=== PATIENT | female | born 1930 | race Caucasian/White ===

== ENCOUNTER 2017-07-16 18:39 | Inpatient (IN) | payer MEDICARE, MEDICAID ==
[2017-07-16] VITALS (7 sets, daily range): BP systolic 104–140; BP diastolic 60–71
[~2017-07-16] VITALS: Ht 152.4 cm; Wt 77.1 kg
[~2017-07-16 18:39] MED LIST: ACETAMINOPHEN80 M2 PO; ARICEPT10 MG ORAL; BACTRIM-DS1 EA ORAL; BENAZEPRIL HCL20 MG ORAL; BENZONATATE100 MG ORAL; BETHANECHOL CHL10 MG ORAL; BISACODYL10 M1 RC; CALCITONIN-SAL3.7 ML NS; CALCIUM CARBON500 M1 PO; DOCUSATE SODIU100 M2 ORAL; GABAPENTIN100 MG ORAL; IRBESARTAN300 MG ORAL; LIDODERM700 M1 TOPIC; MIRALAX17 G2 ORAL; MIRTAZAPINE7.5 MG ORAL; MOM30 ML ORAL; OSTEO BI-FLEX1 EAC3 PO; REGLAN10 MG ORAL; UNOBMED; VITAMIN D1000 UNI1 ORAL; ZANTAC300 MG ORAL
[2017-07-16 19:22] LABS: BASOPHILS % (AUTO) 0.5 % (0.0-2.0); EOSINOPHILS % (AUTO) 0.1 % (0.0-3.0); HEMATOCRIT 31.2 % (37.0-47.0); HEMOGLOBIN 9.1 G/DL (12.0-16.0); LYMPHOCYTES % (AUTO) 25.2 % (20.0-45.0); MEAN CORPUSCULAR VOLUME 91 FL (80-99); MONOCYTES % (AUTO) 2.3 % (1.0-10.0); PLATELET COUNT 330 K/UL (150-450); RED BLOOD COUNT 3.44 M/UL (4.20-5.40); RED CELL DISTRIBUTION WIDTH 21.2 % (11.6-14.8); WHITE BLOOD COUNT 15.7 K/UL (4.8-10.8)
[2017-07-16 19:28] LABS: ANION GAP 13 mmol/L (5-15); BLOOD UREA NITROGEN 24 mg/dL (7-18); CALCIUM 8.2 MG/DL (8.5-10.1); CARBON DIOXIDE 22 MMOL/L (21-32); CHLORIDE 98 MMOL/L (98-107); CREATININE 0.9 MG/DL (0.55-1.30); POTASSIUM 5.3 MMOL/L (3.5-5.1); SODIUM 133 MMOL/L (136-145)
[2017-07-16 19:42] LABS: ALANINE AMINOTRANSFERASE 26 U/L (12-78); ALBUMIN/GLOBULIN RATIO 0.5 (1.0-2.7); ALKALINE PHOSPHATASE 69 U/L (46-116); ASPARTATE AMINO TRANSFERASE 138 U/L (15-37); BILIRUBIN,TOTAL 0.2 MG/DL (0.2-1.0); CKMB 14.9 NG/ML (0.0-3.6); CREATINE KINASE 267 U/L (26-308)
[2017-07-16] MEDS ORDERED: AMLODIPINE BESY10 MG GT (19:47)
[2017-07-16] MEDS ORDERED: METOPROLOL TART25 MG GT (19:47)
[2017-07-16] MEDS ORDERED: LISINOPRIL5 MG GT (19:47)
[2017-07-16] MEDS ORDERED: BETHANECHOL CHL10 MG GT (19:47)
[2017-07-16] MEDS ORDERED: CLOPIDOGREL75 MG GT (19:47)
[2017-07-16] MEDS ORDERED: PRAVASTATIN SOD80 M1 GT (19:50)
[2017-07-16] MEDS ORDERED: ZANTAC150 MG GT (19:52)
[2017-07-16] MEDS ORDERED: ELIQUIS2.5 MG GT (19:52)
[2017-07-16] MEDS ORDERED: ACIDOPHILUS1 EAC4 GT (19:54)
[2017-07-16] MEDS ORDERED: CALCIUM500 M2 GT (19:54)
[2017-07-16] MEDS ORDERED: MELATONIN 3 MG1 EAC1 GT (19:59)
[2017-07-16] MEDS ORDERED: DOCUSATE SODIU100 M2 GT (19:59)
[2017-07-16] MEDS ORDERED: FOLIC ACID1 MG GT (19:59)
[2017-07-16] MEDS ORDERED: REGLAN10 M1 GT (20:03)
[2017-07-16] MEDS ORDERED: FERROUS SU220 MG/53 GT (20:03)
[2017-07-16] MEDS ORDERED: MULTIVITAMINS1 EAC2 GT (20:03)
[2017-07-16] MEDS ORDERED: ACETAMINOPHEN325 M1 GT (20:04)
[2017-07-16] MEDS ORDERED: NORCO 5-325 TA1 EAC1 GT (20:05)
[2017-07-16] MEDS ORDERED: VITAMIN B COMP1 EAC5 GT (20:09)
[2017-07-16 20:10] LABS: BILIRUBIN, URINE NEGATIVE (NEGATIVE); GLUCOSE, URINE (UA) NEGATIVE (NEGATIVE); KETONES,URINE NEGATIVE (NEGATIVE); LEUKOCYTE ESTERASE ,URINE 3+ (NEGATIVE); NITRITE,URINE NEGATIVE (NEGATIVE); PH,URINE 7 (4.5-8.0); PROTEIN,URINE 2+ (NEGATIVE); UROBILINOGEN,URINE 1 MG/DL (0.0-1.0)
[2017-07-16] MEDS ORDERED: GABAPENTIN100 MG GT (20:11)
[2017-07-16] MEDS ORDERED: ARICEPT10 MG GT (20:11)
[2017-07-16] MEDS ORDERED: LORATADINE10 M2 GT (20:11)
[2017-07-16 20:14] LABS: APPEARANCE,URINE SLIGHTLY CLOUDY; COLOR,URINE YELLOW
[2017-07-16] MEDS ORDERED: MIRALAX17 G2 GT (20:23)
[2017-07-16] MEDS ORDERED: CALCITONIN-SAL3.7 ML NS (20:23)
[2017-07-16] MEDS ORDERED: IPRATROPIU0.2 MG/1 M HHN (20:23)
[2017-07-16] MEDS ORDERED: OMEPRAZOLE40 M1 GT (20:24)
[2017-07-16] MEDS ORDERED: CARAFATE1 GM/10 M1 GT (20:33)
[2017-07-16] MEDS ORDERED: MILK OF MA400 MG/51 GT (20:39)
[2017-07-16] MEDS ORDERED: Azithromycin 500 MG in NS 275 ML IV ONE (21:45)
[2017-07-16] MEDS ORDERED: Piperacillin/Tazobactam 3.375 GM in NS 55 ML IVPB ONE (21:45)
[2017-07-16] MEDS ORDERED: Zosyn 3.375gm inj ONE (22:05)
--- NOTE | 2017-07-16 22:09 | Pulmonolgy Critical Care Note ---
Critical Care - Asmt/Plan Assessment/Plan: Acute hypoxemic respiratory failure requiring intubation Sepsis with shock PNA UTI with Staph aureus NSTEMI LBBB Acute toxic metabolic encephalopathy on chronic dementia ( likely due to to sepsis, NSTEMI) Acute anemia requiring blood transfusion Lactic acidosis Transaminitis Severe protein calorie malnutrition Dehydration Plan Transfered to ICU Orally inubated on vent support Titrate FiO2 up maintain O2 saturation above 92% Pulmonary toilet today ABG stable, Fup with daily CXR and ABG Respiratory: adjust tidal volume, monitor respiratory rate, adjust FIO2, CXR, ABG Cardiac: continue to monitor HR/BP Renal: F/U I&O Infectious Disease: check cultures, continue antibiotics Gastrointestinal: hold feedings Endocrine: monitor blood sugar Hematologic: monitor H/H Neurologic: PRN Ativan, PRN Morphine Affect: PRN ativan Prophylaxis: Protonix, SCDs Disposition: keep in ICU Time Spent (Minutes): 40 Notes Reviewed: tv technician Discussed with: nurses, consultants, case packer and sealericu manager - Objective Last 24 Hour Vital Signs Date Time Temp Pulse Resp B/P (MAP) Pulse Ox O2 Delivery O2 Flow Rate FiO2 07/16/17 21:04 87 14 100 07/16/17 20:50 100 07/16/17 19:02 110 38 Bi-pap 100 07/16/17 19:00 100 07/16/17 18:59 110 38 97 Facial 100 07/16/17 18:41 108 28 Bi-pap 100 07/16/17 18:41 99.1 108 28 104/60 92 Mechanical Ventilator 07/16/17 18:31 98.2 109 26 146/63 81 Non-Rebreather Status: obtunded Condition: critical HEENT: atraumatic, normocephalic Neck: full ROM Lungs: rhonchi Heart: HR/BP stable, regular Abdomen: soft, non-tender, active bowel sounds Extremities: no C/C/E Critical Care - Subjective ROS Limited/Unobtainable: Yes Condition: critical EKG Rhythm: Sinus Rhythm FI02: 100 Vent Support Breath Rate: 14 Vent Support Mode: AC Vent Tidal Volume: 500 Sputum Amount: Small PEEP: 0 PIP: 18 I&O: Intake and Output 07/16/17 07/17/17 19:00 07:00 Output Total 150 ml Balance -150 ml Output Urine Total 150 ml # Voids 1 ET-Tube: 7.5 ET Position: 22 ANGELA BROWN Jul 16, 2017 22:08
[2017-07-16] MEDS ORDERED: Miralax 17gm pkt ORAL PRN (22:15)
[2017-07-16] MEDS ORDERED: Morphine Sulfate 4mg/ml Inj IVP PRN (22:15)
[2017-07-16] MEDS ORDERED: Albuterol/Ipratropium 3ml neb HHN PRN (22:15)
[2017-07-16 22:42] LABS: INR 1.1 (0.9-1.1)
[2017-07-16] MEDS ORDERED: Azithromycin 500mg Inj IV ONE (22:51)
--- NOTE | 2017-07-16 22:54 | Emergency Room Report ---
History of Present Illness General Chief Complaint: Dyspnea/Respdistress Source: Patient, Medical Record Present Illness HPI 87-year-old female presents to ED for respiratory distress. Per EMS patient developed shortness of breath at snf today. O2 sats were in the 80s. Placed on BiPAP. Patient has dementia and is at her baseline. States that her O2 saturations have improved. Patient is unable to provide any additional history at this time. No other aggravating or leading factors. No other associated symptoms Allergies: Coded Allergies: No Known Allergies (Unverified , 05/25/13) Patient History Past Medical History: HTN Past Surgical History: none Pertinent Family History: none Social History: Denies: smoking, alcohol use, drug use Now: No Immunizations: UTD Reviewed Nursing Documentation: PMH: Agreed, PSxH: Agreed Nursing Documentation-PMH Past Medical History: No History, Except For Hx Cardiac Problems: Yes Hx Hypertension: Yes Hx Cancer: No Hx Gastrointestinal Problems: Yes Hx Neurological Problems: No Review of Systems All Other Systems: limited Physical Exam Vital Signs Date Time Temp Pulse Resp B/P (MAP) Pulse Ox O2 Delivery O2 Flow Rate FiO2 07/16/17 18:31 98.2 109 26 146/63 81 Non-Rebreather 07/16/17 18:41 100 Sp02 EP Interpretation: reviewed, normal General Appearance: moderate distress Head: normocephalic Eyes: bilateral eye normal inspection, bilateral eye PERRL ENT: normal ENT inspection Neck: normal inspection Respiratory: accessory muscle use, crackles Cardiovascular #1: regular rate, rhythm, no edema Gastrointestinal: normal bowel sounds, non tender, soft, non-distended, no guarding, no rebound Rectal: deferred Genitourinary: no CVA tenderness Musculoskeletal: normal inspection Neurologic: other - dementia Psychiatric: other - dementia Skin: normal inspection Lymphatic: normal inspection Procedures Critical Care Time Critical Care Time i. I feel this is a highly complex case requiring extensive working including EKG/Rhythm strip, Xray/CT/US, Blood/urine lab work, repeat exams while in ED, and administration of strong opiates/narcotics for pain control, admission to hospital or close patient follow up. Total time: 30 min bedside evaluation and treatment excludes procedures (EKG). Reason for critical care: hypoxic, respiratory distress, severe sepsis Possible complications: hypotension, hypertension, NV, shock, arrhythmias, metabolic acidosis, end organ damage, respiratory failure. Interventions: BiPAP, labs, IV fluids, EKG, chest x-ray. ABG. Intubation. Central line. Antibiotics. Consultation with cardiology. Consultation with intensive care Course: Patient presenting with respiratory distress. Patient placed on BiPAP. Chest x-ray shows significant pneumonia in the right base. Lactic acid greater than 9. Troponin greater than 10. EKG shows left bundle branch block. Unclear whether acute or chronic. ABG shows hypoxia. Because of labored breathing decision-making intubate. Central line placed. Discussed with intensive care and cardiology Consultations: nursing staff, EMS, family Performed by: Dr Culp Tolerated well condition = critical j. because of unstable vital signs this patient had a condition that could potentially threaten life or limb. I feel this is a critical patient who required my full attention while patient was considered critical. Total Critical Care Time excluding procedures was greater than 35 minutes Central Line Central Line : Consent: Emergent Central Line Lumen: triple Maximal Sterile Barrier Tech: yes cap, yes mask, yes sterile gown, yes sterile gloves, yes large sterile sheet, yes hand hygiene, yes chlorhexidine prep Central Line Postion: femoral (R) Anesthesia: local Complications: none Central Line Post Position: sutured, good blood return Attempts: One Patient Tolerated: Well Complications: None Intubation Intubation : Consent: Emergent Intubation Method: orotracheal Tube Size (cm): 7.5 Medications: Etomidate, Rocuronium Breath Sounds after Intubation: equal Post Intubation Xray: Yes Attempts: One Patient Tolerated: Well Complications: None Medical Decision Making Diagnostic Impression: Primary Impression: Septic shock Additional Impressions: Demand ischemia of myocardium Elevated troponin Pneumonia Qualified Codes: J18.1 - Lobar pneumonia, unspecified organism ER Course Hospital Course 87-year-old F presenting to ED with respiratory distress, hypoxia Differential diagnoses include: Pneumonia, CHF exacerbation, pneumothorax, fluid overload Clinical course Patient placed on stretcher. On fiber machine tender. After initial history and physical, I ordered BIPAP. I ordered labs, IV fluids, EKG, chest x-ray, blood cultures, UA. Labs -leukocytosis noted, hemoglobin/hematocrit stable, Trop > 10, lactate > 9 CXR - R lower lobe infiltrate EKG - LBBB ABG shows significant hypoxia. Patient continues labored breathing. I made decision to intubate the patient Right central femoral line placed Case discussed with Dr. Lopez and he agreed to the patient to his service for further care and support Dr. Nobles contacted for critical care Dr. Gutierres contacted for cardiology - recommends ordering 2D ECHO Given IV fluids. Given antibiotics. Heparin drip ordered. Given aspirin I feel this is a highly complex case requiring extensive working including EKG/ Rhythm strip, Xray/CT/US, Blood/urine lab work, repeat exams while in ED, and administration of strong opiates/narcotics for pain control, admission to hospital or close patient follow up. Diagnosis - pneumonia, septic shock, demand ischemia of myocardium, elevated trponin Patient admitted to ICU in critical condition Labs Test 07/16/17 18:43 07/16/17 18:50 07/16/17 19:28 07/16/17 19:40 Arterial Blood pH 7.200 (7.350-7.450) 7.309 (7.350-7.450) Arterial Blood Partial Pressure CO2 59.0 mmHg (35.0-45.0) 51.3 mmHg (35.0-45.0) Arterial Blood Partial Pressure O2 56.4 mmHg (75.0-100.0) 116.1 mmHg (75.0-100.0) Arterial Blood HCO3 22.5 mmol/L (22.0-26.0) 25.2 mmol/L (22.0-26.0) Arterial Blood Oxygen Saturation 78.9 % (92.0-98.0) 97.3 % (92.0-98.0) Arterial Blood Base Excess -5.7 -1.2 Jamie Test Positive Positive White Blood Count 15.7 K/UL (4.8-10.8) Red Blood Count 3.44 M/UL (4.20-5.40) Hemoglobin 9.1 G/DL (12.0-16.0) Hematocrit 31.2 % (37.0-47.0) Mean Corpuscular Volume 91 FL (80-99) Mean Corpuscular Hemoglobin 26.6 PG (27.0-31.0) Mean Corpuscular Hemoglobin Concent 29.3 G/DL (32.0-36.0) Red Cell Distribution Width 21.2 % (11.6-14.8) Platelet Count 330 K/UL (150-450) Mean Platelet Volume 9.8 FL (6.5-10.1) Neutrophils (%) (Auto) 72.0 % (45.0-75.0) Lymphocytes (%) (Auto) 25.2 % (20.0-45.0) Monocytes (%) (Auto) 2.3 % (1.0-10.0) Eosinophils (%) (Auto) 0.1 % (0.0-3.0) Basophils (%) (Auto) 0.5 % (0.0-2.0) Sodium Level 133 MMOL/L (136-145) Potassium Level 5.3 MMOL/L (3.5-5.1) Chloride Level 98 MMOL/L (98-107) Carbon Dioxide Level 22 MMOL/L (21-32) Anion Gap 13 mmol/L (5-15) Blood Urea Nitrogen 24 mg/dL (7-18) Creatinine 0.9 MG/DL (0.55-1.30) Estimat Glomerular Filtration Rate mL/min (>60) Glucose Level 278 MG/DL (74-106) Lactic Acid Level 9.10 mmol/L (0.66-2.22) Calcium Level 8.2 MG/DL (8.5-10.1) Total Bilirubin 0.2 MG/DL (0.2-1.0) Aspartate Amino Transf (AST/SGOT) 138 U/L (15-37) Alanine Aminotransferase (ALT/SGPT) 26 U/L (12-78) Alkaline Phosphatase 69 U/L (46-116) Total Creatine Kinase 267 U/L (26-308) Creatine Kinase MB 14.9 NG/ML (0.0-3.6) Creatine Kinase MB Relative Index 5.5 Troponin I 10.296 ng/mL (0.000-0.056) Pro-B-Type Natriuretic Peptide > 92503 pg/mL (0-125) Total Protein 6.4 G/DL (6.4-8.2) Albumin 2.0 G/DL (3.4-5.0) Globulin 4.4 g/dL Albumin/Globulin Ratio 0.5 (1.0-2.7) Urine Color Yellow Urine Appearance Slightly cloudy Urine pH 7 (4.5-8.0) Urine Specific [place] 1.010 (1.005-1.035) Urine Protein 2+ (NEGATIVE) Urine Glucose (UA) Negative (NEGATIVE) Urine Ketones Negative (NEGATIVE) Urine Occult Blood 4+ (NEGATIVE) Urine Nitrite Negative (NEGATIVE) Urine Bilirubin Negative (NEGATIVE) Urine Urobilinogen 1 MG/DL (0.0-1.0) Urine Leukocyte Esterase 3+ (NEGATIVE) Urine RBC Tntc /HPF (0 - 2) Urine WBC Tntc /HPF (0 - 2) Urine Squamous Epithelial Cells Few /LPF (NONE/OCC) Urine Bacteria Many /HPF (NONE) Test 07/16/17 21:45 07/16/17 22:03 Prothrombin Time 11.8 SEC (9.30-11.50) Prothromb Time International Ratio 1.1 (0.9-1.1) Activated Partial Thromboplast Time 31 SEC (23-33) Lactic Acid Level 2.60 mmol/L (0.66-2.22) Triglycerides Level 43 MG/DL (30-150) Arterial Blood pH 7.323 (7.350-7.450) Arterial Blood Partial Pressure CO2 54.1 mmHg (35.0-45.0) Arterial Blood Partial Pressure O2 236.4 mmHg (75.0-100.0) Arterial Blood HCO3 27.4 mmol/L (22.0-26.0) Arterial Blood Oxygen Saturation 98.8 % (92.0-98.0) Arterial Blood Base Excess 1.0 Jamie Test Positive EKG Diagnostic Results Rate: normal Rhythm: NSR ST Segments: other - LBBB ASA given to the pt in ED: Yes Rhythm Strip Diag. Results EP Interpretation: yes Rhythm: NSR, no PVC's, no ectopy Chest X-Ray Diagnostic Results Chest X-Ray Diagnostic Results : Chest X-Ray Ordered: Yes # of Views/Limited/Complete: 1 View Indication: Shortness of Breath EP Interpretation: Yes Interpretation: no pneumothorax, no acute cardiopulmonary disease, other - large R pneumonia Impression: Other - pneumonia Last Vital Signs Date Time Temp Pulse Resp B/P (MAP) Pulse Ox O2 Delivery O2 Flow Rate FiO2 07/16/17 22:16 80 07/16/17 21:04 87 14 07/16/17 19:02 Bi-pap 07/16/17 18:59 97 07/16/17 18:41 99.1 104/60 Status: improved Disposition: ADMITTED INPATIENT Condition: Critical Referrals: JEAN-PIERRE DEUTSCH (PCP) TIMMY CULP M.D. Jul 16, 2017 22:54
[2017-07-16] MEDS ORDERED: Heparin 25,000u/D5W 500ml 500 ML IV SCH (23:00)
[2017-07-16] MEDS: Heparin 5000 units/ml inj IV ONE (23:00)
[2017-07-16] MEDS ORDERED: Levophed 4mg/4mL Inj IV ONE (23:24)
[2017-07-17] VITALS (26 sets, daily range): BP systolic 90–142; BP diastolic 41–76
[2017-07-17] MEDS ORDERED: Amikacin 750 MG in NS 110 ML IV SCH (01:00)
[2017-07-17] MEDS ORDERED: Vancomycin 1gm inj IVPB ONE (01:32)
[2017-07-17] MEDS ORDERED: Ertapenem (INVanz) 1gm Inj ONE (01:32)
[2017-07-17] MEDS ORDERED: Amikacin 500mg/2mL Inj ONE (01:33)
[2017-07-17] MEDS: LORazepam Inj 2mg/ml 1ml IV PRN ×2 (01:44→20:52)
[2017-07-17] MEDS ORDERED: Vancomycin 1 GM in D5W 275 ML IVPB ONE (02:00)
[2017-07-17] MEDS ORDERED: Ertapenem 1 GM in NS 55 ML IV SCH (04:00)
[2017-07-17 06:20] LABS: HEMATOCRIT 22.8 % (37.0-47.0); HEMOGLOBIN 7.3 G/DL (12.0-16.0); MEAN CORPUSCULAR VOLUME 87 FL (80-99); PLATELET COUNT 229 K/UL (150-450); RED BLOOD COUNT 2.63 M/UL (4.20-5.40); WHITE BLOOD COUNT 18.3 K/UL (4.8-10.8)
[2017-07-17 06:53] LABS: ALANINE AMINOTRANSFERASE 35 U/L (12-78); ALBUMIN 1.6 G/DL (3.4-5.0); ALBUMIN/GLOBULIN RATIO 0.5 (1.0-2.7); ALKALINE PHOSPHATASE 46 U/L (46-116); ANION GAP 6 mmol/L (5-15); ASPARTATE AMINO TRANSFERASE 111 U/L (15-37); BILIRUBIN,DIRECT < 0.1 MG/DL (0.0-0.3); BILIRUBIN,TOTAL 0.2 MG/DL (0.2-1.0); BLOOD UREA NITROGEN 25 mg/dL (7-18); CARBON DIOXIDE 24 MMOL/L (21-32); CHLORIDE 105 MMOL/L (98-107); CREATININE 0.7 MG/DL (0.55-1.30); POTASSIUM 4.5 MMOL/L (3.5-5.1); SODIUM 135 MMOL/L (136-145)
[2017-07-17] MEDS ORDERED: Heparin 5000 units/ml inj SUBQ SCH (09:00)
[2017-07-17] MEDS ORDERED: Pantoprazole Inj IV SCH (09:00)
--- NOTE | 2017-07-17 09:30 | Diagnostic Imaging Report ---
Indication: Reason For Exam: SOB Technique: One view of the chest Comparison: 10/08/2015 Findings: There are bilateral pleural effusions now present. There is mild interstitial congestion. The heart size is upper limits normal. Epigastric surgical clips and biapical pleural scarring are again evident. The aorta is calcified. Old healed left rib fracture deformities are again noted Impression: Evidence of congestive heart failure and bilateral pleural effusions
--- NOTE | 2017-07-17 10:09 | Diagnostic Imaging Report ---
Indication: Post intubation Technique: One view of the chest Comparison: 2 hours earlier Findings: Interim endotracheal intubation, endotracheal tube tip in good position approximately 5 cm above the dino. Bilateral pleural effusions appear unchanged. Interstitial and airspace edema appears increased. The heart size is normal. Epigastric surgical clips are noted. Impression: Satisfactory endotracheal intubation Worsening bilateral interstitial edema, over 2 hours. Stable bilateral pleural effusions
--- NOTE | 2017-07-17 11:22 | Pulmonolgy Critical Care Note ---
Critical Care - Asmt/Plan Assessment/Plan: ASSESSMENT acute hypoxemic respiratory failure requiring intubation sepsis with shock PNA UTI elevated troponin likely NSTEMI acute toxic metabolic encephalopathy on chronic dementia ( likely due to to sepsis, NSTEMI) acute anemia requiring blood transfusion lactic acidosis PLAN OF CARE ICU vent support pulmonary toilet fup with daily CXR and ABG this am ABG stable on current settings, keep as is abx, ID consult as per PMD, fup with cx started on heparin gtt for troponin over 10, likely NSTEMI anemia this am transfuse 1 u PRBC serial troponin x2 ECG this am ECHO cardio eval as per PMD consider change to Lovenox due to anemia- per cardio GI prophylaxis pain management bowel regimen venous Duplex BLE case discussed and evaluated by supervising physician Critical Care - Objective Last 24 Hour Vital Signs Date Time Temp Pulse Resp B/P (MAP) Pulse Ox O2 Delivery O2 Flow Rate FiO2 07/17/17 10:57 50 07/17/17 10:00 67 19 117/44 100 Mechanical Ventilator 70 07/17/17 09:39 65 16 50 07/17/17 09:11 101.1 07/17/17 09:00 67 18 110/46 100 Mechanical Ventilator 70 07/17/17 08:00 87 07/17/17 08:00 102.6 75 20 121/42 100 Mechanical Ventilator 70 07/17/17 08:00 70 07/17/17 07:49 81 18 65 07/17/17 07:00 81 22 111/50 100 Mechanical Ventilator 70 07/17/17 06:00 84 22 110/50 100 Mechanical Ventilator 70 07/17/17 05:16 89 21 70 07/17/17 05:00 85 22 109/44 100 Mechanical Ventilator 70 07/17/17 04:00 98.0 89 22 99/60 100 Mechanical Ventilator 70 07/17/17 03:00 74 20 92/76 100 Mechanical Ventilator 70 07/17/17 02:51 73 19 70 07/17/17 02:00 84 18 90/55 100 Mechanical Ventilator 70 07/17/17 01:00 88 25 129/75 100 Mechanical Ventilator 70 07/17/17 00:44 88 07/17/17 00:44 70 07/17/17 00:40 98.8 88 25 129/75 100 Mechanical Ventilator 70 07/17/17 00:40 100 07/17/17 00:32 113 26 70 07/17/17 00:20 99.0 94 26 142/68 100 Mechanical Ventilator 70 07/17/17 00:20 99.0 94 26 142/68 100 Mechanical Ventilator 70 07/17/17 00:20 26 07/17/17 00:20 26 07/17/17 00:20 26 07/17/17 00:10 89 24 125/69 100 Mechanical Ventilator 70 07/17/17 00:10 24 07/17/17 00:10 24 07/17/17 00:10 24 07/16/17 23:55 22 07/16/17 23:55 22 07/16/17 23:55 22 07/16/17 23:55 85 22 105/65 100 Mechanical Ventilator 70 07/16/17 23:40 90 20 109/66 100 Mechanical Ventilator 70 07/16/17 23:40 20 07/16/17 23:40 20 07/16/17 23:40 20 07/16/17 23:25 20 07/16/17 23:25 20 07/16/17 23:25 20 07/16/17 23:25 86 20 115/67 100 Mechanical Ventilator 70 07/16/17 23:10 22 07/16/17 23:10 94 22 125/64 97 Mechanical Ventilator 70 07/16/17 23:00 70 07/16/17 22:51 109 24 70 07/16/17 22:16 80 07/16/17 22:15 142/68 07/16/17 22:00 80 07/16/17 21:05 98.9 89 21 140/71 97 Mechanical Ventilator 100 07/16/17 21:04 87 14 100 07/16/17 20:50 100 07/16/17 19:20 98 35 110/65 96 Bi-pap 100 07/16/17 19:02 110 38 Bi-pap 100 07/16/17 19:00 100 07/16/17 18:59 110 38 97 Facial 100 07/16/17 18:41 108 28 Bi-pap 100 07/16/17 18:41 99.1 108 28 104/60 92 Mechanical Ventilator 07/16/17 18:31 98.2 109 26 146/63 81 Non-Rebreather Condition: critical HEENT: atraumatic, normocephalic, other - OP with ET in place Lungs: clear Heart: HR/BP stable Abdomen: soft, non-tender Extremities: no C/C/E Critical Care - Subjective ROS Limited/Unobtainable: Yes Interval Events: intubated with leucocytosis started on Heparin gtt due to elevated troponin this am with worsening anemia no signs of respiratory distress on current settings Condition: critical EKG Rhythm: Sinus Rhythm FI02: 50 Vent Support Breath Rate: 16 Vent Support Mode: AC Vent Tidal Volume: 500 Sputum Amount: Small PEEP: 5.0 PIP: 25 Fluids: NS at 100 Drips: heparin gtt at 12 ml/hr I&O: Intake and Output 07/17/17 07/18/17 19:00 07:00 Intake Total 236 ml Output Total 90 ml Balance 146 ml IV Total 236 ml Output Urine Total 90 ml CXR: Worsening bilateral interstitial edema, over 2 hours. Stable bilateral pleural effusions ET-Tube: 7.5 ET Position: 22 Sukumar ([facility]Fari[facility] Porter NP Jul 17, 2017 11:22
--- NOTE | 2017-07-17 11:24 | Infectious Diseases Prog Note ---
Assessment/Plan Assessment/Plan Full consult dictated: A) 1) sepsis, leukocytosis, fevers 2) uti, ? pna, ? c.diff. 3) pmh noted 4) allergies - negative P) 1) meropenem, vancomycin, azithromycin 2) check sc, labs, uc, c.diff., chest x-ray 3) icu, vent, supportive care 4) thank you Subjective Allergies: Coded Allergies: No Known Allergies (Unverified , 05/25/13) Objective Vital Signs Last 24 Hour Vital Signs Date Time Temp Pulse Resp B/P (MAP) Pulse Ox O2 Delivery O2 Flow Rate FiO2 07/17/17 10:57 50 07/17/17 10:42 66 17 50 07/17/17 10:00 67 19 117/44 100 Mechanical Ventilator 70 07/17/17 09:39 65 16 50 07/17/17 09:11 101.1 07/17/17 09:00 67 18 110/46 100 Mechanical Ventilator 70 07/17/17 08:00 87 07/17/17 08:00 102.6 75 20 121/42 100 Mechanical Ventilator 70 07/17/17 08:00 70 07/17/17 07:49 81 18 65 07/17/17 07:00 81 22 111/50 100 Mechanical Ventilator 70 07/17/17 06:00 84 22 110/50 100 Mechanical Ventilator 70 07/17/17 05:16 89 21 70 07/17/17 05:00 85 22 109/44 100 Mechanical Ventilator 70 07/17/17 04:00 98.0 89 22 99/60 100 Mechanical Ventilator 70 07/17/17 03:00 74 20 92/76 100 Mechanical Ventilator 70 07/17/17 02:51 73 19 70 07/17/17 02:00 84 18 90/55 100 Mechanical Ventilator 70 07/17/17 01:00 88 25 129/75 100 Mechanical Ventilator 70 07/17/17 00:44 88 07/17/17 00:44 70 07/17/17 00:40 98.8 88 25 129/75 100 Mechanical Ventilator 70 07/17/17 00:40 100 07/17/17 00:32 113 26 70 07/17/17 00:20 99.0 94 26 142/68 100 Mechanical Ventilator 70 07/17/17 00:20 99.0 94 26 142/68 100 Mechanical Ventilator 70 07/17/17 00:20 26 12/15/17 00:20 26 07/17/17 00:20 26 07/17/17 00:10 89 24 125/69 100 Mechanical Ventilator 70 07/17/17 00:10 24 07/17/17 00:10 24 07/17/17 00:10 24 07/16/17 23:55 22 07/16/17 23:55 22 07/16/17 23:55 22 07/16/17 23:55 85 22 105/65 100 Mechanical Ventilator 70 07/16/17 23:40 90 20 109/66 100 Mechanical Ventilator 70 07/16/17 23:40 20 07/16/17 23:40 20 07/16/17 23:40 20 07/16/17 23:25 20 07/16/17 23:25 20 07/16/17 23:25 20 07/16/17 23:25 86 20 115/67 100 Mechanical Ventilator 70 07/16/17 23:10 22 07/16/17 23:10 94 22 125/64 97 Mechanical Ventilator 70 07/16/17 23:00 70 07/16/17 22:51 109 24 70 07/16/17 22:16 80 07/16/17 22:15 142/68 07/16/17 22:00 80 07/16/17 21:05 98.9 89 21 140/71 97 Mechanical Ventilator 100 07/16/17 21:04 87 14 100 07/16/17 20:50 100 07/16/17 19:20 98 35 110/65 96 Bi-pap 100 07/16/17 19:02 110 38 Bi-pap 100 07/16/17 19:00 100 07/16/17 18:59 110 38 97 Facial 100 07/16/17 18:41 108 28 Bi-pap 100 07/16/17 18:41 99.1 108 28 104/60 92 Mechanical Ventilator 07/16/17 18:31 98.2 109 26 146/63 81 Non-Rebreather Height (Feet): 5 Height (Inches): 2.00 Weight (Pounds): 105 Laboratory Tests Test 07/16/17 18:43 07/16/17 18:50 07/16/17 19:28 07/16/17 19:40 Arterial Blood pH 7.200 (7.350-7.450) 7.309 (7.350-7.450) Arterial Blood Partial Pressure CO2 59.0 mmHg (35.0-45.0) *H 51.3 mmHg (35.0-45.0) H Arterial Blood Partial Pressure O2 56.4 mmHg (75.0-100.0) L 116.1 mmHg (75.0-100.0) H Arterial Blood HCO3 22.5 mmol/L (22.0-26.0) 25.2 mmol/L (22.0-26.0) Arterial Blood Oxygen Saturation 78.9 % (92.0-98.0) L 97.3 % (92.0-98.0) Arterial Blood Base Excess -5.7 -1.2 Jamie Test Positive Positive White Blood Count 15.7 K/UL (4.8-10.8) H Red Blood Count 3.44 M/UL (4.20-5.40) L Hemoglobin 9.1 G/DL (12.0-16.0) L Hematocrit 31.2 % (37.0-47.0) L Mean Corpuscular Volume 91 FL (80-99) Mean Corpuscular Hemoglobin 26.6 PG (27.0-31.0) L Mean Corpuscular Hemoglobin Concent 29.3 G/DL (32.0-36.0) L Red Cell Distribution Width 21.2 % (11.6-14.8) H Platelet Count 330 K/UL (150-450) Mean Platelet Volume 9.8 FL (6.5-10.1) Neutrophils (%) (Auto) 72.0 % (45.0-75.0) Lymphocytes (%) (Auto) 25.2 % (20.0-45.0) Monocytes (%) (Auto) 2.3 % (1.0-10.0) Eosinophils (%) (Auto) 0.1 % (0.0-3.0) Basophils (%) (Auto) 0.5 % (0.0-2.0) Sodium Level 133 MMOL/L (136-145) L Potassium Level 5.3 MMOL/L (3.5-5.1) H Chloride Level 98 MMOL/L (98-107) Carbon Dioxide Level 22 MMOL/L (21-32) Anion Gap 13 mmol/L (5-15) Blood Urea Nitrogen 24 mg/dL (7-18) H Creatinine 0.9 MG/DL (0.55-1.30) Estimat Glomerular Filtration Rate mL/min (>60) Glucose Level 278 MG/DL (74-106) H Lactic Acid Level 9.10 mmol/L (0.66-2.22) H Calcium Level 8.2 MG/DL (8.5-10.1) L Total Bilirubin 0.2 MG/DL (0.2-1.0) Aspartate Amino Transf (AST/SGOT) 138 U/L (15-37) H Alanine Aminotransferase (ALT/SGPT) 26 U/L (12-78) Alkaline Phosphatase 69 U/L (46-116) Total Creatine Kinase 267 U/L (26-308) Creatine Kinase MB 14.9 NG/ML (0.0-3.6) H Creatine Kinase MB Relative Index 5.5 Troponin I 10.296 ng/mL (0.000-0.056) Pro-B-Type Natriuretic Peptide > 74083 pg/mL (0-125) H Total Protein 6.4 G/DL (6.4-8.2) Albumin 2.0 G/DL (3.4-5.0) L Globulin 4.4 g/dL Albumin/Globulin Ratio 0.5 (1.0-2.7) L Urine Color Yellow Urine Appearance Slightly cloudy Urine pH 7 (4.5-8.0) Urine Specific [place] 1.010 (1.005-1.035) Urine Protein 2+ (NEGATIVE) H Urine Glucose (UA) Negative (NEGATIVE) Urine Ketones Negative (NEGATIVE) Urine Occult Blood 4+ (NEGATIVE) H Urine Nitrite Negative (NEGATIVE) Urine Bilirubin Negative (NEGATIVE) Urine Urobilinogen 1 MG/DL (0.0-1.0) H Urine Leukocyte Esterase 3+ (NEGATIVE) H Urine RBC Tntc /HPF (0 - 2) H Urine WBC Tntc /HPF (0 - 2) H Urine Squamous Epithelial Cells Few /LPF (NONE/OCC) Urine Bacteria Many /HPF (NONE) H Test 07/16/17 21:45 07/16/17 22:03 07/17/17 05:20 07/17/17 09:36 Prothrombin Time 11.8 SEC (9.30-11.50) H Prothromb Time International Ratio 1.1 (0.9-1.1) Activated Partial Thromboplast Time 31 SEC (23-33) 67 SEC (23-33) H Lactic Acid Level 2.60 mmol/L (0.66-2.22) H 1.30 mmol/L (0.66-2.22) Triglycerides Level 43 MG/DL (30-150) Arterial Blood pH 7.323 (7.350-7.450) 7.470 (7.350-7.450) Arterial Blood Partial Pressure CO2 54.1 mmHg (35.0-45.0) H 33.1 mmHg (35.0-45.0) L Arterial Blood Partial Pressure O2 236.4 mmHg (75.0-100.0) H 207.0 mmHg (75.0-100.0) H Arterial Blood HCO3 27.4 mmol/L (22.0-26.0) H 23.7 mmol/L (22.0-26.0) Arterial Blood Oxygen Saturation 98.8 % (92.0-98.0) H 98.6 % (92.0-98.0) H Arterial Blood Base Excess 1.0 0.2 Jamie Test Positive Positive White Blood Count 18.3 K/UL (4.8-10.8) H Red Blood Count 2.63 M/UL (4.20-5.40) L Hemoglobin 7.3 G/DL (12.0-16.0) L Hematocrit 22.8 % (37.0-47.0) L Mean Corpuscular Volume 87 FL (80-99) Mean Corpuscular Hemoglobin 27.7 PG (27.0-31.0) Mean Corpuscular Hemoglobin Concent 32.0 G/DL (32.0-36.0) Red Cell Distribution Width 21.0 % (11.6-14.8) H Platelet Count 229 K/UL (150-450) Mean Platelet Volume 10.3 FL (6.5-10.1) H Neutrophils (%) (Auto) % (45.0-75.0) Lymphocytes (%) (Auto) % (20.0-45.0) Monocytes (%) (Auto) % (1.0-10.0) Eosinophils (%) (Auto) % (0.0-3.0) Basophils (%) (Auto) % (0.0-2.0) Differential Total Cells Counted 100 Neutrophils % (Manual) 83 % (45-75) H Lymphocytes % (Manual) 3 % (20-45) L Monocytes % (Manual) 4 % (1-10) Eosinophils % (Manual) 0 % (0-3) Basophils % (Manual) 0 % (0-2) Band Neutrophils 10 % (0-8) H Platelet Estimate Adequate Platelet Morphology Normal Hypochromasia 3+ Anisocytosis 3+ Sodium Level 135 MMOL/L (136-145) L Potassium Level 4.5 MMOL/L (3.5-5.1) Chloride Level 105 MMOL/L (98-107) Carbon Dioxide Level 24 MMOL/L (21-32) Anion Gap 6 mmol/L (5-15) Blood Urea Nitrogen 25 mg/dL (7-18) H Creatinine 0.7 MG/DL (0.55-1.30) Estimat Glomerular Filtration Rate mL/min (>60) Glucose Level 142 MG/DL (74-106) #H Calcium Level 7.0 MG/DL (8.5-10.1) L Total Bilirubin 0.2 MG/DL (0.2-1.0) Direct Bilirubin < 0.1 MG/DL (0.0-0.3) Aspartate Amino Transf (AST/SGOT) 111 U/L (15-37) H Alanine Aminotransferase (ALT/SGPT) 35 U/L (12-78) Alkaline Phosphatase 46 U/L (46-116) Total Protein 5.0 G/DL (6.4-8.2) L Albumin 1.6 G/DL (3.4-5.0) L Globulin 3.4 g/dL Albumin/Globulin Ratio 0.5 (1.0-2.7) L Current Medications Medications (Trade) Dose Ordered Sig/Analia Route PRN Reason Start Time Stop Time Status Last Admin Dose Admin Acetaminophen (Tylenol) 650 mg Q4H PRN ORAL fever 07/16/17 22:15 18 22:14 07/17/17 08:06 Albuterol/ Ipratropium (Albuterol/ Ipratropium) 3 ml EVERY 4 HOURS PRN HHN Shortness of Breath 07/16/17 22:15 07/21/17 22:14 Amikacin Sulfate 750 mg/Sodium Chloride 113 ml @ 113 mls/hr Q48H IV 07/17/17 01:00 07/24/17 00:59 07/17/17 01:40 Heparin Sodium/ Dextrose 500 ml @ 11.975 mls/ hr adjust per protocol IV 07/16/17 23:00 08/15/17 22:59 07/16/17 23:41 Lorazepam (Ativan 2mg/ml 1ml) 2 mg EVERY 2 HOURS PRN IV For Anxiety 07/16/17 22:15 07/23/17 22:14 07/17/17 01:44 Morphine Sulfate (Morphine Sulfate) 4 mg EVERY 4 HOURS PRN IVP Severe Pain (Pain Scale 7-10) 07/16/17 22:15 07/23/17 22:14 Norepinephrine Bitartrate 4 mg/ Dextrose 254 ml @ 0 mls/hr Q24H IV 07/16/17 22:15 08/15/17 22:14 Ondansetron HCl (Zofran) 4 mg Q6H PRN IVP Nausea & Vomiting 07/16/17 22:15 08/15/17 22:14 Pantoprazole (Protonix) 40 mg DAILY IV 07/17/17 09:00 08/16/17 08:59 07/17/17 08:06 Polyethylene Glycol (Miralax) 17 gm DAILYPRN PRN ORAL Constipation 07/16/17 22:15 08/15/17 22:14 Sodium Chloride 1,000 ml @ 100 mls/hr Q10H IVLG 07/16/17 22:07 08/15/17 22:06 07/17/17 08:07 Vancomycin HCl (Vanco rx to dose) 1 ea DAILY PRN MISC per protocol 07/17/17 00:45 08/16/17 00:44 Vancomycin HCl 500 mg/Dextrose 110 ml @ 110 mls/hr Q24H IVPB 07/17/17 21:00 07/22/17 20:59 MIHAELA TUBBS Jul 17, 2017 11:24
[2017-07-17] MEDS ORDERED: Amikacin Rx to dose MISC PRN (12:00)
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
--- NOTE | 2017-07-17 12:51 | Cardiac Electrophysiology PN ---
Subjective Subjective [id number]. Objective Last 24 Hour Vital Signs Date Time Temp Pulse Resp B/P (MAP) Pulse Ox O2 Delivery O2 Flow Rate FiO2 07/17/17 11:00 64 16 126/44 100 Mechanical Ventilator 50 07/17/17 10:57 50 07/17/17 10:42 66 17 50 07/17/17 10:00 67 19 117/44 100 Mechanical Ventilator 70 07/17/17 09:39 65 16 50 07/17/17 09:11 101.1 07/17/17 09:00 67 18 110/46 100 Mechanical Ventilator 70 07/17/17 08:00 87 07/17/17 08:00 102.6 75 20 121/42 100 Mechanical Ventilator 70 07/17/17 08:00 70 07/17/17 07:49 81 18 65 07/17/17 07:00 81 22 111/50 100 Mechanical Ventilator 70 07/17/17 06:00 84 22 110/50 100 Mechanical Ventilator 70 07/17/17 05:16 89 21 70 07/17/17 05:00 85 22 109/44 100 Mechanical Ventilator 70 07/17/17 04:00 98.0 89 22 99/60 100 Mechanical Ventilator 70 07/17/17 03:00 74 20 92/76 100 Mechanical Ventilator 70 07/17/17 02:51 73 19 70 07/17/17 02:00 84 18 90/55 100 Mechanical Ventilator 70 07/17/17 01:00 88 25 129/75 100 Mechanical Ventilator 70 07/17/17 00:44 88 07/17/17 00:44 70 07/17/17 00:40 98.8 88 25 129/75 100 Mechanical Ventilator 70 07/17/17 00:40 100 07/17/17 00:32 113 26 70 07/17/17 00:20 99.0 94 26 142/68 100 Mechanical Ventilator 70 07/17/17 00:20 99.0 94 26 142/68 100 Mechanical Ventilator 70 07/17/17 00:20 26 07/17/17 00:20 26 07/17/17 00:20 26 07/17/17 00:10 89 24 125/69 100 Mechanical Ventilator 70 07/17/17 00:10 24 07/17/17 00:10 24 07/17/17 00:10 24 07/16/17 23:55 22 12/14/17 23:55 22 07/16/17 23:55 22 07/16/17 23:55 85 22 105/65 100 Mechanical Ventilator 70 07/16/17 23:40 90 20 109/66 100 Mechanical Ventilator 70 07/16/17 23:40 20 07/16/17 23:40 20 07/16/17 23:40 20 07/16/17 23:25 20 07/16/17 23:25 20 07/16/17 23:25 20 07/16/17 23:25 86 20 115/67 100 Mechanical Ventilator 70 07/16/17 23:10 22 07/16/17 23:10 94 22 125/64 97 Mechanical Ventilator 70 07/16/17 23:00 70 07/16/17 22:51 109 24 70 07/16/17 22:16 80 07/16/17 22:15 142/68 07/16/17 22:00 80 07/16/17 21:05 98.9 89 21 140/71 97 Mechanical Ventilator 100 07/16/17 21:04 87 14 100 07/16/17 20:50 100 07/16/17 19:20 98 35 110/65 96 Bi-pap 100 07/16/17 19:02 110 38 Bi-pap 100 07/16/17 19:00 100 07/16/17 18:59 110 38 97 Facial 100 07/16/17 18:41 108 28 Bi-pap 100 07/16/17 18:41 99.1 108 28 104/60 92 Mechanical Ventilator 07/16/17 18:31 98.2 109 26 146/63 81 Non-Rebreather Intake and Output 07/17/17 07/18/17 19:00 07:00 Intake Total 348 ml Output Total 110 ml Balance 238 ml IV Total 348 ml Output Urine Total 110 ml Laboratory Tests Test 07/16/17 18:43 07/16/17 18:50 07/16/17 19:28 07/16/17 19:40 Arterial Blood pH 7.200 (7.350-7.450) 7.309 (7.350-7.450) Arterial Blood Partial Pressure CO2 59.0 mmHg (35.0-45.0) *H 51.3 mmHg (35.0-45.0) H Arterial Blood Partial Pressure O2 56.4 mmHg (75.0-100.0) L 116.1 mmHg (75.0-100.0) H Arterial Blood HCO3 22.5 mmol/L (22.0-26.0) 25.2 mmol/L (22.0-26.0) Arterial Blood Oxygen Saturation 78.9 % (92.0-98.0) L 97.3 % (92.0-98.0) Arterial Blood Base Excess -5.7 -1.2 Jamie Test Positive Positive White Blood Count 15.7 K/UL (4.8-10.8) H Red Blood Count 3.44 M/UL (4.20-5.40) L Hemoglobin 9.1 G/DL (12.0-16.0) L Hematocrit 31.2 % (37.0-47.0) L Mean Corpuscular Volume 91 FL (80-99) Mean Corpuscular Hemoglobin 26.6 PG (27.0-31.0) L Mean Corpuscular Hemoglobin Concent 29.3 G/DL (32.0-36.0) L Red Cell Distribution Width 21.2 % (11.6-14.8) H Platelet Count 330 K/UL (150-450) Mean Platelet Volume 9.8 FL (6.5-10.1) Neutrophils (%) (Auto) 72.0 % (45.0-75.0) Lymphocytes (%) (Auto) 25.2 % (20.0-45.0) Monocytes (%) (Auto) 2.3 % (1.0-10.0) Eosinophils (%) (Auto) 0.1 % (0.0-3.0) Basophils (%) (Auto) 0.5 % (0.0-2.0) Sodium Level 133 MMOL/L (136-145) L Potassium Level 5.3 MMOL/L (3.5-5.1) H Chloride Level 98 MMOL/L (98-107) Carbon Dioxide Level 22 MMOL/L (21-32) Anion Gap 13 mmol/L (5-15) Blood Urea Nitrogen 24 mg/dL (7-18) H Creatinine 0.9 MG/DL (0.55-1.30) Estimat Glomerular Filtration Rate mL/min (>60) Glucose Level 278 MG/DL (74-106) H Lactic Acid Level 9.10 mmol/L (0.66-2.22) H Calcium Level 8.2 MG/DL (8.5-10.1) L Total Bilirubin 0.2 MG/DL (0.2-1.0) Aspartate Amino Transf (AST/SGOT) 138 U/L (15-37) H Alanine Aminotransferase (ALT/SGPT) 26 U/L (12-78) Alkaline Phosphatase 69 U/L (46-116) Total Creatine Kinase 267 U/L (26-308) Creatine Kinase MB 14.9 NG/ML (0.0-3.6) H Creatine Kinase MB Relative Index 5.5 Troponin I 10.296 ng/mL (0.000-0.056) Pro-B-Type Natriuretic Peptide > 78125 pg/mL (0-125) H Total Protein 6.4 G/DL (6.4-8.2) Albumin 2.0 G/DL (3.4-5.0) L Globulin 4.4 g/dL Albumin/Globulin Ratio 0.5 (1.0-2.7) L Urine Color Yellow Urine Appearance Slightly cloudy Urine pH 7 (4.5-8.0) Urine Specific [place] 1.010 (1.005-1.035) Urine Protein 2+ (NEGATIVE) H Urine Glucose (UA) Negative (NEGATIVE) Urine Ketones Negative (NEGATIVE) Urine Occult Blood 4+ (NEGATIVE) H Urine Nitrite Negative (NEGATIVE) Urine Bilirubin Negative (NEGATIVE) Urine Urobilinogen 1 MG/DL (0.0-1.0) H Urine Leukocyte Esterase 3+ (NEGATIVE) H Urine RBC Tntc /HPF (0 - 2) H Urine WBC Tntc /HPF (0 - 2) H Urine Squamous Epithelial Cells Few /LPF (NONE/OCC) Urine Bacteria Many /HPF (NONE) H Test 07/16/17 21:45 07/16/17 22:03 07/17/17 05:20 07/17/17 09:36 Prothrombin Time 11.8 SEC (9.30-11.50) H Prothromb Time International Ratio 1.1 (0.9-1.1) Activated Partial Thromboplast Time 31 SEC (23-33) 67 SEC (23-33) H Lactic Acid Level 2.60 mmol/L (0.66-2.22) H 1.30 mmol/L (0.66-2.22) Triglycerides Level 43 MG/DL (30-150) Arterial Blood pH 7.323 (7.350-7.450) 7.470 (7.350-7.450) Arterial Blood Partial Pressure CO2 54.1 mmHg (35.0-45.0) H 33.1 mmHg (35.0-45.0) L Arterial Blood Partial Pressure O2 236.4 mmHg (75.0-100.0) H 207.0 mmHg (75.0-100.0) H Arterial Blood HCO3 27.4 mmol/L (22.0-26.0) H 23.7 mmol/L (22.0-26.0) Arterial Blood Oxygen Saturation 98.8 % (92.0-98.0) H 98.6 % (92.0-98.0) H Arterial Blood Base Excess 1.0 0.2 Jamie Test Positive Positive White Blood Count 18.3 K/UL (4.8-10.8) H Red Blood Count 2.63 M/UL (4.20-5.40) L Hemoglobin 7.3 G/DL (12.0-16.0) L Hematocrit 22.8 % (37.0-47.0) L Mean Corpuscular Volume 87 FL (80-99) Mean Corpuscular Hemoglobin 27.7 PG (27.0-31.0) Mean Corpuscular Hemoglobin Concent 32.0 G/DL (32.0-36.0) Red Cell Distribution Width 21.0 % (11.6-14.8) H Platelet Count 229 K/UL (150-450) Mean Platelet Volume 10.3 FL (6.5-10.1) H Neutrophils (%) (Auto) % (45.0-75.0) Lymphocytes (%) (Auto) % (20.0-45.0) Monocytes (%) (Auto) % (1.0-10.0) Eosinophils (%) (Auto) % (0.0-3.0) Basophils (%) (Auto) % (0.0-2.0) Differential Total Cells Counted 100 Neutrophils % (Manual) 83 % (45-75) H Lymphocytes % (Manual) 3 % (20-45) L Monocytes % (Manual) 4 % (1-10) Eosinophils % (Manual) 0 % (0-3) Basophils % (Manual) 0 % (0-2) Band Neutrophils 10 % (0-8) H Platelet Estimate Adequate Platelet Morphology Normal Hypochromasia 3+ Anisocytosis 3+ Sodium Level 135 MMOL/L (136-145) L Potassium Level 4.5 MMOL/L (3.5-5.1) Chloride Level 105 MMOL/L (98-107) Carbon Dioxide Level 24 MMOL/L (21-32) Anion Gap 6 mmol/L (5-15) Blood Urea Nitrogen 25 mg/dL (7-18) H Creatinine 0.7 MG/DL (0.55-1.30) Estimat Glomerular Filtration Rate mL/min (>60) Glucose Level 142 MG/DL (74-106) #H Calcium Level 7.0 MG/DL (8.5-10.1) L Total Bilirubin 0.2 MG/DL (0.2-1.0) Direct Bilirubin < 0.1 MG/DL (0.0-0.3) Aspartate Amino Transf (AST/SGOT) 111 U/L (15-37) H Alanine Aminotransferase (ALT/SGPT) 35 U/L (12-78) Alkaline Phosphatase 46 U/L (46-116) Troponin I Pending Total Protein 5.0 G/DL (6.4-8.2) L Albumin 1.6 G/DL (3.4-5.0) L Globulin 3.4 g/dL Albumin/Globulin Ratio 0.5 (1.0-2.7) L Test 07/17/17 11:00 Urine Legionella Antigen Pending Microbiology Date/Time Source Procedure Growth Status 07/17/17 01:20 Wound Gram Stain - Final Resulted 07/17/17 01:20 Wound Wound Culture Pending Resulted CHELSIE HOUSTON Jul 17, 2017 12:51
--- NOTE | 2017-07-17 13:12 | History and Physical ---
History of Present Illness General Date patient seen: Jul 17, 2017 Time patient seen: 17:42 Reason for Hospitalization: Dyspnea/Respdistress Present Illness HPI 87y/o female with pmh of ischemic cardiomyopathy (EF 40% per ECHO 07/2017), CVA , CAD s/p PCI to LAD (10/20/16), pAfib on Eliquis, Alzheimer's Dementia, s/p PEG , diffuse severe gastropathy, HTN who presents with SOB. Pt noted to be in respiratory distress w/ hypoxia at SNF. O2 sats in 80s per report. Pt more lethargic. No reports of f/c, n/v, d/c, chest pain. At baseline pt has dementia and is only A&Ox1. In ED, pt noted to by hypoxic and hypercapneic on ABG. She was trialed on BiPAP but failed to improved so she was eventually intubated. Labs showed leukocytosisT to 15.7K, lactic acidosis to 9, elevated troponin to 10. Pt was started on heparin gtt per cardiology. She was also given IVFs, zosyn, and azithro in ED. Allergies: Coded Allergies: No Known Allergies (Unverified , 05/25/13) Medication History Scheduled Amlodipine Besylate* (Amlodipine Besylate*), 10 MG GT DAILY, (Reported) Apixaban (Eliquis), 2.5 MG GT BID, (Reported) Bethanechol* (Bethanechol*), 10 MG GT THREE TIMES A DAY, (Reported) Calcitonin,Dolliver,Synthetic (Calcitonin-Dolliver), 200 UNITS NS DAILY, (Reported) Calcium Carbonate (Calcium), 500 MG GT DAILY, (Reported) Clopidogrel* (Clopidogrel*), 75 MG GT DAILY, (Reported) Docusate Sodium (Docusate Sodium), 100 MG GT BID, (Reported) Donepezil Hcl* (Aricept*), 10 MG GT BEDTIME, (Reported) Ferrous Sulfate (Ferrous Sulfate), 330 MG GT THREE TIMES A DAY, (Reported) Folic Acid* (Folic Acid*), 1 MG GT DAILY, (Reported) Gabapentin* (Gabapentin*), 100 MG GT BEDTIME, (Reported) Lactobacillus Acidophilus (Acidophilus), 1 EACH GT DAILY, (Reported) Lisinopril (Lisinopril*), 5 MG GT DAILY, (Reported) Metoclopramide Hcl* (Reglan*), 10 MG GT BID, (Reported) Metoprolol Tartrate* (Metoprolol Tartrate*), 25 MG GT BID, (Reported) Multivitamins* (Multivitamins*), 1 TAB GT DAILY, (Reported) Omeprazole (Omeprazole), 40 MG GT BID, (Reported) Polyethylene Glycol 3350* (Miralax*), 17 GM GT DAILY, (Reported) Pravastatin Sod (Pravastatin Sod), 80 MG GT BEDTIME, (Reported) Ranitidine Hcl* (Zantac*), 300 MG GT BEDTIME, (Reported) Sucralfate (Carafate), 1 GM GT THREE TIMES A DAY, (Reported) Vitamin B Complex (Vitamin B Complex), 1 EACH GT DAILY, (Reported) Scheduled PRN Acetaminophen* (Acetaminophen 325MG Tablet*), 650 MG GT Q6H PRN for Mild Pain/ Temp > 100.5, (Reported) Hydrocodone Bit/Acetaminophen 5-325* ([place] 5-325 Tablet*), 1 TAB GT Q4H PRN for For Pain, (Reported) Ipratropium [place] 0.5MG/2.5ML (Ipratropium [place] 0.5MG/2.5ML), 0.5 MG HHN Q6H PRN for Shortness of Breath, (Reported) Loratadine (Loratadine), 10 MG GT DAILY PRN for ALLERGY, (Reported) Magnesium Hydroxide* (Milk Of Magnesia*), 30 ML GT DAILY PRN for Constipation, ( Reported) Melatonin/Pyridoxine HCl (B6) (Melatonin 3 mg Tablet), 2 EACH GT BEDTIME PRN for SLEEP AID, (Reported) Discontinued Medications Benazepril Hcl* (Benazepril Hcl*), 20 MG ORAL EVERY 12 HOURS, (Reported) Discontinued Reason: Pt stopped taking med Benzonatate* (Benzonatate*), 100 MG ORAL DAILY, (Reported) Discontinued Reason: Pt stopped taking med Gluc/Pradeep-MSM#1/C/Connor/Adrian/Bor (Osteo Bi-Flex Caplet), 1 EACH PO, (Reported) Discontinued Reason: Pt stopped taking med Lidocaine (Lidoderm), 1 PATCH TOPIC, (Reported) Discontinued Reason: Pt stopped taking med Trimethoprim/Sulfamethoxazole (Bactrim Ds Tablet), 1 EA ORAL TWICE A DAY Discontinued Reason: Therapy completed Patient History History Provided By: Family Member, Medical Record, PMD Healthcare decision maker shalini rodriguez Resuscitation status Full Code Advanced Directive on File No Past Medical/Surgical History Past Medical/Surgical History: (1) CVA (cerebral vascular accident) (2) Ischemic cardiomyopathy (3) CAD s/p PCI (4) Alzheimer's dementia (5) S/P percutaneous endoscopic gastrostomy (PEG) tube placement (6) diffuse severe gastropathy (7) paroxsymal atrial fibrillation Family History Family History: Patient reports no known family medical history. Social History Social History: (1) lives at [facility] Review of Systems ROS Narrative Unable to obtain as pt intubated, sedated Physical Exam Physical Exam Narrative General: intubated, sedated Head: normocephalic, without obvious abnormality, atraumatic Eyes: conjunctivae/corneas clear. PERRL, EOM's intact Throat: lips, mucosa, and tongue normal. MMM Neck: supple, symmetrical, trachea midline, and no JVD Lungs: clear to auscultation bilaterally Heart: regular rate and rhythm, S1, S2 normal, no murmur, click, rub or gallop Abdomen: soft, non-tender, non-distended, bowel sounds normal; +PEG c/d/i Extremities: extremities normal, atraumatic, no cyanosis or edema Pulses: 2+ and symmetric Skin: skin color, texture, turgor normal; no rashes or lesions Neurologic: sedated Last 24 Hour Vital Signs Date Time Temp Pulse Resp B/P (MAP) Pulse Ox O2 Delivery O2 Flow Rate FiO2 07/17/17 12:52 65 16 40 07/17/17 11:00 64 16 126/44 100 Mechanical Ventilator 50 07/17/17 10:57 50 07/17/17 10:42 66 17 50 07/17/17 10:00 67 19 117/44 100 Mechanical Ventilator 70 07/17/17 09:39 65 16 50 07/17/17 09:11 101.1 07/17/17 09:00 67 18 110/46 100 Mechanical Ventilator 70 07/17/17 08:00 87 07/17/17 08:00 102.6 75 20 121/42 100 Mechanical Ventilator 70 07/17/17 08:00 70 07/17/17 07:49 81 18 65 07/17/17 07:00 81 22 111/50 100 Mechanical Ventilator 70 07/17/17 06:00 84 22 110/50 100 Mechanical Ventilator 70 07/17/17 05:16 89 21 70 07/17/17 05:00 85 22 109/44 100 Mechanical Ventilator 70 07/17/17 04:00 98.0 89 22 99/60 100 Mechanical Ventilator 70 07/17/17 03:00 74 20 92/76 100 Mechanical Ventilator 70 07/17/17 02:51 73 19 70 07/17/17 02:00 84 18 90/55 100 Mechanical Ventilator 70 07/17/17 01:00 88 25 129/75 100 Mechanical Ventilator 70 07/17/17 00:44 88 07/17/17 00:44 70 07/17/17 00:40 98.8 88 25 129/75 100 Mechanical Ventilator 70 07/17/17 00:40 100 07/17/17 00:32 113 26 70 07/17/17 00:20 99.0 94 26 142/68 100 Mechanical Ventilator 70 07/17/17 00:20 99.0 94 26 142/68 100 Mechanical Ventilator 70 07/17/17 00:20 26 07/17/17 00:20 26 07/17/17 00:20 26 07/17/17 00:10 89 24 125/69 100 Mechanical Ventilator 70 07/17/17 00:10 24 07/17/17 00:10 24 07/17/17 00:10 24 07/16/17 23:55 22 07/16/17 23:55 22 07/16/17 23:55 22 07/16/17 23:55 85 22 105/65 100 Mechanical Ventilator 70 07/16/17 23:40 90 20 109/66 100 Mechanical Ventilator 70 07/16/17 23:40 20 07/16/17 23:40 20 07/16/17 23:40 20 07/16/17 23:25 20 07/16/17 23:25 20 07/16/17 23:25 20 07/16/17 23:25 86 20 115/67 100 Mechanical Ventilator 70 07/16/17 23:10 22 07/16/17 23:10 94 22 125/64 97 Mechanical Ventilator 70 07/16/17 23:00 70 07/16/17 22:51 109 24 70 07/16/17 22:16 80 07/16/17 22:15 142/68 07/16/17 22:00 80 07/16/17 21:05 98.9 89 21 140/71 97 Mechanical Ventilator 100 07/16/17 21:04 87 14 100 07/16/17 20:50 100 07/16/17 19:20 98 35 110/65 96 Bi-pap 100 07/16/17 19:02 110 38 Bi-pap 100 07/16/17 19:00 100 07/16/17 18:59 110 38 97 Facial 100 07/16/17 18:41 108 28 Bi-pap 100 07/16/17 18:41 99.1 108 28 104/60 92 Mechanical Ventilator 07/16/17 18:31 98.2 109 26 146/63 81 Non-Rebreather Intake and Output 07/17/17 07/18/17 19:00 07:00 Intake Total 348 ml Output Total 110 ml Balance 238 ml IV Total 348 ml Output Urine Total 110 ml Laboratory Tests Test 07/16/17 18:43 07/16/17 18:50 07/16/17 19:28 07/16/17 19:40 Arterial Blood pH 7.200 (7.350-7.450) 7.309 (7.350-7.450) Arterial Blood Partial Pressure CO2 59.0 mmHg (35.0-45.0) *H 51.3 mmHg (35.0-45.0) H Arterial Blood Partial Pressure O2 56.4 mmHg (75.0-100.0) L 116.1 mmHg (75.0-100.0) H Arterial Blood HCO3 22.5 mmol/L (22.0-26.0) 25.2 mmol/L (22.0-26.0) Arterial Blood Oxygen Saturation 78.9 % (92.0-98.0) L 97.3 % (92.0-98.0) Arterial Blood Base Excess -5.7 -1.2 Jamie Test Positive Positive White Blood Count 15.7 K/UL (4.8-10.8) H Red Blood Count 3.44 M/UL (4.20-5.40) L Hemoglobin 9.1 G/DL (12.0-16.0) L Hematocrit 31.2 % (37.0-47.0) L Mean Corpuscular Volume 91 FL (80-99) Mean Corpuscular Hemoglobin 26.6 PG (27.0-31.0) L Mean Corpuscular Hemoglobin Concent 29.3 G/DL (32.0-36.0) L Red Cell Distribution Width 21.2 % (11.6-14.8) H Platelet Count 330 K/UL (150-450) Mean Platelet Volume 9.8 FL (6.5-10.1) Neutrophils (%) (Auto) 72.0 % (45.0-75.0) Lymphocytes (%) (Auto) 25.2 % (20.0-45.0) Monocytes (%) (Auto) 2.3 % (1.0-10.0) Eosinophils (%) (Auto) 0.1 % (0.0-3.0) Basophils (%) (Auto) 0.5 % (0.0-2.0) Sodium Level 133 MMOL/L (136-145) L Potassium Level 5.3 MMOL/L (3.5-5.1) H Chloride Level 98 MMOL/L (98-107) Carbon Dioxide Level 22 MMOL/L (21-32) Anion Gap 13 mmol/L (5-15) Blood Urea Nitrogen 24 mg/dL (7-18) H Creatinine 0.9 MG/DL (0.55-1.30) Estimat Glomerular Filtration Rate mL/min (>60) Glucose Level 278 MG/DL (74-106) H Lactic Acid Level 9.10 mmol/L (0.66-2.22) H Calcium Level 8.2 MG/DL (8.5-10.1) L Total Bilirubin 0.2 MG/DL (0.2-1.0) Aspartate Amino Transf (AST/SGOT) 138 U/L (15-37) H Alanine Aminotransferase (ALT/SGPT) 26 U/L (12-78) Alkaline Phosphatase 69 U/L (46-116) Total Creatine Kinase 267 U/L (26-308) Creatine Kinase MB 14.9 NG/ML (0.0-3.6) H Creatine Kinase MB Relative Index 5.5 Troponin I 10.296 ng/mL (0.000-0.056) Pro-B-Type Natriuretic Peptide > 70124 pg/mL (0-125) H Total Protein 6.4 G/DL (6.4-8.2) Albumin 2.0 G/DL (3.4-5.0) L Globulin 4.4 g/dL Albumin/Globulin Ratio 0.5 (1.0-2.7) L Urine Color Yellow Urine Appearance Slightly cloudy Urine pH 7 (4.5-8.0) Urine Specific [place] 1.010 (1.005-1.035) Urine Protein 2+ (NEGATIVE) H Urine Glucose (UA) Negative (NEGATIVE) Urine Ketones Negative (NEGATIVE) Urine Occult Blood 4+ (NEGATIVE) H Urine Nitrite Negative (NEGATIVE) Urine Bilirubin Negative (NEGATIVE) Urine Urobilinogen 1 MG/DL (0.0-1.0) H Urine Leukocyte Esterase 3+ (NEGATIVE) H Urine RBC Tntc /HPF (0 - 2) H Urine WBC Tntc /HPF (0 - 2) H Urine Squamous Epithelial Cells Few /LPF (NONE/OCC) Urine Bacteria Many /HPF (NONE) H Test 07/16/17 21:45 07/16/17 22:03 07/17/17 05:20 07/17/17 09:36 Prothrombin Time 11.8 SEC (9.30-11.50) H Prothromb Time International Ratio 1.1 (0.9-1.1) Activated Partial Thromboplast Time 31 SEC (23-33) 67 SEC (23-33) H Lactic Acid Level 2.60 mmol/L (0.66-2.22) H 1.30 mmol/L (0.66-2.22) Triglycerides Level 43 MG/DL (30-150) Arterial Blood pH 7.323 (7.350-7.450) 7.470 (7.350-7.450) Arterial Blood Partial Pressure CO2 54.1 mmHg (35.0-45.0) H 33.1 mmHg (35.0-45.0) L Arterial Blood Partial Pressure O2 236.4 mmHg (75.0-100.0) H 207.0 mmHg (75.0-100.0) H Arterial Blood HCO3 27.4 mmol/L (22.0-26.0) H 23.7 mmol/L (22.0-26.0) Arterial Blood Oxygen Saturation 98.8 % (92.0-98.0) H 98.6 % (92.0-98.0) H Arterial Blood Base Excess 1.0 0.2 Jamie Test Positive Positive White Blood Count 18.3 K/UL (4.8-10.8) H Red Blood Count 2.63 M/UL (4.20-5.40) L Hemoglobin 7.3 G/DL (12.0-16.0) L Hematocrit 22.8 % (37.0-47.0) L Mean Corpuscular Volume 87 FL (80-99) Mean Corpuscular Hemoglobin 27.7 PG (27.0-31.0) Mean Corpuscular Hemoglobin Concent 32.0 G/DL (32.0-36.0) Red Cell Distribution Width 21.0 % (11.6-14.8) H Platelet Count 229 K/UL (150-450) Mean Platelet Volume 10.3 FL (6.5-10.1) H Neutrophils (%) (Auto) % (45.0-75.0) Lymphocytes (%) (Auto) % (20.0-45.0) Monocytes (%) (Auto) % (1.0-10.0) Eosinophils (%) (Auto) % (0.0-3.0) Basophils (%) (Auto) % (0.0-2.0) Differential Total Cells Counted 100 Neutrophils % (Manual) 83 % (45-75) H Lymphocytes % (Manual) 3 % (20-45) L Monocytes % (Manual) 4 % (1-10) Eosinophils % (Manual) 0 % (0-3) Basophils % (Manual) 0 % (0-2) Band Neutrophils 10 % (0-8) H Platelet Estimate Adequate Platelet Morphology Normal Hypochromasia 3+ Anisocytosis 3+ Sodium Level 135 MMOL/L (136-145) L Potassium Level 4.5 MMOL/L (3.5-5.1) Chloride Level 105 MMOL/L (98-107) Carbon Dioxide Level 24 MMOL/L (21-32) Anion Gap 6 mmol/L (5-15) Blood Urea Nitrogen 25 mg/dL (7-18) H Creatinine 0.7 MG/DL (0.55-1.30) Estimat Glomerular Filtration Rate mL/min (>60) Glucose Level 142 MG/DL (74-106) #H Calcium Level 7.0 MG/DL (8.5-10.1) L Total Bilirubin 0.2 MG/DL (0.2-1.0) Direct Bilirubin < 0.1 MG/DL (0.0-0.3) Aspartate Amino Transf (AST/SGOT) 111 U/L (15-37) H Alanine Aminotransferase (ALT/SGPT) 35 U/L (12-78) Alkaline Phosphatase 46 U/L (46-116) Troponin I Pending Total Protein 5.0 G/DL (6.4-8.2) L Albumin 1.6 G/DL (3.4-5.0) L Globulin 3.4 g/dL Albumin/Globulin Ratio 0.5 (1.0-2.7) L Test 07/17/17 11:00 07/17/17 12:50 Urine Legionella Antigen Pending Troponin I Pending Random Amikacin Level Pending Microbiology Date/Time Source Procedure Growth Status 07/17/17 01:20 Wound Gram Stain - Final Resulted 07/17/17 01:20 Wound Wound Culture Pending Resulted Height (Feet): 5 Height (Inches): 2.00 Weight (Pounds): 105 Medications Current Medications Medications (Trade) Dose Ordered Sig/Analia Route PRN Reason Start Time Stop Time Status Last Admin Dose Admin Acetaminophen (Tylenol) 650 mg Q4H PRN ORAL fever 07/16/17 22:15 08/15/17 22:14 07/17/17 08:06 Albuterol/ Ipratropium (Albuterol/ Ipratropium) 3 ml EVERY 4 HOURS PRN HHN Shortness of Breath 07/16/17 22:15 07/21/17 22:14 Amikacin Protocol (Amikacin pharmacy to dose) 1 ea DAILY PRN MISC PER RX PROTOCOL 07/17/17 12:00 08/16/17 11:59 Amikacin Sulfate 750 mg/Sodium Chloride 113 ml @ 113 mls/hr Q48H IV 07/17/17 01:00 07/24/17 00:59 07/17/17 01:40 Aspirin (Ecotrin) 81 mg DAILY ORAL 07/18/17 09:00 08/17/17 08:59 UNV Atorvastatin Calcium (Lipitor) 10 mg BEDTIME ORAL 07/17/17 21:00 08/16/17 20:59 UNV Azithromycin (Zithromax) 250 mg DAILY ORAL 07/17/17 18:00 07/24/17 17:59 Heparin Sodium/ Dextrose 500 ml @ 11.975 mls/ hr adjust per protocol IV 07/16/17 23:00 08/15/17 22:59 07/16/17 23:41 Lorazepam (Ativan 2mg/ml 1ml) 2 mg EVERY 2 HOURS PRN IV For Anxiety 07/16/17 22:15 07/23/17 22:14 07/17/17 01:44 Meropenem 1 gm/ Sodium Chloride 55 ml @ 110 mls/hr Q12HR IVPB 07/17/17 13:00 07/22/17 12:59 Metoprolol Tartrate (Lopressor) 12.5 mg Q12HR ORAL 07/17/17 21:00 08/16/17 20:59 UNV Morphine Sulfate (Morphine Sulfate) 4 mg EVERY 4 HOURS PRN IVP Severe Pain (Pain Scale 7-10) 07/16/17 22:15 07/23/17 22:14 Norepinephrine Bitartrate 4 mg/ Dextrose 254 ml @ 0 mls/hr Q24H IV 07/16/17 22:15 08/15/17 22:14 Ondansetron HCl (Zofran) 4 mg Q6H PRN IVP Nausea & Vomiting 07/16/17 22:15 08/15/17 22:14 Pantoprazole (Protonix) 40 mg DAILY IV 07/17/17 09:00 08/16/17 08:59 07/17/17 08:06 Polyethylene Glycol (Miralax) 17 gm DAILYPRN PRN ORAL Constipation 07/16/17 22:15 08/15/17 22:14 Sodium Chloride 1,000 ml @ 100 mls/hr Q10H IVLG 07/16/17 22:07 08/15/17 22:06 07/17/17 08:07 Vancomycin HCl (Vanco rx to dose) 1 ea DAILY PRN MISC per protocol 07/17/17 00:45 08/16/17 00:44 Vancomycin HCl 500 mg/Dextrose 110 ml @ 110 mls/hr Q24H IVPB 07/17/17 21:00 07/22/17 20:59 Assessment/Plan Problem List: (1) Acute respiratory failure with hypoxia and hypercapnia ICD Codes: J96.01 - Acute respiratory failure with hypoxia; J96.02 - Acute respiratory failure with hypercapnia SNOMED: 84807392, 90188052, 287741925 (2) Severe sepsis ICD Codes: A41.9 - Sepsis, unspecified organism; R65.20 - Severe sepsis without septic shock SNOMED: 04899901 (3) HCAP vs Aspiration pneumonia (4) UTI (urinary tract infection) ICD Codes: N39.0 - Urinary tract infection, site not specified SNOMED: 81121580 (5) Lactic acid acidosis ICD Codes: E87.2 - Acidosis SNOMED: 47348469 (6) NSTEMI (non-ST elevated myocardial infarction) ICD Codes: I21.4 - Non-ST elevation (NSTEMI) myocardial infarction SNOMED: 966580414 (7) Acute on chronic anemia (8) Hyponatremia ICD Codes: E87.1 - Hypo-osmolality and hyponatremia SNOMED: 26263261 (9) paroxsymal atrial fibrillation (10) CAD s/p PCI (11) Ischemic cardiomyopathy ICD Codes: I25.5 - Ischemic cardiomyopathy SNOMED: 115765075 (12) CVA (cerebral vascular accident) ICD Codes: I63.9 - Cerebral infarction, unspecified SNOMED: 332559664 (13) Alzheimer's dementia ICD Codes: G30.9 - Alzheimer's disease, unspecified SNOMED: 80494843 Status: not improved Assessment/Plan Admit to ICU Pulm, cardiology, ID, GI consulted, appreciate rec's Cont on vent and wean as tolerated Daily SBTs, sedation holiday Cont empiric vanco, zosyn, azithro, amikacin per ID (07/16-) F/u cultures Trend CBC, BMP, lacatte Trend trop/EKG F/u TTE Cont heparin gtt for now per cardiology for NSTEMI Transfuse 1U pRBC today. No active bleeding noted, but low threshold to stop heparin gtt if hgb cont to drop Keep NPO for now Supportive care DVT Prophylaxis: SCD, heparin gtt Code Status: Full per discussion w/ pt's DPOA/daughter Hospital Classification Declaration: Based on this initial evaluation, and depending on the patient's clinical course, I anticipate that this patient will require hospitalization for 2-3 days for acute respiratory faiure, severe sepsis and close respiratory/hemodynamic monitoring. Disposition: Once the patient is stable to leave the hospital, I anticipate the patient will likely be discharged to the following environment: back to SNF I spent 70 minutes on this patient's case, and 39 minutes were dedicated to counseling and/or care coordination. Discussed with patient/family, nursing staff, SW/CM, ID, renal, pulm, cardiology regarding clinical status, treatment course, and disposition planning. Time of note may not reflect time of encounter. At the time of my involvement, the patient's condition was critical with high potential for and/or physiologic deterioration secondary to [] as delineated in the note above. On the above date of service, I spent a total of 45 minutes in the ICU evaluating, managing, and providing critical care services to this patient, including time spent documenting these activities, counseling patient/family, and coordinating care. Critical care services performed include: Telemetry Review Hemodynamic measurement interpretation Laboratory data review and interpretation Ventilator setting review, management, and adjustment Discussion of care plans with patient, family, and/or surrogate decision makers Discussion of patient's care with primary medical team, surgical team, and/or consulting service Decision to obtain further radiologic evaluation, after consideration of risk/ benefit ratio Review of most recent microbiology results with assessment and modification of antimicrobial coverage Discussion of patient's code status and further advancement towards the ultimate goals of care Plan outlined above discussed with patient/family, [employer] TECHNICIAN, ICU team, and involved physicians/consultants. D/w pt's daughter extensively re plan of care, GOC Time of note may not reflect time of encounter. Kilo López M.D. Jul 17, 2017 13:12
[2017-07-17] MEDS: Aspirin EC 81mg tab ORAL SCH (13:48)
[2017-07-17] MEDS: Meropenem 1 GM in NS 55 ML IVPB SCH ×2 (13:48→20:57)
--- NOTE | 2017-07-17 15:47 | Diagnostic Imaging Report ---
Indication: Shortness of breath Technique: One view of the chest Comparison: 07/16/2017 Findings: Interim improvement and bilateral interstitial and airspace congestion, with some disease persisting. Bilateral pleural effusions persist, may also be slightly improved. Normal heart size. Coronary artery stent is noted. Surgical clips are seen in the epigastric region. Stable satisfactory position of endotracheal tube. Old healed rib fracture deformities are again noted bilaterally Impression: Somewhat improved bilateral interstitial and airspace congestion, over one day Improved but persistent bilateral pleural effusions
--- NOTE | 2017-07-17 15:59 | GI Initial Consult Note ---
[facility] Colon N.P. 07/17/17 1559: History of Present Illness General Date patient seen: Jul 17, 2017 Time patient seen: 16:04 Reason for Hospitalization: Dyspnea/Respdistress Referring physician: JESSIE CRUZ Reason for Consultation: ANEMIA Present Illness HPI 87-year-old female presents to ED for respiratory distress. Per EMS patient developed shortness of breath at custodial today. O2 sats were in the 80s. Placed on BiPAP. Patient has dementia and is at her baseline. States that her O2 saturations have improved. Patient is unable to provide any additional history at this time. No other aggravating or leading factors. No other associated symptoms GI consulted for anemia. HPI as noted above. ROS limited, pt seen in ICU, asleep NAD with no active s/sx of N/V/D. She presents today with anemia 2g Hgb drop with no active source of bleeding. In addition the patient presents with transaminitis, hypoalbuminemia and elevated troponin levels. Unknown history of endoscopies and colonoscopies. Home Meds Reported Medications Magnesium Hydroxide* (MILK OF MAGNESIA*) 400 Mg/5 Ml Oral.susp, 30 ML GT DAILY Y for Constipation 07/16/17 Sucralfate (CARAFATE) 1 Gm/10 Ml Oral.susp, 1 GM GT THREE TIMES A DAY 07/16/17 Omeprazole (OMEPRAZOLE) 40 Mg Capsule.dr, 40 MG GT BID 07/16/17 Polyethylene Glycol 3350* (MIRALAX*) 17 Gm Powd.pack, 17 GM GT DAILY 07/16/17 Ipratropium [place] 0.5MG/2.5ML (IPRATROPIUM BROMIDE 0.5MG/2.5ML) 0.2 Mg/1 Ml Solution, 0.5 MG HHN Q6H Y for Shortness of Breath 07/16/17 Calcitonin,[place],Synthetic (CALCITONIN-SALMON) 3.7 Ml [place].pump, 200 UNITS NS DAILY 07/16/17 Gabapentin* (GABAPENTIN*) 100 Mg Capsule, 100 MG GT BEDTIME 07/16/17 Donepezil Hcl* (ARICEPT*) 10 Mg Tablet, 10 MG GT BEDTIME 07/16/17 Loratadine (LORATADINE) 10 Mg Tablet, 10 MG GT DAILY Y for ALLERGY 07/16/17 Vitamin B Complex (VITAMIN B COMPLEX) 1 Each Tablet, 1 EACH GT DAILY 07/16/17 Hydrocodone Bit/Acetaminophen 5-325* (NORCO 5-325 TABLET*) 1 Each Tablet, 1 TAB GT Q4H Y for For Pain 07/16/17 Acetaminophen* (ACETAMINOPHEN 325MG TABLET*) 325 Mg Tablet, 650 MG GT Q6H Y for Mild Pain/Temp > 100.5 07/16/17 Multivitamins* (MULTIVITAMINS*) 1 Each Tablet, 1 TAB GT DAILY 07/16/17 Metoclopramide Hcl* (REGLAN*) 10 Mg Tablet, 10 MG GT BID for 14 Days 07/16/17 Ferrous Sulfate (Ferrous Sulfate) 220 Mg/5 Ml Elixir, 330 MG GT THREE TIMES A DAY 07/16/17 Folic Acid* (FOLIC ACID*) 1 Mg Tablet, 1 MG GT DAILY 07/16/17 Docusate Sodium (DOCUSATE SODIUM) 100 Mg Tablet, 100 MG GT BID 07/16/17 Melatonin/Pyridoxine HCl (B6) (Melatonin 3 mg Tablet) 1 Each Tablet, 2 EACH GT BEDTIME Y for SLEEP AID 07/16/17 Lactobacillus Acidophilus (ACIDOPHILUS) 1 Each Tablet, 1 EACH GT DAILY 07/16/17 Calcium Carbonate (CALCIUM) 500 Mg Tablet, 500 MG GT DAILY 07/16/17 Apixaban (ELIQUIS) 2.5 Mg Tablet, 2.5 MG GT BID 07/16/17 Ranitidine Hcl* (ZANTAC*) 150 Mg Tablet, 300 MG GT BEDTIME 07/16/17 Pravastatin Sod (PRAVASTATIN SOD) 80 Mg Tablet, 80 MG GT BEDTIME 07/16/17 Clopidogrel* (CLOPIDOGREL*) 75 Mg Tablet, 75 MG GT DAILY 07/16/17 Bethanechol* (BETHANECHOL*) 10 Mg Tablet, 10 MG GT THREE TIMES A DAY 07/16/17 Amlodipine Besylate* (AMLODIPINE BESYLATE*) 10 Mg Tablet, 10 MG GT DAILY 07/16/17 Metoprolol Tartrate* (METOPROLOL TARTRATE*) 25 Mg Tablet, 25 MG GT BID 07/16/17 Lisinopril (LISINOPRIL*) 5 Mg Tablet, 5 MG GT DAILY 07/16/17 Discontinued Reported Medications Gluc/Pradeep-MSM#1/C/Connor/Adrian/Bor (Osteo Bi-Flex Caplet) 1 Each Tablet, 1 EACH PO, TAB 10/10/15 Lidocaine (Lidoderm) 700 Mg Adh..patch, 1 PATCH TOPIC, #7 PATCH 0 Refills Patch(es) may remain in place for up to 12 hours in any 24-hour period. 10/10/15 Benazepril Hcl* (BENAZEPRIL HCL*) 20 Mg Tablet, 20 MG ORAL EVERY 12 HOURS, TAB 10/10/15 Benzonatate* (BENZONATATE*) 100 Mg Capsule, 100 MG ORAL DAILY, PERLE 10/10/15 Discontinued Scripts Trimethoprim/Sulfamethoxazole (Bactrim Ds Tablet) 1 Ea Tab, 1 EA ORAL TWICE A DAY for 5 Days, TAB Prov:Alessandro Savage M.D. 10/10/15 Med list reviewed/reconciled: Yes Allergies: Coded Allergies: No Known Allergies (Unverified , 05/25/13) Patient History Limited by: medical condition History Provided By: Medical Record PMH Narrative Past Medical History: HTN Past Surgical History: none Pertinent Family History: none Social History: Denies: smoking, alcohol use, drug use Now: No Immunizations: UTD Reviewed Nursing Documentation: PMH: Agreed, PSxH: Agreed Nursing Documentation-PMH Past Medical History: No History, Except For Hx Cardiac Problems: Yes Hx Hypertension: Yes Hx Cancer: No Hx Gastrointestinal Problems: Yes Hx Neurological Problems: No Review of Systems All Other Systems: limited Physical Exam Vital Signs Date Time Temp Pulse Resp B/P (MAP) Pulse Ox O2 Delivery O2 Flow Rate FiO2 07/16/17 18:31 98.2 109 26 146/63 81 Non-Rebreather 07/16/17 18:41 100 Sp02 EP Interpretation: reviewed Labs Laboratory Tests Test 07/16/17 18:43 07/16/17 18:50 07/16/17 19:28 07/16/17 19:40 Arterial Blood pH 7.200 (7.350-7.450) 7.309 (7.350-7.450) Arterial Blood Partial Pressure CO2 59.0 mmHg (35.0-45.0) *H 51.3 mmHg (35.0-45.0) H Arterial Blood Partial Pressure O2 56.4 mmHg (75.0-100.0) L 116.1 mmHg (75.0-100.0) H Arterial Blood HCO3 22.5 mmol/L (22.0-26.0) 25.2 mmol/L (22.0-26.0) Arterial Blood Oxygen Saturation 78.9 % (92.0-98.0) L 97.3 % (92.0-98.0) Arterial Blood Base Excess -5.7 -1.2 Jamie Test Positive Positive White Blood Count 15.7 K/UL (4.8-10.8) H Red Blood Count 3.44 M/UL (4.20-5.40) L Hemoglobin 9.1 G/DL (12.0-16.0) L Hematocrit 31.2 % (37.0-47.0) L Mean Corpuscular Volume 91 FL (80-99) Mean Corpuscular Hemoglobin 26.6 PG (27.0-31.0) L Mean Corpuscular Hemoglobin Concent 29.3 G/DL (32.0-36.0) L Red Cell Distribution Width 21.2 % (11.6-14.8) H Platelet Count 330 K/UL (150-450) Mean Platelet Volume 9.8 FL (6.5-10.1) Neutrophils (%) (Auto) 72.0 % (45.0-75.0) Lymphocytes (%) (Auto) 25.2 % (20.0-45.0) Monocytes (%) (Auto) 2.3 % (1.0-10.0) Eosinophils (%) (Auto) 0.1 % (0.0-3.0) Basophils (%) (Auto) 0.5 % (0.0-2.0) Sodium Level 133 MMOL/L (136-145) L Potassium Level 5.3 MMOL/L (3.5-5.1) H Chloride Level 98 MMOL/L (98-107) Carbon Dioxide Level 22 MMOL/L (21-32) Anion Gap 13 mmol/L (5-15) Blood Urea Nitrogen 24 mg/dL (7-18) H Creatinine 0.9 MG/DL (0.55-1.30) Estimat Glomerular Filtration Rate mL/min (>60) Glucose Level 278 MG/DL (74-106) H Lactic Acid Level 9.10 mmol/L (0.66-2.22) H Calcium Level 8.2 MG/DL (8.5-10.1) L Total Bilirubin 0.2 MG/DL (0.2-1.0) Aspartate Amino Transf (AST/SGOT) 138 U/L (15-37) H Alanine Aminotransferase (ALT/SGPT) 26 U/L (12-78) Alkaline Phosphatase 69 U/L (46-116) Total Creatine Kinase 267 U/L (26-308) Creatine Kinase MB 14.9 NG/ML (0.0-3.6) H Creatine Kinase MB Relative Index 5.5 Troponin I 10.296 ng/mL (0.000-0.056) Pro-B-Type Natriuretic Peptide > 61810 pg/mL (0-125) H Total Protein 6.4 G/DL (6.4-8.2) Albumin 2.0 G/DL (3.4-5.0) L Globulin 4.4 g/dL Albumin/Globulin Ratio 0.5 (1.0-2.7) L Urine Color Yellow Urine Appearance Slightly cloudy Urine pH 7 (4.5-8.0) Urine Specific [place] 1.010 (1.005-1.035) Urine Protein 2+ (NEGATIVE) H Urine Glucose (UA) Negative (NEGATIVE) Urine Ketones Negative (NEGATIVE) Urine Occult Blood 4+ (NEGATIVE) H Urine Nitrite Negative (NEGATIVE) Urine Bilirubin Negative (NEGATIVE) Urine Urobilinogen 1 MG/DL (0.0-1.0) H Urine Leukocyte Esterase 3+ (NEGATIVE) H Urine RBC Tntc /HPF (0 - 2) H Urine WBC Tntc /HPF (0 - 2) H Urine Squamous Epithelial Cells Few /LPF (NONE/OCC) Urine Bacteria Many /HPF (NONE) H Test 07/16/17 21:45 07/16/17 22:03 07/17/17 05:20 07/17/17 09:36 Prothrombin Time 11.8 SEC (9.30-11.50) H Prothromb Time International Ratio 1.1 (0.9-1.1) Activated Partial Thromboplast Time 31 SEC (23-33) 67 SEC (23-33) H Lactic Acid Level 2.60 mmol/L (0.66-2.22) H 1.30 mmol/L (0.66-2.22) Triglycerides Level 43 MG/DL (30-150) Arterial Blood pH 7.323 (7.350-7.450) 7.470 (7.350-7.450) Arterial Blood Partial Pressure CO2 54.1 mmHg (35.0-45.0) H 33.1 mmHg (35.0-45.0) L Arterial Blood Partial Pressure O2 236.4 mmHg (75.0-100.0) H 207.0 mmHg (75.0-100.0) H Arterial Blood HCO3 27.4 mmol/L (22.0-26.0) H 23.7 mmol/L (22.0-26.0) Arterial Blood Oxygen Saturation 98.8 % (92.0-98.0) H 98.6 % (92.0-98.0) H Arterial Blood Base Excess 1.0 0.2 Jamie Test Positive Positive White Blood Count 18.3 K/UL (4.8-10.8) H Red Blood Count 2.63 M/UL (4.20-5.40) L Hemoglobin 7.3 G/DL (12.0-16.0) L Hematocrit 22.8 % (37.0-47.0) L Mean Corpuscular Volume 87 FL (80-99) Mean Corpuscular Hemoglobin 27.7 PG (27.0-31.0) Mean Corpuscular Hemoglobin Concent 32.0 G/DL (32.0-36.0) Red Cell Distribution Width 21.0 % (11.6-14.8) H Platelet Count 229 K/UL (150-450) Mean Platelet Volume 10.3 FL (6.5-10.1) H Neutrophils (%) (Auto) % (45.0-75.0) Lymphocytes (%) (Auto) % (20.0-45.0) Monocytes (%) (Auto) % (1.0-10.0) Eosinophils (%) (Auto) % (0.0-3.0) Basophils (%) (Auto) % (0.0-2.0) Differential Total Cells Counted 100 Neutrophils % (Manual) 83 % (45-75) H Lymphocytes % (Manual) 3 % (20-45) L Monocytes % (Manual) 4 % (1-10) Eosinophils % (Manual) 0 % (0-3) Basophils % (Manual) 0 % (0-2) Band Neutrophils 10 % (0-8) H Platelet Estimate Adequate Platelet Morphology Normal Hypochromasia 3+ Anisocytosis 3+ Sodium Level 135 MMOL/L (136-145) L Potassium Level 4.5 MMOL/L (3.5-5.1) Chloride Level 105 MMOL/L (98-107) Carbon Dioxide Level 24 MMOL/L (21-32) Anion Gap 6 mmol/L (5-15) Blood Urea Nitrogen 25 mg/dL (7-18) H Creatinine 0.7 MG/DL (0.55-1.30) Estimat Glomerular Filtration Rate mL/min (>60) Glucose Level 142 MG/DL (74-106) #H Calcium Level 7.0 MG/DL (8.5-10.1) L Total Bilirubin 0.2 MG/DL (0.2-1.0) Direct Bilirubin < 0.1 MG/DL (0.0-0.3) Aspartate Amino Transf (AST/SGOT) 111 U/L (15-37) H Alanine Aminotransferase (ALT/SGPT) 35 U/L (12-78) Alkaline Phosphatase 46 U/L (46-116) Troponin I 11.873 ng/mL (0.000-0.056) Total Protein 5.0 G/DL (6.4-8.2) L Albumin 1.6 G/DL (3.4-5.0) L Globulin 3.4 g/dL Albumin/Globulin Ratio 0.5 (1.0-2.7) L Test 07/17/17 11:00 07/17/17 12:50 Urine Legionella Antigen Pending Troponin I 13.280 ng/mL (0.000-0.056) Random Amikacin Level Pending General Appearance: no apparent distress Neck: supple, other - mech vent Respiratory: no respiratory distress Cardiovascular: normal rate Gastrointestinal: normal inspection, non tender, soft, gjt Rectal: deferred Skin: normal color, no rash, warm/dry Lymphatic: normal inspection, no adenopathy Current Medications Current Medications Medications (Trade) Dose Ordered Sig/Analia Route PRN Reason Start Time Stop Time Status Last Admin Dose Admin Acetaminophen (Tylenol) 650 mg Q4H PRN ORAL fever 07/16/17 22:15 08/15/17 22:14 07/17/17 08:06 Albuterol/ Ipratropium (Albuterol/ Ipratropium) 3 ml EVERY 4 HOURS PRN HHN Shortness of Breath 07/16/17 22:15 07/21/17 22:14 Amikacin Protocol (Amikacin pharmacy to dose) 1 ea DAILY PRN MISC PER RX PROTOCOL 07/17/17 12:00 08/16/17 11:59 Amikacin Sulfate 750 mg/Sodium Chloride 113 ml @ 113 mls/hr Q48H IV 07/17/17 01:00 07/24/17 00:59 07/17/17 01:40 Aspirin (Ecotrin) 81 mg DAILY ORAL 07/17/17 14:00 08/16/17 13:59 07/17/17 13:48 Atorvastatin Calcium (Lipitor) 10 mg BEDTIME ORAL 07/17/17 21:00 08/16/17 20:59 Azithromycin (Zithromax) 250 mg DAILY ORAL 07/17/17 18:00 07/24/17 17:59 Heparin Sodium/ Dextrose 500 ml @ 11.433 mls/ hr adjust per protocol IV 07/17/17 14:40 08/16/17 14:39 Lorazepam (Ativan 2mg/ml 1ml) 2 mg EVERY 2 HOURS PRN IV For Anxiety 07/16/17 22:15 07/23/17 22:14 07/17/17 01:44 Meropenem 1 gm/ Sodium Chloride 55 ml @ 110 mls/hr Q12HR IVPB 07/17/17 13:00 07/22/17 12:59 07/17/17 13:48 Metoprolol Tartrate (Lopressor) 12.5 mg Q12HR ORAL 07/17/17 21:00 08/16/17 20:59 Morphine Sulfate (Morphine Sulfate) 4 mg EVERY 4 HOURS PRN IVP Severe Pain (Pain Scale 7-10) 07/16/17 22:15 07/23/17 22:14 Norepinephrine Bitartrate 4 mg/ Dextrose 254 ml @ 0 mls/hr Q24H IV 07/16/17 22:15 08/15/17 22:14 Ondansetron HCl (Zofran) 4 mg Q6H PRN IVP Nausea & Vomiting 07/16/17 22:15 08/15/17 22:14 Pantoprazole (Protonix) 40 mg DAILY IV 07/17/17 09:00 08/16/17 08:59 12/15/17 08:06 Polyethylene Glycol (Miralax) 17 gm DAILYPRN PRN ORAL Constipation 07/16/17 22:15 08/15/17 22:14 Sodium Chloride 1,000 ml @ 100 mls/hr Q10H IVLG 07/16/17 22:07 08/15/17 22:06 07/17/17 08:07 Vancomycin HCl (Vanco rx to dose) 1 ea DAILY PRN MISC per protocol 07/17/17 00:45 08/16/17 00:44 Vancomycin HCl 500 mg/Dextrose 110 ml @ 110 mls/hr Q24H IVPB 07/17/17 21:00 07/22/17 20:59 GI: Plan Problems: (1) Anemia (2) Transaminitis (3) Protein-calorie malnutrition, severe (4) Dehydration (5) Septic shock (6) Failure to thrive (7) Weakness Plan defer GI procedures at this time given elevated troponin >> will require cardiac clearance prior any procedure - patient is also on Eliquis which must dc 48-72 hours min prior any GI procedures Gastric Lavage 500 cc r/o UGIB >> POSITIVE, will require EGD when stable. CBC q8 hours >> transfuse to maintain Hgb > 8.0 GT feedings when hemodynamically stable ppi gtt fu labs Discussed with Dr. Juarez. Thank you for this patient referral, we will follow. MITUL JUAREZ 07/20/17 0856: History of Present Illness General Reason for Hospitalization: Dyspnea/Respdistress Present Illness Home Meds Reported Medications Magnesium Hydroxide* (MILK OF MAGNESIA*) 400 Mg/5 Ml Oral.susp, 30 ML GT DAILY Y for Constipation 07/16/17 Sucralfate (CARAFATE) 1 Gm/10 Ml Oral.susp, 1 GM GT THREE TIMES A DAY 07/16/17 Omeprazole (OMEPRAZOLE) 40 Mg Capsule.dr, 40 MG GT BID 07/16/17 Polyethylene Glycol 3350* (MIRALAX*) 17 Gm Powd.pack, 17 GM GT DAILY 07/16/17 Ipratropium [place] 0.5MG/2.5ML (IPRATROPIUM BROMIDE 0.5MG/2.5ML) 0.2 Mg/1 Ml Solution, 0.5 MG HHN Q6H Y for Shortness of Breath 07/16/17 Calcitonin,[place],Synthetic (CALCITONIN-SALMON) 3.7 Ml [place].pump, 200 UNITS NS DAILY 07/16/17 Gabapentin* (GABAPENTIN*) 100 Mg Capsule, 100 MG GT BEDTIME 07/16/17 Donepezil Hcl* (ARICEPT*) 10 Mg Tablet, 10 MG GT BEDTIME 07/16/17 Loratadine (LORATADINE) 10 Mg Tablet, 10 MG GT DAILY Y for ALLERGY 07/16/17 Vitamin B Complex (VITAMIN B COMPLEX) 1 Each Tablet, 1 EACH GT DAILY 07/16/17 Hydrocodone Bit/Acetaminophen 5-325* (NORCO 5-325 TABLET*) 1 Each Tablet, 1 TAB GT Q4H Y for For Pain 07/16/17 Acetaminophen* (ACETAMINOPHEN 325MG TABLET*) 325 Mg Tablet, 650 MG GT Q6H Y for Mild Pain/Temp > 100.5 07/16/17 Multivitamins* (MULTIVITAMINS*) 1 Each Tablet, 1 TAB GT DAILY 07/16/17 Metoclopramide Hcl* (REGLAN*) 10 Mg Tablet, 10 MG GT BID for 14 Days 07/16/17 Ferrous Sulfate (Ferrous Sulfate) 220 Mg/5 Ml Elixir, 330 MG GT THREE TIMES A DAY 07/16/17 Folic Acid* (FOLIC ACID*) 1 Mg Tablet, 1 MG GT DAILY 07/16/17 Docusate Sodium (DOCUSATE SODIUM) 100 Mg Tablet, 100 MG GT BID 07/16/17 Melatonin/Pyridoxine HCl (B6) (Melatonin 3 mg Tablet) 1 Each Tablet, 2 EACH GT BEDTIME Y for SLEEP AID 07/16/17 Lactobacillus Acidophilus (ACIDOPHILUS) 1 Each Tablet, 1 EACH GT DAILY 07/16/17 Calcium Carbonate (CALCIUM) 500 Mg Tablet, 500 MG GT DAILY 07/16/17 Apixaban (ELIQUIS) 2.5 Mg Tablet, 2.5 MG GT BID 07/16/17 Ranitidine Hcl* (ZANTAC*) 150 Mg Tablet, 300 MG GT BEDTIME 07/16/17 Pravastatin Sod (PRAVASTATIN SOD) 80 Mg Tablet, 80 MG GT BEDTIME 07/16/17 Clopidogrel* (CLOPIDOGREL*) 75 Mg Tablet, 75 MG GT DAILY 07/16/17 Bethanechol* (BETHANECHOL*) 10 Mg Tablet, 10 MG GT THREE TIMES A DAY 07/16/17 Amlodipine Besylate* (AMLODIPINE BESYLATE*) 10 Mg Tablet, 10 MG GT DAILY 07/16/17 Metoprolol Tartrate* (METOPROLOL TARTRATE*) 25 Mg Tablet, 25 MG GT BID 07/16/17 Lisinopril (LISINOPRIL*) 5 Mg Tablet, 5 MG GT DAILY 07/16/17 Discontinued Reported Medications Gluc/Pradeep-MSM#1/C/Connor/Adrian/Bor (Osteo Bi-Flex Caplet) 1 Each Tablet, 1 EACH PO, TAB 10/10/15 Lidocaine (Lidoderm) 700 Mg Adh..patch, 1 PATCH TOPIC, #7 PATCH 0 Refills Patch(es) may remain in place for up to 12 hours in any 24-hour period. 10/10/15 Benazepril Hcl* (BENAZEPRIL HCL*) 20 Mg Tablet, 20 MG ORAL EVERY 12 HOURS, TAB 10/10/15 Benzonatate* (BENZONATATE*) 100 Mg Capsule, 100 MG ORAL DAILY, PERLE 10/10/15 Discontinued Scripts Trimethoprim/Sulfamethoxazole (Bactrim Ds Tablet) 1 Ea Tab, 1 EA ORAL TWICE A DAY for 5 Days, TAB Prov:Alessandro Savage M.D. 10/10/15 Allergies: Coded Allergies: No Known Allergies (Unverified , 05/25/13) GI: Plan Plan The patient was seen and examined at bedside and all new and available data was reviewed in the patients chart. I agree with the above findings, impression and plan. (Patient seen earlier today. Signature stamp does not reflect patient encounter time.). - MD Darlene HernandezC[facility] Charlie N.PChelsea Jul 17, 2017 15:59 MITUL JUAREZ Jul 20, 2017 08:56
[2017-07-17] MEDS: Heparin 25,000u/D5W 500ml 500 ML IV SCH (18:02)
[2017-07-17] MEDS: Azithromycin 250mg tab ORAL SCH (18:04)
[2017-07-17] MEDS: Pantoprazole 80 MG in NS 250 ML IV SCH (18:04)
[2017-07-17] MEDS: Vancomycin 500mg/D5W 110ml IVPB SCH ×2 (20:57)
[2017-07-17] MEDS: Metoprolol Tartrate 12.5mg TAB ORAL SCH (20:59)
--- NOTE | 2017-07-17 21:30 | Consultation ---
DATE OF CONSULTATION: 07/17/2017 CARDIOLOGY CONSULTATION CONSULTING PHYSICIAN: Alex Askew M.D. ATTENDING/REFERRING PHYSICIAN: Mac Mendoza M.D. REASON FOR CONSULTATION: [id number] myocardial infarction with troponin of 10. HISTORY OF PRESENT ILLNESS: The patient is an 87-year-old lady with history of hypertension, who was brought to the emergency room for respiratory distress and shortness of breath from jail. O2 saturation was 80%. The patient initially was placed on BiPAP. The patient apparently has dementia at baseline and was unable to provide any information. The patient then subsequently was intubated and was brought to the intensive care unit for further evaluation and management. Troponin also came up to 10. Her EKG also showed sinus rhythm with rate of 109 with left bundle-branch block. At the time of my evaluation, the patient is in intensive care unit on the ventilator and was given blood transfusion as her hemoglobin was only 7. PAST MEDICAL HISTORY: 1. Hypertension. 2. Dementia. FAMILY HISTORY: Noncontributory. SOCIAL HISTORY: She [facility] in a jail. Does not smoke or drink alcohol. REVIEW OF SYSTEMS: Cannot be obtained. PHYSICAL EXAMINATION: VITAL SIGNS: Blood pressure is 126/44, pulse 64, respirations 18, and she is afebrile. HEAD AND NECK: Shows no JVD. LUNGS: Decreased breath sounds. Coarse rhonchi. She is orally intubated. CARDIOVASCULAR: Shows regular S1 and S2 with no gallop. ABDOMEN: Soft. EXTREMITIES: No pitting edema. LABORATORY DATA: White count of 18.3, hemoglobin of 7.2, hematocrit of 22.8, and platelet count of 229,000. Sodium 135, potassium 4.5, BUN of 21, creatinine of 0.7, glucose 142, and calcium is 7. Her initial troponin was 10.29. BNP was more than 35,000. ASSESSMENT AND PLAN: 1. [id number] myocardial infarction in the setting of left bundle-branch block. The patient is severely anemic and is on the ventilator and not stable for cardiac catheterization. Repeat EKG from today showed normal sinus rhythm with low-voltage QRS, but no ST elevation and left bundle-branch block has already been resolved. Her echocardiogram also showed ejection fraction of 50% with no evidence of left ventricular hypertrophy with mild diastolic dysfunction. Continue medical therapy. The patient seems on aspirin, we will hold it in view of her possible bleed as the hemoglobin dropped to only 7 and the patient needing blood transfusion. Her echocardiogram, however, showed normal left ventricular systolic function. 2. Respiratory failure. Ejection fraction is normal. She has only mild diastolic dysfunction, but the BNP is elevated. This is likely due to the patient's sepsis. Questionable urinary tract infection versus pneumonia versus Clostridium difficile. The patient is on broad-spectrum intravenous antibiotics per Dr. Rosado. 3. Respiratory failure, on the ventilator, under the management of Dr. Nobles. 4. Acute toxic metabolic encephalopathy on chronic dementia. 5. Acute anemia, requiring blood transfusion. 6. Lactic acidosis, likely due to sepsis. We will repeat troponin. If per laboratory data, troponin levels are coming down, then I will stop the heparin especially in view of her severe anemia. Thank you very much, Dr. Mendoza, for allowing me to participate in the care of this patient. Please do not hesitate to contact me if you have any questions regarding my evaluation. Alex Askew M.D. DR: MAGGY JOB#: [id number] CC:
[2017-07-18] VITALS (24 sets, daily range): BP systolic 102–140; BP diastolic 41–66
[2017-07-18 00:10] LABS: HEMATOCRIT 25.2 % (37.0-47.0); HEMOGLOBIN 8.2 G/DL (12.0-16.0); MEAN CORPUSCULAR VOLUME 85 FL (80-99); PLATELET COUNT 209 K/UL (150-450); RED BLOOD COUNT 2.95 M/UL (4.20-5.40); RED CELL DISTRIBUTION WIDTH 19.6 % (11.6-14.8); WHITE BLOOD COUNT 15.4 K/UL (4.8-10.8)
[2017-07-18] MEDS: Pantoprazole 80 MG in NS 250 ML IV SCH ×2 (04:54→14:48)
[2017-07-18 05:08] LABS: BASOPHILS % (AUTO) 0.2 % (0.0-2.0); HEMATOCRIT 24.9 % (37.0-47.0); HEMOGLOBIN 8.2 G/DL (12.0-16.0); LYMPHOCYTES % (AUTO) 10.2 % (20.0-45.0); MEAN CORPUSCULAR VOLUME 86 FL (80-99); MONOCYTES % (AUTO) 5.4 % (1.0-10.0); NEUTROPHILS % (AUTO) 84.1 % (45.0-75.0); PLATELET COUNT 199 K/UL (150-450); RED CELL DISTRIBUTION WIDTH 19.6 % (11.6-14.8); WHITE BLOOD COUNT 14.9 K/UL (4.8-10.8)
[2017-07-18 05:19] LABS: INR 1.1 (0.9-1.1)
[2017-07-18 05:27] LABS: ANION GAP 5 mmol/L (5-15); BLOOD UREA NITROGEN 16 mg/dL (7-18); CALCIUM 7.2 MG/DL (8.5-10.1); CARBON DIOXIDE 26 MMOL/L (21-32); CHLORIDE 108 MMOL/L (98-107); CHOLESTEROL 95 MG/DL (< 200); CREATININE 0.5 MG/DL (0.55-1.30); HDL CHOLESTEROL 41 MG/DL (40-60); POTASSIUM 4.1 MMOL/L (3.5-5.1); SODIUM 139 MMOL/L (136-145); TRIGLYCERIDES 88 MG/DL (30-150)
[2017-07-18 05:49] LABS: % IRON SATURATION 4 % (15-50); IRON 8 ug/dL (50-175); TOTAL IRON BINDING CAPACITY 187 ug/dL (250-450)
--- NOTE | 2017-07-18 08:01 | Pulmonolgy Critical Care Note ---
Critical Care - Asmt/Plan Assessment/Plan: ASSESSMENT acute hypoxemic respiratory failure requiring intubation sepsis with shock PNA UTI with Staph aureus NSTEMI LBBB acute toxic metabolic encephalopathy on chronic dementia ( likely due to to sepsis, NSTEMI) acute anemia requiring blood transfusion lactic acidosis transaminitis severe protein calorie malnutrition dehydration PLAN OF CARE ICU vent support pulmonary toilet today ABG stable, titrate FiO2 to keep sat above 92% fup with daily CXR and ABG abx, ID follows urine cx + Staph ( GNB small colony count), sputum cx pending, blood cx prel negative, stool C dif negative heparin gtt cardio follows serial troponin c/w NSTEMI not stable for cardiac cath ECHO with EF 50% and RVSP of 28 s/p blood transfusion CBC done at [facility] and repeated this am with no change in HH GI follows PPI gtt monitor HH, with goal to keep Hgb above 8 anemia w/up c/w anemia of chronic disease and has iron deficiency start Venofer x5 doses gastric lavage by GI 07/17 with evidence of GI bleeding per GI will need EGD when stable with prior cardiac clearance trend LFT likely due to sepsis and shock pain management bowel regimen venous Duplex BLE case discussed and evaluated by supervising physician Critical Care - Objective Last 24 Hour Vital Signs Date Time Temp Pulse Resp B/P (MAP) Pulse Ox O2 Delivery O2 Flow Rate FiO2 07/18/17 07:14 63 17 35 07/18/17 07:00 62 25 120/51 100 Mechanical Ventilator 35 07/18/17 06:00 83 25 102/42 100 Mechanical Ventilator 35 07/18/17 05:05 67 17 35 07/18/17 05:00 84 26 139/42 100 Mechanical Ventilator 35 07/18/17 04:00 98.0 88 28 130/44 100 Mechanical Ventilator 35 07/18/17 04:00 64 07/18/17 04:00 35 07/18/17 03:00 86 19 137/44 100 Mechanical Ventilator 35 07/18/17 02:50 68 19 35 07/18/17 02:00 68 19 119/41 100 Mechanical Ventilator 35 07/18/17 01:17 65 19 35 07/18/17 01:00 66 19 117/45 100 Mechanical Ventilator 35 07/18/17 00:00 65 07/18/17 00:00 35 07/18/17 00:00 98.4 65 18 110/41 100 Mechanical Ventilator 35 07/17/17 23:00 70 20 127/50 100 Mechanical Ventilator 35 07/17/17 22:49 63 17 35 07/17/17 22:15 102/40 07/17/17 22:00 64 17 106/42 100 Mechanical Ventilator 35 07/17/17 21:10 67 16 35 07/17/17 21:00 62 17 101/41 100 Mechanical Ventilator 35 07/17/17 20:59 74 122/49 07/17/17 20:00 98.2 65 17 122/49 100 Mechanical Ventilator 35 07/17/17 20:00 35 07/17/17 20:00 65 07/17/17 19:06 67 18 35 07/17/17 19:00 66 16 124/65 100 Mechanical Ventilator 40 07/17/17 18:00 63 18 132/55 100 Mechanical Ventilator 40 07/17/17 17:00 62 18 117/54 100 Mechanical Ventilator 40 07/17/17 16:33 83 16 35 07/17/17 16:00 40 07/17/17 16:00 99 07/17/17 16:00 98.6 62 17 119/55 100 Mechanical Ventilator 40 07/17/17 15:10 68 17 40 07/17/17 15:00 66 18 109/74 100 Mechanical Ventilator 40 07/17/17 14:00 63 16 124/47 100 Mechanical Ventilator 40 07/17/17 13:00 64 16 111/48 100 Mechanical Ventilator 40 07/17/17 12:52 65 16 40 07/17/17 12:00 50 07/17/17 12:00 97.1 63 16 108/50 100 Mechanical Ventilator 50 07/17/17 12:00 64 07/17/17 11:00 64 16 126/44 100 Mechanical Ventilator 50 07/17/17 10:57 50 07/17/17 10:42 66 17 50 07/17/17 10:00 67 19 117/44 100 Mechanical Ventilator 70 07/17/17 09:39 65 16 50 07/17/17 09:11 101.1 07/17/17 09:00 67 18 110/46 100 Mechanical Ventilator 70 07/17/17 08:00 87 07/17/17 08:00 102.6 75 20 121/42 100 Mechanical Ventilator 70 07/17/17 08:00 70 07/17/17 07:49 81 18 65 Objective: Condition: critical, awake HEENT: atraumatic, normocephalic, OP with ET in place Lungs: clear Heart: HR/BP stable Abdomen: soft, non-tender Extremities: no C/C/E Micro: Microbiology Date/Time Source Procedure Growth Status 07/16/17 19:00 Blood Blood Culture - Preliminary NO GROWTH AFTER 24 HOURS Resulted 07/16/17 18:50 Blood Blood Culture - Preliminary NO GROWTH AFTER 24 HOURS Resulted 07/17/17 01:20 Wound Gram Stain - Final Resulted 07/17/17 01:20 Wound Wound Culture Pending Resulted 07/17/17 11:00 Sputum Gram Stain - Final Resulted 07/17/17 11:00 Sputum Sputum Culture Pending Resulted 07/16/17 19:30 Nasal Nares MRSA Culture - Final Staphylococcus Aureus - Mrsa Complete 07/17/17 08:00 Stool Clostridium difficile Toxin Assay - Final Complete 07/16/17 19:28 Urine,Clean Catch Urine Culture - Preliminary Gram Negative Anjum Staphylococcus Aureus Resulted Critical Care - Subjective ROS Limited/Unobtainable: Yes Interval Events: intubated ABG stable no signs of respiratory distress stil with leucocytosis , afebrile on heparin gtt and Protonix gtt s/p blood transfusion HH at baseline Condition: critical IV Access: peripheral EKG Rhythm: Sinus Rhythm FI02: 35 Vent Support Breath Rate: 16 Vent Support Mode: AC Vent Tidal Volume: 500 Sputum Amount: Scant PEEP: 5.0 PIP: 25 Fluids: NS at 100 cc/hr Drips: Heparin gtt at 12 ml/hr; Protonix gtt at 25 ml/hr CXR: CXR 07/18 - Slight interval decrease in bilateral pleural effusions. Additional findings unchanged. ET-Tube: 7.5 ET Position: 22 Sukumar (Fariha Quevedo NP Jul 18, 2017 08:01
[2017-07-18] MEDS: Metoprolol Tartrate 12.5mg TAB ORAL SCH ×2 (08:30→20:44)
[2017-07-18] MEDS: Aspirin EC 81mg tab ORAL SCH (08:30)
[2017-07-18] MEDS: Azithromycin 250mg tab ORAL SCH (08:30)
[2017-07-18] MEDS: Meropenem 1 GM in NS 55 ML IVPB SCH ×2 (08:30→20:42)
[2017-07-18] MEDS: Amikacin 700 MG in NS 110 ML IV SCH (12:18)
--- NOTE | 2017-07-18 12:18 | Diagnostic Imaging Report ---
Indication: Redness of breath Technique: XRAY Chest 1v Comparison: 07/17/2017 Findings: ET tube unchanged in position. Heart size and mediastinal contours are stable. There is evidence of coronary arterial stenting. Slight interval decrease in bilateral pleural effusions. There is persistent bibasilar atelectasis/consolidation. Mild interstitial edema/opacification. No pneumothorax. Biapical pleural capping unchanged. No acute osseous abnormality seen. Impression: Slight interval decrease in bilateral pleural effusions. Additional findings unchanged.
[2017-07-18 12:32] LABS: BASOPHILS % (AUTO) 0.2 % (0.0-2.0); HEMATOCRIT 26.4 % (37.0-47.0); HEMOGLOBIN 8.2 G/DL (12.0-16.0); LYMPHOCYTES % (AUTO) 10.9 % (20.0-45.0); MEAN CORPUSCULAR VOLUME 86 FL (80-99); MONOCYTES % (AUTO) 4.4 % (1.0-10.0); NEUTROPHILS % (AUTO) 84.5 % (45.0-75.0); PLATELET COUNT 217 K/UL (150-450); RED BLOOD COUNT 3.07 M/UL (4.20-5.40); RED CELL DISTRIBUTION WIDTH 19.3 % (11.6-14.8); WHITE BLOOD COUNT 12.5 K/UL (4.8-10.8)
--- NOTE | 2017-07-18 13:48 | Infectious Diseases Prog Note ---
Assessment/Plan Assessment/Plan Full consult dictated: A) 1) sepsis, leukocytosis, fevers 2) gram neg uti, staph aureus uti, ? pna, c.diff. negative, ? gram neg g- tube infection 3) pmh noted 4) allergies - negative P) 1) meropenem, vancomycin, azithromycin, amikacin 2) check sc, labs, uc, c.diff., chest x-ray 3) icu, vent, supportive care 4) d/w RN Subjective Constitutional: Denies: fever HEENT: Reports: other - on vent Respiratory: Reports: shortness of breath Gastrointestinal/Abdominal: Denies: nausea, vomiting, diarrhea Genitourinary: Reports: other - + blake Allergies: Coded Allergies: No Known Allergies (Unverified , 05/25/13) Objective Vital Signs Last 24 Hour Vital Signs Date Time Temp Pulse Resp B/P (MAP) Pulse Ox O2 Delivery O2 Flow Rate FiO2 07/18/17 13:00 62 17 137/47 100 Mechanical Ventilator 35 07/18/17 12:51 65 19 35 07/18/17 12:00 56 07/18/17 12:00 35 07/18/17 12:00 98.0 66 20 119/50 100 Mechanical Ventilator 35 07/18/17 11:00 59 17 114/44 100 Mechanical Ventilator 35 07/18/17 10:30 61 17 35 07/18/17 10:00 62 18 128/53 100 Mechanical Ventilator 35 07/18/17 09:00 67 18 118/49 100 Mechanical Ventilator 35 07/18/17 08:38 68 18 35 07/18/17 08:30 65 156/62 07/18/17 08:00 98.4 64 18 120/49 100 Mechanical Ventilator 35 07/18/17 08:00 83 07/18/17 08:00 35 07/18/17 07:14 63 17 35 07/18/17 07:00 62 25 120/51 100 Mechanical Ventilator 35 07/18/17 06:00 83 25 102/42 100 Mechanical Ventilator 35 07/18/17 05:05 67 17 35 07/18/17 05:00 84 26 139/42 100 Mechanical Ventilator 35 07/18/17 04:00 98.0 88 28 130/44 100 Mechanical Ventilator 35 07/18/17 04:00 64 07/18/17 04:00 35 07/18/17 03:00 86 19 137/44 100 Mechanical Ventilator 35 07/18/17 02:50 68 19 35 07/18/17 02:00 68 19 119/41 100 Mechanical Ventilator 35 07/18/17 01:17 65 19 35 07/18/17 01:00 66 19 117/45 100 Mechanical Ventilator 35 07/18/17 00:00 65 07/18/17 00:00 35 07/18/17 00:00 98.4 65 18 110/41 100 Mechanical Ventilator 35 07/17/17 23:00 70 20 127/50 100 Mechanical Ventilator 35 07/17/17 22:49 63 17 35 07/17/17 22:15 102/40 07/17/17 22:00 64 17 106/42 100 Mechanical Ventilator 35 07/17/17 21:10 67 16 35 07/17/17 21:00 62 17 101/41 100 Mechanical Ventilator 35 07/17/17 20:59 74 122/49 07/17/17 20:00 98.2 65 17 122/49 100 Mechanical Ventilator 35 07/17/17 20:00 35 07/17/17 20:00 65 07/17/17 19:06 67 18 35 07/17/17 19:00 66 16 124/65 100 Mechanical Ventilator 40 07/17/17 18:00 63 18 132/55 100 Mechanical Ventilator 40 07/17/17 17:00 62 18 117/54 100 Mechanical Ventilator 40 07/17/17 16:33 83 16 35 07/17/17 16:00 40 07/17/17 16:00 99 07/17/17 16:00 98.6 62 17 119/55 100 Mechanical Ventilator 40 07/17/17 15:10 68 17 40 07/17/17 15:00 66 18 109/74 100 Mechanical Ventilator 40 07/17/17 14:00 63 16 124/47 100 Mechanical Ventilator 40 Height (Feet): 5 Height (Inches): 2.00 Weight (Pounds): 108 HEENT: normocephalic, atraumatic, anicteric Respiratory/Chest: crackles/rales, rhonchi - bilaterally Cardiovascular: normal rate, regular rhythm, no gallop/murmur Abdomen: normal bowel sounds, soft, non tender, no organomegaly, non distended Genitourinary: other - + blake Microbiology Date/Time Source Procedure Growth Status 07/16/17 19:00 Blood Blood Culture - Preliminary NO GROWTH AFTER 24 HOURS Resulted 07/16/17 18:50 Blood Blood Culture - Preliminary NO GROWTH AFTER 24 HOURS Resulted 07/17/17 01:20 Wound Gram Stain - Final Resulted 07/17/17 01:20 Wound Culture - Preliminary Gram Negative Bacillus 1 Gram Negative Bacillus 2 Resulted 07/17/17 11:00 Sputum Gram Stain - Final Resulted 07/17/17 11:00 Sputum Sputum Culture Pending Resulted 07/16/17 19:30 Nasal Nares MRSA Culture - Final Staphylococcus Aureus - Mrsa Complete 07/17/17 08:00 Stool Clostridium difficile Toxin Assay - Final Complete 07/16/17 19:28 Urine,Clean Catch Urine Culture - Preliminary Gram Negative Anjum Staphylococcus Aureus Resulted Laboratory Tests Test 07/17/17 16:00 07/17/17 18:45 07/18/17 00:00 07/18/17 04:30 Stool Occult Blood Pending Troponin I 9.921 ng/mL (0.000-0.056) 8.493 ng/mL (0.000-0.056) White Blood Count 15.4 K/UL (4.8-10.8) H 14.9 K/UL (4.8-10.8) H Red Blood Count 2.95 M/UL (4.20-5.40) L 2.90 M/UL (4.20-5.40) L Hemoglobin 8.2 G/DL (12.0-16.0) L 8.2 G/DL (12.0-16.0) L Hematocrit 25.2 % (37.0-47.0) L 24.9 % (37.0-47.0) L Mean Corpuscular Volume 85 FL (80-99) 86 FL (80-99) Mean Corpuscular Hemoglobin 27.9 PG (27.0-31.0) 28.5 PG (27.0-31.0) Mean Corpuscular Hemoglobin Concent 32.7 G/DL (32.0-36.0) 33.2 G/DL (32.0-36.0) Red Cell Distribution Width 19.6 % (11.6-14.8) H 19.6 % (11.6-14.8) H Platelet Count 209 K/UL (150-450) 199 K/UL (150-450) Mean Platelet Volume 11.4 FL (6.5-10.1) H 11.1 FL (6.5-10.1) H Neutrophils (%) (Auto) % (45.0-75.0) 84.1 % (45.0-75.0) H Lymphocytes (%) (Auto) % (20.0-45.0) 10.2 % (20.0-45.0) L Monocytes (%) (Auto) % (1.0-10.0) 5.4 % (1.0-10.0) Eosinophils (%) (Auto) % (0.0-3.0) 0.0 % (0.0-3.0) Basophils (%) (Auto) % (0.0-2.0) 0.2 % (0.0-2.0) Differential Total Cells Counted 100 Neutrophils % (Manual) 85 % (45-75) H Lymphocytes % (Manual) 10 % (20-45) L Monocytes % (Manual) 5 % (1-10) Eosinophils % (Manual) 0 % (0-3) Basophils % (Manual) 0 % (0-2) Band Neutrophils 0 % (0-8) Platelet Estimate Adequate Platelet Morphology Normal Reticulocyte Count 1.3 % (0.0-2.0) Prothrombin Time 11.4 SEC (9.30-11.50) Prothromb Time International Ratio 1.1 (0.9-1.1) Activated Partial Thromboplast Time 71 SEC (23-33) H Sodium Level 139 MMOL/L (136-145) Potassium Level 4.1 MMOL/L (3.5-5.1) Chloride Level 108 MMOL/L (98-107) H Carbon Dioxide Level 26 MMOL/L (21-32) Anion Gap 5 mmol/L (5-15) Blood Urea Nitrogen 16 mg/dL (7-18) Creatinine 0.5 MG/DL (0.55-1.30) L Estimat Glomerular Filtration Rate mL/min (>60) Glucose Level 84 MG/DL (74-106) Calcium Level 7.2 MG/DL (8.5-10.1) L Iron Level 8 ug/dL (50-175) L Total Iron Binding Capacity 187 ug/dL (250-450) L Percent Iron Saturation 4 % (15-50) L Unsaturated Iron Binding 179 ug/dL (112-346) Ferritin 101 NG/ML (8-388) Pro-B-Type Natriuretic Peptide 55771 pg/mL (0-125) H Triglycerides Level 88 MG/DL (30-150) Cholesterol Level 95 MG/DL (< 200) LDL Cholesterol 41 mg/dL (<100) HDL Cholesterol 41 MG/DL (40-60) Cholesterol/HDL Ratio 2.3 (3.3-4.4) L Vitamin B12 Level 593 PG/ML (193-986) Folate 36.3 NG/ML (8.6-58.9) Thyroid Stimulating Hormone (TSH) 4.084 uiU/mL (0.358-3.740) Free Thyroxine 1.24 NG/DL (0.76-1.46) Test 07/18/17 08:30 07/18/17 12:15 Arterial Blood pH 7.458 (7.350-7.450) Arterial Blood Partial Pressure CO2 33.4 mmHg (35.0-45.0) L Arterial Blood Partial Pressure O2 132.5 mmHg (75.0-100.0) H Arterial Blood HCO3 23.1 mmol/L (22.0-26.0) Arterial Blood Oxygen Saturation 98.0 % (92.0-98.0) Arterial Blood Base Excess -0.5 Jamie Test Positive White Blood Count 12.5 K/UL (4.8-10.8) H Red Blood Count 3.07 M/UL (4.20-5.40) L Hemoglobin 8.2 G/DL (12.0-16.0) L Hematocrit 26.4 % (37.0-47.0) L Mean Corpuscular Volume 86 FL (80-99) Mean Corpuscular Hemoglobin 26.8 PG (27.0-31.0) L Mean Corpuscular Hemoglobin Concent 31.2 G/DL (32.0-36.0) L Red Cell Distribution Width 19.3 % (11.6-14.8) H Platelet Count 217 K/UL (150-450) Mean Platelet Volume 9.2 FL (6.5-10.1) Neutrophils (%) (Auto) 84.5 % (45.0-75.0) H Lymphocytes (%) (Auto) 10.9 % (20.0-45.0) L Monocytes (%) (Auto) 4.4 % (1.0-10.0) Eosinophils (%) (Auto) 0.0 % (0.0-3.0) Basophils (%) (Auto) 0.2 % (0.0-2.0) Current Medications Medications (Trade) Dose Ordered Sig/Analia Route PRN Reason Start Time Stop Time Status Last Admin Dose Admin Acetaminophen (Tylenol) 650 mg Q4H PRN ORAL fever 07/16/17 22:15 08/15/17 22:14 07/17/17 08:06 Albuterol/ Ipratropium (Albuterol/ Ipratropium) 3 ml EVERY 4 HOURS PRN HHN Shortness of Breath 07/16/17 22:15 07/21/17 22:14 Amikacin Protocol (Amikacin pharmacy to dose) 1 ea DAILY PRN MISC PER RX PROTOCOL 07/17/17 12:00 08/16/17 11:59 Amikacin Sulfate 700 mg/Sodium Chloride 112.8 ml @ 112.8 mls/ hr Q24H IV 07/18/17 12:00 07/25/17 11:59 07/18/17 12:18 Aspirin (Ecotrin) 81 mg DAILY ORAL 07/17/17 14:00 08/16/17 13:59 07/18/17 08:30 Atorvastatin Calcium (Lipitor) 10 mg BEDTIME ORAL 07/17/17 21:00 08/16/17 20:59 Azithromycin (Zithromax) 250 mg DAILY ORAL 07/17/17 18:00 07/24/17 17:59 07/18/17 08:30 Chlorhexidine Gluconate (Joana-Hex 2%) 1 applic DAILY@2000 TOPIC 07/18/17 20:00 08/17/17 19:59 Heparin Sodium/ Dextrose 500 ml @ 11.433 mls/ hr adjust per protocol IV 07/17/17 14:40 08/16/17 14:39 07/17/17 18:02 Iron Sucrose 100 mg/Sodium Chloride 60 ml @ 240 mls/hr BEDTIME IV 07/18/17 21:00 07/22/17 21:14 Lorazepam (Ativan 2mg/ml 1ml) 2 mg EVERY 2 HOURS PRN IV For Anxiety 07/16/17 22:15 07/23/17 22:14 07/17/17 20:52 Meropenem 1 gm/ Sodium Chloride 55 ml @ 110 mls/hr Q12HR IVPB 07/17/17 13:00 07/22/17 12:59 07/18/17 08:30 Metoprolol Tartrate (Lopressor) 12.5 mg Q12HR ORAL 07/17/17 21:00 08/16/17 20:59 07/18/17 08:30 Morphine Sulfate (Morphine Sulfate) 4 mg EVERY 4 HOURS PRN IVP Severe Pain (Pain Scale 7-10) 07/16/17 22:15 07/23/17 22:14 Norepinephrine Bitartrate 4 mg/ Dextrose 254 ml @ 0 mls/hr Q24H IV 07/16/17 22:15 08/15/17 22:14 Ondansetron HCl (Zofran) 4 mg Q6H PRN IVP Nausea & Vomiting 07/16/17 22:15 08/15/17 22:14 Pantoprazole 80 mg/Sodium Chloride 250 ml @ 25 mls/hr Q10H IV 07/17/17 18:00 08/16/17 17:59 07/18/17 04:54 Polyethylene Glycol (Miralax) 17 gm DAILYPRN PRN ORAL Constipation 07/16/17 22:15 08/15/17 22:14 Sodium Chloride 1,000 ml @ 75 mls/hr [id number] IVLG 07/18/17 12:00 08/17/17 11:59 07/18/17 12:18 Vancomycin HCl (Vanco rx to dose) 1 ea DAILY PRN MISC per protocol 07/17/17 00:45 08/16/17 00:44 Vancomycin HCl 500 mg/Dextrose 110 ml @ 110 mls/hr Q24H IVPB 07/17/17 21:00 07/22/17 20:59 07/17/17 20:57 MIHAELA TUBBS Jul 18, 2017 13:48
[2017-07-18] MEDS ORDERED: Sterile Water Irrig 1000ml IRRIG ONE (16:07)
[2017-07-18] MEDS ORDERED: Tubing Blood Filter IV ONE (16:07)
[2017-07-18] MEDS ORDERED: Tubing IV Secondary IV ONE (16:15)
[2017-07-18] MEDS ORDERED: D5W 275ml ONE (16:15)
[2017-07-18] MEDS ORDERED: NS 500ML ONE (16:15)
--- NOTE | 2017-07-18 16:51 | General Progress Note ---
Assessment/Plan Assessment/Plan Assessment - respiratory failure - dysphagia, s/p prior GJ tube - UGIB - no plans for EGD at this time due to [place] - NSTEMI - AMS - Anemia Recommendations - Begin J tube feeds - monitor H&H closely - cardiology f/u - PPI Subjective Allergies: Coded Allergies: No Known Allergies (Unverified , 05/25/13) Subjective seen in ICU non communicative discussed with RN Objective Last 24 Hour Vital Signs Date Time Temp Pulse Resp B/P (MAP) Pulse Ox O2 Delivery O2 Flow Rate FiO2 07/18/17 16:00 98.1 72 20 120/56 98 Mechanical Ventilator 35 07/18/17 16:00 65 07/18/17 16:00 35 07/18/17 15:00 63 18 128/53 100 Mechanical Ventilator 35 07/18/17 14:40 62 18 35 07/18/17 14:00 84 24 123/56 100 Mechanical Ventilator 35 07/18/17 13:00 62 17 137/47 100 Mechanical Ventilator 35 07/18/17 12:51 65 19 35 07/18/17 12:00 56 07/18/17 12:00 35 07/18/17 12:00 98.0 66 20 119/50 100 Mechanical Ventilator 35 07/18/17 11:00 59 17 114/44 100 Mechanical Ventilator 35 07/18/17 10:30 61 17 35 07/18/17 10:00 62 18 128/53 100 Mechanical Ventilator 35 07/18/17 09:00 67 18 118/49 100 Mechanical Ventilator 35 07/18/17 08:38 68 18 35 07/18/17 08:30 65 156/62 07/18/17 08:00 98.4 64 18 120/49 100 Mechanical Ventilator 35 07/18/17 08:00 83 07/18/17 08:00 35 07/18/17 07:14 63 17 35 07/18/17 07:00 62 25 120/51 100 Mechanical Ventilator 35 07/18/17 06:00 83 25 102/42 100 Mechanical Ventilator 35 07/18/17 05:05 67 17 35 07/18/17 05:00 84 26 139/42 100 Mechanical Ventilator 35 07/18/17 04:00 98.0 88 28 130/44 100 Mechanical Ventilator 35 07/18/17 04:00 64 07/18/17 04:00 35 07/18/17 03:00 86 19 137/44 100 Mechanical Ventilator 35 07/18/17 02:50 68 19 35 07/18/17 02:00 68 19 119/41 100 Mechanical Ventilator 35 07/18/17 01:17 65 19 35 07/18/17 01:00 66 19 117/45 100 Mechanical Ventilator 35 07/18/17 00:00 65 07/18/17 00:00 35 07/18/17 00:00 98.4 65 18 110/41 100 Mechanical Ventilator 35 07/17/17 23:00 70 20 127/50 100 Mechanical Ventilator 35 07/17/17 22:49 63 17 35 07/17/17 22:15 102/40 07/17/17 22:00 64 17 106/42 100 Mechanical Ventilator 35 07/17/17 21:10 67 16 35 07/17/17 21:00 62 17 101/41 100 Mechanical Ventilator 35 07/17/17 20:59 74 122/49 07/17/17 20:00 98.2 65 17 122/49 100 Mechanical Ventilator 35 07/17/17 20:00 35 07/17/17 20:00 65 07/17/17 19:06 67 18 35 07/17/17 19:00 66 16 124/65 100 Mechanical Ventilator 40 07/17/17 18:00 63 18 132/55 100 Mechanical Ventilator 40 07/17/17 17:00 62 18 117/54 100 Mechanical Ventilator 40 Intake and Output 07/18/17 07/19/17 19:00 07:00 Intake Total 713.41 ml Output Total 215 ml Balance 498.41 ml Free Water 30 ml IV Total 633.41 ml Other 50 ml Output Urine Total 215 ml # Bowel Movements 2 Laboratory Tests 07/17/17 18:45: Troponin I 9.921H 07/18/17 00:00: White Blood Count 15.4H, Red Blood Count 2.95L, Hemoglobin 8.2L, Hematocrit 25.2L, Mean Corpuscular Volume 85, Mean Corpuscular Hemoglobin 27.9, Mean Corpuscular Hemoglobin Concent 32.7, Red Cell Distribution Width 19.6H, Platelet Count 209, Mean Platelet Volume 11.4H, Neutrophils (%) (Auto) , Lymphocytes (%) (Auto) , Monocytes (%) (Auto) , Eosinophils (%) (Auto) , Basophils (%) (Auto) , Differential Total Cells Counted 100, Neutrophils % ( Manual) 85H, Lymphocytes % (Manual) 10L, Monocytes % (Manual) 5, Eosinophils % ( Manual) 0, Basophils % (Manual) 0, Band Neutrophils 0, Platelet Estimate Adequate, Platelet Morphology Normal 07/18/17 04:30: Troponin I 8.493H, White Blood Count 14.9H, Red Blood Count 2.90L, Hemoglobin 8.2L, Hematocrit 24.9L, Mean Corpuscular Volume 86, Mean Corpuscular Hemoglobin 28.5, Mean Corpuscular Hemoglobin Concent 33.2, Red Cell Distribution Width 19.6H, Platelet Count 199, Mean Platelet Volume 11.1H, Neutrophils (%) (Auto) 84.1H, Lymphocytes (%) (Auto) 10.2L, Monocytes (%) (Auto) 5.4, Eosinophils (%) ( Auto) 0.0, Basophils (%) (Auto) 0.2, Reticulocyte Count 1.3, Prothrombin Time 11.4, Prothromb Time International Ratio 1.1, Activated Partial Thromboplast Time 71H, Sodium Level 139, Potassium Level 4.1, Chloride Level 108H, Carbon Dioxide Level 26, Anion Gap 5, Blood Urea Nitrogen 16, Creatinine 0.5L, Estimat Glomerular Filtration Rate , Glucose Level 84, Calcium Level 7.2L, Iron Level 8L , Total Iron Binding Capacity 187L, Percent Iron Saturation 4L, Unsaturated Iron Binding 179, Ferritin 101, Pro-B-Type Natriuretic Peptide [id number], Triglycerides Level 88, Cholesterol Level 95, LDL Cholesterol 41, HDL Cholesterol 41, Cholesterol/HDL Ratio 2.3L, Vitamin B12 Level 593, Folate 36.3, Thyroid Stimulating Hormone (TSH) 4.084H, Free Thyroxine 1.24 07/18/17 08:30: Arterial Blood pH 7.458H, Arterial Blood Partial Pressure CO2 33.4L, Arterial Blood Partial Pressure O2 132.5H, Arterial Blood HCO3 23.1, Arterial Blood Oxygen Saturation 98.0, Arterial Blood Base Excess -0.5, Jamie Test Positive 07/18/17 12:15: White Blood Count 12.5H, Red Blood Count 3.07L, Hemoglobin 8.2L, Hematocrit 26.4L, Mean Corpuscular Volume 86, Mean Corpuscular Hemoglobin 26.8L, Mean Corpuscular Hemoglobin Concent 31.2L, Red Cell Distribution Width 19.3H, Platelet Count 217, Mean Platelet Volume 9.2, Neutrophils (%) (Auto) 84.5H, Lymphocytes (%) (Auto) 10.9L, Monocytes (%) (Auto) 4.4, Eosinophils (%) (Auto) 0.0, Basophils (%) (Auto) 0.2 Height (Feet): 5 Height (Inches): 2.00 Weight (Pounds): 108 Objective Thin WW NCAT supple CTA RR Soft , flat, (+) GJ tube no edema BIENVENIDO DORADO Jul 18, 2017 16:51
[2017-07-18] MEDS: Heparin 25,000u/D5W 500ml 500 ML IV SCH (18:25)
[2017-07-18] MEDS: LORazepam Inj 2mg/ml 1ml IV PRN ×2 (18:45→21:41)
--- NOTE | 2017-07-18 18:58 | General Progress Note ---
Assessment/Plan Problem List: (1) Pneumonia ICD Codes: J18.9 - Pneumonia, unspecified organism SNOMED: 458439530, 392420544 Qualifiers: Qualified Codes: J18.1 - Lobar pneumonia, unspecified organism (2) Elevated troponin ICD Codes: R74.8 - Abnormal levels of other serum enzymes SNOMED: 177412167, 797019515 (3) Anemia ICD Codes: D64.9 - Anemia, unspecified SNOMED: 708911457 (4) CAD s/p PCI (5) Alzheimer's dementia ICD Codes: G30.9 - Alzheimer's disease, unspecified SNOMED: 71286841 (6) paroxsymal atrial fibrillation (7) Lactic acid acidosis ICD Codes: E87.2 - Acidosis SNOMED: 95701913 (8) Acute respiratory failure with hypoxia and hypercapnia ICD Codes: J96.01 - Acute respiratory failure with hypoxia; J96.02 - Acute respiratory failure with hypercapnia SNOMED: 27607594, 97049329, 310501341 (9) HCAP vs Aspiration pneumonia (10) UTI (urinary tract infection) ICD Codes: N39.0 - Urinary tract infection, site not specified SNOMED: 32693334 (11) Acute on chronic anemia (12) Failure to thrive SNOMED: 80211973 (13) NSTEMI (non-ST elevated myocardial infarction) ICD Codes: I21.4 - Non-ST elevation (NSTEMI) myocardial infarction SNOMED: 211441017 Status: progressing Assessment/Plan Continue in ICU Pulm, cardiology, ID, GI consulted, appreciate rec's Cont on vent and wean as tolerated Daily SBTs, sedation holiday Cont empiric vanco, zosyn, azithro, amikacin per ID (07/16-) F/u cultures Trend CBC, BMP, lactate Trend trop/EKG F/u TTE Cont heparin gtt for now per cardiology for NSTEMI Transfuse 1U pRBC today. No active bleeding noted, but low threshold to stop heparin gtt if hgb cont to drop Patient will eventually need EgD/colonoscopy to assess for GIB given acute drop in hemoglobin. However, patient is unstable at the moment given NSTEMI/elevated trops. Keep NPO for now Supportive care DVT Prophylaxis: SCD, heparin gtt Code Status: Full per discussion w/ pt's DPOA/daughter Hospital Classification Declaration: Based on this initial evaluation, and depending on the patient's clinical course, I anticipate that this patient will require hospitalization for 2-3 days for acute respiratory faiure, severe sepsis and close respiratory/hemodynamic monitoring. Disposition: Once the patient is stable to leave the hospital, I anticipate the patient will likely be discharged to the following environment: back to SNF I spent 70 minutes on this patient's case, and 39 minutes were dedicated to counseling and/or care coordination. Discussed with patient/family, nursing staff, SW/CM, ID, renal, pulm, cardiology regarding clinical status, treatment course, and disposition planning. Time of note may not reflect time of encounter. At the time of my involvement, the patient's condition was critical with high potential for and/or physiologic deterioration secondary to [] as delineated in the note above. On the above date of service, I spent a total of 45 minutes in the ICU evaluating, managing, and providing critical care services to this patient, including time spent documenting these activities, counseling patient/family, and coordinating care. Critical care services performed include: Telemetry Review Hemodynamic measurement interpretation Laboratory data review and interpretation Ventilator setting review, management, and adjustment Discussion of care plans with patient, family, and/or surrogate decision makers Discussion of patient's care with primary medical team, surgical team, and/or consulting service Decision to obtain further radiologic evaluation, after consideration of risk/ benefit ratio Review of most recent microbiology results with assessment and modification of antimicrobial coverage Discussion of patient's code status and further advancement towards the ultimate goals of care Plan outlined above discussed with patient/family, CHECKERER HAND, ICU team, and involved physicians/consultants. Time of note may not reflect time of encounter. Subjective Date patient seen: Jul 18, 2017 Allergies: Coded Allergies: No Known Allergies (Unverified , 05/25/13) Subjective seen by ID, cards, pulm, and GI intubated. alert and lethargic but follows commands continued on PPi gtt and heparin gtt Objective Last 24 Hour Vital Signs Date Time Temp Pulse Resp B/P (MAP) Pulse Ox O2 Delivery O2 Flow Rate FiO2 07/18/17 18:00 96 27 121/57 100 Mechanical Ventilator 35 07/18/17 17:00 66 19 136/54 98 Mechanical Ventilator 35 07/18/17 16:30 68 18 35 07/18/17 16:00 98.1 72 20 120/56 98 Mechanical Ventilator 35 07/18/17 16:00 65 07/18/17 16:00 35 07/18/17 15:00 63 18 128/53 100 Mechanical Ventilator 35 07/18/17 14:40 62 18 35 07/18/17 14:00 84 24 123/56 100 Mechanical Ventilator 35 07/18/17 13:00 62 17 137/47 100 Mechanical Ventilator 35 07/18/17 12:51 65 19 35 07/18/17 12:00 56 07/18/17 12:00 35 07/18/17 12:00 98.0 66 20 119/50 100 Mechanical Ventilator 35 07/18/17 11:00 59 17 114/44 100 Mechanical Ventilator 35 07/18/17 10:30 61 17 35 07/18/17 10:00 62 18 128/53 100 Mechanical Ventilator 35 07/18/17 09:00 67 18 118/49 100 Mechanical Ventilator 35 07/18/17 08:38 68 18 35 07/18/17 08:30 65 156/62 07/18/17 08:00 98.4 64 18 120/49 100 Mechanical Ventilator 35 07/18/17 08:00 83 07/18/17 08:00 35 07/18/17 07:14 63 17 35 07/18/17 07:00 62 25 120/51 100 Mechanical Ventilator 35 07/18/17 06:00 83 25 102/42 100 Mechanical Ventilator 35 07/18/17 05:05 67 17 35 07/18/17 05:00 84 26 139/42 100 Mechanical Ventilator 35 07/18/17 04:00 98.0 88 28 130/44 100 Mechanical Ventilator 35 07/18/17 04:00 64 07/18/17 04:00 35 07/18/17 03:00 86 19 137/44 100 Mechanical Ventilator 35 07/18/17 02:50 68 19 35 07/18/17 02:00 68 19 119/41 100 Mechanical Ventilator 35 07/18/17 01:17 65 19 35 07/18/17 01:00 66 19 117/45 100 Mechanical Ventilator 35 07/18/17 00:00 65 07/18/17 00:00 35 07/18/17 00:00 98.4 65 18 110/41 100 Mechanical Ventilator 35 07/17/17 23:00 70 20 127/50 100 Mechanical Ventilator 35 07/17/17 22:49 63 17 35 07/17/17 22:15 102/40 07/17/17 22:00 64 17 106/42 100 Mechanical Ventilator 35 07/17/17 21:10 67 16 35 07/17/17 21:00 62 17 101/41 100 Mechanical Ventilator 35 07/17/17 20:59 74 122/49 07/17/17 20:00 98.2 65 17 122/49 100 Mechanical Ventilator 35 07/17/17 20:00 35 07/17/17 20:00 65 07/17/17 19:06 67 18 35 07/17/17 19:00 66 16 124/65 100 Mechanical Ventilator 40 Intake and Output 07/18/17 07/19/17 19:00 07:00 Intake Total 713.41 ml Output Total 250 ml Balance 463.41 ml Free Water 30 ml IV Total 633.41 ml Other 50 ml Output Urine Total 250 ml # Bowel Movements 3 Laboratory Tests 07/18/17 00:00: White Blood Count 15.4H, Red Blood Count 2.95L, Hemoglobin 8.2L, Hematocrit 25.2L, Mean Corpuscular Volume 85, Mean Corpuscular Hemoglobin 27.9, Mean Corpuscular Hemoglobin Concent 32.7, Red Cell Distribution Width 19.6H, Platelet Count 209, Mean Platelet Volume 11.4H, Neutrophils (%) (Auto) , Lymphocytes (%) (Auto) , Monocytes (%) (Auto) , Eosinophils (%) (Auto) , Basophils (%) (Auto) , Differential Total Cells Counted 100, Neutrophils % ( Manual) 85H, Lymphocytes % (Manual) 10L, Monocytes % (Manual) 5, Eosinophils % ( Manual) 0, Basophils % (Manual) 0, Band Neutrophils 0, Platelet Estimate Adequate, Platelet Morphology Normal 07/18/17 04:30: White Blood Count 14.9H, Red Blood Count 2.90L, Hemoglobin 8.2L, Hematocrit 24.9L, Mean Corpuscular Volume 86, Mean Corpuscular Hemoglobin 28.5, Mean Corpuscular Hemoglobin Concent 33.2, Red Cell Distribution Width 19.6H, Platelet Count 199, Mean Platelet Volume 11.1H, Neutrophils (%) (Auto) 84.1H, Lymphocytes (%) (Auto) 10.2L, Monocytes (%) (Auto) 5.4, Eosinophils (%) (Auto) 0.0, Basophils (%) (Auto) 0.2, Reticulocyte Count 1.3, Prothrombin Time 11.4, Prothromb Time International Ratio 1.1, Activated Partial Thromboplast Time 71H , Sodium Level 139, Potassium Level 4.1, Chloride Level 108H, Carbon Dioxide Level 26, Anion Gap 5, Blood Urea Nitrogen 16, Creatinine 0.5L, Estimat Glomerular Filtration Rate , Glucose Level 84, Calcium Level 7.2L, Iron Level 8L , Total Iron Binding Capacity 187L, Percent Iron Saturation 4L, Unsaturated Iron Binding 179, Ferritin 101, Troponin I 8.493H, Pro-B-Type Natriuretic Peptide 61127Z, Triglycerides Level 88, Cholesterol Level 95, LDL Cholesterol 41 , HDL Cholesterol 41, Cholesterol/HDL Ratio 2.3L, Vitamin B12 Level 593, Folate 36.3, Thyroid Stimulating Hormone (TSH) 4.084H, Free Thyroxine 1.24 07/18/17 08:30: Arterial Blood pH 7.458H, Arterial Blood Partial Pressure CO2 33.4L, Arterial Blood Partial Pressure O2 132.5H, Arterial Blood HCO3 23.1, Arterial Blood Oxygen Saturation 98.0, Arterial Blood Base Excess -0.5, Jamie Test Positive 07/18/17 12:15: White Blood Count 12.5H, Red Blood Count 3.07L, Hemoglobin 8.2L, Hematocrit 26.4L, Mean Corpuscular Volume 86, Mean Corpuscular Hemoglobin 26.8L, Mean Corpuscular Hemoglobin Concent 31.2L, Red Cell Distribution Width 19.3H, Platelet Count 217, Mean Platelet Volume 9.2, Neutrophils (%) (Auto) 84.5H, Lymphocytes (%) (Auto) 10.9L, Monocytes (%) (Auto) 4.4, Eosinophils (%) (Auto) 0.0, Basophils (%) (Auto) 0.2 Height (Feet): 5 Height (Inches): 2.00 Weight (Pounds): 108 General Appearance: lethargic, other - intubated Neck: non-tender, supple Cardiovascular: normal rate, regular rhythm Respiratory/Chest: lungs clear, other - intubated Abdomen: normal bowel sounds, non tender, soft 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 Jul 18, 2017 18:58
[2017-07-18 20:12] LABS: BASOPHILS % (AUTO) 0.3 % (0.0-2.0); HEMATOCRIT 27.3 % (37.0-47.0); HEMOGLOBIN 8.5 G/DL (12.0-16.0); LYMPHOCYTES % (AUTO) 11.8 % (20.0-45.0); MEAN CORPUSCULAR VOLUME 86 FL (80-99); MONOCYTES % (AUTO) 5.6 % (1.0-10.0); NEUTROPHILS % (AUTO) 82.3 % (45.0-75.0); PLATELET COUNT 200 K/UL (150-450); RED BLOOD COUNT 3.18 M/UL (4.20-5.40); WHITE BLOOD COUNT 11.6 K/UL (4.8-10.8)
[2017-07-18] MEDS: Dyna-Hex 2% Top Sol 2oz TOPIC SCH (20:20)
[2017-07-18] MEDS: Iron Sucrose 100 MG in NS 55 ML IV SCH (20:41)
[2017-07-18] MEDS: Vancomycin 500mg/D5W 110ml IVPB SCH ×2 (20:42)
--- NOTE | 2017-07-18 21:01 | Consultation ---
DATE OF CONSULTATION: 07/18/2017 INFECTIOUS DISEASE CONSULTATION CONSULTING PHYSICIAN: Jean-Claude Rosado M.D. ATTENDING PHYSICIAN: Mac Mendoza M.D. REFERRING PHYSICIAN: Dr. Boateng. REASON FOR CONSULTATION: Sepsis, fevers, leukocytosis, pneumonia, UTI. CHIEF COMPLAINT: The patient's chief complaint coming into the hospital is altered mental status, respiratory failure, requiring intubation, hypoxia, respiratory distress, sepsis, elevated white count, fevers. HISTORY OF PRESENT ILLNESS: This is an 87-year-old female, who comes in to [facility] and was noted that she was hypoxic with fevers and sepsis and leukocytosis. The patient required intubation and is currently in the ICU, but is not on pressors, but is on a vent. Because of the sepsis, pneumonia, and UTI, Infectious Disease consultation was requested. The patient will be placed on antibiotics, amikacin, meropenem, azithromycin, and vancomycin. Final cultures are pending. Preliminary cultures show that the patient does have a UTI secondary to Staph aureus and gram negatives and also, unclear if the patient's G-tube infection and pneumonia. MAR was noted. Orders were noted. Notes and records were reviewed. Case discussed with the pharmacy and the RN. PAST MEDICAL HISTORY: The patient has a past medical history of ischemic cardiomyopathy, history of CVA, history of CAD, history of PCI, LAD, history of atrial fibrillation, history of Alzheimer's and dementia, history of PEG and dysphagia, history of gastropathy, history of hypertension, she has anemia, history of cardiac disease. No history of diabetes mentioned. MEDICATIONS: Upon reviewing the MAR, the patient is on following medications. She is on sodium chloride, amikacin, vancomycin, meropenem, azithromycin, atorvastatin, Lipitor, Lopressor, pantoprazole, heparin, aspirin. Amikacin and vancomycin per pharmacy dosing. Azithromycin is oral, on the G-tube. Albuterol treatments, acetaminophen, morphine sulfate, Zofran, lorazepam, norepinephrine. Outside medications are noted and reconciled. ALLERGIES: No known drug allergies. FAMILY HISTORY: Noncontributory. No mention of exposure to tuberculosis or canrcer. SOCIAL HISTORY: No mention of smoking, alcohol, or drug abuse. REVIEW OF SYSTEMS: CONSTITUTIONAL: The patient came in with fevers. currently does not have fevers. She is not on pressors. HEAD AND NECK: She is orally intubated. CARDIAC: Not on pressors. GASTROINTESTINAL: No nausea, vomiting, or diarrhea. She has a recent redness around the G-tube site. She does have a G-tube in place. GENITOURINARY: She has a Bryant. PULMONARY: On vent. Some secretions. SKIN: No new rash noted. Wound were noted. NEUROLOGIC: No seizures. She has generalized weakness. She is a poor historian. PHYSICAL EXAMINATION: VITAL SIGNS: Temperature is 98.0, pulse rate 66, respiratory rate 20, blood pressure 119/50, saturation 100%, FiO2 35%. T-max was 102.6. GENERAL: Lethargic. Actually opens her eyes more today. HEAD AND NECK: Oral exam, no thrush. Eye exam, no icterus. Normocephalic. No facial droop. No neck stiffness. Neck is supple. HEART: Regular. No gallop or murmur. No pressors. ABDOMEN: Soft. Positive bowel sounds. G-tube site looks maybe some slight redness at the site, but no drainage. LUNGS: Bilateral rhonchi. Possible rales. SKIN: No rash. MUSCULOSKELETAL: No effusion. Legs are without cellulitis. PERIPHERAL VASCULAR: No cyanosis or gangrene. RECTAL: Deferred. GENITOURINARY: She has a Bryant. Urine is cloudy. LINES: Line sites without phlebitis. NEUROLOGIC: Generalized weakness. Opens eyes. More responsive today. LABORATORY DATA: Laboratory data is as follows. White count on admission 15.7, went up to 18.3, currently is 12.5, hemoglobin 8.2, and platelet count 217. Creatinine is normal at 0.5. LFTs were noted. Cultures, G-tube culture grew out gram-negative organisms. MRSA screen is positive. Urine culture grew out Staph aureus and gram negative. Blood culture is negative. Sputum culture is pending. C. diff is negative. IMAGING STUDIES: Chest x-ray shows the following, shows bilateral effusions that are decreased and it shows persistent bibasilar consolidation or atelectasis noted and reviewed. ASSESSMENT AND PLAN: 1. The patient has a Staphylococcus aureus and gram-negative urinary tract infection with sepsis, fevers, leukocytosis, systemic inflammatory response syndrome criteria. The patient also could have had an aspiration, healthcare acquired pneumonia versus community-acquired pneumonia. She is at high risk for aspiration pneumonia with altered mental status. It is unclear if she has a gram-negative gastrostomy tube infection. Clostridium difficile was negative. Continue meropenem, amikacin, azithromycin, and vancomycin. Check cultures and laboratories. Follow chest x-ray. Continue to monitor respiratory status and pressure status. Continue ICU care. Case discussed with RN at length. 2. The patient has severe anemia. 3. Respiratory failure, on ventilator. 4. Dysphagia, on gastrostomy tube. 5. Skin care protocol. Wounds were reviewed. They do not look acutely infected. 6. Hypertension. 7. Cardiomyopathy. 8. CVA. 9. Coronary artery disease. 10. Percutaneous coronary intervention of the left anterior descending. 11. Atrial fibrillation. 12. Alzheimer's. 13. Dementia. 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 15. Blood pressure treatment for hypertension per primary. 16. Allergies are negative. 17. Family number is noncontributory. 18. Social history is negative. 19. MAR was noted. 20. Case was discussed with RN. 21. Continue treatment per primary consultants. Jean-Claude Rosado M.D. DR: Dany JOB#: [id number] CC:
[2017-07-19] VITALS (24 sets, daily range): BP systolic 97–159; BP diastolic 36–95
--- NOTE | 2017-07-19 00:30 | Cardiology Progress Note ---
Assessment/Plan Assessment/Plan LATE ENTRY PROGRESS NOTE DATE OF SERVICE: 07/18/17 TIME: 19:25 1. Elw-XN-rjekledcs myocardial infarction, EKG from today showed normal sinus rhythm with low-voltage QRS, but no ST elevation and left bundle-branch block has already been resolved. Her echocardiogram also showed ejection fraction of 50% with diastolic dysfunction. Continue medical therapy. Her echocardiogram, however, showed normal left ventricular systolic function. 2. Respiratory failure. Ejection fraction is normal. She has only mild diastolic dysfunction, but the BNP is elevated. This is likely due to the patient's sepsis. Questionable urinary tract infection versus pneumonia versus Clostridium difficile. 3. Respiratory failure, on the ventilator, under the management of Dr. Nobles. Subjective Subjective Sinus rhythm at 65. Objective Last 24 Hour Vital Signs Date Time Temp Pulse Resp B/P (MAP) Pulse Ox O2 Delivery O2 Flow Rate FiO2 07/18/17 23:00 65 17 35 07/18/17 22:15 102/39 07/18/17 22:00 65 19 110/43 100 Mechanical Ventilator 35 07/18/17 21:30 73 20 35 07/18/17 21:00 70 19 140/56 100 Mechanical Ventilator 35 07/18/17 20:44 68 140/66 07/18/17 20:00 98.0 70 19 140/66 100 Mechanical Ventilator 35 07/18/17 19:30 64 18 35 07/18/17 19:00 69 17 120/49 97 Mechanical Ventilator 35 07/18/17 18:00 96 27 121/57 100 Mechanical Ventilator 35 07/18/17 17:00 66 19 136/54 98 Mechanical Ventilator 35 07/18/17 16:30 68 18 35 07/18/17 16:00 98.1 72 20 120/56 98 Mechanical Ventilator 35 07/18/17 16:00 65 07/18/17 16:00 35 07/18/17 15:00 63 18 128/53 100 Mechanical Ventilator 35 07/18/17 14:40 62 18 35 07/18/17 14:00 84 24 123/56 100 Mechanical Ventilator 35 07/18/17 13:00 62 17 137/47 100 Mechanical Ventilator 35 07/18/17 12:51 65 19 35 07/18/17 12:00 56 07/18/17 12:00 35 07/18/17 12:00 98.0 66 20 119/50 100 Mechanical Ventilator 35 07/18/17 11:00 59 17 114/44 100 Mechanical Ventilator 35 07/18/17 10:30 61 17 35 07/18/17 10:00 62 18 128/53 100 Mechanical Ventilator 35 07/18/17 09:00 67 18 118/49 100 Mechanical Ventilator 35 07/18/17 08:38 68 18 35 07/18/17 08:30 65 156/62 07/18/17 08:00 98.4 64 18 120/49 100 Mechanical Ventilator 35 07/18/17 08:00 83 07/18/17 08:00 35 07/18/17 07:14 63 17 35 07/18/17 07:00 62 25 120/51 100 Mechanical Ventilator 35 07/18/17 06:00 83 25 102/42 100 Mechanical Ventilator 35 07/18/17 05:05 67 17 35 07/18/17 05:00 84 26 139/42 100 Mechanical Ventilator 35 07/18/17 04:00 98.0 88 28 130/44 100 Mechanical Ventilator 35 07/18/17 04:00 64 07/18/17 04:00 35 07/18/17 03:00 86 19 137/44 100 Mechanical Ventilator 35 07/18/17 02:50 68 19 35 07/18/17 02:00 68 19 119/41 100 Mechanical Ventilator 35 07/18/17 01:17 65 19 35 07/18/17 01:00 66 19 117/45 100 Mechanical Ventilator 35 2D Echo: LVEF 50%, RVSP 28 mmHg, Grade I LVDD, Mild LVH Laboratory Tests Test 07/18/17 04:30 07/18/17 08:30 07/18/17 12:15 07/18/17 19:42 White Blood Count 14.9 K/UL (4.8-10.8) H 12.5 K/UL (4.8-10.8) H 11.6 K/UL (4.8-10.8) H Red Blood Count 2.90 M/UL (4.20-5.40) L 3.07 M/UL (4.20-5.40) L 3.18 M/UL (4.20-5.40) L Hemoglobin 8.2 G/DL (12.0-16.0) L 8.2 G/DL (12.0-16.0) L 8.5 G/DL (12.0-16.0) L Hematocrit 24.9 % (37.0-47.0) L 26.4 % (37.0-47.0) L 27.3 % (37.0-47.0) L Mean Corpuscular Volume 86 FL (80-99) 86 FL (80-99) 86 FL (80-99) Mean Corpuscular Hemoglobin 28.5 PG (27.0-31.0) 26.8 PG (27.0-31.0) L 26.9 PG (27.0-31.0) L Mean Corpuscular Hemoglobin Concent 33.2 G/DL (32.0-36.0) 31.2 G/DL (32.0-36.0) L 31.3 G/DL (32.0-36.0) L Red Cell Distribution Width 19.6 % (11.6-14.8) H 19.3 % (11.6-14.8) H 19.0 % (11.6-14.8) H Platelet Count 199 K/UL (150-450) 217 K/UL (150-450) 200 K/UL (150-450) Mean Platelet Volume 11.1 FL (6.5-10.1) H 9.2 FL (6.5-10.1) 9.7 FL (6.5-10.1) Neutrophils (%) (Auto) 84.1 % (45.0-75.0) H 84.5 % (45.0-75.0) H 82.3 % (45.0-75.0) H Lymphocytes (%) (Auto) 10.2 % (20.0-45.0) L 10.9 % (20.0-45.0) L 11.8 % (20.0-45.0) L Monocytes (%) (Auto) 5.4 % (1.0-10.0) 4.4 % (1.0-10.0) 5.6 % (1.0-10.0) Eosinophils (%) (Auto) 0.0 % (0.0-3.0) 0.0 % (0.0-3.0) 0.0 % (0.0-3.0) Basophils (%) (Auto) 0.2 % (0.0-2.0) 0.2 % (0.0-2.0) 0.3 % (0.0-2.0) Reticulocyte Count 1.3 % (0.0-2.0) Prothrombin Time 11.4 SEC (9.30-11.50) Prothromb Time International Ratio 1.1 (0.9-1.1) Activated Partial Thromboplast Time 71 SEC (23-33) H Sodium Level 139 MMOL/L (136-145) Potassium Level 4.1 MMOL/L (3.5-5.1) Chloride Level 108 MMOL/L (98-107) H Carbon Dioxide Level 26 MMOL/L (21-32) Anion Gap 5 mmol/L (5-15) Blood Urea Nitrogen 16 mg/dL (7-18) Creatinine 0.5 MG/DL (0.55-1.30) L Estimat Glomerular Filtration Rate mL/min (>60) Glucose Level 84 MG/DL (74-106) Calcium Level 7.2 MG/DL (8.5-10.1) L Iron Level 8 ug/dL (50-175) L Total Iron Binding Capacity 187 ug/dL (250-450) L Percent Iron Saturation 4 % (15-50) L Unsaturated Iron Binding 179 ug/dL (112-346) Ferritin 101 NG/ML (8-388) Troponin I 8.493 ng/mL (0.000-0.056) Pro-B-Type Natriuretic Peptide 21965 pg/mL (0-125) H Triglycerides Level 88 MG/DL (30-150) Cholesterol Level 95 MG/DL (< 200) LDL Cholesterol 41 mg/dL (<100) HDL Cholesterol 41 MG/DL (40-60) Cholesterol/HDL Ratio 2.3 (3.3-4.4) L Vitamin B12 Level 593 PG/ML (193-986) Folate 36.3 NG/ML (8.6-58.9) Thyroid Stimulating Hormone (TSH) 4.084 uiU/mL (0.358-3.740) Free Thyroxine 1.24 NG/DL (0.76-1.46) Arterial Blood pH 7.458 (7.350-7.450) Arterial Blood Partial Pressure CO2 33.4 mmHg (35.0-45.0) L Arterial Blood Partial Pressure O2 132.5 mmHg (75.0-100.0) H Arterial Blood HCO3 23.1 mmol/L (22.0-26.0) Arterial Blood Oxygen Saturation 98.0 % (92.0-98.0) Arterial Blood Base Excess -0.5 Jamie Test Positive Microbiology Date/Time Source Procedure Growth Status 07/16/17 19:00 Blood Blood Culture - Preliminary NO GROWTH AFTER 24 HOURS Resulted 07/16/17 18:50 Blood Blood Culture - Preliminary NO GROWTH AFTER 24 HOURS Resulted 07/17/17 01:20 Wound Gram Stain - Final Resulted 07/17/17 01:20 Wound Culture - Preliminary Gram Negative Bacillus 1 Gram Negative Bacillus 2 Resulted 07/17/17 11:00 Sputum Gram Stain - Final Resulted 07/17/17 11:00 Sputum Sputum Culture Pending Resulted 07/16/17 19:30 Nasal Nares MRSA Culture - Final Staphylococcus Aureus - Mrsa Complete 07/17/17 08:00 Stool Clostridium difficile Toxin Assay - Final Complete 07/16/17 19:28 Urine,Clean Catch Urine Culture - Preliminary Gram Negative Anjum Staphylococcus Aureus Resulted Objective HEAD AND NECK: Shows no JVD. LUNGS: Decreased breath sounds. Coarse rhonchi. She is orally intubated. CARDIOVASCULAR: Shows regular S1 and S2 with no gallop. ABDOMEN: Soft. EXTREMITIES: No pitting edema. CHELSIE CHAIDEZ Jul 19, 2017 00:30
[2017-07-19] MEDS: Pantoprazole 80 MG in NS 250 ML IV SCH ×3 (01:07→20:14)
[2017-07-19 04:44] LABS: BASOPHILS % (AUTO) 0.2 % (0.0-2.0); EOSINOPHILS % (AUTO) 0.1 % (0.0-3.0); HEMATOCRIT 26.6 % (37.0-47.0); HEMOGLOBIN 8.4 G/DL (12.0-16.0); LYMPHOCYTES % (AUTO) 12.2 % (20.0-45.0); MEAN CORPUSCULAR VOLUME 86 FL (80-99); MONOCYTES % (AUTO) 4.9 % (1.0-10.0); NEUTROPHILS % (AUTO) 82.6 % (45.0-75.0); PLATELET COUNT 201 K/UL (150-450); RED BLOOD COUNT 3.09 M/UL (4.20-5.40); RED CELL DISTRIBUTION WIDTH 19.7 % (11.6-14.8); WHITE BLOOD COUNT 9.3 K/UL (4.8-10.8)
[2017-07-19 04:57] LABS: ANION GAP 6 mmol/L (5-15); BLOOD UREA NITROGEN 11 mg/dL (7-18); CALCIUM 7.4 MG/DL (8.5-10.1); CARBON DIOXIDE 25 MMOL/L (21-32); CHLORIDE 109 MMOL/L (98-107); CREATININE 0.5 MG/DL (0.55-1.30); POTASSIUM 3.6 MMOL/L (3.5-5.1); SODIUM 140 MMOL/L (136-145)
--- NOTE | 2017-07-19 08:00 | Pulmonolgy Critical Care Note ---
Critical Care - Asmt/Plan Assessment/Plan: ASSESSMENT acute hypoxemic respiratory failure requiring intubation sepsis with shock PNA UTI with Staph aureus NSTEMI LBBB acute toxic metabolic encephalopathy on chronic dementia ( likely due to to sepsis, NSTEMI) acute anemia requiring blood transfusion lactic acidosis transaminitis severe protein calorie malnutrition dehydration PLAN OF CARE ICU vent support pulmonary toilet ABG with hypoxemia titrate FiO2 to keep sat above 92% fup with daily CXR and ABG not ready for weaning yet today abx, ID follows urine cx + Staph ( GNB small colony count), sputum cx pending, blood cx prel negative, stool C dif negative heparin gtt cardio follows serial troponin c/w NSTEMI not stable for cardiac cath troponin trending down, still above 8 ECHO with EF 50% and RVSP of 28 s/p blood transfusion HH at baseline GI follows PPI gtt monitor HH, with goal to keep Hgb above 8 anemia w/up c/w anemia of chronic disease and has iron deficiency continue Venofer x5 doses gastric lavage by GI 07/17 with evidence of GI bleeding per GI will need EGD when stable with prior cardiac clearance TF, monitor tolerance , strict aspiration precautions decrease IVF to 50 trend LFT likely due to sepsis and shock pain management bowel regimen venous Duplex BLE case discussed and evaluated by supervising physician Critical Care - Objective Last 24 Hour Vital Signs Date Time Temp Pulse Resp B/P (MAP) Pulse Ox O2 Delivery O2 Flow Rate FiO2 07/19/17 07:00 60 20 126/50 98 Mechanical Ventilator 35 07/19/17 06:48 73 22 35 07/19/17 06:00 67 20 130/53 100 Mechanical Ventilator 35 07/19/17 05:24 72 19 35 07/19/17 05:00 68 21 132/51 97 Mechanical Ventilator 35 07/19/17 04:00 59 07/19/17 04:00 35 07/19/17 04:00 97.8 63 16 140/56 100 Mechanical Ventilator 35 07/19/17 03:30 61 16 35 07/19/17 03:00 63 16 140/56 100 Mechanical Ventilator 35 07/19/17 02:00 59 16 147/56 100 Mechanical Ventilator 35 07/19/17 01:25 61 18 35 07/19/17 01:00 65 20 132/49 100 Mechanical Ventilator 35 07/19/17 00:00 65 07/19/17 00:00 98.0 65 18 136/50 100 Mechanical Ventilator 35 07/19/17 00:00 35 07/18/17 23:00 65 17 35 07/18/17 23:00 60 18 126/48 100 Mechanical Ventilator 35 07/18/17 22:15 102/39 07/18/17 22:00 65 19 110/43 100 Mechanical Ventilator 35 07/18/17 21:30 73 20 35 07/18/17 21:00 70 19 140/56 100 Mechanical Ventilator 35 07/18/17 20:44 68 140/66 07/18/17 20:00 98.0 70 19 140/66 100 Mechanical Ventilator 35 07/18/17 19:30 64 18 35 07/18/17 19:00 69 17 120/49 97 Mechanical Ventilator 35 07/18/17 18:00 96 27 121/57 100 Mechanical Ventilator 35 07/18/17 17:00 66 19 136/54 98 Mechanical Ventilator 35 07/18/17 16:30 68 18 35 07/18/17 16:00 98.1 72 20 120/56 98 Mechanical Ventilator 35 07/18/17 16:00 65 07/18/17 16:00 35 07/18/17 15:00 63 18 128/53 100 Mechanical Ventilator 35 07/18/17 14:40 62 18 35 07/18/17 14:00 84 24 123/56 100 Mechanical Ventilator 35 07/18/17 13:00 62 17 137/47 100 Mechanical Ventilator 35 07/18/17 12:51 65 19 35 07/18/17 12:00 56 07/18/17 12:00 35 07/18/17 12:00 98.0 66 20 119/50 100 Mechanical Ventilator 35 07/18/17 11:00 59 17 114/44 100 Mechanical Ventilator 35 07/18/17 10:30 61 17 35 07/18/17 10:00 62 18 128/53 100 Mechanical Ventilator 35 07/18/17 09:00 67 18 118/49 100 Mechanical Ventilator 35 07/18/17 08:38 68 18 35 17 08:30 65 156/62 07/18/17 08:00 98.4 64 18 120/49 100 Mechanical Ventilator 35 07/18/17 08:00 83 07/18/17 08:00 35 Objective: Condition: critical, awake HEENT: atraumatic, normocephalic, OP with ET in place, NGT with TF Lungs: clear Heart: HR/BP stable Abdomen: soft, non-tender Extremities: no C/C/E Micro: Microbiology Date/Time Source Procedure Growth Status 07/16/17 19:00 Blood Blood Culture - Preliminary NO GROWTH AFTER 48 HOURS Resulted 07/16/17 18:50 Blood Blood Culture - Preliminary NO GROWTH AFTER 48 HOURS Resulted 07/17/17 01:20 Wound Gram Stain - Final Resulted 07/17/17 01:20 Wound Culture - Preliminary Gram Negative Bacillus 1 Gram Negative Bacillus 2 Resulted 07/17/17 11:00 Sputum Gram Stain - Final Resulted 07/17/17 11:00 Sputum Sputum Culture Pending Resulted 07/16/17 19:30 Nasal Nares MRSA Culture - Final Staphylococcus Aureus - Mrsa Complete 07/17/17 08:00 Stool Clostridium difficile Toxin Assay - Final Complete 07/16/17 19:28 Urine,Clean Catch Urine Culture - Preliminary Gram Negative Anjum Staphylococcus Aureus Resulted Critical Care - Subjective ROS Limited/Unobtainable: Yes Interval Events: remains intubated on heparin gtt troponin trending down,still significantly elevated - 8.493 HH at baseline, no trend down Condition: critical IV Access: peripheral EKG Rhythm: Sinus Rhythm FI02: 35 Vent Support Breath Rate: 16 Vent Support Mode: AC Vent Tidal Volume: 500 Sputum Amount: Small PEEP: 5.0 PIP: 26 Fluids: NS at 75 cc/hr Drips: Heparin gtt at 11.49 ml/hr, protonix gtt at 25 ml/hr CXR: CXR 07/19 - : ET tube unchanged in position. Heart size and mediastinal contours are stable. There is evidence of coronary arterial stenting. There is no significant interval change in appearance of the lungs and pleura compared to exam one day prior. No acute osseous abnormality seen. ET-Tube: 7.5 ET Position: 22 Patino ([facility]),Fariha TATUM Jul 19, 2017 08:00
[2017-07-19] MEDS: Azithromycin 250mg tab ORAL SCH (08:52)
[2017-07-19] MEDS: Metoprolol Tartrate 12.5mg TAB ORAL SCH ×2 (08:52→21:22)
[2017-07-19] MEDS: Meropenem 1 GM in NS 55 ML IVPB SCH ×2 (08:52→21:22)
[2017-07-19] MEDS: Aspirin Baby 81mg NG SCH (08:56)
[2017-07-19] MEDS ORDERED: Albuterol/Ipratropium 3ml neb HHN PRN (12:00)
[2017-07-19] MEDS: Amikacin 700 MG in NS 110 ML IV SCH (12:24)
[2017-07-19 12:37] LABS: BASOPHILS % (AUTO) 0.4 % (0.0-2.0); HEMATOCRIT 27.6 % (37.0-47.0); HEMOGLOBIN 8.7 G/DL (12.0-16.0); LYMPHOCYTES % (AUTO) 13.4 % (20.0-45.0); MEAN CORPUSCULAR VOLUME 86 FL (80-99); MONOCYTES % (AUTO) 5.5 % (1.0-10.0); NEUTROPHILS % (AUTO) 80.7 % (45.0-75.0); PLATELET COUNT 207 K/UL (150-450); RED BLOOD COUNT 3.21 M/UL (4.20-5.40); RED CELL DISTRIBUTION WIDTH 19.2 % (11.6-14.8); WHITE BLOOD COUNT 9.4 K/UL (4.8-10.8)
--- NOTE | 2017-07-19 13:14 | Cardiology Report ---
APPROVED REPORT EXAM: Two-dimensional and M-mode echocardiogram with Doppler and color Doppler. INDICATION Abnormal cardiac function M-Mode DIMENSIONS IVSd0.9 (0.7-1.1cm)Left Atrium (MM)4.4 (1.6-4.0cm) LVDd3.7 (3.5-5.6cm)Aortic Root2.4 (2.0-3.7cm) PWd0.9 (0.7-1.1cm)Aortic Cusp Exc.1.0 (1.5-2.0cm) IVSs1.5 cm LVDs2.8 (2.5-4.0cm) PWs0.8 cm Technically difficult study due to poor acoustical windows. Apical views are not well visualized due to GI- tube . Normal left ventricular chamber size. Global left ventricular hypokinesis. Left ventricular ejection fraction estimated to be 45 %. No evidence of left ventricular hypertrophy. Small hemodynamically plural effusion Mild Left atrial enlargement. Right cardiac chamber sizes are within normal limits. Aortic valve calcification with decreased cusp excursion c/w mild aortic stenosis. Heavy calcification of mitral valve leaflets with normal excursion. Mitral annulus and aortic root calcification. Pulmonic valve not well visualized. Normal tricuspid valve structure. IVC at 1.9 cm without physiologic collapse . A color flow and spectral Doppler study was performed and revealed: Trace to mild aortic regurgitation. Peak aortic valve gradient of 16 mm Hg and a mean of 8 mmHg. Aortic valve area 1.6 cm2 calculated by continuity equation suggestive of mild aortic stenosis. Trace mitral regurgitation. Mitral diastolic velocities suggest reduced left ventricular relaxation c/w mild LV diastolic dysfunction (Grade I ) Mild tricuspid regurgitation. Tricuspid systolic velocities suggests peak right ventricular systolic pressure of 28 mmHg No Pulmonic regurgitation present.
--- NOTE | 2017-07-19 13:27 | Diagnostic Imaging Report ---
Indication: Dyspnea Technique: XRAY Chest 1v Comparison: 07/18/2017 Findings: ET tube unchanged in position. Heart size and mediastinal contours are stable. There is evidence of coronary arterial stenting. There is no significant interval change in appearance of the lungs and pleura compared to exam one day prior. No acute osseous abnormality seen. Impression: No significant interval change in the appearance of the heart and lungs compared to one day prior.
--- NOTE | 2017-07-19 14:13 | General Progress Note ---
Assessment/Plan Assessment/Plan Assessment - respiratory failure - dysphagia, s/p prior GJ tube - UGIB - no plans for EGD at this time due to ND - NSTEMI - AMS - Anemia Recommendations - Continue J tube feeds - monitor H&H closely - cardiology f/u - PPI Subjective Allergies: Coded Allergies: No Known Allergies (Unverified , 05/25/13) Subjective seen in ICU non communicative discussed with RN TF started this am Objective Last 24 Hour Vital Signs Date Time Temp Pulse Resp B/P (MAP) Pulse Ox O2 Delivery O2 Flow Rate FiO2 07/19/17 13:00 60 16 121/52 100 Mechanical Ventilator 40 07/19/17 12:34 75 23 40 07/19/17 12:00 64 07/19/17 12:00 98.1 66 16 123/41 99 Mechanical Ventilator 40 07/19/17 11:19 69 25 40 07/19/17 11:00 54 16 120/43 100 Mechanical Ventilator 40 07/19/17 10:00 55 16 109/40 99 Mechanical Ventilator 40 07/19/17 09:26 64 18 40 07/19/17 09:00 67 17 114/64 99 Mechanical Ventilator 40 07/19/17 08:52 67 159/95 07/19/17 08:40 40 07/19/17 08:00 97.6 70 20 159/95 99 Mechanical Ventilator 35 07/19/17 08:00 35 07/19/17 08:00 62 07/19/17 07:00 60 20 126/50 98 Mechanical Ventilator 35 07/19/17 06:48 73 22 35 07/19/17 06:00 67 20 130/53 100 Mechanical Ventilator 35 07/19/17 05:24 72 19 35 07/19/17 05:00 68 21 132/51 97 Mechanical Ventilator 35 07/19/17 04:00 59 07/19/17 04:00 35 07/19/17 04:00 97.8 63 16 140/56 100 Mechanical Ventilator 35 07/19/17 03:30 61 16 35 07/19/17 03:00 63 16 140/56 100 Mechanical Ventilator 35 07/19/17 02:00 59 16 147/56 100 Mechanical Ventilator 35 07/19/17 01:25 61 18 35 07/19/17 01:00 65 20 132/49 100 Mechanical Ventilator 35 07/19/17 00:00 65 07/19/17 00:00 98.0 65 18 136/50 100 Mechanical Ventilator 35 07/19/17 00:00 35 07/18/17 23:00 65 17 35 07/18/17 23:00 60 18 126/48 100 Mechanical Ventilator 35 07/18/17 22:15 102/39 07/18/17 22:00 65 19 110/43 100 Mechanical Ventilator 35 07/18/17 21:30 73 20 35 07/18/17 21:00 70 19 140/56 100 Mechanical Ventilator 35 07/18/17 20:44 68 140/66 07/18/17 20:00 98.0 70 19 140/66 100 Mechanical Ventilator 35 07/18/17 19:30 64 18 35 07/18/17 19:00 69 17 120/49 97 Mechanical Ventilator 35 07/18/17 18:00 96 27 121/57 100 Mechanical Ventilator 35 07/18/17 17:00 66 19 136/54 98 Mechanical Ventilator 35 07/18/17 16:30 68 18 35 07/18/17 16:00 98.1 72 20 120/56 98 Mechanical Ventilator 35 07/18/17 16:00 65 07/18/17 16:00 35 07/18/17 15:00 63 18 128/53 100 Mechanical Ventilator 35 07/18/17 14:40 62 18 35 Intake and Output 07/19/17 07/20/17 19:00 07:00 Intake Total 580.45 ml Output Total 150 ml Balance 430.45 ml IV Total 430.45 ml Tube Feeding 100 ml Other 50 ml Output Urine Total 150 ml # Bowel Movements 1 Laboratory Tests 07/18/17 19:42: White Blood Count 11.6H, Red Blood Count 3.18L, Hemoglobin 8.5L, Hematocrit 27.3L, Mean Corpuscular Volume 86, Mean Corpuscular Hemoglobin 26.9L, Mean Corpuscular Hemoglobin Concent 31.3L, Red Cell Distribution Width 19.0H, Platelet Count 200, Mean Platelet Volume 9.7, Neutrophils (%) (Auto) 82.3H, Lymphocytes (%) (Auto) 11.8L, Monocytes (%) (Auto) 5.6, Eosinophils (%) (Auto) 0.0, Basophils (%) (Auto) 0.3 07/19/17 03:55: Sodium Level 140, Potassium Level 3.6, Chloride Level 109H, Carbon Dioxide Level 25, Anion Gap 6, Blood Urea Nitrogen 11, Creatinine 0.5L, Estimat Glomerular Filtration Rate , Glucose Level 77, Calcium Level 7.4L 07/19/17 04:10: White Blood Count 9.3, Red Blood Count 3.09L, Hemoglobin 8.4L, Hematocrit 26.6L , Mean Corpuscular Volume 86, Mean Corpuscular Hemoglobin 27.0, Mean Corpuscular Hemoglobin Concent 31.5L, Red Cell Distribution Width 19.7H, Platelet Count 201, Mean Platelet Volume 10.2H, Neutrophils (%) (Auto) 82.6H, Lymphocytes (%) (Auto) 12.2L, Monocytes (%) (Auto) 4.9, Eosinophils (%) (Auto) 0.1, Basophils (%) (Auto) 0.2, Activated Partial Thromboplast Time 69H 07/19/17 08:10: Arterial Blood pH 7.402, Arterial Blood Partial Pressure CO2 36.1, Arterial Blood Partial Pressure O2 55.3L, Arterial Blood HCO3 22.0, Arterial Blood Oxygen Saturation 86.5L, Arterial Blood Base Excess -2.5, Jamie Test Positive 07/19/17 12:00: White Blood Count 9.4, Red Blood Count 3.21L, Hemoglobin 8.7L, Hematocrit 27.6L , Mean Corpuscular Volume 86, Mean Corpuscular Hemoglobin 27.0, Mean Corpuscular Hemoglobin Concent 31.3L, Red Cell Distribution Width 19.2H, Platelet Count 207, Mean Platelet Volume 10.8H, Neutrophils (%) (Auto) 80.7H, Lymphocytes (%) (Auto) 13.4L, Monocytes (%) (Auto) 5.5, Eosinophils (%) (Auto) 0.0, Basophils (%) (Auto) 0.4 Height (Feet): 5 Height (Inches): 2.00 Weight (Pounds): 110 Objective Thin WW NCAT supple CTA RR Soft , flat, (+) GJ tube no edema BIENVENIDO DORADO Jul 19, 2017 14:13
--- NOTE | 2017-07-19 14:35 | Cardiology Report ---
APPROVED REPORT EKG Measurement Heart [id number] Normal sinus rhythm Low voltage QRS Borderline ECG
--- NOTE | 2017-07-19 14:42 | Cardiology Report ---
APPROVED REPORT EKG Measurement Heart [id number] Sinus tachycardia Left axis deviation Left bundle branch block Abnormal ECG
[2017-07-19] MEDS: LORazepam Inj 2mg/ml 1ml IV PRN (17:04)
[2017-07-19] MEDS ORDERED: NS 500ML ONE (17:37)
[2017-07-19] MEDS ORDERED: Tubing IV Secondary IV ONE (17:37)
[2017-07-19] MEDS ORDERED: Zemuron 50mg/5ml Inj IV ONE (18:01)
[2017-07-19] MEDS ORDERED: Etomidate 40mg/20ml Inj IV ONE (18:01)
--- NOTE | 2017-07-19 18:26 | General Progress Note ---
Assessment/Plan Problem List: (1) Pneumonia ICD Codes: J18.9 - Pneumonia, unspecified organism SNOMED: 915885852, 068480435 Qualifiers: Qualified Codes: J18.1 - Lobar pneumonia, unspecified organism (2) Elevated troponin ICD Codes: R74.8 - Abnormal levels of other serum enzymes SNOMED: 285021315, 395066466 (3) Anemia ICD Codes: D64.9 - Anemia, unspecified SNOMED: 435471605 (4) CAD s/p PCI (5) Alzheimer's dementia ICD Codes: G30.9 - Alzheimer's disease, unspecified SNOMED: 26892877 (6) paroxsymal atrial fibrillation (7) Lactic acid acidosis ICD Codes: E87.2 - Acidosis SNOMED: 64810673 (8) Acute respiratory failure with hypoxia and hypercapnia ICD Codes: J96.01 - Acute respiratory failure with hypoxia; J96.02 - Acute respiratory failure with hypercapnia SNOMED: 65146335, 76980951, 822458607 (9) HCAP vs Aspiration pneumonia (10) UTI (urinary tract infection) ICD Codes: N39.0 - Urinary tract infection, site not specified SNOMED: 69374708 (11) Acute on chronic anemia (12) Failure to thrive SNOMED: 39178645 (13) NSTEMI (non-ST elevated myocardial infarction) ICD Codes: I21.4 - Non-ST elevation (NSTEMI) myocardial infarction SNOMED: 602334837 Status: progressing Assessment/Plan Continue in ICU Pulm, cardiology, ID, GI consulted, appreciate rec's Cont on vent and wean as tolerated. Will do weaning trial tomorrow per pulm Daily SBTs, sedation holiday Serial CXRs Cont empiric vanco, zosyn, azithro, amikacin per ID (07/16-) F/u cultures Trend CBC, BMP, lactate Trend trop/EKG --> trop downtrending F/u TTE --> 45% EF with mild LVDD Cont heparin gtt for now per cardiology for NSTEMI s/p 1 unit pRBC transfusion 07/17. Gastric lavage on 07/17 showed active bleeding Patient will eventually need EgD/colonoscopy to assess for GIB given acute drop in hemoglobin and positive FOBT. However, patient is unstable at the moment given NSTEMI/elevated trops. Continue PPi gtt Continue IV venofer Start G-tube feedings per GI Supportive care DVT Prophylaxis: SCD, heparin gtt Code Status: Full per discussion w/ pt's DPOA/daughter Hospital Classification Declaration: Based on this initial evaluation, and depending on the patient's clinical course, I anticipate that this patient will require hospitalization for 2-3 days for acute respiratory faiure, severe sepsis and close respiratory/hemodynamic monitoring. Disposition: Once the patient is stable to leave the hospital, I anticipate the patient will likely be discharged to the following environment: back to SNF I spent 70 minutes on this patient's case, and 40 minutes were dedicated to counseling and/or care coordination. Discussed with patient/family, nursing staff, SW/CM, ID, renal, pulm, cardiology regarding clinical status, treatment course, and disposition planning. Time of note may not reflect time of encounter. At the time of my involvement, the patient's condition was critical with high potential for and/or physiologic deterioration secondary to [] as delineated in the note above. On the above date of service, I spent a total of 45 minutes in the ICU evaluating, managing, and providing critical care services to this patient, including time spent documenting these activities, counseling patient/family, and coordinating care. Critical care services performed include: Telemetry Review Hemodynamic measurement interpretation Laboratory data review and interpretation Ventilator setting review, management, and adjustment Discussion of care plans with patient, family, and/or surrogate decision makers Discussion of patient's care with primary medical team, surgical team, and/or consulting service Decision to obtain further radiologic evaluation, after consideration of risk/ benefit ratio Review of most recent microbiology results with assessment and modification of antimicrobial coverage Discussion of patient's code status and further advancement towards the ultimate goals of care Plan outlined above discussed with patient/family, [employer], ICU team, and involved physicians/consultants. Time of note may not reflect time of encounter. Subjective Date patient seen: Jul 19, 2017 Allergies: Coded Allergies: No Known Allergies (Unverified , 05/25/13) Subjective intubated. alert and following commands unable to be weaned today started on IV venofer tube feeds to be started today continued on PPi gtt and heparin gtt Objective Last 24 Hour Vital Signs Date Time Temp Pulse Resp B/P (MAP) Pulse Ox O2 Delivery O2 Flow Rate FiO2 07/19/17 18:00 62 16 97/36 100 Mechanical Ventilator 40 07/19/17 17:01 113 25 40 07/19/17 17:00 84 26 156/76 100 Mechanical Ventilator 40 07/19/17 16:00 98.2 62 18 126/43 100 Mechanical Ventilator 40 07/19/17 16:00 63 07/19/17 16:00 40 07/19/17 15:26 61 17 40 07/19/17 15:00 57 19 122/44 100 Mechanical Ventilator 40 07/19/17 14:00 62 16 110/44 100 Mechanical Ventilator 40 07/19/17 13:00 60 16 121/52 100 Mechanical Ventilator 40 07/19/17 12:34 75 23 40 07/19/17 12:00 64 07/19/17 12:00 98.1 66 16 123/41 99 Mechanical Ventilator 40 07/19/17 11:19 69 25 40 07/19/17 11:00 54 16 120/43 100 Mechanical Ventilator 40 07/19/17 10:00 55 16 109/40 99 Mechanical Ventilator 40 07/19/17 09:26 64 18 40 07/19/17 09:00 67 17 114/64 99 Mechanical Ventilator 40 07/19/17 08:52 67 159/95 07/19/17 08:40 40 07/19/17 08:00 97.6 70 20 159/95 99 Mechanical Ventilator 35 07/19/17 08:00 35 07/19/17 08:00 62 07/19/17 07:00 60 20 126/50 98 Mechanical Ventilator 35 07/19/17 06:48 73 22 35 07/19/17 06:00 67 20 130/53 100 Mechanical Ventilator 35 07/19/17 05:24 72 19 35 07/19/17 05:00 68 21 132/51 97 Mechanical Ventilator 35 07/19/17 04:00 59 07/19/17 04:00 35 07/19/17 04:00 97.8 63 16 140/56 100 Mechanical Ventilator 35 07/19/17 03:30 61 16 35 07/19/17 03:00 63 16 140/56 100 Mechanical Ventilator 35 07/19/17 02:00 59 16 147/56 100 Mechanical Ventilator 35 07/19/17 01:25 61 18 35 07/19/17 01:00 65 20 132/49 100 Mechanical Ventilator 35 07/19/17 00:00 65 07/19/17 00:00 98.0 65 18 136/50 100 Mechanical Ventilator 35 07/19/17 00:00 35 07/18/17 23:00 65 17 35 07/18/17 23:00 60 18 126/48 100 Mechanical Ventilator 35 07/18/17 22:15 102/39 07/18/17 22:00 65 19 110/43 100 Mechanical Ventilator 35 07/18/17 21:30 73 20 35 07/18/17 21:00 70 19 140/56 100 Mechanical Ventilator 35 07/18/17 20:44 68 140/66 07/18/17 20:00 98.0 70 19 140/66 100 Mechanical Ventilator 35 07/18/17 19:30 64 18 35 07/18/17 19:00 69 17 120/49 97 Mechanical Ventilator 35 Intake and Output 07/19/17 07/20/17 19:00 07:00 Intake Total 1362.19 ml Output Total 270 ml Balance 1092.19 ml IV Total 1062.19 ml Tube Feeding 250 ml Other 50 ml Output Urine Total 270 ml # Bowel Movements 1 Laboratory Tests 07/18/17 19:42: White Blood Count 11.6H, Red Blood Count 3.18L, Hemoglobin 8.5L, Hematocrit 27.3L, Mean Corpuscular Volume 86, Mean Corpuscular Hemoglobin 26.9L, Mean Corpuscular Hemoglobin Concent 31.3L, Red Cell Distribution Width 19.0H, Platelet Count 200, Mean Platelet Volume 9.7, Neutrophils (%) (Auto) 82.3H, Lymphocytes (%) (Auto) 11.8L, Monocytes (%) (Auto) 5.6, Eosinophils (%) (Auto) 0.0, Basophils (%) (Auto) 0.3 07/19/17 03:55: Sodium Level 140, Potassium Level 3.6, Chloride Level 109H, Carbon Dioxide Level 25, Anion Gap 6, Blood Urea Nitrogen 11, Creatinine 0.5L, Estimat Glomerular Filtration Rate , Glucose Level 77, Calcium Level 7.4L 07/19/17 04:10: White Blood Count 9.3, Red Blood Count 3.09L, Hemoglobin 8.4L, Hematocrit 26.6L , Mean Corpuscular Volume 86, Mean Corpuscular Hemoglobin 27.0, Mean Corpuscular Hemoglobin Concent 31.5L, Red Cell Distribution Width 19.7H, Platelet Count 201, Mean Platelet Volume 10.2H, Neutrophils (%) (Auto) 82.6H, Lymphocytes (%) (Auto) 12.2L, Monocytes (%) (Auto) 4.9, Eosinophils (%) (Auto) 0.1, Basophils (%) (Auto) 0.2, Activated Partial Thromboplast Time 69H 07/19/17 08:10: Arterial Blood pH 7.402, Arterial Blood Partial Pressure CO2 36.1, Arterial Blood Partial Pressure O2 55.3L, Arterial Blood HCO3 22.0, Arterial Blood Oxygen Saturation 86.5L, Arterial Blood Base Excess -2.5, Jamie Test Positive 07/19/17 12:00: White Blood Count 9.4, Red Blood Count 3.21L, Hemoglobin 8.7L, Hematocrit 27.6L , Mean Corpuscular Volume 86, Mean Corpuscular Hemoglobin 27.0, Mean Corpuscular Hemoglobin Concent 31.3L, Red Cell Distribution Width 19.2H, Platelet Count 207, Mean Platelet Volume 10.8H, Neutrophils (%) (Auto) 80.7H, Lymphocytes (%) (Auto) 13.4L, Monocytes (%) (Auto) 5.5, Eosinophils (%) (Auto) 0.0, Basophils (%) (Auto) 0.4 Height (Feet): 5 Height (Inches): 2.00 Weight (Pounds): 110 General Appearance: alert, other - intubated Neck: non-tender, normal alignment, supple Cardiovascular: normal peripheral pulses, normal rate, regular rhythm Respiratory/Chest: chest wall non-tender, lungs clear, normal breath sounds, respiratory distress Abdomen: normal bowel sounds, non tender, soft, other - +PEG Neurologic: motor man II-XII grossly normal, no motor/sensory deficits, alert Yesenia Erazo N.P. Jul 19, 2017 18:26
[2017-07-19] MEDS: Dyna-Hex 2% Top Sol 2oz TOPIC SCH (20:12)
[2017-07-19 20:28] LABS: BASOPHILS % (AUTO) 0.2 % (0.0-2.0); HEMATOCRIT 27.5 % (37.0-47.0); HEMOGLOBIN 8.2 G/DL (12.0-16.0); LYMPHOCYTES % (AUTO) 15.6 % (20.0-45.0); MEAN CORPUSCULAR VOLUME 86 FL (80-99); MONOCYTES % (AUTO) 5.2 % (1.0-10.0); NEUTROPHILS % (AUTO) 78.9 % (45.0-75.0); PLATELET COUNT 196 K/UL (150-450); RED BLOOD COUNT 3.21 M/UL (4.20-5.40); RED CELL DISTRIBUTION WIDTH 19.1 % (11.6-14.8); WHITE BLOOD COUNT 7.8 K/UL (4.8-10.8)
[2017-07-19] MEDS: Iron Sucrose 100 MG in NS 55 ML IV SCH (21:21)
[2017-07-19] MEDS: Vancomycin 1gm in D5W 275ml IVPB SCH (23:04)
[2017-07-20] VITALS (24 sets, daily range): BP systolic 106–178; BP diastolic 4–85
[2017-07-20 06:07] LABS: BASOPHILS % (AUTO) 0.2 % (0.0-2.0); EOSINOPHILS % (AUTO) 0.2 % (0.0-3.0); HEMOGLOBIN 8.4 G/DL (12.0-16.0); LYMPHOCYTES % (AUTO) 19.4 % (20.0-45.0); MEAN CORPUSCULAR VOLUME 85 FL (80-99); MONOCYTES % (AUTO) 3.9 % (1.0-10.0); NEUTROPHILS % (AUTO) 76.3 % (45.0-75.0); PLATELET COUNT 203 K/UL (150-450); RED BLOOD COUNT 3.18 M/UL (4.20-5.40); RED CELL DISTRIBUTION WIDTH 19.1 % (11.6-14.8); WHITE BLOOD COUNT 7.4 K/UL (4.8-10.8)
[2017-07-20 06:26] LABS: ANION GAP 7 mmol/L (5-15); BLOOD UREA NITROGEN 10 mg/dL (7-18); CALCIUM 7.4 MG/DL (8.5-10.1); CARBON DIOXIDE 22 MMOL/L (21-32); CHLORIDE 109 MMOL/L (98-107); CREATININE 0.4 MG/DL (0.55-1.30); POTASSIUM 3.2 MMOL/L (3.5-5.1); SODIUM 138 MMOL/L (136-145)
[2017-07-20] MEDS: Pantoprazole 80 MG in NS 250 ML IV SCH ×2 (06:37→16:02)
[2017-07-20] MEDS: Heparin 25,000u/D5W 500ml 500 ML IV SCH ×2 (06:40→11:07)
[2017-07-20] MEDS ORDERED: Heparin Sod 1000 units/ml 10ml IV ONE (07:00)
[2017-07-20] MEDS: Metoprolol Tartrate 12.5mg TAB ORAL SCH ×2 (09:00→20:46)
[2017-07-20] MEDS: Aspirin Baby 81mg NG SCH (09:16)
[2017-07-20] MEDS: Meropenem 1 GM in NS 55 ML IVPB SCH (09:16)
[2017-07-20] MEDS: Azithromycin 250mg tab ORAL SCH (09:16)
--- NOTE | 2017-07-20 09:50 | Pulmonolgy Critical Care Note ---
Critical Care - Asmt/Plan Problems: (1) Ventilator dependent (2) Pneumonia (3) Elevated troponin (4) Septic shock (5) Demand ischemia of myocardium (6) Transaminitis (7) CVA (cerebral vascular accident) (8) Ischemic cardiomyopathy (9) Alzheimer's dementia (10) CAD s/p PCI (11) diffuse severe gastropathy (12) lives at snf (13) paroxsymal atrial fibrillation (14) Acute on chronic diastolic heart failure (15) NSTEMI (non-ST elevated myocardial infarction) (16) Failure to thrive (17) Functional quadriplegia (18) Generalized weakness (19) S/P percutaneous endoscopic gastrostomy (PEG) tube placement Assessment/Plan: -Optimize pulmonary hygiene/mobilize as tolerated -Place on PS 8, PEEP 5, calculate RSBI, check ABG in 30 min -Hold TF's in anticipation of possible extubation -PRN HHN's -Abx per ID -PPI gtt & IV Venofer, monitor for bleeding, F/U GI recs -[facility] -Monitor volumes --> hold IVF -ECG and trop pending, F/U cards recs -Wound care -FC. continue to discuss GOC D/W [employer] CC 45 Critical Care - Objective Last 24 Hour Vital Signs Date Time Temp Pulse Resp B/P (MAP) Pulse Ox O2 Delivery O2 Flow Rate FiO2 07/20/17 09:36 64 07/20/17 09:30 60 23 35 07/20/17 07:15 60 17 35 07/20/17 07:00 60 17 119/42 100 Mechanical Ventilator 40 07/20/17 06:00 69 21 136/57 100 Mechanical Ventilator 40 07/20/17 05:30 70 26 35 07/20/17 05:00 58 18 113/43 100 Mechanical Ventilator 40 07/20/17 04:00 77 07/20/17 04:00 98.2 77 23 132/71 100 Mechanical Ventilator 40 07/20/17 04:00 40 07/20/17 03:09 96 27 35 07/20/17 03:00 87 23 137/70 100 Mechanical Ventilator 40 07/20/17 02:00 95 22 139/73 99 Mechanical Ventilator 40 07/20/17 01:30 58 18 35 07/20/17 01:00 59 17 113/49 99 Mechanical Ventilator 40 07/20/17 00:00 60 12/18/17 00:00 98.3 60 16 106/42 100 Mechanical Ventilator 40 07/20/17 00:00 40 07/19/17 23:30 59 16 35 07/19/17 23:00 88 25 144/64 99 Mechanical Ventilator 40 07/19/17 22:15 106/47 07/19/17 22:00 62 16 116/43 98 Mechanical Ventilator 40 07/19/17 21:30 74 25 35 07/19/17 21:22 80 139/55 07/19/17 21:00 87 23 139/55 98 Mechanical Ventilator 40 07/19/17 20:00 76 07/19/17 20:00 98.6 76 19 128/64 99 Mechanical Ventilator 40 07/19/17 20:00 40 07/19/17 19:30 72 24 35 07/19/17 19:00 83 19 140/52 100 Mechanical Ventilator 40 07/19/17 18:00 62 16 97/36 100 Mechanical Ventilator 40 07/19/17 17:01 113 25 40 07/19/17 17:00 84 26 156/76 100 Mechanical Ventilator 40 07/19/17 16:00 98.2 62 18 126/43 100 Mechanical Ventilator 40 07/19/17 16:00 63 07/19/17 16:00 40 07/19/17 15:26 61 17 40 07/19/17 15:00 57 19 122/44 100 Mechanical Ventilator 40 07/19/17 14:00 62 16 110/44 100 Mechanical Ventilator 40 07/19/17 13:00 60 16 121/52 100 Mechanical Ventilator 40 07/19/17 12:34 75 23 40 07/19/17 12:00 64 07/19/17 12:00 98.1 66 16 123/41 99 Mechanical Ventilator 40 07/19/17 11:19 69 25 40 07/19/17 11:00 54 16 120/43 100 Mechanical Ventilator 40 07/19/17 10:00 55 16 109/40 99 Mechanical Ventilator 40 Status: awake Condition: improving HEENT: atraumatic, normocephalic Lungs: clear Heart: HR/BP stable Abdomen: soft, non-tender, active bowel sounds, feeding tube Extremities: no C/C/E Micro: Microbiology Date/Time Source Procedure Growth Status 07/17/17 11:00 Sputum Gram Stain - Final Complete 07/17/17 11:00 Sputum Sputum Culture - Final NORMAL UPPER RESPIRATORY EMELYN PRESENT Complete Critical Care - Subjective ROS Limited/Unobtainable: Yes ICU Day: 5 Intubation Day: 5 Interval Events: Awake, stable on vent, no sig secretion, FiO2 40%, placed on PS by myself Etelvina A/C and on PPI gtt Etelvina TF's Condition: critical IV Access: central EKG Rhythm: Atrial Fibrillation FI02: 35 Vent Support Breath Rate: 16 Vent Support Mode: AC Vent Tidal Volume: 500 Sputum Amount: Scant PEEP: 5.0 PIP: 25 Tube Feeding Amount: 50 ET-Tube: 7.5 ET Position: 22 Labs: Laboratory Tests Test 07/19/17 12:00 07/19/17 20:23 07/20/17 05:30 White Blood Count 9.4 K/UL (4.8-10.8) 7.8 K/UL (4.8-10.8) 7.4 K/UL (4.8-10.8) Red Blood Count 3.21 M/UL (4.20-5.40) L 3.21 M/UL (4.20-5.40) L 3.18 M/UL (4.20-5.40) L Hemoglobin 8.7 G/DL (12.0-16.0) L 8.2 G/DL (12.0-16.0) L 8.4 G/DL (12.0-16.0) L Hematocrit 27.6 % (37.0-47.0) L 27.5 % (37.0-47.0) L 27.0 % (37.0-47.0) L Mean Corpuscular Volume 86 FL (80-99) 86 FL (80-99) 85 FL (80-99) Mean Corpuscular Hemoglobin 27.0 PG (27.0-31.0) 25.6 PG (27.0-31.0) L 26.3 PG (27.0-31.0) L Mean Corpuscular Hemoglobin Concent 31.3 G/DL (32.0-36.0) L 29.8 G/DL (32.0-36.0) L 30.9 G/DL (32.0-36.0) L Red Cell Distribution Width 19.2 % (11.6-14.8) H 19.1 % (11.6-14.8) H 19.1 % (11.6-14.8) H Platelet Count 207 K/UL (150-450) 196 K/UL (150-450) 203 K/UL (150-450) Mean Platelet Volume 10.8 FL (6.5-10.1) H 8.7 FL (6.5-10.1) 9.1 FL (6.5-10.1) Neutrophils (%) (Auto) 80.7 % (45.0-75.0) H 78.9 % (45.0-75.0) H 76.3 % (45.0-75.0) H Lymphocytes (%) (Auto) 13.4 % (20.0-45.0) L 15.6 % (20.0-45.0) L 19.4 % (20.0-45.0) L Monocytes (%) (Auto) 5.5 % (1.0-10.0) 5.2 % (1.0-10.0) 3.9 % (1.0-10.0) Eosinophils (%) (Auto) 0.0 % (0.0-3.0) 0.0 % (0.0-3.0) 0.2 % (0.0-3.0) Basophils (%) (Auto) 0.4 % (0.0-2.0) 0.2 % (0.0-2.0) 0.2 % (0.0-2.0) Vancomycin Level Trough 4.9 ug/mL (5.0-12.0) L Activated Partial Thromboplast Time 54 SEC (23-33) H Sodium Level 138 MMOL/L (136-145) Potassium Level 3.2 MMOL/L (3.5-5.1) L Chloride Level 109 MMOL/L (98-107) H Carbon Dioxide Level 22 MMOL/L (21-32) Anion Gap 7 mmol/L (5-15) Blood Urea Nitrogen 10 mg/dL (7-18) Creatinine 0.4 MG/DL (0.55-1.30) L Estimat Glomerular Filtration Rate mL/min (>60) Glucose Level 132 MG/DL (74-106) H Calcium Level 7.4 MG/DL (8.5-10.1) L Magnesium Level 1.5 MG/DL (1.8-2.4) L FRANCOIS ZUNIGA M.D. Jul 20, 2017 09:50
--- NOTE | 2017-07-20 11:43 | GI Progress Note ---
Assessment/Plan Problems: (1) S/P percutaneous endoscopic gastrostomy (PEG) tube placement ICD Codes: Z93.1 - Gastrostomy status SNOMED: 605847961 (2) Failure to thrive SNOMED: 25560434 (3) Ventilator dependent ICD Codes: Z99.11 - Dependence on respirator [ventilator] status SNOMED: 378673182 (4) NSTEMI (non-ST elevated myocardial infarction) ICD Codes: I21.4 - Non-ST elevation (NSTEMI) myocardial infarction SNOMED: 063556950 (5) Severe sepsis ICD Codes: A41.9 - Sepsis, unspecified organism; R65.20 - Severe sepsis without septic shock SNOMED: 39621174 (6) Elevated troponin ICD Codes: R74.8 - Abnormal levels of other serum enzymes SNOMED: 166751955, 287432527 (7) Anemia ICD Codes: D64.9 - Anemia, unspecified SNOMED: 924053538 (8) Weakness ICD Codes: R53.1 - Weakness SNOMED: 49356639 (9) Transaminitis ICD Codes: R74.0 - Nonspecific elevation of levels of transaminase and lactic acid dehydrogenase [LDH] SNOMED: 602509167 (10) Protein-calorie malnutrition, severe ICD Codes: E43 - Unspecified severe protein-calorie malnutrition SNOMED: 720923485 (11) Dehydration ICD Codes: E86.0 - Dehydration SNOMED: 00517013 (12) Septic shock ICD Codes: A41.9 - Sepsis, unspecified organism; R65.21 - Severe sepsis with septic shock SNOMED: 66635232 Status: unchanged Status Narrative Discussed with Dr. Sierra. Assessment/Plan Assessment - respiratory failure - dysphagia, s/p prior GJ tube - UGIB - no plans for EGD at this time due to MO - NSTEMI - AMS - Anemia - OB stool positive Recommendations defer GI procedures at this time given elevated troponin >> will require cardiac clearance prior any procedure - patient is also on Eliquis which must dc 48-72 hours min prior any GI procedures Gastric Lavage 500 cc r/o UGIB >> POSITIVE, will require EGD when stable. Continue J tube feeds monitor H&H closely cardiology f/u PPI gtt fu labs The patient was seen and examined at bedside and all new and available data was reviewed in the patients chart. I agree with the above findings, impression and plan. (Patient seen earlier today. Signature stamp does not reflect patient encounter time.). - Olga Lidia Sierra MD Subjective Subjective limited Objective Last 24 Hour Vital Signs Date Time Temp Pulse Resp B/P (MAP) Pulse Ox O2 Delivery O2 Flow Rate FiO2 07/20/17 09:40 100 07/20/17 09:40 40 07/20/17 09:36 64 07/20/17 09:30 60 23 35 07/20/17 09:00 57 07/20/17 09:00 61 17 113/42 100 Mechanical Ventilator 40 07/20/17 08:00 98.7 94 25 145/53 100 Mechanical Ventilator 40 07/20/17 08:00 40 07/20/17 07:15 60 17 35 07/20/17 07:00 60 17 119/42 100 Mechanical Ventilator 40 07/20/17 06:00 69 21 136/57 100 Mechanical Ventilator 40 07/20/17 05:30 70 26 35 07/20/17 05:00 58 18 113/43 100 Mechanical Ventilator 40 07/20/17 04:00 77 07/20/17 04:00 98.2 77 23 132/71 100 Mechanical Ventilator 40 07/20/17 04:00 40 07/20/17 03:09 96 27 35 07/20/17 03:00 87 23 137/70 100 Mechanical Ventilator 40 07/20/17 02:00 95 22 139/73 99 Mechanical Ventilator 40 07/20/17 01:30 58 18 35 07/20/17 01:00 59 17 113/49 99 Mechanical Ventilator 40 07/20/17 00:00 60 07/20/17 00:00 98.3 60 16 106/42 100 Mechanical Ventilator 40 07/20/17 00:00 40 07/19/17 23:30 59 16 35 07/19/17 23:00 88 25 144/64 99 Mechanical Ventilator 40 07/19/17 22:15 106/47 07/19/17 22:00 62 16 116/43 98 Mechanical Ventilator 40 07/19/17 21:30 74 25 35 07/19/17 21:22 80 139/55 07/19/17 21:00 87 23 139/55 98 Mechanical Ventilator 40 07/19/17 20:00 76 07/19/17 20:00 98.6 76 19 128/64 99 Mechanical Ventilator 40 07/19/17 20:00 40 07/19/17 19:30 72 24 35 07/19/17 19:00 83 19 140/52 100 Mechanical Ventilator 40 07/19/17 18:00 62 16 97/36 100 Mechanical Ventilator 40 07/19/17 17:01 113 25 40 07/19/17 17:00 84 26 156/76 100 Mechanical Ventilator 40 07/19/17 16:00 98.2 62 18 126/43 100 Mechanical Ventilator 40 07/19/17 16:00 63 07/19/17 16:00 40 07/19/17 15:26 61 17 40 07/19/17 15:00 57 19 122/44 100 Mechanical Ventilator 40 07/19/17 14:00 62 16 110/44 100 Mechanical Ventilator 40 07/19/17 13:00 60 16 121/52 100 Mechanical Ventilator 40 07/19/17 12:34 75 23 40 07/19/17 12:00 64 07/19/17 12:00 98.1 66 16 123/41 99 Mechanical Ventilator 40 Intake and Output 07/20/17 07/21/17 19:00 07:00 Intake Total 459.413 ml Output Total 100 ml Balance 359.413 ml IV Total 309.413 ml Tube Feeding 150 ml Output Urine Total 100 ml Laboratory Tests Test 07/19/17 12:00 07/19/17 20:23 07/20/17 05:30 07/20/17 10:20 White Blood Count 9.4 K/UL (4.8-10.8) 7.8 K/UL (4.8-10.8) 7.4 K/UL (4.8-10.8) Red Blood Count 3.21 M/UL (4.20-5.40) L 3.21 M/UL (4.20-5.40) L 3.18 M/UL (4.20-5.40) L Hemoglobin 8.7 G/DL (12.0-16.0) L 8.2 G/DL (12.0-16.0) L 8.4 G/DL (12.0-16.0) L Hematocrit 27.6 % (37.0-47.0) L 27.5 % (37.0-47.0) L 27.0 % (37.0-47.0) L Mean Corpuscular Volume 86 FL (80-99) 86 FL (80-99) 85 FL (80-99) Mean Corpuscular Hemoglobin 27.0 PG (27.0-31.0) 25.6 PG (27.0-31.0) L 26.3 PG (27.0-31.0) L Mean Corpuscular Hemoglobin Concent 31.3 G/DL (32.0-36.0) L 29.8 G/DL (32.0-36.0) L 30.9 G/DL (32.0-36.0) L Red Cell Distribution Width 19.2 % (11.6-14.8) H 19.1 % (11.6-14.8) H 19.1 % (11.6-14.8) H Platelet Count 207 K/UL (150-450) 196 K/UL (150-450) 203 K/UL (150-450) Mean Platelet Volume 10.8 FL (6.5-10.1) H 8.7 FL (6.5-10.1) 9.1 FL (6.5-10.1) Neutrophils (%) (Auto) 80.7 % (45.0-75.0) H 78.9 % (45.0-75.0) H 76.3 % (45.0-75.0) H Lymphocytes (%) (Auto) 13.4 % (20.0-45.0) L 15.6 % (20.0-45.0) L 19.4 % (20.0-45.0) L Monocytes (%) (Auto) 5.5 % (1.0-10.0) 5.2 % (1.0-10.0) 3.9 % (1.0-10.0) Eosinophils (%) (Auto) 0.0 % (0.0-3.0) 0.0 % (0.0-3.0) 0.2 % (0.0-3.0) Basophils (%) (Auto) 0.4 % (0.0-2.0) 0.2 % (0.0-2.0) 0.2 % (0.0-2.0) Vancomycin Level Trough 4.9 ug/mL (5.0-12.0) L Activated Partial Thromboplast Time 54 SEC (23-33) H Sodium Level 138 MMOL/L (136-145) Potassium Level 3.2 MMOL/L (3.5-5.1) L Chloride Level 109 MMOL/L (98-107) H Carbon Dioxide Level 22 MMOL/L (21-32) Anion Gap 7 mmol/L (5-15) Blood Urea Nitrogen 10 mg/dL (7-18) Creatinine 0.4 MG/DL (0.55-1.30) L Estimat Glomerular Filtration Rate mL/min (>60) Glucose Level 132 MG/DL (74-106) H Calcium Level 7.4 MG/DL (8.5-10.1) L Magnesium Level 1.5 MG/DL (1.8-2.4) L Arterial Blood pH 7.390 (7.350-7.450) Arterial Blood Partial Pressure CO2 39.9 mmHg (35.0-45.0) Arterial Blood Partial Pressure O2 43.9 mmHg (75.0-100.0) Arterial Blood HCO3 23.6 mmol/L (22.0-26.0) Arterial Blood Oxygen Saturation 76.3 % (92.0-98.0) L Arterial Blood Base Excess -1.2 Jamie Test Positive Test 07/20/17 10:50 Arterial Blood pH 7.410 (7.350-7.450) Arterial Blood Partial Pressure CO2 32.8 mmHg (35.0-45.0) L Arterial Blood Partial Pressure O2 104.8 mmHg (75.0-100.0) H Arterial Blood HCO3 20.6 mmol/L (22.0-26.0) L Arterial Blood Oxygen Saturation 97.2 % (92.0-98.0) Arterial Blood Base Excess -3.4 Jamie Test Positive Height (Feet): 5 Height (Inches): 2.00 Weight (Pounds): 109 General Appearance: no apparent distress, thin Cardiovascular: normal rate Respiratory/Chest: other - intubated, mech vent Abdominal Exam: other - GJ tube [place] Colon N.P. Jul 20, 2017 11:43 MITUL SIERRA Jul 21, 2017 08:33
--- NOTE | 2017-07-20 12:44 | General Progress Note ---
Assessment/Plan Problem List: (1) Acute respiratory failure with hypoxia and hypercapnia ICD Codes: J96.01 - Acute respiratory failure with hypoxia; J96.02 - Acute respiratory failure with hypercapnia SNOMED: 63674742, 93677930, 013266182 (2) Severe sepsis ICD Codes: A41.9 - Sepsis, unspecified organism; R65.20 - Severe sepsis without septic shock SNOMED: 89611137 (3) HCAP vs Aspiration pneumonia (4) UTI (urinary tract infection) ICD Codes: N39.0 - Urinary tract infection, site not specified SNOMED: 90860263 (5) Lactic acid acidosis ICD Codes: E87.2 - Acidosis SNOMED: 05743602 (6) NSTEMI (non-ST elevated myocardial infarction) ICD Codes: I21.4 - Non-ST elevation (NSTEMI) myocardial infarction SNOMED: 363743031 (7) Acute on chronic anemia (8) Hyponatremia ICD Codes: E87.1 - Hypo-osmolality and hyponatremia SNOMED: 23078316 (9) paroxsymal atrial fibrillation (10) CAD s/p PCI (11) Ischemic cardiomyopathy ICD Codes: I25.5 - Ischemic cardiomyopathy SNOMED: 722616781 (12) CVA (cerebral vascular accident) ICD Codes: I63.9 - Cerebral infarction, unspecified SNOMED: 967897103 (13) Alzheimer's dementia ICD Codes: G30.9 - Alzheimer's disease, unspecified SNOMED: 59204671 Status: stable Assessment/Plan Continue in ICU Pulm, cardiology, ID, GI consulted, appreciate rec's Cont on vent and wean as tolerated. Currently on SBT. Possible extubation today Daily SBTs, sedation holiday Serial CXRs, ABGs Cont empiric vanco, zosyn, azithro per ID (07/16-), s/p amikacin F/u cultures Trend CBC, BMP, lactate Trend trop/EKG --> trop downtrending F/u TTE --> 45% EF with mild LVDD Cont heparin gtt per cardiology (Eliquis on hold) s/p 1 unit pRBC transfusion 07/17. Gastric lavage on 07/17 showed e/o bleeding but currently no active signs of bleeding Patient will eventually need EGD/colonoscopy to assess for GIB given acute drop in hemoglobin and positive FOBT. However, patient is unstable at the moment given NSTEMI/elevated trops. Awaiting cardiac clearance Continue PPI gtt Continue IV venofer Start G-tube feedings per GI Supportive care DVT Prophylaxis: SCD, heparin gtt Code Status: Full per discussion w/ pt's DPOA/daughter Hospital Classification Declaration: Based on this initial evaluation, and depending on the patient's clinical course, I anticipate that this patient will require hospitalization for 2-3 days for acute respiratory faiure, severe sepsis and close respiratory/hemodynamic monitoring. Disposition: Once the patient is stable to leave the hospital, I anticipate the patient will likely be discharged to the following environment: back to SNF I spent 70 minutes on this patient's case, and 40 minutes were dedicated to counseling and/or care coordination. Discussed with patient/family, nursing staff, SW/CM, ID, renal, pulm, cardiology regarding clinical status, treatment course, and disposition planning. Time of note may not reflect time of encounter. At the time of my involvement, the patient's condition was critical with high potential for and/or physiologic deterioration secondary to [] as delineated in the note above. On the above date of service, I spent a total of 41 minutes in the ICU evaluating, managing, and providing critical care services to this patient, including time spent documenting these activities, counseling patient/family, and coordinating care. Critical care services performed include: Telemetry Review Hemodynamic measurement interpretation Laboratory data review and interpretation Ventilator setting review, management, and adjustment Discussion of care plans with patient, family, and/or surrogate decision makers Discussion of patient's care with primary medical team, surgical team, and/or consulting service Decision to obtain further radiologic evaluation, after consideration of risk/ benefit ratio Review of most recent microbiology results with assessment and modification of antimicrobial coverage Discussion of patient's code status and further advancement towards the ultimate goals of care Plan outlined above discussed with patient/family, COMPENSATION SPECIALIST, ICU team, and involved physicians/consultants. Time of note may not reflect time of encounter. Subjective Date patient seen: Jul 20, 2017 Time patient seen: 12:44 ROS Limited/Unobtainable: Yes Allergies: Coded Allergies: No Known Allergies (Unverified , 05/25/13) Subjective No acute o/n events Pt intubated, sedated but arousable Doing well on SBT this AM. Possible plan for extubation Objective Last 24 Hour Vital Signs Date Time Temp Pulse Resp B/P (MAP) Pulse Ox O2 Delivery O2 Flow Rate FiO2 07/20/17 12:00 40 07/20/17 12:00 67 16 117/56 98 Mechanical Ventilator 40 07/20/17 11:00 105 28 178/85 98 Mechanical Ventilator 40 07/20/17 10:55 100 27 40 07/20/17 10:50 40 07/20/17 10:00 63 22 112/47 100 Mechanical Ventilator 40 07/20/17 09:40 100 07/20/17 09:40 69 23 40 07/20/17 09:40 40 07/20/17 09:36 64 07/20/17 09:30 60 23 40 07/20/17 09:00 57 07/20/17 09:00 61 17 113/42 100 Mechanical Ventilator 40 07/20/17 08:00 98.7 94 25 145/53 100 Mechanical Ventilator 40 07/20/17 08:00 40 07/20/17 07:15 60 17 40 07/20/17 07:00 60 17 119/42 100 Mechanical Ventilator 40 07/20/17 06:00 69 21 136/57 100 Mechanical Ventilator 40 07/20/17 05:30 70 26 35 07/20/17 05:00 58 18 113/43 100 Mechanical Ventilator 40 07/20/17 04:00 77 07/20/17 04:00 98.2 77 23 132/71 100 Mechanical Ventilator 40 07/20/17 04:00 40 07/20/17 03:09 96 27 35 07/20/17 03:00 87 23 137/70 100 Mechanical Ventilator 40 07/20/17 02:00 95 22 139/73 99 Mechanical Ventilator 40 07/20/17 01:30 58 18 35 07/20/17 01:00 59 17 113/49 99 Mechanical Ventilator 40 07/20/17 00:00 60 07/20/17 00:00 98.3 60 16 106/42 100 Mechanical Ventilator 40 07/20/17 00:00 40 07/19/17 23:30 59 16 35 07/19/17 23:00 88 25 144/64 99 Mechanical Ventilator 40 07/19/17 22:15 106/47 07/19/17 22:00 62 16 116/43 98 Mechanical Ventilator 40 07/19/17 21:30 74 25 35 07/19/17 21:22 80 139/55 07/19/17 21:00 87 23 139/55 98 Mechanical Ventilator 40 07/19/17 20:00 76 07/19/17 20:00 98.6 76 19 128/64 99 Mechanical Ventilator 40 07/19/17 20:00 40 07/19/17 19:30 72 24 35 07/19/17 19:00 83 19 140/52 100 Mechanical Ventilator 40 07/19/17 18:00 62 16 97/36 100 Mechanical Ventilator 40 07/19/17 17:01 113 25 40 07/19/17 17:00 84 26 156/76 100 Mechanical Ventilator 40 07/19/17 16:00 98.2 62 18 126/43 100 Mechanical Ventilator 40 07/19/17 16:00 63 07/19/17 16:00 40 07/19/17 15:26 61 17 40 07/19/17 15:00 57 19 122/44 100 Mechanical Ventilator 40 07/19/17 14:00 62 16 110/44 100 Mechanical Ventilator 40 07/19/17 13:00 60 16 121/52 100 Mechanical Ventilator 40 Intake and Output 07/20/17 07/21/17 19:00 07:00 Intake Total 637.355 ml Output Total 100 ml Balance 537.355 ml IV Total 487.355 ml Tube Feeding 150 ml Output Urine Total 100 ml Laboratory Tests 07/19/17 20:23: White Blood Count 7.8, Red Blood Count 3.21L, Hemoglobin 8.2L, Hematocrit 27.5L , Mean Corpuscular Volume 86, Mean Corpuscular Hemoglobin 25.6L, Mean Corpuscular Hemoglobin Concent 29.8L, Red Cell Distribution Width 19.1H, Platelet Count 196, Mean Platelet Volume 8.7, Neutrophils (%) (Auto) 78.9H, Lymphocytes (%) (Auto) 15.6L, Monocytes (%) (Auto) 5.2, Eosinophils (%) (Auto) 0.0, Basophils (%) (Auto) 0.2, Vancomycin Level Trough 4.9L 07/20/17 05:30: White Blood Count 7.4, Red Blood Count 3.18L, Hemoglobin 8.4L, Hematocrit 27.0L , Mean Corpuscular Volume 85, Mean Corpuscular Hemoglobin 26.3L, Mean Corpuscular Hemoglobin Concent 30.9L, Red Cell Distribution Width 19.1H, Platelet Count 203, Mean Platelet Volume 9.1, Neutrophils (%) (Auto) 76.3H, Lymphocytes (%) (Auto) 19.4L, Monocytes (%) (Auto) 3.9, Eosinophils (%) (Auto) 0.2, Basophils (%) (Auto) 0.2, Activated Partial Thromboplast Time 54H, Sodium Level 138, Potassium Level 3.2L, Chloride Level 109H, Carbon Dioxide Level 22, Anion Gap 7, Blood Urea Nitrogen 10, Creatinine 0.4L, Estimat Glomerular Filtration Rate , Glucose Level 132H, Calcium Level 7.4L, Magnesium Level 1.5L 07/20/17 10:20: Arterial Blood pH 7.390, Arterial Blood Partial Pressure CO2 39.9, Arterial Blood Partial Pressure O2 43.9*L, Arterial Blood HCO3 23.6, Arterial Blood Oxygen Saturation 76.3L, Arterial Blood Base Excess -1.2, Jamie Test Positive 07/20/17 10:50: Arterial Blood pH 7.410, Arterial Blood Partial Pressure CO2 32.8L, Arterial Blood Partial Pressure O2 104.8H, Arterial Blood HCO3 20.6L, Arterial Blood Oxygen Saturation 97.2, Arterial Blood Base Excess -3.4, Jamie Test Positive Height (Feet): 5 Height (Inches): 2.00 Weight (Pounds): 109 Kilo López M.D. Jul 20, 2017 12:44
[2017-07-20] MEDS: Amikacin 700 MG in NS 110 ML IV SCH (13:00)
--- NOTE | 2017-07-20 13:47 | Diagnostic Imaging Report ---
Indication: Dyspnea Comparison: 07/19/2017 A single view chest radiograph was obtained. Findings: Mild interstitial edema suspected. Heart size is stable. Endotracheal tube is stable. IMPRESSION: CHF. No change
--- NOTE | 2017-07-20 14:40 | Infectious Diseases Prog Note ---
Assessment/Plan Assessment/Plan ASSESSMENT AND PLAN: 1. e.coli uti, mrsa uti, klebsiella/e.coli/strep g-tube infection, sepsis, legionella negative, respiratory failure/vent - change abx to vancomycin, rocephin and flagyl - leukocytosis and fevers better - check labs and chest x-ray - icu and supportive care, plan to extubate 2. The patient has severe anemia. 3. Respiratory failure, on ventilator. 4. Dysphagia, on gastrostomy tube. 5. Skin care protocol. Wounds were reviewed. They do not look acutely infected. 6. Hypertension. 7. Cardiomyopathy. 8. CVA. 9. Coronary artery disease. 10. Percutaneous coronary intervention of the left anterior descending. 11. Atrial fibrillation. 12. Alzheimer's. 13. Dementia. 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 15. Blood pressure treatment for hypertension per primary. 16. Allergies are negative. 17. Family number is noncontributory. 18. Social history is negative. 19. MAR was noted. 20. Case was discussed with RN. 21. Continue treatment per primary consultants. 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, vre colonization and isolation Subjective Constitutional: Denies: fever HEENT: Reports: other - oral - intbated Respiratory: Reports: other - + vent Cardiovascular: Denies: chest pain Gastrointestinal/Abdominal: Denies: nausea, vomiting, diarrhea Genitourinary: Reports: other - + blake Neurologic: Reports: weakness, other - respon Psychiatric: Denies: no symptoms Skin: Denies: rash Hematologic: Denies: bleeding Musculoskeletal: Denies: pain Allergies: Coded Allergies: No Known Allergies (Unverified , 05/25/13) Objective Vital Signs Last 24 Hour Vital Signs Date Time Temp Pulse Resp B/P (MAP) Pulse Ox O2 Delivery O2 Flow Rate FiO2 07/20/17 14:00 55 16 116/44 100 Mechanical Ventilator 40 07/20/17 13:00 58 20 112/47 100 Mechanical Ventilator 40 07/20/17 12:00 40 07/20/17 12:00 98.0 67 16 117/56 98 Mechanical Ventilator 40 07/20/17 11:42 67 07/20/17 11:00 105 28 178/85 98 Mechanical Ventilator 40 07/20/17 10:55 100 27 40 07/20/17 10:50 40 07/20/17 10:00 63 22 112/47 100 Mechanical Ventilator 40 17 09:40 100 17 09:40 69 23 40 17 09:40 40 17 09:36 64 07/20/17 09:30 60 23 40 1817 09:00 57 07/20/17 09:00 61 17 113/42 100 Mechanical Ventilator 40 17 08:30 62 07/20/17 08:00 98.7 94 25 145/53 100 Mechanical Ventilator 40 07/20/17 08:00 40 07/20/17 07:15 60 17 40 07/20/17 07:00 60 17 119/42 100 Mechanical Ventilator 40 07/20/17 06:00 69 21 136/57 100 Mechanical Ventilator 40 07/20/17 05:30 70 26 35 07/20/17 05:00 58 18 113/43 100 Mechanical Ventilator 40 07/20/17 04:00 77 07/20/17 04:00 98.2 77 23 132/71 100 Mechanical Ventilator 40 07/20/17 04:00 40 07/20/17 03:09 96 27 35 07/20/17 03:00 87 23 137/70 100 Mechanical Ventilator 40 07/20/17 02:00 95 22 139/73 99 Mechanical Ventilator 40 07/20/17 01:30 58 18 35 07/20/17 01:00 59 17 113/49 99 Mechanical Ventilator 40 07/20/17 00:00 60 07/20/17 00:00 98.3 60 16 106/42 100 Mechanical Ventilator 40 07/20/17 00:00 40 07/19/17 23:30 59 16 35 07/19/17 23:00 88 25 144/64 99 Mechanical Ventilator 40 07/19/17 22:15 106/47 07/19/17 22:00 62 16 116/43 98 Mechanical Ventilator 40 07/19/17 21:30 74 25 35 07/19/17 21:22 80 139/55 07/19/17 21:00 87 23 139/55 98 Mechanical Ventilator 40 07/19/17 20:00 76 07/19/17 20:00 98.6 76 19 128/64 99 Mechanical Ventilator 40 07/19/17 20:00 40 07/19/17 19:30 72 24 35 07/19/17 19:00 83 19 140/52 100 Mechanical Ventilator 40 07/19/17 18:00 62 16 97/36 100 Mechanical Ventilator 40 07/19/17 17:01 113 25 40 07/19/17 17:00 84 26 156/76 100 Mechanical Ventilator 40 07/19/17 16:00 98.2 62 18 126/43 100 Mechanical Ventilator 40 07/19/17 16:00 63 07/19/17 16:00 40 07/19/17 15:26 61 17 40 07/19/17 15:00 57 19 122/44 100 Mechanical Ventilator 40 Height (Feet): 5 Height (Inches): 2.00 Weight (Pounds): 109 General Appearance: no acute distress HEENT: normocephalic, atraumatic, anicteric, EOMI, no JVD, other - 0ral intubated Respiratory/Chest: crackles/rales, rhonchi - bilaterally Cardiovascular: normal rate, regular rhythm, no gallop/murmur Abdomen: normal bowel sounds, soft, non tender, no organomegaly, non distended Genitourinary: other - + blake - urine cloudy but clearer Extremities: no cyanosis Skin: no rash Neurologic/Psychiatric: field staff II-XII grossly normal, alert, responsive Lymphatic: no neck adenopathy Musculoskeletal: no effusion Objective Chest x-ray - 07/20 - Comparison: 07/19/2017 A single view chest radiograph was obtained. Findings: Mild interstitial edema suspected. Heart size is stable. Endotracheal tube is stable. IMPRESSION: CHF. No change previous imaging noted Microbiology Date/Time Source Procedure Growth Status 07/16/17 19:00 Blood Blood Culture - Preliminary NO GROWTH AFTER 72 HOURS Resulted 07/17/17 01:20 Wound Gram Stain - Final Resulted 07/17/17 01:20 Wound Culture - Preliminary Klebsiella Pneumoniae Escherichia Coli Strep Species, Gamma-Hemolytic Resulted 07/17/17 11:00 Sputum Gram Stain - Final Complete 07/17/17 11:00 Sputum Sputum Culture - Final NORMAL UPPER RESPIRATORY EMELYN PRESENT Complete 07/17/17 08:00 Stool Clostridium difficile Toxin Assay - Final Complete 07/16/17 19:28 Urine,Clean Catch Urine Culture - Final Escherichia Coli Staphylococcus Aureus - Mrsa Complete 07/16/17 19:30 Rectum VRE Culture - Final Enterococcus Faecalis - Vre Complete Laboratory Tests Test 07/19/17 20:23 07/20/17 05:30 07/20/17 10:20 07/20/17 10:50 White Blood Count 7.8 K/UL (4.8-10.8) 7.4 K/UL (4.8-10.8) Red Blood Count 3.21 M/UL (4.20-5.40) L 3.18 M/UL (4.20-5.40) L Hemoglobin 8.2 G/DL (12.0-16.0) L 8.4 G/DL (12.0-16.0) L Hematocrit 27.5 % (37.0-47.0) L 27.0 % (37.0-47.0) L Mean Corpuscular Volume 86 FL (80-99) 85 FL (80-99) Mean Corpuscular Hemoglobin 25.6 PG (27.0-31.0) L 26.3 PG (27.0-31.0) L Mean Corpuscular Hemoglobin Concent 29.8 G/DL (32.0-36.0) L 30.9 G/DL (32.0-36.0) L Red Cell Distribution Width 19.1 % (11.6-14.8) H 19.1 % (11.6-14.8) H Platelet Count 196 K/UL (150-450) 203 K/UL (150-450) Mean Platelet Volume 8.7 FL (6.5-10.1) 9.1 FL (6.5-10.1) Neutrophils (%) (Auto) 78.9 % (45.0-75.0) H 76.3 % (45.0-75.0) H Lymphocytes (%) (Auto) 15.6 % (20.0-45.0) L 19.4 % (20.0-45.0) L Monocytes (%) (Auto) 5.2 % (1.0-10.0) 3.9 % (1.0-10.0) Eosinophils (%) (Auto) 0.0 % (0.0-3.0) 0.2 % (0.0-3.0) Basophils (%) (Auto) 0.2 % (0.0-2.0) 0.2 % (0.0-2.0) Vancomycin Level Trough 4.9 ug/mL (5.0-12.0) L Activated Partial Thromboplast Time 54 SEC (23-33) H Sodium Level 138 MMOL/L (136-145) Potassium Level 3.2 MMOL/L (3.5-5.1) L Chloride Level 109 MMOL/L (98-107) H Carbon Dioxide Level 22 MMOL/L (21-32) Anion Gap 7 mmol/L (5-15) Blood Urea Nitrogen 10 mg/dL (7-18) Creatinine 0.4 MG/DL (0.55-1.30) L Estimat Glomerular Filtration Rate mL/min (>60) Glucose Level 132 MG/DL (74-106) H Calcium Level 7.4 MG/DL (8.5-10.1) L Magnesium Level 1.5 MG/DL (1.8-2.4) L Arterial Blood pH 7.390 (7.350-7.450) 7.410 (7.350-7.450) Arterial Blood Partial Pressure CO2 39.9 mmHg (35.0-45.0) 32.8 mmHg (35.0-45.0) L Arterial Blood Partial Pressure O2 43.9 mmHg (75.0-100.0) 104.8 mmHg (75.0-100.0) H Arterial Blood HCO3 23.6 mmol/L (22.0-26.0) 20.6 mmol/L (22.0-26.0) L Arterial Blood Oxygen Saturation 76.3 % (92.0-98.0) L 97.2 % (92.0-98.0) Arterial Blood Base Excess -1.2 -3.4 Jamie Test Positive Positive Test 07/20/17 12:30 Activated Partial Thromboplast Time 88 SEC (23-33) H Troponin I 2.953 ng/mL (0.000-0.056) Current Medications Medications (Trade) Dose Ordered Sig/Analia Route PRN Reason Start Time Stop Time Status Last Admin Dose Admin Acetaminophen (Tylenol) 650 mg Q4H PRN ORAL fever 07/16/17 22:15 18 22:14 07/17/17 08:06 Albuterol/ Ipratropium (Albuterol/ Ipratropium) 3 ml EVERY 4 HOURS PRN HHN Shortness of Breath 07/19/17 12:00 07/24/17 11:59 Amikacin Protocol (Amikacin pharmacy to dose) 1 ea DAILY PRN MISC PER RX PROTOCOL 07/17/17 12:00 08/16/17 11:59 Amikacin Sulfate 700 mg/Sodium Chloride 112.8 ml @ 112.8 mls/ hr Q24H IV 07/18/17 12:00 07/25/17 11:59 07/20/17 13:00 Aspirin (ASA) 81 mg DAILY NG 07/19/17 09:00 08/18/17 08:59 07/20/17 09:16 Atorvastatin Calcium (Lipitor) 10 mg BEDTIME ORAL 07/17/17 21:00 08/16/17 20:59 07/19/17 21:22 Azithromycin (Zithromax) 250 mg DAILY ORAL 07/17/17 18:00 07/24/17 17:59 07/20/17 09:16 Chlorhexidine Gluconate (Joana-Hex 2%) 1 applic DAILY@2000 TOPIC 07/18/17 20:00 08/17/17 19:59 07/19/17 20:12 Heparin Sodium/ Dextrose 500 ml @ 13.971 mls/ hr adjust per protocol IV 07/20/17 06:30 08/16/17 14:39 07/20/17 11:07 Iron Sucrose 100 mg/Sodium Chloride 60 ml @ 240 mls/hr BEDTIME IV 07/18/17 21:00 07/22/17 21:14 07/19/17 21:21 Lorazepam (Ativan 2mg/ml 1ml) 2 mg EVERY 2 HOURS PRN IV For Anxiety 07/16/17 22:15 07/23/17 22:14 07/19/17 17:04 Meropenem 1 gm/ Sodium Chloride 55 ml @ 110 mls/hr Q12HR IVPB 07/17/17 13:00 07/22/17 12:59 07/20/17 09:16 Metoprolol Tartrate (Lopressor) 12.5 mg Q12HR ORAL 07/17/17 21:00 08/16/17 20:59 07/19/17 21:22 Morphine Sulfate (Morphine Sulfate) 4 mg EVERY 4 HOURS PRN IVP Severe Pain (Pain Scale 7-10) 07/16/17 22:15 07/23/17 22:14 Norepinephrine Bitartrate 4 mg/ Dextrose 254 ml @ 0 mls/hr Q24H IV 07/16/17 22:15 08/15/17 22:14 Ondansetron HCl (Zofran) 4 mg Q6H PRN IVP Nausea & Vomiting 07/16/17 22:15 08/15/17 22:14 Pantoprazole 80 mg/Sodium Chloride 250 ml @ 25 mls/hr Q10H IV 07/17/17 18:00 08/16/17 17:59 07/20/17 06:37 Polyethylene Glycol (Miralax) 17 gm DAILYPRN PRN ORAL Constipation 07/16/17 22:15 08/15/17 22:14 Vancomycin HCl (Vanco rx to dose) 1 ea DAILY PRN MISC per protocol 07/17/17 00:45 08/16/17 00:44 Vancomycin HCl 1 gm/Dextrose 275 ml @ 183.708 mls/hr Q24H IVPB 07/19/17 22:00 07/24/17 21:59 07/19/17 23:04 MIHAELA TUBBS Jul 20, 2017 14:40
[2017-07-20] MEDS: cefTRIAXone 1 GM in D5W 50 ML IVPB SCH (16:02)
--- NOTE | 2017-07-20 19:47 | Cardiology Progress Note ---
Assessment/Plan Assessment/Plan 1. [id number] myocardial infarction, echocardiogram showed LVEF of 50%, continue medical therapy. 2. Acute respiratory failure. 3. Hx of HTN 4. Sinus tachycardia likely due to sepsis resolved. Subjective Subjective Sinus rhythm at 61. Objective Last 24 Hour Vital Signs Date Time Temp Pulse Resp B/P (MAP) Pulse Ox O2 Delivery O2 Flow Rate FiO2 07/20/17 19:00 59 20 123/73 100 Mechanical Ventilator 30 07/20/17 18:00 86 26 115/44 98 Mechanical Ventilator 30 07/20/17 17:35 61 20 30 07/20/17 17:25 121 45 30 07/20/17 17:00 86 26 134/67 98 Mechanical Ventilator 30 07/20/17 16:00 98.1 62 20 107/42 98 Mechanical Ventilator 30 07/20/17 16:00 30 07/20/17 15:51 64 07/20/17 15:26 30 07/20/17 15:22 100 07/20/17 15:17 72 23 30 07/20/17 15:14 61 16 30 07/20/17 15:00 75 21 124/57 99 Mechanical Ventilator 30 07/20/17 14:00 55 16 116/44 100 Mechanical Ventilator 40 07/20/17 13:05 56 18 40 07/20/17 13:00 58 20 112/47 100 Mechanical Ventilator 40 07/20/17 12:00 40 07/20/17 12:00 98.0 67 16 117/56 98 Mechanical Ventilator 40 07/20/17 11:42 67 07/20/17 11:00 105 28 178/85 98 Mechanical Ventilator 40 07/20/17 10:55 100 27 40 07/20/17 10:50 40 07/20/17 10:00 63 22 112/47 100 Mechanical Ventilator 40 07/20/17 09:40 100 07/20/17 09:40 69 23 40 07/20/17 09:40 40 07/20/17 09:36 64 07/20/17 09:30 60 23 40 07/20/17 09:00 57 07/20/17 09:00 61 17 113/42 100 Mechanical Ventilator 40 07/20/17 08:30 62 07/20/17 08:00 98.7 94 25 145/53 100 Mechanical Ventilator 40 07/20/17 08:00 40 07/20/17 07:15 60 17 40 07/20/17 07:00 60 17 119/42 100 Mechanical Ventilator 40 07/20/17 06:00 69 21 136/57 100 Mechanical Ventilator 40 07/20/17 05:30 70 26 35 07/20/17 05:00 58 18 113/43 100 Mechanical Ventilator 40 07/20/17 04:00 77 07/20/17 04:00 98.2 77 23 132/71 100 Mechanical Ventilator 40 07/20/17 04:00 40 07/20/17 03:09 96 27 35 07/20/17 03:00 87 23 137/70 100 Mechanical Ventilator 40 07/20/17 02:00 95 22 139/73 99 Mechanical Ventilator 40 07/20/17 01:30 58 18 35 07/20/17 01:00 59 17 113/49 99 Mechanical Ventilator 40 07/20/17 00:00 60 07/20/17 00:00 98.3 60 16 106/42 100 Mechanical Ventilator 40 07/20/17 00:00 40 07/19/17 23:30 59 16 35 07/19/17 23:00 88 25 144/64 99 Mechanical Ventilator 40 07/19/17 22:15 106/47 07/19/17 22:00 62 16 116/43 98 Mechanical Ventilator 40 07/19/17 21:30 74 25 35 07/19/17 21:22 80 139/55 07/19/17 21:00 87 23 139/55 98 Mechanical Ventilator 40 07/19/17 20:00 76 07/19/17 20:00 98.6 76 19 128/64 99 Mechanical Ventilator 40 07/19/17 20:00 40 Intake and Output 07/20/17 07/21/17 19:00 07:00 Intake Total 1668.981 ml Output Total 740 ml Balance 928.981 ml Free Water 60 ml IV Total 1008.981 ml Tube Feeding 550 ml Other 50 ml Output Urine Total 740 ml 2D Echo: LVEF 50%, RVSP 28 mmHg, Grade I LVDD, Mild LVH Laboratory Tests Test 07/19/17 20:23 07/20/17 05:30 07/20/17 10:20 07/20/17 10:50 White Blood Count 7.8 K/UL (4.8-10.8) 7.4 K/UL (4.8-10.8) Red Blood Count 3.21 M/UL (4.20-5.40) L 3.18 M/UL (4.20-5.40) L Hemoglobin 8.2 G/DL (12.0-16.0) L 8.4 G/DL (12.0-16.0) L Hematocrit 27.5 % (37.0-47.0) L 27.0 % (37.0-47.0) L Mean Corpuscular Volume 86 FL (80-99) 85 FL (80-99) Mean Corpuscular Hemoglobin 25.6 PG (27.0-31.0) L 26.3 PG (27.0-31.0) L Mean Corpuscular Hemoglobin Concent 29.8 G/DL (32.0-36.0) L 30.9 G/DL (32.0-36.0) L Red Cell Distribution Width 19.1 % (11.6-14.8) H 19.1 % (11.6-14.8) H Platelet Count 196 K/UL (150-450) 203 K/UL (150-450) Mean Platelet Volume 8.7 FL (6.5-10.1) 9.1 FL (6.5-10.1) Neutrophils (%) (Auto) 78.9 % (45.0-75.0) H 76.3 % (45.0-75.0) H Lymphocytes (%) (Auto) 15.6 % (20.0-45.0) L 19.4 % (20.0-45.0) L Monocytes (%) (Auto) 5.2 % (1.0-10.0) 3.9 % (1.0-10.0) Eosinophils (%) (Auto) 0.0 % (0.0-3.0) 0.2 % (0.0-3.0) Basophils (%) (Auto) 0.2 % (0.0-2.0) 0.2 % (0.0-2.0) Vancomycin Level Trough 4.9 ug/mL (5.0-12.0) L Activated Partial Thromboplast Time 54 SEC (23-33) H Sodium Level 138 MMOL/L (136-145) Potassium Level 3.2 MMOL/L (3.5-5.1) L Chloride Level 109 MMOL/L (98-107) H Carbon Dioxide Level 22 MMOL/L (21-32) Anion Gap 7 mmol/L (5-15) Blood Urea Nitrogen 10 mg/dL (7-18) Creatinine 0.4 MG/DL (0.55-1.30) L Estimat Glomerular Filtration Rate mL/min (>60) Glucose Level 132 MG/DL (74-106) H Calcium Level 7.4 MG/DL (8.5-10.1) L Magnesium Level 1.5 MG/DL (1.8-2.4) L Arterial Blood pH 7.390 (7.350-7.450) 7.410 (7.350-7.450) Arterial Blood Partial Pressure CO2 39.9 mmHg (35.0-45.0) 32.8 mmHg (35.0-45.0) L Arterial Blood Partial Pressure O2 43.9 mmHg (75.0-100.0) 104.8 mmHg (75.0-100.0) H Arterial Blood HCO3 23.6 mmol/L (22.0-26.0) 20.6 mmol/L (22.0-26.0) L Arterial Blood Oxygen Saturation 76.3 % (92.0-98.0) L 97.2 % (92.0-98.0) Arterial Blood Base Excess -1.2 -3.4 Jamie Test Positive Positive Test 07/20/17 12:30 Activated Partial Thromboplast Time 88 SEC (23-33) H Troponin I 2.953 ng/mL (0.000-0.056) Objective HEAD AND NECK: Shows no JVD. LUNGS: Decreased breath sounds. Coarse rhonchi. She is orally intubated. CARDIOVASCULAR: Shows regular S1 and S2 with no gallop. ABDOMEN: Soft. EXTREMITIES: No pitting edema. CHELSIE CHAIDEZ Jul 20, 2017 19:47
[2017-07-20] MEDS: Dyna-Hex 2% Top Sol 2oz TOPIC SCH (20:31)
[2017-07-20] MEDS: Iron Sucrose 100 MG in NS 55 ML IV SCH (20:45)
[2017-07-20] MEDS: Vancomycin 1gm in D5W 275ml IVPB SCH (22:00)
[2017-07-21] VITALS (23 sets, daily range): BP systolic 104–155; BP diastolic 42–97
[2017-07-21] MEDS: Pantoprazole 80 MG in NS 250 ML IV SCH ×3 (02:22→15:34)
[2017-07-21 05:52] LABS: ALANINE AMINOTRANSFERASE 16 U/L (12-78); ALBUMIN 1.4 G/DL (3.4-5.0); ALBUMIN/GLOBULIN RATIO 0.4 (1.0-2.7); ALKALINE PHOSPHATASE 44 U/L (46-116); ANION GAP 6 mmol/L (5-15); ASPARTATE AMINO TRANSFERASE 27 U/L (15-37); BILIRUBIN,TOTAL 0.2 MG/DL (0.2-1.0); BLOOD UREA NITROGEN 6 mg/dL (7-18); CALCIUM 7.6 MG/DL (8.5-10.1); CARBON DIOXIDE 27 MMOL/L (21-32); CHLORIDE 107 MMOL/L (98-107); CREATININE 0.5 MG/DL (0.55-1.30); POTASSIUM 2.9 MMOL/L (3.5-5.1); SODIUM 140 MMOL/L (136-145)
--- NOTE | 2017-07-21 09:31 | Pulmonolgy Critical Care Note ---
Critical Care - Asmt/Plan Problems: (1) Ventilator dependent (2) Pneumonia (3) Elevated troponin (4) Septic shock (5) Demand ischemia of myocardium (6) Transaminitis (7) CVA (cerebral vascular accident) (8) Ischemic cardiomyopathy (9) Alzheimer's dementia (10) CAD s/p PCI (11) diffuse severe gastropathy (12) lives at snf (13) paroxsymal atrial fibrillation (14) Acute on chronic diastolic heart failure (15) NSTEMI (non-ST elevated myocardial infarction) (16) Failure to thrive (17) Functional quadriplegia (18) Generalized weakness (19) S/P percutaneous endoscopic gastrostomy (PEG) tube placement Assessment/Plan: -Continue SBT -Check ABG -Extubate if parameters acceptable -Hold TF's in anticipation of possible extubation -PRN HHN's -Abx per ID -PPI gtt & IV Venofer, monitor for bleeding, F/U GI recs -[facility] -Monitor volumes --> continue to hold IVF, replete K -Troponin downtrending, F/U cards recs -Wound care -FC. continue to discuss GOC D/W [employer] and RT CC 45 Critical Care - Objective Last 24 Hour Vital Signs Date Time Temp Pulse Resp B/P (MAP) Pulse Ox O2 Delivery O2 Flow Rate FiO2 07/21/17 08:00 98.2 75 21 137/58 99 Mechanical Ventilator 30 07/21/17 08:00 75 07/21/17 08:00 30 07/21/17 07:40 30 07/21/17 07:31 73 20 30 07/21/17 06:00 84 26 149/76 99 Mechanical Ventilator 30 07/21/17 05:48 88 30 30 07/21/17 05:00 83 26 155/42 98 Mechanical Ventilator 30 07/21/17 04:00 89 07/21/17 04:00 30 07/21/17 04:00 98.3 89 23 149/66 97 Mechanical Ventilator 30 07/21/17 03:00 79 23 142/77 97 Mechanical Ventilator 30 07/21/17 02:41 83 30 30 07/21/17 02:00 62 17 121/48 98 Mechanical Ventilator 30 07/21/17 01:47 66 20 30 07/21/17 01:00 61 19 119/43 100 Mechanical Ventilator 30 07/21/17 00:00 30 07/21/17 00:00 97.9 62 18 124/45 100 Mechanical Ventilator 30 07/21/17 00:00 63 1817 23:41 59 16 30 17 23:00 78 20 154/61 100 Mechanical Ventilator 30 17 22:15 133/54 17 22:00 84 20 154/61 100 Mechanical Ventilator 30 07/20/17 21:00 84 20 138/71 100 Mechanical Ventilator 30 17 20:49 87 31 30 18/17 20:46 86 130/72 17 20:00 30 17 20:00 66 17 20:00 97.9 66 20 122/4 100 Mechanical Ventilator 30 07/20/17 19:00 59 20 123/73 100 Mechanical Ventilator 30 17 18:00 86 26 115/44 98 Mechanical Ventilator 30 17 17:35 61 20 30 17 17:25 121 45 30 17 17:00 86 26 134/67 98 Mechanical Ventilator 30 07/20/17 16:00 98.1 62 20 107/42 98 Mechanical Ventilator 30 07/20/17 16:00 30 17 15:51 64 18/17 15:26 30 17 15:22 100 17 15:17 72 23 30 07/20/17 15:14 61 16 30 07/20/17 15:00 75 21 124/57 99 Mechanical Ventilator 30 07/20/17 14:00 55 16 116/44 100 Mechanical Ventilator 40 17 13:05 56 18 40 17 13:00 58 20 112/47 100 Mechanical Ventilator 40 07/20/17 12:00 40 17 12:00 98.0 67 16 117/56 98 Mechanical Ventilator 40 17 11:42 67 07/20/17 11:00 105 28 178/85 98 Mechanical Ventilator 40 18/17 10:55 100 27 40 18/17 10:50 40 18/17 10:00 63 22 112/47 100 Mechanical Ventilator 40 18/17 09:40 100 18/17 09:40 69 23 40 12/18/17 09:40 40 07/20/17 09:36 64 07/20/17 09:30 60 23 40 Status: awake Condition: improving HEENT: atraumatic, normocephalic, other - ETT Lungs: clear Heart: HR/BP stable Abdomen: soft, non-tender, active bowel sounds, feeding tube Extremities: no C/C/E Critical Care - Subjective ROS Limited/Unobtainable: Yes ICU Day: 6 Intubation Day: 6 Interval Events: Wasnt extubated yesterday, became agitated after a few hours on SBT Sedation held TF's held Etelvina SBT No cough, no secretions, no F/C Awake and alert Condition: improving IV Access: central EKG Rhythm: Sinus Rhythm FI02: 30 Vent Support Breath Rate: 16 Vent Support Mode: CPAP Vent Tidal Volume: 500 Sputum Amount: Scant PEEP: 5.0 PIP: 22 Tube Feeding Amount: 50 I&O: Intake and Output 07/21/17 07/22/17 19:00 07:00 Intake Total 39 ml Output Total 50 ml Balance -11 ml IV Total 39 ml Output Urine Total 50 ml ET-Tube: 7.5 ET Position: 22 Labs: Laboratory Tests Test 07/20/17 10:20 07/20/17 10:50 07/20/17 12:30 07/21/17 04:00 Arterial Blood pH 7.390 (7.350-7.450) 7.410 (7.350-7.450) Arterial Blood Partial Pressure CO2 39.9 mmHg (35.0-45.0) 32.8 mmHg (35.0-45.0) L Arterial Blood Partial Pressure O2 43.9 mmHg (75.0-100.0) 104.8 mmHg (75.0-100.0) H Arterial Blood HCO3 23.6 mmol/L (22.0-26.0) 20.6 mmol/L (22.0-26.0) L Arterial Blood Oxygen Saturation 76.3 % (92.0-98.0) L 97.2 % (92.0-98.0) Arterial Blood Base Excess -1.2 -3.4 Jamie Test Positive Positive Activated Partial Thromboplast Time 88 SEC (23-33) H 70 SEC (23-33) H Troponin I 2.953 ng/mL (0.000-0.056) Sodium Level 140 MMOL/L (136-145) Potassium Level 2.9 MMOL/L (3.5-5.1) L Chloride Level 107 MMOL/L (98-107) Carbon Dioxide Level 27 MMOL/L (21-32) Anion Gap 6 mmol/L (5-15) Blood Urea Nitrogen 6 mg/dL (7-18) L Creatinine 0.5 MG/DL (0.55-1.30) L Estimat Glomerular Filtration Rate mL/min (>60) Glucose Level 84 MG/DL (74-106) Calcium Level 7.6 MG/DL (8.5-10.1) L Total Bilirubin 0.2 MG/DL (0.2-1.0) Aspartate Amino Transf (AST/SGOT) 27 U/L (15-37) Alanine Aminotransferase (ALT/SGPT) 16 U/L (12-78) Alkaline Phosphatase 44 U/L (46-116) L Total Protein 4.9 G/DL (6.4-8.2) L Albumin 1.4 G/DL (3.4-5.0) L Globulin 3.5 g/dL Albumin/Globulin Ratio 0.4 (1.0-2.7) L FRANCOIS ZUNIGA M.D. Jul 21, 2017 09:31
[2017-07-21] MEDS: Metoprolol Tartrate 12.5mg TAB ORAL SCH ×2 (09:45→21:02)
[2017-07-21] MEDS: Aspirin Baby 81mg NG SCH (09:45)
--- NOTE | 2017-07-21 12:32 | General Progress Note ---
Assessment/Plan Problem List: (1) Acute respiratory failure with hypoxia and hypercapnia ICD Codes: J96.01 - Acute respiratory failure with hypoxia; J96.02 - Acute respiratory failure with hypercapnia SNOMED: 32286607, 44547420, 524838973 (2) Severe sepsis ICD Codes: A41.9 - Sepsis, unspecified organism; R65.20 - Severe sepsis without septic shock SNOMED: 55975680 (3) HCAP vs Aspiration pneumonia (4) UTI (urinary tract infection) ICD Codes: N39.0 - Urinary tract infection, site not specified SNOMED: 95880319 (5) Lactic acid acidosis ICD Codes: E87.2 - Acidosis SNOMED: 87567261 (6) NSTEMI (non-ST elevated myocardial infarction) ICD Codes: I21.4 - Non-ST elevation (NSTEMI) myocardial infarction SNOMED: 900553034 (7) Acute on chronic anemia (8) Hyponatremia ICD Codes: E87.1 - Hypo-osmolality and hyponatremia SNOMED: 82523330 (9) paroxsymal atrial fibrillation (10) CAD s/p PCI (11) Ischemic cardiomyopathy ICD Codes: I25.5 - Ischemic cardiomyopathy SNOMED: 212888628 (12) CVA (cerebral vascular accident) ICD Codes: I63.9 - Cerebral infarction, unspecified SNOMED: 799888888 (13) Alzheimer's dementia ICD Codes: G30.9 - Alzheimer's disease, unspecified SNOMED: 24439156 Status: stable Assessment/Plan Continue in ICU Pulm, cardiology, ID, GI consulted, appreciate rec's s/p extubation on 07/21/17 Cont empiric vanco, zosyn, azithro per ID (07/16-), s/p amikacin F/u cultures Trend CBC, BMP, lactate Trend trop/EKG --> trop downtrending F/u TTE --> 45% EF with mild LVDD Cont heparin gtt per cardiology (Eliquis on hold) s/p 1 unit pRBC transfusion 07/17. Gastric lavage on 07/17 showed e/o bleeding but currently no active signs of bleeding Patient will eventually need EGD/colonoscopy to assess for GIB given acute drop in hemoglobin and positive FOBT. However, patient is unstable at the moment given NSTEMI/elevated trops. Awaiting cardiac clearance Continue PPI gtt Continue IV venofer Cont G-tube feedings per GI Supportive care DVT Prophylaxis: SCD, heparin gtt Code Status: Full per discussion w/ pt's DPOA/daughter Hospital Classification Declaration: Based on this initial evaluation, and depending on the patient's clinical course, I anticipate that this patient will require hospitalization for 2-3 days for acute respiratory faiure, severe sepsis and close respiratory/hemodynamic monitoring. Disposition: Once the patient is stable to leave the hospital, I anticipate the patient will likely be discharged to the following environment: back to SNF At the time of my involvement, the patient's condition was critical with high potential for and/or physiologic deterioration secondary to acute respiratory failure, severe sepsis as delineated in the note above. On the above date of service, I spent a total of 37 minutes in the ICU evaluating, managing, and providing critical care services to this patient, including time spent documenting these activities, counseling patient/family, and coordinating care. Critical care services performed include: Telemetry Review Hemodynamic measurement interpretation Laboratory data review and interpretation Ventilator setting review, management, and adjustment Discussion of care plans with patient, family, and/or surrogate decision makers Discussion of patient's care with primary medical team, surgical team, and/or consulting service Decision to obtain further radiologic evaluation, after consideration of risk/ benefit ratio Review of most recent microbiology results with assessment and modification of antimicrobial coverage Discussion of patient's code status and further advancement towards the ultimate goals of care Plan outlined above discussed with patient/family, [employer], ICU team, and involved physicians/consultants. Time of note may not reflect time of encounter. Subjective Date patient seen: Jul 21, 2017 Time patient seen: 12:32 ROS Limited/Unobtainable: Yes Constitutional: Reports: no symptoms HEENT: Reports: no symptoms Cardiovascular: Reports: no symptoms Respiratory: Reports: no symptoms Gastrointestinal/Abdominal: Reports: no symptoms Genitourinary: Reports: no symptoms Neurologic/Psychiatric: Reports: no symptoms Endocrine: Reports: no symptoms Hematologic/Lymphatic: Reports: no symptoms Allergies: Coded Allergies: No Known Allergies (Unverified , 05/25/13) All Systems: reviewed and negative except above Subjective No acute o/n events Extubated earlier today. Awake, lethargic but arousable Objective Last 24 Hour Vital Signs Date Time Temp Pulse Resp B/P (MAP) Pulse Ox O2 Delivery O2 Flow Rate FiO2 07/21/17 11:00 71 23 108/66 100 Nasal Cannula 2.0 07/21/17 10:49 99 07/21/17 10:28 Nasal Cannula 2.0 28 07/21/17 10:28 98 Nasal Cannula 2.0 28 07/21/17 10:25 Nasal Cannula 2.0 28 07/21/17 10:00 68 21 137/57 100 Mechanical Ventilator 30 07/21/17 09:45 76 150/61 07/21/17 09:15 73 24 30 07/21/17 09:00 74 26 151/60 100 Mechanical Ventilator 30 07/21/17 08:00 98.2 75 21 137/58 99 Mechanical Ventilator 30 07/21/17 08:00 75 07/21/17 08:00 30 07/21/17 07:40 30 07/21/17 07:31 73 20 30 07/21/17 06:00 84 26 149/76 99 Mechanical Ventilator 30 07/21/17 05:48 88 30 30 07/21/17 05:00 83 26 155/42 98 Mechanical Ventilator 30 07/21/17 04:00 89 07/21/17 04:00 30 07/21/17 04:00 98.3 89 23 149/66 97 Mechanical Ventilator 30 07/21/17 03:00 79 23 142/77 97 Mechanical Ventilator 30 07/21/17 02:41 83 30 30 07/21/17 02:00 62 17 121/48 98 Mechanical Ventilator 30 07/21/17 01:47 66 20 30 07/21/17 01:00 61 19 119/43 100 Mechanical Ventilator 30 07/21/17 00:00 30 07/21/17 00:00 97.9 62 18 124/45 100 Mechanical Ventilator 30 07/21/17 00:00 63 07/20/17 23:41 59 16 30 07/20/17 23:00 78 20 154/61 100 Mechanical Ventilator 30 07/20/17 22:15 133/54 07/20/17 22:00 84 20 154/61 100 Mechanical Ventilator 30 07/20/17 21:00 84 20 138/71 100 Mechanical Ventilator 30 07/20/17 20:49 87 31 30 07/20/17 20:46 86 130/72 07/20/17 20:00 30 07/20/17 20:00 66 07/20/17 20:00 97.9 66 20 122/4 100 Mechanical Ventilator 30 07/20/17 19:00 59 20 123/73 100 Mechanical Ventilator 30 07/20/17 18:00 86 26 115/44 98 Mechanical Ventilator 30 07/20/17 17:35 61 20 30 07/20/17 17:25 121 45 30 07/20/17 17:00 86 26 134/67 98 Mechanical Ventilator 30 07/20/17 16:00 98.1 62 20 107/42 98 Mechanical Ventilator 30 07/20/17 16:00 30 07/20/17 15:51 64 07/20/17 15:26 30 07/20/17 15:22 100 07/20/17 15:17 72 23 30 07/20/17 15:14 61 16 30 07/20/17 15:00 75 21 124/57 99 Mechanical Ventilator 30 07/20/17 14:00 55 16 116/44 100 Mechanical Ventilator 40 07/20/17 13:05 56 18 40 07/20/17 13:00 58 20 112/47 100 Mechanical Ventilator 40 Intake and Output 07/21/17 07/22/17 19:00 07:00 Intake Total 267 ml Output Total 950 ml Balance -683 ml IV Total 117 ml Tube Feeding 150 ml Output Urine Total 950 ml Laboratory Tests 07/21/17 04:00: Activated Partial Thromboplast Time 70H, Sodium Level 140, Potassium Level 2.9L , Chloride Level 107, Carbon Dioxide Level 27, Anion Gap 6, Blood Urea Nitrogen 6L, Creatinine 0.5L, Estimat Glomerular Filtration Rate , Glucose Level 84, Calcium Level 7.6L, Total Bilirubin 0.2, Aspartate Amino Transf (AST/SGOT) 27, Alanine Aminotransferase (ALT/SGPT) 16, Alkaline Phosphatase 44L, Total Protein 4.9L, Albumin 1.4L, Globulin 3.5, Albumin/Globulin Ratio 0.4L 07/21/17 09:55: Arterial Blood pH 7.478H, Arterial Blood Partial Pressure CO2 34.2L, Arterial Blood Partial Pressure O2 92.8, Arterial Blood HCO3 24.8, Arterial Blood Oxygen Saturation 96.5, Arterial Blood Base Excess 1.4, Jamie Test Positive Height (Feet): 5 Height (Inches): 2.00 Weight (Pounds): 110 Objective General: awake, alert, lethargic Head: normocephalic, without obvious abnormality, atraumatic Eyes: conjunctivae/corneas clear. PERRL, EOM's intact Throat: lips, mucosa, and tongue normal. MMM Neck: supple, symmetrical, trachea midline, and no JVD Lungs: clear to auscultation bilaterally Heart: regular rate and rhythm, S1, S2 normal, no murmur, click, rub or gallop Abdomen: soft, non-tender, non-distended, bowel sounds normal; +PEG c/d/i Extremities: extremities normal, atraumatic, no cyanosis or edema Pulses: 2+ and symmetric Skin: skin color, texture, turgor normal; no rashes or lesions Neurologic: Kilo Manrique M.D. Jul 21, 2017 12:32
--- NOTE | 2017-07-21 13:41 | GI Progress Note ---
Assessment/Plan Problems: (1) S/P percutaneous endoscopic gastrostomy (PEG) tube placement ICD Codes: Z93.1 - Gastrostomy status SNOMED: 469541348 (2) Failure to thrive SNOMED: 02992780 (3) Ventilator dependent ICD Codes: Z99.11 - Dependence on respirator [ventilator] status SNOMED: 251946840 (4) NSTEMI (non-ST elevated myocardial infarction) ICD Codes: I21.4 - Non-ST elevation (NSTEMI) myocardial infarction SNOMED: 617565070 (5) Severe sepsis ICD Codes: A41.9 - Sepsis, unspecified organism; R65.20 - Severe sepsis without septic shock SNOMED: 65744985 (6) Elevated troponin ICD Codes: R74.8 - Abnormal levels of other serum enzymes SNOMED: 306367470, 506323994 (7) Anemia ICD Codes: D64.9 - Anemia, unspecified SNOMED: 640332906 (8) Weakness ICD Codes: R53.1 - Weakness SNOMED: 91729682 (9) Transaminitis ICD Codes: R74.0 - Nonspecific elevation of levels of transaminase and lactic acid dehydrogenase [LDH] SNOMED: 913969484 (10) Protein-calorie malnutrition, severe ICD Codes: E43 - Unspecified severe protein-calorie malnutrition SNOMED: 064191545 (11) Dehydration ICD Codes: E86.0 - Dehydration SNOMED: 31782960 (12) Septic shock ICD Codes: A41.9 - Sepsis, unspecified organism; R65.21 - Severe sepsis with septic shock SNOMED: 03643876 Status: progressing - patient appears more stable Status Narrative Discussed with Dr. Sierra. Assessment/Plan Assessment - respiratory failure - dysphagia, s/p prior GJ tube >> now changed to GT - UGIB - no plans for EGD at this time due to GA - NSTEMI - AMS - Anemia - OB stool positive Recommendations EGD to be scheduled pending cardiac clearance, will consider replacement of GJ tube if necessary. - patient is also on Eliquis which must dc 48-72 hours min prior any GI procedures Gastric Lavage 500 cc r/o UGIB >> POSITIVE, will require EGD when stable. hold GTFs >> cont IVFs monitor H&H closely cardiology f/u PPI gtt fu labs Subjective Subjective limited Objective Last 24 Hour Vital Signs Date Time Temp Pulse Resp B/P (MAP) Pulse Ox O2 Delivery O2 Flow Rate FiO2 07/21/17 12:00 98.1 71 19 128/62 96 Nasal Cannula 2.0 07/21/17 12:00 77 07/21/17 11:00 71 23 108/66 100 Nasal Cannula 2.0 07/21/17 10:49 99 07/21/17 10:28 Nasal Cannula 2.0 28 07/21/17 10:28 98 Nasal Cannula 2.0 28 07/21/17 10:25 Nasal Cannula 2.0 28 07/21/17 10:00 68 21 137/57 100 Mechanical Ventilator 30 07/21/17 09:45 76 150/61 07/21/17 09:15 73 24 30 07/21/17 09:00 74 26 151/60 100 Mechanical Ventilator 30 07/21/17 08:00 98.2 75 21 137/58 99 Mechanical Ventilator 30 07/21/17 08:00 75 07/21/17 08:00 30 07/21/17 07:40 30 07/21/17 07:31 73 20 30 07/21/17 06:00 84 26 149/76 99 Mechanical Ventilator 30 07/21/17 05:48 88 30 30 07/21/17 05:00 83 26 155/42 98 Mechanical Ventilator 30 07/21/17 04:00 89 07/21/17 04:00 30 07/21/17 04:00 98.3 89 23 149/66 97 Mechanical Ventilator 30 07/21/17 03:00 79 23 142/77 97 Mechanical Ventilator 30 07/21/17 02:41 83 30 30 07/21/17 02:00 62 17 121/48 98 Mechanical Ventilator 30 07/21/17 01:47 66 20 30 07/21/17 01:00 61 19 119/43 100 Mechanical Ventilator 30 07/21/17 00:00 30 07/21/17 00:00 97.9 62 18 124/45 100 Mechanical Ventilator 30 07/21/17 00:00 63 07/20/17 23:41 59 16 30 07/20/17 23:00 78 20 154/61 100 Mechanical Ventilator 30 07/20/17 22:15 133/54 07/20/17 22:00 84 20 154/61 100 Mechanical Ventilator 30 07/20/17 21:00 84 20 138/71 100 Mechanical Ventilator 30 07/20/17 20:49 87 31 30 07/20/17 20:46 86 130/72 07/20/17 20:00 30 07/20/17 20:00 66 07/20/17 20:00 97.9 66 20 122/4 100 Mechanical Ventilator 30 07/20/17 19:00 59 20 123/73 100 Mechanical Ventilator 30 07/20/17 18:00 86 26 115/44 98 Mechanical Ventilator 30 07/20/17 17:35 61 20 30 07/20/17 17:25 121 45 30 07/20/17 17:00 86 26 134/67 98 Mechanical Ventilator 30 07/20/17 16:00 98.1 62 20 107/42 98 Mechanical Ventilator 30 07/20/17 16:00 30 07/20/17 15:51 64 07/20/17 15:26 30 07/20/17 15:22 100 07/20/17 15:17 72 23 30 07/20/17 15:14 61 16 30 07/20/17 15:00 75 21 124/57 99 Mechanical Ventilator 30 07/20/17 14:00 55 16 116/44 100 Mechanical Ventilator 40 Intake and Output 07/21/17 07/22/17 19:00 07:00 Intake Total 395 ml Output Total 1030 ml Balance -635 ml IV Total 195 ml Tube Feeding 200 ml Output Urine Total 1030 ml Laboratory Tests Test 07/21/17 04:00 07/21/17 09:55 Activated Partial Thromboplast Time 70 SEC (23-33) H Sodium Level 140 MMOL/L (136-145) Potassium Level 2.9 MMOL/L (3.5-5.1) L Chloride Level 107 MMOL/L (98-107) Carbon Dioxide Level 27 MMOL/L (21-32) Anion Gap 6 mmol/L (5-15) Blood Urea Nitrogen 6 mg/dL (7-18) L Creatinine 0.5 MG/DL (0.55-1.30) L Estimat Glomerular Filtration Rate mL/min (>60) Glucose Level 84 MG/DL (74-106) Calcium Level 7.6 MG/DL (8.5-10.1) L Total Bilirubin 0.2 MG/DL (0.2-1.0) Aspartate Amino Transf (AST/SGOT) 27 U/L (15-37) Alanine Aminotransferase (ALT/SGPT) 16 U/L (12-78) Alkaline Phosphatase 44 U/L (46-116) L Total Protein 4.9 G/DL (6.4-8.2) L Albumin 1.4 G/DL (3.4-5.0) L Globulin 3.5 g/dL Albumin/Globulin Ratio 0.4 (1.0-2.7) L Arterial Blood pH 7.478 (7.350-7.450) Arterial Blood Partial Pressure CO2 34.2 mmHg (35.0-45.0) L Arterial Blood Partial Pressure O2 92.8 mmHg (75.0-100.0) Arterial Blood HCO3 24.8 mmol/L (22.0-26.0) Arterial Blood Oxygen Saturation 96.5 % (92.0-98.0) Arterial Blood Base Excess 1.4 Jamie Test Positive Height (Feet): 5 Height (Inches): 2.00 Weight (Pounds): 110 General Appearance: no apparent distress, alert Cardiovascular: normal rate Respiratory/Chest: normal breath sounds, no respiratory distress, other - NC Abdominal Exam: normal bowel sounds, non tender, soft, GT site - c/d/i Extremities: non-tender [place] Colon N.P. Jul 21, 2017 13:41
[2017-07-21] MEDS: Morphine Sulfate 2mg/ml Inj IVP PRN (15:01)
[2017-07-21] MEDS ORDERED: GI COCKTAIL ORAL PRN (15:30)
[2017-07-21] MEDS: cefTRIAXone 1 GM in D5W 50 ML IVPB SCH (16:29)
--- NOTE | 2017-07-21 18:16 | Cardiology Report ---
APPROVED REPORT EKG Measurement Heart [id number] sinus with pacs Septal infarct, age undetermined Abnormal ECG
--- NOTE | 2017-07-21 19:18 | General Progress Note ---
Assessment/Plan Assessment/Plan Asked to see patient for torn GJ tube GJ tube tested - non functional - wall torn and leaking. tube removed and replaced with 20 Fr GT replacement catheter GI f/u per Dr. Rigo Hendricks MD Subjective Allergies: Coded Allergies: No Known Allergies (Unverified , 05/25/13) Objective Last 24 Hour Vital Signs Date Time Temp Pulse Resp B/P (MAP) Pulse Ox O2 Delivery O2 Flow Rate FiO2 07/21/17 18:00 114 16 142/97 80 Nasal Cannula 4.0 07/21/17 17:00 75 16 136/57 99 Nasal Cannula 2.0 07/21/17 16:00 98.4 79 20 135/58 98 Nasal Cannula 2.0 07/21/17 16:00 73 07/21/17 15:00 82 25 141/60 94 Nasal Cannula 2.0 07/21/17 14:00 80 25 128/50 95 Nasal Cannula 2.0 07/21/17 13:00 79 24 112/54 94 Nasal Cannula 2.0 07/21/17 12:00 98.1 71 19 128/62 96 Nasal Cannula 2.0 07/21/17 12:00 77 07/21/17 11:00 71 23 108/66 100 Nasal Cannula 2.0 07/21/17 10:49 99 07/21/17 10:28 Nasal Cannula 2.0 28 07/21/17 10:28 98 Nasal Cannula 2.0 28 07/21/17 10:25 Nasal Cannula 2.0 28 07/21/17 10:00 68 21 137/57 100 Mechanical Ventilator 30 07/21/17 09:45 76 150/61 07/21/17 09:15 73 24 30 07/21/17 09:00 74 26 151/60 100 Mechanical Ventilator 30 07/21/17 08:00 98.2 75 21 137/58 99 Mechanical Ventilator 30 07/21/17 08:00 75 07/21/17 08:00 30 07/21/17 07:40 30 07/21/17 07:31 73 20 30 07/21/17 06:00 84 26 149/76 99 Mechanical Ventilator 30 07/21/17 05:48 88 30 30 07/21/17 05:00 83 26 155/42 98 Mechanical Ventilator 30 07/21/17 04:00 89 07/21/17 04:00 30 12/19/17 04:00 98.3 89 23 149/66 97 Mechanical Ventilator 30 07/21/17 03:00 79 23 142/77 97 Mechanical Ventilator 30 07/21/17 02:41 83 30 30 07/21/17 02:00 62 17 121/48 98 Mechanical Ventilator 30 07/21/17 01:47 66 20 30 07/21/17 01:00 61 19 119/43 100 Mechanical Ventilator 30 07/21/17 00:00 30 07/21/17 00:00 97.9 62 18 124/45 100 Mechanical Ventilator 30 07/21/17 00:00 63 07/20/17 23:41 59 16 30 07/20/17 23:00 78 20 154/61 100 Mechanical Ventilator 30 07/20/17 22:15 133/54 07/20/17 22:00 84 20 154/61 100 Mechanical Ventilator 30 07/20/17 21:00 84 20 138/71 100 Mechanical Ventilator 30 07/20/17 20:49 87 31 30 07/20/17 20:46 86 130/72 07/20/17 20:00 30 07/20/17 20:00 66 07/20/17 20:00 97.9 66 20 122/4 100 Mechanical Ventilator 30 Intake and Output 07/21/17 07/22/17 19:00 07:00 Intake Total 892 ml Output Total 1400 ml Balance -508 ml IV Total 592 ml Tube Feeding 300 ml Output Urine Total 1400 ml # Bowel Movements 2 Laboratory Tests 07/21/17 04:00: Activated Partial Thromboplast Time 70H, Sodium Level 140, Potassium Level 2.9L , Chloride Level 107, Carbon Dioxide Level 27, Anion Gap 6, Blood Urea Nitrogen 6L, Creatinine 0.5L, Estimat Glomerular Filtration Rate , Glucose Level 84, Calcium Level 7.6L, Total Bilirubin 0.2, Aspartate Amino Transf (AST/SGOT) 27, Alanine Aminotransferase (ALT/SGPT) 16, Alkaline Phosphatase 44L, Total Protein 4.9L, Albumin 1.4L, Globulin 3.5, Albumin/Globulin Ratio 0.4L 07/21/17 09:55: Arterial Blood pH 7.478H, Arterial Blood Partial Pressure CO2 34.2L, Arterial Blood Partial Pressure O2 92.8, Arterial Blood HCO3 24.8, Arterial Blood Oxygen Saturation 96.5, Arterial Blood Base Excess 1.4, Jamie Test Positive 07/21/17 18:14: Arterial Blood pH 7.262L, Arterial Blood Partial Pressure CO2 54.4H, Arterial Blood Partial Pressure O2 53.7L, Arterial Blood HCO3 24.0, Arterial Blood Oxygen Saturation 81.3L, Arterial Blood Base Excess -3.4, Jamie Test Positive Height (Feet): 5 Height (Inches): 2.00 Weight (Pounds): 110 BIENVENIDO HENDRICKS Jul 21, 2017 19:18
[2017-07-21] MEDS: Ipratropium 0.02% Inh Soln 2.5ml UD HHN SCH (19:47)
[2017-07-21] MEDS: Levalbuterol Inh UD 1.25mg/0.5ml HHN SCH (19:47)
[2017-07-21] MEDS: LORazepam Inj 2mg/ml 1ml IV PRN (19:53)
[2017-07-21] MEDS ORDERED: Pantoprazole Inj IVP SCH (21:00)
[2017-07-21] MEDS: Dyna-Hex 2% Top Sol 2oz TOPIC SCH (21:01)
[2017-07-21] MEDS: Iron Sucrose 100 MG in NS 55 ML IV SCH (21:02)
--- NOTE | 2017-07-21 21:16 | Cardiology Progress Note ---
Assessment/Plan Assessment/Plan 1. [id number] myocardial infarction, echocardiogram showed LVEF of 50%, continue medical therapy. 2. Acute respiratory failure. 3. Hx of HTN 4. Sinus tachycardia likely due to sepsis resolved. Subjective Subjective Sinus rhythm at 82. On bipap mask. Objective Last 24 Hour Vital Signs Date Time Temp Pulse Resp B/P (MAP) Pulse Ox O2 Delivery O2 Flow Rate FiO2 07/21/17 21:02 82 119/84 07/21/17 20:35 60 07/21/17 20:34 89 34 Bi-pap 60 07/21/17 20:34 82 26 100 Bi-pap 60 07/21/17 20:29 83 25 100 Full Face 100 07/21/17 20:22 88 34 100 Bi-pap 100 07/21/17 20:21 40 07/21/17 20:21 88 26 100 Bi-pap 40 07/21/17 20:20 89 34 Bi-pap 100 07/21/17 20:19 88 23 100 Bi-pap 100 07/21/17 19:00 108 26 153/84 94 Bi-pap 100 07/21/17 18:00 114 16 142/97 80 Nasal Cannula 4.0 07/21/17 17:00 75 16 136/57 99 Nasal Cannula 2.0 07/21/17 16:00 98.4 79 20 135/58 98 Nasal Cannula 2.0 07/21/17 16:00 73 07/21/17 15:00 82 25 141/60 94 Nasal Cannula 2.0 07/21/17 14:00 80 25 128/50 95 Nasal Cannula 2.0 07/21/17 13:00 79 24 112/54 94 Nasal Cannula 2.0 07/21/17 12:00 98.1 71 19 128/62 96 Nasal Cannula 2.0 07/21/17 12:00 77 07/21/17 11:00 71 23 108/66 100 Nasal Cannula 2.0 07/21/17 10:49 99 07/21/17 10:28 Nasal Cannula 2.0 28 07/21/17 10:28 98 Nasal Cannula 2.0 28 07/21/17 10:25 Nasal Cannula 2.0 28 07/21/17 10:00 68 21 137/57 100 Mechanical Ventilator 30 07/21/17 09:45 76 150/61 07/21/17 09:15 73 24 30 07/21/17 09:00 74 26 151/60 100 Mechanical Ventilator 30 07/21/17 08:00 98.2 75 21 137/58 99 Mechanical Ventilator 30 07/21/17 08:00 75 07/21/17 08:00 30 07/21/17 07:40 30 07/21/17 07:31 73 20 30 07/21/17 06:00 84 26 149/76 99 Mechanical Ventilator 30 07/21/17 05:48 88 30 30 07/21/17 05:00 83 26 155/42 98 Mechanical Ventilator 30 07/21/17 04:00 89 07/21/17 04:00 30 07/21/17 04:00 98.3 89 23 149/66 97 Mechanical Ventilator 30 07/21/17 03:00 79 23 142/77 97 Mechanical Ventilator 30 07/21/17 02:41 83 30 30 07/21/17 02:00 62 17 121/48 98 Mechanical Ventilator 30 07/21/17 01:47 66 20 30 07/21/17 01:00 61 19 119/43 100 Mechanical Ventilator 30 07/21/17 00:00 30 07/21/17 00:00 97.9 62 18 124/45 100 Mechanical Ventilator 30 07/21/17 00:00 63 07/20/17 23:41 59 16 30 07/20/17 23:00 78 20 154/61 100 Mechanical Ventilator 30 07/20/17 22:15 133/54 07/20/17 22:00 84 20 154/61 100 Mechanical Ventilator 30 Intake and Output 07/21/17 07/22/17 19:00 07:00 Intake Total 901 ml Output Total 1420 ml Balance -519 ml IV Total 631 ml Tube Feeding 270 ml Output Urine Total 1420 ml # Bowel Movements 2 2D Echo: LVEF 50%, RVSP 28 mmHg, Grade I LVDD, Mild LVH Laboratory Tests Test 07/21/17 04:00 07/21/17 09:55 07/21/17 18:14 07/21/17 21:15 Activated Partial Thromboplast Time 70 SEC (23-33) H Sodium Level 140 MMOL/L (136-145) Potassium Level 2.9 MMOL/L (3.5-5.1) L Chloride Level 107 MMOL/L (98-107) Carbon Dioxide Level 27 MMOL/L (21-32) Anion Gap 6 mmol/L (5-15) Blood Urea Nitrogen 6 mg/dL (7-18) L Creatinine 0.5 MG/DL (0.55-1.30) L Estimat Glomerular Filtration Rate mL/min (>60) Glucose Level 84 MG/DL (74-106) Calcium Level 7.6 MG/DL (8.5-10.1) L Total Bilirubin 0.2 MG/DL (0.2-1.0) Aspartate Amino Transf (AST/SGOT) 27 U/L (15-37) Alanine Aminotransferase (ALT/SGPT) 16 U/L (12-78) Alkaline Phosphatase 44 U/L (46-116) L Total Protein 4.9 G/DL (6.4-8.2) L Albumin 1.4 G/DL (3.4-5.0) L Globulin 3.5 g/dL Albumin/Globulin Ratio 0.4 (1.0-2.7) L Arterial Blood pH 7.478 (7.350-7.450) 7.262 (7.350-7.450) Arterial Blood Partial Pressure CO2 34.2 mmHg (35.0-45.0) L 54.4 mmHg (35.0-45.0) H Arterial Blood Partial Pressure O2 92.8 mmHg (75.0-100.0) 53.7 mmHg (75.0-100.0) L Arterial Blood HCO3 24.8 mmol/L (22.0-26.0) 24.0 mmol/L (22.0-26.0) Arterial Blood Oxygen Saturation 96.5 % (92.0-98.0) 81.3 % (92.0-98.0) L Arterial Blood Base Excess 1.4 -3.4 Jamie Test Positive Positive Vancomycin Level Trough Pending Objective HEAD AND NECK: Shows no JVD. LUNGS: Decreased breath sounds. Coarse rhonchi. She is orally intubated. CARDIOVASCULAR: Shows regular S1 and S2 with no gallop. ABDOMEN: Soft. EXTREMITIES: No pitting edema. CHELSIE CHAIDEZ Jul 21, 2017 21:16
[2017-07-21] MEDS: Vancomycin 1gm in D5W 275ml IVPB SCH (23:01)
[2017-07-21] MEDS: Heparin 25,000u/D5W 500ml 500 ML IV SCH (23:02)
[2017-07-22] VITALS (24 sets, daily range): BP systolic 95–134; BP diastolic 42–86
[2017-07-22] MEDS: Ipratropium 0.02% Inh Soln 2.5ml UD HHN SCH ×4 (01:37→19:09)
[2017-07-22] MEDS: Pantoprazole 80 MG in NS 250 ML IV SCH ×3 (02:00→22:34)
[2017-07-22] MEDS: LORazepam Inj 2mg/ml 1ml IV PRN ×4 (03:51→21:10)
[2017-07-22 04:56] LABS: BASOPHILS % (AUTO) 1.2 % (0.0-2.0); EOSINOPHILS % (AUTO) 0.1 % (0.0-3.0); HEMATOCRIT 26.5 % (37.0-47.0); LYMPHOCYTES % (AUTO) 15.2 % (20.0-45.0); MEAN CORPUSCULAR VOLUME 88 FL (80-99); MONOCYTES % (AUTO) 5.4 % (1.0-10.0); NEUTROPHILS % (AUTO) 78.2 % (45.0-75.0); PLATELET COUNT 201 K/UL (150-450); RED CELL DISTRIBUTION WIDTH 19.9 % (11.6-14.8); WHITE BLOOD COUNT 6.7 K/UL (4.8-10.8)
[2017-07-22 05:09] LABS: ALANINE AMINOTRANSFERASE 14 U/L (12-78); ALBUMIN 1.4 G/DL (3.4-5.0); ALBUMIN/GLOBULIN RATIO 0.4 (1.0-2.7); ALKALINE PHOSPHATASE 44 U/L (46-116); ANION GAP 6 mmol/L (5-15); ASPARTATE AMINO TRANSFERASE 23 U/L (15-37); BILIRUBIN,TOTAL 0.2 MG/DL (0.2-1.0); BLOOD UREA NITROGEN 7 mg/dL (7-18); CALCIUM 7.6 MG/DL (8.5-10.1); CARBON DIOXIDE 26 MMOL/L (21-32); CHLORIDE 109 MMOL/L (98-107); CREATININE 0.5 MG/DL (0.55-1.30); POTASSIUM 3.7 MMOL/L (3.5-5.1); SODIUM 141 MMOL/L (136-145)
[2017-07-22] MEDS ORDERED: Heparin 25,000u/D5W 500ml 500 ML IV SCH ×2 (06:00→13:00)
[2017-07-22] MEDS ORDERED: Heparin Sod 1000 units/ml 10ml IV ONE (06:00)
[2017-07-22] MEDS: Levalbuterol Inh UD 1.25mg/0.5ml HHN SCH ×3 (07:05→19:09)
[2017-07-22] MEDS: Aspirin Baby 81mg NG SCH (09:00)
[2017-07-22] MEDS: Vancomycin 1250mg/D5W 250ml IVPB SCH (09:00)
[2017-07-22] MEDS: Metoprolol Tartrate 12.5mg TAB ORAL SCH ×2 (09:00→21:04)
--- NOTE | 2017-07-22 11:25 | Pulmonolgy Critical Care Note ---
Critical Care - Asmt/Plan Problems: (1) Ventilator dependent Assessment & Plan: Extubated 07/21, placed on BiPAP later the same day for hypoxemia and hypercapnia (2) Pneumonia (3) Elevated troponin (4) Septic shock (5) Demand ischemia of myocardium (6) Transaminitis (7) CVA (cerebral vascular accident) (8) Ischemic cardiomyopathy (9) Alzheimer's dementia (10) CAD s/p PCI (11) diffuse severe gastropathy (12) lives at snf (13) paroxsymal atrial fibrillation (14) Acute on chronic diastolic heart failure (15) NSTEMI (non-ST elevated myocardial infarction) (16) Failure to thrive (17) Functional quadriplegia (18) Generalized weakness (19) S/P percutaneous endoscopic gastrostomy (PEG) tube placement Assessment/Plan: -Continue BiPAP --> will attempt to wean off throughout the day -Check ABG -Hold TF's while on BiPAP -Atrovent and Xopenex HHN's q6WA and q4 PRN -Abx per ID -IV PPI & IV Venofer, monitor for bleeding, F/U GI recs -[facility] per cards -STAT CT head, neuro eval -Monitor volumes -Troponin downtrending, F/U cards recs -Wound care -FC. continue to discuss GOC D/W SEED SORTER and RT CC 45 Critical Care - Objective Last 24 Hour Vital Signs Date Time Temp Pulse Resp B/P (MAP) Pulse Ox O2 Delivery O2 Flow Rate FiO2 07/22/17 11:00 70 28 120/54 95 Bi-pap 50 07/22/17 10:30 81 33 92 Facial 50 07/22/17 10:00 70 23 112/63 95 Bi-pap 50 07/22/17 09:24 50 07/22/17 09:00 81 112/63 07/22/17 09:00 50.0 07/22/17 09:00 71 23 109/65 94 Bi-pap 50 07/22/17 08:30 117 36 82 Facial 100 07/22/17 08:30 100.0 07/22/17 08:00 110 07/22/17 08:00 97.9 102 26 130/86 90 Nasal Cannula 4.0 07/22/17 07:20 80 27 94 Nasal Cannula 4.0 36 07/22/17 07:19 79 30 Nasal Cannula 4.0 36 07/22/17 07:09 40 07/22/17 07:09 81 27 94 Nasal Cannula 4.0 36 07/22/17 07:08 36 07/22/17 07:08 76 32 95 Nasal Cannula 4.0 36 07/22/17 07:00 79 21 108/48 95 Nasal Cannula 4.0 07/22/17 06:00 72 23 111/53 100 Nasal Cannula 4.0 07/22/17 05:17 75 21 100 Facial 60 07/22/17 05:00 70 23 109/56 100 Bi-pap 60 07/22/17 04:00 66 07/22/17 04:00 97.6 68 25 110/42 100 Bi-pap 60 07/22/17 03:32 71 22 100 Full Face 60 07/22/17 03:00 80 23 108/47 100 Bi-pap 60 07/22/17 02:00 71 23 108/54 100 Bi-pap 60 07/22/17 01:55 82 34 Bi-pap 60 07/22/17 01:38 71 26 100 Full Face 60 07/22/17 01:37 60 07/22/17 01:37 72 26 60 Bi-pap 100 07/22/17 01:00 70 24 104/48 100 Bi-pap 60 07/22/17 00:00 64 07/22/17 00:00 97.8 64 22 108/49 100 Bi-pap 60 07/21/17 23:16 62 20 100 Full Face 60 07/21/17 23:00 63 21 106/44 100 Bi-pap 60 07/21/17 22:15 104/47 07/21/17 22:00 61 22 104/47 100 Bi-pap 60 07/21/17 21:02 82 119/84 07/21/17 21:00 71 24 112/56 98 Bi-pap 60 07/21/17 20:35 60 07/21/17 20:34 89 34 Bi-pap 60 07/21/17 20:34 82 26 100 Bi-pap 60 07/21/17 20:29 83 25 100 Full Face 100 07/21/17 20:22 88 34 100 Bi-pap 100 07/21/17 20:21 40 07/21/17 20:21 88 26 100 Bi-pap 40 07/21/17 20:20 89 34 Bi-pap 100 07/21/17 20:19 88 23 100 Bi-pap 100 07/21/17 20:00 97.9 89 24 119/51 99 Bi-pap 100 07/21/17 20:00 89 07/21/17 19:00 108 26 153/84 94 Bi-pap 100 07/21/17 18:00 114 16 142/97 80 Nasal Cannula 4.0 07/21/17 17:00 75 16 136/57 99 Nasal Cannula 2.0 07/21/17 16:00 98.4 79 20 135/58 98 Nasal Cannula 2.0 07/21/17 16:00 73 07/21/17 15:00 82 25 141/60 94 Nasal Cannula 2.0 07/21/17 14:00 80 25 128/50 95 Nasal Cannula 2.0 07/21/17 13:00 79 24 112/54 94 Nasal Cannula 2.0 07/21/17 12:00 98.1 71 19 128/62 96 Nasal Cannula 2.0 07/21/17 12:00 77 Status: awake, other - on BiPAP Condition: critical HEENT: atraumatic, normocephalic Lungs: clear - but distatnt Heart: HR/BP stable Abdomen: soft, non-tender, active bowel sounds, feeding tube Extremities: no C/C/E Critical Care - Subjective ROS Limited/Unobtainable: Yes ICU Day: 7 Intubation Day: N/A - on BiPAP Interval Events: Extubated, initially did well on 2L NC, then became agitated and was retaining placed on BiPAP, O2 needs stable, attempting to remove earlier but desats when taken off, CXR pending Per RN speech was slurred earlier and weaker Condition: critical IV Access: PICC EKG Rhythm: Sinus Rhythm FI02: 50 Vent Support Breath Rate: 16 Vent Support Mode: CPAP Vent Tidal Volume: 500 Sputum Amount: None PEEP: 5.0 PIP: 14 Tube Feeding Amount: 50 I&O: Intake and Output 07/22/17 07/23/17 19:00 07:00 Intake Total 597.205 ml Output Total 110 ml Balance 487.205 ml IV Total 497.205 ml Tube Feeding 50 ml Other 50 ml Output Urine Total 110 ml ET-Tube: 7.5 ET Position: 23 Labs: Laboratory Tests Test 07/21/17 18:14 07/21/17 21:15 07/22/17 03:50 Arterial Blood pH 7.262 (7.350-7.450) Arterial Blood Partial Pressure CO2 54.4 mmHg (35.0-45.0) H Arterial Blood Partial Pressure O2 53.7 mmHg (75.0-100.0) L Arterial Blood HCO3 24.0 mmol/L (22.0-26.0) Arterial Blood Oxygen Saturation 81.3 % (92.0-98.0) L Arterial Blood Base Excess -3.4 Jamie Test Positive Vancomycin Level Trough 8.1 ug/mL (5.0-12.0) White Blood Count 6.7 K/UL (4.8-10.8) Red Blood Count 3.00 M/UL (4.20-5.40) L Hemoglobin 8.0 G/DL (12.0-16.0) L Hematocrit 26.5 % (37.0-47.0) L Mean Corpuscular Volume 88 FL (80-99) Mean Corpuscular Hemoglobin 26.6 PG (27.0-31.0) L Mean Corpuscular Hemoglobin Concent 30.2 G/DL (32.0-36.0) L Red Cell Distribution Width 19.9 % (11.6-14.8) H Platelet Count 201 K/UL (150-450) Mean Platelet Volume 8.2 FL (6.5-10.1) Neutrophils (%) (Auto) 78.2 % (45.0-75.0) H Lymphocytes (%) (Auto) 15.2 % (20.0-45.0) L Monocytes (%) (Auto) 5.4 % (1.0-10.0) Eosinophils (%) (Auto) 0.1 % (0.0-3.0) Basophils (%) (Auto) 1.2 % (0.0-2.0) Activated Partial Thromboplast Time 54 SEC (23-33) H Sodium Level 141 MMOL/L (136-145) Potassium Level 3.7 MMOL/L (3.5-5.1) Chloride Level 109 MMOL/L (98-107) H Carbon Dioxide Level 26 MMOL/L (21-32) Anion Gap 6 mmol/L (5-15) Blood Urea Nitrogen 7 mg/dL (7-18) Creatinine 0.5 MG/DL (0.55-1.30) L Estimat Glomerular Filtration Rate mL/min (>60) Glucose Level 105 MG/DL (74-106) Calcium Level 7.6 MG/DL (8.5-10.1) L Magnesium Level 1.6 MG/DL (1.8-2.4) L Total Bilirubin 0.2 MG/DL (0.2-1.0) Aspartate Amino Transf (AST/SGOT) 23 U/L (15-37) Alanine Aminotransferase (ALT/SGPT) 14 U/L (12-78) Alkaline Phosphatase 44 U/L (46-116) L Total Protein 5.0 G/DL (6.4-8.2) L Albumin 1.4 G/DL (3.4-5.0) L Globulin 3.6 g/dL Albumin/Globulin Ratio 0.4 (1.0-2.7) L HIV (1&2) Antibody Rapid Negative (NEGATIVE) FRANCOIS ZUNIGA M.D. Jul 22, 2017 11:25
--- NOTE | 2017-07-22 11:49 | Diagnostic Imaging Report ---
Indication: Reason For Exam: ABN CHST Technique: One view of the chest Comparison: 07/20/2017 Findings: Interim endotracheal tube removal. Interim marked increase in airspace opacities seen in the bilateral mid and lower lungs. There is also marked increased pleural fluid. Impression: Markedly increased pleural fluid and bilateral mid and lower lung infiltrates versus edema, over one day Interim extubation
--- NOTE | 2017-07-22 12:59 | Diagnostic Imaging Report ---
Indications: Altered mental status Technique: Spiral acquisitions obtained through the brain. Angled axial and coronal 5 x 5 mm slices were reconstructed. Total dose length product 1397.2 mGycm. CTDI vol(s) 70.38 mGy. Dose reduction achieved using automated exposure control Comparison: 10/08/2015 Findings: There is some image degradation due to motion artifact. There is a small right temporoparietal craniotomy/craniectomy defect again demonstrated. Again demonstrated is age-related enlargement of the ventricles and extra axial CSF spaces. Demonstrated is mild periventricular deep white matter chronic ischemic change. There is questionably left cerebellar encephalomalacia, although this just could be artifactual due to beam hardening and motion artifact. Tiny chronic lacunar infarct is now seen in the anterior limb of the right internal capsule, not evident previously. No other significant interim change Impression: Limited exam, as described Negative for acute intracranial bleed or mass effect Chronic and age-related changes, as described The CT scanner at [facility] is accredited by the [employer] and the scans are performed using protocols designed to limit radiation exposure to as low as reasonably achievable to attain images of sufficient resolution adequate for diagnostic evaluation.
--- NOTE | 2017-07-22 13:38 | GI Progress Note ---
Assessment/Plan Problems: (1) S/P percutaneous endoscopic gastrostomy (PEG) tube placement ICD Codes: Z93.1 - Gastrostomy status SNOMED: 131990572 (2) Failure to thrive SNOMED: 26229800 (3) Ventilator dependent ICD Codes: Z99.11 - Dependence on respirator [ventilator] status SNOMED: 955650499 (4) NSTEMI (non-ST elevated myocardial infarction) ICD Codes: I21.4 - Non-ST elevation (NSTEMI) myocardial infarction SNOMED: 268246901 (5) Severe sepsis ICD Codes: A41.9 - Sepsis, unspecified organism; R65.20 - Severe sepsis without septic shock SNOMED: 49182594 (6) Elevated troponin ICD Codes: R74.8 - Abnormal levels of other serum enzymes SNOMED: 725131968, 528110401 (7) Anemia ICD Codes: D64.9 - Anemia, unspecified SNOMED: 767778295 (8) Weakness ICD Codes: R53.1 - Weakness SNOMED: 90206133 (9) Transaminitis ICD Codes: R74.0 - Nonspecific elevation of levels of transaminase and lactic acid dehydrogenase [LDH] SNOMED: 424667169 (10) Protein-calorie malnutrition, severe ICD Codes: E43 - Unspecified severe protein-calorie malnutrition SNOMED: 028491862 (11) Dehydration ICD Codes: E86.0 - Dehydration SNOMED: 85878741 (12) Septic shock ICD Codes: A41.9 - Sepsis, unspecified organism; R65.21 - Severe sepsis with septic shock SNOMED: 44053402 Status: not improved, unchanged Status Narrative Discussed with Dr. Sierra. Assessment/Plan Assessment - respiratory failure - dysphagia, s/p prior GJ tube >> now changed to GT - UGIB - no plans for EGD at this time due to CO - NSTEMI - AMS - Anemia - OB stool positive pt extubated, now on facial Recommendations EGD to be scheduled pending cardiac clearance, will consider replacement of GJ tube if necessary. - patient is also on Eliquis which must dc 48-72 hours min prior any GI procedures Gastric Lavage 500 cc r/o UGIB >> POSITIVE, will require EGD when stable. hold GTFs until hemodynamically stable >> cont IVFs monitor H&H closely, stable last few days cardiology f/u PPI gtt fu labs Subjective Subjective limited Objective Last 24 Hour Vital Signs Date Time Temp Pulse Resp B/P (MAP) Pulse Ox O2 Delivery O2 Flow Rate FiO2 07/22/17 12:53 81 33 92 Facial 70 07/22/17 12:00 98.1 84 28 131/81 97 Bi-pap 60 07/22/17 11:00 70 28 120/54 95 Bi-pap 50 07/22/17 10:30 81 33 92 Facial 50 07/22/17 10:00 70 23 112/63 95 Bi-pap 50 07/22/17 09:24 50 07/22/17 09:00 81 112/63 07/22/17 09:00 50.0 07/22/17 09:00 71 23 109/65 94 Bi-pap 50 07/22/17 08:30 117 36 82 Facial 100 07/22/17 08:30 100.0 07/22/17 08:00 110 07/22/17 08:00 97.9 102 26 130/86 90 Nasal Cannula 4.0 07/22/17 07:20 80 27 94 Nasal Cannula 4.0 36 07/22/17 07:19 79 30 Nasal Cannula 4.0 36 07/22/17 07:09 40 07/22/17 07:09 81 27 94 Nasal Cannula 4.0 36 07/22/17 07:08 36 07/22/17 07:08 76 32 95 Nasal Cannula 4.0 36 07/22/17 07:00 79 21 108/48 95 Nasal Cannula 4.0 07/22/17 06:00 72 23 111/53 100 Nasal Cannula 4.0 07/22/17 05:17 75 21 100 Facial 60 07/22/17 05:00 70 23 109/56 100 Bi-pap 60 07/22/17 04:00 66 07/22/17 04:00 97.6 68 25 110/42 100 Bi-pap 60 07/22/17 03:32 71 22 100 Full Face 60 07/22/17 03:00 80 23 108/47 100 Bi-pap 60 07/22/17 02:00 71 23 108/54 100 Bi-pap 60 07/22/17 01:55 82 34 Bi-pap 60 07/22/17 01:38 71 26 100 Full Face 60 07/22/17 01:37 60 07/22/17 01:37 72 26 60 Bi-pap 100 07/22/17 01:00 70 24 104/48 100 Bi-pap 60 07/22/17 00:00 64 07/22/17 00:00 97.8 64 22 108/49 100 Bi-pap 60 07/21/17 23:16 62 20 100 Full Face 60 07/21/17 23:00 63 21 106/44 100 Bi-pap 60 07/21/17 22:15 104/47 07/21/17 22:00 61 22 104/47 100 Bi-pap 60 07/21/17 21:02 82 119/84 07/21/17 21:00 71 24 112/56 98 Bi-pap 60 07/21/17 20:35 60 07/21/17 20:34 89 34 Bi-pap 60 07/21/17 20:34 82 26 100 Bi-pap 60 07/21/17 20:29 83 25 100 Full Face 100 07/21/17 20:22 88 34 100 Bi-pap 100 07/21/17 20:21 40 07/21/17 20:21 88 26 100 Bi-pap 40 07/21/17 20:20 89 34 Bi-pap 100 07/21/17 20:19 88 23 100 Bi-pap 100 07/21/17 20:00 97.9 89 24 119/51 99 Bi-pap 100 07/21/17 20:00 89 07/21/17 19:00 108 26 153/84 94 Bi-pap 100 07/21/17 18:00 114 16 142/97 80 Nasal Cannula 4.0 07/21/17 17:00 75 16 136/57 99 Nasal Cannula 2.0 07/21/17 16:00 98.4 79 20 135/58 98 Nasal Cannula 2.0 07/21/17 16:00 73 07/21/17 15:00 82 25 141/60 94 Nasal Cannula 2.0 07/21/17 14:00 80 25 128/50 95 Nasal Cannula 2.0 Intake and Output 07/21/17 07/22/17 19:00 07:00 Intake Total 901 ml 781.967 ml Output Total 1420 ml 350 ml Balance -519 ml 431.967 ml IV Total 631 ml 731.967 ml Tube Feeding 270 ml 50 ml Output Urine Total 1420 ml 350 ml # Bowel Movements 2 Laboratory Tests Test 07/21/17 18:14 07/21/17 21:15 07/22/17 03:50 07/22/17 11:47 Arterial Blood pH 7.262 (7.350-7.450) 7.380 (7.350-7.450) Arterial Blood Partial Pressure CO2 54.4 mmHg (35.0-45.0) H 41.6 mmHg (35.0-45.0) Arterial Blood Partial Pressure O2 53.7 mmHg (75.0-100.0) L 57.4 mmHg (75.0-100.0) L Arterial Blood HCO3 24.0 mmol/L (22.0-26.0) 24.4 mmol/L (22.0-26.0) Arterial Blood Oxygen Saturation 81.3 % (92.0-98.0) L 89.2 % (92.0-98.0) L Arterial Blood Base Excess -3.4 -0.5 Jamie Test Positive Positive Vancomycin Level Trough 8.1 ug/mL (5.0-12.0) White Blood Count 6.7 K/UL (4.8-10.8) Red Blood Count 3.00 M/UL (4.20-5.40) L Hemoglobin 8.0 G/DL (12.0-16.0) L Hematocrit 26.5 % (37.0-47.0) L Mean Corpuscular Volume 88 FL (80-99) Mean Corpuscular Hemoglobin 26.6 PG (27.0-31.0) L Mean Corpuscular Hemoglobin Concent 30.2 G/DL (32.0-36.0) L Red Cell Distribution Width 19.9 % (11.6-14.8) H Platelet Count 201 K/UL (150-450) Mean Platelet Volume 8.2 FL (6.5-10.1) Neutrophils (%) (Auto) 78.2 % (45.0-75.0) H Lymphocytes (%) (Auto) 15.2 % (20.0-45.0) L Monocytes (%) (Auto) 5.4 % (1.0-10.0) Eosinophils (%) (Auto) 0.1 % (0.0-3.0) Basophils (%) (Auto) 1.2 % (0.0-2.0) Activated Partial Thromboplast Time 54 SEC (23-33) H Sodium Level 141 MMOL/L (136-145) Potassium Level 3.7 MMOL/L (3.5-5.1) Chloride Level 109 MMOL/L (98-107) H Carbon Dioxide Level 26 MMOL/L (21-32) Anion Gap 6 mmol/L (5-15) Blood Urea Nitrogen 7 mg/dL (7-18) Creatinine 0.5 MG/DL (0.55-1.30) L Estimat Glomerular Filtration Rate mL/min (>60) Glucose Level 105 MG/DL (74-106) Calcium Level 7.6 MG/DL (8.5-10.1) L Magnesium Level 1.6 MG/DL (1.8-2.4) L Total Bilirubin 0.2 MG/DL (0.2-1.0) Aspartate Amino Transf (AST/SGOT) 23 U/L (15-37) Alanine Aminotransferase (ALT/SGPT) 14 U/L (12-78) Alkaline Phosphatase 44 U/L (46-116) L Total Protein 5.0 G/DL (6.4-8.2) L Albumin 1.4 G/DL (3.4-5.0) L Globulin 3.6 g/dL Albumin/Globulin Ratio 0.4 (1.0-2.7) L HIV (1&2) Antibody Rapid Negative (NEGATIVE) Test 07/22/17 12:00 Activated Partial Thromboplast Time 100 SEC (23-33) H Height (Feet): 5 Height (Inches): 2.00 Weight (Pounds): 118 General Appearance: no apparent distress Cardiovascular: normal rate Respiratory/Chest: accessory muscle use, other - facial Abdominal Exam: GT site - c/d/i [place] Colon N.PChelsea Jul 22, 2017 13:38
--- NOTE | 2017-07-22 16:31 | Diagnostic Imaging Report ---
Indication: Reason For Exam: COUGH Technique: One view of the chest Comparison: 07/21/2017 Findings: Bilateral interstitial and airspace consolidation is again demonstrated, appearing unchanged on the right and worse on the left, with denser perihilar consolidation now present on the left. There appears to be increasing left-sided pleural fluid as well. The previously demonstrated right-sided pleural effusion appears decreased. Old healed rib fracture deformities are again demonstrated on the left. Epigastric surgical clips are again noted. Impression: Worsening left-sided pleural effusion and parenchymal consolidation. Unchanged right-sided parenchymal consolidation Apparent decrease in right-sided pleural fluid, over one day Other stable findings as described
[2017-07-22] MEDS: cefTRIAXone 1 GM in D5W 50 ML IVPB SCH (16:48)
--- NOTE | 2017-07-22 17:30 | General Progress Note ---
Assessment/Plan Problem List: (1) Pneumonia ICD Codes: J18.9 - Pneumonia, unspecified organism SNOMED: 175480872, 326003267 Qualifiers: Qualified Codes: J18.1 - Lobar pneumonia, unspecified organism (2) Elevated troponin ICD Codes: R74.8 - Abnormal levels of other serum enzymes SNOMED: 315632658, 079142630 (3) Anemia ICD Codes: D64.9 - Anemia, unspecified SNOMED: 189035246 (4) CAD s/p PCI (5) Alzheimer's dementia ICD Codes: G30.9 - Alzheimer's disease, unspecified SNOMED: 67669295 (6) paroxsymal atrial fibrillation (7) Lactic acid acidosis ICD Codes: E87.2 - Acidosis SNOMED: 12612206 (8) Acute respiratory failure with hypoxia and hypercapnia ICD Codes: J96.01 - Acute respiratory failure with hypoxia; J96.02 - Acute respiratory failure with hypercapnia SNOMED: 09016665, 49265168, 827901190 (9) HCAP vs Aspiration pneumonia (10) UTI (urinary tract infection) ICD Codes: N39.0 - Urinary tract infection, site not specified SNOMED: 82021422 (11) Acute on chronic anemia (12) Failure to thrive SNOMED: 47507123 (13) NSTEMI (non-ST elevated myocardial infarction) ICD Codes: I21.4 - Non-ST elevation (NSTEMI) myocardial infarction SNOMED: 508758896 Status: not improved Assessment/Plan Continue in ICU Neurology consulted given new onset slurred speech. CT head negative Pulm, cardiology, ID, GI consulted, appreciate rec's s/p extubation on 07/21/17 Cont empiric vanco, zosyn, azithro per ID (07/16-), s/p amikacin F/u cultures Trend CBC, BMP, lactate Trend trop/EKG --> trop downtrending F/u TTE --> 45% EF with mild LVDD Cont heparin gtt per cardiology (Eliquis on hold) s/p 1 unit pRBC transfusion 07/17. Gastric lavage on 07/17 showed e/o bleeding but currently no active signs of bleeding Patient will eventually need EGD/colonoscopy to assess for GIB given acute drop in hemoglobin and positive FOBT. However, patient is unstable at the moment given NSTEMI/elevated trops. Awaiting cardiac clearance Continue PPI gtt Continue IV venofer Cont G-tube feedings per GI Supportive care DVT Prophylaxis: SCD, heparin gtt Code Status: Full per discussion w/ pt's DPOA/daughter Hospital Classification Declaration: Based on this initial evaluation, and depending on the patient's clinical course, I anticipate that this patient will require hospitalization for 2-3 days for acute respiratory faiure, severe sepsis and close respiratory/hemodynamic monitoring. Disposition: Once the patient is stable to leave the hospital, I anticipate the patient will likely be discharged to the following environment: back to SNF At the time of my involvement, the patient's condition was critical with high potential for and/or physiologic deterioration secondary to acute respiratory failure, severe sepsis as delineated in the note above. On the above date of service, I spent a total of 37 minutes in the ICU evaluating, managing, and providing critical care services to this patient, including time spent documenting these activities, counseling patient/family, and coordinating care. Critical care services performed include: Telemetry Review Hemodynamic measurement interpretation Laboratory data review and interpretation Ventilator setting review, management, and adjustment Discussion of care plans with patient, family, and/or surrogate decision makers Discussion of patient's care with primary medical team, surgical team, and/or consulting service Decision to obtain further radiologic evaluation, after consideration of risk/ benefit ratio Review of most recent microbiology results with assessment and modification of antimicrobial coverage Discussion of patient's code status and further advancement towards the ultimate goals of care Plan outlined above discussed with patient/family, [employer], ICU team, and involved physicians/consultants. Time of note may not reflect time of encounter. Subjective Date patient seen: Jul 22, 2017 Allergies: Coded Allergies: No Known Allergies (Unverified , 05/25/13) Subjective - new onset of slurred speech today - CT head unremarkable for bleed or infarct - continues to be on Bipap, sedated - neurology consulted Objective Last 24 Hour Vital Signs Date Time Temp Pulse Resp B/P (MAP) Pulse Ox O2 Delivery O2 Flow Rate FiO2 07/22/17 17:00 79 25 107/47 98 Bi-pap 50 07/22/17 16:58 76 28 97 Facial 50 07/22/17 16:00 78 07/22/17 16:00 70.0 07/22/17 16:00 97.9 80 26 122/52 96 Bi-pap 70 07/22/17 15:00 76 27 113/52 99 Bi-pap 70 07/22/17 14:45 76 28 99 Facial 70 07/22/17 14:03 81 33 100 Bi-pap 70 07/22/17 14:03 81 33 100 Bi-pap 70 07/22/17 14:00 79 30 108/47 99 Bi-pap 70 07/22/17 13:52 74 30 96 Bi-pap 70 07/22/17 13:52 40 07/22/17 13:36 73 31 97 Bi-pap 70 07/22/17 13:36 36 07/22/17 13:00 80 24 134/58 97 Bi-pap 70 07/22/17 12:53 81 33 92 Facial 70 07/22/17 12:00 80 07/22/17 12:00 98.1 84 28 131/81 97 Bi-pap 60 07/22/17 11:00 70 28 120/54 95 Bi-pap 50 07/22/17 10:30 81 33 92 Facial 50 07/22/17 10:00 70 23 112/63 95 Bi-pap 50 07/22/17 09:24 50 07/22/17 09:00 81 112/63 07/22/17 09:00 50.0 07/22/17 09:00 71 23 109/65 94 Bi-pap 50 07/22/17 08:30 117 36 82 Facial 100 07/22/17 08:30 100.0 07/22/17 08:00 110 07/22/17 08:00 97.9 102 26 130/86 90 Nasal Cannula 4.0 07/22/17 07:20 80 27 94 Nasal Cannula 4.0 36 07/22/17 07:19 79 30 Nasal Cannula 4.0 36 07/22/17 07:09 40 07/22/17 07:09 81 27 94 Nasal Cannula 4.0 36 07/22/17 07:08 36 07/22/17 07:08 76 32 95 Nasal Cannula 4.0 36 07/22/17 07:00 79 21 108/48 95 Nasal Cannula 4.0 07/22/17 06:00 72 23 111/53 100 Nasal Cannula 4.0 07/22/17 05:17 75 21 100 Facial 60 07/22/17 05:00 70 23 109/56 100 Bi-pap 60 07/22/17 04:00 66 07/22/17 04:00 97.6 68 25 110/42 100 Bi-pap 60 07/22/17 03:32 71 22 100 Full Face 60 07/22/17 03:00 80 23 108/47 100 Bi-pap 60 07/22/17 02:00 71 23 108/54 100 Bi-pap 60 07/22/17 01:55 82 34 Bi-pap 60 07/22/17 01:38 71 26 100 Full Face 60 07/22/17 01:37 60 07/22/17 01:37 72 26 60 Bi-pap 100 07/22/17 01:00 70 24 104/48 100 Bi-pap 60 07/22/17 00:00 64 07/22/17 00:00 97.8 64 22 108/49 100 Bi-pap 60 07/21/17 23:16 62 20 100 Full Face 60 07/21/17 23:00 63 21 106/44 100 Bi-pap 60 07/21/17 22:15 104/47 07/21/17 22:00 61 22 104/47 100 Bi-pap 60 07/21/17 21:02 82 119/84 07/21/17 21:00 71 24 112/56 98 Bi-pap 60 07/21/17 20:35 60 07/21/17 20:34 89 34 Bi-pap 60 07/21/17 20:34 82 26 100 Bi-pap 60 07/21/17 20:29 83 25 100 Full Face 100 07/21/17 20:22 88 34 100 Bi-pap 100 07/21/17 20:21 40 07/21/17 20:21 88 26 100 Bi-pap 40 07/21/17 20:20 89 34 Bi-pap 100 07/21/17 20:19 88 23 100 Bi-pap 100 07/21/17 20:00 97.9 89 24 119/51 99 Bi-pap 100 07/21/17 20:00 89 07/21/17 19:00 108 26 153/84 94 Bi-pap 100 07/21/17 18:00 114 16 142/97 80 Nasal Cannula 4.0 Intake and Output 07/21/17 07/22/17 19:00 07:00 Intake Total 901 ml 781.967 ml Output Total 1420 ml 350 ml Balance -519 ml 431.967 ml IV Total 631 ml 731.967 ml Tube Feeding 270 ml 50 ml Output Urine Total 1420 ml 350 ml # Bowel Movements 2 Laboratory Tests 07/21/17 18:14: Arterial Blood pH 7.262L, Arterial Blood Partial Pressure CO2 54.4H, Arterial Blood Partial Pressure O2 53.7L, Arterial Blood HCO3 24.0, Arterial Blood Oxygen Saturation 81.3L, Arterial Blood Base Excess -3.4, Jamie Test Positive 07/21/17 21:15: Vancomycin Level Trough 8.1 07/22/17 03:50: White Blood Count 6.7, Red Blood Count 3.00L, Hemoglobin 8.0L, Hematocrit 26.5L , Mean Corpuscular Volume 88, Mean Corpuscular Hemoglobin 26.6L, Mean Corpuscular Hemoglobin Concent 30.2L, Red Cell Distribution Width 19.9H, Platelet Count 201, Mean Platelet Volume 8.2, Neutrophils (%) (Auto) 78.2H, Lymphocytes (%) (Auto) 15.2L, Monocytes (%) (Auto) 5.4, Eosinophils (%) (Auto) 0.1, Basophils (%) (Auto) 1.2, Activated Partial Thromboplast Time 54H, Sodium Level 141, Potassium Level 3.7, Chloride Level 109H, Carbon Dioxide Level 26, Anion Gap 6, Blood Urea Nitrogen 7, Creatinine 0.5L, Estimat Glomerular Filtration Rate , Glucose Level 105, Calcium Level 7.6L, Magnesium Level 1.6L, Total Bilirubin 0.2, Aspartate Amino Transf (AST/SGOT) 23, Alanine Aminotransferase (ALT/SGPT) 14, Alkaline Phosphatase 44L, Total Protein 5.0L, Albumin 1.4L, Globulin 3.6, Albumin/Globulin Ratio 0.4L, HIV (1&2) Antibody Rapid Negative 07/22/17 11:47: Arterial Blood pH 7.380, Arterial Blood Partial Pressure CO2 41.6, Arterial Blood Partial Pressure O2 57.4L, Arterial Blood HCO3 24.4, Arterial Blood Oxygen Saturation 89.2L, Arterial Blood Base Excess -0.5, Jamie Test Positive 07/22/17 12:00: Activated Partial Thromboplast Time 100H Height (Feet): 5 Height (Inches): 2.00 Weight (Pounds): 118 General Appearance: other - sedated on Bipap Neck: non-tender, normal alignment, supple Cardiovascular: regularly irregular Respiratory/Chest: respiratory distress, crackles/rales Abdomen: normal bowel sounds, non tender, soft, other - peg Neurologic: other - sedated Skin: normal pigmentation, warm/dry Yesenia Erazo N.P. Jul 22, 2017 17:30
--- NOTE | 2017-07-22 17:55 | Consultation ---
Consult Note Consult Note NEUROLOGY CONSULTATION: Full note dictated #[id number] y/o, CF of ?H who does have a PH of HTN, CAD, PAF on Eliquis, AD, CVD, right sided brain surgery who lives in a NH. She was hospitalized on 07/16/17 for SOB associated with hypoxia and elevated troponin. She was extubated yesterday and today was noted to be slurring her speech and was also noted to be more somnolent. ON EXAM: Right TP skull defect. Lethargic. Oriented to self only. Significantly dysarthric Unable to cooperate for language testing. Generally weak. Globally diminished DTRs with extensor plantars. CT of brain with atrophy, DWM changes, right TP craniotomy defect, but no acute path. LABS: Severe anemia, elevated BNP and troponin, elevated WBCs and signs of UTI. IMPRESSION: Toxic/Metabolic encephalopathy superimposed on old structural brain disease. REC: Correct all toxic/metabolic disturbances. Correct anemia to HB>10 EEG Observe Daniel Fuller M.D., M.S.P.H. DANIEL FULLER Jul 22, 2017 17:55
--- NOTE | 2017-07-22 18:47 | Infectious Diseases Prog Note ---
Assessment/Plan Assessment/Plan ASSESSMENT AND PLAN: 1. e.coli uti, mrsa uti, klebsiella/e.coli/strep g-tube infection, sepsis, legionella negative, respiratory failure/vent - respiratory status worse in d/w RN and chest x-ray worse - change abx to vancomycin and meropenem - leukocytosis and fevers better - check labs and chest x-ray, recheck sc - icu and supportive care, plan to extubate 2. The patient has severe anemia. 3. Respiratory failure, on ventilator. 4. Dysphagia, on gastrostomy tube. 5. Skin care protocol. Wounds were reviewed. They do not look acutely infected. 6. Hypertension. 7. Cardiomyopathy. 8. CVA. 9. Coronary artery disease. 10. Percutaneous coronary intervention of the left anterior descending. 11. Atrial fibrillation. 12. Alzheimer's. 13. Dementia. 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 15. Blood pressure treatment for hypertension per primary. 16. Allergies are negative. 17. Family number is noncontributory. 18. Social history is negative. 19. MAR was noted. 20. Case was discussed with RN. 21. Continue treatment per primary consultants. 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, vre colonization and isolation Subjective Constitutional: Reports: fatigue, other - extubated, on bipap, Denies: fever HEENT: Reports: congestion Respiratory: Reports: shortness of breath Cardiovascular: Denies: chest pain Gastrointestinal/Abdominal: Denies: nausea, vomiting, diarrhea Genitourinary: Reports: other - + blake Neurologic: Denies: headache Psychiatric: Denies: depression Skin: Denies: rash Hematologic: Denies: bleeding Musculoskeletal: Denies: pain Allergies: Coded Allergies: No Known Allergies (Unverified , 05/25/13) Objective Vital Signs Last 24 Hour Vital Signs Date Time Temp Pulse Resp B/P (MAP) Pulse Ox O2 Delivery O2 Flow Rate FiO2 07/22/17 18:00 87 26 128/58 96 Bi-pap 50 07/22/17 17:00 50.0 07/22/17 17:00 79 25 107/47 98 Bi-pap 50 07/22/17 16:58 76 28 97 Facial 50 07/22/17 16:00 78 07/22/17 16:00 70.0 07/22/17 16:00 97.9 80 26 122/52 96 Bi-pap 70 07/22/17 15:00 76 27 113/52 99 Bi-pap 70 07/22/17 14:45 76 28 99 Facial 70 07/22/17 14:03 81 33 100 Bi-pap 70 07/22/17 14:03 81 33 100 Bi-pap 70 07/22/17 14:00 79 30 108/47 99 Bi-pap 70 07/22/17 13:52 74 30 96 Bi-pap 70 07/22/17 13:52 40 07/22/17 13:36 73 31 97 Bi-pap 70 07/22/17 13:36 36 07/22/17 13:00 80 24 134/58 97 Bi-pap 70 07/22/17 12:53 81 33 92 Facial 70 07/22/17 12:00 80 07/22/17 12:00 98.1 84 28 131/81 97 Bi-pap 60 07/22/17 11:00 70 28 120/54 95 Bi-pap 50 07/22/17 10:30 81 33 92 Facial 50 07/22/17 10:00 70 23 112/63 95 Bi-pap 50 07/22/17 09:24 50 07/22/17 09:00 81 112/63 07/22/17 09:00 50.0 07/22/17 09:00 71 23 109/65 94 Bi-pap 50 07/22/17 08:30 117 36 82 Facial 100 07/22/17 08:30 100.0 07/22/17 08:00 110 07/22/17 08:00 97.9 102 26 130/86 90 Nasal Cannula 4.0 07/22/17 07:20 80 27 94 Nasal Cannula 4.0 36 07/22/17 07:19 79 30 Nasal Cannula 4.0 36 07/22/17 07:09 40 07/22/17 07:09 81 27 94 Nasal Cannula 4.0 36 07/22/17 07:08 36 07/22/17 07:08 76 32 95 Nasal Cannula 4.0 36 07/22/17 07:00 79 21 108/48 95 Nasal Cannula 4.0 07/22/17 06:00 72 23 111/53 100 Nasal Cannula 4.0 07/22/17 05:17 75 21 100 Facial 60 07/22/17 05:00 70 23 109/56 100 Bi-pap 60 07/22/17 04:00 66 07/22/17 04:00 97.6 68 25 110/42 100 Bi-pap 60 07/22/17 03:32 71 22 100 Full Face 60 07/22/17 03:00 80 23 108/47 100 Bi-pap 60 07/22/17 02:00 71 23 108/54 100 Bi-pap 60 07/22/17 01:55 82 34 Bi-pap 60 07/22/17 01:38 71 26 100 Full Face 60 07/22/17 01:37 60 07/22/17 01:37 72 26 60 Bi-pap 100 07/22/17 01:00 70 24 104/48 100 Bi-pap 60 07/22/17 00:00 64 07/22/17 00:00 97.8 64 22 108/49 100 Bi-pap 60 07/21/17 23:16 62 20 100 Full Face 60 07/21/17 23:00 63 21 106/44 100 Bi-pap 60 07/21/17 22:15 104/47 07/21/17 22:00 61 22 104/47 100 Bi-pap 60 07/21/17 21:02 82 119/84 07/21/17 21:00 71 24 112/56 98 Bi-pap 60 07/21/17 20:35 60 07/21/17 20:34 89 34 Bi-pap 60 07/21/17 20:34 82 26 100 Bi-pap 60 07/21/17 20:29 83 25 100 Full Face 100 07/21/17 20:22 88 34 100 Bi-pap 100 07/21/17 20:21 40 07/21/17 20:21 88 26 100 Bi-pap 40 07/21/17 20:20 89 34 Bi-pap 100 07/21/17 20:19 88 23 100 Bi-pap 100 07/21/17 20:00 97.9 89 24 119/51 99 Bi-pap 100 07/21/17 20:00 89 07/21/17 19:00 108 26 153/84 94 Bi-pap 100 Height (Feet): 5 Height (Inches): 2.00 Weight (Pounds): 118 General Appearance: other - no blake HEENT: normocephalic, anicteric, PERRL Respiratory/Chest: no respiratory distress, crackles/rales, rhonchi - bilaterally Cardiovascular: normal rate, regular rhythm, no gallop/murmur, no JVD Abdomen: normal bowel sounds, soft, non tender, no organomegaly, non distended Genitourinary: other - + blake - urine Extremities: no cyanosis Skin: no rash 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 Findings: Mild interstitial edema suspected. Heart size is stable. Endotracheal tube is stable. IMPRESSION: CHF. No change previous imaging noted 07/22 - chest x-ray - Impression: Worsening left-sided pleural effusion and parenchymal consolidation. Unchanged right-sided parenchymal consolidation Apparent decrease in right-sided pleural fluid, over one day Microbiology Date/Time Source Procedure Growth Status 07/16/17 19:00 Blood Blood Culture - Final NO GROWTH AFTER 5 DAYS Complete 07/17/17 01:20 Wound Gram Stain - Final Complete 07/17/17 01:20 Wound Culture - Final Klebsiella Pneumoniae Escherichia Coli Enterococcus Faecalis Complete 07/17/17 11:00 Sputum Gram Stain - Final Complete 07/17/17 11:00 Sputum Sputum Culture - Final NORMAL UPPER RESPIRATORY EMELYN PRESENT Complete 07/17/17 08:00 Stool Clostridium difficile Toxin Assay - Final Complete 07/16/17 19:28 Urine,Clean Catch Urine Culture - Final Escherichia Coli Staphylococcus Aureus - Mrsa Complete 07/16/17 19:30 Rectum VRE Culture - Final Enterococcus Faecalis - Vre Complete Laboratory Tests Test 07/21/17 21:15 07/22/17 03:50 07/22/17 11:47 07/22/17 12:00 Vancomycin Level Trough 8.1 ug/mL (5.0-12.0) White Blood Count 6.7 K/UL (4.8-10.8) Red Blood Count 3.00 M/UL (4.20-5.40) L Hemoglobin 8.0 G/DL (12.0-16.0) L Hematocrit 26.5 % (37.0-47.0) L Mean Corpuscular Volume 88 FL (80-99) Mean Corpuscular Hemoglobin 26.6 PG (27.0-31.0) L Mean Corpuscular Hemoglobin Concent 30.2 G/DL (32.0-36.0) L Red Cell Distribution Width 19.9 % (11.6-14.8) H Platelet Count 201 K/UL (150-450) Mean Platelet Volume 8.2 FL (6.5-10.1) Neutrophils (%) (Auto) 78.2 % (45.0-75.0) H Lymphocytes (%) (Auto) 15.2 % (20.0-45.0) L Monocytes (%) (Auto) 5.4 % (1.0-10.0) Eosinophils (%) (Auto) 0.1 % (0.0-3.0) Basophils (%) (Auto) 1.2 % (0.0-2.0) Activated Partial Thromboplast Time 54 SEC (23-33) H 100 SEC (23-33) H Sodium Level 141 MMOL/L (136-145) Potassium Level 3.7 MMOL/L (3.5-5.1) Chloride Level 109 MMOL/L (98-107) H Carbon Dioxide Level 26 MMOL/L (21-32) Anion Gap 6 mmol/L (5-15) Blood Urea Nitrogen 7 mg/dL (7-18) Creatinine 0.5 MG/DL (0.55-1.30) L Estimat Glomerular Filtration Rate mL/min (>60) Glucose Level 105 MG/DL (74-106) Calcium Level 7.6 MG/DL (8.5-10.1) L Magnesium Level 1.6 MG/DL (1.8-2.4) L Total Bilirubin 0.2 MG/DL (0.2-1.0) Aspartate Amino Transf (AST/SGOT) 23 U/L (15-37) Alanine Aminotransferase (ALT/SGPT) 14 U/L (12-78) Alkaline Phosphatase 44 U/L (46-116) L Total Protein 5.0 G/DL (6.4-8.2) L Albumin 1.4 G/DL (3.4-5.0) L Globulin 3.6 g/dL Albumin/Globulin Ratio 0.4 (1.0-2.7) L HIV (1&2) Antibody Rapid Negative (NEGATIVE) Arterial Blood pH 7.380 (7.350-7.450) Arterial Blood Partial Pressure CO2 41.6 mmHg (35.0-45.0) Arterial Blood Partial Pressure O2 57.4 mmHg (75.0-100.0) L Arterial Blood HCO3 24.4 mmol/L (22.0-26.0) Arterial Blood Oxygen Saturation 89.2 % (92.0-98.0) L Arterial Blood Base Excess -0.5 Jamie Test Positive Current Medications Medications (Trade) Dose Ordered Sig/Analia Route PRN Reason Start Time Stop Time Status Last Admin Dose Admin Acetaminophen (Tylenol) 650 mg Q4H PRN ORAL fever 07/16/17 22:15 08/15/17 22:14 07/17/17 08:06 Albuterol/ Ipratropium (Albuterol/ Ipratropium) 3 ml EVERY 4 HOURS PRN HHN Shortness of Breath 07/19/17 12:00 07/24/17 11:59 Aspirin (ASA) 81 mg DAILY NG 07/19/17 09:00 08/18/17 08:59 07/22/17 09:00 Atorvastatin Calcium (Lipitor) 10 mg BEDTIME ORAL 07/17/17 21:00 08/16/17 20:59 07/21/17 21:02 Ceftriaxone Sodium 1 gm/ Dextrose 50 ml @ 100 mls/hr Q24H IVPB 07/20/17 16:00 07/27/17 15:59 07/22/17 16:48 Chlorhexidine Gluconate (Joana-Hex 2%) 1 applic DAILY@2000 TOPIC 07/18/17 20:00 08/17/17 19:59 07/21/17 21:01 Heparin Sodium/ Dextrose 500 ml @ 14.987 mls/ hr adjust per protocol IV 07/22/17 13:00 08/21/17 12:59 07/22/17 13:47 Ipratropium [place] (Atrovent) 500 mcg Q6HRT N 07/21/17 19:00 07/26/17 18:59 07/22/17 13:35 Iron Sucrose 100 mg/Sodium Chloride 60 ml @ 240 mls/hr BEDTIME IV 07/18/17 21:00 07/22/17 21:14 07/21/17 21:02 Levalbuterol HCl (Xopenex) 0.63 mg Q6HRT HHN 07/22/17 13:00 07/27/17 12:59 07/22/17 13:51 Lorazepam (Ativan 2mg/ml 1ml) 2 mg EVERY 2 HOURS PRN IV For Anxiety 07/16/17 22:15 07/23/17 22:14 07/22/17 12:42 Metoprolol Tartrate (Lopressor) 12.5 mg Q12HR ORAL 07/17/17 21:00 08/16/17 20:59 07/22/17 09:00 Metronidazole 100 ml @ 100 mls/hr Q8HR IVPB 07/20/17 22:00 07/27/17 21:59 07/22/17 13:41 Morphine Sulfate (Morphine Sulfate) 2 mg Q4H PRN IVP PAIN 4-10 07/21/17 14:45 07/28/17 14:44 07/21/17 15:01 Norepinephrine Bitartrate 4 mg/ Dextrose 254 ml @ 0 mls/hr Q24H IV 07/16/17 22:15 08/15/17 22:14 Ondansetron HCl (Zofran) 4 mg Q6H PRN IVP Nausea & Vomiting 07/16/17 22:15 08/15/17 22:14 Pantoprazole 80 mg/Sodium Chloride 250 ml @ 25 mls/hr Q10H IV 07/21/17 16:00 08/20/17 15:59 07/22/17 12:42 Polyethylene Glycol (Miralax) 17 gm DAILYPRN PRN ORAL Constipation 07/16/17 22:15 08/15/17 22:14 Vancomycin HCl (Vanco rx to dose) 1 ea DAILY PRN MISC per protocol 07/17/17 00:45 08/16/17 00:44 Vancomycin HCl/ Dextrose 250 ml @ 166.667 mls/hr Q24H IVPB 07/22/17 09:00 07/27/17 08:59 07/22/17 09:00 MIHAELA TUBBS Jul 22, 2017 18:47
[2017-07-22] MEDS: Dyna-Hex 2% Top Sol 2oz TOPIC SCH (19:46)
[2017-07-22] MEDS: Meropenem 500mg in NS 55ml IVPB SCH (20:30)
[2017-07-22] MEDS: Iron Sucrose 100 MG in NS 55 ML IV SCH (20:59)
--- NOTE | 2017-07-22 22:15 | Consultation ---
DATE OF CONSULTATION: 07/22/2017 NEUROLOGY CONSULTATION CONSULTING PHYSICIAN: Ga Fuller M.D. REQUESTING PHYSICIAN: Kilo López M.D. HISTORY: Ms. Beatriz Loving is an 87-year-old, lady, of unknown handedness, who does have a past history of hypertension, coronary artery disease, and paroxysmal atrial fibrillation for which she was on Eliquis and is now on heparin, Alzheimer disease, cerebrovascular disease, and right-sided brain surgery for the reasons unknown to us, who lives in a long-term. She was functioning relatively well at the long-term until 07/16/2017 when she was noted to be short of breath, was hypoxic, and looked quite ill. As a result of that, she was brought into the [facility] emergency room. On being evaluated in the emergency room, she was significantly short of breath, hypoxic, had an elevated troponin, and was possibly septic. She was investigated for her infectious process and she was found to have a significant urinary tract infection and possibly a pneumonic process. As a result of that, she was intubated, artificially ventilated, started on antibiotics, and stabilized in the intensive care unit. She was extubated on 07/21/2017 and following that, was bright for a brief period of time and then, she again was noted to be more somnolent, slurring her speech, and not her normal self. As a result of that, a CT scan of the brain was performed earlier today. The CT scan revealed significant atrophy, deep white matter changes, and encephalomalacia involving the right brain with right temporoparietal skull defect. At this point in time, the patient is on BiPAP and still quite altered with regards to her mental state and thus this consultation was requested. The patient herself was unable to give me any history. PAST MEDICAL HISTORY: Significant for hypertension, coronary artery disease, paroxysmal atrial fibrillation, Alzheimer disease, cerebrovascular disease, and right-sided brain surgery for reasons unknown to us. FAMILY HISTORY: Unavailable. PERSONAL HISTORY: Home: She lives in a long-term. Work: Unknown. Habits: None at this point in time. PRESENT MEDICATIONS: Include Xopenex, heparin for anticoagulation, vancomycin, Atrovent, pantoprazole, morphine p.r.n., metronidazole, ceftriaxone, albuterol, aspirin 81 mg daily, iron sucrose, Lopressor, Lipitor, vancomycin, MiraLAX, Zofran, Ativan p.r.n., and norepinephrine. PHYSICAL EXAMINATION: GENERAL: She is a well-developed, but lean and ill-looking lady, lying in an intensive care unit bed with a BiPAP machine connected to her. VITAL SIGNS: Pulse 79 per minute, blood pressure 107/47 mmHg, respirations 25 per minute, and temperature 97.9 degrees Fahrenheit. HEAD: Normocephalic with a right temporoparietal skull defect. EENT: Examination benign. NECK: No neck rigidity was observed. NEUROLOGICAL EXAMINATION: MENTAL STATUS EXAMINATION: She was lethargic, but was arousable. When aroused, she followed commands inconsistently. She was able to give a few yes and no answers, but was unable to communicate in an effective manner. SPEECH: She had significant dysarthria. LANGUAGE: Could not be tested adequately because of her altered mental state. CRANIAL NERVE EXAMINATION: II: She did blink to threat. III, IV & : The external ocular movements were present and the pupils 3 mm in diameter, equal, round, regular, and reactive to light. V & VII: The corneal reflexes were brisk, but brisker on the right than on the left. She also had mild flattening of the left nasolabial fold. VIII: She seemed to be able to hear well and had no nystagmus. IX & X: Could not be tested adequately. XI: The sternocleidomastoids and trapezii did function. XII: She did protrude the tongue minimally, but could not protrude it completely. MOTOR SYSTEM: The tone was increased in all four extremities with a mild degree of spasticity, slightly more marked on the left side compared to the right. Examination of muscle mass revealed generalized muscle wasting with bilateral ankle cord contractures. Examination of power was exceedingly difficult to perform because of varying degrees of cooperation. She, however, did move all four extremities on command. SENSORY EXAMINATION: She responded appropriately to deep pain. Other sensory modalities could not be tested. REFLEXES: Trace+ on the right and 1+ on the left at the biceps, triceps, brachioradialis, and knees and 0 at both ankles. The plantar responses were extensor bilaterally. COORDINATION, STANCE & GAIT: Could not be tested. DIAGNOSTIC IMPRESSION: 1. Ms. Beatriz Loving is an 87-year-old, lady, of unknown handedness, who does have a past history of hypertension, coronary artery disease, paroxysmal atrial fibrillation, Alzheimer disease, cerebrovascular disease, and right brain surgery for reasons unknown to us, who lives in a long-term. She was hospitalized on 07/16/2017 for shortness of breath associated with hypoxia, elevated troponin, a urinary tract infection, and possibly a pneumonic process. She was stabilized and on 07/21/2017 was extubated. Following that, she was brighter, but today she was noted to be more somnolent and slurring her speech. 2. On neurological examination, at this time, she does have a right temporoparietal skull defect, is quite lethargic, but arousable, is oriented to self only, is unable to cooperate for further mental status testing, is significantly dysarthric, is unable to cooperate for language testing, is generally weak with a spastic quadriparesis, slightly more marked on the left than on the right, and has globally diminished deep tendon reflexes that are slightly brisker on the left than the right with extensor plantar responses bilaterally. 3. The CT scan of the brain without contrast reveals atrophy, deep white matter changes, and a right temporoparietal craniotomy defect, but no acute pathology. 4. Laboratory data on admission revealed that she had a significant leukocytosis with a WBC count of 15.7. She was anemic with a hemoglobin of 9.1. She had a left-sided shift on her white blood cell count. Her arterial blood gas revealed a pCO2 of 51 and a pO2 of 116. A chemistry panel revealed a sodium down to 133, potassium elevated to 5.3, BUN elevated to 24, her glucose elevated to 278, AST elevated to 138, ProBNP was greater than 35,000, her albumin was down to 2.0, and her troponin was elevated to 10.3. Her urinalysis revealed 3+ leukocyte esterase, too numerous to count red blood cells and white blood cells, and many urinary bacteria. 5. Her latest laboratory data revealed that she is still significantly anemic with a hemoglobin of 8.0. Her white blood cell count is now normal at 6.7. Her arterial blood gas reveals a pCO2 of 41.6 and pO2 of 57.4. Her chemistry panel reveals that her sodium and potassium are now normal. Her troponin is down to 2.9. 6. 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 RECOMMENDATIONS: 1. Agree with management thus far. 2. We will continue to correct the patient's toxic metabolic imbalances. 3. Would correct the patient's anemia to a hemoglobin of greater than 10 G. 4. An EEG will be ordered to evaluate the patient for the degree and type of cerebral dysfunction and to exclude ongoing ictal or interictal phenomena. 5. The patient will be observed closely and depending on how she fares over the next day or so, further recommendations will be given. Thank you for entrusting me with the care of Ms. Loving. I shall follow her with you. Ga Fuller M.D., M.S.P.H. DR: JENNY JOB#: [id number] MTDD
--- NOTE | 2017-07-22 23:43 | Cardiology Progress Note ---
Assessment/Plan Assessment/Plan 1. [id number] myocardial infarction, echocardiogram showed LVEF of 50%, continue medical therapy. 2. Acute respiratory failure. 3. Hx of HTN 4. Sinus tachycardia likely due to sepsis. 5. Hx of CAD, s/p LAD PCI per records. Subjective Subjective Sinus tachycardia at 102. Objective Last 24 Hour Vital Signs Date Time Temp Pulse Resp B/P (MAP) Pulse Ox O2 Delivery O2 Flow Rate FiO2 07/22/17 23:23 87 36 92 Facial 50 07/22/17 22:15 124/58 07/22/17 21:04 103 118/63 07/22/17 21:00 102 35 124/50 94 Bi-pap 50 07/22/17 20:56 98 32 95 Facial 50 07/22/17 20:03 97.5 92 32 118/63 96 Bi-pap 50 07/22/17 20:00 92 07/22/17 19:25 95 28 95 Bi-pap 50 07/22/17 19:25 94 28 95 Bi-pap 50 07/22/17 19:11 50 07/22/17 19:11 50 07/22/17 19:10 90 31 93 50 07/22/17 19:10 90 31 93 Bi-pap 50 07/22/17 19:00 83 24 124/56 96 Bi-pap 50 07/22/17 18:57 90 31 93 Facial 50 07/22/17 18:00 87 26 128/58 96 Bi-pap 50 07/22/17 17:00 50.0 07/22/17 17:00 79 25 107/47 98 Bi-pap 50 07/22/17 16:58 76 28 97 Facial 50 07/22/17 16:00 78 07/22/17 16:00 70.0 07/22/17 16:00 97.9 80 26 122/52 96 Bi-pap 70 07/22/17 15:00 76 27 113/52 99 Bi-pap 70 07/22/17 14:45 76 28 99 Facial 70 07/22/17 14:03 81 33 100 Bi-pap 70 07/22/17 14:03 81 33 100 Bi-pap 70 07/22/17 14:00 79 30 108/47 99 Bi-pap 70 07/22/17 13:52 74 30 96 Bi-pap 70 07/22/17 13:52 40 07/22/17 13:36 73 31 97 Bi-pap 70 07/22/17 13:36 36 07/22/17 13:00 80 24 134/58 97 Bi-pap 70 07/22/17 12:53 81 33 92 Facial 70 07/22/17 12:00 80 07/22/17 12:00 98.1 84 28 131/81 97 Bi-pap 60 07/22/17 11:00 70 28 120/54 95 Bi-pap 50 07/22/17 10:30 81 33 92 Facial 50 07/22/17 10:00 70 23 112/63 95 Bi-pap 50 07/22/17 09:24 50 07/22/17 09:00 81 112/63 07/22/17 09:00 50.0 07/22/17 09:00 71 23 109/65 94 Bi-pap 50 07/22/17 08:30 117 36 82 Facial 100 07/22/17 08:30 100.0 07/22/17 08:00 110 07/22/17 08:00 97.9 102 26 130/86 90 Nasal Cannula 4.0 07/22/17 07:20 80 27 94 Nasal Cannula 4.0 36 07/22/17 07:19 79 30 Nasal Cannula 4.0 36 07/22/17 07:09 40 07/22/17 07:09 81 27 94 Nasal Cannula 4.0 36 07/22/17 07:08 36 07/22/17 07:08 76 32 95 Nasal Cannula 4.0 36 07/22/17 07:00 79 21 108/48 95 Nasal Cannula 4.0 07/22/17 06:00 72 23 111/53 100 Nasal Cannula 4.0 07/22/17 05:17 75 21 100 Facial 60 07/22/17 05:00 70 23 109/56 100 Bi-pap 60 07/22/17 04:00 66 07/22/17 04:00 97.6 68 25 110/42 100 Bi-pap 60 07/22/17 03:32 71 22 100 Full Face 60 07/22/17 03:00 80 23 108/47 100 Bi-pap 60 07/22/17 02:00 71 23 108/54 100 Bi-pap 60 07/22/17 01:55 82 34 Bi-pap 60 07/22/17 01:38 71 26 100 Full Face 60 07/22/17 01:37 60 07/22/17 01:37 72 26 60 Bi-pap 100 07/22/17 01:00 70 24 104/48 100 Bi-pap 60 07/22/17 00:00 64 07/22/17 00:00 97.8 64 22 108/49 100 Bi-pap 60 Intake and Output 07/21/17 07/22/17 19:00 07:00 Intake Total 901 ml 781.967 ml Output Total 1420 ml 350 ml Balance -519 ml 431.967 ml IV Total 631 ml 731.967 ml Tube Feeding 270 ml 50 ml Output Urine Total 1420 ml 350 ml # Bowel Movements 2 2D Echo: LVEF 50%, RVSP 28 mmHg, Grade I LVDD, Mild LVH Laboratory Tests Test 07/22/17 03:50 07/22/17 11:47 07/22/17 12:00 07/22/17 19:35 White Blood Count 6.7 K/UL (4.8-10.8) Red Blood Count 3.00 M/UL (4.20-5.40) L Hemoglobin 8.0 G/DL (12.0-16.0) L Hematocrit 26.5 % (37.0-47.0) L Mean Corpuscular Volume 88 FL (80-99) Mean Corpuscular Hemoglobin 26.6 PG (27.0-31.0) L Mean Corpuscular Hemoglobin Concent 30.2 G/DL (32.0-36.0) L Red Cell Distribution Width 19.9 % (11.6-14.8) H Platelet Count 201 K/UL (150-450) Mean Platelet Volume 8.2 FL (6.5-10.1) Neutrophils (%) (Auto) 78.2 % (45.0-75.0) H Lymphocytes (%) (Auto) 15.2 % (20.0-45.0) L Monocytes (%) (Auto) 5.4 % (1.0-10.0) Eosinophils (%) (Auto) 0.1 % (0.0-3.0) Basophils (%) (Auto) 1.2 % (0.0-2.0) Activated Partial Thromboplast Time 54 SEC (23-33) H 100 SEC (23-33) H 73 SEC (23-33) H Sodium Level 141 MMOL/L (136-145) Potassium Level 3.7 MMOL/L (3.5-5.1) Chloride Level 109 MMOL/L (98-107) H Carbon Dioxide Level 26 MMOL/L (21-32) Anion Gap 6 mmol/L (5-15) Blood Urea Nitrogen 7 mg/dL (7-18) Creatinine 0.5 MG/DL (0.55-1.30) L Estimat Glomerular Filtration Rate mL/min (>60) Glucose Level 105 MG/DL (74-106) Calcium Level 7.6 MG/DL (8.5-10.1) L Magnesium Level 1.6 MG/DL (1.8-2.4) L Total Bilirubin 0.2 MG/DL (0.2-1.0) Aspartate Amino Transf (AST/SGOT) 23 U/L (15-37) Alanine Aminotransferase (ALT/SGPT) 14 U/L (12-78) Alkaline Phosphatase 44 U/L (46-116) L Total Protein 5.0 G/DL (6.4-8.2) L Albumin 1.4 G/DL (3.4-5.0) L Globulin 3.6 g/dL Albumin/Globulin Ratio 0.4 (1.0-2.7) L HIV (1&2) Antibody Rapid Negative (NEGATIVE) Arterial Blood pH 7.380 (7.350-7.450) Arterial Blood Partial Pressure CO2 41.6 mmHg (35.0-45.0) Arterial Blood Partial Pressure O2 57.4 mmHg (75.0-100.0) L Arterial Blood HCO3 24.4 mmol/L (22.0-26.0) Arterial Blood Oxygen Saturation 89.2 % (92.0-98.0) L Arterial Blood Base Excess -0.5 Jamie Test Positive Objective HEAD AND NECK: Atruamatic, normocephalic, PERRLA, EOMI, Shows no JVD. LUNGS: Decreased breath sounds. Coarse rhonchi. CARDIOVASCULAR: Shows regular S1 and S2 with no gallops, murmurs or rub. ABDOMEN: Soft, NT/ND, + BS EXTREMITIES: No pitting edema. CHELSIE CHAIDEZ Jul 22, 2017 23:43
[2017-07-23] VITALS (24 sets, daily range): BP systolic 55–148; BP diastolic 35–109
[2017-07-23] MEDS: Ipratropium 0.02% Inh Soln 2.5ml UD HHN SCH ×4 (01:09→19:08)
[2017-07-23] MEDS: Levalbuterol Inh UD 1.25mg/0.5ml HHN SCH ×4 (01:13→19:08)
[2017-07-23] MEDS: LORazepam Inj 2mg/ml 1ml IV PRN (01:34)
[2017-07-23 04:47] LABS: HEMATOCRIT 27.7 % (37.0-47.0); HEMOGLOBIN 8.7 G/DL (12.0-16.0); MEAN CORPUSCULAR VOLUME 87 FL (80-99); PLATELET COUNT 272 K/UL (150-450); RED CELL DISTRIBUTION WIDTH 20.2 % (11.6-14.8); WHITE BLOOD COUNT 19.6 K/UL (4.8-10.8)
[2017-07-23] MEDS ORDERED: Heparin 25,000u/D5W 500ml 500 ML IV SCH (05:15)
[2017-07-23 05:23] LABS: ALANINE AMINOTRANSFERASE 10 U/L (12-78); ALBUMIN 1.4 G/DL (3.4-5.0); ALBUMIN/GLOBULIN RATIO 0.4 (1.0-2.7); ALKALINE PHOSPHATASE 47 U/L (46-116); ANION GAP 7 mmol/L (5-15); ASPARTATE AMINO TRANSFERASE 16 U/L (15-37); BILIRUBIN,TOTAL 0.4 MG/DL (0.2-1.0); BLOOD UREA NITROGEN 8 mg/dL (7-18); CALCIUM 7.9 MG/DL (8.5-10.1); CARBON DIOXIDE 26 MMOL/L (21-32); CHLORIDE 109 MMOL/L (98-107); CREATININE 0.6 MG/DL (0.55-1.30); POTASSIUM 3.4 MMOL/L (3.5-5.1); SODIUM 142 MMOL/L (136-145)
[2017-07-23] MEDS: Pantoprazole 80 MG in NS 250 ML IV SCH ×2 (08:54→18:31)
[2017-07-23] MEDS: Aspirin Baby 81mg NG SCH (08:55)
[2017-07-23] MEDS: Metoprolol Tartrate 12.5mg TAB ORAL SCH ×2 (08:55→20:49)
[2017-07-23] MEDS: Vancomycin 1250mg/D5W 250ml IVPB SCH (08:55)
[2017-07-23] MEDS: Meropenem 500mg in NS 55ml IVPB SCH ×2 (08:55→19:44)
[2017-07-23] MEDS ORDERED: Heparin 2000 units/Ns 1000ml INJ PRN (09:45)
[2017-07-23] MEDS ORDERED: Lidocaine 1% Plain 30 ml INJ PRN (09:45)
--- NOTE | 2017-07-23 09:46 | Pulmonolgy Critical Care Note ---
Critical Care - Asmt/Plan Problems: (1) Ventilator dependent Assessment & Plan: Extubated 07/21, placed on BiPAP later the same day for hypoxemia and hypercapnia (2) Pneumonia (3) Elevated troponin (4) Septic shock (5) Demand ischemia of myocardium (6) Transaminitis (7) CVA (cerebral vascular accident) (8) Ischemic cardiomyopathy (9) Alzheimer's dementia (10) CAD s/p PCI (11) diffuse severe gastropathy (12) lives at snf (13) paroxsymal atrial fibrillation (14) Acute on chronic diastolic heart failure (15) NSTEMI (non-ST elevated myocardial infarction) (16) Failure to thrive (17) Functional quadriplegia (18) Generalized weakness (19) S/P percutaneous endoscopic gastrostomy (PEG) tube placement Assessment/Plan: -Continue BiPAP --> will attempt to wean off throughout the day -Very cautious TF"s while on BiPAP -Atrovent and Xopenex HHN's q6WA and q4 PRN -Abx per ID -IV PPI & IV Venofer, monitor for bleeding, F/U GI recs -[facility] per cards -STAT CT head, neuro eval -Monitor volumes --> Start Lasix 40 IV BID -PICC, then D/C CVC -Wound care -FC. continue to discuss GOC D/W INTERNAL MEDICINE NURSE PRACTITIONER and RT CC 45 Critical Care - Objective Last 24 Hour Vital Signs Date Time Temp Pulse Resp B/P (MAP) Pulse Ox O2 Delivery O2 Flow Rate FiO2 07/23/17 09:00 97 37 111/59 97 Bi-pap 50 07/23/17 08:55 96 119/69 07/23/17 08:45 93 30 91 Facial 60 07/23/17 08:00 96 33 119/69 96 Bi-pap 50 07/23/17 07:00 98.2 105 26 102/69 95 Bi-pap 50 07/23/17 07:00 105 30 95 Bi-pap 60 07/23/17 07:00 105 26 94 Bi-pap 60 07/23/17 06:55 113 30 93 Facial 60 07/23/17 06:50 99 30 91 Bi-pap 60 07/23/17 06:50 99 30 91 Bi-pap 60 07/23/17 06:00 114 33 121/49 90 Bi-pap 50 07/23/17 05:09 113 30 93 Facial 60 07/23/17 05:00 102 35 122/52 90 Bi-pap 50 07/23/17 04:00 98.3 106 31 132/73 89 Bi-pap 50 07/23/17 04:00 102 07/23/17 04:00 50.0 07/23/17 03:00 102 32 123/59 90 Bi-pap 50 07/23/17 02:38 102 25 92 Facial 60 07/23/17 02:00 104 22 129/73 92 Bi-pap 50 07/23/17 01:25 99 26 94 Bi-pap 60 07/23/17 01:06 60 07/23/17 01:05 105 30 91 Bi-pap 60 07/23/17 01:04 105 30 91 Facial 50 07/23/17 01:00 99 20 141/86 90 Bi-pap 50 07/23/17 00:00 50.0 07/23/17 00:00 93 07/23/17 00:00 98.0 93 34 130/72 90 Bi-pap 50 07/22/17 23:23 87 36 92 Facial 50 07/22/17 23:00 88 32 133/65 93 Bi-pap 50 07/22/17 22:15 124/58 07/22/17 22:00 83 32 124/58 95 Bi-pap 50 07/22/17 21:04 103 118/63 07/22/17 21:00 102 35 124/50 94 Bi-pap 50 07/22/17 20:56 98 32 95 Facial 50 07/22/17 20:03 97.5 92 32 118/63 96 Bi-pap 50 07/22/17 20:00 50.0 07/22/17 20:00 92 07/22/17 19:25 95 28 95 Bi-pap 50 07/22/17 19:25 94 28 95 Bi-pap 50 07/22/17 19:11 50 07/22/17 19:11 50 07/22/17 19:10 90 31 93 50 07/22/17 19:10 90 31 93 Bi-pap 50 07/22/17 19:00 83 24 124/56 96 Bi-pap 50 07/22/17 18:57 90 31 93 Facial 50 07/22/17 18:00 87 26 128/58 96 Bi-pap 50 07/22/17 17:00 50.0 07/22/17 17:00 79 25 107/47 98 Bi-pap 50 07/22/17 16:58 76 28 97 Facial 50 07/22/17 16:00 78 07/22/17 16:00 70.0 07/22/17 16:00 97.9 80 26 122/52 96 Bi-pap 70 07/22/17 15:00 76 27 113/52 99 Bi-pap 70 07/22/17 14:45 76 28 99 Facial 70 07/22/17 14:03 81 33 100 Bi-pap 70 07/22/17 14:03 81 33 100 Bi-pap 70 07/22/17 14:00 79 30 108/47 99 Bi-pap 70 07/22/17 13:52 74 30 96 Bi-pap 70 07/22/17 13:52 40 07/22/17 13:36 73 31 97 Bi-pap 70 07/22/17 13:36 36 07/22/17 13:00 80 24 134/58 97 Bi-pap 70 07/22/17 12:53 81 33 92 Facial 70 07/22/17 12:00 80 07/22/17 12:00 98.1 84 28 131/81 97 Bi-pap 60 07/22/17 11:00 70 28 120/54 95 Bi-pap 50 07/22/17 10:30 81 33 92 Facial 50 07/22/17 10:00 70 23 112/63 95 Bi-pap 50 Status: awake, other - confused on BiPAP Condition: critical HEENT: atraumatic, normocephalic, other - BiPAP Neck: other - JVP 8 cm Lungs: rales - BiB rales, rhonchi - scattered Heart: HR/BP stable Abdomen: soft, non-tender, active bowel sounds, feeding tube Extremities: edema - 1-2+ Critical Care - Subjective ROS Limited/Unobtainable: Yes ICU Day: 8 Intubation Day: N/A - BiPAP Interval Events: AFVSS, remains on BiPAP, tried to take it off a few times but rapidly desats, WCt 20 CXR with B infiltrates, PVC and effusion MS unchanged Condition: critical IV Access: central - R FEM CVC EKG Rhythm: Sinus Rhythm FI02: 50 Vent Support Breath Rate: 16 Vent Support Mode: CPAP Vent Tidal Volume: 500 Sputum Amount: None PEEP: 5.0 PIP: 14 Tube Feeding Amount: 0 I&O: Intake and Output 07/22/17 07/23/17 19:00 07:00 Intake Total 957.140 ml 539.870 ml Output Total 630 ml 1905 ml Balance 327.140 ml -1365.130 ml IV Total 857.140 ml 539.870 ml Tube Feeding 50 ml 0 ml Other 50 ml Output Urine Total 630 ml 1905 ml ET-Tube: 7.5 ET Position: 23 Labs: Laboratory Tests Test 07/22/17 11:47 07/22/17 12:00 07/22/17 19:35 07/23/17 04:00 Arterial Blood pH 7.380 (7.350-7.450) Arterial Blood Partial Pressure CO2 41.6 mmHg (35.0-45.0) Arterial Blood Partial Pressure O2 57.4 mmHg (75.0-100.0) L Arterial Blood HCO3 24.4 mmol/L (22.0-26.0) Arterial Blood Oxygen Saturation 89.2 % (92.0-98.0) L Arterial Blood Base Excess -0.5 Jamie Test Positive Activated Partial Thromboplast Time 100 SEC (23-33) H 73 SEC (23-33) H 101 SEC (23-33) H White Blood Count 19.6 K/UL (4.8-10.8) #H Red Blood Count 3.20 M/UL (4.20-5.40) L Hemoglobin 8.7 G/DL (12.0-16.0) L Hematocrit 27.7 % (37.0-47.0) L Mean Corpuscular Volume 87 FL (80-99) Mean Corpuscular Hemoglobin 27.3 PG (27.0-31.0) Mean Corpuscular Hemoglobin Concent 31.5 G/DL (32.0-36.0) L Red Cell Distribution Width 20.2 % (11.6-14.8) H Platelet Count 272 K/UL (150-450) Mean Platelet Volume 9.6 FL (6.5-10.1) Neutrophils (%) (Auto) % (45.0-75.0) Lymphocytes (%) (Auto) % (20.0-45.0) Monocytes (%) (Auto) % (1.0-10.0) Eosinophils (%) (Auto) % (0.0-3.0) Basophils (%) (Auto) % (0.0-2.0) Differential Total Cells Counted 100 Neutrophils % (Manual) 91 % (45-75) H Lymphocytes % (Manual) 4 % (20-45) L Monocytes % (Manual) 4 % (1-10) Eosinophils % (Manual) 0 % (0-3) Basophils % (Manual) 0 % (0-2) Band Neutrophils 1 % (0-8) Platelet Estimate Adequate Platelet Morphology Normal Hypochromasia 1+ Anisocytosis 2+ Ovalocytes Occasional Sodium Level 142 MMOL/L (136-145) Potassium Level 3.4 MMOL/L (3.5-5.1) L Chloride Level 109 MMOL/L (98-107) H Carbon Dioxide Level 26 MMOL/L (21-32) Anion Gap 7 mmol/L (5-15) Blood Urea Nitrogen 8 mg/dL (7-18) Creatinine 0.6 MG/DL (0.55-1.30) Estimat Glomerular Filtration Rate mL/min (>60) Glucose Level 143 MG/DL (74-106) H Calcium Level 7.9 MG/DL (8.5-10.1) L Total Bilirubin 0.4 MG/DL (0.2-1.0) Aspartate Amino Transf (AST/SGOT) 16 U/L (15-37) Alanine Aminotransferase (ALT/SGPT) 10 U/L (12-78) L Alkaline Phosphatase 47 U/L (46-116) Pro-B-Type Natriuretic Peptide 31783 pg/mL (0-125) H Total Protein 5.3 G/DL (6.4-8.2) L Albumin 1.4 G/DL (3.4-5.0) L Globulin 3.9 g/dL Albumin/Globulin Ratio 0.4 (1.0-2.7) L FRANCOIS ZUNIGA M.D. Jul 23, 2017 09:46
--- NOTE | 2017-07-23 11:50 | GI Progress Note ---
Assessment/Plan Problems: (1) S/P percutaneous endoscopic gastrostomy (PEG) tube placement ICD Codes: Z93.1 - Gastrostomy status SNOMED: 570643981 (2) Failure to thrive SNOMED: 34140527 (3) Ventilator dependent ICD Codes: Z99.11 - Dependence on respirator [ventilator] status SNOMED: 628310500 (4) NSTEMI (non-ST elevated myocardial infarction) ICD Codes: I21.4 - Non-ST elevation (NSTEMI) myocardial infarction SNOMED: 951000858 (5) Severe sepsis ICD Codes: A41.9 - Sepsis, unspecified organism; R65.20 - Severe sepsis without septic shock SNOMED: 39784273 (6) Elevated troponin ICD Codes: R74.8 - Abnormal levels of other serum enzymes SNOMED: 075390802, 925578363 (7) Anemia ICD Codes: D64.9 - Anemia, unspecified SNOMED: 642631453 (8) Weakness ICD Codes: R53.1 - Weakness SNOMED: 02123111 (9) Transaminitis ICD Codes: R74.0 - Nonspecific elevation of levels of transaminase and lactic acid dehydrogenase [LDH] SNOMED: 515389722 (10) Protein-calorie malnutrition, severe ICD Codes: E43 - Unspecified severe protein-calorie malnutrition SNOMED: 033449746 (11) Dehydration ICD Codes: E86.0 - Dehydration SNOMED: 59046175 (12) Septic shock ICD Codes: A41.9 - Sepsis, unspecified organism; R65.21 - Severe sepsis with septic shock SNOMED: 77968569 Status: not improved, unchanged Status Narrative Discussed with Dr. Sierra. Assessment/Plan Assessment - respiratory failure - dysphagia, s/p prior GJ tube >> now changed to GT - UGIB - no plans for EGD at this time due to SC - NSTEMI - AMS - Anemia - OB stool positive pt extubated, now on facial Recommendations EGD to be scheduled pending cardiac clearance, will consider replacement of GJ tube if necessary. - patient is also on Eliquis which must dc 48-72 hours min prior any GI procedures Gastric Lavage 500 cc r/o UGIB >> POSITIVE, will require EGD when stable. start GTFs today monitor H&H closely, stable last few days cardiology f/u PPI gtt fu labs Subjective Subjective limited Objective Last 24 Hour Vital Signs Date Time Temp Pulse Resp B/P (MAP) Pulse Ox O2 Delivery O2 Flow Rate FiO2 07/23/17 11:33 77 31 96 Facial 60 07/23/17 11:00 84 36 107/50 94 Non-Rebreather 100 07/23/17 10:24 96 38 92 Facial 60 07/23/17 10:21 96 38 88 07/23/17 10:00 83 33 120/47 83 Non-Rebreather 100 07/23/17 10:00 75 30 89 07/23/17 09:00 97 37 111/59 97 Bi-pap 50 07/23/17 08:55 96 119/69 07/23/17 08:45 93 30 91 Facial 60 07/23/17 08:00 96 07/23/17 08:00 50.0 07/23/17 08:00 96 33 119/69 96 Bi-pap 50 07/23/17 07:00 98.2 105 26 102/69 95 Bi-pap 50 07/23/17 07:00 105 30 95 Bi-pap 60 07/23/17 07:00 105 26 94 Bi-pap 60 07/23/17 06:55 113 30 93 Facial 60 07/23/17 06:50 99 30 91 Bi-pap 60 07/23/17 06:50 99 30 91 Bi-pap 60 07/23/17 06:00 114 33 121/49 90 Bi-pap 50 07/23/17 05:09 113 30 93 Facial 60 07/23/17 05:00 102 35 122/52 90 Bi-pap 50 07/23/17 04:00 98.3 106 31 132/73 89 Bi-pap 50 07/23/17 04:00 102 07/23/17 04:00 50.0 07/23/17 03:00 102 32 123/59 90 Bi-pap 50 07/23/17 02:38 102 25 92 Facial 60 07/23/17 02:00 104 22 129/73 92 Bi-pap 50 07/23/17 01:25 99 26 94 Bi-pap 60 07/23/17 01:06 60 07/23/17 01:05 105 30 91 Bi-pap 60 07/23/17 01:04 105 30 91 Facial 50 07/23/17 01:00 99 20 141/86 90 Bi-pap 50 07/23/17 00:00 50.0 07/23/17 00:00 93 07/23/17 00:00 98.0 93 34 130/72 90 Bi-pap 50 07/22/17 23:23 87 36 92 Facial 50 07/22/17 23:00 88 32 133/65 93 Bi-pap 50 07/22/17 22:15 124/58 07/22/17 22:00 83 32 124/58 95 Bi-pap 50 07/22/17 21:04 103 118/63 07/22/17 21:00 102 35 124/50 94 Bi-pap 50 07/22/17 20:56 98 32 95 Facial 50 07/22/17 20:03 97.5 92 32 118/63 96 Bi-pap 50 07/22/17 20:00 50.0 07/22/17 20:00 92 07/22/17 19:25 95 28 95 Bi-pap 50 07/22/17 19:25 94 28 95 Bi-pap 50 07/22/17 19:11 50 07/22/17 19:11 50 07/22/17 19:10 90 31 93 50 07/22/17 19:10 90 31 93 Bi-pap 50 07/22/17 19:00 83 24 124/56 96 Bi-pap 50 07/22/17 18:57 90 31 93 Facial 50 07/22/17 18:00 87 26 128/58 96 Bi-pap 50 07/22/17 17:00 50.0 07/22/17 17:00 79 25 107/47 98 Bi-pap 50 07/22/17 16:58 76 28 97 Facial 50 07/22/17 16:00 78 07/22/17 16:00 70.0 07/22/17 16:00 97.9 80 26 122/52 96 Bi-pap 70 07/22/17 15:00 76 27 113/52 99 Bi-pap 70 07/22/17 14:45 76 28 99 Facial 70 07/22/17 14:03 81 33 100 Bi-pap 70 07/22/17 14:03 81 33 100 Bi-pap 70 07/22/17 14:00 79 30 108/47 99 Bi-pap 70 07/22/17 13:52 74 30 96 Bi-pap 70 17 13:52 40 12/20/17 13:36 73 31 97 Bi-pap 70 07/22/17 13:36 36 07/22/17 13:00 80 24 134/58 97 Bi-pap 70 07/22/17 12:53 81 33 92 Facial 70 07/22/17 12:00 80 07/22/17 12:00 98.1 84 28 131/81 97 Bi-pap 60 Intake and Output 07/22/17 07/23/17 19:00 07:00 Intake Total 957.140 ml 539.870 ml Output Total 630 ml 1905 ml Balance 327.140 ml -1365.130 ml IV Total 857.140 ml 539.870 ml Tube Feeding 50 ml 0 ml Other 50 ml Output Urine Total 630 ml 1905 ml Laboratory Tests Test 07/22/17 12:00 07/22/17 19:35 07/23/17 04:00 07/23/17 11:15 Activated Partial Thromboplast Time 100 SEC (23-33) H 73 SEC (23-33) H 101 SEC (23-33) H Pending White Blood Count 19.6 K/UL (4.8-10.8) #H Red Blood Count 3.20 M/UL (4.20-5.40) L Hemoglobin 8.7 G/DL (12.0-16.0) L Hematocrit 27.7 % (37.0-47.0) L Mean Corpuscular Volume 87 FL (80-99) Mean Corpuscular Hemoglobin 27.3 PG (27.0-31.0) Mean Corpuscular Hemoglobin Concent 31.5 G/DL (32.0-36.0) L Red Cell Distribution Width 20.2 % (11.6-14.8) H Platelet Count 272 K/UL (150-450) Mean Platelet Volume 9.6 FL (6.5-10.1) Neutrophils (%) (Auto) % (45.0-75.0) Lymphocytes (%) (Auto) % (20.0-45.0) Monocytes (%) (Auto) % (1.0-10.0) Eosinophils (%) (Auto) % (0.0-3.0) Basophils (%) (Auto) % (0.0-2.0) Differential Total Cells Counted 100 Neutrophils % (Manual) 91 % (45-75) H Lymphocytes % (Manual) 4 % (20-45) L Monocytes % (Manual) 4 % (1-10) Eosinophils % (Manual) 0 % (0-3) Basophils % (Manual) 0 % (0-2) Band Neutrophils 1 % (0-8) Platelet Estimate Adequate Platelet Morphology Normal Hypochromasia 1+ Anisocytosis 2+ Ovalocytes Occasional Sodium Level 142 MMOL/L (136-145) Potassium Level 3.4 MMOL/L (3.5-5.1) L Chloride Level 109 MMOL/L (98-107) H Carbon Dioxide Level 26 MMOL/L (21-32) Anion Gap 7 mmol/L (5-15) Blood Urea Nitrogen 8 mg/dL (7-18) Creatinine 0.6 MG/DL (0.55-1.30) Estimat Glomerular Filtration Rate mL/min (>60) Glucose Level 143 MG/DL (74-106) H Calcium Level 7.9 MG/DL (8.5-10.1) L Total Bilirubin 0.4 MG/DL (0.2-1.0) Aspartate Amino Transf (AST/SGOT) 16 U/L (15-37) Alanine Aminotransferase (ALT/SGPT) 10 U/L (12-78) L Alkaline Phosphatase 47 U/L (46-116) Pro-B-Type Natriuretic Peptide 69148 pg/mL (0-125) H Total Protein 5.3 G/DL (6.4-8.2) L Albumin 1.4 G/DL (3.4-5.0) L Globulin 3.9 g/dL Albumin/Globulin Ratio 0.4 (1.0-2.7) L Height (Feet): 5 Height (Inches): 2.00 Weight (Pounds): 142 Cardiovascular: normal rate Respiratory/Chest: normal breath sounds, no respiratory distress, other - facial Abdominal Exam: normal bowel sounds, non tender, soft, GT site - c/d/i Extremities: non-tender [place] Colon N.Mahin Jul 23, 2017 11:49
--- NOTE | 2017-07-23 12:41 | Neurology Progress Note ---
Interim History Interim History Interim History Ms. Loving continues to be encephalopathic. She is on BiPAP now. Her cerebration is slow. She is disoriented. She is generally weak. Review of Systems Neuro Review of Systems Unable to obtain. Objective Physical Exam Last Vital Signs Date Time Temp Pulse Resp B/P (MAP) Pulse Ox O2 Delivery O2 Flow Rate FiO2 07/23/17 12:11 50.0 07/23/17 12:00 98.5 89 28 115/49 98 Bi-pap 50 Laboratory Tests Test 07/22/17 19:35 07/23/17 04:00 07/23/17 11:15 07/23/17 11:45 Activated Partial Thromboplast Time 73 SEC (23-33) H 101 SEC (23-33) H 85 SEC (23-33) H White Blood Count 19.6 K/UL (4.8-10.8) #H Red Blood Count 3.20 M/UL (4.20-5.40) L Hemoglobin 8.7 G/DL (12.0-16.0) L Hematocrit 27.7 % (37.0-47.0) L Mean Corpuscular Volume 87 FL (80-99) Mean Corpuscular Hemoglobin 27.3 PG (27.0-31.0) Mean Corpuscular Hemoglobin Concent 31.5 G/DL (32.0-36.0) L Red Cell Distribution Width 20.2 % (11.6-14.8) H Platelet Count 272 K/UL (150-450) Mean Platelet Volume 9.6 FL (6.5-10.1) Neutrophils (%) (Auto) % (45.0-75.0) Lymphocytes (%) (Auto) % (20.0-45.0) Monocytes (%) (Auto) % (1.0-10.0) Eosinophils (%) (Auto) % (0.0-3.0) Basophils (%) (Auto) % (0.0-2.0) Differential Total Cells Counted 100 Neutrophils % (Manual) 91 % (45-75) H Lymphocytes % (Manual) 4 % (20-45) L Monocytes % (Manual) 4 % (1-10) Eosinophils % (Manual) 0 % (0-3) Basophils % (Manual) 0 % (0-2) Band Neutrophils 1 % (0-8) Platelet Estimate Adequate Platelet Morphology Normal Hypochromasia 1+ Anisocytosis 2+ Ovalocytes Occasional Sodium Level 142 MMOL/L (136-145) Potassium Level 3.4 MMOL/L (3.5-5.1) L Chloride Level 109 MMOL/L (98-107) H Carbon Dioxide Level 26 MMOL/L (21-32) Anion Gap 7 mmol/L (5-15) Blood Urea Nitrogen 8 mg/dL (7-18) Creatinine 0.6 MG/DL (0.55-1.30) Estimat Glomerular Filtration Rate mL/min (>60) Glucose Level 143 MG/DL (74-106) H Calcium Level 7.9 MG/DL (8.5-10.1) L Total Bilirubin 0.4 MG/DL (0.2-1.0) Aspartate Amino Transf (AST/SGOT) 16 U/L (15-37) Alanine Aminotransferase (ALT/SGPT) 10 U/L (12-78) L Alkaline Phosphatase 47 U/L (46-116) Pro-B-Type Natriuretic Peptide 57793 pg/mL (0-125) H Total Protein 5.3 G/DL (6.4-8.2) L Albumin 1.4 G/DL (3.4-5.0) L Globulin 3.9 g/dL Albumin/Globulin Ratio 0.4 (1.0-2.7) L Arterial Blood pH 7.402 (7.350-7.450) Arterial Blood Partial Pressure CO2 39.8 mmHg (35.0-45.0) Arterial Blood Partial Pressure O2 60.8 mmHg (75.0-100.0) L Arterial Blood HCO3 24.2 mmol/L (22.0-26.0) Arterial Blood Oxygen Saturation 89.0 % (92.0-98.0) L Arterial Blood Base Excess -0.5 Jamie Test Positive Neurologic Exam Objective PHYSICAL EXAMINATION: GENERAL: She is a well-developed, but lean and ill-looking lady, lying in an intensive care unit bed with a BiPAP machine connected to her. HEAD: Normocephalic with a right temporoparietal skull defect. EENT: Examination benign. NECK: No neck rigidity was observed. NEUROLOGICAL EXAMINATION: MENTAL STATUS EXAMINATION: She was somnolent, but was arousable. When aroused , she followed commands inconsistently. She was able to give a few yes and no answers, but was unable to communicate in an effective manner. SPEECH: She had significant dysarthria. LANGUAGE: Could not be tested adequately because of her altered mental state. CRANIAL NERVE EXAMINATION: II: She did blink to threat. III, IV & : The external ocular movements were present and the pupils 3 mm in diameter, equal, round, regular, and reactive to light. V & VII: The corneal reflexes were brisk, but brisker on the right than on the left. She also had mild flattening of the left nasolabial fold. VIII: She seemed to be able to hear well and had no nystagmus. IX & X: Could not be tested adequately. XI: The sternocleidomastoids and trapezii did function. XII: She did protrude the tongue minimally, but could not protrude it completely. MOTOR SYSTEM: The tone was increased in all four extremities with a mild degree of spasticity, slightly more marked on the left side compared to the right. Examination of muscle mass revealed generalized muscle wasting with bilateral ankle cord contractures. Examination of power was exceedingly difficult to perform because of varying degrees of cooperation. She, however, did move all four extremities on command. SENSORY EXAMINATION: She responded appropriately to deep pain. Other sensory modalities could not be tested. REFLEXES: Trace+ on the right and 1+ on the left at the biceps, triceps, brachioradialis, and knees and 0 at both ankles. The plantar responses were extensor bilaterally. COORDINATION, STANCE & GAIT: Could not be tested. Impression/Recommendations Diagnostic Impression 1. Ms. Beatriz Loving is an 87-year-old, lady, of unknown handedness, who does have a past history of hypertension, coronary artery disease, paroxysmal atrial fibrillation, Alzheimer disease, cerebrovascular disease, and right brain surgery for reasons unknown to us, who lives in a [facility]p. She was hospitalized on 07/16/2017 for shortness of breath associated with hypoxia, elevated troponin, a urinary tract infection, and possibly a pneumonic process. She was stabilized and on 07/21/2017 was extubated. Following that, she was brighter, but later on 07/22/17 she was noted to be more somnolent and slurring her speech. 2. She is still significantly encephalopathic and still on BiPAP. 3. On neurological examination, at this time, she does have a right temporoparietal skull defect, is somnolent, but arousable, is oriented to self only, is unable to cooperate for further mental status testing, is significantly dysarthric, is unable to cooperate for language testing, is generally weak with a spastic quadriparesis, slightly more marked on the left than on the right, and has globally diminished deep tendon reflexes that are slightly brisker on the left than the right with extensor plantar responses bilaterally. 4. The CT scan of the brain without contrast reveals atrophy, deep white matter changes, and a right temporoparietal craniotomy defect, but no acute pathology. 5. Laboratory data on admission revealed that she had a significant leukocytosis with a WBC count of 15.7. She was anemic with a hemoglobin of 9.1. She had a left-sided shift on her white blood cell count. Her arterial blood gas revealed a pCO2 of 51 and a pO2 of 116. A chemistry panel revealed a sodium down to 133, potassium elevated to 5.3, BUN elevated to 24, her glucose elevated to 278, AST elevated to 138, ProBNP was greater than 35,000, her albumin was down to 2.0, and her troponin was elevated to 10.3. Her urinalysis revealed 3+ leukocyte esterase, too numerous to count red blood cells and white blood cells, and many urinary bacteria. 6. She still has a significant leukocytosis and is hypoxic. 7. 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 Recommendations 1. Continue present management. 2. Continue to correct the patient's toxic metabolic imbalances. 3. Correct the patient's anemia to a hemoglobin of greater than 10 G. 4. Await EEG to evaluate the patient for the degree and type of cerebral dysfunction and to exclude ongoing ictal or interictal phenomena. 5. Observe closely. Daniel Fuller M.D., MChelseaSDANIEL CASTRO Jul 23, 2017 12:41
--- NOTE | 2017-07-23 12:46 | Diagnostic Imaging Report ---
Indication: Abnormal chest sounds Technique: One view of the chest Comparison: 07/22/2017 Findings: Bilateral left greater than right pleural effusions are again demonstrated, perhaps slightly improved on the left and slightly increased on the right. Extensive interstitial and alveolar airspace infiltrates versus edema persist, unchanged coronary stent, upper abdominal surgical clips and john are again demonstrated Impression: Possible slight improvement of previously demonstrated large left pleural effusion. Possible slight worsening of previously demonstrated small right pleural effusion Unchanged bilateral diffuse interstitial and alveolar infiltrates versus edema
[2017-07-23] MEDS: Heparin 25,000u/D5W 500ml 500 ML IV SCH (13:00)
--- NOTE | 2017-07-23 14:48 | General Progress Note ---
Assessment/Plan Problem List: (1) Acute respiratory failure with hypoxia and hypercapnia ICD Codes: J96.01 - Acute respiratory failure with hypoxia; J96.02 - Acute respiratory failure with hypercapnia SNOMED: 96219748, 39057675, 768893551 (2) Severe sepsis ICD Codes: A41.9 - Sepsis, unspecified organism; R65.20 - Severe sepsis without septic shock SNOMED: 48302157 (3) HCAP vs Aspiration pneumonia (4) UTI (urinary tract infection) ICD Codes: N39.0 - Urinary tract infection, site not specified SNOMED: 89305846 (5) Lactic acid acidosis ICD Codes: E87.2 - Acidosis SNOMED: 48715380 (6) NSTEMI (non-ST elevated myocardial infarction) ICD Codes: I21.4 - Non-ST elevation (NSTEMI) myocardial infarction SNOMED: 349375838 (7) Acute on chronic anemia (8) Hyponatremia ICD Codes: E87.1 - Hypo-osmolality and hyponatremia SNOMED: 37629218 (9) paroxsymal atrial fibrillation (10) CAD s/p PCI (11) Ischemic cardiomyopathy ICD Codes: I25.5 - Ischemic cardiomyopathy SNOMED: 468553270 (12) CVA (cerebral vascular accident) ICD Codes: I63.9 - Cerebral infarction, unspecified SNOMED: 204164780 (13) Alzheimer's dementia ICD Codes: G30.9 - Alzheimer's disease, unspecified SNOMED: 46377854 Status: stable Assessment/Plan Continue in ICU Pulm, cardiology, ID, GI consulted, appreciate rec's s/p extubation on 07/21/17 Cont BiPAP per pulm and wean as tolerated Lasix 40mg IV BID Cont empiric vanco, zosyn, azithro per ID (07/16-), s/p amikacin F/u cultures Neurology consulted given new onset slurred speech. CT head negative. F/u EEG Trend CBC, BMP, lactate Trend trop/EKG --> trop downtrending F/u TTE --> 45% EF with mild LVDD Cont heparin gtt per cardiology (Eliquis on hold) s/p 1 unit pRBC transfusion 07/17. Gastric lavage on 07/17 showed e/o bleeding but currently no active signs of bleeding Patient will eventually need EGD/colonoscopy to assess for GIB given acute drop in hemoglobin and positive FOBT. However, patient is unstable at the moment given NSTEMI/elevated trops. Awaiting cardiac clearance Continue PPI gtt Continue IV venofer Cont G-tube feedings per GI Supportive care DVT Prophylaxis: SCD, heparin gtt Code Status: Full per discussion w/ pt's DPOA/daughter Hospital Classification Declaration: Based on this initial evaluation, and depending on the patient's clinical course, I anticipate that this patient will require hospitalization for 2-3 days for acute respiratory faiure, severe sepsis and close respiratory/hemodynamic monitoring. Disposition: Once the patient is stable to leave the hospital, I anticipate the patient will likely be discharged to the following environment: back to SNF At the time of my involvement, the patient's condition was critical with high potential for and/or physiologic deterioration secondary to acute respiratory failure, severe sepsis as delineated in the note above. On the above date of service, I spent a total of 36 minutes in the ICU evaluating, managing, and providing critical care services to this patient, including time spent documenting these activities, counseling patient/family, and coordinating care. Critical care services performed include: Telemetry Review Hemodynamic measurement interpretation Laboratory data review and interpretation BiPAP setting review, management, and adjustment Discussion of care plans with patient, family, and/or surrogate decision makers Discussion of patient's care with primary medical team, surgical team, and/or consulting service Decision to obtain further radiologic evaluation, after consideration of risk/ benefit ratio Review of most recent microbiology results with assessment and modification of antimicrobial coverage Discussion of patient's code status and further advancement towards the ultimate goals of care Plan outlined above discussed with patient/family, [employer], ICU team, and involved physicians/consultants. Time of note may not reflect time of encounter. Subjective Date patient seen: Jul 23, 2017 Time patient seen: 14:48 ROS Limited/Unobtainable: Yes Allergies: Coded Allergies: No Known Allergies (Unverified , 05/25/13) Subjective No acute o/n events Extubated on 07/21 but placed on BiPAP later that day for hypoxemia and hypercapnia Cont on BiPAP Lethargic but arousable Objective Last 24 Hour Vital Signs Date Time Temp Pulse Resp B/P (MAP) Pulse Ox O2 Delivery O2 Flow Rate FiO2 07/23/17 14:00 88 30 118/61 92 Bi-pap 60 07/23/17 13:29 91 35 97 Bi-pap 60 07/23/17 13:19 90 30 94 Bi-pap 60 07/23/17 13:04 87 36 94 Bi-pap 60 07/23/17 13:00 89 35 55/50 97 Bi-pap 60 07/23/17 12:54 77 35 96 Facial 60 07/23/17 12:54 80 35 95 Bi-pap 60 07/23/17 12:11 50.0 07/23/17 12:00 98.5 89 28 115/49 98 Bi-pap 60 07/23/17 12:00 80 07/23/17 11:33 77 31 96 Facial 60 07/23/17 11:00 84 36 107/50 94 Bi-pap 60 07/23/17 10:24 96 38 92 Facial 60 07/23/17 10:21 96 38 88 07/23/17 10:00 83 33 120/47 83 Non-Rebreather 100 07/23/17 10:00 75 30 89 07/23/17 09:00 97 37 111/59 97 Bi-pap 50 07/23/17 08:55 96 119/69 07/23/17 08:45 93 30 91 Facial 60 07/23/17 08:00 96 07/23/17 08:00 50.0 07/23/17 08:00 96 33 119/69 96 Bi-pap 50 07/23/17 07:00 98.2 105 26 102/69 95 Bi-pap 50 07/23/17 07:00 105 30 95 Bi-pap 60 07/23/17 07:00 105 26 94 Bi-pap 60 07/23/17 06:55 113 30 93 Facial 60 07/23/17 06:50 99 30 91 Bi-pap 60 07/23/17 06:50 99 30 91 Bi-pap 60 07/23/17 06:00 114 33 121/49 90 Bi-pap 50 07/23/17 05:09 113 30 93 Facial 60 07/23/17 05:00 102 35 122/52 90 Bi-pap 50 07/23/17 04:00 98.3 106 31 132/73 89 Bi-pap 50 07/23/17 04:00 102 07/23/17 04:00 50.0 07/23/17 03:00 102 32 123/59 90 Bi-pap 50 07/23/17 02:38 102 25 92 Facial 60 07/23/17 02:00 104 22 129/73 92 Bi-pap 50 07/23/17 01:25 99 26 94 Bi-pap 60 07/23/17 01:06 60 07/23/17 01:05 105 30 91 Bi-pap 60 07/23/17 01:04 105 30 91 Facial 50 07/23/17 01:00 99 20 141/86 90 Bi-pap 50 07/23/17 00:00 50.0 07/23/17 00:00 93 07/23/17 00:00 98.0 93 34 130/72 90 Bi-pap 50 07/22/17 23:23 87 36 92 Facial 50 07/22/17 23:00 88 32 133/65 93 Bi-pap 50 07/22/17 22:15 124/58 07/22/17 22:00 83 32 124/58 95 Bi-pap 50 07/22/17 21:04 103 118/63 07/22/17 21:00 102 35 124/50 94 Bi-pap 50 07/22/17 20:56 98 32 95 Facial 50 07/22/17 20:03 97.5 92 32 118/63 96 Bi-pap 50 07/22/17 20:00 50.0 07/22/17 20:00 92 07/22/17 19:25 95 28 95 Bi-pap 50 07/22/17 19:25 94 28 95 Bi-pap 50 07/22/17 19:11 50 07/22/17 19:11 50 07/22/17 19:10 90 31 93 50 07/22/17 19:10 90 31 93 Bi-pap 50 07/22/17 19:00 83 24 124/56 96 Bi-pap 50 07/22/17 18:57 90 31 93 Facial 50 07/22/17 18:00 87 26 128/58 96 Bi-pap 50 07/22/17 17:00 50.0 07/22/17 17:00 79 25 107/47 98 Bi-pap 50 07/22/17 16:58 76 28 97 Facial 50 07/22/17 16:00 78 17 16:00 70.0 07/22/17 16:00 97.9 80 26 122/52 96 Bi-pap 70 07/22/17 15:00 76 27 113/52 99 Bi-pap 70 Intake and Output 07/22/17 07/23/17 19:00 07:00 Intake Total 957.140 ml 552.720 ml Output Total 630 ml 1905 ml Balance 327.140 ml -1352.280 ml IV Total 857.140 ml 552.720 ml Tube Feeding 50 ml 0 ml Other 50 ml Output Urine Total 630 ml 1905 ml Laboratory Tests 07/22/17 19:35: Activated Partial Thromboplast Time 73H 07/23/17 04:00: Activated Partial Thromboplast Time 101H, White Blood Count 19.6#H, Red Blood Count 3.20L, Hemoglobin 8.7L, Hematocrit 27.7L, Mean Corpuscular Volume 87, Mean Corpuscular Hemoglobin 27.3, Mean Corpuscular Hemoglobin Concent 31.5L, Red Cell Distribution Width 20.2H, Platelet Count 272, Mean Platelet Volume 9.6 , Neutrophils (%) (Auto) , Lymphocytes (%) (Auto) , Monocytes (%) (Auto) , Eosinophils (%) (Auto) , Basophils (%) (Auto) , Differential Total Cells Counted 100, Neutrophils % (Manual) 91H, Lymphocytes % (Manual) 4L, Monocytes % (Manual) 4, Eosinophils % (Manual) 0, Basophils % (Manual) 0, Band Neutrophils 1 , Platelet Estimate Adequate, Platelet Morphology Normal, Hypochromasia 1+, Anisocytosis 2+, Ovalocytes Occasional, Sodium Level 142, Potassium Level 3.4L, Chloride Level 109H, Carbon Dioxide Level 26, Anion Gap 7, Blood Urea Nitrogen 8 , Creatinine 0.6, Estimat Glomerular Filtration Rate , Glucose Level 143H, Calcium Level 7.9L, Total Bilirubin 0.4, Aspartate Amino Transf (AST/SGOT) 16, Alanine Aminotransferase (ALT/SGPT) 10L, Alkaline Phosphatase 47, Pro-B-Type Natriuretic Peptide 18061G, Total Protein 5.3L, Albumin 1.4L, Globulin 3.9, Albumin/Globulin Ratio 0.4L 07/23/17 11:15: Activated Partial Thromboplast Time 85H 07/23/17 11:45: Arterial Blood pH 7.402, Arterial Blood Partial Pressure CO2 39.8, Arterial Blood Partial Pressure O2 60.8L, Arterial Blood HCO3 24.2, Arterial Blood Oxygen Saturation 89.0L, Arterial Blood Base Excess -0.5, Jamie Test Positive Height (Feet): 5 Height (Inches): 2.00 Weight (Pounds): 142 Objective General: awake, alert, lethargic, on BiPAP Head: normocephalic, without obvious abnormality, atraumatic Eyes: conjunctivae/corneas clear. PERRL, EOM's intact Throat: lips, mucosa, and tongue normal. MMM Neck: supple, symmetrical, trachea midline, and no JVD Lungs: clear to auscultation bilaterally Heart: regular rate and rhythm, S1, S2 normal, no murmur, click, rub or gallop Abdomen: soft, non-tender, non-distended, bowel sounds normal; +PEG c/d/i Extremities: extremities normal, atraumatic, no cyanosis or edema Pulses: 2+ and symmetric Skin: skin color, texture, turgor normal; no rashes or lesions Neurologic: Kilo Manrique M.D. Jul 23, 2017 14:48
[2017-07-23] MEDS ORDERED: Sterile Water Irrig 1000ml IRRIG ONE ×2 (15:53→16:37)
[2017-07-23] MEDS ORDERED: Tubing IV Secondary IV ONE ×2 (15:53→16:37)
[2017-07-23] MEDS: Dyna-Hex 2% Top Sol 2oz TOPIC SCH (19:44)
[2017-07-24] VITALS (25 sets, daily range): BP systolic 105–151; BP diastolic 51–90
[2017-07-24] MEDS: Levalbuterol Inh UD 1.25mg/0.5ml HHN SCH ×4 (01:00→19:42)
[2017-07-24] MEDS: Ipratropium 0.02% Inh Soln 2.5ml UD HHN SCH ×4 (01:00→19:42)
[2017-07-24] MEDS: Pantoprazole 80 MG in NS 250 ML IV SCH ×2 (05:14→15:00)
[2017-07-24 05:43] LABS: HEMATOCRIT 32.5 % (37.0-47.0); HEMOGLOBIN 10.3 G/DL (12.0-16.0); MEAN CORPUSCULAR VOLUME 87 FL (80-99); PLATELET COUNT 409 K/UL (150-450); RED BLOOD COUNT 3.73 M/UL (4.20-5.40); RED CELL DISTRIBUTION WIDTH 20.5 % (11.6-14.8)
[2017-07-24 05:44] LABS: ALANINE AMINOTRANSFERASE 7 U/L (12-78); ALBUMIN 1.7 G/DL (3.4-5.0); ALBUMIN/GLOBULIN RATIO 0.4 (1.0-2.7); ALKALINE PHOSPHATASE 57 U/L (46-116); ANION GAP 6 mmol/L (5-15); ASPARTATE AMINO TRANSFERASE 19 U/L (15-37); BILIRUBIN,TOTAL 0.6 MG/DL (0.2-1.0); BLOOD UREA NITROGEN 13 mg/dL (7-18); CALCIUM 7.3 MG/DL (8.5-10.1); CARBON DIOXIDE 26 MMOL/L (21-32); CHLORIDE 106 MMOL/L (98-107); CREATININE 0.8 MG/DL (0.55-1.30); POTASSIUM 3.6 MMOL/L (3.5-5.1); SODIUM 138 MMOL/L (136-145)
[2017-07-24 06:40] LABS: WHITE BLOOD COUNT 28.7 K/UL (4.8-10.8)
[2017-07-24] MEDS ORDERED: Heparin 5000 units/ml inj IV ONE (07:45)
[2017-07-24] MEDS: Heparin 25,000u/D5W 500ml 500 ML IV SCH (08:04)
[2017-07-24] MEDS: Meropenem 500mg in NS 55ml IVPB SCH ×2 (08:04→19:32)
[2017-07-24] MEDS: Metoprolol Tartrate 12.5mg TAB ORAL SCH ×2 (08:05→20:39)
[2017-07-24] MEDS: Aspirin Baby 81mg NG SCH (08:05)
[2017-07-24] MEDS: Vancomycin 1250mg/D5W 250ml IVPB SCH (08:05)
--- NOTE | 2017-07-24 09:25 | Pulmonolgy Critical Care Note ---
Critical Care - Asmt/Plan Problems: (1) Ventilator dependent Assessment & Plan: Extubated 07/21, placed on BiPAP later the same day for hypoxemia and hypercapnia (2) Pneumonia (3) Elevated troponin (4) Septic shock (5) Demand ischemia of myocardium (6) Transaminitis (7) CVA (cerebral vascular accident) (8) Ischemic cardiomyopathy (9) Alzheimer's dementia (10) CAD s/p PCI (11) diffuse severe gastropathy (12) lives at snf (13) paroxsymal atrial fibrillation (14) Acute on chronic diastolic heart failure (15) NSTEMI (non-ST elevated myocardial infarction) (16) Failure to thrive (17) Functional quadriplegia (18) Generalized weakness (19) S/P percutaneous endoscopic gastrostomy (PEG) tube placement Assessment/Plan: -BiPAP qHS and PRN - will wean to FM/NC this am -Check ABG -Very cautious TF"s while on BiPAP -Atrovent and Xopenex HHN's q6WA and q4 PRN -Abx per ID, repeat CX's sent -CT C/A/P ordered -C diff sent -IV PPI & IV Venofer, monitor for bleeding, F/U GI recs -[facility] per cards -F/U neuro recs -Monitor volumes -->Contineu Lasix 40 IV BID -PICC today, then D/C CVC -Wound care -FC. 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 Critical Care - Objective Last 24 Hour Vital Signs Date Time Temp Pulse Resp B/P (MAP) Pulse Ox O2 Delivery O2 Flow Rate FiO2 07/24/17 08:05 107 144/72 07/24/17 07:23 96 34 100 Full Face 100 07/24/17 07:20 97 30 100 Bi-pap 100 07/24/17 06:00 115 36 134/60 95 Bi-pap 100 07/24/17 05:21 96 34 100 Full Face 100 07/24/17 05:00 99 38 119/69 95 Bi-pap 100 07/24/17 04:00 106 07/24/17 04:00 98.0 106 38 151/69 95 Bi-pap 100 07/24/17 04:00 100 07/24/17 03:30 120 32 98 Facial 100 07/24/17 03:00 129 37 116/78 97 Bi-pap 100 07/24/17 02:00 112 36 117/78 99 Bi-pap 100 07/24/17 01:34 125 07/24/17 01:33 123 07/24/17 01:30 124 36 100 Facial 100 07/24/17 01:00 108 35 137/84 100 Bi-pap 100 07/24/17 00:00 100 07/24/17 00:00 107 07/24/17 00:00 98.4 116 37 148/90 99 Bi-pap 100 07/23/17 23:15 120 40 99 Full Face 100 07/23/17 23:00 111 38 140/109 99 Bi-pap 100 07/23/17 22:00 101 36 133/97 100 Bi-pap 100 07/23/17 21:30 102 34 99 Full Face 100 07/23/17 21:00 109 39 122/64 99 Bi-pap 100 07/23/17 20:50 112/74 07/23/17 20:49 102 112/74 07/23/17 20:00 98.8 101 39 112/74 98 Bi-pap 100 07/23/17 20:00 101 07/23/17 20:00 100 07/23/17 19:18 98 36 95 Full Face 100 07/23/17 19:16 Bi-pap 07/23/17 19:16 Bi-pap 07/23/17 19:12 106 43 96 Bi-pap 100 07/23/17 19:11 104 43 93 Bi-pap 100 07/23/17 19:00 100 07/23/17 19:00 121 43 124/65 98 Bi-pap 100 07/23/17 18:00 125 42 148/87 87 Bi-pap 100 07/23/17 17:00 104 33 140/76 90 Bi-pap 100 07/23/17 16:53 96 37 91 Facial 60 07/23/17 16:00 98 07/23/17 16:00 98.2 98 30 125/64 92 Bi-pap 60 07/23/17 16:00 60.0 07/23/17 15:27 93 38 92 Facial 60 07/23/17 15:00 90 26 112/35 92 Bi-pap 60 07/23/17 14:00 88 30 118/61 92 Bi-pap 60 07/23/17 13:29 91 35 97 Bi-pap 60 07/23/17 13:19 90 30 94 Bi-pap 60 07/23/17 13:04 87 36 94 Bi-pap 60 07/23/17 13:00 89 35 55/50 97 Bi-pap 60 07/23/17 12:54 77 35 96 Facial 60 07/23/17 12:54 80 35 95 Bi-pap 60 07/23/17 12:11 60.0 07/23/17 12:00 98.5 89 28 115/49 98 Bi-pap 60 07/23/17 12:00 80 07/23/17 11:33 77 31 96 Facial 60 07/23/17 11:00 84 36 107/50 94 Bi-pap 60 07/23/17 10:24 96 38 92 Facial 60 07/23/17 10:21 96 38 88 07/23/17 10:00 83 33 120/47 83 Non-Rebreather 100 07/23/17 10:00 75 30 89 Status: obtunded Condition: critical HEENT: atraumatic, normocephalic, other - BiPAP Lungs: rhonchi - scattered anterior Heart: HR/BP stable Abdomen: soft, non-tender, active bowel sounds Extremities: other - trace edema Critical Care - Subjective ROS Limited/Unobtainable: Yes ICU Day: 9 Intubation Day: N/A Interval Events: Difficult to wean off BiPAP, AFVSS x RR 30s, WCt 28 Awake & confused, no cough Condition: critical IV Access: PICC EKG Rhythm: Sinus Rhythm FI02: 100 Vent Support Breath Rate: 16 Vent Support Mode: CPAP Vent Tidal Volume: 500 Sputum Amount: Small PEEP: 5.0 PIP: 14 Tube Feeding Amount: 0 I&O: Intake and Output 07/23/17 07/24/17 19:00 07:00 Intake Total 692.60 ml 500.17 ml Output Total 140 ml 1540 ml Balance 552.60 ml -1039.83 ml IV Total 692.60 ml 500.17 ml Tube Feeding 0 ml 0 ml Output Urine Total 140 ml 1540 ml Stool Total 0 ml # Bowel Movements 1 ET-Tube: 7.5 ET Position: 23 Labs: Laboratory Tests Test 07/23/17 11:15 07/23/17 11:45 07/23/17 18:42 07/23/17 18:45 Activated Partial Thromboplast Time 85 SEC (23-33) H 76 SEC (23-33) H Arterial Blood pH 7.402 (7.350-7.450) 7.313 (7.350-7.450) Arterial Blood Partial Pressure CO2 39.8 mmHg (35.0-45.0) 50.1 mmHg (35.0-45.0) H Arterial Blood Partial Pressure O2 60.8 mmHg (75.0-100.0) L 62.7 mmHg (75.0-100.0) L Arterial Blood HCO3 24.2 mmol/L (22.0-26.0) 24.8 mmol/L (22.0-26.0) Arterial Blood Oxygen Saturation 89.0 % (92.0-98.0) L 88.6 % (92.0-98.0) L Arterial Blood Base Excess -0.5 -1.7 Jamie Test Positive Positive Test 07/24/17 04:15 White Blood Count 28.7 K/UL (4.8-10.8) *H Red Blood Count 3.73 M/UL (4.20-5.40) L Hemoglobin 10.3 G/DL (12.0-16.0) L Hematocrit 32.5 % (37.0-47.0) L Mean Corpuscular Volume 87 FL (80-99) Mean Corpuscular Hemoglobin 27.6 PG (27.0-31.0) Mean Corpuscular Hemoglobin Concent 31.7 G/DL (32.0-36.0) L Red Cell Distribution Width 20.5 % (11.6-14.8) H Platelet Count 409 K/UL (150-450) # Mean Platelet Volume 9.2 FL (6.5-10.1) Neutrophils (%) (Auto) % (45.0-75.0) Lymphocytes (%) (Auto) % (20.0-45.0) Monocytes (%) (Auto) % (1.0-10.0) Eosinophils (%) (Auto) % (0.0-3.0) Basophils (%) (Auto) % (0.0-2.0) Differential Total Cells Counted 100 Neutrophils % (Manual) 91 % (45-75) H Lymphocytes % (Manual) 6 % (20-45) L Monocytes % (Manual) 3 % (1-10) Eosinophils % (Manual) 0 % (0-3) Basophils % (Manual) 0 % (0-2) Band Neutrophils 0 % (0-8) Platelet Estimate Adequate Platelet Morphology Normal Hypochromasia 1+ Anisocytosis 2+ Activated Partial Thromboplast Time 63 SEC (23-33) H Sodium Level 138 MMOL/L (136-145) Potassium Level 3.6 MMOL/L (3.5-5.1) Chloride Level 106 MMOL/L (98-107) Carbon Dioxide Level 26 MMOL/L (21-32) Anion Gap 6 mmol/L (5-15) Blood Urea Nitrogen 13 mg/dL (7-18) Creatinine 0.8 MG/DL (0.55-1.30) Estimat Glomerular Filtration Rate mL/min (>60) Glucose Level 148 MG/DL (74-106) H Calcium Level 7.3 MG/DL (8.5-10.1) L Total Bilirubin 0.6 MG/DL (0.2-1.0) Aspartate Amino Transf (AST/SGOT) 19 U/L (15-37) Alanine Aminotransferase (ALT/SGPT) 7 U/L (12-78) L Alkaline Phosphatase 57 U/L (46-116) Total Protein 6.0 G/DL (6.4-8.2) L Albumin 1.7 G/DL (3.4-5.0) L Globulin 4.3 g/dL Albumin/Globulin Ratio 0.4 (1.0-2.7) L FRANCOIS ZUNIGA M.D. Jul 24, 2017 09:25
[2017-07-24 11:09] LABS: APPEARANCE,URINE CLOUDY; BILIRUBIN, URINE NEGATIVE (NEGATIVE); COLOR,URINE PALE YELLOW; GLUCOSE, URINE (UA) NEGATIVE (NEGATIVE); KETONES,URINE NEGATIVE (NEGATIVE); LEUKOCYTE ESTERASE ,URINE 3+ (NEGATIVE); NITRITE,URINE NEGATIVE (NEGATIVE); PH,URINE 5 (4.5-8.0); PROTEIN,URINE NEGATIVE (NEGATIVE); UROBILINOGEN,URINE NORMAL MG/DL (0.0-1.0)
--- NOTE | 2017-07-24 13:57 | GI Progress Note ---
Assessment/Plan Problems: (1) S/P percutaneous endoscopic gastrostomy (PEG) tube placement ICD Codes: Z93.1 - Gastrostomy status SNOMED: 697786608 (2) Failure to thrive SNOMED: 98966593 (3) Ventilator dependent ICD Codes: Z99.11 - Dependence on respirator [ventilator] status SNOMED: 503961497 (4) NSTEMI (non-ST elevated myocardial infarction) ICD Codes: I21.4 - Non-ST elevation (NSTEMI) myocardial infarction SNOMED: 896056836 (5) Severe sepsis ICD Codes: A41.9 - Sepsis, unspecified organism; R65.20 - Severe sepsis without septic shock SNOMED: 50912983 (6) Elevated troponin ICD Codes: R74.8 - Abnormal levels of other serum enzymes SNOMED: 050179640, 799596674 (7) Anemia ICD Codes: D64.9 - Anemia, unspecified SNOMED: 154138109 (8) Weakness ICD Codes: R53.1 - Weakness SNOMED: 12171760 (9) Transaminitis ICD Codes: R74.0 - Nonspecific elevation of levels of transaminase and lactic acid dehydrogenase [LDH] SNOMED: 141169449 (10) Protein-calorie malnutrition, severe ICD Codes: E43 - Unspecified severe protein-calorie malnutrition SNOMED: 268263477 (11) Dehydration ICD Codes: E86.0 - Dehydration SNOMED: 80404311 (12) Septic shock ICD Codes: A41.9 - Sepsis, unspecified organism; R65.21 - Severe sepsis with septic shock SNOMED: 01713155 Status: not improved, unchanged Status Narrative Discussed with Dr. Sierra. Assessment/Plan Assessment - respiratory failure - dysphagia, s/p prior GJ tube >> now changed to GT - UGIB - no plans for EGD at this time due to NC - NSTEMI - AMS - Anemia - OB stool positive pt extubated, now on BIPAP Recommendations EGD to be scheduled pending cardiac clearance, will consider replacement of GJ tube if necessary. - patient is also on Eliquis which must dc 48-72 hours min prior any GI procedures Gastric Lavage 500 cc r/o UGIB >> POSITIVE, will require EGD when stable. GTFs per RD monitor H&H closely, stable last few days cardiology f/u PPI gtt abx fu labs Subjective Subjective limited Objective Last 24 Hour Vital Signs Date Time Temp Pulse Resp B/P (MAP) Pulse Ox O2 Delivery O2 Flow Rate FiO2 07/24/17 13:30 81 34 100 Full Face 100 07/24/17 13:00 79 32 135/59 99 Bi-pap 80 07/24/17 12:00 79 07/24/17 12:00 80 07/24/17 12:00 98.5 84 33 137/63 100 Bi-pap 80 07/24/17 11:50 90 31 94 Full Face 100 07/24/17 11:00 93 38 129/61 100 Bi-pap 80 07/24/17 10:00 87 32 129/62 100 Bi-pap 80 07/24/17 09:00 96 34 100 Full Face 100 07/24/17 09:00 84 32 122/53 87 Non-Rebreather 15.0 07/24/17 08:05 107 144/72 07/24/17 08:00 103 07/24/17 08:00 108 36 132/51 100 Bi-pap 100 07/24/17 08:00 100 07/24/17 07:23 96 34 100 Full Face 100 07/24/17 07:20 97 30 100 Bi-pap 100 07/24/17 07:00 98.2 97 33 134/60 100 Bi-pap 100 07/24/17 06:00 115 36 134/60 95 Bi-pap 100 07/24/17 05:21 96 34 100 Full Face 100 07/24/17 05:00 99 38 119/69 95 Bi-pap 100 07/24/17 04:00 106 07/24/17 04:00 98.0 106 38 151/69 95 Bi-pap 100 07/24/17 04:00 100 07/24/17 03:30 120 32 98 Facial 100 07/24/17 03:00 129 37 116/78 97 Bi-pap 100 07/24/17 02:00 112 36 117/78 99 Bi-pap 100 07/24/17 01:34 125 07/24/17 01:33 123 07/24/17 01:30 124 36 100 Facial 100 07/24/17 01:00 108 35 137/84 100 Bi-pap 100 07/24/17 00:00 100 07/24/17 00:00 107 07/24/17 00:00 98.4 116 37 148/90 99 Bi-pap 100 07/23/17 23:15 120 40 99 Full Face 100 07/23/17 23:00 111 38 140/109 99 Bi-pap 100 07/23/17 22:00 101 36 133/97 100 Bi-pap 100 07/23/17 21:30 102 34 99 Full Face 100 07/23/17 21:00 109 39 122/64 99 Bi-pap 100 07/23/17 20:50 112/74 07/23/17 20:49 102 112/74 07/23/17 20:00 98.8 101 39 112/74 98 Bi-pap 100 07/23/17 20:00 101 07/23/17 20:00 100 07/23/17 19:18 98 36 95 Full Face 100 07/23/17 19:16 Bi-pap 07/23/17 19:16 Bi-pap 07/23/17 19:12 106 43 96 Bi-pap 100 07/23/17 19:11 104 43 93 Bi-pap 100 07/23/17 19:00 100 07/23/17 19:00 121 43 124/65 98 Bi-pap 100 07/23/17 18:00 125 42 148/87 87 Bi-pap 100 07/23/17 17:00 104 33 140/76 90 Bi-pap 100 07/23/17 16:53 96 37 91 Facial 60 07/23/17 16:00 98 07/23/17 16:00 98.2 98 30 125/64 92 Bi-pap 60 07/23/17 16:00 60.0 07/23/17 15:27 93 38 92 Facial 60 07/23/17 15:00 90 26 112/35 92 Bi-pap 60 07/23/17 14:00 88 30 118/61 92 Bi-pap 60 Intake and Output 07/23/17 07/24/17 19:00 07:00 Intake Total 692.60 ml 500.17 ml Output Total 140 ml 1540 ml Balance 552.60 ml -1039.83 ml IV Total 692.60 ml 500.17 ml Tube Feeding 0 ml 0 ml Output Urine Total 140 ml 1540 ml Stool Total 0 ml # Bowel Movements 1 Laboratory Tests Test 07/23/17 18:42 07/23/17 18:45 07/24/17 04:15 07/24/17 10:00 Arterial Blood pH 7.313 (7.350-7.450) Arterial Blood Partial Pressure CO2 50.1 mmHg (35.0-45.0) H Arterial Blood Partial Pressure O2 62.7 mmHg (75.0-100.0) L Arterial Blood HCO3 24.8 mmol/L (22.0-26.0) Arterial Blood Oxygen Saturation 88.6 % (92.0-98.0) L Arterial Blood Base Excess -1.7 Jamie Test Positive Activated Partial Thromboplast Time 76 SEC (23-33) H 63 SEC (23-33) H White Blood Count 28.7 K/UL (4.8-10.8) *H Red Blood Count 3.73 M/UL (4.20-5.40) L Hemoglobin 10.3 G/DL (12.0-16.0) L Hematocrit 32.5 % (37.0-47.0) L Mean Corpuscular Volume 87 FL (80-99) Mean Corpuscular Hemoglobin 27.6 PG (27.0-31.0) Mean Corpuscular Hemoglobin Concent 31.7 G/DL (32.0-36.0) L Red Cell Distribution Width 20.5 % (11.6-14.8) H Platelet Count 409 K/UL (150-450) # Mean Platelet Volume 9.2 FL (6.5-10.1) Neutrophils (%) (Auto) % (45.0-75.0) Lymphocytes (%) (Auto) % (20.0-45.0) Monocytes (%) (Auto) % (1.0-10.0) Eosinophils (%) (Auto) % (0.0-3.0) Basophils (%) (Auto) % (0.0-2.0) Differential Total Cells Counted 100 Neutrophils % (Manual) 91 % (45-75) H Lymphocytes % (Manual) 6 % (20-45) L Monocytes % (Manual) 3 % (1-10) Eosinophils % (Manual) 0 % (0-3) Basophils % (Manual) 0 % (0-2) Band Neutrophils 0 % (0-8) Platelet Estimate Adequate Platelet Morphology Normal Hypochromasia 1+ Anisocytosis 2+ Sodium Level 138 MMOL/L (136-145) Potassium Level 3.6 MMOL/L (3.5-5.1) Chloride Level 106 MMOL/L (98-107) Carbon Dioxide Level 26 MMOL/L (21-32) Anion Gap 6 mmol/L (5-15) Blood Urea Nitrogen 13 mg/dL (7-18) Creatinine 0.8 MG/DL (0.55-1.30) Estimat Glomerular Filtration Rate mL/min (>60) Glucose Level 148 MG/DL (74-106) H Calcium Level 7.3 MG/DL (8.5-10.1) L Total Bilirubin 0.6 MG/DL (0.2-1.0) Aspartate Amino Transf (AST/SGOT) 19 U/L (15-37) Alanine Aminotransferase (ALT/SGPT) 7 U/L (12-78) L Alkaline Phosphatase 57 U/L (46-116) Total Protein 6.0 G/DL (6.4-8.2) L Albumin 1.7 G/DL (3.4-5.0) L Globulin 4.3 g/dL Albumin/Globulin Ratio 0.4 (1.0-2.7) L Urine Color Pale yellow Urine Appearance Cloudy Urine pH 5 (4.5-8.0) Urine Specific [place] 1.010 (1.005-1.035) Urine Protein Negative (NEGATIVE) Urine Glucose (UA) Negative (NEGATIVE) Urine Ketones Negative (NEGATIVE) Urine Occult Blood 2+ (NEGATIVE) H Urine Nitrite Negative (NEGATIVE) Urine Bilirubin Negative (NEGATIVE) Urine Urobilinogen Normal MG/DL (0.0-1.0) Urine Leukocyte Esterase 3+ (NEGATIVE) H Urine RBC 2-4 /HPF (0 - 2) H Urine WBC 15-20 /HPF (0 - 2) H Urine Squamous Epithelial Cells Few /LPF (NONE/OCC) Urine Bacteria Few /HPF (NONE) Urine Yeast Few /HPF (NONE) H Test 07/24/17 10:25 Arterial Blood pH 7.402 (7.350-7.450) Arterial Blood Partial Pressure CO2 41.1 mmHg (35.0-45.0) Arterial Blood Partial Pressure O2 74.4 mmHg (75.0-100.0) L Arterial Blood HCO3 25.0 mmol/L (22.0-26.0) Arterial Blood Oxygen Saturation 93.5 % (92.0-98.0) Arterial Blood Base Excess 0.2 Jamie Test Positive Height (Feet): 5 Height (Inches): 2.00 Weight (Pounds): 141 General Appearance: lethargic, mild distress Cardiovascular: normal rate Respiratory/Chest: normal breath sounds, no respiratory distress, other - BIPAP Abdominal Exam: GT site - c/d/i Extremities: non-tender [place] Colon N.P. Jul 24, 2017 13:57
--- NOTE | 2017-07-24 15:20 | General Progress Note ---
Assessment/Plan Problem List: (1) Acute respiratory failure with hypoxia and hypercapnia ICD Codes: J96.01 - Acute respiratory failure with hypoxia; J96.02 - Acute respiratory failure with hypercapnia SNOMED: 63238111, 80016044, 065838384 (2) Severe sepsis ICD Codes: A41.9 - Sepsis, unspecified organism; R65.20 - Severe sepsis without septic shock SNOMED: 48330978 (3) HCAP vs Aspiration pneumonia (4) UTI (urinary tract infection) ICD Codes: N39.0 - Urinary tract infection, site not specified SNOMED: 94312895 (5) Lactic acid acidosis ICD Codes: E87.2 - Acidosis SNOMED: 09822467 (6) NSTEMI (non-ST elevated myocardial infarction) ICD Codes: I21.4 - Non-ST elevation (NSTEMI) myocardial infarction SNOMED: 704065294 (7) Acute on chronic anemia (8) Hyponatremia ICD Codes: E87.1 - Hypo-osmolality and hyponatremia SNOMED: 81848389 (9) paroxsymal atrial fibrillation (10) CAD s/p PCI (11) Ischemic cardiomyopathy ICD Codes: I25.5 - Ischemic cardiomyopathy SNOMED: 593522212 (12) CVA (cerebral vascular accident) ICD Codes: I63.9 - Cerebral infarction, unspecified SNOMED: 977435979 (13) Alzheimer's dementia ICD Codes: G30.9 - Alzheimer's disease, unspecified SNOMED: 30949342 Status: stable Assessment/Plan Continue in ICU Pulm, cardiology, ID, GI consulted, appreciate rec's s/p extubation on 07/21/17 Cont BiPAP per pulm and wean as tolerated Lasix 40mg IV BID WBC uptrending to 28K today--repeat FFWU sent, check C. diff, check CT c/a/p Cont Vanco, Meropenem per ID; started flagyl and diflucan F/u cultures Neurology consulted given new onset slurred speech. CT head negative. F/u EEG Trend CBC, BMP, lactate Trend trop/EKG --> trop downtrending F/u TTE --> 45% EF with mild LVDD Cont heparin gtt per cardiology (Eliquis on hold) s/p 1 unit pRBC transfusion 07/17. Gastric lavage on 07/17 showed e/o bleeding but currently no active signs of bleeding Patient will eventually need EGD/colonoscopy to assess for GIB given acute drop in hemoglobin and positive FOBT. However, patient is unstable at the moment given NSTEMI/elevated trops. Awaiting cardiac clearance Continue PPI gtt Continue IV venofer Cont G-tube feedings per GI Supportive care DVT Prophylaxis: SCD, heparin gtt Code Status: Full per discussion w/ pt's DPOA/daughter Hospital Classification Declaration: Based on this initial evaluation, and depending on the patient's clinical course, I anticipate that this patient will require hospitalization for 2-3 days for acute respiratory faiure, severe sepsis and close respiratory/hemodynamic monitoring. Disposition: Once the patient is stable to leave the hospital, I anticipate the patient will likely be discharged to the following environment: back to SNF At the time of my involvement, the patient's condition was critical with high potential for and/or physiologic deterioration secondary to acute respiratory failure, severe sepsis as delineated in the note above. On the above date of service, I spent a total of 36 minutes in the ICU evaluating, managing, and providing critical care services to this patient, including time spent documenting these activities, counseling patient/family, and coordinating care. Critical care services performed include: Telemetry Review Hemodynamic measurement interpretation Laboratory data review and interpretation BiPAP setting review, management, and adjustment Discussion of care plans with patient, family, and/or surrogate decision makers Discussion of patient's care with primary medical team, surgical team, and/or consulting service Decision to obtain further radiologic evaluation, after consideration of risk/ benefit ratio Review of most recent microbiology results with assessment and modification of antimicrobial coverage Discussion of patient's code status and further advancement towards the ultimate goals of care Plan outlined above discussed with patient/family, INDUSTRIAL ELECTRICIAN, ICU team, and involved physicians/consultants. Time of note may not reflect time of encounter. Subjective Date patient seen: Jul 24, 2017 Time patient seen: 15:20 ROS Limited/Unobtainable: Yes Allergies: Coded Allergies: No Known Allergies (Unverified , 05/25/13) Subjective No acute o/n events Extubated on 07/21 but has been BiPAP dependent since Tria on full face O2 mask but pt became hypoxic Cont on BiPAP Awake, somewhat agitated Called pt's daughter but no response and unable to leave [facility] voicemail not set up Objective Last 24 Hour Vital Signs Date Time Temp Pulse Resp B/P (MAP) Pulse Ox O2 Delivery O2 Flow Rate FiO2 07/24/17 15:00 96 35 127/53 98 Bi-pap 80 07/24/17 14:00 84 31 131/58 100 Bi-pap 80 07/24/17 13:30 81 34 100 Full Face 100 07/24/17 13:00 79 32 135/59 99 Bi-pap 80 07/24/17 12:00 79 07/24/17 12:00 80 07/24/17 12:00 98.5 84 33 137/63 100 Bi-pap 80 07/24/17 11:50 90 31 94 Full Face 100 07/24/17 11:00 93 38 129/61 100 Bi-pap 80 07/24/17 10:00 87 32 129/62 100 Bi-pap 80 07/24/17 09:00 96 34 100 Full Face 100 07/24/17 09:00 84 32 122/53 87 Non-Rebreather 15.0 07/24/17 08:05 107 144/72 07/24/17 08:00 103 07/24/17 08:00 108 36 132/51 100 Bi-pap 100 07/24/17 08:00 100 07/24/17 07:23 96 34 100 Full Face 100 07/24/17 07:20 97 30 100 Bi-pap 100 07/24/17 07:00 98.2 97 33 134/60 100 Bi-pap 100 07/24/17 06:00 115 36 134/60 95 Bi-pap 100 07/24/17 05:21 96 34 100 Full Face 100 07/24/17 05:00 99 38 119/69 95 Bi-pap 100 07/24/17 04:00 106 07/24/17 04:00 98.0 106 38 151/69 95 Bi-pap 100 07/24/17 04:00 100 07/24/17 03:30 120 32 98 Facial 100 07/24/17 03:00 129 37 116/78 97 Bi-pap 100 07/24/17 02:00 112 36 117/78 99 Bi-pap 100 07/24/17 01:34 125 07/24/17 01:33 123 07/24/17 01:30 124 36 100 Facial 100 07/24/17 01:00 108 35 137/84 100 Bi-pap 100 07/24/17 00:00 100 07/24/17 00:00 107 07/24/17 00:00 98.4 116 37 148/90 99 Bi-pap 100 07/23/17 23:15 120 40 99 Full Face 100 07/23/17 23:00 111 38 140/109 99 Bi-pap 100 07/23/17 22:00 101 36 133/97 100 Bi-pap 100 07/23/17 21:30 102 34 99 Full Face 100 07/23/17 21:00 109 39 122/64 99 Bi-pap 100 07/23/17 20:50 112/74 07/23/17 20:49 102 112/74 07/23/17 20:00 98.8 101 39 112/74 98 Bi-pap 100 07/23/17 20:00 101 07/23/17 20:00 100 07/23/17 19:18 98 36 95 Full Face 100 07/23/17 19:16 Bi-pap 07/23/17 19:16 Bi-pap 07/23/17 19:12 106 43 96 Bi-pap 100 07/23/17 19:11 104 43 93 Bi-pap 100 07/23/17 19:00 100 07/23/17 19:00 121 43 124/65 98 Bi-pap 100 07/23/17 18:00 125 42 148/87 87 Bi-pap 100 07/23/17 17:00 104 33 140/76 90 Bi-pap 100 07/23/17 16:53 96 37 91 Facial 60 07/23/17 16:00 98 07/23/17 16:00 98.2 98 30 125/64 92 Bi-pap 60 07/23/17 16:00 60.0 07/23/17 15:27 93 38 92 Facial 60 Intake and Output 07/23/17 07/24/17 19:00 07:00 Intake Total 692.60 ml 500.17 ml Output Total 140 ml 1540 ml Balance 552.60 ml -1039.83 ml IV Total 692.60 ml 500.17 ml Tube Feeding 0 ml 0 ml Output Urine Total 140 ml 1540 ml Stool Total 0 ml # Bowel Movements 1 Laboratory Tests 07/23/17 18:42: Arterial Blood pH 7.313L, Arterial Blood Partial Pressure CO2 50.1H, Arterial Blood Partial Pressure O2 62.7L, Arterial Blood HCO3 24.8, Arterial Blood Oxygen Saturation 88.6L, Arterial Blood Base Excess -1.7, Jamie Test Positive 07/23/17 18:45: Activated Partial Thromboplast Time 76H 07/24/17 04:15: Activated Partial Thromboplast Time 63H, White Blood Count 28.7*H, Red Blood Count 3.73L, Hemoglobin 10.3L, Hematocrit 32.5L, Mean Corpuscular Volume 87, Mean Corpuscular Hemoglobin 27.6, Mean Corpuscular Hemoglobin Concent 31.7L, Red Cell Distribution Width 20.5H, Platelet Count 409#, Mean Platelet Volume 9.2 , Neutrophils (%) (Auto) , Lymphocytes (%) (Auto) , Monocytes (%) (Auto) , Eosinophils (%) (Auto) , Basophils (%) (Auto) , Differential Total Cells Counted 100, Neutrophils % (Manual) 91H, Lymphocytes % (Manual) 6L, Monocytes % (Manual) 3, Eosinophils % (Manual) 0, Basophils % (Manual) 0, Band Neutrophils 0 , Platelet Estimate Adequate, Platelet Morphology Normal, Hypochromasia 1+, Anisocytosis 2+, Sodium Level 138, Potassium Level 3.6, Chloride Level 106, Carbon Dioxide Level 26, Anion Gap 6, Blood Urea Nitrogen 13, Creatinine 0.8, Estimat Glomerular Filtration Rate , Glucose Level 148H, Calcium Level 7.3L, Total Bilirubin 0.6, Aspartate Amino Transf (AST/SGOT) 19, Alanine Aminotransferase (ALT/SGPT) 7L, Alkaline Phosphatase 57, Total Protein 6.0L, Albumin 1.7L, Globulin 4.3, Albumin/Globulin Ratio 0.4L 07/24/17 10:00: Urine Color Pale yellow, Urine Appearance Cloudy, Urine pH 5, Urine Specific [place] 1.010, Urine Protein Negative, Urine Glucose (UA) Negative, Urine Ketones Negative, Urine Occult Blood 2+H, Urine Nitrite Negative, Urine Bilirubin Negative, Urine Urobilinogen Normal, Urine Leukocyte Esterase 3+H, Urine RBC 2-4H, Urine WBC 15-20H, Urine Squamous Epithelial Cells Few, Urine Bacteria Few, Urine Yeast FewH 07/24/17 10:25: Arterial Blood pH 7.402, Arterial Blood Partial Pressure CO2 41.1, Arterial Blood Partial Pressure O2 74.4L, Arterial Blood HCO3 25.0, Arterial Blood Oxygen Saturation 93.5, Arterial Blood Base Excess 0.2, Jamie Test Positive 07/24/17 15:00: Activated Partial Thromboplast Time [Pending] Height (Feet): 5 Height (Inches): 2.00 Weight (Pounds): 141 Objective General: awake, alert, lethargic, on BiPAP Head: normocephalic, without obvious abnormality, atraumatic Eyes: conjunctivae/corneas clear. PERRL, EOM's intact Throat: lips, mucosa, and tongue normal. MMM Neck: supple, symmetrical, trachea midline, and no JVD Lungs: clear to auscultation bilaterally Heart: regular rate and rhythm, S1, S2 normal, no murmur, click, rub or gallop Abdomen: soft, non-tender, non-distended, bowel sounds normal; +PEG c/d/i Extremities: extremities normal, atraumatic, no cyanosis or edema Pulses: 2+ and symmetric Skin: skin color, texture, turgor normal; no rashes or lesions Neurologic: Kilo Manrique M.D. Jul 24, 2017 15:20
[2017-07-24] MEDS ORDERED: Heparin 25,000u/D5W 500ml 500 ML IV SCH (16:15)
--- NOTE | 2017-07-24 16:16 | Infectious Diseases Prog Note ---
Assessment/Plan Assessment/Plan ASSESSMENT AND PLAN: 1. e.coli uti, mrsa uti, klebsiella/e.coli/strep g-tube infection, sepsis, legionella negative, respiratory failure/vent, extubated, leukocytosis worse, ? c.diff., ? fungemia, ? abdominal/pelvic abscess - reculture, check ct, check c.diff. - vancomycin and meropenem, add flagyl and diflucan - leukocytosis and fevers better - check labs and chest x-ray - icu and supportive care - communicated with Dr. Boateng 2. The patient has severe anemia. 3. Respiratory failure, on ventilator. 4. Dysphagia, on gastrostomy tube. 5. Skin care protocol. Wounds were reviewed. They do not look acutely infected. 6. Hypertension. 7. Cardiomyopathy. 8. CVA. 9. Coronary artery disease. 10. Percutaneous coronary intervention of the left anterior descending. 11. Atrial fibrillation. 12. Alzheimer's. 13. Dementia. 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 15. Blood pressure treatment for hypertension per primary. 16. Allergies are negative. 17. Family number is noncontributory. 18. Social history is negative. 19. MAR was noted. 20. Case was discussed with RN. 21. Continue treatment per primary consultants. 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, vre colonization and isolation Subjective Constitutional: Reports: fatigue, other - on bipap, alert/responsive , Denies: fever HEENT: Reports: congestion Respiratory: Reports: shortness of breath Cardiovascular: Denies: chest pain Gastrointestinal/Abdominal: Denies: nausea, vomiting, diarrhea Genitourinary: Reports: other - + blake Neurologic: Denies: headache Psychiatric: Denies: no symptoms Skin: Denies: rash Hematologic: Denies: bleeding Musculoskeletal: Denies: pain Allergies: Coded Allergies: No Known Allergies (Unverified , 05/25/13) Objective Vital Signs Last 24 Hour Vital Signs Date Time Temp Pulse Resp B/P (MAP) Pulse Ox O2 Delivery O2 Flow Rate FiO2 07/24/17 15:00 96 35 127/53 98 Bi-pap 80 07/24/17 14:00 84 31 131/58 100 Bi-pap 80 07/24/17 13:30 81 34 100 Full Face 100 07/24/17 13:00 79 32 135/59 99 Bi-pap 80 07/24/17 12:00 79 07/24/17 12:00 80 07/24/17 12:00 98.5 84 33 137/63 100 Bi-pap 80 07/24/17 11:50 90 31 94 Full Face 100 07/24/17 11:00 93 38 129/61 100 Bi-pap 80 07/24/17 10:00 87 32 129/62 100 Bi-pap 80 07/24/17 09:00 96 34 100 Full Face 100 07/24/17 09:00 84 32 122/53 87 Non-Rebreather 15.0 07/24/17 08:05 107 144/72 07/24/17 08:00 103 07/24/17 08:00 108 36 132/51 100 Bi-pap 100 07/24/17 08:00 100 07/24/17 07:23 96 34 100 Full Face 100 07/24/17 07:20 97 30 100 Bi-pap 100 07/24/17 07:00 98.2 97 33 134/60 100 Bi-pap 100 07/24/17 06:00 115 36 134/60 95 Bi-pap 100 07/24/17 05:21 96 34 100 Full Face 100 07/24/17 05:00 99 38 119/69 95 Bi-pap 100 07/24/17 04:00 106 07/24/17 04:00 98.0 106 38 151/69 95 Bi-pap 100 07/24/17 04:00 100 07/24/17 03:30 120 32 98 Facial 100 07/24/17 03:00 129 37 116/78 97 Bi-pap 100 07/24/17 02:00 112 36 117/78 99 Bi-pap 100 07/24/17 01:34 125 07/24/17 01:33 123 07/24/17 01:30 124 36 100 Facial 100 07/24/17 01:00 108 35 137/84 100 Bi-pap 100 07/24/17 00:00 100 07/24/17 00:00 107 07/24/17 00:00 98.4 116 37 148/90 99 Bi-pap 100 07/23/17 23:15 120 40 99 Full Face 100 07/23/17 23:00 111 38 140/109 99 Bi-pap 100 07/23/17 22:00 101 36 133/97 100 Bi-pap 100 07/23/17 21:30 102 34 99 Full Face 100 07/23/17 21:00 109 39 122/64 99 Bi-pap 100 07/23/17 20:50 112/74 07/23/17 20:49 102 112/74 07/23/17 20:00 98.8 101 39 112/74 98 Bi-pap 100 07/23/17 20:00 101 07/23/17 20:00 100 07/23/17 19:18 98 36 95 Full Face 100 07/23/17 19:16 Bi-pap 07/23/17 19:16 Bi-pap 07/23/17 19:12 106 43 96 Bi-pap 100 07/23/17 19:11 104 43 93 Bi-pap 100 07/23/17 19:00 100 07/23/17 19:00 121 43 124/65 98 Bi-pap 100 07/23/17 18:00 125 42 148/87 87 Bi-pap 100 07/23/17 17:00 104 33 140/76 90 Bi-pap 100 07/23/17 16:53 96 37 91 Facial 60 Height (Feet): 5 Height (Inches): 2.00 Weight (Pounds): 141 General Appearance: no acute distress HEENT: normocephalic, atraumatic, anicteric, mucous membranes moist, EOMI, pharynx normal, supple, no JVD Respiratory/Chest: respiratory distress, crackles/rales, rhonchi - bilaterally , other - + bipap Cardiovascular: normal rate, regular rhythm, no gallop/murmur, no JVD Abdomen: normal bowel sounds, soft, non tender, no organomegaly, non distended Genitourinary: other - + blake - urine slt cloudy Extremities: no cyanosis Skin: no rash Neurologic/Psychiatric: computer drafter II-XII grossly normal, alert, responsive Lymphatic: no neck adenopathy Musculoskeletal: no effusion Objective Chest x-ray - 07/20 - Comparison: 07/19/2017 A single view chest radiograph was obtained. Findings: Mild interstitial edema suspected. Heart size is stable. Endotracheal tube is stable. IMPRESSION: CHF. No change previous imaging noted 07/22 - chest x-ray - Impression: Worsening left-sided pleural effusion and parenchymal consolidation. Unchanged right-sided parenchymal consolidation Apparent decrease in right-sided pleural fluid, over one day 07/23- chest x-ray - Impression: Possible slight improvement of previously demonstrated large left pleural effusion. Possible slight worsening of previously demonstrated small right pleural effusion Unchanged bilateral diffuse interstitial and alveolar infiltrates versus edema Microbiology Date/Time Source Procedure Growth Status 07/22/17 01:10 Sputum Induced Gram Stain - Final Resulted 07/22/17 01:10 Sputum Induced Sputum Culture - Preliminary NO GROWTH AFTER 24 HOURS Resulted Microbiology Date/Time Source Procedure Growth Status 07/16/17 19:00 Blood Blood Culture - Final NO GROWTH AFTER 5 DAYS Complete 07/17/17 01:20 Wound Gram Stain - Final Complete 07/17/17 01:20 Wound Culture - Final Klebsiella Pneumoniae Escherichia Coli Enterococcus Faecalis Complete 07/22/17 01:10 Sputum Induced Gram Stain - Final Resulted 07/22/17 01:10 Sputum Induced Sputum Culture - Preliminary NO GROWTH AFTER 24 HOURS Resulted 07/17/17 08:00 Stool Clostridium difficile Toxin Assay - Final Complete 07/16/17 19:28 Urine,Clean Catch Urine Culture - Final Escherichia Coli Staphylococcus Aureus - Mrsa Complete 07/16/17 19:30 Rectum VRE Culture - Final Enterococcus Faecalis - Vre Complete Laboratory Tests Test 07/23/17 18:42 07/23/17 18:45 07/24/17 04:15 07/24/17 10:00 Arterial Blood pH 7.313 (7.350-7.450) Arterial Blood Partial Pressure CO2 50.1 mmHg (35.0-45.0) H Arterial Blood Partial Pressure O2 62.7 mmHg (75.0-100.0) L Arterial Blood HCO3 24.8 mmol/L (22.0-26.0) Arterial Blood Oxygen Saturation 88.6 % (92.0-98.0) L Arterial Blood Base Excess -1.7 Jamie Test Positive Activated Partial Thromboplast Time 76 SEC (23-33) H 63 SEC (23-33) H White Blood Count 28.7 K/UL (4.8-10.8) *H Red Blood Count 3.73 M/UL (4.20-5.40) L Hemoglobin 10.3 G/DL (12.0-16.0) L Hematocrit 32.5 % (37.0-47.0) L Mean Corpuscular Volume 87 FL (80-99) Mean Corpuscular Hemoglobin 27.6 PG (27.0-31.0) Mean Corpuscular Hemoglobin Concent 31.7 G/DL (32.0-36.0) L Red Cell Distribution Width 20.5 % (11.6-14.8) H Platelet Count 409 K/UL (150-450) # Mean Platelet Volume 9.2 FL (6.5-10.1) Neutrophils (%) (Auto) % (45.0-75.0) Lymphocytes (%) (Auto) % (20.0-45.0) Monocytes (%) (Auto) % (1.0-10.0) Eosinophils (%) (Auto) % (0.0-3.0) Basophils (%) (Auto) % (0.0-2.0) Differential Total Cells Counted 100 Neutrophils % (Manual) 91 % (45-75) H Lymphocytes % (Manual) 6 % (20-45) L Monocytes % (Manual) 3 % (1-10) Eosinophils % (Manual) 0 % (0-3) Basophils % (Manual) 0 % (0-2) Band Neutrophils 0 % (0-8) Platelet Estimate Adequate Platelet Morphology Normal Hypochromasia 1+ Anisocytosis 2+ Sodium Level 138 MMOL/L (136-145) Potassium Level 3.6 MMOL/L (3.5-5.1) Chloride Level 106 MMOL/L (98-107) Carbon Dioxide Level 26 MMOL/L (21-32) Anion Gap 6 mmol/L (5-15) Blood Urea Nitrogen 13 mg/dL (7-18) Creatinine 0.8 MG/DL (0.55-1.30) Estimat Glomerular Filtration Rate mL/min (>60) Glucose Level 148 MG/DL (74-106) H Calcium Level 7.3 MG/DL (8.5-10.1) L Total Bilirubin 0.6 MG/DL (0.2-1.0) Aspartate Amino Transf (AST/SGOT) 19 U/L (15-37) Alanine Aminotransferase (ALT/SGPT) 7 U/L (12-78) L Alkaline Phosphatase 57 U/L (46-116) Total Protein 6.0 G/DL (6.4-8.2) L Albumin 1.7 G/DL (3.4-5.0) L Globulin 4.3 g/dL Albumin/Globulin Ratio 0.4 (1.0-2.7) L Urine Color Pale yellow Urine Appearance Cloudy Urine pH 5 (4.5-8.0) Urine Specific [place] 1.010 (1.005-1.035) Urine Protein Negative (NEGATIVE) Urine Glucose (UA) Negative (NEGATIVE) Urine Ketones Negative (NEGATIVE) Urine Occult Blood 2+ (NEGATIVE) H Urine Nitrite Negative (NEGATIVE) Urine Bilirubin Negative (NEGATIVE) Urine Urobilinogen Normal MG/DL (0.0-1.0) Urine Leukocyte Esterase 3+ (NEGATIVE) H Urine RBC 2-4 /HPF (0 - 2) H Urine WBC 15-20 /HPF (0 - 2) H Urine Squamous Epithelial Cells Few /LPF (NONE/OCC) Urine Bacteria Few /HPF (NONE) Urine Yeast Few /HPF (NONE) H Test 07/24/17 10:25 07/24/17 15:00 Arterial Blood pH 7.402 (7.350-7.450) Arterial Blood Partial Pressure CO2 41.1 mmHg (35.0-45.0) Arterial Blood Partial Pressure O2 74.4 mmHg (75.0-100.0) L Arterial Blood HCO3 25.0 mmol/L (22.0-26.0) Arterial Blood Oxygen Saturation 93.5 % (92.0-98.0) Arterial Blood Base Excess 0.2 Jamie Test Positive Activated Partial Thromboplast Time 115 SEC (23-33) H Current Medications Medications (Trade) Dose Ordered Sig/Analia Route PRN Reason Start Time Stop Time Status Last Admin Dose Admin Acetaminophen (Tylenol) 650 mg Q4H PRN ORAL fever 07/16/17 22:15 08/15/17 22:14 07/17/17 08:06 Aspirin (ASA) 81 mg DAILY NG 07/19/17 09:00 08/18/17 08:59 07/24/17 08:05 Atorvastatin Calcium (Lipitor) 10 mg BEDTIME ORAL 07/17/17 21:00 08/16/17 20:59 07/23/17 20:49 Chlorhexidine Gluconate (Joana-Hex 2%) 1 applic DAILY@1999 TOPIC 07/23/17 20:00 08/22/17 19:59 07/23/17 19:44 Furosemide (Lasix) 40 mg EVERY 12 HOURS IV 07/23/17 21:00 08/22/17 20:59 07/24/17 08:05 Heparin Sodium/ Dextrose 500 ml @ 14.189 mls/ hr adjust per protocol IV 07/24/17 16:15 08/23/17 16:14 Heparin Sodium/ Sodium Chloride (Heparin 2000 units/Ns 1000ml premix) 2,000 unit ONCE PRN INJ PICC PLACEMENT 07/23/17 09:45 07/24/17 23:59 Ipratropium [place] (Atrovent) 500 mcg Q6HRT N 07/21/17 19:00 07/26/17 18:59 07/24/17 13:00 Levalbuterol HCl (Xopenex) 0.63 mg Q6HRT N 07/22/17 13:00 07/27/17 12:59 07/24/17 13:00 Lidocaine HCl (Xylocaine 1% 30ml) 30 ml ONCE PRN INJ PICC PLACEMENT 07/23/17 09:45 07/24/17 23:59 Meropenem 500 mg/ Sodium Chloride 55 ml @ 110 mls/hr Q12HR@0800,2000 IVPB 07/22/17 20:00 07/27/17 19:59 07/24/17 08:04 Metoprolol Tartrate (Lopressor) 12.5 mg Q12HR ORAL 07/17/17 21:00 08/16/17 20:59 07/24/17 08:05 Morphine Sulfate (Morphine Sulfate) 2 mg Q4H PRN IVP PAIN 4-10 07/21/17 14:45 07/28/17 14:44 07/21/17 15:01 Norepinephrine Bitartrate 4 mg/ Dextrose 254 ml @ 0 mls/hr Q24H IV 07/16/17 22:15 08/15/17 22:14 Ondansetron HCl (Zofran) 4 mg Q6H PRN IVP Nausea & Vomiting 07/16/17 22:15 08/15/17 22:14 Pantoprazole 80 mg/Sodium Chloride 250 ml @ 25 mls/hr Q10H IV 07/21/17 16:00 08/20/17 15:59 07/24/17 15:00 Polyethylene Glycol (Miralax) 17 gm DAILYPRN PRN ORAL Constipation 07/16/17 22:15 08/15/17 22:14 Vancomycin HCl (Vanco rx to dose) 1 ea DAILY PRN MISC per protocol 07/17/17 00:45 08/16/17 00:44 Vancomycin HCl/ Dextrose 250 ml @ 166.667 mls/hr Q24H IVPB 07/22/17 09:00 07/27/17 08:59 07/24/17 08:05 MIHAELA TUBBS Jul 24, 2017 16:16
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
--- NOTE | 2017-07-24 17:12 | Neurology Progress Note ---
Interim History Interim History Interim History Ms. Loving continues to be encephalopathic. She continues to be on BiPAP Her cerebration is slow. She is disoriented. She is generally weak. She is still unable to cooperate for a detailed neurologic examination. Review of Systems Neuro Review of Systems Unable to obtain. Objective Physical Exam Last Vital Signs Date Time Temp Pulse Resp B/P (MAP) Pulse Ox O2 Delivery O2 Flow Rate FiO2 07/24/17 16:00 80 07/24/17 15:30 81 34 100 Full Face 07/24/17 15:00 127/53 07/24/17 12:00 98.5 07/24/17 09:00 15.0 Laboratory Tests Test 07/23/17 18:42 07/23/17 18:45 07/24/17 04:15 07/24/17 10:00 Arterial Blood pH 7.313 (7.350-7.450) Arterial Blood Partial Pressure CO2 50.1 mmHg (35.0-45.0) H Arterial Blood Partial Pressure O2 62.7 mmHg (75.0-100.0) L Arterial Blood HCO3 24.8 mmol/L (22.0-26.0) Arterial Blood Oxygen Saturation 88.6 % (92.0-98.0) L Arterial Blood Base Excess -1.7 Jamie Test Positive Activated Partial Thromboplast Time 76 SEC (23-33) H 63 SEC (23-33) H White Blood Count 28.7 K/UL (4.8-10.8) *H Red Blood Count 3.73 M/UL (4.20-5.40) L Hemoglobin 10.3 G/DL (12.0-16.0) L Hematocrit 32.5 % (37.0-47.0) L Mean Corpuscular Volume 87 FL (80-99) Mean Corpuscular Hemoglobin 27.6 PG (27.0-31.0) Mean Corpuscular Hemoglobin Concent 31.7 G/DL (32.0-36.0) L Red Cell Distribution Width 20.5 % (11.6-14.8) H Platelet Count 409 K/UL (150-450) # Mean Platelet Volume 9.2 FL (6.5-10.1) Neutrophils (%) (Auto) % (45.0-75.0) Lymphocytes (%) (Auto) % (20.0-45.0) Monocytes (%) (Auto) % (1.0-10.0) Eosinophils (%) (Auto) % (0.0-3.0) Basophils (%) (Auto) % (0.0-2.0) Differential Total Cells Counted 100 Neutrophils % (Manual) 91 % (45-75) H Lymphocytes % (Manual) 6 % (20-45) L Monocytes % (Manual) 3 % (1-10) Eosinophils % (Manual) 0 % (0-3) Basophils % (Manual) 0 % (0-2) Band Neutrophils 0 % (0-8) Platelet Estimate Adequate Platelet Morphology Normal Hypochromasia 1+ Anisocytosis 2+ Sodium Level 138 MMOL/L (136-145) Potassium Level 3.6 MMOL/L (3.5-5.1) Chloride Level 106 MMOL/L (98-107) Carbon Dioxide Level 26 MMOL/L (21-32) Anion Gap 6 mmol/L (5-15) Blood Urea Nitrogen 13 mg/dL (7-18) Creatinine 0.8 MG/DL (0.55-1.30) Estimat Glomerular Filtration Rate mL/min (>60) Glucose Level 148 MG/DL (74-106) H Calcium Level 7.3 MG/DL (8.5-10.1) L Total Bilirubin 0.6 MG/DL (0.2-1.0) Aspartate Amino Transf (AST/SGOT) 19 U/L (15-37) Alanine Aminotransferase (ALT/SGPT) 7 U/L (12-78) L Alkaline Phosphatase 57 U/L (46-116) Total Protein 6.0 G/DL (6.4-8.2) L Albumin 1.7 G/DL (3.4-5.0) L Globulin 4.3 g/dL Albumin/Globulin Ratio 0.4 (1.0-2.7) L Urine Color Pale yellow Urine Appearance Cloudy Urine pH 5 (4.5-8.0) Urine Specific Rule 1.010 (1.005-1.035) Urine Protein Negative (NEGATIVE) Urine Glucose (UA) Negative (NEGATIVE) Urine Ketones Negative (NEGATIVE) Urine Occult Blood 2+ (NEGATIVE) H Urine Nitrite Negative (NEGATIVE) Urine Bilirubin Negative (NEGATIVE) Urine Urobilinogen Normal MG/DL (0.0-1.0) Urine Leukocyte Esterase 3+ (NEGATIVE) H Urine RBC 2-4 /HPF (0 - 2) H Urine WBC 15-20 /HPF (0 - 2) H Urine Squamous Epithelial Cells Few /LPF (NONE/OCC) Urine Bacteria Few /HPF (NONE) Urine Yeast Few /HPF (NONE) H Test 07/24/17 10:25 07/24/17 15:00 Arterial Blood pH 7.402 (7.350-7.450) Arterial Blood Partial Pressure CO2 41.1 mmHg (35.0-45.0) Arterial Blood Partial Pressure O2 74.4 mmHg (75.0-100.0) L Arterial Blood HCO3 25.0 mmol/L (22.0-26.0) Arterial Blood Oxygen Saturation 93.5 % (92.0-98.0) Arterial Blood Base Excess 0.2 Jamie Test Positive Activated Partial Thromboplast Time 115 SEC (23-33) H Neurologic Exam Objective PHYSICAL EXAMINATION: GENERAL: She is a well-developed, but lean and ill-looking lady, lying in an intensive care unit bed with a BiPAP machine connected to her. HEAD: Normocephalic with a right temporoparietal skull defect. EENT: Examination benign. NECK: No neck rigidity was observed. NEUROLOGICAL EXAMINATION: MENTAL STATUS EXAMINATION: She was somnolent, but was arousable. When aroused , she followed commands inconsistently. She was able to give a few yes/no answers, but was unable to communicate in an effective manner. SPEECH: She had a significant dysarthria. LANGUAGE: Could not be tested adequately because of her altered mental state. CRANIAL NERVE EXAMINATION: II: She did blink to threat. III, IV & : The external ocular movements were present and the pupils 3 mm in diameter, equal, round, regular, and reactive to light. V & VII: The corneal reflexes were brisk, but brisker on the right than on the left. She also had mild flattening of the left nasolabial fold. VIII: She seemed to be able to hear well and had no nystagmus. IX & X: Could not be tested adequately. XI: The sternocleidomastoids and trapezii did function. XII: She did protrude the tongue minimally, but could not protrude it completely. MOTOR SYSTEM: The tone was increased in all four extremities with a mild degree of spasticity, slightly more marked on the left side compared to the right. Examination of muscle mass revealed generalized muscle wasting with bilateral ankle cord contractures. Examination of power was exceedingly difficult to perform because of varying degrees of cooperation. She, however, did move all four extremities on command. SENSORY EXAMINATION: She responded appropriately to deep pain. Other sensory modalities could not be tested. REFLEXES: Trace+ on the right and 1+ on the left at the biceps, triceps, brachioradialis, and knees and 0 at both ankles. The plantar responses were extensor bilaterally. COORDINATION, STANCE & GAIT: Could not be tested. Impression/Recommendations Diagnostic Impression 1. Ms. Beatriz Loving is an 87-year-old, lady, of unknown handedness, who does have a past history of hypertension, coronary artery disease, paroxysmal atrial fibrillation, Alzheimer disease, cerebrovascular disease, and right brain surgery for reasons unknown to us, who lives in a [facility]. She was hospitalized on 07/16/2017 for shortness of breath associated with hypoxia, elevated troponin, a urinary tract infection, and possibly a pneumonic process. She was stabilized and on 07/21/2017 was extubated. Following that, she was brighter, but later on 07/22/17 she was noted to be more somnolent and slurring her speech. 2. She continues to be significantly encephalopathic and is still on BiPAP. 3. On neurological examination, at this time, she does have a right temporoparietal skull defect, is somnolent but arousable, is oriented to self only, is unable to cooperate for further mental status testing, is significantly dysarthric, is unable to cooperate for language testing, is generally weak with a spastic quadriparesis, slightly more marked on the left than on the right, and has globally diminished deep tendon reflexes that are slightly brisker on the left than the right with extensor plantar responses bilaterally. 4. The CT scan of the brain without contrast reveals atrophy, deep white matter changes, and a right temporoparietal craniotomy defect, but no acute pathology. 5. Laboratory data on admission revealed that she had a significant leukocytosis with a WBC count of 15.7. She was anemic with a hemoglobin of 9.1. She had a left-sided shift on her white blood cell count. Her arterial blood gas revealed a pCO2 of 51 and a pO2 of 116. A chemistry panel revealed a sodium down to 133, potassium elevated to 5.3, BUN elevated to 24, her glucose elevated to 278, AST elevated to 138, ProBNP was greater than 35,000, her albumin was down to 2.0, and her troponin was elevated to 10.3. Her urinalysis revealed 3+ leukocyte esterase, too numerous to count red blood cells and white blood cells, and many urinary bacteria. 6. The EEG revealed an encephalopathy of moderate degree. 7. Her leukocytosis is significantly worse and she is still hypoxic. 8. 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 Recommendations 1. Continue present management. 2. Continue to correct the patient's toxic metabolic imbalances. 3. Correct the patient's anemia to a hemoglobin of greater than 10 G. 4. Observe closely. Ga Dowling M.D., M.S.P.H. GA DOWLING Jul 24, 2017 17:12
--- NOTE | 2017-07-24 17:21 | Pre-Procedure Note/Attestation ---
Pre-Procedure Note/Attestation Complete Prior to Procedure Planned Procedure: right Procedure Narrative: PICC line placement Indications for Procedure Pre-Operative Diagnosis: Need for IV access Attestation Informed consent obtained prior to the procedure by the primary team. This was confirmed by the radiology team prior to procedure. I attest that I re-evaluated the patient just prior to the surgery and that there has been no change in the patient's H&P, except as documented below: Camilo Vaca M.D. Jul 24, 2017 17:21
--- NOTE | 2017-07-24 17:27 | Diagnostic Imaging Report ---
Indication: PICC line placement Technique: Portable frontal view of the chest Comparison: 07/23/2017 Discussion of procedure: The right arm was prepped and draped in usual sterile fashion. Preprocedure timeout was performed. Access was obtained into the right basilic vein under real-time ultrasound guidance after locally anesthetizing the area with 1% lidocaine. The wire passed easily. Catheter was cut to 35 cm in length. It is easily advanced through the peel-away sheath over the wire. Peel-away sheath was removed. Catheter was noted to flush and aspirate is mildly. Sterile dressing was applied. Findings: Right arm PICC line has its catheter tip in the region of the cavoatrial junction. There is no pneumothorax. Heart size and mediastinal contours are likely stable. There is evidence of prior coronary arterial stenting. Multiple surgical clips again noted in the epigastric region. There is extensive bilateral airspace opacities with bilateral layering pleural effusions. There is slight improved aeration of the left base compared to the prior exam. There is no acute osseous abnormality. Impression: Successful PICC line placement via the right basilic vein as above. Catheter tip in the region of the cavoatrial junction. Catheter cleared for immediate use. Extensive bilateral airspace disease with layering bilateral pleural effusions. Slight interval improved aeration of the left lung base compared to the prior exam.
--- NOTE | 2017-07-24 18:17 | Electroencephalogram ---
DATE OF PROCEDURE: 07/23/2017 EEG REPORT REQUESTING PHYSICIAN: Mac Mendoza M.D. HISTORY: This EEG was performed on an 87-year-old lady with history of an alteration in mental state. She also has a right temporoparietal craniotomy defect and thus this EEG was performed to evaluate the patient for the degree and type of cerebral dysfunction and to exclude ongoing ictal or interictal phenomena. TECHNICAL NOTE: This EEG was performed on a [facility] acquisition Unit with electrodes placed on the scalp according to the International 10-20 system. [id number] and [id number] montages were used. The EEG was technically satisfactory and was performed while the patient was in a poorly responsive state with periods of less arousal versus more arousal. OBSERVATIONS: In the poorly responsive state when the patient was more active and mildly aroused, the background activity consisted of 4-5 Hz posterior rhythmic theta activity. Periods were the patient was less aroused consisted of a background in the delta and theta range. No definite focal abnormalities or epileptiform discharges were seen. IMPRESSION: This is an abnormal electroencephalogram characterized by slowing of the background in the 4-5 Hz theta range at its best. COMMENT: This study is consistent with an encephalopathy of a moderate degree. Ga Fuller M.D., M.S.P.H. DR: KADEN JOB#: [id number] MTDD
[2017-07-24] MEDS: Dyna-Hex 2% Top Sol 2oz TOPIC SCH (19:32)
[2017-07-25] VITALS (24 sets, daily range): BP systolic 95–133; BP diastolic 44–74
[2017-07-25] MEDS: Pantoprazole 80 MG in NS 250 ML IV SCH ×3 (00:16→14:27)
[2017-07-25] MEDS ORDERED: Heparin 5000 units/ml inj IV ONE (00:30)
[2017-07-25] MEDS ORDERED: Heparin 25,000u/D5W 500ml 500 ML IV SCH (00:30)
[2017-07-25] MEDS: Levalbuterol Inh UD 1.25mg/0.5ml HHN SCH ×4 (01:00→19:31)
[2017-07-25] MEDS: Ipratropium 0.02% Inh Soln 2.5ml UD HHN SCH ×4 (01:00→19:31)
[2017-07-25 06:34] LABS: HEMATOCRIT 28.8 % (37.0-47.0); HEMOGLOBIN 8.8 G/DL (12.0-16.0); MEAN CORPUSCULAR VOLUME 88 FL (80-99); PLATELET COUNT 277 K/UL (150-450); RED BLOOD COUNT 3.26 M/UL (4.20-5.40); RED CELL DISTRIBUTION WIDTH 21.2 % (11.6-14.8); WHITE BLOOD COUNT 17.5 K/UL (4.8-10.8)
[2017-07-25 06:56] LABS: INR 1.6 (0.9-1.1)
[2017-07-25 07:01] LABS: ALANINE AMINOTRANSFERASE 8 U/L (12-78); ALBUMIN 1.4 G/DL (3.4-5.0); ALBUMIN/GLOBULIN RATIO 0.4 (1.0-2.7); ALKALINE PHOSPHATASE 47 U/L (46-116); ANION GAP 4 mmol/L (5-15); ASPARTATE AMINO TRANSFERASE 17 U/L (15-37); BILIRUBIN,TOTAL 0.5 MG/DL (0.2-1.0); BLOOD UREA NITROGEN 15 mg/dL (7-18); CALCIUM 6.8 MG/DL (8.5-10.1); CARBON DIOXIDE 32 MMOL/L (21-32); CHLORIDE 108 MMOL/L (98-107); CREATININE 0.9 MG/DL (0.55-1.30); SODIUM 144 MMOL/L (136-145)
[2017-07-25 07:22] LABS: POTASSIUM 2.7 MMOL/L (3.5-5.1)
--- NOTE | 2017-07-25 08:59 | Pulmonolgy Critical Care Note ---
Critical Care - Asmt/Plan Problems: (1) Ventilator dependent Assessment & Plan: Extubated 07/21, placed on BiPAP later the same day for hypoxemia and hypercapnia (2) Pneumonia (3) Elevated troponin (4) Septic shock (5) Demand ischemia of myocardium (6) Transaminitis (7) CVA (cerebral vascular accident) (8) Ischemic cardiomyopathy (9) Alzheimer's dementia (10) CAD s/p PCI (11) diffuse severe gastropathy (12) lives at snf (13) paroxsymal atrial fibrillation (14) Acute on chronic diastolic heart failure (15) NSTEMI (non-ST elevated myocardial infarction) (16) Failure to thrive (17) Functional quadriplegia (18) Generalized weakness (19) S/P percutaneous endoscopic gastrostomy (PEG) tube placement Assessment/Plan: -BiPAP qHS and PRN - will wean to FM as tolerated -Monitor gas exchange -Very cautious TF"s while on BiPAP -Atrovent and Xopenex HHN's q6WA and q4 PRN -Abx per ID, F/U repeat CX's -CT C/A/P pending -IV PPI & IV Venofer, monitor for bleeding, F/U GI recs -[facility] per cards -F/U neuro recs -Monitor volumes -->Continue Lasix 40 IV BID -Wound care -FC. continue to discuss GOC, agree with BIOETH[facility] eval D/W CLINICAL RN LIAISON and RT CC 45 Critical Care - Objective Last 24 Hour Vital Signs Date Time Temp Pulse Resp B/P (MAP) Pulse Ox O2 Delivery O2 Flow Rate FiO2 07/25/17 08:00 97.6 74 28 95/46 100 Bi-pap 100 07/25/17 07:42 81 25 100 Bi-pap 100 07/25/17 07:41 80 20 Full Face 100 07/25/17 07:00 86 29 124/57 99 Bi-pap 100 07/25/17 06:00 87 29 129/53 99 Bi-pap 100 07/25/17 05:00 100 07/25/17 05:00 77 27 103/49 100 Bi-pap 100 07/25/17 04:31 101 31 Full Face 70 07/25/17 04:00 109 07/25/17 04:00 98.6 109 35 116/61 91 Bi-pap 100 07/25/17 04:00 100 07/25/17 03:11 145 28 100 Full Face 70 07/25/17 03:00 123 29 98/62 99 Bi-pap 70 07/25/17 02:00 126 29 101/58 99 Bi-pap 70 07/25/17 01:20 Bi-pap 07/25/17 01:19 174 07/25/17 01:18 174 40 99 Full Face 70 07/25/17 01:00 139 34 113/56 99 Bi-pap 70 07/25/17 00:00 98.7 141 31 132/53 98 Bi-pap 70 07/25/17 00:00 141 07/25/17 00:00 70 07/24/17 23:19 120 32 99 Full Face 70 07/24/17 23:00 124 29 127/63 98 Bi-pap 80 07/24/17 22:15 128/63 07/24/17 22:00 70 07/24/17 22:00 119 28 128/63 99 Bi-pap 70 07/24/17 21:14 99 21 97 Full Face 70 07/24/17 21:00 112 25 122/62 99 Bi-pap 80 07/24/17 20:39 97 128/56 07/24/17 20:00 93 07/24/17 20:00 98.3 93 28 128/56 98 Bi-pap 80 07/24/17 20:00 80 07/24/17 19:54 78 28 100 Bi-pap 80 07/24/17 19:43 91 28 100 Bi-pap 80 07/24/17 19:29 91 28 100 1.0 80 07/24/17 19:03 84 22 123/58 100 Bi-pap 80 07/24/17 18:00 83 27 105/54 98 Bi-pap 80 07/24/17 17:08 84 32 100 Full Face 80 07/24/17 17:07 96 35 127/53 98 Bi-pap 80 07/24/17 17:00 105 29 112/57 98 Bi-pap 80 07/24/17 16:00 98.2 108 35 128/73 100 Bi-pap 80 07/24/17 16:00 80 07/24/17 16:00 108 07/24/17 15:30 81 34 100 Full Face 100 07/24/17 15:00 96 35 127/53 98 Bi-pap 80 07/24/17 14:00 84 31 131/58 100 Bi-pap 80 07/24/17 13:30 83 30 100 Full Face 100 07/24/17 13:30 98 30 100 Bi-pap 100 07/24/17 13:00 79 32 135/59 99 Bi-pap 80 07/24/17 12:00 79 07/24/17 12:00 80 07/24/17 12:00 98.5 84 33 137/63 100 Bi-pap 80 07/24/17 11:50 87 30 93 Full Face 80 07/24/17 11:00 93 38 129/61 100 Bi-pap 80 07/24/17 10:00 87 32 129/62 100 Bi-pap 80 07/24/17 09:00 96 34 100 Full Face 100 07/24/17 09:00 84 32 122/53 87 Non-Rebreather 15.0 Status: obtunded Condition: critical HEENT: atraumatic, normocephalic, other - BiPPA Lungs: clear Heart: HR/BP stable Abdomen: soft, non-tender, active bowel sounds, feeding tube Extremities: no C/C/E Critical Care - Subjective ROS Limited/Unobtainable: Yes ICU Day: 10 Intubation Day: BiPAP Interval Events: FiO2 100% on BiPAP, SaO2 100%, became restless when taken off so was placed back on CT pending, WCT better, K 2.7, EEG c/w TM encephalopathy No change in MS FI02: 100 Vent Support Breath Rate: 16 Vent Support Mode: CPAP Vent Tidal Volume: 500 Sputum Amount: None PEEP: 5.0 PIP: 14 Tube Feeding Amount: 30 I&O: Intake and Output 07/24/17 07/25/17 19:00 07:00 Intake Total 1080.84 ml 1094.923 ml Output Total 1475 ml 1190 ml Balance -394.16 ml -95.077 ml Free Water 20 ml IV Total 840.84 ml 714.923 ml Tube Feeding 240 ml 360 ml Output Urine Total 1475 ml 1190 ml # Bowel Movements 1 ET-Tube: 7.5 ET Position: 23 Labs: Laboratory Tests Test 07/24/17 10:00 07/24/17 10:25 07/24/17 15:00 07/24/17 22:30 Urine Color Pale yellow Urine Appearance Cloudy Urine pH 5 (4.5-8.0) Urine Specific [place] 1.010 (1.005-1.035) Urine Protein Negative (NEGATIVE) Urine Glucose (UA) Negative (NEGATIVE) Urine Ketones Negative (NEGATIVE) Urine Occult Blood 2+ (NEGATIVE) H Urine Nitrite Negative (NEGATIVE) Urine Bilirubin Negative (NEGATIVE) Urine Urobilinogen Normal MG/DL (0.0-1.0) Urine Leukocyte Esterase 3+ (NEGATIVE) H Urine RBC 2-4 /HPF (0 - 2) H Urine WBC 15-20 /HPF (0 - 2) H Urine Squamous Epithelial Cells Few /LPF (NONE/OCC) Urine Bacteria Few /HPF (NONE) Urine Yeast Few /HPF (NONE) H Arterial Blood pH 7.402 (7.350-7.450) Arterial Blood Partial Pressure CO2 41.1 mmHg (35.0-45.0) Arterial Blood Partial Pressure O2 74.4 mmHg (75.0-100.0) L Arterial Blood HCO3 25.0 mmol/L (22.0-26.0) Arterial Blood Oxygen Saturation 93.5 % (92.0-98.0) Arterial Blood Base Excess 0.2 Jamie Test Positive Activated Partial Thromboplast Time 115 SEC (23-33) H 60 SEC (23-33) H Test 07/25/17 06:30 White Blood Count 17.5 K/UL (4.8-10.8) H Red Blood Count 3.26 M/UL (4.20-5.40) L Hemoglobin 8.8 G/DL (12.0-16.0) L Hematocrit 28.8 % (37.0-47.0) L Mean Corpuscular Volume 88 FL (80-99) Mean Corpuscular Hemoglobin 27.2 PG (27.0-31.0) Mean Corpuscular Hemoglobin Concent 30.8 G/DL (32.0-36.0) L Red Cell Distribution Width 21.2 % (11.6-14.8) H Platelet Count 277 K/UL (150-450) Mean Platelet Volume 9.2 FL (6.5-10.1) Neutrophils (%) (Auto) % (45.0-75.0) Lymphocytes (%) (Auto) % (20.0-45.0) Monocytes (%) (Auto) % (1.0-10.0) Eosinophils (%) (Auto) % (0.0-3.0) Basophils (%) (Auto) % (0.0-2.0) Differential Total Cells Counted 100 Neutrophils % (Manual) 96 % (45-75) H Lymphocytes % (Manual) 2 % (20-45) L Monocytes % (Manual) 2 % (1-10) Eosinophils % (Manual) 0 % (0-3) Basophils % (Manual) 0 % (0-2) Band Neutrophils 0 % (0-8) Platelet Estimate Adequate Platelet Morphology Normal Hypochromasia 2+ Anisocytosis 3+ Prothrombin Time 17.0 SEC (9.30-11.50) H Prothromb Time International Ratio 1.6 (0.9-1.1) H Activated Partial Thromboplast Time 105 SEC (23-33) H Sodium Level 144 MMOL/L (136-145) Potassium Level 2.7 MMOL/L (3.5-5.1) *L Chloride Level 108 MMOL/L (98-107) H Carbon Dioxide Level 32 MMOL/L (21-32) Anion Gap 4 mmol/L (5-15) L Blood Urea Nitrogen 15 mg/dL (7-18) Creatinine 0.9 MG/DL (0.55-1.30) Estimat Glomerular Filtration Rate mL/min (>60) Glucose Level 154 MG/DL (74-106) H Calcium Level 6.8 MG/DL (8.5-10.1) L Phosphorus Level 5.0 MG/DL (2.5-4.9) H Magnesium Level 1.5 MG/DL (1.8-2.4) L Total Bilirubin 0.5 MG/DL (0.2-1.0) Aspartate Amino Transf (AST/SGOT) 17 U/L (15-37) Alanine Aminotransferase (ALT/SGPT) 8 U/L (12-78) L Alkaline Phosphatase 47 U/L (46-116) Total Protein 5.2 G/DL (6.4-8.2) L Albumin 1.4 G/DL (3.4-5.0) L Globulin 3.8 g/dL Albumin/Globulin Ratio 0.4 (1.0-2.7) L FRANCOIS ZUNIGA M.D. Jul 25, 2017 08:59
[2017-07-25] MEDS: Meropenem 500mg in NS 55ml IVPB SCH (09:00)
--- NOTE | 2017-07-25 09:17 | General Progress Note ---
Assessment/Plan Problem List: (1) Respiratory failure ICD Codes: J96.90 - Respiratory failure, unspecified, unspecified whether with hypoxia or hypercapnia SNOMED: 183094101 (2) Failure to thrive SNOMED: 50424543 (3) NSTEMI (non-ST elevated myocardial infarction) ICD Codes: I21.4 - Non-ST elevation (NSTEMI) myocardial infarction SNOMED: 298742603 (4) Transaminitis ICD Codes: R74.0 - Nonspecific elevation of levels of transaminase and lactic acid dehydrogenase [LDH] SNOMED: 351906806 (5) Anemia ICD Codes: D64.9 - Anemia, unspecified SNOMED: 957249207 (6) Elevated troponin ICD Codes: R74.8 - Abnormal levels of other serum enzymes SNOMED: 286010879, 568522461 Assessment/Plan Assessment - respiratory failure - dysphagia, s/p prior GJ tube >> now changed to GT - UGIB - no plans for EGD at this time due to [place] - NSTEMI - AMS - Anemia - OB stool positive pt extubated, now on BIPAP Recommendations EGD to be scheduled pending cardiac clearance, will consider replacement of GJ tube if necessary. - patient is also on Eliquis which must dc 48-72 hours min prior any GI procedures Gastric Lavage 500 cc r/o UGIB >> POSITIVE, will require EGD when stable. GTFs per RD monitor H&H closely, stable last few days cardiology f/u PPI gtt abx fu labs Subjective ROS Limited/Unobtainable: No Allergies: Coded Allergies: No Known Allergies (Unverified , 05/25/13) Objective Last 24 Hour Vital Signs Date Time Temp Pulse Resp B/P (MAP) Pulse Ox O2 Delivery O2 Flow Rate FiO2 07/25/17 08:00 97.6 74 28 95/46 100 Bi-pap 100 07/25/17 07:42 81 25 100 Bi-pap 100 07/25/17 07:41 80 20 Full Face 100 07/25/17 07:00 86 29 124/57 99 Bi-pap 100 07/25/17 06:00 87 29 129/53 99 Bi-pap 100 07/25/17 05:00 100 07/25/17 05:00 77 27 103/49 100 Bi-pap 100 07/25/17 04:31 101 31 Full Face 70 07/25/17 04:00 109 12/23/17 04:00 98.6 109 35 116/61 91 Bi-pap 100 07/25/17 04:00 100 07/25/17 03:11 145 28 100 Full Face 70 07/25/17 03:00 123 29 98/62 99 Bi-pap 70 07/25/17 02:00 126 29 101/58 99 Bi-pap 70 07/25/17 01:20 Bi-pap 07/25/17 01:19 174 07/25/17 01:18 174 40 99 Full Face 70 07/25/17 01:00 139 34 113/56 99 Bi-pap 70 07/25/17 00:00 98.7 141 31 132/53 98 Bi-pap 70 07/25/17 00:00 141 07/25/17 00:00 70 07/24/17 23:19 120 32 99 Full Face 70 07/24/17 23:00 124 29 127/63 98 Bi-pap 80 07/24/17 22:15 128/63 07/24/17 22:00 70 07/24/17 22:00 119 28 128/63 99 Bi-pap 70 07/24/17 21:14 99 21 97 Full Face 70 07/24/17 21:00 112 25 122/62 99 Bi-pap 80 07/24/17 20:39 97 128/56 07/24/17 20:00 93 07/24/17 20:00 98.3 93 28 128/56 98 Bi-pap 80 07/24/17 20:00 80 07/24/17 19:54 78 28 100 Bi-pap 80 07/24/17 19:43 91 28 100 Bi-pap 80 07/24/17 19:29 91 28 100 1.0 80 07/24/17 19:03 84 22 123/58 100 Bi-pap 80 07/24/17 18:00 83 27 105/54 98 Bi-pap 80 07/24/17 17:08 84 32 100 Full Face 80 07/24/17 17:07 96 35 127/53 98 Bi-pap 80 07/24/17 17:00 105 29 112/57 98 Bi-pap 80 07/24/17 16:00 98.2 108 35 128/73 100 Bi-pap 80 07/24/17 16:00 80 07/24/17 16:00 108 07/24/17 15:30 81 34 100 Full Face 100 07/24/17 15:00 96 35 127/53 98 Bi-pap 80 07/24/17 14:00 84 31 131/58 100 Bi-pap 80 07/24/17 13:30 83 30 100 Full Face 100 07/24/17 13:30 98 30 100 Bi-pap 100 07/24/17 13:00 79 32 135/59 99 Bi-pap 80 07/24/17 12:00 79 07/24/17 12:00 80 07/24/17 12:00 98.5 84 33 137/63 100 Bi-pap 80 07/24/17 11:50 87 30 93 Full Face 80 07/24/17 11:00 93 38 129/61 100 Bi-pap 80 07/24/17 10:00 87 32 129/62 100 Bi-pap 80 Intake and Output 07/24/17 07/25/17 19:00 07:00 Intake Total 1080.84 ml 1094.923 ml Output Total 1475 ml 1190 ml Balance -394.16 ml -95.077 ml Free Water 20 ml IV Total 840.84 ml 714.923 ml Tube Feeding 240 ml 360 ml Output Urine Total 1475 ml 1190 ml # Bowel Movements 1 Laboratory Tests 07/24/17 10:00: Urine Color Pale yellow, Urine Appearance Cloudy, Urine pH 5, Urine Specific [place] 1.010, Urine Protein Negative, Urine Glucose (UA) Negative, Urine Ketones Negative, Urine Occult Blood 2+H, Urine Nitrite Negative, Urine Bilirubin Negative, Urine Urobilinogen Normal, Urine Leukocyte Esterase 3+H, Urine RBC 2-4H, Urine WBC 15-20H, Urine Squamous Epithelial Cells Few, Urine Bacteria Few, Urine Yeast FewH 07/24/17 10:25: Arterial Blood pH 7.402, Arterial Blood Partial Pressure CO2 41.1, Arterial Blood Partial Pressure O2 74.4L, Arterial Blood HCO3 25.0, Arterial Blood Oxygen Saturation 93.5, Arterial Blood Base Excess 0.2, Jamie Test Positive 07/24/17 15:00: Activated Partial Thromboplast Time 115H 07/24/17 22:30: Activated Partial Thromboplast Time 60H 07/25/17 06:30: White Blood Count 17.5H, Red Blood Count 3.26L, Hemoglobin 8.8L, Hematocrit 28.8L, Mean Corpuscular Volume 88, Mean Corpuscular Hemoglobin 27.2, Mean Corpuscular Hemoglobin Concent 30.8L, Red Cell Distribution Width 21.2H, Platelet Count 277, Mean Platelet Volume 9.2, Neutrophils (%) (Auto) , Lymphocytes (%) (Auto) , Monocytes (%) (Auto) , Eosinophils (%) (Auto) , Basophils (%) (Auto) , Differential Total Cells Counted 100, Neutrophils % ( Manual) 96H, Lymphocytes % (Manual) 2L, Monocytes % (Manual) 2, Eosinophils % ( Manual) 0, Basophils % (Manual) 0, Band Neutrophils 0, Platelet Estimate Adequate, Platelet Morphology Normal, Hypochromasia 2+, Anisocytosis 3+, Prothrombin Time 17.0H, Prothromb Time International Ratio 1.6H, Activated Partial Thromboplast Time 105H, Sodium Level 144, Potassium Level 2.7*L, Chloride Level 108H, Carbon Dioxide Level 32, Anion Gap 4L, Blood Urea Nitrogen 15, Creatinine 0.9, Estimat Glomerular Filtration Rate , Glucose Level 154H, Calcium Level 6.8L, Phosphorus Level 5.0H, Magnesium Level 1.5L, Total Bilirubin 0.5, Aspartate Amino Transf (AST/SGOT) 17, Alanine Aminotransferase ( ALT/SGPT) 8L, Alkaline Phosphatase 47, Total Protein 5.2L, Albumin 1.4L, Globulin 3.8, Albumin/Globulin Ratio 0.4L Height (Feet): 5 Height (Inches): 2.00 Weight (Pounds): 107 General Appearance: mild distress EENT: normal ENT inspection Neck: supple Cardiovascular: tachycardia Respiratory/Chest: decreased breath sounds Abdomen: normal bowel sounds, non tender, soft Extremities: non-tender MITUL JUAREZ Jul 25, 2017 09:17
[2017-07-25] MEDS: Metoprolol Tartrate 12.5mg TAB ORAL SCH ×2 (09:19→20:26)
[2017-07-25] MEDS: Aspirin Baby 81mg NG SCH (09:19)
[2017-07-25] MEDS: Heparin 25,000u/D5W 500ml 500 ML IV SCH (09:47)
[2017-07-25] MEDS: Vancomycin 1250mg/D5W 250ml IVPB SCH (09:55)
--- NOTE | 2017-07-25 13:25 | General Progress Note ---
Assessment/Plan Problem List: (1) Acute respiratory failure with hypoxia and hypercapnia ICD Codes: J96.01 - Acute respiratory failure with hypoxia; J96.02 - Acute respiratory failure with hypercapnia SNOMED: 04234259, 51902862, 355602530 (2) Severe sepsis ICD Codes: A41.9 - Sepsis, unspecified organism; R65.20 - Severe sepsis without septic shock SNOMED: 67465514 (3) HCAP vs Aspiration pneumonia (4) UTI (urinary tract infection) ICD Codes: N39.0 - Urinary tract infection, site not specified SNOMED: 52480506 (5) Lactic acid acidosis ICD Codes: E87.2 - Acidosis SNOMED: 36150791 (6) NSTEMI (non-ST elevated myocardial infarction) ICD Codes: I21.4 - Non-ST elevation (NSTEMI) myocardial infarction SNOMED: 231551523 (7) Acute on chronic anemia (8) Hyponatremia ICD Codes: E87.1 - Hypo-osmolality and hyponatremia SNOMED: 60145412 (9) paroxsymal atrial fibrillation (10) CAD s/p PCI (11) Ischemic cardiomyopathy ICD Codes: I25.5 - Ischemic cardiomyopathy SNOMED: 556071063 (12) CVA (cerebral vascular accident) ICD Codes: I63.9 - Cerebral infarction, unspecified SNOMED: 793456418 (13) Alzheimer's dementia ICD Codes: G30.9 - Alzheimer's disease, unspecified SNOMED: 02801043 Status: stable Assessment/Plan Continue in ICU Pulm, cardiology, ID, GI consulted, appreciate rec's s/p extubation on 07/21/17 Cont BiPAP per pulm and wean as tolerated Lasix 40mg IV BID F/u FFWU sent 07/24 given rising WBC Cont Vanco, Meropenem per ID; started flagyl and diflucan F/u cultures Neurology consulted given new onset slurred speech. CT head negative. F/u EEG Trend CBC, BMP, lactate Trend trop/EKG --> trop downtrending F/u TTE --> 45% EF with mild LVDD Cont heparin gtt per cardiology (Eliquis on hold) s/p 1 unit pRBC transfusion 07/17. Gastric lavage on 07/17 showed e/o bleeding but currently no active signs of bleeding Patient will eventually need EGD/colonoscopy to assess for GIB given acute drop in hemoglobin and positive FOBT. However, patient is unstable at the moment given NSTEMI/elevated trops. Awaiting cardiac clearance Continue PPI gtt Continue IV venofer Cont G-tube feedings per GI Supportive care SW consulted to for bioethics eval DVT Prophylaxis: SCD, heparin gtt Code Status: Full per discussion w/ pt's DPOA/daughter Hospital Classification Declaration: Based on this initial evaluation, and depending on the patient's clinical course, I anticipate that this patient will require hospitalization for 2-3 days for acute respiratory faiure, severe sepsis and close respiratory/hemodynamic monitoring. Disposition: Once the patient is stable to leave the hospital, I anticipate the patient will likely be discharged to the following environment: back to SNF At the time of my involvement, the patient's condition was critical with high potential for and/or physiologic deterioration secondary to acute respiratory failure, severe sepsis as delineated in the note above. On the above date of service, I spent a total of 36 minutes in the ICU evaluating, managing, and providing critical care services to this patient, including time spent documenting these activities, counseling patient/family, and coordinating care. Critical care services performed include: Telemetry Review Hemodynamic measurement interpretation Laboratory data review and interpretation BiPAP setting review, management, and adjustment Discussion of care plans with patient, family, and/or surrogate decision makers Discussion of patient's care with primary medical team, surgical team, and/or consulting service Decision to obtain further radiologic evaluation, after consideration of risk/ benefit ratio Review of most recent microbiology results with assessment and modification of antimicrobial coverage Discussion of patient's code status and further advancement towards the ultimate goals of care Plan outlined above discussed with patient/family, STRUCTURAL ARCHITECT, ICU team, and involved physicians/consultants. Time of note may not reflect time of encounter. Subjective Date patient seen: Jul 25, 2017 Time patient seen: 14:00 ROS Limited/Unobtainable: Yes Allergies: Coded Allergies: No Known Allergies (Unverified , 05/25/13) Subjective No acute o/n events Extubated on 07/21 but has been BiPAP dependent since Tried on full face O2 mask this AM but pt became hypoxic Cont on BiPAP Pt lethargic, arousable Called pt's daughter but no response and unable to leave [facility] as voicemail box ful Objective Last 24 Hour Vital Signs Date Time Temp Pulse Resp B/P (MAP) Pulse Ox O2 Delivery O2 Flow Rate FiO2 07/25/17 12:00 97.5 87 31 133/61 98 Bi-pap 100 07/25/17 12:00 100 07/25/17 11:02 73 20 95 Full Face 100 07/25/17 11:00 80 27 103/57 97 Bi-pap 100 07/25/17 10:00 75 31 129/67 100 Bi-pap 100 07/25/17 09:23 89 20 100 Full Face 80 07/25/17 09:19 87 118/62 07/25/17 09:00 88 27 118/62 100 Bi-pap 100 07/25/17 08:00 97.6 74 28 95/46 100 Bi-pap 100 07/25/17 08:00 76 07/25/17 07:50 89 27 100 Bi-pap 80 07/25/17 07:42 81 25 100 Bi-pap 100 07/25/17 07:41 80 20 Full Face 100 07/25/17 07:00 86 29 124/57 99 Bi-pap 100 07/25/17 06:00 87 29 129/53 99 Bi-pap 100 07/25/17 05:00 100 07/25/17 05:00 77 27 103/49 100 Bi-pap 100 07/25/17 04:31 101 31 Full Face 70 07/25/17 04:00 109 07/25/17 04:00 98.6 109 35 116/61 91 Bi-pap 100 07/25/17 04:00 100 07/25/17 03:11 145 28 100 Full Face 70 07/25/17 03:00 123 29 98/62 99 Bi-pap 70 07/25/17 02:00 126 29 101/58 99 Bi-pap 70 07/25/17 01:20 Bi-pap 07/25/17 01:19 174 07/25/17 01:18 174 40 99 Full Face 70 07/25/17 01:00 139 34 113/56 99 Bi-pap 70 07/25/17 00:00 98.7 141 31 132/53 98 Bi-pap 70 07/25/17 00:00 141 07/25/17 00:00 70 07/24/17 23:19 120 32 99 Full Face 70 07/24/17 23:00 124 29 127/63 98 Bi-pap 80 07/24/17 22:15 128/63 07/24/17 22:00 70 07/24/17 22:00 119 28 128/63 99 Bi-pap 70 07/24/17 21:14 99 21 97 Full Face 70 07/24/17 21:00 112 25 122/62 99 Bi-pap 80 07/24/17 20:39 97 128/56 07/24/17 20:00 93 07/24/17 20:00 98.3 93 28 128/56 98 Bi-pap 80 07/24/17 20:00 80 07/24/17 19:54 78 28 100 Bi-pap 80 07/24/17 19:43 91 28 100 Bi-pap 80 07/24/17 19:29 91 28 100 1.0 80 07/24/17 19:03 84 22 123/58 100 Bi-pap 80 07/24/17 18:00 83 27 105/54 98 Bi-pap 80 07/24/17 17:08 84 32 100 Full Face 80 07/24/17 17:07 96 35 127/53 98 Bi-pap 80 07/24/17 17:00 105 29 112/57 98 Bi-pap 80 07/24/17 16:00 98.2 108 35 128/73 100 Bi-pap 80 07/24/17 16:00 80 07/24/17 16:00 108 07/24/17 15:30 81 34 100 Full Face 100 07/24/17 15:00 96 35 127/53 98 Bi-pap 80 07/24/17 14:00 84 31 131/58 100 Bi-pap 80 07/24/17 13:30 83 30 100 Full Face 100 07/24/17 13:30 98 30 100 Bi-pap 100 Intake and Output 07/24/17 07/25/17 19:00 07:00 Intake Total 1080.84 ml 1094.923 ml Output Total 1475 ml 1190 ml Balance -394.16 ml -95.077 ml Free Water 20 ml IV Total 840.84 ml 714.923 ml Tube Feeding 240 ml 360 ml Output Urine Total 1475 ml 1190 ml # Bowel Movements 1 Laboratory Tests 07/24/17 15:00: Activated Partial Thromboplast Time 115H 07/24/17 22:30: Activated Partial Thromboplast Time 60H 07/25/17 06:30: Activated Partial Thromboplast Time 105H, White Blood Count 17.5H, Red Blood Count 3.26L, Hemoglobin 8.8L, Hematocrit 28.8L, Mean Corpuscular Volume 88, Mean Corpuscular Hemoglobin 27.2, Mean Corpuscular Hemoglobin Concent 30.8L, Red Cell Distribution Width 21.2H, Platelet Count 277, Mean Platelet Volume 9.2 , Neutrophils (%) (Auto) , Lymphocytes (%) (Auto) , Monocytes (%) (Auto) , Eosinophils (%) (Auto) , Basophils (%) (Auto) , Differential Total Cells Counted 100, Neutrophils % (Manual) 96H, Lymphocytes % (Manual) 2L, Monocytes % (Manual) 2, Eosinophils % (Manual) 0, Basophils % (Manual) 0, Band Neutrophils 0 , Platelet Estimate Adequate, Platelet Morphology Normal, Hypochromasia 2+, Anisocytosis 3+, Prothrombin Time 17.0H, Prothromb Time International Ratio 1.6H , Sodium Level 144, Potassium Level 2.7*L, Chloride Level 108H, Carbon Dioxide Level 32, Anion Gap 4L, Blood Urea Nitrogen 15, Creatinine 0.9, Estimat Glomerular Filtration Rate , Glucose Level 154H, Calcium Level 6.8L, Phosphorus Level 5.0H, Magnesium Level 1.5L, Total Bilirubin 0.5, Aspartate Amino Transf ( AST/SGOT) 17, Alanine Aminotransferase (ALT/SGPT) 8L, Alkaline Phosphatase 47, Total Protein 5.2L, Albumin 1.4L, Globulin 3.8, Albumin/Globulin Ratio 0.4L 07/25/17 10:30: Activated Partial Thromboplast Time 84H Height (Feet): 5 Height (Inches): 2.00 Weight (Pounds): 107 Objective General: awake, alert, lethargic, on BiPAP Head: normocephalic, without obvious abnormality, atraumatic Eyes: conjunctivae/corneas clear. PERRL, EOM's intact Throat: lips, mucosa, and tongue normal. MMM Neck: supple, symmetrical, trachea midline, and no JVD Lungs: clear to auscultation bilaterally Heart: regular rate and rhythm, S1, S2 normal, no murmur, click, rub or gallop Abdomen: soft, non-tender, non-distended, bowel sounds normal; +PEG c/d/i Extremities: extremities normal, atraumatic, no cyanosis or edema Pulses: 2+ and symmetric Skin: skin color, texture, turgor normal; no rashes or lesions Neurologic: Kilo Manrique M.D. Jul 25, 2017 13:25
[2017-07-25] MEDS: Spironolactone 25mg tab NG SCH (15:51)
--- NOTE | 2017-07-25 16:35 | Neurology Progress Note ---
Interim History Interim History Interim History Ms. Loving continues to be encephalopathic. Her mental state continues to wax and wane. She continues to be on BiPAP Her cerebration is slow. She is disoriented. She is generally weak. She is still unable to cooperate for a detailed neurologic examination. Review of Systems Neuro Review of Systems Unable to obtain. Objective Physical Exam Last Vital Signs Date Time Temp Pulse Resp B/P (MAP) Pulse Ox O2 Delivery O2 Flow Rate FiO2 07/25/17 16:00 100 07/25/17 15:42 81 21 94 Full Face 07/25/17 14:00 108/74 07/25/17 12:00 97.5 07/24/17 19:29 1.0 Laboratory Tests Test 07/24/17 22:30 07/25/17 06:30 07/25/17 09:00 07/25/17 10:30 Activated Partial Thromboplast Time 60 SEC (23-33) H 105 SEC (23-33) H 84 SEC (23-33) H White Blood Count 17.5 K/UL (4.8-10.8) H Red Blood Count 3.26 M/UL (4.20-5.40) L Hemoglobin 8.8 G/DL (12.0-16.0) L Hematocrit 28.8 % (37.0-47.0) L Mean Corpuscular Volume 88 FL (80-99) Mean Corpuscular Hemoglobin 27.2 PG (27.0-31.0) Mean Corpuscular Hemoglobin Concent 30.8 G/DL (32.0-36.0) L Red Cell Distribution Width 21.2 % (11.6-14.8) H Platelet Count 277 K/UL (150-450) Mean Platelet Volume 9.2 FL (6.5-10.1) Neutrophils (%) (Auto) % (45.0-75.0) Lymphocytes (%) (Auto) % (20.0-45.0) Monocytes (%) (Auto) % (1.0-10.0) Eosinophils (%) (Auto) % (0.0-3.0) Basophils (%) (Auto) % (0.0-2.0) Differential Total Cells Counted 100 Neutrophils % (Manual) 96 % (45-75) H Lymphocytes % (Manual) 2 % (20-45) L Monocytes % (Manual) 2 % (1-10) Eosinophils % (Manual) 0 % (0-3) Basophils % (Manual) 0 % (0-2) Band Neutrophils 0 % (0-8) Platelet Estimate Adequate Platelet Morphology Normal Hypochromasia 2+ Anisocytosis 3+ Prothrombin Time 17.0 SEC (9.30-11.50) H Prothromb Time International Ratio 1.6 (0.9-1.1) H Sodium Level 144 MMOL/L (136-145) Potassium Level 2.7 MMOL/L (3.5-5.1) *L Chloride Level 108 MMOL/L (98-107) H Carbon Dioxide Level 32 MMOL/L (21-32) Anion Gap 4 mmol/L (5-15) L Blood Urea Nitrogen 15 mg/dL (7-18) Creatinine 0.9 MG/DL (0.55-1.30) Estimat Glomerular Filtration Rate mL/min (>60) Glucose Level 154 MG/DL (74-106) H Calcium Level 6.8 MG/DL (8.5-10.1) L Phosphorus Level 5.0 MG/DL (2.5-4.9) H Magnesium Level 1.5 MG/DL (1.8-2.4) L Total Bilirubin 0.5 MG/DL (0.2-1.0) Aspartate Amino Transf (AST/SGOT) 17 U/L (15-37) Alanine Aminotransferase (ALT/SGPT) 8 U/L (12-78) L Alkaline Phosphatase 47 U/L (46-116) Total Protein 5.2 G/DL (6.4-8.2) L Albumin 1.4 G/DL (3.4-5.0) L Globulin 3.8 g/dL Albumin/Globulin Ratio 0.4 (1.0-2.7) L Arterial Blood pH 7.367 (7.350-7.450) Arterial Blood Partial Pressure CO2 48.3 mmHg (35.0-45.0) H Arterial Blood Partial Pressure O2 118.4 mmHg (75.0-100.0) H Arterial Blood HCO3 27.1 mmol/L (22.0-26.0) H Arterial Blood Oxygen Saturation 97.4 % (92.0-98.0) Arterial Blood Base Excess 1.4 Jamie Test Positive Neurologic Exam Objective PHYSICAL EXAMINATION: GENERAL: She is a well-developed, but lean and ill-looking lady, lying in an intensive care unit bed with a BiPAP machine connected to her. HEAD: Normocephalic with a right temporoparietal skull defect. EENT: Examination benign. NECK: No neck rigidity was observed. NEUROLOGICAL EXAMINATION: MENTAL STATUS EXAMINATION: She was somnolent, but was arousable. When aroused , she followed commands inconsistently. She was able to give a few yes/no answers, but was unable to communicate in an effective manner. SPEECH: She had a significant dysarthria. LANGUAGE: Could not be tested adequately because of her altered mental state. CRANIAL NERVE EXAMINATION: II: She did blink to threat. III, IV & : The external ocular movements were present and the pupils 3 mm in diameter, equal, round, regular, and reactive to light. V & VII: The corneal reflexes were brisk, but brisker on the right than on the left. She also had mild flattening of the left nasolabial fold. VIII: She seemed to be able to hear well and had no nystagmus. IX & X: Could not be tested adequately. XI: The sternocleidomastoids and trapezii did function. XII: She did protrude the tongue minimally, but could not protrude it completely. MOTOR SYSTEM: The tone was increased in all four extremities with a mild degree of spasticity, slightly more marked on the left side compared to the right. Examination of muscle mass revealed generalized muscle wasting with bilateral ankle cord contractures. Examination of power was exceedingly difficult to perform because of varying degrees of cooperation. She, however, did move all four extremities on command. SENSORY EXAMINATION: She responded minimally to deep pain. Other sensory modalities could not be tested. REFLEXES: Trace+ on the right and 1+ on the left at the biceps, triceps, brachioradialis, and knees and 0 at both ankles. The plantar responses were extensor bilaterally. COORDINATION, STANCE & GAIT: Could not be tested. Impression/Recommendations Diagnostic Impression 1. Ms. Beatriz Loving is an 87-year-old, lady, of unknown handedness, who does have a past history of hypertension, coronary artery disease, paroxysmal atrial fibrillation, Alzheimer disease, cerebrovascular disease, and right brain surgery for reasons unknown to us, who lives in a senior care. She was hospitalized on 07/16/2017 for shortness of breath associated with hypoxia, elevated troponin, a urinary tract infection, and possibly a pneumonic process. She was stabilized and on 07/21/2017 was extubated. Following that, she was brighter, but later on 07/22/17 she was noted to be more somnolent and slurring her speech. 2. She continues to be significantly encephalopathic and is still on BiPAP. 3. On neurological examination, at this time, she does have a right temporoparietal skull defect, is somnolent but arousable, is oriented to self only, is unable to cooperate for further mental status testing, is significantly dysarthric, is unable to cooperate for language testing, is generally weak with a spastic quadriparesis, slightly more marked on the left than on the right, and has globally diminished deep tendon reflexes that are slightly brisker on the left than the right with extensor plantar responses bilaterally. 4. The CT scan of the brain without contrast reveals atrophy, deep white matter changes, and a right temporoparietal craniotomy defect, but no acute pathology. 5. Laboratory data on admission revealed that she had a significant leukocytosis with a WBC count of 15.7. She was anemic with a hemoglobin of 9.1. She had a left-sided shift on her white blood cell count. Her arterial blood gas revealed a pCO2 of 51 and a pO2 of 116. A chemistry panel revealed a sodium down to 133, potassium elevated to 5.3, BUN elevated to 24, her glucose elevated to 278, AST elevated to 138, ProBNP was greater than 35,000, her albumin was down to 2.0, and her troponin was elevated to 10.3. Her urinalysis revealed 3+ leukocyte esterase, too numerous to count red blood cells and white blood cells, and many urinary bacteria. 6. The EEG revealed an encephalopathy of moderate degree. 7. Her leukocytosis is better but she is now retaining CO2. 8. 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 Recommendations 1. Continue present management. 2. Continue to correct the patient's toxic metabolic imbalances. 3. Correct the patient's anemia to a hemoglobin of greater than 10 G. 4. Observe closely. Ga Dowling M.D., M.S.P.H. GA DOWLING Jul 25, 2017 16:35
[2017-07-25] MEDS ORDERED: Tubing IV Secondary IV ONE (17:31)
[2017-07-25] MEDS ORDERED: NS 275ml ONE (17:31)
--- NOTE | 2017-07-25 19:00 | Progress Note ---
DATE: 07/25/2017 CRITICAL CARE NOTE SUBJECTIVE: Case was discussed with the ICU staff. The patient remains in the intensive care unit. Condition remains critical. Prognosis guarded. The patient has had multiple episodes of cardiac arrhythmia today with episodes of nonsustained ventricular tachycardia and atrial fibrillation with aberrancy. The patient is ventilator dependent, but is presently on BiPAP support. OBJECTIVE: VITAL SIGNS: Blood pressure 95/46 earlier, now 130/60; heart rate 74; respiratory rate 20 to 29; and the patient is afebrile. LUNGS: Exam reveals better breath sounds. Few rhonchi. HEART: Regular rhythm and rate. Normal S1 and S2. Frequent ectopic beats. ABDOMEN: Soft. EXTREMITIES: No edema. LABORATORY DATA: White count 17.5 and hemoglobin 8.8. Sodium 144, potassium 2.7, bicarbonate 32, BUN 15 and creatinine 0.9. Magnesium 1.5. Albumin 1.4. IMPRESSION: 1. Respiratory failure. 2. Hypokalemia. 3. Hypomagnesemia. 4. Paroxysmal ventricular tachycardia. 5. Acute myocardial infarction. 6. Severe protein-calorie malnutrition. 7. Paroxysmal atrial fibrillation. 8. Severe hypomagnesemia. 9. Acute on chronic diastolic congestive heart failure. 10. Healthcare-acquired pneumonia. PLAN: 1. IV magnesium. 2. Potassium per G-tube. 3. Continue full anticoagulation. 4. Antimicrobials. 5. BiPAP support. 6. Diuresis with IV furosemide. 7. Add Aldactone for potassium-sparing effect. 8. Avoid any beta-blockers due to severity of obstructive lung disease. 9. Cautious use of inhaled bronchodilators. 10. Discontinue IV heparin if continued downward troponin trend. Carlos Cruz M.D. DR: TOMER JOB#: [id number] CC: TALYA
[2017-07-25] MEDS: Dyna-Hex 2% Top Sol 2oz TOPIC SCH (20:23)
[2017-07-25] MEDS: Meropenem 1 GM in NS 55 ML IVPB SCH (20:23)
[2017-07-26] VITALS (25 sets, daily range): BP systolic 88–156; BP diastolic 33–67
[2017-07-26] MEDS: Pantoprazole 80 MG in NS 250 ML IV SCH ×2 (01:01→16:00)
[2017-07-26] MEDS: Ipratropium 0.02% Inh Soln 2.5ml UD HHN SCH ×3 (01:11→12:42)
[2017-07-26] MEDS: Levalbuterol Inh UD 1.25mg/0.5ml HHN SCH ×4 (01:12→19:36)
[2017-07-26] MEDS: Heparin 25,000u/D5W 500ml 500 ML IV SCH (04:02)
[2017-07-26 05:21] LABS: HEMATOCRIT 28.7 % (37.0-47.0); HEMOGLOBIN 9.1 G/DL (12.0-16.0); MEAN CORPUSCULAR VOLUME 89 FL (80-99); PLATELET COUNT 264 K/UL (150-450); RED BLOOD COUNT 3.21 M/UL (4.20-5.40); RED CELL DISTRIBUTION WIDTH 22.3 % (11.6-14.8); WHITE BLOOD COUNT 21.4 K/UL (4.8-10.8)
[2017-07-26 05:58] LABS: ALANINE AMINOTRANSFERASE 7 U/L (12-78); ALBUMIN 1.4 G/DL (3.4-5.0); ALBUMIN/GLOBULIN RATIO 0.4 (1.0-2.7); ALKALINE PHOSPHATASE 56 U/L (46-116); ANION GAP 7 mmol/L (5-15); ASPARTATE AMINO TRANSFERASE 16 U/L (15-37); BILIRUBIN,TOTAL 0.3 MG/DL (0.2-1.0); BLOOD UREA NITROGEN 18 mg/dL (7-18); CALCIUM 6.6 MG/DL (8.5-10.1); CARBON DIOXIDE 28 MMOL/L (21-32); CHLORIDE 110 MMOL/L (98-107); POTASSIUM 3.2 MMOL/L (3.5-5.1); SODIUM 145 MMOL/L (136-145)
--- NOTE | 2017-07-26 09:07 | Pulmonolgy Critical Care Note ---
Critical Care - Asmt/Plan Problems: (1) Ventilator dependent Assessment & Plan: Extubated 07/21, placed on BiPAP later the same day for hypoxemia and hypercapnia (2) Pneumonia (3) Elevated troponin (4) Septic shock (5) Demand ischemia of myocardium (6) Transaminitis (7) CVA (cerebral vascular accident) (8) Ischemic cardiomyopathy (9) Alzheimer's dementia (10) CAD s/p PCI (11) diffuse severe gastropathy (12) lives at snf (13) paroxsymal atrial fibrillation (14) Acute on chronic diastolic heart failure (15) NSTEMI (non-ST elevated myocardial infarction) (16) Failure to thrive (17) Functional quadriplegia (18) Generalized weakness (19) S/P percutaneous endoscopic gastrostomy (PEG) tube placement Assessment/Plan: -Continue BiPAP 20/03 --> Check ABG --> Will likely require re-intubation soon if within GOC, awaiting call back from family -Monitor gas exchange -Very cautious TF"s while on BiPAP -will hold now in case she is re-intubated -Atrovent and Xopenex HHN's q6WA and q4 PRN -Abx per ID, F/U repeat CX's -CT C/A/P when patient stable from transport -IV PPI & IV Venofer, monitor for bleeding, F/U GI recs -[facility] per cards -F/U neuro recs -Monitor volumes -->Continue Lasix 40 IV BID -Wound care -FC. continue to discuss GOC, agree with [employer] eval D/W [employer] and RT CC 45 Critical Care - Objective Last 24 Hour Vital Signs Date Time Temp Pulse Resp B/P (MAP) Pulse Ox O2 Delivery O2 Flow Rate FiO2 07/26/17 08:41 75 26 86 Full Face 100 07/26/17 07:21 87 32 89 Bi-pap 100 07/26/17 07:12 76 33 88 Bi-pap 100 07/26/17 07:10 76 33 88 Full Face 100 07/26/17 07:00 80 32 130/49 90 Bi-pap 100 07/26/17 06:00 82 32 123/41 92 Bi-pap 100 07/26/17 05:00 82 31 156/66 92 Bi-pap 100 07/26/17 04:55 89 35 90 Full Face 100 07/26/17 04:00 100 07/26/17 04:00 97.4 87 40 127/67 92 Bi-pap 100 07/26/17 04:00 93 07/26/17 03:09 89 30 93 Full Face 100 07/26/17 03:00 88 35 111/41 93 Bi-pap 100 07/26/17 02:00 84 38 117/52 92 Bi-pap 100 07/26/17 01:15 81 39 96 Bi-pap 100 07/26/17 01:09 80 32 94 Bi-pap 100 07/26/17 01:09 82 31 94 Full Face 100 07/26/17 01:00 81 36 104/57 94 Bi-pap 100 07/26/17 00:00 80 07/26/17 00:00 97.7 81 36 111/50 93 Bi-pap 100 07/25/17 23:00 81 29 92 Full Face 100 07/25/17 23:00 78 30 112/48 92 Bi-pap 100 07/25/17 22:00 77 31 112/46 92 Bi-pap 100 07/25/17 21:15 76 31 88 Full Face 100 07/25/17 21:00 78 35 117/44 93 Bi-pap 100 07/25/17 20:26 85 131/82 07/25/17 20:00 100 07/25/17 20:00 97.5 96 35 131/62 92 Bi-pap 100 07/25/17 20:00 110 07/25/17 19:34 83 32 91 Bi-pap 100 07/25/17 19:27 92 37 89 Bi-pap 100 07/25/17 19:03 91 36 89 Full Face 100 07/25/17 19:00 88 26 119/60 98 Bi-pap 100 07/25/17 18:00 97.4 85 26 103/50 93 Bi-pap 100 07/25/17 17:11 80 31 92 Full Face 100 07/25/17 17:00 85 30 132/61 91 Bi-pap 100 07/25/17 16:00 84 07/25/17 16:00 100 07/25/17 16:00 97.5 81 34 116/53 89 Bi-pap 100 07/25/17 15:42 81 21 94 Full Face 100 07/25/17 15:00 87 33 101/65 92 Bi-pap 100 07/25/17 14:00 67 26 108/74 98 Bi-pap 100 07/25/17 13:53 78 27 100 Bi-pap 100 07/25/17 13:28 75 34 91 Bi-pap 100 07/25/17 13:27 86 20 92 Full Face 100 07/25/17 13:00 71 28 130/72 96 Bi-pap 100 07/25/17 12:00 71 07/25/17 12:00 97.5 87 31 133/61 98 Bi-pap 100 07/25/17 12:00 100 07/25/17 11:02 73 20 95 Full Face 100 07/25/17 11:00 80 27 103/57 97 Bi-pap 100 07/25/17 10:00 75 31 129/67 100 Bi-pap 100 07/25/17 09:23 89 20 100 Full Face 80 07/25/17 09:19 87 118/62 07/25/17 09:00 88 27 118/62 100 Bi-pap 100 Status: obtunded Condition: critical HEENT: atraumatic, normocephalic, other - BiPAP Lungs: clear - but distant Heart: HR/BP stable Abdomen: soft, non-tender, active bowel sounds, other - GT Extremities: no C/C/E Micro: Microbiology Date/Time Source Procedure Growth Status 07/24/17 10:50 Blood Blood Culture - Preliminary NO GROWTH AFTER 24 HOURS Resulted 07/24/17 10:40 Blood Blood Culture - Preliminary NO GROWTH AFTER 24 HOURS Resulted 07/24/17 10:00 Urine,Clean Catch Urine Culture - Preliminary Yeast Species Resulted Critical Care - Subjective ROS Limited/Unobtainable: Yes ICU Day: 11 Intubation Day: N/A - BiPAP Interval Events: CT not done, remains on BiPAP, SaO2 high 80s No cough, net + fluid balance despite diuretics Afebrile but WCt increased, no diarrhea, no F/C Condition: critical IV Access: PICC EKG Rhythm: Sinus Rhythm FI02: 100 Vent Support Breath Rate: 16 Vent Support Mode: CPAP Vent Tidal Volume: 500 Sputum Amount: None PEEP: 5.0 PIP: 14 Drips: [facility] Tube Feeding Amount: 30 I&O: Intake and Output 07/25/17 07/26/17 19:00 07:00 Intake Total 1086.205 ml 1188.875 ml Output Total 510 ml 310 ml Balance 576.205 ml 878.875 ml IV Total 726.205 ml 798.875 ml Tube Feeding 360 ml 360 ml Other 30 ml Output Urine Total 510 ml 310 ml ET-Tube: 7.5 ET Position: 23 Labs: Laboratory Tests Test 07/25/17 09:00 07/25/17 10:30 07/25/17 16:08 07/26/17 04:00 Arterial Blood pH 7.367 (7.350-7.450) Arterial Blood Partial Pressure CO2 48.3 mmHg (35.0-45.0) H Arterial Blood Partial Pressure O2 118.4 mmHg (75.0-100.0) H Arterial Blood HCO3 27.1 mmol/L (22.0-26.0) H Arterial Blood Oxygen Saturation 97.4 % (92.0-98.0) Arterial Blood Base Excess 1.4 Jamie Test Positive Activated Partial Thromboplast Time 84 SEC (23-33) H 77 SEC (23-33) H 72 SEC (23-33) H White Blood Count 21.4 K/UL (4.8-10.8) H Red Blood Count 3.21 M/UL (4.20-5.40) L Hemoglobin 9.1 G/DL (12.0-16.0) L Hematocrit 28.7 % (37.0-47.0) L Mean Corpuscular Volume 89 FL (80-99) Mean Corpuscular Hemoglobin 28.2 PG (27.0-31.0) Mean Corpuscular Hemoglobin Concent 31.6 G/DL (32.0-36.0) L Red Cell Distribution Width 22.3 % (11.6-14.8) H Platelet Count 264 K/UL (150-450) Mean Platelet Volume 9.2 FL (6.5-10.1) Neutrophils (%) (Auto) % (45.0-75.0) Lymphocytes (%) (Auto) % (20.0-45.0) Monocytes (%) (Auto) % (1.0-10.0) Eosinophils (%) (Auto) % (0.0-3.0) Basophils (%) (Auto) % (0.0-2.0) Differential Total Cells Counted 100 Neutrophils % (Manual) 94 % (45-75) H Lymphocytes % (Manual) 3 % (20-45) L Monocytes % (Manual) 3 % (1-10) Eosinophils % (Manual) 0 % (0-3) Basophils % (Manual) 0 % (0-2) Band Neutrophils 0 % (0-8) Platelet Estimate Adequate Platelet Morphology Normal Sodium Level 145 MMOL/L (136-145) Potassium Level 3.2 MMOL/L (3.5-5.1) L Chloride Level 110 MMOL/L (98-107) H Carbon Dioxide Level 28 MMOL/L (21-32) Anion Gap 7 mmol/L (5-15) Blood Urea Nitrogen 18 mg/dL (7-18) Creatinine 1.0 MG/DL (0.55-1.30) Estimat Glomerular Filtration Rate mL/min (>60) Glucose Level 208 MG/DL (74-106) H Calcium Level 6.6 MG/DL (8.5-10.1) L Total Bilirubin 0.3 MG/DL (0.2-1.0) Aspartate Amino Transf (AST/SGOT) 16 U/L (15-37) Alanine Aminotransferase (ALT/SGPT) 7 U/L (12-78) L Alkaline Phosphatase 56 U/L (46-116) Troponin I 0.438 ng/mL (0.000-0.056) Pro-B-Type Natriuretic Peptide 81912 pg/mL (0-125) H Total Protein 5.1 G/DL (6.4-8.2) L Albumin 1.4 G/DL (3.4-5.0) L Globulin 3.7 g/dL Albumin/Globulin Ratio 0.4 (1.0-2.7) L Test 07/26/17 08:18 Vancomycin Level Trough Pending FRANCOIS ZUNIGA M.D. Jul 26, 2017 09:07
[2017-07-26] MEDS: Spironolactone 25mg tab NG SCH (09:19)
[2017-07-26] MEDS: Aspirin Baby 81mg NG SCH (09:19)
[2017-07-26] MEDS: Metoprolol Tartrate 12.5mg TAB ORAL SCH ×2 (09:19→20:58)
[2017-07-26] MEDS: Meropenem 1 GM in NS 55 ML IVPB SCH ×2 (09:20→20:55)
[2017-07-26] MEDS ORDERED: Sterile Water Irrig 1000ml IRRIG ONE (10:21)
[2017-07-26] MEDS ORDERED: Tubing IV Secondary IV ONE ×2 (10:21→15:32)
[2017-07-26] MEDS ORDERED: Midazolam 2mg/2ml Inj IVP ONE (10:30)
[2017-07-26] MEDS ORDERED: fentaNYL 100 mcg/2 mL IV ONE (10:30)
--- NOTE | 2017-07-26 11:01 | General Progress Note ---
Assessment/Plan Problem List: (1) Respiratory failure ICD Codes: J96.90 - Respiratory failure, unspecified, unspecified whether with hypoxia or hypercapnia SNOMED: 015381894 (2) Failure to thrive SNOMED: 60540272 (3) NSTEMI (non-ST elevated myocardial infarction) ICD Codes: I21.4 - Non-ST elevation (NSTEMI) myocardial infarction SNOMED: 989934507 (4) Transaminitis ICD Codes: R74.0 - Nonspecific elevation of levels of transaminase and lactic acid dehydrogenase [LDH] SNOMED: 194199106 (5) Anemia ICD Codes: D64.9 - Anemia, unspecified SNOMED: 185508395 (6) Elevated troponin ICD Codes: R74.8 - Abnormal levels of other serum enzymes SNOMED: 657982961, 375763957 Assessment/Plan Assessment - respiratory failure - dysphagia, s/p prior GJ tube >> now changed to GT - UGIB - no plans for EGD at this time due to CT - NSTEMI - AMS - Anemia - OB stool positive Recommendations EGD to be scheduled pending cardiac clearance, will consider replacement of GJ tube if necessary. GTF monitor H&H closely, stable last few days cardiology f/u PPI q12 abx fu labs Subjective ROS Limited/Unobtainable: No Allergies: Coded Allergies: No Known Allergies (Unverified , 05/25/13) Subjective just got intubated Objective Last 24 Hour Vital Signs Date Time Temp Pulse Resp B/P (MAP) Pulse Ox O2 Delivery O2 Flow Rate FiO2 07/26/17 10:00 68 36 129/59 90 Bi-pap 100 07/26/17 09:19 77 119/54 07/26/17 09:00 81 36 119/54 90 Bi-pap 100 07/26/17 08:41 75 26 86 Full Face 100 07/26/17 08:00 100 07/26/17 08:00 80 07/26/17 08:00 97.2 82 33 119/54 89 Bi-pap 100 07/26/17 07:21 87 32 89 Bi-pap 100 07/26/17 07:12 76 33 88 Bi-pap 100 07/26/17 07:10 76 33 88 Full Face 100 07/26/17 07:00 80 32 130/49 90 Bi-pap 100 07/26/17 06:00 82 32 123/41 92 Bi-pap 100 07/26/17 05:00 82 31 156/66 92 Bi-pap 100 07/26/17 04:55 89 35 90 Full Face 100 07/26/17 04:00 100 07/26/17 04:00 97.4 87 40 127/67 92 Bi-pap 100 07/26/17 04:00 93 07/26/17 03:09 89 30 93 Full Face 100 07/26/17 03:00 88 35 111/41 93 Bi-pap 100 07/26/17 02:00 84 38 117/52 92 Bi-pap 100 07/26/17 01:15 81 39 96 Bi-pap 100 07/26/17 01:09 80 32 94 Bi-pap 100 07/26/17 01:09 82 31 94 Full Face 100 07/26/17 01:00 81 36 104/57 94 Bi-pap 100 07/26/17 00:00 80 07/26/17 00:00 97.7 81 36 111/50 93 Bi-pap 100 07/25/17 23:00 81 29 92 Full Face 100 07/25/17 23:00 78 30 112/48 92 Bi-pap 100 07/25/17 22:00 77 31 112/46 92 Bi-pap 100 07/25/17 21:15 76 31 88 Full Face 100 07/25/17 21:00 78 35 117/44 93 Bi-pap 100 07/25/17 20:26 85 131/82 07/25/17 20:00 100 07/25/17 20:00 97.5 96 35 131/62 92 Bi-pap 100 07/25/17 20:00 110 07/25/17 19:34 83 32 91 Bi-pap 100 07/25/17 19:27 92 37 89 Bi-pap 100 07/25/17 19:03 91 36 89 Full Face 100 07/25/17 19:00 88 26 119/60 98 Bi-pap 100 07/25/17 18:00 97.4 85 26 103/50 93 Bi-pap 100 07/25/17 17:11 80 31 92 Full Face 100 07/25/17 17:00 85 30 132/61 91 Bi-pap 100 07/25/17 16:00 84 07/25/17 16:00 100 07/25/17 16:00 97.5 81 34 116/53 89 Bi-pap 100 07/25/17 15:42 81 21 94 Full Face 100 07/25/17 15:00 87 33 101/65 92 Bi-pap 100 07/25/17 14:00 67 26 108/74 98 Bi-pap 100 07/25/17 13:53 78 27 100 Bi-pap 100 07/25/17 13:28 75 34 91 Bi-pap 100 07/25/17 13:27 86 20 92 Full Face 100 07/25/17 13:00 71 28 130/72 96 Bi-pap 100 07/25/17 12:00 71 07/25/17 12:00 97.5 87 31 133/61 98 Bi-pap 100 07/25/17 12:00 100 07/25/17 11:02 73 20 95 Full Face 100 07/25/17 11:00 80 27 103/57 97 Bi-pap 100 Intake and Output 07/25/17 07/26/17 19:00 07:00 Intake Total 1086.205 ml 1188.875 ml Output Total 510 ml 310 ml Balance 576.205 ml 878.875 ml IV Total 726.205 ml 798.875 ml Tube Feeding 360 ml 360 ml Other 30 ml Output Urine Total 510 ml 310 ml Laboratory Tests 07/25/17 16:08: Activated Partial Thromboplast Time 77H 07/26/17 04:00: Activated Partial Thromboplast Time 72H, White Blood Count 21.4H, Red Blood Count 3.21L, Hemoglobin 9.1L, Hematocrit 28.7L, Mean Corpuscular Volume 89, Mean Corpuscular Hemoglobin 28.2, Mean Corpuscular Hemoglobin Concent 31.6L, Red Cell Distribution Width 22.3H, Platelet Count 264, Mean Platelet Volume 9.2 , Neutrophils (%) (Auto) , Lymphocytes (%) (Auto) , Monocytes (%) (Auto) , Eosinophils (%) (Auto) , Basophils (%) (Auto) , Differential Total Cells Counted 100, Neutrophils % (Manual) 94H, Lymphocytes % (Manual) 3L, Monocytes % (Manual) 3, Eosinophils % (Manual) 0, Basophils % (Manual) 0, Band Neutrophils 0 , Platelet Estimate Adequate, Platelet Morphology Normal, Sodium Level 145, Potassium Level 3.2L, Chloride Level 110H, Carbon Dioxide Level 28, Anion Gap 7 , Blood Urea Nitrogen 18, Creatinine 1.0, Estimat Glomerular Filtration Rate , Glucose Level 208H, Calcium Level 6.6L, Total Bilirubin 0.3, Aspartate Amino Transf (AST/SGOT) 16, Alanine Aminotransferase (ALT/SGPT) 7L, Alkaline Phosphatase 56, Troponin I 0.438H, Pro-B-Type Natriuretic Peptide 81774O, Total Protein 5.1L, Albumin 1.4L, Globulin 3.7, Albumin/Globulin Ratio 0.4L 07/26/17 08:18: Vancomycin Level Trough 23.2H 07/26/17 09:07: Arterial Blood pH 7.238*L, Arterial Blood Partial Pressure CO2 74.3*H, Arterial Blood Partial Pressure O2 56.6L, Arterial Blood HCO3 31.0H, Arterial Blood Oxygen Saturation 84.7L, Arterial Blood Base Excess 2.3, Jamie Test Positive Height (Feet): 5 Height (Inches): 2.00 Weight (Pounds): 110 General Appearance: lethargic EENT: normal ENT inspection Neck: supple Cardiovascular: normal rate Respiratory/Chest: decreased breath sounds Abdomen: normal bowel sounds, non tender, soft Extremities: non-tender MITUL JUAREZ Jul 26, 2017 11:01
--- NOTE | 2017-07-26 11:21 | General Progress Note ---
Progress Note Progress Note Patient wih worsening respiratory status, acidosis and oxygenation. Intubated @ bedside by me. She was given fentanyl 25 mcg IV and Versed 1 mg IV x 1. Vocal cords were visualized with a MAC 3 blade and patient was intubated with a 7.5F ETT on first attempt. There were B BS and color change was noted. A confirmatory CXR is pending. Subsequently she was stable on the vent. There were no apparent complications. FRANCOIS ZUNIGA M.D. Jul 26, 2017 11:21
--- NOTE | 2017-07-26 11:22 | Diagnostic Imaging Report ---
Indication: Respiratory failure. ET tube placement. Technique: XRAY Chest 1v Comparison: 07/24/2017 Findings: Interval endotracheal intubation. ET tube tip 1.9 cm above the dino. Right arm PICC line has its catheter tip at the cavoatrial junction. There is evidence of prior coronary arterial stenting. Heart size and mediastinal contours are stable. Extensive bilateral airspace opacities with small bilateral pleural effusions. Slight interval worsening of aeration of the right lung compared to the prior exam. There is no pneumothorax. No acute osseous abnormality is seen. Impression: Interval endotracheal intubation. ET tube tip 1.9 cm above the dino. Persistent extensive bilateral airspace opacities and bilateral pleural effusions with slight worsening of aeration of the right lower lung compared to the prior exam. No pneumothorax.
--- NOTE | 2017-07-26 14:54 | Infectious Diseases Prog Note ---
Assessment/Plan Assessment/Plan ASSESSMENT AND PLAN: 1. e.coli uti, mrsa uti, pna, sc-negative, klebsiella/e.coli/strep g-tube infection, sepsis, legionella negative, respiratory failure/vent, re-intubated leukocytosis worse, ? c.diff., ? fungemia, ? abdominal/pelvic abscess, thu albicans/fungal uti - check surveillance cultures, ct scan, labs and chest x-ray - vancomycin and meropenem, flagyl and diflucan - icu and supportive care - d/w RN - cultures noted 2. The patient has severe anemia. 3. Respiratory failure, on ventilator. 4. Dysphagia, on gastrostomy tube. 5. Skin care protocol. Wounds were reviewed. They do not look acutely infected. 6. Hypertension. 7. Cardiomyopathy. 8. CVA. 9. Coronary artery disease. 10. Percutaneous coronary intervention of the left anterior descending. 11. Atrial fibrillation. 12. Alzheimer's. 13. Dementia. 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 15. Blood pressure treatment for hypertension per primary. 16. Allergies are negative. 17. Family number is noncontributory. 18. Social history is negative. 19. MAR was noted. 20. Case was discussed with RN. 21. Continue treatment per primary consultants. 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, vre colonization and isolation Subjective Constitutional: Reports: other - re-intubated , Denies: fever HEENT: Reports: congestion Respiratory: Reports: shortness of breath Cardiovascular: Reports: other - no pressors, Denies: chest pain Gastrointestinal/Abdominal: Denies: nausea, vomiting, diarrhea Genitourinary: Reports: other - + blake Neurologic: Denies: headache Psychiatric: Denies: depression Skin: Denies: rash Hematologic: Denies: bleeding Musculoskeletal: Denies: pain Allergies: Coded Allergies: No Known Allergies (Unverified , 05/25/13) Objective Vital Signs Last 24 Hour Vital Signs Date Time Temp Pulse Resp B/P (MAP) Pulse Ox O2 Delivery O2 Flow Rate FiO2 07/26/17 14:00 72 24 117/62 100 Mechanical Ventilator 90 07/26/17 13:00 69 33 108/43 100 Mechanical Ventilator 07/26/17 12:55 79 22 90 07/26/17 12:54 80 22 100 Mechanical Ventilator 100 07/26/17 12:42 73 27 100 Mechanical Ventilator 100 07/26/17 12:04 100 07/26/17 12:00 97.4 67 26 106/62 100 Mechanical Ventilator 100 07/26/17 12:00 71 07/26/17 11:08 65 23 100 07/26/17 11:01 100 07/26/17 11:00 65 26 91/48 100 Mechanical Ventilator 100 07/26/17 10:00 68 36 129/59 90 Bi-pap 100 07/26/17 09:19 77 119/54 07/26/17 09:00 81 36 119/54 90 Bi-pap 100 07/26/17 08:41 75 26 86 Full Face 100 07/26/17 08:00 100 07/26/17 08:00 80 07/26/17 08:00 97.2 82 33 119/54 89 Bi-pap 100 07/26/17 07:21 87 32 89 Bi-pap 100 07/26/17 07:12 76 33 88 Bi-pap 100 07/26/17 07:10 76 33 88 Full Face 100 07/26/17 07:00 80 32 130/49 90 Bi-pap 100 07/26/17 06:00 82 32 123/41 92 Bi-pap 100 07/26/17 05:00 82 31 156/66 92 Bi-pap 100 07/26/17 04:55 89 35 90 Full Face 100 07/26/17 04:00 100 07/26/17 04:00 97.4 87 40 127/67 92 Bi-pap 100 07/26/17 04:00 93 07/26/17 03:09 89 30 93 Full Face 100 07/26/17 03:00 88 35 111/41 93 Bi-pap 100 07/26/17 02:00 84 38 117/52 92 Bi-pap 100 07/26/17 01:15 81 39 96 Bi-pap 100 07/26/17 01:09 80 32 94 Bi-pap 100 07/26/17 01:09 82 31 94 Full Face 100 07/26/17 01:00 81 36 104/57 94 Bi-pap 100 07/26/17 00:00 80 07/26/17 00:00 97.7 81 36 111/50 93 Bi-pap 100 07/25/17 23:00 81 29 92 Full Face 100 07/25/17 23:00 78 30 112/48 92 Bi-pap 100 07/25/17 22:00 77 31 112/46 92 Bi-pap 100 07/25/17 21:15 76 31 88 Full Face 100 07/25/17 21:00 78 35 117/44 93 Bi-pap 100 07/25/17 20:26 85 131/82 07/25/17 20:00 100 07/25/17 20:00 97.5 96 35 131/62 92 Bi-pap 100 07/25/17 20:00 110 07/25/17 19:34 83 32 91 Bi-pap 100 07/25/17 19:27 92 37 89 Bi-pap 100 07/25/17 19:03 91 36 89 Full Face 100 07/25/17 19:00 88 26 119/60 98 Bi-pap 100 07/25/17 18:00 97.4 85 26 103/50 93 Bi-pap 100 07/25/17 17:11 80 31 92 Full Face 100 07/25/17 17:00 85 30 132/61 91 Bi-pap 100 07/25/17 16:00 84 07/25/17 16:00 100 07/25/17 16:00 97.5 81 34 116/53 89 Bi-pap 100 07/25/17 15:42 81 21 94 Full Face 100 07/25/17 15:00 87 33 101/65 92 Bi-pap 100 Height (Feet): 5 Height (Inches): 2.00 Weight (Pounds): 110 General Appearance: other - on vent HEENT: normocephalic, atraumatic, anicteric, EOMI, no JVD, other - oral - intubated Respiratory/Chest: crackles/rales, rhonchi - bilaterally Cardiovascular: normal rate, regular rhythm, no gallop/murmur, no JVD Abdomen: normal bowel sounds, soft, non tender, no organomegaly, non distended Genitourinary: other - + blake Extremities: no cyanosis Skin: no rash Neurologic/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 ET tube tip 1.9 cm above the dino. Persistent extensive bilateral airspace opacities and bilateral pleural effusions with slight worsening of aeration of the right lower lung compared to the prior exam. No pneumothorax. Microbiology Date/Time Source Procedure Growth Status 07/24/17 10:50 Blood Blood Culture - Preliminary NO GROWTH AFTER 24 HOURS Resulted 07/17/17 01:20 Wound Gram Stain - Final Complete 07/17/17 01:20 Wound Culture - Final Klebsiella Pneumoniae Escherichia Coli Enterococcus Faecalis Complete 07/22/17 01:10 Sputum Induced Gram Stain - Final Complete 07/22/17 01:10 Sputum Culture - Final Usual Respiratory Noelle Complete 07/17/17 08:00 Stool Clostridium difficile Toxin Assay - Final Complete 07/24/17 10:00 Urine,Clean Catch Urine Culture - Final Thu Albicans Complete 07/16/17 19:30 Rectum VRE Culture - Final Enterococcus Faecalis - Vre Complete Microbiology Date/Time Source Procedure Growth Status 07/24/17 10:50 Blood Blood Culture - Preliminary NO GROWTH AFTER 24 HOURS Resulted 07/24/17 10:40 Blood Blood Culture - Preliminary NO GROWTH AFTER 24 HOURS Resulted 07/24/17 10:00 Urine,Clean Catch Urine Culture - Final Thu Albicans Complete Laboratory Tests Test 07/25/17 16:08 07/26/17 04:00 07/26/17 08:18 07/26/17 09:07 Activated Partial Thromboplast Time 77 SEC (23-33) H 72 SEC (23-33) H White Blood Count 21.4 K/UL (4.8-10.8) H Red Blood Count 3.21 M/UL (4.20-5.40) L Hemoglobin 9.1 G/DL (12.0-16.0) L Hematocrit 28.7 % (37.0-47.0) L Mean Corpuscular Volume 89 FL (80-99) Mean Corpuscular Hemoglobin 28.2 PG (27.0-31.0) Mean Corpuscular Hemoglobin Concent 31.6 G/DL (32.0-36.0) L Red Cell Distribution Width 22.3 % (11.6-14.8) H Platelet Count 264 K/UL (150-450) Mean Platelet Volume 9.2 FL (6.5-10.1) Neutrophils (%) (Auto) % (45.0-75.0) Lymphocytes (%) (Auto) % (20.0-45.0) Monocytes (%) (Auto) % (1.0-10.0) Eosinophils (%) (Auto) % (0.0-3.0) Basophils (%) (Auto) % (0.0-2.0) Differential Total Cells Counted 100 Neutrophils % (Manual) 94 % (45-75) H Lymphocytes % (Manual) 3 % (20-45) L Monocytes % (Manual) 3 % (1-10) Eosinophils % (Manual) 0 % (0-3) Basophils % (Manual) 0 % (0-2) Band Neutrophils 0 % (0-8) Platelet Estimate Adequate Platelet Morphology Normal Sodium Level 145 MMOL/L (136-145) Potassium Level 3.2 MMOL/L (3.5-5.1) L Chloride Level 110 MMOL/L (98-107) H Carbon Dioxide Level 28 MMOL/L (21-32) Anion Gap 7 mmol/L (5-15) Blood Urea Nitrogen 18 mg/dL (7-18) Creatinine 1.0 MG/DL (0.55-1.30) Estimat Glomerular Filtration Rate mL/min (>60) Glucose Level 208 MG/DL (74-106) H Calcium Level 6.6 MG/DL (8.5-10.1) L Total Bilirubin 0.3 MG/DL (0.2-1.0) Aspartate Amino Transf (AST/SGOT) 16 U/L (15-37) Alanine Aminotransferase (ALT/SGPT) 7 U/L (12-78) L Alkaline Phosphatase 56 U/L (46-116) Troponin I 0.438 ng/mL (0.000-0.056) Pro-B-Type Natriuretic Peptide 31720 pg/mL (0-125) H Total Protein 5.1 G/DL (6.4-8.2) L Albumin 1.4 G/DL (3.4-5.0) L Globulin 3.7 g/dL Albumin/Globulin Ratio 0.4 (1.0-2.7) L Vancomycin Level Trough 23.2 ug/mL (5.0-12.0) H Arterial Blood pH 7.238 (7.350-7.450) Arterial Blood Partial Pressure CO2 74.3 mmHg (35.0-45.0) *H Arterial Blood Partial Pressure O2 56.6 mmHg (75.0-100.0) L Arterial Blood HCO3 31.0 mmol/L (22.0-26.0) H Arterial Blood Oxygen Saturation 84.7 % (92.0-98.0) L Arterial Blood Base Excess 2.3 Jamie Test Positive Test 07/26/17 11:35 Arterial Blood pH 7.303 (7.350-7.450) Arterial Blood Partial Pressure CO2 59.2 mmHg (35.0-45.0) *H Arterial Blood Partial Pressure O2 114.8 mmHg (75.0-100.0) H Arterial Blood HCO3 28.7 mmol/L (22.0-26.0) H Arterial Blood Oxygen Saturation 97.4 % (92.0-98.0) Arterial Blood Base Excess 1.7 Jamie Test Positive Current Medications Medications (Trade) Dose Ordered Sig/Analia Route PRN Reason Start Time Stop Time Status Last Admin Dose Admin Acetaminophen (Tylenol) 650 mg Q4H PRN ORAL fever 07/16/17 22:15 08/15/17 22:14 07/17/17 08:06 Aspirin (ASA) 81 mg DAILY NG 07/19/17 09:00 08/18/17 08:59 07/26/17 09:19 Atorvastatin Calcium (Lipitor) 10 mg BEDTIME ORAL 07/17/17 21:00 08/16/17 20:59 07/25/17 20:24 Chlorhexidine Gluconate (Joana-Hex 2%) 1 applic DAILY@2000 TOPIC 07/23/17 20:00 08/22/17 19:59 07/25/17 20:23 Fluconazole/ Sodium Chloride 100 ml @ 100 mls/hr Q24H IV 07/24/17 18:00 07/31/17 17:59 07/25/17 18:10 Furosemide (Lasix) 40 mg EVERY 12 HOURS IV 07/23/17 21:00 08/22/17 20:59 07/26/17 09:19 Heparin Sodium/ Dextrose 500 ml @ 12.625 mls/ hr adjust per protocol IV 07/25/17 09:45 08/24/17 09:44 07/26/17 04:02 Ipratropium [place] (Atrovent) 500 mcg Q6HRT [facility] 07/21/17 19:00 07/26/17 18:59 07/26/17 12:42 Levalbuterol HCl (Xopenex) 0.63 mg Q6HRT [facility] 07/22/17 13:00 07/27/17 12:59 07/26/17 12:42 Meropenem 1 gm/ Sodium Chloride 55 ml @ 110 mls/hr Q12HR@0800,2000 IVPB 07/25/17 20:00 07/30/17 19:59 07/26/17 09:20 Metoprolol Tartrate (Lopressor) 12.5 mg Q12HR ORAL 07/17/17 21:00 08/16/17 20:59 07/26/17 09:19 Metronidazole 100 ml @ 100 mls/hr Q8HR IVPB 07/24/17 22:00 07/31/17 21:59 07/26/17 13:37 Morphine Sulfate (Morphine Sulfate) 2 mg Q4H PRN IVP PAIN 4-10 07/21/17 14:45 07/28/17 14:44 07/21/17 15:01 Ondansetron HCl (Zofran) 4 mg Q6H PRN IVP Nausea & Vomiting 07/16/17 22:15 08/15/17 22:14 Pantoprazole (Protonix) 40 mg EVERY 12 HOURS IVP 07/26/17 21:00 08/25/17 20:59 UNV Pantoprazole 80 mg/Sodium Chloride 250 ml @ 25 mls/hr Q10H IV 07/21/17 16:00 08/20/17 15:59 07/26/17 01:01 Polyethylene Glycol (Miralax) 17 gm DAILYPRN PRN ORAL Constipation 07/16/17 22:15 08/15/17 22:14 Potassium Chloride 100 ml @ 50 mls/hr ONCE ONCE IVPB 07/26/17 13:30 07/26/17 15:29 Potassium Chloride 100 ml @ 50 mls/hr Q2H IVPB 07/26/17 15:00 07/26/17 18:59 Spironolactone (Aldactone) 25 mg DAILY NG 07/25/17 15:30 08/24/17 15:29 07/26/17 09:19 Vancomycin HCl (Vanco rx to dose) 1 ea DAILY PRN MISC per protocol 07/17/17 00:45 08/16/17 00:44 Vancomycin/Sodium Chloride 250 ml @ 166.667 mls/hr Q24H IVPB 07/27/17 09:00 08/01/17 08:59 ALKASSPOOLES,SALAM Jul 26, 2017 14:54
--- NOTE | 2017-07-26 15:21 | Neurology Progress Note ---
Interim History Interim History Interim History Ms. Loving continues to be encephalopathic. Her mental state continues to wax and wane. She was intubated and is now artificially ventilated since 11 AM today. Her cerebration is slow. She is able to give some yes/no answers. She is disoriented. She is generally weak. She is still unable to cooperate for a detailed neurologic examination. Review of Systems Neuro Review of Systems Unable to obtain. Objective Physical Exam Last Vital Signs Date Time Temp Pulse Resp B/P (MAP) Pulse Ox O2 Delivery O2 Flow Rate FiO2 07/26/17 14:00 72 24 117/62 100 Mechanical Ventilator 90 07/26/17 12:00 97.4 07/24/17 19:29 1.0 Laboratory Tests Test 07/25/17 16:08 07/26/17 04:00 07/26/17 08:18 07/26/17 09:07 Activated Partial Thromboplast Time 77 SEC (23-33) H 72 SEC (23-33) H White Blood Count 21.4 K/UL (4.8-10.8) H Red Blood Count 3.21 M/UL (4.20-5.40) L Hemoglobin 9.1 G/DL (12.0-16.0) L Hematocrit 28.7 % (37.0-47.0) L Mean Corpuscular Volume 89 FL (80-99) Mean Corpuscular Hemoglobin 28.2 PG (27.0-31.0) Mean Corpuscular Hemoglobin Concent 31.6 G/DL (32.0-36.0) L Red Cell Distribution Width 22.3 % (11.6-14.8) H Platelet Count 264 K/UL (150-450) Mean Platelet Volume 9.2 FL (6.5-10.1) Neutrophils (%) (Auto) % (45.0-75.0) Lymphocytes (%) (Auto) % (20.0-45.0) Monocytes (%) (Auto) % (1.0-10.0) Eosinophils (%) (Auto) % (0.0-3.0) Basophils (%) (Auto) % (0.0-2.0) Differential Total Cells Counted 100 Neutrophils % (Manual) 94 % (45-75) H Lymphocytes % (Manual) 3 % (20-45) L Monocytes % (Manual) 3 % (1-10) Eosinophils % (Manual) 0 % (0-3) Basophils % (Manual) 0 % (0-2) Band Neutrophils 0 % (0-8) Platelet Estimate Adequate Platelet Morphology Normal Sodium Level 145 MMOL/L (136-145) Potassium Level 3.2 MMOL/L (3.5-5.1) L Chloride Level 110 MMOL/L (98-107) H Carbon Dioxide Level 28 MMOL/L (21-32) Anion Gap 7 mmol/L (5-15) Blood Urea Nitrogen 18 mg/dL (7-18) Creatinine 1.0 MG/DL (0.55-1.30) Estimat Glomerular Filtration Rate mL/min (>60) Glucose Level 208 MG/DL (74-106) H Calcium Level 6.6 MG/DL (8.5-10.1) L Total Bilirubin 0.3 MG/DL (0.2-1.0) Aspartate Amino Transf (AST/SGOT) 16 U/L (15-37) Alanine Aminotransferase (ALT/SGPT) 7 U/L (12-78) L Alkaline Phosphatase 56 U/L (46-116) Troponin I 0.438 ng/mL (0.000-0.056) Pro-B-Type Natriuretic Peptide 74740 pg/mL (0-125) H Total Protein 5.1 G/DL (6.4-8.2) L Albumin 1.4 G/DL (3.4-5.0) L Globulin 3.7 g/dL Albumin/Globulin Ratio 0.4 (1.0-2.7) L Vancomycin Level Trough 23.2 ug/mL (5.0-12.0) H Arterial Blood pH 7.238 (7.350-7.450) Arterial Blood Partial Pressure CO2 74.3 mmHg (35.0-45.0) *H Arterial Blood Partial Pressure O2 56.6 mmHg (75.0-100.0) L Arterial Blood HCO3 31.0 mmol/L (22.0-26.0) H Arterial Blood Oxygen Saturation 84.7 % (92.0-98.0) L Arterial Blood Base Excess 2.3 Jamie Test Positive Test 07/26/17 11:35 Arterial Blood pH 7.303 (7.350-7.450) Arterial Blood Partial Pressure CO2 59.2 mmHg (35.0-45.0) *H Arterial Blood Partial Pressure O2 114.8 mmHg (75.0-100.0) H Arterial Blood HCO3 28.7 mmol/L (22.0-26.0) H Arterial Blood Oxygen Saturation 97.4 % (92.0-98.0) Arterial Blood Base Excess 1.7 Jamie Test Positive Neurologic Exam Objective PHYSICAL EXAMINATION: GENERAL: She is a well-developed, but lean and ill-looking lady, lying in an intensive care unit bed connected to a ventilator via an fina- tracheal tube. HEAD: Normocephalic with a right temporoparietal skull defect. EENT: Examination benign. NECK: No neck rigidity was observed. NEUROLOGICAL EXAMINATION: MENTAL STATUS EXAMINATION: She was somnolent, but was arousable. When aroused , she followed commands inconsistently. She was able to give a few yes/no answers, but was unable to communicate in an effective manner. SPEECH: She was intubated. LANGUAGE: Could not be tested adequately because of her altered mental state. CRANIAL NERVE EXAMINATION: II: She did blink to threat. III, IV & : The external ocular movements were present and the pupils 3 mm in diameter, equal, round, regular, and reactive to light. V & VII: The corneal reflexes were brisk, but brisker on the right than on the left. She also had mild flattening of the left nasolabial fold. VIII: She seemed to be able to hear well and had no nystagmus. IX & X: The gag reflex was subdued. XI: The sternocleidomastoids and trapezii did function. XII: She did protrude the tongue minimally, but could not protrude it completely. MOTOR SYSTEM: The tone was increased in all four extremities with a mild degree of spasticity, slightly more marked on the left side compared to the right. Examination of muscle mass revealed generalized muscle wasting with bilateral ankle cord contractures. Examination of power was exceedingly difficult to perform because of varying degrees of cooperation. She, however, did move all four extremities on command. SENSORY EXAMINATION: She responded minimally to deep pain. Other sensory modalities could not be tested. REFLEXES: Trace+ on the right and 1+ on the left at the biceps, triceps, brachioradialis, and knees and 0 at both ankles. The plantar responses were extensor bilaterally. COORDINATION, STANCE & GAIT: Could not be tested. Impression/Recommendations Diagnostic Impression 1. Ms. Beatriz Loving is an 87-year-old, lady, of unknown handedness, who does have a past history of hypertension, coronary artery disease, paroxysmal atrial fibrillation, Alzheimer disease, cerebrovascular disease, and right brain surgery for reasons unknown to us, who lives in a residential. She was hospitalized on 07/16/2017 for shortness of breath associated with hypoxia, elevated troponin, a urinary tract infection, and possibly a pneumonic process. She was stabilized and on 07/21/2017 was extubated. Following that, she was brighter, but later on 07/22/17 she was noted to be more somnolent and slurring her speech. 2. She continues to be significantly encephalopathic and had to be intubated and artificially ventilated. 3. On neurological examination, at this time, she does have a right temporoparietal skull defect, is somnolent but arousable, is oriented to self only, is unable to cooperate for further mental status testing, is unable to cooperate for language testing, is generally weak with a spastic quadriparesis, slightly more marked on the left than on the right, and has globally diminished deep tendon reflexes that are slightly brisker on the left than the right with extensor plantar responses bilaterally. 4. The CT scan of the brain without contrast reveals atrophy, deep white matter changes, and a right temporoparietal craniotomy defect, but no acute pathology. 5. Laboratory data on admission revealed that she had a significant leukocytosis with a WBC count of 15.7. She was anemic with a hemoglobin of 9.1. She had a left-sided shift on her white blood cell count. Her arterial blood gas revealed a pCO2 of 51 and a pO2 of 116. A chemistry panel revealed a sodium down to 133, potassium elevated to 5.3, BUN elevated to 24, her glucose elevated to 278, AST elevated to 138, ProBNP was greater than 35,000, her albumin was down to 2.0, and her troponin was elevated to 10.3. Her urinalysis revealed 3+ leukocyte esterase, too numerous to count red blood cells and white blood cells, and many urinary bacteria. 6. The EEG revealed an encephalopathy of moderate degree. 7. Her leukocytosis is worse and she is now retaining CO2. 8. 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 Recommendations 1. Continue present management. 2. Continue to correct the patient's toxic metabolic imbalances. 3. Correct the patient's anemia to a hemoglobin of greater than 10 G. 4. Observe closely. Daniel Dowling M.D., M.S.[facility].H. DANIEL DOWLING Jul 26, 2017 15:21
[2017-07-26] MEDS: Morphine Sulfate 2mg/ml Inj IVP PRN (15:31)
[2017-07-26] MEDS: LORazepam Inj 2mg/ml 1ml IV PRN ×2 (16:21→21:58)
[2017-07-26] MEDS ORDERED: Ipratropium 0.02% Inh Soln 2.5ml UD HHN SCH (19:45)
[2017-07-26] MEDS: Dyna-Hex 2% Top Sol 2oz TOPIC SCH (20:03)
[2017-07-26] MEDS: Pantoprazole Inj IVP SCH (20:56)
[2017-07-27] VITALS (24 sets, daily range): BP systolic 85–132; BP diastolic 35–64
[2017-07-27] MEDS: Ipratropium 0.02% Inh Soln 2.5ml UD HHN SCH ×4 (01:29→20:47)
[2017-07-27] MEDS: Levalbuterol Inh UD 1.25mg/0.5ml HHN SCH ×2 (01:29→07:15)
[2017-07-27] MEDS: LORazepam Inj 2mg/ml 1ml IV PRN ×2 (03:56→10:21)
--- NOTE | 2017-07-27 06:15 | Progress Note ---
DATE: 07/26/2017 CARDIOLOGY PROGRESS NOTE SUBJECTIVE: The patient remains on ventilator support following intubation and mechanical ventilation due to worsening respiratory status earlier this morning. OBJECTIVE: VITAL SIGNS: Blood pressure 118/56, pulse 95, respiratory rate 34, afebrile. LUNGS: Coarse breath sounds. HEART: Regular rhythm and rate. Normal S1 and S2. ABDOMEN: Soft. EXTREMITIES: Trace edema. LABORATORY AND DIAGNOSTIC DATA: White count 21, hemoglobin 9.1. Potassium 3.2, BUN 18, creatinine 1.0. Troponin 0.438. Pro natriuretic peptide 32,000. Albumin 1.4. IMPRESSION: 1. Acute respiratory failure. 2. Paroxysmal ventricular tachycardia. 3. Acute myocardial infarction. 4. Severe protein-calorie malnutrition. 5. Paroxysmal atrial fibrillation. 6. Acute on chronic diastolic congestive heart failure. 7. Healthcare-acquired pneumonia. 8. Sepsis. 9. Leukocytosis. 10. Urinary tract infection. PLAN: 1. Ventilator support. 2. Antimicrobials. 3. Continue anti-platelet therapy with aspirin. 4. Continue statin therapy. 5. Cautious diuresis. 6. Beta-blockade with titration based on clinical parameters. 7. Followup culture results. 8. Hold parameters on antihypertensives for low range of blood pressure readings. Carlos Cruz M.D. DR: Adelina JOB#: [id number] CC:
[2017-07-27 06:58] LABS: HEMATOCRIT 24.3 % (37.0-47.0); HEMOGLOBIN 7.4 G/DL (12.0-16.0); MEAN CORPUSCULAR VOLUME 91 FL (80-99); PLATELET COUNT 197 K/UL (150-450); RED BLOOD COUNT 2.68 M/UL (4.20-5.40); RED CELL DISTRIBUTION WIDTH 22.7 % (11.6-14.8); WHITE BLOOD COUNT 14.9 K/UL (4.8-10.8)
[2017-07-27 07:40] LABS: ALANINE AMINOTRANSFERASE 6 U/L (12-78); ALBUMIN 1.1 G/DL (3.4-5.0); ALBUMIN/GLOBULIN RATIO 0.3 (1.0-2.7); ALKALINE PHOSPHATASE 62 U/L (46-116); ANION GAP 4 mmol/L (5-15); ASPARTATE AMINO TRANSFERASE 15 U/L (15-37); BILIRUBIN,TOTAL 0.3 MG/DL (0.2-1.0); BLOOD UREA NITROGEN 25 mg/dL (7-18); CALCIUM 6.5 MG/DL (8.5-10.1); CARBON DIOXIDE 31 MMOL/L (21-32); CHLORIDE 113 MMOL/L (98-107); CREATININE 1.1 MG/DL (0.55-1.30); POTASSIUM 3.7 MMOL/L (3.5-5.1); SODIUM 148 MMOL/L (136-145)
[2017-07-27] MEDS: Aspirin Baby 81mg NG SCH (09:00)
[2017-07-27] MEDS: Meropenem 1 GM in NS 55 ML IVPB SCH ×2 (09:27→19:58)
[2017-07-27] MEDS: Vancomycin 750mg/NS 250ml IVPB SCH (09:27)
[2017-07-27] MEDS: Spironolactone 25mg tab NG SCH (09:27)
[2017-07-27] MEDS: Pantoprazole Inj IVP SCH ×2 (09:28→21:20)
[2017-07-27] MEDS: Metoprolol Tartrate 12.5mg TAB ORAL SCH ×2 (10:21→21:19)
--- NOTE | 2017-07-27 10:24 | Pulmonolgy Critical Care Note ---
Critical Care - Asmt/Plan Problems: (1) Ventilator dependent Assessment & Plan: Extubated 07/21, re-intubated 07/26 (2) Pneumonia (3) Elevated troponin (4) Septic shock (5) Demand ischemia of myocardium (6) Transaminitis (7) CVA (cerebral vascular accident) (8) Ischemic cardiomyopathy (9) Alzheimer's dementia (10) CAD s/p PCI (11) diffuse severe gastropathy (12) lives at snf (13) paroxsymal atrial fibrillation (14) Acute on chronic diastolic heart failure (15) NSTEMI (non-ST elevated myocardial infarction) (16) Failure to thrive (17) Functional quadriplegia (18) Generalized weakness (19) S/P percutaneous endoscopic gastrostomy (PEG) tube placement Assessment/Plan: -Continue Ventilatory support/settings reviewed --> check repeat ABG -Will likely need tracheostomy, I have spoken with daughter who understands this and states it is within acceptable GOC -Atrovent and Xopenex HHN's q6WA and q4 PRN -Abx per ID, F/U repeat CX's -CT C/A/P when patient stable from transport - D/W RN possibly today -IV PPI & IV Venofer, monitor for bleeding, F/U GI recs -[facility] held per cards -F/U neuro recs -Monitor volumes -->Continue UV lasix as tolerated -Wound care -FC. 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 Will S/O to Fariha Patino, DEEPTI/Mallorie Kim to re-assume care in am CC 45 Critical Care - Objective Last 24 Hour Vital Signs Date Time Temp Pulse Resp B/P (MAP) Pulse Ox O2 Delivery O2 Flow Rate FiO2 07/27/17 09:10 119 42 90 07/27/17 08:00 90 07/27/17 08:00 100.5 126 27 91/64 100 Mechanical Ventilator 07/27/17 07:17 117 38 100 Mechanical Ventilator 90 07/27/17 07:00 115 35 100 Mechanical Ventilator 90 07/27/17 07:00 108 36 90 07/27/17 07:00 97 36 93/57 100 Mechanical Ventilator 90 07/27/17 06:00 117 36 93/57 100 Mechanical Ventilator 90 07/27/17 05:00 99 37 92/52 100 Mechanical Ventilator 90 07/27/17 04:58 99 35 90 07/27/17 04:00 90 07/27/17 04:00 110 07/27/17 04:00 98.8 105 33 105/51 100 Mechanical Ventilator 90 07/27/17 03:25 110 41 90 07/27/17 03:00 118 36 102/36 100 Mechanical Ventilator 90 07/27/17 02:00 120 36 96/36 100 Mechanical Ventilator 90 07/27/17 01:48 118 30 100 Mechanical Ventilator 90 07/27/17 01:31 90 07/27/17 01:30 113 30 100 Mechanical Ventilator 90 07/27/17 01:25 110 41 90 07/27/17 01:00 102 36 123/47 100 Mechanical Ventilator 90 07/27/17 00:11 83 32 90 07/27/17 00:00 79 07/27/17 00:00 97.8 97 30 106/40 100 Mechanical Ventilator 90 07/26/17 23:00 83 30 113/43 100 Mechanical Ventilator 90 07/26/17 22:00 85 21 93/45 100 Mechanical Ventilator 90 07/26/17 21:44 95 35 90 07/26/17 21:00 95 34 118/56 100 Mechanical Ventilator 90 07/26/17 20:58 95 99/33 07/26/17 20:11 95 23 100 Mechanical Ventilator 90 07/26/17 20:10 90 07/26/17 20:09 92 18 100 Mechanical Ventilator 90 07/26/17 20:00 98.0 90 32 99/33 100 Mechanical Ventilator 90 07/26/17 20:00 90 07/26/17 19:50 75 07/26/17 19:30 84 22 90 07/26/17 19:00 80 34 88/63 100 Mechanical Ventilator 90 07/26/17 18:00 75 24 111/47 100 Mechanical Ventilator 90 07/26/17 17:00 75 27 102/43 100 Mechanical Ventilator 90 07/26/17 17:00 77 33 90 07/26/17 16:00 98.0 80 32 118/50 100 Mechanical Ventilator 90 07/26/17 16:00 75 07/26/17 15:16 86 32 90 07/26/17 15:00 86 35 123/64 100 Mechanical Ventilator 90 07/26/17 14:00 72 24 117/62 100 Mechanical Ventilator 90 07/26/17 13:00 69 33 108/43 100 Mechanical Ventilator 90 07/26/17 12:55 79 22 90 07/26/17 12:54 80 22 100 Mechanical Ventilator 100 07/26/17 12:42 73 27 100 Mechanical Ventilator 100 07/26/17 12:04 100 07/26/17 12:00 97.4 67 26 106/62 100 Mechanical Ventilator 100 07/26/17 12:00 71 07/26/17 11:08 65 23 100 07/26/17 11:01 100 07/26/17 11:00 65 26 91/48 100 Mechanical Ventilator 100 Status: awake, other - Intubated Condition: critical HEENT: atraumatic, normocephalic, other - ETT Lungs: rhonchi - scattered coarse Heart: HR/BP unstable, other - ST, BP stable Abdomen: soft, non-tender, active bowel sounds, feeding tube Extremities: edema - 1+ BRIGITTE Micro: Microbiology Date/Time Source Procedure Growth Status 07/24/17 10:50 Blood Blood Culture - Preliminary NO GROWTH AFTER 48 HOURS Resulted 07/24/17 10:40 Blood Blood Culture - Preliminary NO GROWTH AFTER 48 HOURS Resulted Blood Sugars: BS controlled Critical Care - Subjective ROS Limited/Unobtainable: Yes - 1 ICU Day: 12 Intubation Day: Re-intubation D1 Interval Events: Re-intubated by me yesterday, gas exchange improved Tm 100.5, ST, BP stale, WCt better, BUN/Cr stable Hb dropped 9.1 to 7.4 - Hep and ASA held Sedated Condition: critical IV Access: PICC EKG Rhythm: Sinus Tachycardia FI02: 90 Vent Support Breath Rate: 16 Vent Support Mode: AC Vent Tidal Volume: 400 Sputum Amount: Scant PEEP: 5.0 PIP: 32 Secretions: Scant thin secretions Fluids: N/A Drips: Hep held Tube Feeding Amount: 30 Residuals: None I&O: Intake and Output 07/26/17 07/27/17 19:00 07:00 Intake Total 1261.625 ml 1026.001 ml Output Total 325 ml 225 ml Balance 936.625 ml 801.001 ml Free Water 40 ml 150 ml IV Total 781.625 ml 456.001 ml Tube Feeding 360 ml 360 ml Other 80 ml 60 ml Output Urine Total 325 ml 225 ml CXR: B PVC and infiltrates + mod/small effusions ET-Tube: 7.5 ET Position: 27 Labs: Laboratory Tests Test 07/26/17 11:35 07/27/17 04:00 Arterial Blood pH 7.303 (7.350-7.450) Arterial Blood Partial Pressure CO2 59.2 mmHg (35.0-45.0) *H Arterial Blood Partial Pressure O2 114.8 mmHg (75.0-100.0) H Arterial Blood HCO3 28.7 mmol/L (22.0-26.0) H Arterial Blood Oxygen Saturation 97.4 % (92.0-98.0) Arterial Blood Base Excess 1.7 Jamie Test Positive White Blood Count 14.9 K/UL (4.8-10.8) H Red Blood Count 2.68 M/UL (4.20-5.40) L Hemoglobin 7.4 G/DL (12.0-16.0) L Hematocrit 24.3 % (37.0-47.0) L Mean Corpuscular Volume 91 FL (80-99) Mean Corpuscular Hemoglobin 27.7 PG (27.0-31.0) Mean Corpuscular Hemoglobin Concent 30.5 G/DL (32.0-36.0) L Red Cell Distribution Width 22.7 % (11.6-14.8) H Platelet Count 197 K/UL (150-450) Mean Platelet Volume 10.3 FL (6.5-10.1) H Neutrophils (%) (Auto) % (45.0-75.0) Lymphocytes (%) (Auto) % (20.0-45.0) Monocytes (%) (Auto) % (1.0-10.0) Eosinophils (%) (Auto) % (0.0-3.0) Basophils (%) (Auto) % (0.0-2.0) Neutrophils % (Manual) Pending Lymphocytes % (Manual) Pending Platelet Estimate Pending Platelet Morphology Pending Sodium Level 148 MMOL/L (136-145) H Potassium Level 3.7 MMOL/L (3.5-5.1) Chloride Level 113 MMOL/L (98-107) H Carbon Dioxide Level 31 MMOL/L (21-32) Anion Gap 4 mmol/L (5-15) L Blood Urea Nitrogen 25 mg/dL (7-18) H Creatinine 1.1 MG/DL (0.55-1.30) Estimat Glomerular Filtration Rate mL/min (>60) Glucose Level 176 MG/DL (74-106) H Calcium Level 6.5 MG/DL (8.5-10.1) L Total Bilirubin 0.3 MG/DL (0.2-1.0) Aspartate Amino Transf (AST/SGOT) 15 U/L (15-37) Alanine Aminotransferase (ALT/SGPT) 6 U/L (12-78) L Alkaline Phosphatase 62 U/L (46-116) Total Protein 4.5 G/DL (6.4-8.2) L Albumin 1.1 G/DL (3.4-5.0) L Globulin 3.4 g/dL Albumin/Globulin Ratio 0.3 (1.0-2.7) L FRANCOIS ZUNIGA M.D. Jul 27, 2017 10:24
--- NOTE | 2017-07-27 11:41 | General Progress Note ---
Assessment/Plan Problem List: (1) Respiratory failure ICD Codes: J96.90 - Respiratory failure, unspecified, unspecified whether with hypoxia or hypercapnia SNOMED: 256640703 (2) Failure to thrive SNOMED: 88671674 (3) NSTEMI (non-ST elevated myocardial infarction) ICD Codes: I21.4 - Non-ST elevation (NSTEMI) myocardial infarction SNOMED: 955758711 (4) Transaminitis ICD Codes: R74.0 - Nonspecific elevation of levels of transaminase and lactic acid dehydrogenase [LDH] SNOMED: 587443485 (5) Anemia ICD Codes: D64.9 - Anemia, unspecified SNOMED: 509806467 (6) Elevated troponin ICD Codes: R74.8 - Abnormal levels of other serum enzymes SNOMED: 761988482, 870741864 Assessment/Plan Assessment - respiratory failure - dysphagia, s/p prior GJ tube >> now changed to GT - UGIB - no plans for EGD at this time due to DE - NSTEMI - AMS - Anemia - OB stool positive Recommendations EGD to be scheduled pending cardiac clearance, will consider replacement of GJ tube if necessary. GTF monitor H&H closely, stable last few days cardiology f/u PPI q12 abx fu labs Subjective ROS Limited/Unobtainable: No Allergies: Coded Allergies: No Known Allergies (Unverified , 05/25/13) Subjective drop in H&H Objective Last 24 Hour Vital Signs Date Time Temp Pulse Resp B/P (MAP) Pulse Ox O2 Delivery O2 Flow Rate FiO2 07/27/17 11:13 93 35 65 07/27/17 11:07 98.9 07/27/17 10:21 119 111/52 07/27/17 09:10 119 42 90 07/27/17 08:00 118 07/27/17 08:00 90 07/27/17 08:00 100.5 126 27 91/64 100 Mechanical Ventilator 90 07/27/17 07:17 117 38 100 Mechanical Ventilator 07/27/17 07:00 115 35 100 Mechanical Ventilator 90 07/27/17 07:00 108 36 90 07/27/17 07:00 97 36 93/57 100 Mechanical Ventilator 90 07/27/17 06:00 117 36 93/57 100 Mechanical Ventilator 90 07/27/17 05:00 99 37 92/52 100 Mechanical Ventilator 90 07/27/17 04:58 99 35 90 07/27/17 04:00 90 07/27/17 04:00 110 07/27/17 04:00 98.8 105 33 105/51 100 Mechanical Ventilator 90 07/27/17 03:25 110 41 90 07/27/17 03:00 118 36 102/36 100 Mechanical Ventilator 90 07/27/17 02:00 120 36 96/36 100 Mechanical Ventilator 90 07/27/17 01:48 118 30 100 Mechanical Ventilator 90 07/27/17 01:31 90 07/27/17 01:30 113 30 100 Mechanical Ventilator 90 07/27/17 01:25 110 41 90 07/27/17 01:00 102 36 123/47 100 Mechanical Ventilator 90 07/27/17 00:11 83 32 90 07/27/17 00:00 79 07/27/17 00:00 97.8 97 30 106/40 100 Mechanical Ventilator 90 07/26/17 23:00 83 30 113/43 100 Mechanical Ventilator 90 07/26/17 22:00 85 21 93/45 100 Mechanical Ventilator 90 07/26/17 21:44 95 35 90 07/26/17 21:00 95 34 118/56 100 Mechanical Ventilator 90 07/26/17 20:58 95 99/33 07/26/17 20:11 95 23 100 Mechanical Ventilator 90 07/26/17 20:10 90 07/26/17 20:09 92 18 100 Mechanical Ventilator 90 07/26/17 20:00 98.0 90 32 99/33 100 Mechanical Ventilator 90 07/26/17 20:00 90 07/26/17 19:50 75 07/26/17 19:30 84 22 90 07/26/17 19:00 80 34 88/63 100 Mechanical Ventilator 90 07/26/17 18:00 75 24 111/47 100 Mechanical Ventilator 90 07/26/17 17:00 75 27 102/43 100 Mechanical Ventilator 90 07/26/17 17:00 77 33 90 07/26/17 16:00 98.0 80 32 118/50 100 Mechanical Ventilator 90 07/26/17 16:00 75 07/26/17 15:16 86 32 90 07/26/17 15:00 86 35 123/64 100 Mechanical Ventilator 90 07/26/17 14:00 72 24 117/62 100 Mechanical Ventilator 90 07/26/17 13:00 69 33 108/43 100 Mechanical Ventilator 90 07/26/17 12:55 79 22 90 07/26/17 12:54 80 22 100 Mechanical Ventilator 100 07/26/17 12:42 73 27 100 Mechanical Ventilator 100 07/26/17 12:04 100 07/26/17 12:00 97.4 67 26 106/62 100 Mechanical Ventilator 100 07/26/17 12:00 71 Intake and Output 07/26/17 07/27/17 19:00 07:00 Intake Total 1261.625 ml 1026.001 ml Output Total 325 ml 225 ml Balance 936.625 ml 801.001 ml Free Water 40 ml 150 ml IV Total 781.625 ml 456.001 ml Tube Feeding 360 ml 360 ml Other 80 ml 60 ml Output Urine Total 325 ml 225 ml Laboratory Tests 07/27/17 04:00: White Blood Count 14.9H, Red Blood Count 2.68L, Hemoglobin 7.4L, Hematocrit 24.3L, Mean Corpuscular Volume 91, Mean Corpuscular Hemoglobin 27.7, Mean Corpuscular Hemoglobin Concent 30.5L, Red Cell Distribution Width 22.7H, Platelet Count 197, Mean Platelet Volume 10.3H, Neutrophils (%) (Auto) , Lymphocytes (%) (Auto) , Monocytes (%) (Auto) , Eosinophils (%) (Auto) , Basophils (%) (Auto) , Differential Total Cells Counted 100, Neutrophils % ( Manual) 94H, Lymphocytes % (Manual) 3L, Monocytes % (Manual) 3, Eosinophils % ( Manual) 0, Basophils % (Manual) 0, Band Neutrophils 0, Platelet Estimate Adequate, Platelet Morphology Normal, Hypochromasia 1+, Anisocytosis 2+, Sodium Level 148H, Potassium Level 3.7, Chloride Level 113H, Carbon Dioxide Level 31, Anion Gap 4L, Blood Urea Nitrogen 25H, Creatinine 1.1, Estimat Glomerular Filtration Rate , Glucose Level 176H, Calcium Level 6.5L, Total Bilirubin 0.3, Aspartate Amino Transf (AST/SGOT) 15, Alanine Aminotransferase (ALT/SGPT) 6L, Alkaline Phosphatase 62, Total Protein 4.5L, Albumin 1.1L, Globulin 3.4, Albumin /Globulin Ratio 0.3L 07/27/17 10:40: Arterial Blood pH 7.380, Arterial Blood Partial Pressure CO2 46.5H, Arterial Blood Partial Pressure O2 53.2L, Arterial Blood HCO3 27.3H, Arterial Blood Oxygen Saturation 86.5L, Arterial Blood Base Excess 2.0, Jamie Test Positive Height (Feet): 5 Height (Inches): 2.00 Weight (Pounds): 140 General Appearance: lethargic EENT: normal ENT inspection Neck: supple Cardiovascular: tachycardia Respiratory/Chest: decreased breath sounds Abdomen: normal bowel sounds, non tender, soft Extremities: non-tender MITUL JUAREZ Jul 27, 2017 11:41
[2017-07-27] MEDS ORDERED: Miralax 17gm pkt GT PRN (14:15)
--- NOTE | 2017-07-27 15:50 | Neurology Progress Note ---
Interim History Interim History Interim History Ms. Loving continues to be encephalopathic. She was given Ativan for agitation earlier. Her mental state continues to wax and wane. She continues to be intubated and artificially ventilated. Her cerebration is slower. She is unable to communicate. She is generally weak. She is still unable to cooperate for a detailed neurologic examination. Review of Systems Neuro Review of Systems Unable to obtain. Objective Physical Exam Last Vital Signs Date Time Temp Pulse Resp B/P (MAP) Pulse Ox O2 Delivery O2 Flow Rate FiO2 07/27/17 15:35 98 29 60 07/27/17 15:00 93/37 98 Mechanical Ventilator 07/27/17 12:00 97.9 07/24/17 19:29 1.0 Laboratory Tests Test 07/27/17 04:00 07/27/17 10:40 White Blood Count 14.9 K/UL (4.8-10.8) H Red Blood Count 2.68 M/UL (4.20-5.40) L Hemoglobin 7.4 G/DL (12.0-16.0) L Hematocrit 24.3 % (37.0-47.0) L Mean Corpuscular Volume 91 FL (80-99) Mean Corpuscular Hemoglobin 27.7 PG (27.0-31.0) Mean Corpuscular Hemoglobin Concent 30.5 G/DL (32.0-36.0) L Red Cell Distribution Width 22.7 % (11.6-14.8) H Platelet Count 197 K/UL (150-450) Mean Platelet Volume 10.3 FL (6.5-10.1) H Neutrophils (%) (Auto) % (45.0-75.0) Lymphocytes (%) (Auto) % (20.0-45.0) Monocytes (%) (Auto) % (1.0-10.0) Eosinophils (%) (Auto) % (0.0-3.0) Basophils (%) (Auto) % (0.0-2.0) Differential Total Cells Counted 100 Neutrophils % (Manual) 94 % (45-75) H Lymphocytes % (Manual) 3 % (20-45) L Monocytes % (Manual) 3 % (1-10) Eosinophils % (Manual) 0 % (0-3) Basophils % (Manual) 0 % (0-2) Band Neutrophils 0 % (0-8) Platelet Estimate Adequate Platelet Morphology Normal Hypochromasia 1+ Anisocytosis 2+ Sodium Level 148 MMOL/L (136-145) H Potassium Level 3.7 MMOL/L (3.5-5.1) Chloride Level 113 MMOL/L (98-107) H Carbon Dioxide Level 31 MMOL/L (21-32) Anion Gap 4 mmol/L (5-15) L Blood Urea Nitrogen 25 mg/dL (7-18) H Creatinine 1.1 MG/DL (0.55-1.30) Estimat Glomerular Filtration Rate mL/min (>60) Glucose Level 176 MG/DL (74-106) H Calcium Level 6.5 MG/DL (8.5-10.1) L Total Bilirubin 0.3 MG/DL (0.2-1.0) Aspartate Amino Transf (AST/SGOT) 15 U/L (15-37) Alanine Aminotransferase (ALT/SGPT) 6 U/L (12-78) L Alkaline Phosphatase 62 U/L (46-116) Total Protein 4.5 G/DL (6.4-8.2) L Albumin 1.1 G/DL (3.4-5.0) L Globulin 3.4 g/dL Albumin/Globulin Ratio 0.3 (1.0-2.7) L Arterial Blood pH 7.380 (7.350-7.450) Arterial Blood Partial Pressure CO2 46.5 mmHg (35.0-45.0) H Arterial Blood Partial Pressure O2 53.2 mmHg (75.0-100.0) L Arterial Blood HCO3 27.3 mmol/L (22.0-26.0) H Arterial Blood Oxygen Saturation 86.5 % (92.0-98.0) L Arterial Blood Base Excess 2.0 Jamie Test Positive Neurologic Exam Objective PHYSICAL EXAMINATION: GENERAL: She is a well-developed, but lean and ill-looking lady, lying in an intensive care unit bed connected to a ventilator via an fina- tracheal tube. HEAD: Normocephalic with a right temporoparietal skull defect. EENT: Examination benign. NECK: No neck rigidity was observed. NEUROLOGICAL EXAMINATION: MENTAL STATUS EXAMINATION: She was somnolent, but was arousable. When aroused , she was unable to communicate or follow simple commands. SPEECH: She was intubated. LANGUAGE: Could not be tested adequately because of her altered mental state. CRANIAL NERVE EXAMINATION: II: She did blink to threat. III, IV & : The external ocular movements were present and the pupils 3 mm in diameter, equal, round, regular, and reactive to light. V & VII: The corneal reflexes were brisk, but brisker on the right than on the left. She also had mild flattening of the left nasolabial fold. VIII: She seemed to be able to hear well and had no nystagmus. IX & X: The gag reflex was subdued. XI: The sternocleidomastoids and trapezii did function. XII: She did protrude the tongue minimally, but could not protrude it completely. MOTOR SYSTEM: The tone was increased in all four extremities with a mild degree of spasticity, slightly more marked on the left side compared to the right. Examination of muscle mass revealed generalized muscle wasting with bilateral ankle cord contractures. Examination of power was exceedingly difficult to perform because of varying degrees of cooperation. She, however, did move all four extremities on deep pain. SENSORY EXAMINATION: She responded minimally to deep pain. Other sensory modalities could not be tested. REFLEXES: Trace+ on the right and 1+ on the left at the biceps, triceps, brachioradialis, and knees and 0 at both ankles. The plantar responses were extensor bilaterally. COORDINATION, STANCE & GAIT: Could not be tested. Impression/Recommendations Diagnostic Impression 1. Ms. Beatriz Loving is an 87-year-old, lady, of unknown handedness, who does have a past history of hypertension, coronary artery disease, paroxysmal atrial fibrillation, Alzheimer disease, cerebrovascular disease, and right brain surgery for reasons unknown to us, who lives in a detention. She was hospitalized on 07/16/2017 for shortness of breath associated with hypoxia, elevated troponin, a urinary tract infection, and possibly a pneumonic process. She was stabilized and on 07/21/2017 was extubated. Following that, she was brighter, but later on 07/22/17 she was noted to be more somnolent and slurring her speech. 2. She is more encephalopathic and had to be sedated recently. 3. On neurological examination, at this time, she does have a right temporoparietal skull defect, is lethargic but arousable, is unable to cooperate for further mental status testing, is unable to cooperate for language testing, is generally weak with a spastic quadriparesis, slightly more marked on the left than on the right, and has globally diminished deep tendon reflexes that are slightly brisker on the left than the right with extensor plantar responses bilaterally. 4. The CT scan of the brain without contrast reveals atrophy, deep white matter changes, and a right temporoparietal craniotomy defect, but no acute pathology. 5. Laboratory data on admission revealed that she had a significant leukocytosis with a WBC count of 15.7. She was anemic with a hemoglobin of 9.1. She had a left-sided shift on her white blood cell count. Her arterial blood gas revealed a pCO2 of 51 and a pO2 of 116. A chemistry panel revealed a sodium down to 133, potassium elevated to 5.3, BUN elevated to 24, her glucose elevated to 278, AST elevated to 138, ProBNP was greater than 35,000, her albumin was down to 2.0, and her troponin was elevated to 10.3. Her urinalysis revealed 3+ leukocyte esterase, too numerous to count red blood cells and white blood cells, and many urinary bacteria. 6. The EEG revealed an encephalopathy of moderate degree. 7. Her leukocytosis is worse and she is now retaining CO2. 8. 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 She is more encephalopathic today. Recommendations 1. Continue present management. 2. Continue to correct the patient's toxic metabolic imbalances. 3. Correct the patient's anemia to a hemoglobin of greater than 10 G. 4. Observe closely. Daniel Fuller M.D., [place].DANIEL SCANLON Jul 27, 2017 15:50
[2017-07-27] MEDS: Dyna-Hex 2% Top Sol 2oz TOPIC SCH (19:58)
[2017-07-28] VITALS (24 sets, daily range): BP systolic 95–128; BP diastolic 44–98
--- NOTE | 2017-07-28 01:15 | Progress Note ---
DATE: 07/27/2017 CARDIOLOGY PROGRESS NOTE SUBJECTIVE: The patient remains on ventilator support. Consideration for tracheostomy ongoing. The patient continues to have fevers and low-grade blood pressure with tachycardia. Monitor reveals sinus with ventricular arrhythmias. OBJECTIVE: VITAL SIGNS: Blood pressure 107/55, pulse 95, respirations 36, and temperature max 100.5. LUNGS: Orally intubated. Coarse breath sounds. Scattered rhonchi. HEART: Regular rhythm and rate. Normal S1 and S2. ABDOMEN: Soft. EXTREMITIES: Trace edema. LABORATORY DATA: White count 14.9 and hemoglobin 7.4. Sodium 148, potassium 3.7, bicarbonate 31, BUN 25, and creatinine 1.1. Albumin 1.1. ABG, 7.38, 46, and 53. IMPRESSION: 1. Anemia. 2. Respiratory failure. 3. Acute myocardial infarction. 4. Nonsustained ventricular tachycardia. 5. Dehydration. 6. Hypernatremia. 7. Severe protein-calorie malnutrition. 8. Third spacing secondary tachycardia. PLAN: 1. Packed red blood cell transfusion. 2. Cautious diuresis. 3. Discontinue aspirin in view of ongoing GI bleeding and blood loss. 4. Beta-sahra as tolerated by blood pressure parameters. 5. Maintain Aldactone for potassium-sparing effect. Carlos Cruz M.D. DR: TOMER JOB#: [id number] CC:
--- NOTE | 2017-07-28 01:26 | General Progress Note ---
Assessment/Plan Problem List: (1) Pneumonia ICD Codes: J18.9 - Pneumonia, unspecified organism SNOMED: 592194308, 052596249 Qualifiers: Qualified Codes: J18.1 - Lobar pneumonia, unspecified organism (2) Elevated troponin ICD Codes: R74.8 - Abnormal levels of other serum enzymes SNOMED: 530944748, 882740763 (3) Anemia ICD Codes: D64.9 - Anemia, unspecified SNOMED: 014103560 (4) CAD s/p PCI (5) Alzheimer's dementia ICD Codes: G30.9 - Alzheimer's disease, unspecified SNOMED: 16580888 (6) paroxsymal atrial fibrillation (7) Lactic acid acidosis ICD Codes: E87.2 - Acidosis SNOMED: 90394248 (8) Acute respiratory failure with hypoxia and hypercapnia ICD Codes: J96.01 - Acute respiratory failure with hypoxia; J96.02 - Acute respiratory failure with hypercapnia SNOMED: 30590737, 15128283, 781178168 (9) HCAP vs Aspiration pneumonia (10) UTI (urinary tract infection) ICD Codes: N39.0 - Urinary tract infection, site not specified SNOMED: 38467579 (11) Acute on chronic anemia (12) Failure to thrive SNOMED: 97390778 (13) NSTEMI (non-ST elevated myocardial infarction) ICD Codes: I21.4 - Non-ST elevation (NSTEMI) myocardial infarction SNOMED: 270445284 Status: deteriorating Assessment/Plan Continue in ICU intubated again 07/26/17. continue weaning trials per pulm Pulm, cardiology, ID, GI consulted, appreciate rec's s/p extubation on 07/21/17 Cont BiPAP per pulm and wean as tolerated Lasix 40mg IV BID F/u FFWU sent 07/24 given rising WBC Cont Vanco, Meropenem per ID; started flagyl and diflucan F/u cultures Neurology consulted given new onset slurred speech. CT head negative. F/u EEG Trend CBC, BMP, lactate Trend trop/EKG --> trop downtrending F/u TTE --> 45% EF with mild LVDD Cont heparin gtt per cardiology (Eliquis on hold) s/p 1 unit pRBC transfusion 07/17. Gastric lavage on 07/17 showed e/o bleeding but currently no active signs of bleeding Patient will eventually need EGD/colonoscopy to assess for GIB given acute drop in hemoglobin and positive FOBT. However, patient is unstable at the moment given NSTEMI/elevated trops. Awaiting cardiac clearance Continue PPI gtt Continue IV venofer Cont G-tube feedings per GI Supportive care SW consulted to for bioethics eval DVT Prophylaxis: SCD, heparin gtt Code Status: Full per discussion w/ pt's DPOA/daughter Hospital Classification Declaration: Based on this initial evaluation, and depending on the patient's clinical course, I anticipate that this patient will require hospitalization for 2-3 days for acute respiratory faiure, severe sepsis and close respiratory/hemodynamic monitoring. Disposition: Once the patient is stable to leave the hospital, I anticipate the patient will likely be discharged to the following environment: back to SNF At the time of my involvement, the patient's condition was critical with high potential for and/or physiologic deterioration secondary to acute respiratory failure, severe sepsis as delineated in the note above. On the above date of service, I spent a total of 36 minutes in the ICU evaluating, managing, and providing critical care services to this patient, including time spent documenting these activities, counseling patient/family, and coordinating care. Critical care services performed include: Telemetry Review Hemodynamic measurement interpretation Laboratory data review and interpretation BiPAP setting review, management, and adjustment Discussion of care plans with patient, family, and/or surrogate decision makers Discussion of patient's care with primary medical team, surgical team, and/or consulting service Decision to obtain further radiologic evaluation, after consideration of risk/ benefit ratio Review of most recent microbiology results with assessment and modification of antimicrobial coverage Discussion of patient's code status and further advancement towards the ultimate goals of care Plan outlined above discussed with patient/family, PROBATE PARALEGAL, ICU team, and involved physicians/consultants. Time of note may not reflect time of encounter. Subjective Date patient seen: Jul 27, 2017 Time patient seen: 11:00 Allergies: Coded Allergies: No Known Allergies (Unverified , 05/25/13) Subjective - hypoxia yesterday and was reintubated - per discussion with daughter, daughter would like full code - continues to be intubated Objective Last 24 Hour Vital Signs Date Time Temp Pulse Resp B/P (MAP) Pulse Ox O2 Delivery O2 Flow Rate FiO2 07/28/17 01:00 98.8 97 38 112/98 96 Mechanical Ventilator 60 07/28/17 00:00 60 07/28/17 00:00 99.7 106 34 111/91 95 Mechanical Ventilator 60 07/28/17 00:00 106 07/27/17 23:53 97 39 60 07/27/17 23:00 106 39 91/39 96 Mechanical Ventilator 60 07/27/17 22:00 95 36 107/55 96 Mechanical Ventilator 60 07/27/17 21:19 112 112/60 07/27/17 21:00 103 33 112/52 100 Mechanical Ventilator 60 07/27/17 20:58 100 34 100 Mechanical Ventilator 60 07/27/17 20:48 110 36 100 Mechanical Ventilator 90 07/27/17 20:47 110 38 60 07/27/17 20:00 99.1 114 34 132/60 92 Mechanical Ventilator 60 07/27/17 20:00 60 07/27/17 20:00 115 07/27/17 19:00 104 36 132/60 92 Mechanical Ventilator 60 07/27/17 18:00 97 34 95/35 94 Mechanical Ventilator 60 07/27/17 17:16 100 29 60 07/27/17 17:00 102 38 111/57 93 Mechanical Ventilator 60 07/27/17 16:00 98.4 102 39 106/40 92 Mechanical Ventilator 60 07/27/17 16:00 103 07/27/17 16:00 60 07/27/17 15:35 98 29 60 07/27/17 15:00 92 35 93/37 98 Mechanical Ventilator 60 07/27/17 14:00 96 30 87/47 97 Mechanical Ventilator 60 07/27/17 13:00 97 29 86/54 97 Mechanical Ventilator 60 07/27/17 12:40 98 34 100 Mechanical Ventilator 60 07/27/17 12:40 98 34 60 07/27/17 12:30 96 38 100 Mechanical Ventilator 90 07/27/17 12:00 97.9 90 37 99/41 96 Mechanical Ventilator 60 07/27/17 12:00 93 07/27/17 12:00 60 07/27/17 11:13 93 35 65 07/27/17 11:07 98.9 07/27/17 11:00 96 36 85/43 95 Mechanical Ventilator 65 07/27/17 10:21 119 111/52 07/27/17 10:00 139 42 111/52 97 Mechanical Ventilator 90 07/27/17 09:10 119 42 90 07/27/17 09:00 129 30 88/64 100 Mechanical Ventilator 90 07/27/17 08:00 118 07/27/17 08:00 90 07/27/17 08:00 100.5 126 27 91/64 100 Mechanical Ventilator 90 07/27/17 07:17 117 38 100 Mechanical Ventilator 90 07/27/17 07:00 115 35 100 Mechanical Ventilator 90 07/27/17 07:00 108 36 90 07/27/17 07:00 97 36 93/57 100 Mechanical Ventilator 90 07/27/17 06:00 117 36 93/57 100 Mechanical Ventilator 90 07/27/17 05:00 99 37 92/52 100 Mechanical Ventilator 90 07/27/17 04:58 99 35 90 07/27/17 04:00 90 07/27/17 04:00 110 07/27/17 04:00 98.8 105 33 105/51 100 Mechanical Ventilator 90 07/27/17 03:25 110 41 90 07/27/17 03:00 118 36 102/36 100 Mechanical Ventilator 90 07/27/17 02:00 120 36 96/36 100 Mechanical Ventilator 90 07/27/17 01:48 118 30 100 Mechanical Ventilator 90 07/27/17 01:31 90 07/27/17 01:30 113 30 100 Mechanical Ventilator 90 07/27/17 01:25 110 41 90 Intake and Output 07/27/17 07/28/17 19:00 07:00 Intake Total 1025.667 ml 135 ml Output Total 540 ml 165 ml Balance 485.667 ml -30 ml Free Water 160 ml IV Total 505.667 ml 55 ml Tube Feeding 360 ml Other 80 ml Output Urine Total 540 ml 165 ml # Bowel Movements 1 Laboratory Tests 07/27/17 04:00: White Blood Count 14.9H, Red Blood Count 2.68L, Hemoglobin 7.4L, Hematocrit 24.3L, Mean Corpuscular Volume 91, Mean Corpuscular Hemoglobin 27.7, Mean Corpuscular Hemoglobin Concent 30.5L, Red Cell Distribution Width 22.7H, Platelet Count 197, Mean Platelet Volume 10.3H, Neutrophils (%) (Auto) , Lymphocytes (%) (Auto) , Monocytes (%) (Auto) , Eosinophils (%) (Auto) , Basophils (%) (Auto) , Differential Total Cells Counted 100, Neutrophils % ( Manual) 94H, Lymphocytes % (Manual) 3L, Monocytes % (Manual) 3, Eosinophils % ( Manual) 0, Basophils % (Manual) 0, Band Neutrophils 0, Platelet Estimate Adequate, Platelet Morphology Normal, Hypochromasia 1+, Anisocytosis 2+, Sodium Level 148H, Potassium Level 3.7, Chloride Level 113H, Carbon Dioxide Level 31, Anion Gap 4L, Blood Urea Nitrogen 25H, Creatinine 1.1, Estimat Glomerular Filtration Rate , Glucose Level 176H, Calcium Level 6.5L, Total Bilirubin 0.3, Aspartate Amino Transf (AST/SGOT) 15, Alanine Aminotransferase (ALT/SGPT) 6L, Alkaline Phosphatase 62, Total Protein 4.5L, Albumin 1.1L, Globulin 3.4, Albumin /Globulin Ratio 0.3L 07/27/17 10:40: Arterial Blood pH 7.380, Arterial Blood Partial Pressure CO2 46.5H, Arterial Blood Partial Pressure O2 53.2L, Arterial Blood HCO3 27.3H, Arterial Blood Oxygen Saturation 86.5L, Arterial Blood Base Excess 2.0, Jamie Test Positive Height (Feet): 5 Height (Inches): 2.00 Weight (Pounds): 140 General Appearance: other - intubated EENT: PERRL/EOMI Neck: non-tender, normal alignment, supple Cardiovascular: normal peripheral pulses, normal rate, regular rhythm Respiratory/Chest: chest wall non-tender, lungs clear, normal breath sounds Abdomen: normal bowel sounds, non tender, soft Pelvis: normal external exam 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 Jul 28, 2017 01:25
[2017-07-28] MEDS: Ipratropium 0.02% Inh Soln 2.5ml UD HHN SCH ×4 (01:31→19:45)
[2017-07-28 06:24] LABS: HEMATOCRIT 27.4 % (37.0-47.0); HEMOGLOBIN 8.5 G/DL (12.0-16.0); MEAN CORPUSCULAR VOLUME 90 FL (80-99); PLATELET COUNT 141 K/UL (150-450); RED BLOOD COUNT 3.05 M/UL (4.20-5.40); RED CELL DISTRIBUTION WIDTH 19.5 % (11.6-14.8); WHITE BLOOD COUNT 14.3 K/UL (4.8-10.8)
[2017-07-28] MEDS: Meropenem 1 GM in NS 55 ML IVPB SCH (08:00)
[2017-07-28] MEDS: Spironolactone 25mg tab NG SCH (08:44)
[2017-07-28] MEDS: Metoprolol Tartrate 12.5mg TAB ORAL SCH ×2 (08:44→21:19)
[2017-07-28] MEDS: Pantoprazole Inj IVP SCH ×2 (08:44→21:19)
[2017-07-28] MEDS: Vancomycin 750mg/NS 250ml IVPB SCH (09:07)
[2017-07-28 09:08] LABS: ALANINE AMINOTRANSFERASE < 6 U/L (12-78); ALBUMIN 1.2 G/DL (3.4-5.0); ALBUMIN/GLOBULIN RATIO 0.4 (1.0-2.7); ALKALINE PHOSPHATASE 59 U/L (46-116); ANION GAP 4 mmol/L (5-15); ASPARTATE AMINO TRANSFERASE 18 U/L (15-37); BILIRUBIN,TOTAL 0.5 MG/DL (0.2-1.0); BLOOD UREA NITROGEN 31 mg/dL (7-18); CALCIUM 6.4 MG/DL (8.5-10.1); CARBON DIOXIDE 30 MMOL/L (21-32); CHLORIDE 115 MMOL/L (98-107); CREATININE 1.1 MG/DL (0.55-1.30); POTASSIUM 3.8 MMOL/L (3.5-5.1); SODIUM 149 MMOL/L (136-145)
--- NOTE | 2017-07-28 12:22 | General Progress Note ---
Assessment/Plan Problem List: (1) Pneumonia ICD Codes: J18.9 - Pneumonia, unspecified organism SNOMED: 138599480, 279334099 Qualifiers: Qualified Codes: J18.1 - Lobar pneumonia, unspecified organism (2) Elevated troponin ICD Codes: R74.8 - Abnormal levels of other serum enzymes SNOMED: 457535113, 584289187 (3) Anemia ICD Codes: D64.9 - Anemia, unspecified SNOMED: 038711130 (4) CAD s/p PCI (5) Alzheimer's dementia ICD Codes: G30.9 - Alzheimer's disease, unspecified SNOMED: 45816252 (6) paroxsymal atrial fibrillation (7) Lactic acid acidosis ICD Codes: E87.2 - Acidosis SNOMED: 26526529 (8) Acute respiratory failure with hypoxia and hypercapnia ICD Codes: J96.01 - Acute respiratory failure with hypoxia; J96.02 - Acute respiratory failure with hypercapnia SNOMED: 17039603, 41429484, 157305440 (9) HCAP vs Aspiration pneumonia (10) UTI (urinary tract infection) ICD Codes: N39.0 - Urinary tract infection, site not specified SNOMED: 20449480 (11) Acute on chronic anemia (12) Failure to thrive SNOMED: 93736812 (13) NSTEMI (non-ST elevated myocardial infarction) ICD Codes: I21.4 - Non-ST elevation (NSTEMI) myocardial infarction SNOMED: 610284625 (14) Oliguria ICD Codes: R34 - Anuria and oliguria SNOMED: 90852570 (15) Hypernatremia ICD Codes: E87.0 - Hyperosmolality and hypernatremia SNOMED: 78632355 (16) GI bleed ICD Codes: K92.2 - Gastrointestinal hemorrhage, unspecified SNOMED: 10479502 Status: not improved Assessment/Plan given oliguria, will start D5 1/2 NS (due to hypernatremia) for goal urine output of >30cc/hr CT a/p/chest today Continue in ICU intubated again 07/26/17. continue weaning trials per pulm Pulm, cardiology, ID, GI consulted, appreciate rec's s/p extubation on 07/21/17 Cont BiPAP per pulm and wean as tolerated Lasix 40mg IV BID F/u FFWU sent 12/22 given rising WBC Cont Vanco, Meropenem per ID; started flagyl and diflucan F/u cultures Neurology consulted given new onset slurred speech. CT head negative. F/u EEG Trend CBC, BMP, lactate Trend trop/EKG --> trop downtrending F/u TTE --> 45% EF with mild LVDD Cont heparin gtt per cardiology (Eliquis on hold) s/p 1 unit pRBC transfusion 07/17. Gastric lavage on 07/17 showed e/o bleeding but currently no active signs of bleeding Patient will eventually need EGD/colonoscopy to assess for GIB given acute drop in hemoglobin and positive FOBT. However, patient is unstable at the moment given NSTEMI/elevated trops. Awaiting cardiac clearance Continue PPI gtt Continue IV venofer Cont G-tube feedings per GI Supportive care SW consulted to for bioethics eval DVT Prophylaxis: SCD Code Status: Full per discussion w/ pt's DPOA/daughter Hospital Classification Declaration: Based on this initial evaluation, and depending on the patient's clinical course, I anticipate that this patient will require hospitalization for 2-3 days for acute respiratory faiure, severe sepsis and close respiratory/hemodynamic monitoring. Disposition: Once the patient is stable to leave the hospital, I anticipate the patient will likely be discharged to the following environment: back to SNF At the time of my involvement, the patient's condition was critical with high potential for and/or physiologic deterioration secondary to acute respiratory failure, severe sepsis as delineated in the note above. On the above date of service, I spent a total of 36 minutes in the ICU evaluating, managing, and providing critical care services to this patient, including time spent documenting these activities, counseling patient/family, and coordinating care. Critical care services performed include: Telemetry Review Hemodynamic measurement interpretation Laboratory data review and interpretation BiPAP setting review, management, and adjustment Discussion of care plans with patient, family, and/or surrogate decision makers Discussion of patient's care with primary medical team, surgical team, and/or consulting service Decision to obtain further radiologic evaluation, after consideration of risk/ benefit ratio Review of most recent microbiology results with assessment and modification of antimicrobial coverage Discussion of patient's code status and further advancement towards the ultimate goals of care Plan outlined above discussed with patient/family, [employer], ICU team, and involved physicians/consultants. Time of note may not reflect time of encounter. Subjective Date patient seen: Jul 28, 2017 Allergies: Coded Allergies: No Known Allergies (Unverified , 05/25/13) Subjective - attempted to wean today but failed - urine output decreased to 15 cc/hr - high residuals, feeding via gtube held - CT a/p/chest today Objective Last 24 Hour Vital Signs Date Time Temp Pulse Resp B/P (MAP) Pulse Ox O2 Delivery O2 Flow Rate FiO2 07/28/17 11:00 99 35 113/49 98 Mechanical Ventilator 60 07/28/17 11:00 90 38 60 07/28/17 10:00 98 35 112/50 96 Mechanical Ventilator 60 07/28/17 09:27 89 38 60 07/28/17 09:00 96 35 128/50 96 Mechanical Ventilator 60 07/28/17 08:44 113 116/49 07/28/17 08:00 100 07/28/17 08:00 98.4 100 33 110/50 96 Mechanical Ventilator 60 07/28/17 08:00 60 07/28/17 07:49 91 35 98 Mechanical Ventilator 60 07/28/17 07:14 99 38 85 Mechanical Ventilator 90 07/28/17 07:13 90 41 60 07/28/17 07:00 103 27 118/47 96 Mechanical Ventilator 60 07/28/17 06:00 82 36 117/44 96 Mechanical Ventilator 60 07/28/17 05:41 82 35 60 07/28/17 05:00 92 36 103/58 96 Mechanical Ventilator 60 07/28/17 04:00 95 07/28/17 04:00 60 07/28/17 04:00 98.2 88 34 103/58 97 Mechanical Ventilator 60 07/28/17 03:42 82 35 60 07/28/17 03:00 96 33 107/80 98 Mechanical Ventilator 60 07/28/17 02:00 107 35 95/56 97 Mechanical Ventilator 60 07/28/17 01:44 97 34 100 Mechanical Ventilator 60 07/28/17 01:32 97 38 60 07/28/17 01:32 99 36 96 Mechanical Ventilator 90 07/28/17 01:00 98.8 97 38 112/98 96 Mechanical Ventilator 60 07/28/17 00:00 60 07/28/17 00:00 99.7 106 34 111/91 95 Mechanical Ventilator 60 07/28/17 00:00 106 07/27/17 23:53 97 39 60 07/27/17 23:00 106 39 91/39 96 Mechanical Ventilator 60 07/27/17 22:00 95 36 107/55 96 Mechanical Ventilator 60 07/27/17 21:19 112 112/60 07/27/17 21:00 103 33 112/52 100 Mechanical Ventilator 60 07/27/17 20:58 100 34 100 Mechanical Ventilator 60 07/27/17 20:48 110 36 100 Mechanical Ventilator 90 07/27/17 20:47 110 38 60 07/27/17 20:00 99.1 114 34 132/60 92 Mechanical Ventilator 60 07/27/17 20:00 60 07/27/17 20:00 115 07/27/17 19:00 104 36 132/60 92 Mechanical Ventilator 60 07/27/17 18:00 97 34 95/35 94 Mechanical Ventilator 60 07/27/17 17:16 100 29 60 07/27/17 17:00 102 38 111/57 93 Mechanical Ventilator 60 07/27/17 16:00 98.4 102 39 106/40 92 Mechanical Ventilator 60 07/27/17 16:00 103 07/27/17 16:00 60 07/27/17 15:35 98 29 60 07/27/17 15:00 92 35 93/37 98 Mechanical Ventilator 60 07/27/17 14:00 96 30 87/47 97 Mechanical Ventilator 60 07/27/17 13:00 97 29 86/54 97 Mechanical Ventilator 60 07/27/17 12:40 98 34 100 Mechanical Ventilator 60 07/27/17 12:40 98 34 60 07/27/17 12:30 96 38 100 Mechanical Ventilator 90 Intake and Output 07/27/17 07/28/17 19:00 07:00 Intake Total 1025.667 ml 485 ml Output Total 540 ml 315 ml Balance 485.667 ml 170 ml Free Water 160 ml IV Total 505.667 ml 255 ml Tube Feeding 360 ml 120 ml Other 110 ml Output Urine Total 540 ml 315 ml # Bowel Movements 1 Laboratory Tests 07/28/17 06:10: White Blood Count 14.3H, Red Blood Count 3.05L, Hemoglobin 8.5L, Hematocrit 27.4L, Mean Corpuscular Volume 90, Mean Corpuscular Hemoglobin 27.9, Mean Corpuscular Hemoglobin Concent 31.0L, Red Cell Distribution Width 19.5H, Platelet Count 141L, Mean Platelet Volume 10.5H, Neutrophils (%) (Auto) , Lymphocytes (%) (Auto) , Monocytes (%) (Auto) , Eosinophils (%) (Auto) , Basophils (%) (Auto) , Differential Total Cells Counted 100, Neutrophils % ( Manual) 94H, Lymphocytes % (Manual) 5L, Monocytes % (Manual) 1, Eosinophils % ( Manual) 0, Basophils % (Manual) 0, Band Neutrophils 0, Platelet Estimate Adequate, Platelet Morphology Normal, Hypochromasia 1+, Anisocytosis 1+ 07/28/17 08:00: Sodium Level 149H, Potassium Level 3.8, Chloride Level 115H, Carbon Dioxide Level 30, Anion Gap 4L, Blood Urea Nitrogen 31H, Creatinine 1.1, Estimat Glomerular Filtration Rate , Glucose Level 122H, Calcium Level 6.4L, Total Bilirubin 0.5, Aspartate Amino Transf (AST/SGOT) 18, Alanine Aminotransferase ( ALT/SGPT) < 6L, Alkaline Phosphatase 59, Total Protein 4.5L, Albumin 1.2L, Globulin 3.3, Albumin/Globulin Ratio 0.4L 07/28/17 09:02: Arterial Blood pH 7.423, Arterial Blood Partial Pressure CO2 43.7, Arterial Blood Partial Pressure O2 62.6L, Arterial Blood HCO3 27.9H, Arterial Blood Oxygen Saturation 91.3L, Arterial Blood Base Excess 3.1, Jamie Test Positive Height (Feet): 5 Height (Inches): 2.00 Weight (Pounds): 144 General Appearance: other - intubated EENT: PERRL/EOMI Neck: non-tender, normal alignment Cardiovascular: normal peripheral pulses, normal rate, regular rhythm Respiratory/Chest: chest wall non-tender, crackles/rales Abdomen: normal bowel sounds, soft Edema: 2+ Arm (L), 2+ Arm (R) Neurologic: other - responsive to painful stimuli only Skin: normal pigmentation, warm/dry Yesenia Erazo N.P. Jul 28, 2017 12:22
[2017-07-28] MEDS ORDERED: Albuterol/Ipratropium 3ml neb HHN PRN (12:30)
--- NOTE | 2017-07-28 12:36 | Pulmonolgy Critical Care Note ---
Critical Care - Asmt/Plan Assessment/Plan: ASSESSMENT acute hypoxemic respiratory failure requiring intubation s/p extubation s/p reintubation 07/26 sepsis with shock PNA UTI with Staph aureus NSTEMI demand ischemia of myocardium severe diffuse gastropathy upper GI bleeding LBBB NSVT ischemic CM acute on chronic diastolic HF CAD s/p PCI acute toxic metabolic encephalopathy on chronic dementia ( likely due to to sepsis, NSTEMI) hxx of CVA acute anemia requiring blood transfusion lactic acidosis transaminitis -resolved severe protein calorie malnutrition dehydration hypernatremia Alzheimer [id number] functional quadriplegia dysphagia, G tube PLAN OF CARE ICU vent support pulmonary toilet reintubated 07/26 due to difficulties marta weaning from BiPAP and difficulties with handling secretions daughter out of state voiced desire for full code, was informed by dr Porter that likely will need trach, agree with plan surgeon contacted for trach fup with daily CXR and ABG plan for trach abx, ID follows urine cx + E coli MRSA, sputum cx negative, blood cx negative, stool C dif negative, wound cx + Klebsiella,E coli Enterococci off heparin gtt and ASA due to GI bleeding cardio follows serial troponin c/w NSTEMI, troponin trended down not stable for cardiac cath troponin trending down, ECHO with EF 50% and RVSP of 28, mild continue BB as BP allows , statin and cautious diuresis monitor cardiorenal parameters, volumes s/p blood transfusion HH at baseline monitor HH, with goal to keep Hgb above 8 , stool Ob + anemia w/up c/w anemia of chronic disease and has iron deficiency s/p Venofer x5 doses s/p PPI gtt GI follows gastric lavage by GI 07/17 with evidence of GI bleeding per GI will need EGD when stable with prior cardiac clearance G tube feeding, monitor tolerance , strict aspiration precautions PPI IV bid trend LFT likely due to sepsis and shock - down to normal pain management bowel regimen venous Duplex BLE -negative, SCD CT head negative for acute IC pathology neuro follows, EEG abnormal with evidence of moderate encephalopathy, per neuro toxic metabolic encephalopathy superimposed on on old structural brain disease and dementia case discussed and evaluated by supervising physician Critical Care - Objective Last 24 Hour Vital Signs Date Time Temp Pulse Resp B/P (MAP) Pulse Ox O2 Delivery O2 Flow Rate FiO2 07/28/17 11:00 99 35 113/49 98 Mechanical Ventilator 60 07/28/17 10:00 98 35 112/50 96 Mechanical Ventilator 60 07/28/17 09:27 89 38 60 07/28/17 09:00 96 35 128/50 96 Mechanical Ventilator 60 07/28/17 08:44 113 116/49 07/28/17 08:00 100 07/28/17 08:00 98.4 100 33 110/50 96 Mechanical Ventilator 60 07/28/17 08:00 60 07/28/17 07:49 91 35 98 Mechanical Ventilator 60 07/28/17 07:14 99 38 85 Mechanical Ventilator 90 07/28/17 07:13 90 41 60 07/28/17 07:00 103 27 118/47 96 Mechanical Ventilator 60 07/28/17 06:00 82 36 117/44 96 Mechanical Ventilator 60 07/28/17 05:41 82 35 60 07/28/17 05:00 92 36 103/58 96 Mechanical Ventilator 60 07/28/17 04:00 95 07/28/17 04:00 60 07/28/17 04:00 98.2 88 34 103/58 97 Mechanical Ventilator 60 07/28/17 03:42 82 35 60 07/28/17 03:00 96 33 107/80 98 Mechanical Ventilator 60 07/28/17 02:00 107 35 95/56 97 Mechanical Ventilator 60 07/28/17 01:44 97 34 100 Mechanical Ventilator 60 07/28/17 01:32 97 38 60 07/28/17 01:32 99 36 96 Mechanical Ventilator 90 07/28/17 01:00 98.8 97 38 112/98 96 Mechanical Ventilator 60 07/28/17 00:00 60 07/28/17 00:00 99.7 106 34 111/91 95 Mechanical Ventilator 60 07/28/17 00:00 106 07/27/17 23:53 97 39 60 07/27/17 23:00 106 39 91/39 96 Mechanical Ventilator 60 07/27/17 22:00 95 36 107/55 96 Mechanical Ventilator 60 07/27/17 21:19 112 112/60 07/27/17 21:00 103 33 112/52 100 Mechanical Ventilator 60 07/27/17 20:58 100 34 100 Mechanical Ventilator 60 07/27/17 20:48 110 36 100 Mechanical Ventilator 90 07/27/17 20:47 110 38 60 07/27/17 20:00 99.1 114 34 132/60 92 Mechanical Ventilator 60 07/27/17 20:00 60 07/27/17 20:00 115 07/27/17 19:00 104 36 132/60 92 Mechanical Ventilator 60 07/27/17 18:00 97 34 95/35 94 Mechanical Ventilator 60 07/27/17 17:16 100 29 60 07/27/17 17:00 102 38 111/57 93 Mechanical Ventilator 60 07/27/17 16:00 98.4 102 39 106/40 92 Mechanical Ventilator 60 07/27/17 16:00 103 07/27/17 16:00 60 07/27/17 15:35 98 29 60 07/27/17 15:00 92 35 93/37 98 Mechanical Ventilator 60 07/27/17 14:00 96 30 87/47 97 Mechanical Ventilator 60 07/27/17 13:00 97 29 86/54 97 Mechanical Ventilator 60 07/27/17 12:40 98 34 100 Mechanical Ventilator 60 07/27/17 12:40 98 34 60 07/27/17 12:30 96 38 100 Mechanical Ventilator 90 Status: awake Condition: critical HEENT: atraumatic, normocephalic, other - OP with ET in place,intact , Lungs: rhonchi - scattered rhonchi Abdomen: soft, non-tender, feeding tube Extremities: edema Objective: Condition: critical, awake HEENT: atraumatic, normocephalic, OP with ET in place, NGT with TF Lungs: clear Heart: HR/BP stable Abdomen: soft, non-tender Extremities: no C/C/E Critical Care - Subjective ROS Limited/Unobtainable: Yes Interval Events: reintubated 07/26 still with leukocytosis, afebrile no signs of respiratory distress HH up after blood transfusion Condition: critical IV Access: PICC - RUE intact EKG Rhythm: Sinus Rhythm FI02: 60 Vent Support Breath Rate: 16 Vent Support Mode: AC Vent Tidal Volume: 400 Sputum Amount: Scant PEEP: 5.0 PIP: 29 Tube Feeding Amount: 30 I&O: Intake and Output 07/27/17 07/28/17 19:00 07:00 Intake Total 1025.667 ml 485 ml Output Total 540 ml 315 ml Balance 485.667 ml 170 ml Free Water 160 ml IV Total 505.667 ml 255 ml Tube Feeding 360 ml 120 ml Other 110 ml Output Urine Total 540 ml 315 ml # Bowel Movements 1 CXR: 07/26 - Interval endotracheal intubation. ET tube tip 1.9 cm above the dino. Persistent extensive bilateral airspace opacities and bilateral pleural effusions with slight worsening of aeration of the right lower lung compared to the prior exam. No pneumothorax. ET-Tube: 7.5 ET Position: 27 Sukumar (Fariha Quevedo NP Jul 28, 2017 12:36
--- NOTE | 2017-07-28 14:19 | Diagnostic Imaging Report ---
Indication: Chest and abdominal pain. Respiratory failure. Hypoxemia. Sepsis and shock. Technique: Continuous helical transaxial imaging of the abdomen and pelvis was obtained from the lung bases to the pubic symphysis. No IV contrast was administered. Coronal 2-D reformats were also obtained. Study obtained in a Siemens sensation [address] Total Dose length Product (DLP): 1055.[address] Dose Index Volume (CTDIvol): 16.08 mGy Comparison: None Findings: There are extensive bilateral airspace opacities involving both upper and lower lobes. Mild to moderate bilateral pleural effusions are present. Aorta is diffusely calcified. Coronary calcifications are present. Endotracheal tube is in good position just above the dino. Central venous catheter tip is in the SVC. Evaluation the abdomen is limited due to the absence of intravenous contrast material. There is a gastrostomy present which is in good position. The colon is mildly distended. There is no evidence of bowel obstruction. Trace ascites is present. There is no free air. There is no hydronephrosis. Solid organ evaluation is limited on this study. Multiple surgical clips are seen in the epigastric region of the abdomen. The gallbladder is not identified. There is a little left total hip prosthesis. Bryant catheter is noted. Bones are osteopenic. IMPRESSION: Extensive airspace disease within the lungs bilaterally etiology unknown. ARDS and diffuse extensive pneumonia are among the differential considerations. Mild to moderate bilateral pleural effusions Trace ascites Anasarca Atherosclerotic vascular disease Gastrostomy, Bryant catheter, endotracheal tube and central venous catheter is in good position. Left total hip arthroplasty The CT scanner at [facility] is accredited by the [employer] and the scans are performed using dose optimization techniques as appropriate to a performed exam including Automatic Exposure control.
[2017-07-28] MEDS ORDERED: Morphine Sulfate 2mg/ml Inj IVP PRN (14:45)
--- NOTE | 2017-07-28 15:22 | GI Progress Note ---
Assessment/Plan Problems: (1) S/P percutaneous endoscopic gastrostomy (PEG) tube placement ICD Codes: Z93.1 - Gastrostomy status SNOMED: 597603446 (2) Failure to thrive SNOMED: 03952539 (3) Ventilator dependent ICD Codes: Z99.11 - Dependence on respirator [ventilator] status SNOMED: 279346483 (4) NSTEMI (non-ST elevated myocardial infarction) ICD Codes: I21.4 - Non-ST elevation (NSTEMI) myocardial infarction SNOMED: 656372755 (5) Severe sepsis ICD Codes: A41.9 - Sepsis, unspecified organism; R65.20 - Severe sepsis without septic shock SNOMED: 39633071 (6) Elevated troponin ICD Codes: R74.8 - Abnormal levels of other serum enzymes SNOMED: 370696235, 236790750 (7) Anemia ICD Codes: D64.9 - Anemia, unspecified SNOMED: 802848326 (8) Weakness ICD Codes: R53.1 - Weakness SNOMED: 42384693 (9) Transaminitis ICD Codes: R74.0 - Nonspecific elevation of levels of transaminase and lactic acid dehydrogenase [LDH] SNOMED: 912031420 (10) Protein-calorie malnutrition, severe ICD Codes: E43 - Unspecified severe protein-calorie malnutrition SNOMED: 584431286 (11) Dehydration ICD Codes: E86.0 - Dehydration SNOMED: 26093375 (12) Septic shock ICD Codes: A41.9 - Sepsis, unspecified organism; R65.21 - Severe sepsis with septic shock SNOMED: 89701901 Status: not improved Status Narrative Discussed with Dr. Sierra. Assessment/Plan Assessment - respiratory failure - dysphagia, s/p prior GJ tube >> now changed to GT - UGIB - no plans for EGD at this time due to NM - NSTEMI - AMS - Anemia - OB stool positive Recommendations EGD to be scheduled pending cardiac clearance, will consider replacement of GJ tube if necessary. GTF monitor H&H closely, stable last few days cardiology f/u PPI q12 abx fu labs The patient was seen and examined at bedside and all new and available data was reviewed in the patients chart. I agree with the above findings, impression and plan. (Patient seen earlier today. Signature stamp does not reflect patient encounter time.). - Olga Lidia Sierra MD Subjective Subjective limited Objective Last 24 Hour Vital Signs Date Time Temp Pulse Resp B/P (MAP) Pulse Ox O2 Delivery O2 Flow Rate FiO2 07/28/17 15:00 97 33 111/44 96 Mechanical Ventilator 60 07/28/17 14:00 98 33 110/44 95 Mechanical Ventilator 60 07/28/17 13:43 94 34 100 Mechanical Ventilator 60 07/28/17 13:00 96 35 108/45 98 Mechanical Ventilator 60 07/28/17 12:39 86 36 100 Mechanical Ventilator 90 07/28/17 12:38 88 36 60 07/28/17 12:00 98.3 95 32 111/44 95 Mechanical Ventilator 60 07/28/17 12:00 103 07/28/17 12:00 60 07/28/17 11:00 99 35 113/49 98 Mechanical Ventilator 60 07/28/17 11:00 90 38 60 07/28/17 10:00 98 35 112/50 96 Mechanical Ventilator 60 07/28/17 09:27 89 38 60 07/28/17 09:00 96 35 128/50 96 Mechanical Ventilator 60 07/28/17 08:44 113 116/49 07/28/17 08:00 100 07/28/17 08:00 98.4 100 33 110/50 96 Mechanical Ventilator 60 07/28/17 08:00 60 07/28/17 07:49 91 35 98 Mechanical Ventilator 60 07/28/17 07:14 99 38 85 Mechanical Ventilator 90 07/28/17 07:13 90 41 60 07/28/17 07:00 103 27 118/47 96 Mechanical Ventilator 60 07/28/17 06:00 82 36 117/44 96 Mechanical Ventilator 60 07/28/17 05:41 82 35 60 07/28/17 05:00 92 36 103/58 96 Mechanical Ventilator 60 07/28/17 04:00 95 07/28/17 04:00 60 07/28/17 04:00 98.2 88 34 103/58 97 Mechanical Ventilator 60 07/28/17 03:42 82 35 60 07/28/17 03:00 96 33 107/80 98 Mechanical Ventilator 60 07/28/17 02:00 107 35 95/56 97 Mechanical Ventilator 60 07/28/17 01:44 97 34 100 Mechanical Ventilator 60 07/28/17 01:32 97 38 60 07/28/17 01:32 99 36 96 Mechanical Ventilator 90 07/28/17 01:00 98.8 97 38 112/98 96 Mechanical Ventilator 60 07/28/17 00:00 60 07/28/17 00:00 99.7 106 34 111/91 95 Mechanical Ventilator 60 07/28/17 00:00 106 07/27/17 23:53 97 39 60 07/27/17 23:00 106 39 91/39 96 Mechanical Ventilator 60 07/27/17 22:00 95 36 107/55 96 Mechanical Ventilator 60 07/27/17 21:19 112 112/60 07/27/17 21:00 103 33 112/52 100 Mechanical Ventilator 60 07/27/17 20:58 100 34 100 Mechanical Ventilator 60 07/27/17 20:48 110 36 100 Mechanical Ventilator 90 07/27/17 20:47 110 38 60 07/27/17 20:00 99.1 114 34 132/60 92 Mechanical Ventilator 60 07/27/17 20:00 60 07/27/17 20:00 115 07/27/17 19:00 104 36 132/60 92 Mechanical Ventilator 60 07/27/17 18:00 97 34 95/35 94 Mechanical Ventilator 60 07/27/17 17:16 100 29 60 07/27/17 17:00 102 38 111/57 93 Mechanical Ventilator 60 07/27/17 16:00 98.4 102 39 106/40 92 Mechanical Ventilator 60 07/27/17 16:00 103 07/27/17 16:00 60 07/27/17 15:35 98 29 60 Intake and Output 07/27/17 07/28/17 19:00 07:00 Intake Total 1025.667 ml 485 ml Output Total 540 ml 315 ml Balance 485.667 ml 170 ml Free Water 160 ml IV Total 505.667 ml 255 ml Tube Feeding 360 ml 120 ml Other 110 ml Output Urine Total 540 ml 315 ml # Bowel Movements 1 Laboratory Tests Test 07/28/17 06:10 07/28/17 08:00 07/28/17 09:02 White Blood Count 14.3 K/UL (4.8-10.8) H Red Blood Count 3.05 M/UL (4.20-5.40) L Hemoglobin 8.5 G/DL (12.0-16.0) L Hematocrit 27.4 % (37.0-47.0) L Mean Corpuscular Volume 90 FL (80-99) Mean Corpuscular Hemoglobin 27.9 PG (27.0-31.0) Mean Corpuscular Hemoglobin Concent 31.0 G/DL (32.0-36.0) L Red Cell Distribution Width 19.5 % (11.6-14.8) H Platelet Count 141 K/UL (150-450) L Mean Platelet Volume 10.5 FL (6.5-10.1) H Neutrophils (%) (Auto) % (45.0-75.0) Lymphocytes (%) (Auto) % (20.0-45.0) Monocytes (%) (Auto) % (1.0-10.0) Eosinophils (%) (Auto) % (0.0-3.0) Basophils (%) (Auto) % (0.0-2.0) Differential Total Cells Counted 100 Neutrophils % (Manual) 94 % (45-75) H Lymphocytes % (Manual) 5 % (20-45) L Monocytes % (Manual) 1 % (1-10) Eosinophils % (Manual) 0 % (0-3) Basophils % (Manual) 0 % (0-2) Band Neutrophils 0 % (0-8) Platelet Estimate Adequate Platelet Morphology Normal Hypochromasia 1+ Anisocytosis 1+ Sodium Level 149 MMOL/L (136-145) H Potassium Level 3.8 MMOL/L (3.5-5.1) Chloride Level 115 MMOL/L (98-107) H Carbon Dioxide Level 30 MMOL/L (21-32) Anion Gap 4 mmol/L (5-15) L Blood Urea Nitrogen 31 mg/dL (7-18) H Creatinine 1.1 MG/DL (0.55-1.30) Estimat Glomerular Filtration Rate mL/min (>60) Glucose Level 122 MG/DL (74-106) H Calcium Level 6.4 MG/DL (8.5-10.1) L Total Bilirubin 0.5 MG/DL (0.2-1.0) Aspartate Amino Transf (AST/SGOT) 18 U/L (15-37) Alanine Aminotransferase (ALT/SGPT) < 6 U/L (12-78) L Alkaline Phosphatase 59 U/L (46-116) Total Protein 4.5 G/DL (6.4-8.2) L Albumin 1.2 G/DL (3.4-5.0) L Globulin 3.3 g/dL Albumin/Globulin Ratio 0.4 (1.0-2.7) L Arterial Blood pH 7.423 (7.350-7.450) Arterial Blood Partial Pressure CO2 43.7 mmHg (35.0-45.0) Arterial Blood Partial Pressure O2 62.6 mmHg (75.0-100.0) L Arterial Blood HCO3 27.9 mmol/L (22.0-26.0) H Arterial Blood Oxygen Saturation 91.3 % (92.0-98.0) L Arterial Blood Base Excess 3.1 Jamie Test Positive Height (Feet): 5 Height (Inches): 2.00 Weight (Pounds): 144 General Appearance: mild distress Cardiovascular: normal rate Respiratory/Chest: no respiratory distress, other - mech vent Abdominal Exam: soft, GT site - c/d/i Extremities: non-tender [place] Colon NEdda Jul 28, 2017 15:22 MITUL SIERRA Aug 04, 2017 12:21
[2017-07-28] MEDS ORDERED: D5 1/2NS 1,000 ML IV SCH (15:30)
--- NOTE | 2017-07-28 15:39 | Diagnostic Imaging Report ---
Indication: Dyspnea Comparison: 07/26/2017 A single view chest radiograph was obtained. Findings: Extensive bilateral airspace disease demonstrated with marginal improvement. Heart size is stable. Tubes and lines are stable. IMPRESSION: Extensive airspace disease with marginal interval improvement
--- NOTE | 2017-07-28 16:26 | Infectious Diseases Prog Note ---
Assessment/Plan Assessment/Plan ASSESSMENT AND PLAN: 1. e.coli uti, mrsa uti, pna, sc-negative, klebsiella/e.coli/strep g-tube infection, sepsis, legionella negative, respiratory failure/vent, re-intubated leukocytosis worse, ? c.diff., ? fungemia, ? abdominal/pelvic abscess, thu albicans/fungal uti - check surveillance cultures, ct scan, labs and chest x-ray - vancomycin and meropenem, flagyl and diflucan - icu and supportive care - d/w RN - cultures noted 2. The patient has severe anemia. 3. Respiratory failure, on ventilator. 4. Dysphagia, on gastrostomy tube. 5. Skin care protocol. Wounds were reviewed. They do not look acutely infected. 6. Hypertension. 7. Cardiomyopathy. 8. CVA. 9. Coronary artery disease. 10. Percutaneous coronary intervention of the left anterior descending. 11. Atrial fibrillation. 12. Alzheimer's. 13. Dementia. 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 15. Blood pressure treatment for hypertension per primary. 16. Allergies are negative. 17. Family number is noncontributory. 18. Social history is negative. 19. MAR was noted. 20. Case was discussed with RN. 21. Continue treatment per primary consultants. 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, vre colonization and isolation Subjective Constitutional: Reports: other - on vent, Denies: fever HEENT: Reports: congestion Respiratory: Reports: shortness of breath Cardiovascular: Reports: other - no pressors, Denies: chest pain Gastrointestinal/Abdominal: Denies: nausea, vomiting, diarrhea Genitourinary: Reports: other - + blake Neurologic: Reports: weakness, other - alet Psychiatric: Denies: depression Skin: Denies: rash Hematologic: Denies: bleeding Musculoskeletal: Denies: pain Allergies: Coded Allergies: No Known Allergies (Unverified , 05/25/13) Objective Vital Signs Last 24 Hour Vital Signs Date Time Temp Pulse Resp B/P (MAP) Pulse Ox O2 Delivery O2 Flow Rate FiO2 07/28/17 15:50 89 42 60 07/28/17 15:00 97 33 111/44 96 Mechanical Ventilator 60 07/28/17 14:00 98 33 110/44 95 Mechanical Ventilator 60 07/28/17 13:43 94 34 100 Mechanical Ventilator 60 07/28/17 13:00 96 35 108/45 98 Mechanical Ventilator 60 07/28/17 12:39 86 36 100 Mechanical Ventilator 90 07/28/17 12:38 88 36 60 07/28/17 12:00 98.3 95 32 111/44 95 Mechanical Ventilator 60 07/28/17 12:00 103 07/28/17 12:00 60 07/28/17 11:00 99 35 113/49 98 Mechanical Ventilator 60 07/28/17 11:00 90 38 60 07/28/17 10:00 98 35 112/50 96 Mechanical Ventilator 60 07/28/17 09:27 89 38 60 07/28/17 09:00 96 35 128/50 96 Mechanical Ventilator 60 07/28/17 08:44 113 116/49 07/28/17 08:00 100 07/28/17 08:00 98.4 100 33 110/50 96 Mechanical Ventilator 60 07/28/17 08:00 60 07/28/17 07:49 91 35 98 Mechanical Ventilator 60 07/28/17 07:14 99 38 85 Mechanical Ventilator 90 07/28/17 07:13 90 41 60 07/28/17 07:00 103 27 118/47 96 Mechanical Ventilator 60 07/28/17 06:00 82 36 117/44 96 Mechanical Ventilator 60 07/28/17 05:41 82 35 60 07/28/17 05:00 92 36 103/58 96 Mechanical Ventilator 60 07/28/17 04:00 95 07/28/17 04:00 60 07/28/17 04:00 98.2 88 34 103/58 97 Mechanical Ventilator 60 07/28/17 03:42 82 35 60 07/28/17 03:00 96 33 107/80 98 Mechanical Ventilator 60 07/28/17 02:00 107 35 95/56 97 Mechanical Ventilator 60 07/28/17 01:44 97 34 100 Mechanical Ventilator 60 07/28/17 01:32 97 38 60 07/28/17 01:32 99 36 96 Mechanical Ventilator 90 07/28/17 01:00 98.8 97 38 112/98 96 Mechanical Ventilator 60 07/28/17 00:00 60 07/28/17 00:00 99.7 106 34 111/91 95 Mechanical Ventilator 60 07/28/17 00:00 106 07/27/17 23:53 97 39 60 07/27/17 23:00 106 39 91/39 96 Mechanical Ventilator 60 07/27/17 22:00 95 36 107/55 96 Mechanical Ventilator 60 07/27/17 21:19 112 112/60 07/27/17 21:00 103 33 112/52 100 Mechanical Ventilator 60 07/27/17 20:58 100 34 100 Mechanical Ventilator 60 07/27/17 20:48 110 36 100 Mechanical Ventilator 90 07/27/17 20:47 110 38 60 07/27/17 20:00 99.1 114 34 132/60 92 Mechanical Ventilator 60 07/27/17 20:00 60 07/27/17 20:00 115 07/27/17 19:00 104 36 132/60 92 Mechanical Ventilator 60 07/27/17 18:00 97 34 95/35 94 Mechanical Ventilator 60 07/27/17 17:16 100 29 60 07/27/17 17:00 102 38 111/57 93 Mechanical Ventilator 60 Height (Feet): 5 Height (Inches): 2.00 Weight (Pounds): 144 General Appearance: other - on vent HEENT: normocephalic, atraumatic, anicteric, other - oral - intubated Respiratory/Chest: crackles/rales, rhonchi - bilaterally Cardiovascular: normal rate, regular rhythm, no gallop/murmur Abdomen: normal bowel sounds, soft, non tender, no organomegaly, non distended Genitourinary: other - + blake - urine slt cloudy Extremities: no cyanosis, no clubbing Skin: no rash Neurologic/Psychiatric: patient care secretary II-XII 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 ET tube tip 1.9 cm above the dino. Persistent extensive bilateral airspace opacities and bilateral pleural effusions with slight worsening of aeration of the right lower lung compared to the prior exam. No pneumothorax. CT scan: IMPRESSION: Extensive airspace disease within the lungs bilaterally etiology unknown. ARDS and diffuse extensive pneumonia are among the differential considerations. Mild to moderate bilateral pleural effusions Trace ascites Anasarca Atherosclerotic vascular disease Gastrostomy, Blake catheter, endotracheal tube and central venous catheter is in good position. Left total hip arthroplasty Chest x-ray 07/28 - marginal improvement in extensive airspace disease Microbiology Date/Time Source Procedure Growth Status 07/24/17 10:50 Blood Blood Culture - Preliminary NO GROWTH AFTER 72 HOURS Resulted 07/17/17 01:20 Wound Gram Stain - Final Complete 07/17/17 01:20 Wound Culture - Final Klebsiella Pneumoniae Escherichia Coli Enterococcus Faecalis Complete 07/22/17 01:10 Sputum Induced Gram Stain - Final Complete 07/22/17 01:10 Sputum Culture - Final Usual Respiratory Noelle Complete 07/17/17 08:00 Stool Clostridium difficile Toxin Assay - Final Complete 07/24/17 10:00 Urine,Clean Catch Urine Culture - Final Thu Albicans Complete 07/16/17 19:30 Rectum VRE Culture - Final Enterococcus Faecalis - Vre Complete Laboratory Tests Test 07/28/17 06:10 07/28/17 08:00 07/28/17 09:02 White Blood Count 14.3 K/UL (4.8-10.8) H Red Blood Count 3.05 M/UL (4.20-5.40) L Hemoglobin 8.5 G/DL (12.0-16.0) L Hematocrit 27.4 % (37.0-47.0) L Mean Corpuscular Volume 90 FL (80-99) Mean Corpuscular Hemoglobin 27.9 PG (27.0-31.0) Mean Corpuscular Hemoglobin Concent 31.0 G/DL (32.0-36.0) L Red Cell Distribution Width 19.5 % (11.6-14.8) H Platelet Count 141 K/UL (150-450) L Mean Platelet Volume 10.5 FL (6.5-10.1) H Neutrophils (%) (Auto) % (45.0-75.0) Lymphocytes (%) (Auto) % (20.0-45.0) Monocytes (%) (Auto) % (1.0-10.0) Eosinophils (%) (Auto) % (0.0-3.0) Basophils (%) (Auto) % (0.0-2.0) Differential Total Cells Counted 100 Neutrophils % (Manual) 94 % (45-75) H Lymphocytes % (Manual) 5 % (20-45) L Monocytes % (Manual) 1 % (1-10) Eosinophils % (Manual) 0 % (0-3) Basophils % (Manual) 0 % (0-2) Band Neutrophils 0 % (0-8) Platelet Estimate Adequate Platelet Morphology Normal Hypochromasia 1+ Anisocytosis 1+ Sodium Level 149 MMOL/L (136-145) H Potassium Level 3.8 MMOL/L (3.5-5.1) Chloride Level 115 MMOL/L (98-107) H Carbon Dioxide Level 30 MMOL/L (21-32) Anion Gap 4 mmol/L (5-15) L Blood Urea Nitrogen 31 mg/dL (7-18) H Creatinine 1.1 MG/DL (0.55-1.30) Estimat Glomerular Filtration Rate mL/min (>60) Glucose Level 122 MG/DL (74-106) H Calcium Level 6.4 MG/DL (8.5-10.1) L Total Bilirubin 0.5 MG/DL (0.2-1.0) Aspartate Amino Transf (AST/SGOT) 18 U/L (15-37) Alanine Aminotransferase (ALT/SGPT) < 6 U/L (12-78) L Alkaline Phosphatase 59 U/L (46-116) Total Protein 4.5 G/DL (6.4-8.2) L Albumin 1.2 G/DL (3.4-5.0) L Globulin 3.3 g/dL Albumin/Globulin Ratio 0.4 (1.0-2.7) L Arterial Blood pH 7.423 (7.350-7.450) Arterial Blood Partial Pressure CO2 43.7 mmHg (35.0-45.0) Arterial Blood Partial Pressure O2 62.6 mmHg (75.0-100.0) L Arterial Blood HCO3 27.9 mmol/L (22.0-26.0) H Arterial Blood Oxygen Saturation 91.3 % (92.0-98.0) L Arterial Blood Base Excess 3.1 Jamie Test Positive Current Medications Medications (Trade) Dose Ordered Sig/Analia Route PRN Reason Start Time Stop Time Status Last Admin Dose Admin Acetaminophen (Tylenol) 650 mg Q4H PRN ORAL fever 07/16/17 22:15 08/15/17 22:14 07/28/17 00:25 Albuterol/ Ipratropium (Albuterol/ Ipratropium) 3 ml Q4H PRN HHN Shortness of Breath 07/28/17 12:30 08/02/17 12:29 Atorvastatin Calcium (Lipitor) 10 mg BEDTIME GT 07/27/17 21:00 08/16/17 20:59 07/27/17 21:19 Chlorhexidine Gluconate (Joana-Hex 2%) 1 applic DAILY@2000 TOPIC 07/23/17 20:00 08/22/17 19:59 07/27/17 19:58 Dextrose/Sodium Chloride 1,000 ml @ 50 mls/hr Q20H IV 07/28/17 15:30 08/27/17 15:29 07/28/17 15:45 Fluconazole/ Sodium Chloride 100 ml @ 100 mls/hr Q24H IV 07/24/17 18:00 07/31/17 17:59 07/27/17 17:34 Furosemide (Lasix) 40 mg DAILY IV 07/27/17 09:00 08/22/17 20:59 07/28/17 08:43 Ipratropium [place] (Atrovent) 500 mcg Q6HRT HHN 07/27/17 01:00 08/01/17 00:59 07/28/17 12:39 Lorazepam (Ativan 2mg/ml 1ml) 2 mg Q4H PRN IV For Anxiety 07/26/17 16:15 08/02/17 16:14 07/27/17 10:21 Meropenem 1 gm/ Sodium Chloride 55 ml @ 110 mls/hr Q12HR@0800,1999 IVPB 07/25/17 20:00 07/30/17 19:59 07/28/17 08:00 Metoprolol Tartrate (Lopressor) 12.5 mg Q12HR ORAL 07/17/17 21:00 08/16/17 20:59 07/28/17 08:44 Metronidazole 100 ml @ 100 mls/hr Q8HR IVPB 07/24/17 22:00 07/31/17 21:59 07/28/17 14:55 Morphine Sulfate (Morphine Sulfate) 2 mg Q4H PRN IVP PAIN 4-10 07/28/17 14:45 08/04/17 23:59 Ondansetron HCl (Zofran) 4 mg Q6H PRN IVP Nausea & Vomiting 07/16/17 22:15 08/15/17 22:14 Pantoprazole (Protonix) 40 mg EVERY 12 HOURS IVP 07/26/17 21:00 08/25/17 20:59 07/28/17 08:44 Polyethylene Glycol (Miralax) 17 gm DAILYPRN PRN GT Constipation 07/27/17 14:15 08/15/17 22:14 Spironolactone (Aldactone) 25 mg DAILY NG 07/25/17 15:30 08/24/17 15:29 07/28/17 08:44 Vancomycin HCl (Vanco rx to dose) 1 ea DAILY PRN MISC per protocol 07/17/17 00:45 08/16/17 00:44 Vancomycin/Sodium Chloride 250 ml @ 166.667 mls/hr Q24H IVPB 07/27/17 09:00 08/01/17 08:59 07/28/17 09:07 MIHAELA TUBBS Jul 28, 2017 16:26
[2017-07-28] MEDS ORDERED: Tubing Blood Filter IV ONE (17:05)
[2017-07-28] MEDS ORDERED: Tubing IV Secondary IV ONE ×2 (17:05→17:06)
[2017-07-28] MEDS ORDERED: NS 275ml ONE ×2 (17:05→17:06)
[2017-07-28] MEDS ORDERED: D5NS 1000ml IV ONE (17:06)
[2017-07-28] MEDS ORDERED: NS 500ML ONE (17:06)
--- NOTE | 2017-07-28 18:21 | Consultation ---
History of Present Illness General Date patient seen: Jul 28, 2017 Chief Complaint: Dyspnea/Respdistress Referring physician: JESSIE CRUZ Reason for Consultation: tracheostomy Present Illness HPI Beatriz Springer is a 87-year-old female with multiple medical comorbidities who was brought to the emergency room for respiratory distress and shortness of breath from [facility]. O2 saturation was 80%. The patient initially was placed on BiPAP. The patient apparently has dementia at baseline and was unable to provide any information. The patient then subsequently was intubated and was brought to the intensive care unit for further evaluation and management. She has failed weaning from ventilator and will require prolonged ventilatory support. Surgery called to evaluate for Tracheostomy. Allergies: Coded Allergies: No Known Allergies (Unverified , 05/25/13) Medication History Scheduled Amlodipine Besylate* (Amlodipine Besylate*), 10 MG GT DAILY, (Reported) Apixaban (Eliquis), 2.5 MG GT BID, (Reported) Bethanechol* (Bethanechol*), 10 MG GT THREE TIMES A DAY, (Reported) Calcitonin,[place],Synthetic (Calcitonin-[place]wood), 200 UNITS NS DAILY, (Reported) Calcium Carbonate (Calcium), 500 MG GT DAILY, (Reported) Clopidogrel* (Clopidogrel*), 75 MG GT DAILY, (Reported) Docusate Sodium (Docusate Sodium), 100 MG GT BID, (Reported) Donepezil Hcl* (Aricept*), 10 MG GT BEDTIME, (Reported) Ferrous Sulfate (Ferrous Sulfate), 330 MG GT THREE TIMES A DAY, (Reported) Folic Acid* (Folic Acid*), 1 MG GT DAILY, (Reported) Gabapentin* (Gabapentin*), 100 MG GT BEDTIME, (Reported) Lactobacillus Acidophilus (Acidophilus), 1 EACH GT DAILY, (Reported) Lisinopril (Lisinopril*), 5 MG GT DAILY, (Reported) Metoclopramide Hcl* (Reglan*), 10 MG GT BID, (Reported) Metoprolol Tartrate* (Metoprolol Tartrate*), 25 MG GT BID, (Reported) Multivitamins* (Multivitamins*), 1 TAB GT DAILY, (Reported) Omeprazole (Omeprazole), 40 MG GT BID, (Reported) Polyethylene Glycol 3350* (Miralax*), 17 GM GT DAILY, (Reported) Pravastatin Sod (Pravastatin Sod), 80 MG GT BEDTIME, (Reported) Ranitidine Hcl* (Zantac*), 300 MG GT BEDTIME, (Reported) Sucralfate (Carafate), 1 GM GT THREE TIMES A DAY, (Reported) Vitamin B Complex (Vitamin B Complex), 1 EACH GT DAILY, (Reported) Scheduled PRN Acetaminophen* (Acetaminophen 325MG Tablet*), 650 MG GT Q6H PRN for Mild Pain/ Temp > 100.5, (Reported) Hydrocodone Bit/Acetaminophen 5-325* ([place]ando 5-325 Tablet*), 1 TAB GT Q4H PRN for For Pain, (Reported) Ipratropium [place] 0.5MG/2.5ML (Ipratropium [place] 0.5MG/2.5ML), 0.5 MG HHN Q6H PRN for Shortness of Breath, (Reported) Loratadine (Loratadine), 10 MG GT DAILY PRN for ALLERGY, (Reported) Magnesium Hydroxide* (Milk Of Magnesia*), 30 ML GT DAILY PRN for Constipation, ( Reported) Melatonin/Pyridoxine HCl (B6) (Melatonin 3 mg Tablet), 2 EACH GT BEDTIME PRN for SLEEP AID, (Reported) Patient History History Provided By: Medical Record, PMD Healthcare decision maker prachi rodriguez Resuscitation status Full Code Advanced Directive on File No Past Medical/Surgical History Past Medical/Surgical History: (1) [id number] (2) [id number] (3) Syncope (4) Pneumonia (5) Elevated troponin (6) Demand ischemia of myocardium (7) Septic shock (8) Dehydration (9) Anemia (10) Weakness (11) Transaminitis (12) Protein-calorie malnutrition, severe (13) CVA (cerebral vascular accident) (14) Ischemic cardiomyopathy (15) Alzheimer's dementia (16) CAD s/p PCI (17) diffuse severe gastropathy (18) lives at snf (19) paroxsymal atrial fibrillation (20) Hyponatremia (21) Lactic acid acidosis (22) Acute on chronic diastolic heart failure (23) Severe sepsis (24) NSTEMI (non-ST elevated myocardial infarction) (25) Acute respiratory failure with hypoxia and hypercapnia (26) Acute on chronic anemia (27) UTI (urinary tract infection) (28) HCAP vs Aspiration pneumonia (29) Ventilator dependent (30) Respiratory failure (31) Oliguria (32) Hypernatremia (33) GI bleed (34) Failure to thrive (35) Functional quadriplegia (36) Generalized weakness (37) Carotid stenosis, bilateral Review of Systems ROS Narrative cannot obtain given medical condition Physical Exam General Appearance: mild distress, agitated, thin Lines, tubes and drains: central line HEENT: mucous membranes moist Neck: normal inspection Respiratory/Chest: on vent Cardiovascular/Chest: regularly irregular Abdomen: normal bowel sounds, soft, no organomegaly Extremities: normal inspection Skin Exam: normal pigmentation Neurologic: unresponsiveness Last 24 Hour Vital Signs Date Time Temp Pulse Resp B/P (MAP) Pulse Ox O2 Delivery O2 Flow Rate FiO2 07/28/17 18:00 114 33 122/67 96 Mechanical Ventilator 60 07/28/17 17:00 107 33 113/52 96 Mechanical Ventilator 60 07/28/17 16:59 101 41 60 07/28/17 16:00 123 07/28/17 16:00 98.5 123 34 123/58 97 Mechanical Ventilator 60 07/28/17 16:00 60 07/28/17 15:50 89 42 60 07/28/17 15:00 97 33 111/44 96 Mechanical Ventilator 60 07/28/17 14:00 98 33 110/44 95 Mechanical Ventilator 60 07/28/17 13:43 94 34 100 Mechanical Ventilator 60 07/28/17 13:00 96 35 108/45 98 Mechanical Ventilator 60 07/28/17 12:39 86 36 100 Mechanical Ventilator 90 07/28/17 12:38 88 36 60 07/28/17 12:00 98.3 95 32 111/44 95 Mechanical Ventilator 60 07/28/17 12:00 103 07/28/17 12:00 60 07/28/17 11:00 99 35 113/49 98 Mechanical Ventilator 60 07/28/17 11:00 90 38 60 07/28/17 10:00 98 35 112/50 96 Mechanical Ventilator 60 07/28/17 09:27 89 38 60 07/28/17 09:00 96 35 128/50 96 Mechanical Ventilator 60 07/28/17 08:44 113 116/49 07/28/17 08:00 100 07/28/17 08:00 98.4 100 33 110/50 96 Mechanical Ventilator 60 07/28/17 08:00 60 07/28/17 07:49 91 35 98 Mechanical Ventilator 60 07/28/17 07:14 99 38 85 Mechanical Ventilator 90 07/28/17 07:13 90 41 60 07/28/17 07:00 103 27 118/47 96 Mechanical Ventilator 60 07/28/17 06:00 82 36 117/44 96 Mechanical Ventilator 60 07/28/17 05:41 82 35 60 07/28/17 05:00 92 36 103/58 96 Mechanical Ventilator 60 07/28/17 04:00 95 07/28/17 04:00 60 07/28/17 04:00 98.2 88 34 103/58 97 Mechanical Ventilator 60 07/28/17 03:42 82 35 60 07/28/17 03:00 96 33 107/80 98 Mechanical Ventilator 60 07/28/17 02:00 107 35 95/56 97 Mechanical Ventilator 60 07/28/17 01:44 97 34 100 Mechanical Ventilator 60 07/28/17 01:32 97 38 60 07/28/17 01:32 99 36 96 Mechanical Ventilator 90 07/28/17 01:00 98.8 97 38 112/98 96 Mechanical Ventilator 60 07/28/17 00:00 60 07/28/17 00:00 99.7 106 34 111/91 95 Mechanical Ventilator 60 07/28/17 00:00 106 07/27/17 23:53 97 39 60 07/27/17 23:00 106 39 91/39 96 Mechanical Ventilator 60 07/27/17 22:00 95 36 107/55 96 Mechanical Ventilator 60 07/27/17 21:19 112 112/60 07/27/17 21:00 103 33 112/52 100 Mechanical Ventilator 60 07/27/17 20:58 100 34 100 Mechanical Ventilator 60 07/27/17 20:48 110 36 100 Mechanical Ventilator 90 07/27/17 20:47 110 38 60 07/27/17 20:00 99.1 114 34 132/60 92 Mechanical Ventilator 60 07/27/17 20:00 60 07/27/17 20:00 115 07/27/17 19:00 104 36 132/60 92 Mechanical Ventilator 60 Intake and Output 07/27/17 07/28/17 19:00 07:00 Intake Total 1025.667 ml 485 ml Output Total 540 ml 315 ml Balance 485.667 ml 170 ml Free Water 160 ml IV Total 505.667 ml 255 ml Tube Feeding 360 ml 120 ml Other 110 ml Output Urine Total 540 ml 315 ml # Bowel Movements 1 Laboratory Tests Test 07/28/17 06:10 07/28/17 08:00 07/28/17 09:02 White Blood Count 14.3 K/UL (4.8-10.8) H Red Blood Count 3.05 M/UL (4.20-5.40) L Hemoglobin 8.5 G/DL (12.0-16.0) L Hematocrit 27.4 % (37.0-47.0) L Mean Corpuscular Volume 90 FL (80-99) Mean Corpuscular Hemoglobin 27.9 PG (27.0-31.0) Mean Corpuscular Hemoglobin Concent 31.0 G/DL (32.0-36.0) L Red Cell Distribution Width 19.5 % (11.6-14.8) H Platelet Count 141 K/UL (150-450) L Mean Platelet Volume 10.5 FL (6.5-10.1) H Neutrophils (%) (Auto) % (45.0-75.0) Lymphocytes (%) (Auto) % (20.0-45.0) Monocytes (%) (Auto) % (1.0-10.0) Eosinophils (%) (Auto) % (0.0-3.0) Basophils (%) (Auto) % (0.0-2.0) Differential Total Cells Counted 100 Neutrophils % (Manual) 94 % (45-75) H Lymphocytes % (Manual) 5 % (20-45) L Monocytes % (Manual) 1 % (1-10) Eosinophils % (Manual) 0 % (0-3) Basophils % (Manual) 0 % (0-2) Band Neutrophils 0 % (0-8) Platelet Estimate Adequate Platelet Morphology Normal Hypochromasia 1+ Anisocytosis 1+ Sodium Level 149 MMOL/L (136-145) H Potassium Level 3.8 MMOL/L (3.5-5.1) Chloride Level 115 MMOL/L (98-107) H Carbon Dioxide Level 30 MMOL/L (21-32) Anion Gap 4 mmol/L (5-15) L Blood Urea Nitrogen 31 mg/dL (7-18) H Creatinine 1.1 MG/DL (0.55-1.30) Estimat Glomerular Filtration Rate mL/min (>60) Glucose Level 122 MG/DL (74-106) H Calcium Level 6.4 MG/DL (8.5-10.1) L Total Bilirubin 0.5 MG/DL (0.2-1.0) Aspartate Amino Transf (AST/SGOT) 18 U/L (15-37) Alanine Aminotransferase (ALT/SGPT) < 6 U/L (12-78) L Alkaline Phosphatase 59 U/L (46-116) Total Protein 4.5 G/DL (6.4-8.2) L Albumin 1.2 G/DL (3.4-5.0) L Globulin 3.3 g/dL Albumin/Globulin Ratio 0.4 (1.0-2.7) L Arterial Blood pH 7.423 (7.350-7.450) Arterial Blood Partial Pressure CO2 43.7 mmHg (35.0-45.0) Arterial Blood Partial Pressure O2 62.6 mmHg (75.0-100.0) L Arterial Blood HCO3 27.9 mmol/L (22.0-26.0) H Arterial Blood Oxygen Saturation 91.3 % (92.0-98.0) L Arterial Blood Base Excess 3.1 Jamie Test Positive Height (Feet): 5 Height (Inches): 2.00 Weight (Pounds): 144 Medications Current Medications Medications (Trade) Dose Ordered Sig/Analia Route PRN Reason Start Time Stop Time Status Last Admin Dose Admin Acetaminophen (Tylenol) 650 mg Q4H PRN ORAL fever 07/16/17 22:15 08/15/17 22:14 07/28/17 00:25 Albuterol/ Ipratropium (Albuterol/ Ipratropium) 3 ml Q4H PRN HHN Shortness of Breath 07/28/17 12:30 08/02/17 12:29 Atorvastatin Calcium (Lipitor) 10 mg BEDTIME GT 07/27/17 21:00 08/16/17 20:59 07/27/17 21:19 Chlorhexidine Gluconate (Joana-Hex 2%) 1 applic DAILY@2000 TOPIC 07/23/17 20:00 08/22/17 19:59 07/27/17 19:58 Dextrose/Sodium Chloride 1,000 ml @ 50 mls/hr Q20H IV 07/28/17 15:30 08/27/17 15:29 07/28/17 15:45 Fluconazole/ Sodium Chloride 100 ml @ 100 mls/hr Q24H IV 07/24/17 18:00 07/31/17 17:59 07/28/17 17:30 Furosemide (Lasix) 40 mg DAILY IV 07/27/17 09:00 08/22/17 20:59 07/28/17 08:43 Ipratropium [place] (Atrovent) 500 mcg Q6HRT HHN 07/27/17 01:00 08/01/17 00:59 07/28/17 12:39 Lorazepam (Ativan 2mg/ml 1ml) 2 mg Q4H PRN IV For Anxiety 07/26/17 16:15 08/02/17 16:14 07/27/17 10:21 Meropenem 1 gm/ Sodium Chloride 110 ml @ 220 mls/hr Q12HR@0800,2000 IVPB 07/28/17 20:00 08/02/17 19:59 Metoprolol Tartrate (Lopressor) 12.5 mg Q12HR ORAL 07/17/17 21:00 08/16/17 20:59 07/28/17 08:44 Metronidazole 100 ml @ 100 mls/hr Q8HR IVPB 07/24/17 22:00 07/31/17 21:59 07/28/17 14:55 Morphine Sulfate (Morphine Sulfate) 2 mg Q4H PRN IVP PAIN 4-10 07/28/17 14:45 08/04/17 23:59 Ondansetron HCl (Zofran) 4 mg Q6H PRN IVP Nausea & Vomiting 07/16/17 22:15 08/15/17 22:14 Pantoprazole (Protonix) 40 mg EVERY 12 HOURS IVP 07/26/17 21:00 08/25/17 20:59 07/28/17 08:44 Polyethylene Glycol (Miralax) 17 gm DAILYPRN PRN GT Constipation 07/27/17 14:15 08/15/17 22:14 Spironolactone (Aldactone) 25 mg DAILY NG 07/25/17 15:30 08/24/17 15:29 07/28/17 08:44 Vancomycin HCl (Vanco rx to dose) 1 ea DAILY PRN MISC per protocol 07/17/17 00:45 08/16/17 00:44 Vancomycin/Sodium Chloride 250 ml @ 166.667 mls/hr Q24H IVPB 07/27/17 09:00 08/01/17 08:59 07/28/17 09:07 Assessment/Plan Problem List: (1) Ventilator dependent ICD Codes: Z99.11 - Dependence on respirator [ventilator] status SNOMED: 454261940 (2) Respiratory failure ICD Codes: J96.90 - Respiratory failure, unspecified, unspecified whether with hypoxia or hypercapnia SNOMED: 548955492 Qualifiers: Qualified Codes: J96.21 - Acute and chronic respiratory failure with hypoxia Status: not improved Assessment/Plan 87F with multiple medical problems including respiratory failure requiring prolonged ventilatory support. Patient seen, chart reviewed, discussed with primary team, family, and staff. Patients daughter Prachi Rodriguez states that mother wanted to live and would want full code and aggressive care. I discussed rational for tracheostomy, risks, benefits, and alternatives. Her mother would be a good candidate for trach. Daughter who consents for her states that she would want a trach and consented to procedure. daughter states that her daughter had a trach prior when she was in a coma and she is familiar with what a trach is. -plan for tracheostomy tomorrow -npo after midnight -AM labs -consent. Teo Del Valle Jul 28, 2017 18:21
--- NOTE | 2017-07-28 18:22 | Pre-Procedure Note/Attestation ---
Pre-Procedure Note/Attestation Complete Prior to Procedure Procedure Narrative: tracheostomy Indications for Procedure Pre-Operative Diagnosis: respiratory failure requiring prolonged ventilatory support. Attestation I attest that I discussed the nature of the procedure; its benefits; risks and complications; and alternatives (and the risks and benefits of such alternatives ), prior to the procedure, with the patient (or the patient's legal front office representative). I attest that, if there was a reasonable possibility of needing a blood transfusion, the patient (or the patient's legal front office representative) was given the [facility] standardized written summary, pursuant to the Bill Elena Blood Safety Act ([place] Health and Safety Code # 1645, as amended). I attest that I re-evaluated the patient just prior to the surgery and that there has been no change in the patient's H&P, except as documented below: Teo Del Valle Jul 28, 2017 18:22
[2017-07-28] MEDS: Dyna-Hex 2% Top Sol 2oz TOPIC SCH (20:00)
[2017-07-28] MEDS: Meropenem 1 GM in NS 110 ML IVPB SCH (20:00)
--- NOTE | 2017-07-28 20:20 | Neurology Progress Note ---
Interim History Interim History Interim History Ms. Loving continues to be encephalopathic. Her mental state continues to wax and wane. She continues to be intubated and artificially ventilated. Her cerebration is slower. She is unable to communicate. She is generally weak. She is still unable to cooperate for a neurologic examination. Plans are for a tracheostomy tomorrow. Review of Systems Neuro Review of Systems Unable to obtain. Objective Physical Exam Last Vital Signs Date Time Temp Pulse Resp B/P (MAP) Pulse Ox O2 Delivery O2 Flow Rate FiO2 07/28/17 20:00 60 07/28/17 20:00 98.9 106 39 125/58 95 Mechanical Ventilator 07/24/17 19:29 1.0 Laboratory Tests Test 07/28/17 06:10 07/28/17 08:00 07/28/17 09:02 White Blood Count 14.3 K/UL (4.8-10.8) H Red Blood Count 3.05 M/UL (4.20-5.40) L Hemoglobin 8.5 G/DL (12.0-16.0) L Hematocrit 27.4 % (37.0-47.0) L Mean Corpuscular Volume 90 FL (80-99) Mean Corpuscular Hemoglobin 27.9 PG (27.0-31.0) Mean Corpuscular Hemoglobin Concent 31.0 G/DL (32.0-36.0) L Red Cell Distribution Width 19.5 % (11.6-14.8) H Platelet Count 141 K/UL (150-450) L Mean Platelet Volume 10.5 FL (6.5-10.1) H Neutrophils (%) (Auto) % (45.0-75.0) Lymphocytes (%) (Auto) % (20.0-45.0) Monocytes (%) (Auto) % (1.0-10.0) Eosinophils (%) (Auto) % (0.0-3.0) Basophils (%) (Auto) % (0.0-2.0) Differential Total Cells Counted 100 Neutrophils % (Manual) 94 % (45-75) H Lymphocytes % (Manual) 5 % (20-45) L Monocytes % (Manual) 1 % (1-10) Eosinophils % (Manual) 0 % (0-3) Basophils % (Manual) 0 % (0-2) Band Neutrophils 0 % (0-8) Platelet Estimate Adequate Platelet Morphology Normal Hypochromasia 1+ Anisocytosis 1+ Sodium Level 149 MMOL/L (136-145) H Potassium Level 3.8 MMOL/L (3.5-5.1) Chloride Level 115 MMOL/L (98-107) H Carbon Dioxide Level 30 MMOL/L (21-32) Anion Gap 4 mmol/L (5-15) L Blood Urea Nitrogen 31 mg/dL (7-18) H Creatinine 1.1 MG/DL (0.55-1.30) Estimat Glomerular Filtration Rate mL/min (>60) Glucose Level 122 MG/DL (74-106) H Calcium Level 6.4 MG/DL (8.5-10.1) L Total Bilirubin 0.5 MG/DL (0.2-1.0) Aspartate Amino Transf (AST/SGOT) 18 U/L (15-37) Alanine Aminotransferase (ALT/SGPT) < 6 U/L (12-78) L Alkaline Phosphatase 59 U/L (46-116) Total Protein 4.5 G/DL (6.4-8.2) L Albumin 1.2 G/DL (3.4-5.0) L Globulin 3.3 g/dL Albumin/Globulin Ratio 0.4 (1.0-2.7) L Arterial Blood pH 7.423 (7.350-7.450) Arterial Blood Partial Pressure CO2 43.7 mmHg (35.0-45.0) Arterial Blood Partial Pressure O2 62.6 mmHg (75.0-100.0) L Arterial Blood HCO3 27.9 mmol/L (22.0-26.0) H Arterial Blood Oxygen Saturation 91.3 % (92.0-98.0) L Arterial Blood Base Excess 3.1 Jamie Test Positive Neurologic Exam Objective PHYSICAL EXAMINATION: GENERAL: She is a well-developed, but lean and ill-looking lady, lying in an intensive care unit bed connected to a ventilator via an fina- tracheal tube. HEAD: Normocephalic with a right temporoparietal skull defect. EENT: Examination benign. NECK: No neck rigidity was observed. NEUROLOGICAL EXAMINATION: MENTAL STATUS EXAMINATION: She was lethargic but was arousable. When aroused, she was unable to communicate or follow simple commands. SPEECH: She was intubated. LANGUAGE: Could not be tested adequately because of her altered mental state. CRANIAL NERVE EXAMINATION: II: She did blink to threat. III, IV & : The external ocular movements were present and the pupils 3 mm in diameter, equal, round, regular, and reactive to light. V & VII: The corneal reflexes were brisk, but brisker on the right than on the left. She also had mild flattening of the left nasolabial fold. VIII: She seemed to be able to hear and had no nystagmus. IX & X: The gag reflex was subdued. XI: The sternocleidomastoids and trapezii did function. XII: She did protrude the tongue minimally, but could not protrude it completely. MOTOR SYSTEM: The tone was increased in all four extremities with a mild degree of spasticity, slightly more marked on the left side compared to the right. Examination of muscle mass revealed generalized muscle wasting with bilateral ankle cord contractures. She did move her lower extremities minimally on deep pain. SENSORY EXAMINATION: She responded minimally to deep pain. Other sensory modalities could not be tested. REFLEXES: Trace+ on the right and 1+ on the left at the biceps, triceps, brachioradialis, and knees and 0 at both ankles. The plantar responses were extensor bilaterally. COORDINATION, STANCE & GAIT: Could not be tested. Impression/Recommendations Diagnostic Impression 1. Ms. Beatriz Loving is an 87-year-old, lady, of unknown handedness, who does have a past history of hypertension, coronary artery disease, paroxysmal atrial fibrillation, Alzheimer disease, cerebrovascular disease, and right brain surgery for reasons unknown to us, who lives in a assisted. She was hospitalized on 07/16/2017 for shortness of breath associated with hypoxia, elevated troponin, a urinary tract infection, and possibly a pneumonic process. She was stabilized and on 07/21/2017 was extubated. Following that, she was brighter, but later on 07/22/17 she was noted to be more somnolent and slurring her speech. 2. She is more encephalopathic today. 3. On neurological examination, at this time, she does have a right temporoparietal skull defect, is lethargic but arousable, is unable to cooperate for further mental status testing, is unable to cooperate for language testing, is generally weak with a spastic quadriparesis, slightly more marked on the left than on the right, and has globally diminished deep tendon reflexes that are slightly brisker on the left than the right with extensor plantar responses bilaterally. 4. The CT scan of the brain without contrast reveals atrophy, deep white matter changes, and a right temporoparietal craniotomy defect, but no acute pathology. 5. Laboratory data on admission revealed that she had a significant leukocytosis with a WBC count of 15.7. She was anemic with a hemoglobin of 9.1. She had a left-sided shift on her white blood cell count. Her arterial blood gas revealed a pCO2 of 51 and a pO2 of 116. A chemistry panel revealed a sodium down to 133, potassium elevated to 5.3, BUN elevated to 24, her glucose elevated to 278, AST elevated to 138, ProBNP was greater than 35,000, her albumin was down to 2.0, and her troponin was elevated to 10.3. Her urinalysis revealed 3+ leukocyte esterase, too numerous to count red blood cells and white blood cells, and many urinary bacteria. 6. The EEG revealed an encephalopathy of moderate degree. 7. Her leukocytosis is better but she is now hypoxic. 8. 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 She is more encephalopathic today. Recommendations 1. Continue present management. 2. Continue to correct the patient's toxic metabolic imbalances. 3. Correct the patient's anemia to a hemoglobin of greater than 10 G. 4. Observe closely. Daniel Fuller M.D., M.S.P.DANIEL REDDY Jul 28, 2017 20:20
[2017-07-29] VITALS (23 sets, daily range): BP systolic 86–125; BP diastolic 39–72
[2017-07-29] MEDS: Ipratropium 0.02% Inh Soln 2.5ml UD HHN SCH ×5 (02:20→19:04)
[2017-07-29] MEDS: D5 1/2NS 1,000 ML IV SCH ×2 (02:30→16:04)
--- NOTE | 2017-07-29 03:00 | Progress Note ---
DATE: 07/28/2017 CARDIOLOGY PROGRESS NOTE SUBJECTIVE: The patient remains on ventilator support. She is status post packed red blood cell transfusions. Aspirin was discontinued due to continued blood draws. He remains on beta-blockade. OBJECTIVE: VITAL SIGNS: Blood pressure 111/44, pulse 97, respirations 33, and afebrile. LUNGS: Bilateral breath sounds. HEART: Regular rhythm and rate. Normal S1 and S2. ABDOMEN: Soft and nontender. EXTREMITIES: Trace edema. LABORATORY DATA: White count 14.3 and hemoglobin 8.5. Sodium 149, potassium 3.8, bicarbonate 30, BUN 31, and creatinine 1.1. Albumin 1.2. ABG, 7.42, 43, and 63. IMPRESSION: 1. Gastrointestinal bleeding. 2. Acute myocardial infarction. 3. Severe protein-calorie malnutrition. 4. Hypernatremia. 5. Dehydration, recovered. 6. Acute respiratory acidosis. 7. Respiratory failure. 8. Sepsis with shock, recovered. PLAN: 1. Off anti-platelet therapy. 2. Ventilator support. 3. Antimicrobials. 4. May need trach. 5. Continue beta-sahra. 6. Continue potassium-sparing diuretic. 7. Diagnostic endoscopy to follow. 8. Continue hypotonic IV fluids until free water deficits corrected. Carlos Cruz M.D. DR: TOMER JOB#: [id number] CC: TALYA
[2017-07-29 06:45] LABS: HEMATOCRIT 34.7 % (37.0-47.0); HEMOGLOBIN 10.9 G/DL (12.0-16.0); MEAN CORPUSCULAR VOLUME 90 FL (80-99); PLATELET COUNT 154 K/UL (150-450); RED BLOOD COUNT 3.85 M/UL (4.20-5.40); RED CELL DISTRIBUTION WIDTH 19.6 % (11.6-14.8); WHITE BLOOD COUNT 20.9 K/UL (4.8-10.8)
[2017-07-29 06:47] LABS: INR 2.2 (0.9-1.1)
[2017-07-29 07:42] LABS: ANION GAP 8 mmol/L (5-15); BLOOD UREA NITROGEN 34 mg/dL (7-18); CALCIUM 6.6 MG/DL (8.5-10.1); CARBON DIOXIDE 26 MMOL/L (21-32); CHLORIDE 113 MMOL/L (98-107); CREATININE 1.2 MG/DL (0.55-1.30); SODIUM 147 MMOL/L (136-145)
[2017-07-29] MEDS: Meropenem 1 GM in NS 110 ML IVPB SCH ×2 (08:09→20:07)
[2017-07-29] MEDS: Pantoprazole Inj IVP SCH ×2 (08:10→21:28)
[2017-07-29] MEDS: Spironolactone 25mg tab NG SCH (09:00)
[2017-07-29] MEDS: Metoprolol Tartrate 12.5mg TAB ORAL SCH ×2 (09:00→21:28)
[2017-07-29] MEDS: Vancomycin 750mg/NS 250ml IVPB SCH (09:10)
--- NOTE | 2017-07-29 10:40 | Pulmonolgy Critical Care Note ---
Critical Care - Asmt/Plan Assessment/Plan: ASSESSMENT acute hypoxemic respiratory failure requiring intubation s/p extubation s/p reintubation 07/26 sepsis with shock extensive PNA UTI with Staph aureus NSTEMI demand ischemia of myocardium severe diffuse gastropathy upper GI bleeding LBBB NSVT ischemic CM acute on chronic diastolic HF CAD s/p PCI acute toxic metabolic encephalopathy on chronic dementia ( likely due to to sepsis, NSTEMI) hx of CVA acute anemia requiring blood transfusion lactic acidosis transaminitis -resolved severe protein calorie malnutrition dehydration hypernatremia Alzheimer [id number] functional quadriplegia dysphagia, G tube PLAN OF CARE ICU vent support pulmonary toilet reintubated 07/26 due to difficulties marta weaning from BiPAP and difficulties with handling secretions daughter out of state voiced desire for full code, was informed by dr Porter that likely will need trach, agree with plan trach today fup with daily CXR and ABG CT C/A/P noted -Extensive airspace disease within the lungs bilaterally etiology unknown. ARDS and diffuse extensive pneumonia are among the differential considerations. trach today abx, ID follows urine cx + E coli MRSA, sputum cx negative, blood cx negative, stool C dif negative, wound cx + Klebsiella,E coli Enterococci off heparin gtt and ASA due to GI bleeding cardio follows serial troponin c/w NSTEMI, troponin trended down not stable for cardiac cath ECHO with EF 50% and RVSP of 28, mild continue BB as BP allows , statin and cautious diuresis monitor cardiorenal parameters, volumes s/p blood transfusion HH at baseline, up this am monitor HH, with goal to keep Hgb above 8 , stool Ob + anemia w/up c/w anemia of chronic disease and has iron deficiency s/p Venofer x5 doses s/p PPI gtt GI follows gastric lavage by GI 07/17 with evidence of GI bleeding per GI will need EGD when stable with prior cardiac clearance G tube feeding, monitor tolerance , strict aspiration precautions PPI IV bid trend LFT likely due to sepsis and shock - down to normal pain management bowel regimen venous Duplex BLE -negative, SCD CT head negative for acute IC pathology neuro follows, EEG abnormal with evidence of moderate encephalopathy, per neuro toxic metabolic encephalopathy superimposed on on old structural brain disease and dementia will need placement to subacute case discussed and evaluated by supervising physician Critical Care - Objective Last 24 Hour Vital Signs Date Time Temp Pulse Resp B/P (MAP) Pulse Ox O2 Delivery O2 Flow Rate FiO2 07/29/17 09:00 60 07/29/17 09:00 99 103/42 07/29/17 09:00 106 36 97/62 97 Mechanical Ventilator 60 07/29/17 08:50 103 37 60 07/29/17 08:00 98.2 106 37 97/49 97 Mechanical Ventilator 60 07/29/17 07:05 112 30 97 Mechanical Ventilator 60 07/29/17 07:00 108 35 115/60 93 Mechanical Ventilator 60 07/29/17 07:00 106 37 94 Mechanical Ventilator 60 07/29/17 07:00 106 42 60 07/29/17 06:00 116 37 125/53 95 Mechanical Ventilator 60 07/29/17 05:00 103 34 112/55 96 Mechanical Ventilator 60 07/29/17 04:49 98 43 60 07/29/17 04:00 98.6 102 23 104/72 98 Mechanical Ventilator 60 07/29/17 04:00 107 07/29/17 04:00 60 07/29/17 03:00 100 25 102/56 97 Mechanical Ventilator 60 07/29/17 02:21 112 41 60 07/29/17 02:00 94 30 120/64 92 Mechanical Ventilator 60 07/29/17 01:29 103 40 95 Mechanical Ventilator 60 07/29/17 01:24 110 37 90 Mechanical Ventilator 60 07/29/17 01:00 107 41 60 07/29/17 01:00 100 34 110/66 93 Mechanical Ventilator 60 07/29/17 00:00 60 07/29/17 00:00 101 07/29/17 00:00 98.7 91 30 115/68 93 Mechanical Ventilator 60 07/28/17 23:08 103 44 60 07/28/17 23:00 101 36 116/51 95 Mechanical Ventilator 60 07/28/17 22:00 97 36 120/62 95 Mechanical Ventilator 60 07/28/17 21:19 107 113/58 07/28/17 21:05 101 41 60 07/28/17 21:00 98 40 113/46 99 Mechanical Ventilator 60 07/28/17 20:00 90 07/28/17 20:00 60 07/28/17 20:00 98.9 106 39 125/58 95 Mechanical Ventilator 60 07/28/17 19:05 101 41 99 Mechanical Ventilator 60 07/28/17 19:00 108 45 60 07/28/17 19:00 98 38 121/67 96 Mechanical Ventilator 60 07/28/17 19:00 108 33 98 Mechanical Ventilator 90 07/28/17 18:00 114 33 122/67 96 Mechanical Ventilator 60 07/28/17 17:00 107 33 113/52 96 Mechanical Ventilator 60 07/28/17 16:59 101 41 60 07/28/17 16:00 123 07/28/17 16:00 98.5 123 34 123/58 97 Mechanical Ventilator 60 07/28/17 16:00 60 07/28/17 15:50 89 42 60 07/28/17 15:00 97 33 111/44 96 Mechanical Ventilator 60 07/28/17 14:00 98 33 110/44 95 Mechanical Ventilator 60 07/28/17 13:43 94 34 100 Mechanical Ventilator 60 07/28/17 13:00 96 35 108/45 98 Mechanical Ventilator 60 07/28/17 12:39 86 36 100 Mechanical Ventilator 90 07/28/17 12:38 88 36 60 07/28/17 12:00 98.3 95 32 111/44 95 Mechanical Ventilator 60 07/28/17 12:00 103 07/28/17 12:00 60 07/28/17 11:00 99 35 113/49 98 Mechanical Ventilator 60 07/28/17 11:00 90 38 60 Objective: Condition: critical, awake HEENT: atraumatic, normocephalic, OP with ET in place, Lungs: few scattered rhonchi Heart: HR/BP stable, PICC RUE intact Abdomen: soft, non-tender, G tube Extremities: no C/C/E Critical Care - Subjective ROS Limited/Unobtainable: Yes Interval Events: leukocytosis trending up, afebrile ABG stable on current settings trach today Condition: critical IV Access: PICC EKG Rhythm: Sinus Tachycardia - with freq PVC FI02: 60 Vent Support Breath Rate: 16 Vent Support Mode: AC Vent Tidal Volume: 400 Sputum Amount: Scant PEEP: 5.0 PIP: 32 Fluids: D5 1/2 NS at 75 Tube Feeding Amount: 30 I&O: Intake and Output 07/28/17 07/29/17 19:00 07:00 Intake Total 793.2 ml 897 ml Output Total 230 ml 280 ml Balance 563.2 ml 617 ml IV Total 793.2 ml 847 ml Other 50 ml Output Urine Total 230 ml 280 ml CXR: CT chest 06/28 -Extensive airspace disease within the lungs bilaterally etiology unknown. ARDS and diffuse extensive pneumonia are among the differential considerations. ET-Tube: 7.5 ET Position: 27 Sukumar (Carlos AlbertoFariha choe NP Jul 29, 2017 10:39
--- NOTE | 2017-07-29 11:55 | GI Progress Note ---
Assessment/Plan Problems: (1) S/P percutaneous endoscopic gastrostomy (PEG) tube placement ICD Codes: Z93.1 - Gastrostomy status SNOMED: 307831544 (2) Failure to thrive SNOMED: 70606781 (3) Ventilator dependent ICD Codes: Z99.11 - Dependence on respirator [ventilator] status SNOMED: 389319705 (4) NSTEMI (non-ST elevated myocardial infarction) ICD Codes: I21.4 - Non-ST elevation (NSTEMI) myocardial infarction SNOMED: 308728701 (5) Severe sepsis ICD Codes: A41.9 - Sepsis, unspecified organism; R65.20 - Severe sepsis without septic shock SNOMED: 77545794 (6) Elevated troponin ICD Codes: R74.8 - Abnormal levels of other serum enzymes SNOMED: 067920918, 105072393 (7) Anemia ICD Codes: D64.9 - Anemia, unspecified SNOMED: 331428649 (8) Weakness ICD Codes: R53.1 - Weakness SNOMED: 52881190 (9) Transaminitis ICD Codes: R74.0 - Nonspecific elevation of levels of transaminase and lactic acid dehydrogenase [LDH] SNOMED: 030148136 (10) Protein-calorie malnutrition, severe ICD Codes: E43 - Unspecified severe protein-calorie malnutrition SNOMED: 134612279 (11) Dehydration ICD Codes: E86.0 - Dehydration SNOMED: 03814559 (12) Septic shock ICD Codes: A41.9 - Sepsis, unspecified organism; R65.21 - Severe sepsis with septic shock SNOMED: 11714166 Status: not improved Status Narrative Discussed with Dr. Sierra. Assessment/Plan Assessment - respiratory failure - dysphagia, s/p prior GJ tube >> now changed to GT - UGIB - no plans for EGD at this time due to AR - NSTEMI - AMS - Anemia - OB stool positive Recommendations EGD to be scheduled pending cardiac clearance, will consider replacement of GJ tube if necessary. GTF monitor H&H closely, stable last few days cardiology f/u PPI q12 abx fu labs The patient was seen and examined at bedside and all new and available data was reviewed in the patients chart. I agree with the above findings, impression and plan. (Patient seen earlier today. Signature stamp does not reflect patient encounter time.). - Olga Lidia Sierra MD Subjective Subjective limited Objective Last 24 Hour Vital Signs Date Time Temp Pulse Resp B/P (MAP) Pulse Ox O2 Delivery O2 Flow Rate FiO2 07/29/17 11:00 98 37 89/50 96 Mechanical Ventilator 60 07/29/17 10:00 99 36 105/54 96 Mechanical Ventilator 60 07/29/17 09:00 60 07/29/17 09:00 99 103/42 07/29/17 09:00 106 36 97/62 97 Mechanical Ventilator 60 07/29/17 08:50 103 37 60 07/29/17 08:00 98 07/29/17 08:00 98.2 106 37 97/49 97 Mechanical Ventilator 60 07/29/17 07:05 112 30 97 Mechanical Ventilator 60 07/29/17 07:00 108 35 115/60 93 Mechanical Ventilator 60 07/29/17 07:00 106 37 94 Mechanical Ventilator 60 07/29/17 07:00 106 42 60 07/29/17 06:00 116 37 125/53 95 Mechanical Ventilator 60 07/29/17 05:00 103 34 112/55 96 Mechanical Ventilator 60 07/29/17 04:49 98 43 60 07/29/17 04:00 98.6 102 23 104/72 98 Mechanical Ventilator 60 07/29/17 04:00 107 07/29/17 04:00 60 07/29/17 03:00 100 25 102/56 97 Mechanical Ventilator 60 07/29/17 02:21 112 41 60 07/29/17 02:00 94 30 120/64 92 Mechanical Ventilator 60 07/29/17 01:29 103 40 95 Mechanical Ventilator 60 07/29/17 01:24 110 37 90 Mechanical Ventilator 60 07/29/17 01:00 107 41 60 07/29/17 01:00 100 34 110/66 93 Mechanical Ventilator 60 07/29/17 00:00 60 07/29/17 00:00 101 07/29/17 00:00 98.7 91 30 115/68 93 Mechanical Ventilator 60 07/28/17 23:08 103 44 60 07/28/17 23:00 101 36 116/51 95 Mechanical Ventilator 60 07/28/17 22:00 97 36 120/62 95 Mechanical Ventilator 60 07/28/17 21:19 107 113/58 07/28/17 21:05 101 41 60 07/28/17 21:00 98 40 113/46 99 Mechanical Ventilator 60 07/28/17 20:00 90 07/28/17 20:00 60 07/28/17 20:00 98.9 106 39 125/58 95 Mechanical Ventilator 60 07/28/17 19:05 101 41 99 Mechanical Ventilator 60 07/28/17 19:00 108 45 60 07/28/17 19:00 98 38 121/67 96 Mechanical Ventilator 60 07/28/17 19:00 108 33 98 Mechanical Ventilator 90 07/28/17 18:00 114 33 122/67 96 Mechanical Ventilator 60 07/28/17 17:00 107 33 113/52 96 Mechanical Ventilator 60 07/28/17 16:59 101 41 60 07/28/17 16:00 123 07/28/17 16:00 98.5 123 34 123/58 97 Mechanical Ventilator 60 07/28/17 16:00 60 07/28/17 15:50 89 42 60 07/28/17 15:00 97 33 111/44 96 Mechanical Ventilator 60 07/28/17 14:00 98 33 110/44 95 Mechanical Ventilator 60 07/28/17 13:43 94 34 100 Mechanical Ventilator 60 07/28/17 13:00 96 35 108/45 98 Mechanical Ventilator 60 07/28/17 12:39 86 36 100 Mechanical Ventilator 90 07/28/17 12:38 88 36 60 07/28/17 12:00 98.3 95 32 111/44 95 Mechanical Ventilator 60 07/28/17 12:00 103 07/28/17 12:00 60 Intake and Output 07/28/17 07/29/17 19:00 07:00 Intake Total 793.2 ml 897 ml Output Total 230 ml 280 ml Balance 563.2 ml 617 ml IV Total 793.2 ml 847 ml Other 50 ml Output Urine Total 230 ml 280 ml Laboratory Tests Test 07/29/17 06:00 07/29/17 09:22 White Blood Count 20.9 K/UL (4.8-10.8) H Red Blood Count 3.85 M/UL (4.20-5.40) L Hemoglobin 10.9 G/DL (12.0-16.0) L Hematocrit 34.7 % (37.0-47.0) L Mean Corpuscular Volume 90 FL (80-99) Mean Corpuscular Hemoglobin 28.4 PG (27.0-31.0) Mean Corpuscular Hemoglobin Concent 31.5 G/DL (32.0-36.0) L Red Cell Distribution Width 19.6 % (11.6-14.8) H Platelet Count 154 K/UL (150-450) Mean Platelet Volume 9.7 FL (6.5-10.1) Neutrophils (%) (Auto) % (45.0-75.0) Lymphocytes (%) (Auto) % (20.0-45.0) Monocytes (%) (Auto) % (1.0-10.0) Eosinophils (%) (Auto) % (0.0-3.0) Basophils (%) (Auto) % (0.0-2.0) Differential Total Cells Counted 100 Neutrophils % (Manual) 96 % (45-75) H Lymphocytes % (Manual) 2 % (20-45) L Monocytes % (Manual) 2 % (1-10) Eosinophils % (Manual) 0 % (0-3) Basophils % (Manual) 0 % (0-2) Band Neutrophils 0 % (0-8) Platelet Estimate Adequate Platelet Morphology Normal Hypochromasia 1+ Anisocytosis 1+ Prothrombin Time 22.7 SEC (9.30-11.50) H Prothromb Time International Ratio 2.2 (0.9-1.1) H Activated Partial Thromboplast Time 50 SEC (23-33) H Sodium Level 147 MMOL/L (136-145) H Potassium Level 4.0 MMOL/L (3.5-5.1) Chloride Level 113 MMOL/L (98-107) H Carbon Dioxide Level 26 MMOL/L (21-32) Anion Gap 8 mmol/L (5-15) Blood Urea Nitrogen 34 mg/dL (7-18) H Creatinine 1.2 MG/DL (0.55-1.30) Estimat Glomerular Filtration Rate mL/min (>60) Glucose Level 140 MG/DL (74-106) H Calcium Level 6.6 MG/DL (8.5-10.1) L Arterial Blood pH 7.409 (7.350-7.450) Arterial Blood Partial Pressure CO2 43.6 mmHg (35.0-45.0) Arterial Blood Partial Pressure O2 75.8 mmHg (75.0-100.0) Arterial Blood HCO3 27.0 mmol/L (22.0-26.0) H Arterial Blood Oxygen Saturation 94.3 % (92.0-98.0) Arterial Blood Base Excess 2.0 Jamie Test Positive Height (Feet): 5 Height (Inches): 2.00 Weight (Pounds): 143 General Appearance: alert Cardiovascular: normal rate, other Respiratory/Chest: [facility] Abdominal Exam: GT site - c/d/i [place] Colon N.P. Jul 29, 2017 11:55 MITUL SIERRA Aug 04, 2017 12:23
--- NOTE | 2017-07-29 12:43 | Diagnostic Imaging Report ---
Indication: Dyspnea Comparison: 07/28/2017 A single view chest radiograph was obtained. Findings: Fairly extensive patchy airspace disease noted bilaterally. Right size remains relatively normal. Tubes and lines are stable. IMPRESSION: No significant change management coordinator the last day
[2017-07-29] MEDS ORDERED: Lidocaine 1% 10mg/ml/Epi 0.005mg/ml 30ml vial INJ ONE (13:12)
--- NOTE | 2017-07-29 13:12 | Anethesia Preoperative Eval ---
Anesthesia Pre-op PMH/ROS General Date of Evaluation: Jul 29, 2017 Anesthesiologist: Heriberto ASA Score: ASA 3 Mallampati Score Class I : Soft palate, uvula, fauces, pillars visible Class II: Soft palate, uvula, fauces visible Class III: Soft palate, base of uvula visible Class IV: Only hard plate visible Mallampati Classification: Class II Surgeon: Eligio Diagnosis: Respiratory failure Surgical Procedure: Trach Anesthesia History: none Family History: no anesthesia problems Allergies: Coded Allergies: No Known Allergies (Unverified , 05/25/13) Medications: see eMAR Past Medical History Cardiovascular: Reports: HTN, CAD - s/p NSTEMI, arrhythmia - paeroxysmal afib, other - carotid stenosis, Denies: HI, valve dz Pulmonary: Denies: asthma, COPD, BONG, other Gastrointestinal/Genitourinary: Reports: GERD, Denies: CRI, ESRD, other Neurologic/Psychiatric: Reports: dementia - alzheimers, Denies: CVA, depression/anxiety, TIA, other Endocrine: Denies: DM, hypothyroidism, steroids, other HEENT: Denies: cataract (L), cataract (R), glaucoma, INUPIAT (L), INUPIAT (R), other Hematology/Immune: Reports: anemia - chronic, Denies: DVT, bleeding disorder, other Musculoskeletal/Integumentary: Reports: OA, Denies: RA, DJD, DDD, edema, other PSxH Narrative: g-tube Anesthesia Pre-op Phys. Exam Physician Exam Last Vital Signs Date Time Temp Pulse Resp B/P (MAP) Pulse Ox O2 Delivery O2 Flow Rate FiO2 07/29/17 12:00 98.9 98 29 97/47 95 Mechanical Ventilator 60 07/24/17 19:29 1.0 Constitutional: NAD Cardiovascular: RRR Respiratory: CTA Airway Exam Mallampati Score: Class II Anesthesia Pre-op A/P Labs Hematology Test 07/29/17 06:00 White Blood Count 20.9 K/UL (4.8-10.8) H Red Blood Count 3.85 M/UL (4.20-5.40) L Hemoglobin 10.9 G/DL (12.0-16.0) L Hematocrit 34.7 % (37.0-47.0) L Mean Corpuscular Volume 90 FL (80-99) Mean Corpuscular Hemoglobin 28.4 PG (27.0-31.0) Mean Corpuscular Hemoglobin Concent 31.5 G/DL (32.0-36.0) L Red Cell Distribution Width 19.6 % (11.6-14.8) H Platelet Count 154 K/UL (150-450) Mean Platelet Volume 9.7 FL (6.5-10.1) Neutrophils (%) (Auto) % (45.0-75.0) Lymphocytes (%) (Auto) % (20.0-45.0) Monocytes (%) (Auto) % (1.0-10.0) Eosinophils (%) (Auto) % (0.0-3.0) Basophils (%) (Auto) % (0.0-2.0) Differential Total Cells Counted 100 Neutrophils % (Manual) 96 % (45-75) H Lymphocytes % (Manual) 2 % (20-45) L Monocytes % (Manual) 2 % (1-10) Eosinophils % (Manual) 0 % (0-3) Basophils % (Manual) 0 % (0-2) Band Neutrophils 0 % (0-8) Platelet Estimate Adequate Platelet Morphology Normal Hypochromasia 1+ Anisocytosis 1+ Coagulation Test 07/29/17 06:00 Prothrombin Time 22.7 SEC (9.30-11.50) H Prothromb Time International Ratio 2.2 (0.9-1.1) H Activated Partial Thromboplast Time 50 SEC (23-33) H Chemistry Test 07/29/17 06:00 Sodium Level 147 MMOL/L (136-145) H Potassium Level 4.0 MMOL/L (3.5-5.1) Chloride Level 113 MMOL/L (98-107) H Carbon Dioxide Level 26 MMOL/L (21-32) Anion Gap 8 mmol/L (5-15) Blood Urea Nitrogen 34 mg/dL (7-18) H Creatinine 1.2 MG/DL (0.55-1.30) Estimat Glomerular Filtration Rate mL/min (>60) Glucose Level 140 MG/DL (74-106) H Calcium Level 6.6 MG/DL (8.5-10.1) L Studies Pre-op Studies: EKG - sr Risk Assessment & Plan Assessment: ASA III Plan: GA Status Change Before Surgery: No Pre-Antibiotics Drug: Ancef 1g Given Within 1 Hr of Incision: Yes MARLIN BERNAL M.D. Jul 29, 2017 13:12
[2017-07-29] MEDS ORDERED: fentaNYL 100 mcg/2 mL IV ONE (13:14)
[2017-07-29] MEDS ORDERED: Zemuron 50mg/5ml Inj IV ONE (13:14)
[2017-07-29] MEDS ORDERED: Midazolam 2mg/2ml Inj ONE (13:14)
[2017-07-29] MEDS ORDERED: Lidocaine 1% MPF 10mg/ml 5ml ONE (13:14)
[2017-07-29] MEDS ORDERED: Propofol 200mg/20ml IV ONE (13:14)
--- NOTE | 2017-07-29 13:15 | Immediate Post-Op Evaluation ---
Immediate Post-Op Evalulation Immediate Post-Op Evalulation Procedure: Tracheostomy Date of Evaluation: Jul 29, 2017 IV Fluids: 200 Blood Products: 0 Estimated Blood Loss: min Urinary Output: 0 Blood Pressure Systolic: 114 Blood Pressure Diastolic: 63 Pulse Rate: 90 Respiratory Rate: 16 O2 Sat by Pulse Oximetry: 100 Temperature (Fahrenheit): 98.1 Pain Score (1-10): 0 Nausea: No Vomiting: No Complications 0 Patient Status: awake, reacts, patent, none Hydration Status: adequate Drug: Ancef 1g Given Within 1 Hr of Incision: MARLIN Coleman M.D. Jul 29, 2017 13:15
[2017-07-29] MEDS ORDERED: Bacitracin Oint 15gm Tube TOPIC ONE (14:01)
--- NOTE | 2017-07-29 14:17 | Brief Operative Note ---
Immediate Post Operative Note Operative Note Pre-op Diagnosis: respiratory failure requiring prolonged ventilatory support. Procedure: tracheostomy Findings: consistent w/pre-op dx studies Surgeon: lynsey Anesthesiologist: patria Anesthesia: general, local Specimen: none Complications: none Condition: stable Fluids: see records Estimated Blood Loss: minimal Drains: none Implant(s) used?: Yes - 8f Teo Manning Jul 29, 2017 14:17
--- NOTE | 2017-07-29 14:33 | Immediate Post-Op Evaluation ---
Immediate Post-Op Evalulation Immediate Post-Op Evalulation Procedure: Tracheostomy Date of Evaluation: Jul 29, 2017 Time of Evaluation: 14:26 IV Fluids: 200 Blood Products: 0 Estimated Blood Loss: min Urinary Output: 0 Blood Pressure Systolic: 104 Blood Pressure Diastolic: 71 Pulse Rate: 90 Respiratory Rate: 16 O2 Sat by Pulse Oximetry: 99 Temperature (Fahrenheit): 97.4 Pain Score (1-10): 0 Nausea: No Vomiting: No Complications 0 Patient Status: awake, reacts, patent, none Hydration Status: adequate Drug: Ancef 1g Given Within 1 Hr of Incision: Yes Time Given: 13:30 MARLIN BERNAL M.D. Jul 29, 2017 14:33
--- NOTE | 2017-07-29 15:55 | General Progress Note ---
Assessment/Plan Problem List: (1) Acute respiratory failure with hypoxia and hypercapnia ICD Codes: J96.01 - Acute respiratory failure with hypoxia; J96.02 - Acute respiratory failure with hypercapnia SNOMED: 70373031, 51165707, 694362827 (2) Severe sepsis ICD Codes: A41.9 - Sepsis, unspecified organism; R65.20 - Severe sepsis without septic shock SNOMED: 09927885 (3) HCAP vs Aspiration pneumonia (4) UTI (urinary tract infection) ICD Codes: N39.0 - Urinary tract infection, site not specified SNOMED: 85186538 (5) Lactic acid acidosis ICD Codes: E87.2 - Acidosis SNOMED: 58000013 (6) NSTEMI (non-ST elevated myocardial infarction) ICD Codes: I21.4 - Non-ST elevation (NSTEMI) myocardial infarction SNOMED: 046873109 (7) Acute on chronic anemia (8) Hyponatremia ICD Codes: E87.1 - Hypo-osmolality and hyponatremia SNOMED: 44686019 (9) paroxsymal atrial fibrillation (10) CAD s/p PCI (11) Ischemic cardiomyopathy ICD Codes: I25.5 - Ischemic cardiomyopathy SNOMED: 526272359 (12) CVA (cerebral vascular accident) ICD Codes: I63.9 - Cerebral infarction, unspecified SNOMED: 894364540 (13) Alzheimer's dementia ICD Codes: G30.9 - Alzheimer's disease, unspecified SNOMED: 59646092 Status: stable Assessment/Plan Continue in ICU Pulm, cardiology, ID, GI consulted, appreciate rec's s/p extubation on 07/21/17 re-intubated on 07/26/17 s/p trach on 07/29/17 Lasix 40mg IV BID F/u FFWU sent 07/24 given rising WBC Cont Vanco, Meropenem per ID; started flagyl and diflucan F/u cultures Neurology consulted given new onset slurred speech. CT head negative. F/u EEG Trend CBC, BMP, lactate Trend trop/EKG --> trop downtrending F/u TTE --> 45% EF with mild LVDD Cont heparin gtt per cardiology (Eliquis on hold) s/p 1 unit pRBC transfusion 07/17. Gastric lavage on 07/17 showed e/o bleeding but currently no active signs of bleeding Patient will eventually need EGD/colonoscopy to assess for GIB given acute drop in hemoglobin and positive FOBT. However, patient is unstable at the moment given NSTEMI/elevated trops. Awaiting cardiac clearance Continue PPI gtt Continue IV venofer Cont G-tube feedings per GI Supportive care DVT Prophylaxis: SCD, heparin gtt Code Status: Full per discussion w/ pt's DPOA/daughter Hospital Classification Declaration: Based on this initial evaluation, and depending on the patient's clinical course, I anticipate that this patient will require hospitalization for 2-3 days for acute respiratory faiure, severe sepsis and close respiratory/hemodynamic monitoring. Disposition: Once the patient is stable to leave the hospital, I anticipate the patient will likely be discharged to the following environment: back to SNF At the time of my involvement, the patient's condition was critical with high potential for and/or physiologic deterioration secondary to acute respiratory failure, severe sepsis as delineated in the note above. On the above date of service, I spent a total of 36 minutes in the ICU evaluating, managing, and providing critical care services to this patient, including time spent documenting these activities, counseling patient/family, and coordinating care. Critical care services performed include: Telemetry Review Hemodynamic measurement interpretation Laboratory data review and interpretation BiPAP setting review, management, and adjustment Discussion of care plans with patient, family, and/or surrogate decision makers Discussion of patient's care with primary medical team, surgical team, and/or consulting service Decision to obtain further radiologic evaluation, after consideration of risk/ benefit ratio Review of most recent microbiology results with assessment and modification of antimicrobial coverage Discussion of patient's code status and further advancement towards the ultimate goals of care Plan outlined above discussed with patient/family, COATER OPERATOR, ICU team, and involved physicians/consultants. Time of note may not reflect time of encounter. Subjective Date patient seen: Jul 29, 2017 Time patient seen: 15:55 Allergies: Coded Allergies: No Known Allergies (Unverified , 05/25/13) Subjective No acute o/n events s/p trach o n109/29/16 Cont on vent Pt lethargic, arousable Objective Last 24 Hour Vital Signs Date Time Temp Pulse Resp B/P (MAP) Pulse Ox O2 Delivery O2 Flow Rate FiO2 07/29/17 15:00 98.1 112 16 114/63 100 Mechanical Ventilator 100 07/29/17 15:00 112 16 100 12/27/17 14:33 90 16 99 07/29/17 14:00 100 07/29/17 13:34 110 37 96 Mechanical Ventilator 60 07/29/17 13:15 Mechanical Ventilator 60 07/29/17 13:15 110 39 60 07/29/17 13:00 100 37 97/49 96 Mechanical Ventilator 60 07/29/17 12:00 98.9 98 29 97/47 95 Mechanical Ventilator 60 07/29/17 12:00 87 07/29/17 12:00 60 07/29/17 11:20 102 39 60 07/29/17 11:00 98 37 89/50 96 Mechanical Ventilator 60 07/29/17 10:00 99 36 105/54 96 Mechanical Ventilator 60 07/29/17 09:00 60 07/29/17 09:00 99 103/42 07/29/17 09:00 106 36 97/62 97 Mechanical Ventilator 60 07/29/17 08:50 103 37 60 07/29/17 08:00 98 07/29/17 08:00 98.2 106 37 97/49 97 Mechanical Ventilator 60 07/29/17 07:05 112 30 97 Mechanical Ventilator 60 07/29/17 07:00 108 35 115/60 93 Mechanical Ventilator 60 07/29/17 07:00 106 37 94 Mechanical Ventilator 60 07/29/17 07:00 106 42 60 07/29/17 06:00 116 37 125/53 95 Mechanical Ventilator 60 07/29/17 05:00 103 34 112/55 96 Mechanical Ventilator 60 07/29/17 04:49 98 43 60 07/29/17 04:00 98.6 102 23 104/72 98 Mechanical Ventilator 60 07/29/17 04:00 107 07/29/17 04:00 60 07/29/17 03:00 100 25 102/56 97 Mechanical Ventilator 60 07/29/17 02:21 112 41 60 07/29/17 02:00 94 30 120/64 92 Mechanical Ventilator 60 07/29/17 01:29 103 40 95 Mechanical Ventilator 60 07/29/17 01:24 110 37 90 Mechanical Ventilator 60 07/29/17 01:00 107 41 60 07/29/17 01:00 100 34 110/66 93 Mechanical Ventilator 60 07/29/17 00:00 60 07/29/17 00:00 101 07/29/17 00:00 98.7 91 30 115/68 93 Mechanical Ventilator 60 07/28/17 23:08 103 44 60 07/28/17 23:00 101 36 116/51 95 Mechanical Ventilator 60 07/28/17 22:00 97 36 120/62 95 Mechanical Ventilator 60 07/28/17 21:19 107 113/58 07/28/17 21:05 101 41 60 07/28/17 21:00 98 40 113/46 99 Mechanical Ventilator 60 07/28/17 20:00 90 07/28/17 20:00 60 07/28/17 20:00 98.9 106 39 125/58 95 Mechanical Ventilator 60 07/28/17 19:05 101 41 99 Mechanical Ventilator 60 07/28/17 19:00 108 45 60 07/28/17 19:00 98 38 121/67 96 Mechanical Ventilator 60 07/28/17 19:00 108 33 98 Mechanical Ventilator 90 07/28/17 18:00 114 33 122/67 96 Mechanical Ventilator 60 07/28/17 17:00 107 33 113/52 96 Mechanical Ventilator 60 07/28/17 16:59 101 41 60 07/28/17 16:00 123 07/28/17 16:00 98.5 123 34 123/58 97 Mechanical Ventilator 60 07/28/17 16:00 60 Intake and Output 07/28/17 07/29/17 19:00 07:00 Intake Total 793.2 ml 897 ml Output Total 230 ml 280 ml Balance 563.2 ml 617 ml IV Total 793.2 ml 847 ml Other 50 ml Output Urine Total 230 ml 280 ml Laboratory Tests 07/29/17 06:00: White Blood Count 20.9H, Red Blood Count 3.85L, Hemoglobin 10.9L, Hematocrit 34.7L, Mean Corpuscular Volume 90, Mean Corpuscular Hemoglobin 28.4, Mean Corpuscular Hemoglobin Concent 31.5L, Red Cell Distribution Width 19.6H, Platelet Count 154, Mean Platelet Volume 9.7, Neutrophils (%) (Auto) , Lymphocytes (%) (Auto) , Monocytes (%) (Auto) , Eosinophils (%) (Auto) , Basophils (%) (Auto) , Differential Total Cells Counted 100, Neutrophils % ( Manual) 96H, Lymphocytes % (Manual) 2L, Monocytes % (Manual) 2, Eosinophils % ( Manual) 0, Basophils % (Manual) 0, Band Neutrophils 0, Platelet Estimate Adequate, Platelet Morphology Normal, Hypochromasia 1+, Anisocytosis 1+, Prothrombin Time 22.7H, Prothromb Time International Ratio 2.2H, Activated Partial Thromboplast Time 50H, Sodium Level 147H, Potassium Level 4.0, Chloride Level 113H, Carbon Dioxide Level 26, Anion Gap 8, Blood Urea Nitrogen 34H, Creatinine 1.2, Estimat Glomerular Filtration Rate , Glucose Level 140H, Calcium Level 6.6L 07/29/17 09:22: Arterial Blood pH 7.409, Arterial Blood Partial Pressure CO2 43.6, Arterial Blood Partial Pressure O2 75.8, Arterial Blood HCO3 27.0H, Arterial Blood Oxygen Saturation 94.3, Arterial Blood Base Excess 2.0, Jamie Test Positive 07/29/17 14:22: Arterial Blood pH 7.132*L, Arterial Blood Partial Pressure CO2 82.2*H, Arterial Blood Partial Pressure O2 131.9H, Arterial Blood HCO3 26.9H, Arterial Blood Oxygen Saturation 97.4, Arterial Blood Base Excess -3.7, Jamie Test Positive Height (Feet): 5 Height (Inches): 0.00 Weight (Pounds): 143 Objective General: awake, alert, lethargic, on BiPAP Head: normocephalic, without obvious abnormality, atraumatic Eyes: conjunctivae/corneas clear. PERRL, EOM's intact Throat: lips, mucosa, and tongue normal. MMM Neck: supple, symmetrical, trachea midline, and no JVD Lungs: clear to auscultation bilaterally Heart: regular rate and rhythm, S1, S2 normal, no murmur, click, rub or gallop Abdomen: soft, non-tender, non-distended, bowel sounds normal; +PEG c/d/i Extremities: extremities normal, atraumatic, no cyanosis or edema Pulses: 2+ and symmetric Skin: skin color, texture, turgor normal; no rashes or lesions Neurologic: Kilo Manrique M.D. Jul 29, 2017 15:55
--- NOTE | 2017-07-29 17:17 | Cardiac Electrophysiology PN ---
Assessment/Plan Assessment/Plan 1. [id number] myocardial infarction in the setting of left bundle-branch block and severely anemia. Repeat EKG showed normal sinus rhythm with low- voltage QRS, but no ST elevation and left bundle-branch block has already been resolved. Her echocardiogram also showed ejection fraction of 50% with no evidence of left ventricular hypertrophy with mild diastolic dysfunction. Continue medical therapy with Lopressor. 2. Vent dependent Respiratory failure. Ejection fraction is normal. She has only mild diastolic dysfunction, but the BNP is elevated. This is likely due to the patient's sepsis. S/P Tracheostomy. 3. Acute toxic metabolic encephalopathy on chronic dementia. 4. Acute anemia due to gi bleed,s/p blood transfusion. 5. Lactic acidosis, likely due to sepsis. DW RN Subjective Subjective Just underwent tracheostomy today. On Vent with 100% Fio2. RN at bedside. Objective Last 24 Hour Vital Signs Date Time Temp Pulse Resp B/P (MAP) Pulse Ox O2 Delivery O2 Flow Rate FiO2 07/29/17 16:00 109 07/29/17 16:00 112 16 120/47 100 Mechanical Ventilator 100 07/29/17 15:00 98.1 112 16 114/63 100 Mechanical Ventilator 100 07/29/17 15:00 112 16 100 07/29/17 14:33 90 16 99 07/29/17 14:00 100 07/29/17 13:34 110 37 96 Mechanical Ventilator 60 07/29/17 13:15 Mechanical Ventilator 60 07/29/17 13:15 110 39 60 07/29/17 13:00 100 37 97/49 96 Mechanical Ventilator 60 07/29/17 12:00 98.9 98 29 97/47 95 Mechanical Ventilator 60 07/29/17 12:00 87 07/29/17 12:00 60 07/29/17 11:20 102 39 60 07/29/17 11:00 98 37 89/50 96 Mechanical Ventilator 60 07/29/17 10:00 99 36 105/54 96 Mechanical Ventilator 60 07/29/17 09:00 60 07/29/17 09:00 99 103/42 07/29/17 09:00 106 36 97/62 97 Mechanical Ventilator 60 07/29/17 08:50 103 37 60 07/29/17 08:00 98 07/29/17 08:00 98.2 106 37 97/49 97 Mechanical Ventilator 60 07/29/17 07:05 112 30 97 Mechanical Ventilator 60 07/29/17 07:00 108 35 115/60 93 Mechanical Ventilator 60 07/29/17 07:00 106 37 94 Mechanical Ventilator 60 07/29/17 07:00 106 42 60 07/29/17 06:00 116 37 125/53 95 Mechanical Ventilator 60 07/29/17 05:00 103 34 112/55 96 Mechanical Ventilator 60 07/29/17 04:49 98 43 60 07/29/17 04:00 98.6 102 23 104/72 98 Mechanical Ventilator 60 07/29/17 04:00 107 07/29/17 04:00 60 07/29/17 03:00 100 25 102/56 97 Mechanical Ventilator 60 07/29/17 02:21 112 41 60 07/29/17 02:00 94 30 120/64 92 Mechanical Ventilator 60 07/29/17 01:29 103 40 95 Mechanical Ventilator 60 07/29/17 01:24 110 37 90 Mechanical Ventilator 60 07/29/17 01:00 107 41 60 07/29/17 01:00 100 34 110/66 93 Mechanical Ventilator 60 07/29/17 00:00 60 07/29/17 00:00 101 07/29/17 00:00 98.7 91 30 115/68 93 Mechanical Ventilator 60 07/28/17 23:08 103 44 60 07/28/17 23:00 101 36 116/51 95 Mechanical Ventilator 60 07/28/17 22:00 97 36 120/62 95 Mechanical Ventilator 60 07/28/17 21:19 107 113/58 07/28/17 21:05 101 41 60 07/28/17 21:00 98 40 113/46 99 Mechanical Ventilator 60 07/28/17 20:00 90 07/28/17 20:00 60 07/28/17 20:00 98.9 106 39 125/58 95 Mechanical Ventilator 60 07/28/17 19:05 101 41 99 Mechanical Ventilator 60 07/28/17 19:00 108 45 60 07/28/17 19:00 98 38 121/67 96 Mechanical Ventilator 60 07/28/17 19:00 108 33 98 Mechanical Ventilator 90 07/28/17 18:00 114 33 122/67 96 Mechanical Ventilator 60 Intake and Output 07/28/17 07/29/17 19:00 07:00 Intake Total 793.2 ml 897 ml Output Total 230 ml 280 ml Balance 563.2 ml 617 ml IV Total 793.2 ml 847 ml Other 50 ml Output Urine Total 230 ml 280 ml Laboratory Tests Test 07/29/17 06:00 07/29/17 09:22 07/29/17 14:22 White Blood Count 20.9 K/UL (4.8-10.8) H Red Blood Count 3.85 M/UL (4.20-5.40) L Hemoglobin 10.9 G/DL (12.0-16.0) L Hematocrit 34.7 % (37.0-47.0) L Mean Corpuscular Volume 90 FL (80-99) Mean Corpuscular Hemoglobin 28.4 PG (27.0-31.0) Mean Corpuscular Hemoglobin Concent 31.5 G/DL (32.0-36.0) L Red Cell Distribution Width 19.6 % (11.6-14.8) H Platelet Count 154 K/UL (150-450) Mean Platelet Volume 9.7 FL (6.5-10.1) Neutrophils (%) (Auto) % (45.0-75.0) Lymphocytes (%) (Auto) % (20.0-45.0) Monocytes (%) (Auto) % (1.0-10.0) Eosinophils (%) (Auto) % (0.0-3.0) Basophils (%) (Auto) % (0.0-2.0) Differential Total Cells Counted 100 Neutrophils % (Manual) 96 % (45-75) H Lymphocytes % (Manual) 2 % (20-45) L Monocytes % (Manual) 2 % (1-10) Eosinophils % (Manual) 0 % (0-3) Basophils % (Manual) 0 % (0-2) Band Neutrophils 0 % (0-8) Platelet Estimate Adequate Platelet Morphology Normal Hypochromasia 1+ Anisocytosis 1+ Prothrombin Time 22.7 SEC (9.30-11.50) H Prothromb Time International Ratio 2.2 (0.9-1.1) H Activated Partial Thromboplast Time 50 SEC (23-33) H Sodium Level 147 MMOL/L (136-145) H Potassium Level 4.0 MMOL/L (3.5-5.1) Chloride Level 113 MMOL/L (98-107) H Carbon Dioxide Level 26 MMOL/L (21-32) Anion Gap 8 mmol/L (5-15) Blood Urea Nitrogen 34 mg/dL (7-18) H Creatinine 1.2 MG/DL (0.55-1.30) Estimat Glomerular Filtration Rate mL/min (>60) Glucose Level 140 MG/DL (74-106) H Calcium Level 6.6 MG/DL (8.5-10.1) L Arterial Blood pH 7.409 (7.350-7.450) 7.132 (7.350-7.450) Arterial Blood Partial Pressure CO2 43.6 mmHg (35.0-45.0) 82.2 mmHg (35.0-45.0) *H Arterial Blood Partial Pressure O2 75.8 mmHg (75.0-100.0) 131.9 mmHg (75.0-100.0) H Arterial Blood HCO3 27.0 mmol/L (22.0-26.0) H 26.9 mmol/L (22.0-26.0) H Arterial Blood Oxygen Saturation 94.3 % (92.0-98.0) 97.4 % (92.0-98.0) Arterial Blood Base Excess 2.0 -3.7 Jamie Test Positive Positive Objective HEAD AND NECK: Shows no JVD.S/P Tracheostomy LUNGS: Decreased breath sounds. Coarse rhonchi. CARDIOVASCULAR: Shows regular S1 and S2 with no gallop. ABDOMEN: Soft. PEG intact EXTREMITIES: No pitting edema. CHELSIE HOUSTON Jul 29, 2017 17:17
--- NOTE | 2017-07-29 17:30 | Operative Note - Dictated ---
DATE OF OPERATION: 07/29/2017 PREOPERATIVE DIAGNOSIS: Respiratory failure requiring intubation and prolonged ventilator support. POSTOPERATIVE DIAGNOSIS: Respiratory failure requiring intubation and prolonged ventilator support. OPERATION PERFORMED: Tracheostomy. ATTENDING SURGEON: Teo Del Valle M.D. CARDIOLOGY COORDINATOR: None. ANESTHESIOLOGIST: July Louis M.D. ANESTHESIA: General SUPERVISOR IN CHARGE. ESTIMATED BLOOD LOSS: Minimal. COMPLICATIONS: None. IV FLUIDS: Please see anesthesia records. WOUND CLASSIFICATION: Class I. COUNTS: Sponge and needle count correct x2. SPECIMENS: None. DRAINS: None. IMPLANTS: An 8-[place] Shiley cuffed tracheostomy tube inserted. INDICATIONS FOR PROCEDURE: This is an 87-year-old female with respiratory failure requiring intubation and prolonged ventilatory support. She has been unable to be weaned off the ventilator for significant amount of time and with history and current medical status, likely to be on ventilator support for a while. Given this, tracheostomy was indicated and recommended. Risks, benefits, and alternatives were discussed with the patient's daughter, who consented to surgery. Consent in chart. OPERATIVE NOTE: The patient was taken to the operating room directly from the intensive care unit, placed on the hospital bed comfortably. A shoulder roll was placed and neck was hyperextended. All bony prominences were well padded. The patient prior to entering the operating room already had an ET tube and Bryant in place. SCDs were initiated. Preoperative time-out was taken identifying the patient, procedure, operative staff, and surgical staff. The patient was already on scheduled antibiotics prior to entering the operating room. The neck was then prepped and draped in the standard surgical fashion. We began by identifying the landmarks in the neck. An incision was made two fingerbreadths above the sternal notch using a fresh #11 scalpel. Incision was carried down through the subcutaneous tissue, platysma, and fat using electrocautery and blunt dissection as necessary. Once the trachea was identified, the thyroid cartilage, cricoid cartilage, and first and second tracheal rings were identified. At this time with coordination with anesthesiologist, an incision was made into the second tracheal ring and then a flap created. Once this was complete, the balloon of the ET tube was taken down and the ET tube was withdrawn slowly until the tip could be seen. Once the trachea was clear, the 8-[place] Shiley tracheostomy was inserted while holding trachea stable with tracheal hook. Insertion went well without complication. The ventilator was placed onto the tracheostomy, and good support and good pressures were achieved. At this time, the wound was cleansed and the skin incision was reapproximated at the lateral aspects using a 3-0 nylon suture. The trachea was then anchored to the skin using a 2-0 nylon suture. The tracheal tie was placed. Local anesthetic was infiltrated into the skin incision and subcutaneous tissue throughout the procedure. The procedure went without any immediate intra or postoperative complications. The patient tolerated the procedure well. She was transported back to the intensive care unit in stable condition. Teo Del Valle M.D. DR: Inessa JOB#: [id number] CC:
--- NOTE | 2017-07-29 18:41 | Neurology Progress Note ---
Interim History Interim History Interim History Ms. Loving is unresponsive to all stimuli now. She had her tracheostomy placed at ~ 14:00 hrs today. She is much more encephalopathic. She is artificially ventilated via her tracheostomy. Review of Systems Neuro Review of Systems Unable to obtain. Objective Physical Exam Last Vital Signs Date Time Temp Pulse Resp B/P (MAP) Pulse Ox O2 Delivery O2 Flow Rate FiO2 07/29/17 18:00 101 16 107/49 98 Mechanical Ventilator 80 07/29/17 15:00 98.1 07/24/17 19:29 1.0 Laboratory Tests Test 07/29/17 06:00 07/29/17 09:22 07/29/17 14:22 White Blood Count 20.9 K/UL (4.8-10.8) H Red Blood Count 3.85 M/UL (4.20-5.40) L Hemoglobin 10.9 G/DL (12.0-16.0) L Hematocrit 34.7 % (37.0-47.0) L Mean Corpuscular Volume 90 FL (80-99) Mean Corpuscular Hemoglobin 28.4 PG (27.0-31.0) Mean Corpuscular Hemoglobin Concent 31.5 G/DL (32.0-36.0) L Red Cell Distribution Width 19.6 % (11.6-14.8) H Platelet Count 154 K/UL (150-450) Mean Platelet Volume 9.7 FL (6.5-10.1) Neutrophils (%) (Auto) % (45.0-75.0) Lymphocytes (%) (Auto) % (20.0-45.0) Monocytes (%) (Auto) % (1.0-10.0) Eosinophils (%) (Auto) % (0.0-3.0) Basophils (%) (Auto) % (0.0-2.0) Differential Total Cells Counted 100 Neutrophils % (Manual) 96 % (45-75) H Lymphocytes % (Manual) 2 % (20-45) L Monocytes % (Manual) 2 % (1-10) Eosinophils % (Manual) 0 % (0-3) Basophils % (Manual) 0 % (0-2) Band Neutrophils 0 % (0-8) Platelet Estimate Adequate Platelet Morphology Normal Hypochromasia 1+ Anisocytosis 1+ Prothrombin Time 22.7 SEC (9.30-11.50) H Prothromb Time International Ratio 2.2 (0.9-1.1) H Activated Partial Thromboplast Time 50 SEC (23-33) H Sodium Level 147 MMOL/L (136-145) H Potassium Level 4.0 MMOL/L (3.5-5.1) Chloride Level 113 MMOL/L (98-107) H Carbon Dioxide Level 26 MMOL/L (21-32) Anion Gap 8 mmol/L (5-15) Blood Urea Nitrogen 34 mg/dL (7-18) H Creatinine 1.2 MG/DL (0.55-1.30) Estimat Glomerular Filtration Rate mL/min (>60) Glucose Level 140 MG/DL (74-106) H Calcium Level 6.6 MG/DL (8.5-10.1) L Arterial Blood pH 7.409 (7.350-7.450) 7.132 (7.350-7.450) Arterial Blood Partial Pressure CO2 43.6 mmHg (35.0-45.0) 82.2 mmHg (35.0-45.0) *H Arterial Blood Partial Pressure O2 75.8 mmHg (75.0-100.0) 131.9 mmHg (75.0-100.0) H Arterial Blood HCO3 27.0 mmol/L (22.0-26.0) H 26.9 mmol/L (22.0-26.0) H Arterial Blood Oxygen Saturation 94.3 % (92.0-98.0) 97.4 % (92.0-98.0) Arterial Blood Base Excess 2.0 -3.7 Jamie Test Positive Positive Neurologic Exam Objective PHYSICAL EXAMINATION: GENERAL: She is a well-developed, but lean and ill-looking lady, lying in an intensive care unit bed connected to a ventilator via a tracheostomy. HEAD: Normocephalic with a right temporoparietal skull defect. EENT: Examination benign. NECK: No neck rigidity was observed. NEUROLOGICAL EXAMINATION: MENTAL STATUS EXAMINATION: She did not respond even on deep pain. SPEECH: Could not be tested. LANGUAGE: Could not be tested. CRANIAL NERVE EXAMINATION: II: She did not blink to threat. III, IV & : The external ocular movements were restricted on OCM. The pupils were 4 mm in diameter, equal, round, regular, and nonreactive to light. V & VII: The corneal reflexes were significantly subdued. VIII: She was unable to hear and had no nystagmus. IX & X: The gag reflex was not tested. XI: The sternocleidomastoids and trapezii did not function. XII: Could not be tested MOTOR SYSTEM: The tone was flaccid in all four extremities. Examination of muscle mass revealed generalized muscle wasting with bilateral ankle cord contractures. She did not move any extremities on deep pain. SENSORY EXAMINATION: She responded minimally to deep pain. Other sensory modalities could not be tested. REFLEXES: 0 at the biceps, triceps, brachioradialis, knees and ankles. The plantar responses were mute bilaterally. COORDINATION, STANCE & GAIT: Could not be tested. Impression/Recommendations Diagnostic Impression 1. Ms. Beatriz Loving is an 87-year-old, lady, of unknown handedness, who does have a past history of hypertension, coronary artery disease, paroxysmal atrial fibrillation, Alzheimer disease, cerebrovascular disease, and right brain surgery for reasons unknown to us, who lives in a [facility]. She was hospitalized on 07/16/2017 for shortness of breath associated with hypoxia, elevated troponin, a urinary tract infection, and possibly a pneumonic process. She was stabilized and on 07/21/2017 was extubated. Following that, she was brighter, but later on 07/22/17 she was noted to be more somnolent and slurring her speech. 2. 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 3. On neurological examination, at this time, she does have a right temporoparietal skull defect, is unresponsive even to deep pain, has minimal brainstem reflexes, has a flaccid quadriplegia, is unresponsive even to deep pain, and is globally areflexic. 4. The CT scan of the brain without contrast reveals atrophy, deep white matter changes, and a right temporoparietal craniotomy defect, but no acute pathology. 5. Laboratory data on admission revealed that she had a significant leukocytosis with a WBC count of 15.7. She was anemic with a hemoglobin of 9.1. She had a left-sided shift on her white blood cell count. Her arterial blood gas revealed a pCO2 of 51 and a pO2 of 116. A chemistry panel revealed a sodium down to 133, potassium elevated to 5.3, BUN elevated to 24, her glucose elevated to 278, AST elevated to 138, ProBNP was greater than 35,000, her albumin was down to 2.0, and her troponin was elevated to 10.3. Her urinalysis revealed 3+ leukocyte esterase, too numerous to count red blood cells and white blood cells, and many urinary bacteria. 6. The EEG revealed an encephalopathy of moderate degree. 7. Her leukocytosis is worse, she is acidotic and hypercarbic. 8. 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 9. She is much more encephalopathic today and cannot be aroused and exhibits worsening of neurologic function. Recommendations 1. Continue present management. 2. Continue to correct the patient's toxic metabolic imbalances. 3. Correct the patient's anemia to a hemoglobin of greater than 10 G. 4. Observe closely. Ga Fuller M.D., M.S.P.GA REDDY Jul 29, 2017 18:41
[2017-07-29] MEDS ORDERED: D5 1/2NS 1,000 ML IV SCH (19:00)
[2017-07-29] MEDS: Dyna-Hex 2% Top Sol 2oz TOPIC SCH (20:07)
--- NOTE | 2017-07-29 23:00 | Progress Note ---
DATE: 07/29/2017 CARDIOLOGY PROGRESS NOTE SUBJECTIVE: The patient remains on ventilator support. Transfusions with packed red cells were given over the past two days and aspirin was discontinued. The patient remains on beta-sahra. The patient is now status post tracheostomy. OBJECTIVE: VITAL SIGNS: Blood pressure 98/42, pulse 97, respirations 18, and afebrile. LUNGS: Coarse breath sounds. NECK: Thin secretions. HEART: Regular rhythm and rate. Normal S1 and S2. ABDOMEN: Soft. EXTREMITIES: Trace edema. LABORATORY DATA: White count 20.9 and hemoglobin 10.9. Potassium 4, sodium 147, BUN 34, and creatinine 1.2. ABG, 7.13, 82, and 131. IMPRESSION: 1. Acute on chronic respiratory acidosis. 2. Respiratory failure, status post tracheostomy. 3. Status post acute myocardial infarction, recovered. 4. Left bundle-branch block, resolved. 5. Acute on chronic systolic and diastolic congestive heart failure. 6. Sepsis. PLAN: 1. Adjust ventilator settings. 2. Transfuse for hemoglobin less than 8 g. 3. Maintain beta-blockade. 4. Hold anti-platelet therapy. 5. Assess for continued GI bleeding. 6. Prognosis is poor. 7. Condition is critical. Carlos Cruz M.D. DR: OTMER JOB#: [id number] CC:
[2017-07-30] VITALS (16 sets, daily range): BP systolic 88–119; BP diastolic 39–70
--- NOTE | 2017-07-30 00:11 | Diagnostic Imaging Report ---
APPROVED REPORT CPT Code: 87010 Present Symptoms Shortness of breath Comments: BILATERAL: Imaging reveals a patent deep venous system bilaterally. There is no evidence of thrombus within the femoral, popliteal or tibial segments. The greater saphenous veins are also within normal limits. Doppler indicates normal spontaneous flow within these segments.
[2017-07-30] MEDS: Ipratropium 0.02% Inh Soln 2.5ml UD HHN SCH ×3 (01:17→19:00)
[2017-07-30 06:08] LABS: HEMATOCRIT 32.8 % (37.0-47.0); HEMOGLOBIN 9.8 G/DL (12.0-16.0); MEAN CORPUSCULAR VOLUME 95 FL (80-99); PLATELET COUNT 126 K/UL (150-450); RED BLOOD COUNT 3.44 M/UL (4.20-5.40); RED CELL DISTRIBUTION WIDTH 20.8 % (11.6-14.8)
[2017-07-30 06:12] LABS: ANION GAP 6 mmol/L (5-15); BLOOD UREA NITROGEN 42 mg/dL (7-18); CALCIUM 6.5 MG/DL (8.5-10.1); CARBON DIOXIDE 28 MMOL/L (21-32); CHLORIDE 114 MMOL/L (98-107); CREATININE 1.6 MG/DL (0.55-1.30); POTASSIUM 4.1 MMOL/L (3.5-5.1); SODIUM 148 MMOL/L (136-145)
[2017-07-30] MEDS: Meropenem 1 GM in NS 110 ML IVPB SCH ×2 (07:46→21:18)
[2017-07-30] MEDS: Metoprolol Tartrate 12.5mg TAB ORAL SCH (08:09)
[2017-07-30] MEDS: Spironolactone 25mg tab NG SCH (08:09)
[2017-07-30] MEDS: Pantoprazole Inj IVP SCH ×2 (08:14→20:21)
--- NOTE | 2017-07-30 09:31 | Pulmonolgy Critical Care Note ---
Critical Care - Asmt/Plan Assessment/Plan: ASSESSMENT acute hypoxemic respiratory failure requiring intubation s/p extubation s/p reintubation 07/26 failure to wean s/p trach 07/29 sepsis with shock extensive PNA UTI with Staph aureus NSTEMI demand ischemia of myocardium severe diffuse gastropathy upper GI bleeding LBBB NSVT ischemic CM acute on chronic diastolic HF CAD s/p PCI acute toxic metabolic encephalopathy on chronic dementia ( likely due to to sepsis, NSTEMI) hx of CVA acute anemia requiring blood transfusion lactic acidosis transaminitis -resolved severe protein calorie malnutrition dehydration hypernatremia Alzheimer [id number] functional quadriplegia dysphagia, G tube PLAN OF CARE ICU vent support pulmonary toilet reintubated 07/26 due to difficulties marta weaning from BiPAP and difficulties with handling secretions daughter out of state voiced desire for full code, was informed by dr Porter that likely will need trach, agree with plan daughter agreed with trach s/p trach 07/29 fup with CXR and ABG CT C/A/P noted -Extensive airspace disease within the lungs bilaterally etiology unknown. ARDS and diffuse extensive pneumonia are among the differential considerations. trach today abx, ID follows urine cx + E coli MRSA, sputum cx negative, blood cx negative, stool C dif negative, wound cx + Klebsiella,E coli Enterococci off heparin gtt and ASA due to GI bleeding , cardio follows serial troponin c/w NSTEMI, troponin trending down not stable for cardiac cath ECHO with EF 50% and RVSP of 28, mild continue BB as BP allows , statin and cautious diuresis monitor cardiorenal parameters, volumes s/p blood transfusion HH at baseline, monitor HH, with goal to keep Hgb above 8 , stool OB + anemia w/up c/w anemia of chronic disease and has iron deficiency s/p Venofer x5 doses s/p PPI gtt GI follows gastric lavage by GI 07/17 with evidence of GI bleeding G tube feeding, monitor tolerance , strict aspiration precautions PPI IV bid trend LFT likely due to sepsis and shock - down to normal pain management bowel regimen venous Duplex BLE -negative, SCD CT head negative for acute IC pathology neuro follows, EEG abnormal with evidence of moderate encephalopathy, per neuro toxic metabolic encephalopathy superimposed on on old structural brain disease and dementia creat up to 1.6, keep fluid for 1 more day transfer to [facility] will need placement to subacute case discussed and evaluated by supervising physician Critical Care - Objective Last 24 Hour Vital Signs Date Time Temp Pulse Resp B/P (MAP) Pulse Ox O2 Delivery O2 Flow Rate FiO2 07/30/17 09:00 94 25 96/40 97 Mechanical Ventilator 60 07/30/17 08:54 96 28 80 07/30/17 08:09 97 96/43 07/30/17 08:00 60 07/30/17 08:00 93 07/30/17 08:00 98.0 95 24 96/43 97 Mechanical Ventilator 60 07/30/17 07:42 94 25 98 Mechanical Ventilator 60 07/30/17 07:35 92 25 80 07/30/17 07:32 90 22 97 Mechanical Ventilator 60 07/30/17 07:00 92 21 97/40 100 Mechanical Ventilator 60 07/30/17 06:00 90 21 95/43 100 Mechanical Ventilator 60 07/30/17 05:00 91 21 99/50 100 Mechanical Ventilator 60 07/30/17 04:54 86 19 80 07/30/17 04:00 90 07/30/17 04:00 97.8 90 21 98/43 100 Mechanical Ventilator 60 07/30/17 04:00 60 07/30/17 03:28 92 19 80 07/30/17 03:00 92 20 97/43 100 Mechanical Ventilator 60 07/30/17 02:00 88 17 88/39 97 Mechanical Ventilator 60 07/30/17 01:17 91 18 100 Mechanical Ventilator 60 07/30/17 01:12 90 18 100 Mechanical Ventilator 60 07/30/17 01:10 93 19 80 07/30/17 01:00 85 17 100/39 97 Mechanical Ventilator 60 07/30/17 00:00 86 07/30/17 00:00 97.4 93 16 90/39 97 Mechanical Ventilator 60 07/30/17 00:00 60 07/30/17 00:00 60 07/29/17 23:00 86 16 80 07/29/17 23:00 86 16 86/39 94 Mechanical Ventilator 60 07/29/17 22:00 89 16 96/42 97 Mechanical Ventilator 60 07/29/17 21:28 93 104/49 07/29/17 21:00 101 16 80 07/29/17 21:00 93 16 104/49 97 Mechanical Ventilator 60 07/29/17 20:00 97.8 95 16 98/42 97 Mechanical Ventilator 60 07/29/17 20:00 60 07/29/17 19:06 95 16 97 Mechanical Ventilator 60 07/29/17 19:00 60 07/29/17 19:00 97 16 99 Mechanical Ventilator 60 07/29/17 19:00 97 16 80 07/29/17 19:00 97.8 100 16 98/42 100 Mechanical Ventilator 60 07/29/17 18:00 101 16 107/49 98 Mechanical Ventilator 80 07/29/17 17:10 104 16 80 07/29/17 17:00 112 16 112/53 98 Mechanical Ventilator 80 07/29/17 16:00 109 07/29/17 16:00 112 16 120/47 100 Mechanical Ventilator 100 07/29/17 15:15 80 07/29/17 15:00 98.1 112 16 114/63 100 Mechanical Ventilator 100 07/29/17 15:00 112 16 100 07/29/17 14:33 90 16 99 07/29/17 14:00 100 07/29/17 13:34 110 37 96 Mechanical Ventilator 60 07/29/17 13:15 Mechanical Ventilator 60 07/29/17 13:15 110 39 60 07/29/17 13:00 100 37 97/49 96 Mechanical Ventilator 60 07/29/17 12:00 98.9 98 29 97/47 95 Mechanical Ventilator 60 07/29/17 12:00 87 07/29/17 12:00 60 07/29/17 11:20 102 39 60 07/29/17 11:00 98 37 89/50 96 Mechanical Ventilator 60 07/29/17 10:00 99 36 105/54 96 Mechanical Ventilator 60 Objective: Condition: awake, no signs of respiratory distress, in vent AC 400-16-60% HEENT: atraumatic, normocephalic, Neck: Trach Shiley # 8, secretions scant, yellow, thick Lungs: few scattered rhonchi Heart: HR/BP stable, PICC RUE intact Abdomen: soft, non-tender, G tube Extremities: no C/C/E Critical Care - Subjective ROS Limited/Unobtainable: Yes Interval Events: leukocytosis trending down, afebrile s/p trach 07/29 initial ABG after trach with evidence of respiratory acidosis and hypercapnia, currently on 60% FiO2 ABG pending no signs of respiratory distress creat up to 1.6 Condition: improving IV Access: PICC EKG Rhythm: Sinus Tachycardia - in 110th FI02: 60 Vent Support Breath Rate: 16 Vent Support Mode: AC Vent Tidal Volume: 400 Sputum Amount: Small PEEP: 5.0 PIP: 29 Fluids: D51/2 NS at 50 Tube Feeding Amount: 35 I&O: Intake and Output 07/29/17 07/30/17 19:00 07:00 Intake Total 743.337 ml 1060 ml Output Total 110 ml 142 ml Balance 633.337 ml 918 ml Free Water 70 ml IV Total 668.337 ml 600 ml Tube Feeding 75 ml 390 ml Output Urine Total 110 ml 140 ml Stool Total 2 ml # Bowel Movements 4 CXR: 07/29 -Fairly extensive patchy airspace disease noted bilaterally. Right size remains relatively normal. Tubes and lines are stable. Sukumar (Carlos AlbertoFariha choe NP Jul 30, 2017 09:31
--- NOTE | 2017-07-30 10:47 | Diagnostic Imaging Report ---
APPROVED REPORT CPT Code: 14680 Present Symptoms Comments: R/O DVT BILATERAL UPPER EXTREMITY (Deep venous system): Imaging reveals patency of the internal jugular, subclavian, axillary and brachial veins. Imaging also reveals patency of the cephalic and basilic veins. Doppler indicates normal spontaneous flow within these venous segments.
--- NOTE | 2017-07-30 12:08 | Diagnostic Imaging Report ---
Indication: Dyspnea Technique: One view of the chest Comparison: 07/29/2017 Findings: Again demonstrated is diffuse bilateral interstitial and airspace edema versus infiltrates. Interim placement of endotracheal tube with a tracheostomy. No evidence of pneumomediastinum or pneumothorax. Right arm PICC remains. Upper abdominal surgical clips are again demonstrated. Impression: Bilateral extensive diffuse interstitial and alveolar infiltrates versus edema, unchanged over one day Interim exchange of endotracheal tube for tracheostomy. No radiographically evident complication
--- NOTE | 2017-07-30 12:48 | General Progress Note ---
Progress Note Progress Note Surgery: POD # 1 s/p tracheostomy. doing well. trach in place and functional. good volumes. no issues. wound c/d/i. dressings intact and dry. -trach care and management. Teo Del Valle Jul 30, 2017 12:48
--- NOTE | 2017-07-30 12:48 | GI Progress Note ---
Assessment/Plan Problems: (1) S/P percutaneous endoscopic gastrostomy (PEG) tube placement ICD Codes: Z93.1 - Gastrostomy status SNOMED: 261140337 (2) Failure to thrive SNOMED: 66869006 (3) Ventilator dependent ICD Codes: Z99.11 - Dependence on respirator [ventilator] status SNOMED: 801018671 (4) NSTEMI (non-ST elevated myocardial infarction) ICD Codes: I21.4 - Non-ST elevation (NSTEMI) myocardial infarction SNOMED: 123856065 (5) Severe sepsis ICD Codes: A41.9 - Sepsis, unspecified organism; R65.20 - Severe sepsis without septic shock SNOMED: 02466821 (6) Elevated troponin ICD Codes: R74.8 - Abnormal levels of other serum enzymes SNOMED: 802982394, 377061040 (7) Anemia ICD Codes: D64.9 - Anemia, unspecified SNOMED: 540343346 (8) Weakness ICD Codes: R53.1 - Weakness SNOMED: 06300180 (9) Transaminitis ICD Codes: R74.0 - Nonspecific elevation of levels of transaminase and lactic acid dehydrogenase [LDH] SNOMED: 228740476 (10) Protein-calorie malnutrition, severe ICD Codes: E43 - Unspecified severe protein-calorie malnutrition SNOMED: 316021019 (11) Dehydration ICD Codes: E86.0 - Dehydration SNOMED: 08960204 (12) Septic shock ICD Codes: A41.9 - Sepsis, unspecified organism; R65.21 - Severe sepsis with septic shock SNOMED: 66417472 Status: unchanged Status Narrative Discussed with Dr. Sierra. Assessment/Plan Assessment - respiratory failure - dysphagia, s/p prior GJ tube >> now changed to GT - UGIB - no plans for EGD at this time due to LA - NSTEMI - AMS - Anemia - OB stool positive Recommendations trach yesterday EGD to be scheduled pending cardiac clearance, will consider replacement of GJ tube if necessary. GTF per RD monitor H&H closely, stable last few days cardiology f/u PPI q12 abx fu labs Subjective Subjective limited Objective Last 24 Hour Vital Signs Date Time Temp Pulse Resp B/P (MAP) Pulse Ox O2 Delivery O2 Flow Rate FiO2 07/30/17 12:00 98.1 93 29 102/45 96 Mechanical Ventilator 60 07/30/17 12:00 94 07/30/17 12:00 60 07/30/17 11:12 103 24 80 07/30/17 11:00 88 28 91/55 96 Mechanical Ventilator 60 07/30/17 10:00 91 26 91/41 98 Mechanical Ventilator 60 07/30/17 09:00 94 25 96/40 97 Mechanical Ventilator 60 07/30/17 08:54 96 28 80 07/30/17 08:09 97 96/43 07/30/17 08:00 60 07/30/17 08:00 93 07/30/17 08:00 98.0 95 24 96/43 97 Mechanical Ventilator 60 07/30/17 07:42 94 25 98 Mechanical Ventilator 60 07/30/17 07:35 92 25 80 07/30/17 07:32 90 22 97 Mechanical Ventilator 60 07/30/17 07:00 92 21 97/40 100 Mechanical Ventilator 60 07/30/17 06:00 90 21 95/43 100 Mechanical Ventilator 60 07/30/17 05:00 91 21 99/50 100 Mechanical Ventilator 60 07/30/17 04:54 86 19 80 07/30/17 04:00 90 07/30/17 04:00 97.8 90 21 98/43 100 Mechanical Ventilator 60 07/30/17 04:00 60 07/30/17 03:28 92 19 80 07/30/17 03:00 92 20 97/43 100 Mechanical Ventilator 60 07/30/17 02:00 88 17 88/39 97 Mechanical Ventilator 60 07/30/17 01:17 91 18 100 Mechanical Ventilator 60 07/30/17 01:12 90 18 100 Mechanical Ventilator 60 07/30/17 01:10 93 19 80 07/30/17 01:00 85 17 100/39 97 Mechanical Ventilator 60 07/30/17 00:00 86 07/30/17 00:00 97.4 93 16 90/39 97 Mechanical Ventilator 60 07/30/17 00:00 60 07/30/17 00:00 60 07/29/17 23:00 86 16 80 07/29/17 23:00 86 16 86/39 94 Mechanical Ventilator 60 07/29/17 22:00 89 16 96/42 97 Mechanical Ventilator 60 07/29/17 21:28 93 104/49 07/29/17 21:00 101 16 80 07/29/17 21:00 93 16 104/49 97 Mechanical Ventilator 60 07/29/17 20:00 97.8 95 16 98/42 97 Mechanical Ventilator 60 07/29/17 20:00 60 07/29/17 19:06 95 16 97 Mechanical Ventilator 60 07/29/17 19:00 60 07/29/17 19:00 97 16 99 Mechanical Ventilator 60 07/29/17 19:00 97 16 80 07/29/17 19:00 97.8 100 16 98/42 100 Mechanical Ventilator 60 07/29/17 18:00 101 16 107/49 98 Mechanical Ventilator 80 07/29/17 17:10 104 16 80 07/29/17 17:00 112 16 112/53 98 Mechanical Ventilator 80 07/29/17 16:00 109 07/29/17 16:00 112 16 120/47 100 Mechanical Ventilator 100 07/29/17 15:15 80 07/29/17 15:00 98.1 112 16 114/63 100 Mechanical Ventilator 100 07/29/17 15:00 112 16 100 07/29/17 14:33 90 16 99 07/29/17 14:00 100 07/29/17 13:34 110 37 96 Mechanical Ventilator 60 07/29/17 13:15 Mechanical Ventilator 60 07/29/17 13:15 110 39 60 07/29/17 13:00 100 37 97/49 96 Mechanical Ventilator 60 Intake and Output 07/29/17 07/30/17 19:00 07:00 Intake Total 743.337 ml 1210 ml Output Total 110 ml 142 ml Balance 633.337 ml 1068 ml Free Water 70 ml IV Total 668.337 ml 750 ml Tube Feeding 75 ml 390 ml Output Urine Total 110 ml 140 ml Stool Total 2 ml # Bowel Movements 4 Laboratory Tests Test 07/29/17 14:22 07/30/17 04:40 07/30/17 08:30 07/30/17 11:15 Arterial Blood pH 7.132 (7.350-7.450) 7.298 (7.350-7.450) Arterial Blood Partial Pressure CO2 82.2 mmHg (35.0-45.0) *H 57.7 mmHg (35.0-45.0) *H Arterial Blood Partial Pressure O2 131.9 mmHg (75.0-100.0) H 71.2 mmHg (75.0-100.0) L Arterial Blood HCO3 26.9 mmol/L (22.0-26.0) H 27.6 mmol/L (22.0-26.0) H Arterial Blood Oxygen Saturation 97.4 % (92.0-98.0) 93.5 % (92.0-98.0) Arterial Blood Base Excess -3.7 0.5 Jamie Test Positive Positive White Blood Count 17.0 K/UL (4.8-10.8) H Red Blood Count 3.44 M/UL (4.20-5.40) L Hemoglobin 9.8 G/DL (12.0-16.0) L Hematocrit 32.8 % (37.0-47.0) L Mean Corpuscular Volume 95 FL (80-99) Mean Corpuscular Hemoglobin 28.6 PG (27.0-31.0) Mean Corpuscular Hemoglobin Concent 30.1 G/DL (32.0-36.0) L Red Cell Distribution Width 20.8 % (11.6-14.8) H Platelet Count 126 K/UL (150-450) L Mean Platelet Volume 10.1 FL (6.5-10.1) Neutrophils (%) (Auto) % (45.0-75.0) Lymphocytes (%) (Auto) % (20.0-45.0) Monocytes (%) (Auto) % (1.0-10.0) Eosinophils (%) (Auto) % (0.0-3.0) Basophils (%) (Auto) % (0.0-2.0) Differential Total Cells Counted 100 Neutrophils % (Manual) 86 % (45-75) H Lymphocytes % (Manual) 3 % (20-45) L Monocytes % (Manual) 3 % (1-10) Eosinophils % (Manual) 0 % (0-3) Basophils % (Manual) 0 % (0-2) Band Neutrophils 8 % (0-8) Platelet Estimate Decreased L Platelet Morphology Normal Hypochromasia 1+ Anisocytosis 2+ Sodium Level 148 MMOL/L (136-145) H Potassium Level 4.1 MMOL/L (3.5-5.1) Chloride Level 114 MMOL/L (98-107) H Carbon Dioxide Level 28 MMOL/L (21-32) Anion Gap 6 mmol/L (5-15) Blood Urea Nitrogen 42 mg/dL (7-18) H Creatinine 1.6 MG/DL (0.55-1.30) H Estimat Glomerular Filtration Rate mL/min (>60) Glucose Level 167 MG/DL (74-106) H Calcium Level 6.5 MG/DL (8.5-10.1) L Vancomycin Level Trough 23.6 ug/mL (5.0-12.0) H Height (Feet): 5 Height (Inches): 0.00 Weight (Pounds): 145 General Appearance: no apparent distress Cardiovascular: normal rate Respiratory/Chest: other - mech vent Abdominal Exam: GT site - c/d/i [place] Colon N.P. Jul 30, 2017 12:48
[2017-07-30] MEDS ORDERED: Ipratropium 0.02% Inh Soln 2.5ml UD HHN SCH (13:00)
[2017-07-30] MEDS ORDERED: Miralax 17gm pkt GT PRN (14:15)
[2017-07-30] MEDS ORDERED: Morphine Sulfate 2mg/ml Inj IVP PRN (14:45)
[2017-07-30] MEDS: D5 1/2NS 1,000 ML IV SCH (15:12)
[2017-07-30] MEDS ORDERED: GI Cocktail 120ml ORAL PRN (15:30)
[2017-07-30] MEDS ORDERED: LORazepam Inj 2mg/ml 1ml IV PRN (16:15)
[2017-07-30] MEDS ORDERED: Albuterol/Ipratropium 3ml neb HHN PRN (16:30)
--- NOTE | 2017-07-30 16:55 | Cardiac Electrophysiology PN ---
Assessment/Plan Assessment/Plan 1. [id number] myocardial infarction in the setting of left bundle-branch block and severely anemia. Repeat EKG showed normal sinus rhythm with low- voltage QRS, but no ST elevation and left bundle-branch block has already been resolved. Her echocardiogram also showed ejection fraction of 50% with no evidence of left ventricular hypertrophy with mild diastolic dysfunction. Continue medical therapy with Lopressor. 2. Vent dependent Respiratory failure. S/P Tracheostomy. 3. Acute toxic metabolic encephalopathy on chronic dementia. 4. Acute anemia due to gi bleed,s/p blood transfusion. 5. Lactic acidosis, likely due to sepsis. SOPHIA RN Subjective Subjective Transferred to [facility] after tracheostomy. On Vent. No events overnight. Objective Last 24 Hour Vital Signs Date Time Temp Pulse Resp B/P (MAP) Pulse Ox O2 Delivery O2 Flow Rate FiO2 07/30/17 15:27 80 34 80 07/30/17 13:16 86 32 97 Mechanical Ventilator 60 07/30/17 13:06 85 27 95 Mechanical Ventilator 60 07/30/17 13:06 80 27 80 07/30/17 13:00 88 32 109/70 97 Mechanical Ventilator 60 07/30/17 12:00 98.1 93 29 102/45 96 Mechanical Ventilator 60 07/30/17 12:00 94 07/30/17 12:00 60 07/30/17 11:12 103 24 80 07/30/17 11:00 88 28 91/55 96 Mechanical Ventilator 60 07/30/17 10:00 91 26 91/41 98 Mechanical Ventilator 60 07/30/17 09:00 94 25 96/40 97 Mechanical Ventilator 60 07/30/17 08:54 96 28 80 07/30/17 08:09 97 96/43 07/30/17 08:00 60 07/30/17 08:00 93 07/30/17 08:00 98.0 95 24 96/43 97 Mechanical Ventilator 60 07/30/17 07:42 94 25 98 Mechanical Ventilator 60 07/30/17 07:35 92 25 80 07/30/17 07:32 90 22 97 Mechanical Ventilator 60 07/30/17 07:00 92 21 97/40 100 Mechanical Ventilator 60 07/30/17 06:00 90 21 95/43 100 Mechanical Ventilator 60 07/30/17 05:00 91 21 99/50 100 Mechanical Ventilator 60 07/30/17 04:54 86 19 80 07/30/17 04:00 90 07/30/17 04:00 97.8 90 21 98/43 100 Mechanical Ventilator 60 07/30/17 04:00 60 07/30/17 03:28 92 19 80 07/30/17 03:00 92 20 97/43 100 Mechanical Ventilator 60 07/30/17 02:00 88 17 88/39 97 Mechanical Ventilator 60 07/30/17 01:17 91 18 100 Mechanical Ventilator 60 07/30/17 01:12 90 18 100 Mechanical Ventilator 60 07/30/17 01:10 93 19 80 07/30/17 01:00 85 17 100/39 97 Mechanical Ventilator 60 07/30/17 00:00 86 07/30/17 00:00 97.4 93 16 90/39 97 Mechanical Ventilator 60 07/30/17 00:00 60 07/30/17 00:00 60 07/29/17 23:00 86 16 80 07/29/17 23:00 86 16 86/39 94 Mechanical Ventilator 60 07/29/17 22:00 89 16 96/42 97 Mechanical Ventilator 60 07/29/17 21:28 93 104/49 07/29/17 21:00 101 16 80 07/29/17 21:00 93 16 104/49 97 Mechanical Ventilator 60 07/29/17 20:00 97.8 95 16 98/42 97 Mechanical Ventilator 60 07/29/17 20:00 60 07/29/17 19:06 95 16 97 Mechanical Ventilator 60 07/29/17 19:00 60 07/29/17 19:00 97 16 99 Mechanical Ventilator 60 07/29/17 19:00 97 16 80 07/29/17 19:00 97.8 100 16 98/42 100 Mechanical Ventilator 60 07/29/17 18:00 101 16 107/49 98 Mechanical Ventilator 80 07/29/17 17:10 104 16 80 07/29/17 17:00 112 16 112/53 98 Mechanical Ventilator 80 Intake and Output 07/29/17 07/30/17 19:00 07:00 Intake Total 743.337 ml 1210 ml Output Total 110 ml 142 ml Balance 633.337 ml 1068 ml Free Water 70 ml IV Total 668.337 ml 750 ml Tube Feeding 75 ml 390 ml Output Urine Total 110 ml 140 ml Stool Total 2 ml # Bowel Movements 4 Laboratory Tests Test 07/30/17 04:40 07/30/17 08:30 07/30/17 11:15 White Blood Count 17.0 K/UL (4.8-10.8) H Red Blood Count 3.44 M/UL (4.20-5.40) L Hemoglobin 9.8 G/DL (12.0-16.0) L Hematocrit 32.8 % (37.0-47.0) L Mean Corpuscular Volume 95 FL (80-99) Mean Corpuscular Hemoglobin 28.6 PG (27.0-31.0) Mean Corpuscular Hemoglobin Concent 30.1 G/DL (32.0-36.0) L Red Cell Distribution Width 20.8 % (11.6-14.8) H Platelet Count 126 K/UL (150-450) L Mean Platelet Volume 10.1 FL (6.5-10.1) Neutrophils (%) (Auto) % (45.0-75.0) Lymphocytes (%) (Auto) % (20.0-45.0) Monocytes (%) (Auto) % (1.0-10.0) Eosinophils (%) (Auto) % (0.0-3.0) Basophils (%) (Auto) % (0.0-2.0) Differential Total Cells Counted 100 Neutrophils % (Manual) 86 % (45-75) H Lymphocytes % (Manual) 3 % (20-45) L Monocytes % (Manual) 3 % (1-10) Eosinophils % (Manual) 0 % (0-3) Basophils % (Manual) 0 % (0-2) Band Neutrophils 8 % (0-8) Platelet Estimate Decreased L Platelet Morphology Normal Hypochromasia 1+ Anisocytosis 2+ Sodium Level 148 MMOL/L (136-145) H Potassium Level 4.1 MMOL/L (3.5-5.1) Chloride Level 114 MMOL/L (98-107) H Carbon Dioxide Level 28 MMOL/L (21-32) Anion Gap 6 mmol/L (5-15) Blood Urea Nitrogen 42 mg/dL (7-18) H Creatinine 1.6 MG/DL (0.55-1.30) H Estimat Glomerular Filtration Rate mL/min (>60) Glucose Level 167 MG/DL (74-106) H Calcium Level 6.5 MG/DL (8.5-10.1) L Vancomycin Level Trough 23.6 ug/mL (5.0-12.0) H Arterial Blood pH 7.298 (7.350-7.450) Arterial Blood Partial Pressure CO2 57.7 mmHg (35.0-45.0) *H Arterial Blood Partial Pressure O2 71.2 mmHg (75.0-100.0) L Arterial Blood HCO3 27.6 mmol/L (22.0-26.0) H Arterial Blood Oxygen Saturation 93.5 % (92.0-98.0) Arterial Blood Base Excess 0.5 Jamie Test Positive Objective HEAD AND NECK: Shows no JVD. S/P Tracheostomy LUNGS: Decreased breath sounds. Coarse rhonchi. CARDIOVASCULAR: Shows regular S1 and S2 with no gallop. ABDOMEN: Soft. PEG intact EXTREMITIES: No pitting edema. CHELSIE HOUSTON Jul 30, 2017 16:55
--- NOTE | 2017-07-30 17:35 | Infectious Diseases Prog Note ---
Assessment/Plan Assessment/Plan ASSESSMENT AND PLAN: 1. e.coli uti, mrsa uti, pna, sc-negative, ARDS, klebsiella/e.coli/strep g-tube infection, sepsis, legionella negative, respiratory failure/vent, re-intubated leukocytosis worse, ? c.diff., ? fungemia, thu albicans/fungal uti, trach, vent, FIO2 - 80 %, [facility] - CT scan noted and c/w pna/ARDS, no abscess - check surveillance cultures sc, labs and chest x-ray - zyvox and meropenem, flagyl and diflucan, discontinue vancomycin since mabel - SDU and supportive care - cultures noted 2. The patient has severe anemia. 3. Respiratory failure, on ventilator. 4. Dysphagia, on gastrostomy tube. 5. Skin care protocol. Wounds were reviewed. They do not look acutely infected. 6. Hypertension. 7. Cardiomyopathy. 8. CVA. 9. Coronary artery disease. 10. Percutaneous coronary intervention of the left anterior descending. 11. Atrial fibrillation. 12. Alzheimer's. 13. Dementia. 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 15. Blood pressure treatment for hypertension per primary. 16. Allergies are negative. 17. Family number is noncontributory. 18. Social history is negative. 19. MAR was noted. 20. Case was discussed with RN. 21. Continue treatment per primary consultants. 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, vre colonization and isolation Subjective Constitutional: Reports: other - s/p trach, fio2 - 80 %, Denies: fever HEENT: Reports: congestion Respiratory: Reports: shortness of breath Cardiovascular: Reports: other - no pressors Gastrointestinal/Abdominal: Denies: nausea, vomiting, diarrhea Genitourinary: Reports: other - + blake Neurologic: Denies: headache Psychiatric: Denies: depression Skin: Denies: rash Hematologic: Denies: bleeding Musculoskeletal: Denies: pain Allergies: Coded Allergies: No Known Allergies (Unverified , 05/25/13) Objective Vital Signs Last 24 Hour Vital Signs Date Time Temp Pulse Resp B/P (MAP) Pulse Ox O2 Delivery O2 Flow Rate FiO2 07/30/17 17:14 82 36 80 07/30/17 15:27 80 34 80 07/30/17 13:16 86 32 97 Mechanical Ventilator 60 07/30/17 13:06 85 27 95 Mechanical Ventilator 60 07/30/17 13:06 80 27 80 07/30/17 13:00 88 32 109/70 97 Mechanical Ventilator 60 07/30/17 12:00 98.1 93 29 102/45 96 Mechanical Ventilator 60 07/30/17 12:00 94 07/30/17 12:00 60 07/30/17 11:12 103 24 80 07/30/17 11:00 88 28 91/55 96 Mechanical Ventilator 60 07/30/17 10:00 91 26 91/41 98 Mechanical Ventilator 60 07/30/17 09:00 94 25 96/40 97 Mechanical Ventilator 60 07/30/17 08:54 96 28 80 07/30/17 08:09 97 96/43 07/30/17 08:00 60 07/30/17 08:00 93 07/30/17 08:00 98.0 95 24 96/43 97 Mechanical Ventilator 60 07/30/17 07:42 94 25 98 Mechanical Ventilator 60 07/30/17 07:35 92 25 80 07/30/17 07:32 90 22 97 Mechanical Ventilator 60 07/30/17 07:00 92 21 97/40 100 Mechanical Ventilator 60 07/30/17 06:00 90 21 95/43 100 Mechanical Ventilator 60 07/30/17 05:00 91 21 99/50 100 Mechanical Ventilator 60 07/30/17 04:54 86 19 80 07/30/17 04:00 90 07/30/17 04:00 97.8 90 21 98/43 100 Mechanical Ventilator 60 07/30/17 04:00 60 07/30/17 03:28 92 19 80 07/30/17 03:00 92 20 97/43 100 Mechanical Ventilator 60 07/30/17 02:00 88 17 88/39 97 Mechanical Ventilator 60 07/30/17 01:17 91 18 100 Mechanical Ventilator 60 07/30/17 01:12 90 18 100 Mechanical Ventilator 60 07/30/17 01:10 93 19 80 07/30/17 01:00 85 17 100/39 97 Mechanical Ventilator 60 07/30/17 00:00 86 07/30/17 00:00 97.4 93 16 90/39 97 Mechanical Ventilator 60 07/30/17 00:00 60 07/30/17 00:00 60 07/29/17 23:00 86 16 80 07/29/17 23:00 86 16 86/39 94 Mechanical Ventilator 60 07/29/17 22:00 89 16 96/42 97 Mechanical Ventilator 60 07/29/17 21:28 93 104/49 07/29/17 21:00 101 16 80 07/29/17 21:00 93 16 104/49 97 Mechanical Ventilator 60 07/29/17 20:00 97.8 95 16 98/42 97 Mechanical Ventilator 60 07/29/17 20:00 60 07/29/17 19:06 95 16 97 Mechanical Ventilator 60 07/29/17 19:00 60 07/29/17 19:00 97 16 99 Mechanical Ventilator 60 07/29/17 19:00 97 16 80 07/29/17 19:00 97.8 100 16 98/42 100 Mechanical Ventilator 60 07/29/17 18:00 101 16 107/49 98 Mechanical Ventilator 80 Height (Feet): 5 Height (Inches): 0.00 Weight (Pounds): 145 General Appearance: other - + trach, vent, no pressors, fio2 - 80% HEENT: normocephalic, atraumatic, anicteric, no JVD, status post trach Respiratory/Chest: crackles/rales, rhonchi - bilaterally Cardiovascular: normal rate, regular rhythm, no gallop/murmur Abdomen: normal bowel sounds, soft, non tender, no organomegaly, non distended Genitourinary: other - + blake - urine slt cloudy Extremities: no cyanosis Skin: no rash Neurologic/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 ET tube tip 1.9 cm above the dino. Persistent extensive bilateral airspace opacities and bilateral pleural effusions with slight worsening of aeration of the right lower lung compared to the prior exam. No pneumothorax. CT scan: IMPRESSION: Extensive airspace disease within the lungs bilaterally etiology unknown. ARDS and diffuse extensive pneumonia are among the differential considerations. Mild to moderate bilateral pleural effusions Trace ascites Anasarca Atherosclerotic vascular disease Gastrostomy, Blake catheter, endotracheal tube and central venous catheter is in good position. Left total hip arthroplasty Chest x-ray 07/28 - marginal improvement in extensive airspace disease Chest x-ray - 07/30 - Impression: Bilateral extensive diffuse interstitial and alveolar infiltrates versus edema, unchanged over one day Interim exchange of endotracheal tube for tracheostomy. No radiographically evident complication CT scan: IMPRESSION: Extensive airspace disease within the lungs bilaterally etiology unknown. ARDS and diffuse extensive pneumonia are among the differential considerations. Mild to moderate bilateral pleural effusions Trace ascites Anasarca Atherosclerotic vascular disease Gastrostomy, Blake catheter, endotracheal tube and central venous catheter is in good position. Microbiology Date/Time Source Procedure Growth Status 07/24/17 10:50 Blood Blood Culture - Final NO GROWTH AFTER 5 DAYS Complete 07/17/17 01:20 Wound Gram Stain - Final Complete 07/17/17 01:20 Wound Culture - Final Klebsiella Pneumoniae Escherichia Coli Enterococcus Faecalis Complete 07/22/17 01:10 Sputum Induced Gram Stain - Final Complete 07/22/17 01:10 Sputum Culture - Final Usual Respiratory Noelle Complete 07/17/17 08:00 Stool Clostridium difficile Toxin Assay - Final Complete 07/24/17 10:00 Urine,Clean Catch Urine Culture - Final Thu Albicans Complete 07/16/17 19:30 Rectum VRE Culture - Final Enterococcus Faecalis - Vre Complete Laboratory Tests Test 07/30/17 04:40 07/30/17 08:30 07/30/17 11:15 White Blood Count 17.0 K/UL (4.8-10.8) H Red Blood Count 3.44 M/UL (4.20-5.40) L Hemoglobin 9.8 G/DL (12.0-16.0) L Hematocrit 32.8 % (37.0-47.0) L Mean Corpuscular Volume 95 FL (80-99) Mean Corpuscular Hemoglobin 28.6 PG (27.0-31.0) Mean Corpuscular Hemoglobin Concent 30.1 G/DL (32.0-36.0) L Red Cell Distribution Width 20.8 % (11.6-14.8) H Platelet Count 126 K/UL (150-450) L Mean Platelet Volume 10.1 FL (6.5-10.1) Neutrophils (%) (Auto) % (45.0-75.0) Lymphocytes (%) (Auto) % (20.0-45.0) Monocytes (%) (Auto) % (1.0-10.0) Eosinophils (%) (Auto) % (0.0-3.0) Basophils (%) (Auto) % (0.0-2.0) Differential Total Cells Counted 100 Neutrophils % (Manual) 86 % (45-75) H Lymphocytes % (Manual) 3 % (20-45) L Monocytes % (Manual) 3 % (1-10) Eosinophils % (Manual) 0 % (0-3) Basophils % (Manual) 0 % (0-2) Band Neutrophils 8 % (0-8) Platelet Estimate Decreased L Platelet Morphology Normal Hypochromasia 1+ Anisocytosis 2+ Sodium Level 148 MMOL/L (136-145) H Potassium Level 4.1 MMOL/L (3.5-5.1) Chloride Level 114 MMOL/L (98-107) H Carbon Dioxide Level 28 MMOL/L (21-32) Anion Gap 6 mmol/L (5-15) Blood Urea Nitrogen 42 mg/dL (7-18) H Creatinine 1.6 MG/DL (0.55-1.30) H Estimat Glomerular Filtration Rate mL/min (>60) Glucose Level 167 MG/DL (74-106) H Calcium Level 6.5 MG/DL (8.5-10.1) L Vancomycin Level Trough 23.6 ug/mL (5.0-12.0) H Arterial Blood pH 7.298 (7.350-7.450) Arterial Blood Partial Pressure CO2 57.7 mmHg (35.0-45.0) *H Arterial Blood Partial Pressure O2 71.2 mmHg (75.0-100.0) L Arterial Blood HCO3 27.6 mmol/L (22.0-26.0) H Arterial Blood Oxygen Saturation 93.5 % (92.0-98.0) Arterial Blood Base Excess 0.5 Jamie Test Positive Current Medications Medications (Trade) Dose Ordered Sig/Analia Route PRN Reason Start Time Stop Time Status Last Admin Dose Admin Acetaminophen (Tylenol) 650 mg Q4H PRN ORAL fever 07/30/17 14:15 08/15/17 22:14 Albuterol/ Ipratropium (Albuterol/ Ipratropium) 3 ml Q4H PRN HHN Shortness of Breath 07/30/17 16:30 08/02/17 12:29 Atorvastatin Calcium (Lipitor) 10 mg BEDTIME GT 07/30/17 21:00 08/16/17 20:59 Chlorhexidine Gluconate (Joana-Hex 2%) 1 applic DAILY@1999 TOPIC 07/30/17 20:00 08/22/17 19:59 Dextrose/Sodium Chloride 1,000 ml @ 50 mls/hr Q20H IV 07/30/17 14:15 08/28/17 18:59 07/30/17 15:12 Fluconazole/ Sodium Chloride 100 ml @ 100 mls/hr Q24H IV 07/30/17 18:00 08/06/17 17:59 Furosemide (Lasix) 40 mg DAILY IV 07/31/17 09:00 08/22/17 20:59 Ipratropium [place] (Atrovent) 500 mcg Q6HRT HHN 07/30/17 19:00 08/04/17 01:02 Lorazepam (Ativan 2mg/ml 1ml) 2 mg Q4H PRN IV For Anxiety 07/30/17 16:15 08/02/17 16:14 Meropenem 1 gm/ Sodium Chloride 110 ml @ 220 mls/hr Q12HR@0800,1999 IVPB 07/30/17 20:00 08/02/17 19:59 Metoprolol Tartrate (Lopressor) 12.5 mg Q12HR ORAL 07/30/17 21:00 08/16/17 20:59 Metronidazole 100 ml @ 100 mls/hr Q8HR IVPB 07/30/17 22:00 08/06/17 21:59 Morphine Sulfate (Morphine Sulfate) 2 mg Q4H PRN IVP PAIN 4-10 07/30/17 14:45 08/04/17 01:02 Ondansetron HCl (Zofran) 4 mg Q6H PRN IVP Nausea & Vomiting 07/30/17 16:15 08/15/17 22:14 Pantoprazole (Protonix) 40 mg EVERY 12 HOURS IVP 07/30/17 21:00 08/25/17 20:59 Polyethylene Glycol (Miralax) 17 gm DAILYPRN PRN GT Constipation 07/30/17 14:15 08/15/17 22:14 Spironolactone (Aldactone) 25 mg DAILY NG 07/31/17 09:00 08/24/17 15:29 Vancomycin HCl (Vanco rx to dose) 1 ea DAILY PRN MISC per protocol 07/31/17 09:00 08/16/17 00:44 MIHAELA TUBBS Jul 30, 2017 17:35
--- NOTE | 2017-07-30 19:15 | Progress Note ---
DATE: 07/30/2017 CARDIOLOGY PROGRESS NOTE SUBJECTIVE: The patient is status post tracheostomy and PEG placement. She remains on ventilator support. OBJECTIVE: VITAL SIGNS: Afebrile, blood pressure 102/45, pulse 93, and respiratory rate 29. LUNGS: Clear. CARDIAC: Regular. Normal S1 and S2. ABDOMEN: Soft. No edema. LABORATORY AND DIAGNOSTIC DATA: White count 17 and hemoglobin 9.8. Sodium 148, potassium 4.1, bicarbonate 28, BUN 42 and creatinine 1.6. Mg is 1.4. Chest x-ray reveals diffuse interstitial and alveolar infiltrates. IMPRESSION: 1. Respiratory failure status post tracheostomy. 2. Dehydration. 3. Hyponatremia. 4. Acute on chronic renal failure with prerenal azotemia. 5. Acute myocardial infarction. 6. Ischemic cardiomyopathy. 7. Urinary tract infection. 8. Severe anemia. 9. Paroxysmal atrial fibrillation. 10. Hypomagnesemia. RECOMMENDATIONS: 1. Recommend ventilator support. 2. Free water replacement. 3. Antimicrobials. 4. Beta-blockade. 5. Anti-platelet therapy. 6. Discontinue diuresis until free water deficit is corrected. 7. IV magnesium Rx Carlos Cruz M.D. DR: CAROLYN JOB#: [id number] CC: TALYA
[2017-07-30] MEDS: Dyna-Hex 2% Top Sol 2oz TOPIC SCH (20:19)
--- NOTE | 2017-07-30 20:53 | Neurology Progress Note ---
Interim History Interim History Interim History Ms. Loving is non-verbal. She opens her eyes on deep painful stimuli. She does not make eye contact. She winces on deep pain but does not move. She is still significantly encephalopathic. She is artificially ventilated via her tracheostomy. Review of Systems Neuro Review of Systems Unable to obtain. Objective Physical Exam Last Vital Signs Date Time Temp Pulse Resp B/P (MAP) Pulse Ox O2 Delivery O2 Flow Rate FiO2 07/30/17 20:23 103 105/51 07/30/17 20:00 80 07/30/17 20:00 97.9 24 97 Mechanical Ventilator 07/30/17 16:00 1.0 Laboratory Tests Test 07/30/17 04:40 07/30/17 08:30 07/30/17 11:15 White Blood Count 17.0 K/UL (4.8-10.8) H Red Blood Count 3.44 M/UL (4.20-5.40) L Hemoglobin 9.8 G/DL (12.0-16.0) L Hematocrit 32.8 % (37.0-47.0) L Mean Corpuscular Volume 95 FL (80-99) Mean Corpuscular Hemoglobin 28.6 PG (27.0-31.0) Mean Corpuscular Hemoglobin Concent 30.1 G/DL (32.0-36.0) L Red Cell Distribution Width 20.8 % (11.6-14.8) H Platelet Count 126 K/UL (150-450) L Mean Platelet Volume 10.1 FL (6.5-10.1) Neutrophils (%) (Auto) % (45.0-75.0) Lymphocytes (%) (Auto) % (20.0-45.0) Monocytes (%) (Auto) % (1.0-10.0) Eosinophils (%) (Auto) % (0.0-3.0) Basophils (%) (Auto) % (0.0-2.0) Differential Total Cells Counted 100 Neutrophils % (Manual) 86 % (45-75) H Lymphocytes % (Manual) 3 % (20-45) L Monocytes % (Manual) 3 % (1-10) Eosinophils % (Manual) 0 % (0-3) Basophils % (Manual) 0 % (0-2) Band Neutrophils 8 % (0-8) Platelet Estimate Decreased L Platelet Morphology Normal Hypochromasia 1+ Anisocytosis 2+ Sodium Level 148 MMOL/L (136-145) H Potassium Level 4.1 MMOL/L (3.5-5.1) Chloride Level 114 MMOL/L (98-107) H Carbon Dioxide Level 28 MMOL/L (21-32) Anion Gap 6 mmol/L (5-15) Blood Urea Nitrogen 42 mg/dL (7-18) H Creatinine 1.6 MG/DL (0.55-1.30) H Estimat Glomerular Filtration Rate mL/min (>60) Glucose Level 167 MG/DL (74-106) H Calcium Level 6.5 MG/DL (8.5-10.1) L Vancomycin Level Trough 23.6 ug/mL (5.0-12.0) H Arterial Blood pH 7.298 (7.350-7.450) Arterial Blood Partial Pressure CO2 57.7 mmHg (35.0-45.0) *H Arterial Blood Partial Pressure O2 71.2 mmHg (75.0-100.0) L Arterial Blood HCO3 27.6 mmol/L (22.0-26.0) H Arterial Blood Oxygen Saturation 93.5 % (92.0-98.0) Arterial Blood Base Excess 0.5 Jamie Test Positive Neurologic Exam Objective PHYSICAL EXAMINATION: GENERAL: She is a well-developed, but lean and ill-looking lady, lying in bed connected to a ventilator via a tracheostomy. HEAD: Normocephalic with a right temporoparietal skull defect. EENT: Examination benign. NECK: No neck rigidity was observed. NEUROLOGICAL EXAMINATION: MENTAL STATUS EXAMINATION: She opened her eyes on deep painful stimuli. She was unable to communicate or follow simple commands. SPEECH: She was intubated. LANGUAGE: Could not be tested adequately because of her altered mental state. CRANIAL NERVE EXAMINATION: II: She did not blink to threat. III, IV & : The external ocular movements were present on OCM and the pupils 3 mm in diameter, equal, round, regular, and reactive to light. V & VII: The corneal reflexes were subdued, but brisker on the right than on the left. She also had mild flattening of the left nasolabial fold. VIII: She did not respond to sounds and had no nystagmus. IX & X: The gag reflex was subdued. XI: The sternocleidomastoids and trapezii did function. XII: Could not be tested. MOTOR SYSTEM: The tone was increased in all four extremities with a mild degree of spasticity, slightly more marked on the left side compared to the right. Examination of muscle mass revealed generalized muscle wasting with bilateral ankle cord contractures. She did not move any of her extremities on deep pain. SENSORY EXAMINATION: She responded minimally to deep pain with wincing in all 4 extremities. REFLEXES: Trace+ on the right and 1+ on the left at the biceps, triceps, brachioradialis, and knees and 0 at both ankles. The plantar responses were extensor bilaterally. COORDINATION, STANCE & GAIT: Could not be tested. Impression/Recommendations Diagnostic Impression 1. Ms. Beatriz Loving is an 87-year-old, lady, of unknown handedness, who does have a past history of hypertension, coronary artery disease, paroxysmal atrial fibrillation, Alzheimer disease, cerebrovascular disease, and right brain surgery for reasons unknown to us, who lives in a fdc. She was hospitalized on 07/16/2017 for shortness of breath associated with hypoxia, elevated troponin, a urinary tract infection, and possibly a pneumonic process. She was stabilized and on 07/21/2017 was extubated. Following that, she was brighter, but later on 07/22/17 she was noted to be more somnolent and slurring her speech. 2. She only responds to deep pain with eye opening and wincing. 3. On neurological examination, at this time, she does have a right temporoparietal skull defect, she only responds to deep pain with eye opening and wincing, has a spastic quadriplegia, and is globally areflexic. 4. The CT scan of the brain without contrast reveals atrophy, deep white matter changes, and a right temporoparietal craniotomy defect, but no acute pathology. 5. Laboratory data on admission revealed that she had a significant leukocytosis with a WBC count of 15.7. She was anemic with a hemoglobin of 9.1. She had a left-sided shift on her white blood cell count. Her arterial blood gas revealed a pCO2 of 51 and a pO2 of 116. A chemistry panel revealed a sodium down to 133, potassium elevated to 5.3, BUN elevated to 24, her glucose elevated to 278, AST elevated to 138, ProBNP was greater than 35,000, her albumin was down to 2.0, and her troponin was elevated to 10.3. Her urinalysis revealed 3+ leukocyte esterase, too numerous to count red blood cells and white blood cells, and many urinary bacteria. 6. The EEG revealed an encephalopathy of moderate degree. 7. Her leukocytosis is better, she is still acidotic and hypercarbic. 8. 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 9. She is less encephalopathic today. Her neurologic function is still poor. Recommendations 1. Continue present management. 2. Continue to correct the patient's toxic metabolic imbalances. 3. Correct the patient's anemia to a hemoglobin of greater than 10 G. 4. Observe closely. Ga Fuller M.D., M.S.P.GA REDDY Jul 30, 2017 20:53
[2017-07-30] MEDS ORDERED: Metoprolol Tartrate 12.5mg TAB ORAL SCH (21:00)
[2017-07-31] VITALS (7 sets, daily range): BP systolic 95–123; BP diastolic 43–77
--- NOTE | 2017-07-31 00:33 | General Progress Note ---
Assessment/Plan Problem List: (1) Acute respiratory failure with hypoxia and hypercapnia ICD Codes: J96.01 - Acute respiratory failure with hypoxia; J96.02 - Acute respiratory failure with hypercapnia SNOMED: 66283571, 41411164, 739953841 (2) Severe sepsis ICD Codes: A41.9 - Sepsis, unspecified organism; R65.20 - Severe sepsis without septic shock SNOMED: 78391094 (3) HCAP vs Aspiration pneumonia (4) UTI (urinary tract infection) ICD Codes: N39.0 - Urinary tract infection, site not specified SNOMED: 81881021 (5) Lactic acid acidosis ICD Codes: E87.2 - Acidosis SNOMED: 75752471 (6) NSTEMI (non-ST elevated myocardial infarction) ICD Codes: I21.4 - Non-ST elevation (NSTEMI) myocardial infarction SNOMED: 372030514 (7) Acute on chronic anemia (8) Hyponatremia ICD Codes: E87.1 - Hypo-osmolality and hyponatremia SNOMED: 95720120 (9) paroxsymal atrial fibrillation (10) CAD s/p PCI (11) Ischemic cardiomyopathy ICD Codes: I25.5 - Ischemic cardiomyopathy SNOMED: 220722964 (12) CVA (cerebral vascular accident) ICD Codes: I63.9 - Cerebral infarction, unspecified SNOMED: 282910136 (13) Alzheimer's dementia ICD Codes: G30.9 - Alzheimer's disease, unspecified SNOMED: 17968246 (14) Hypernatremia ICD Codes: E87.0 - Hyperosmolality and hypernatremia SNOMED: 48687574 (15) MABEL (acute kidney injury) ICD Codes: N17.9 - Acute kidney failure, unspecified SNOMED: 14226150 Status: stable Assessment/Plan Transfer to tele Pulm, cardiology, ID, GI consulted, appreciate rec's s/p extubation on 07/21/17 re-intubated on 07/26/17 s/p trach on 07/29/17 Hold lasix given MABEL and hypernatremia F/u FFWU sent 07/24 given rising WBC Cont Linezolid, Meropenem per ID; started flagyl and diflucan. Vanco stopped given MABEL F/u cultures Neurology consulted given new onset slurred speech. CT head negative. F/u EEG Trend CBC, BMP, lactate Trend trop/EKG --> trop downtrending F/u TTE --> 45% EF with mild LVDD Cont heparin gtt per cardiology (Eliquis on hold) s/p 1 unit pRBC transfusion 07/17. Gastric lavage on 07/17 showed e/o bleeding but currently no active signs of bleeding Patient will eventually need EGD/colonoscopy to assess for GIB given acute drop in hemoglobin and positive FOBT. However, patient is unstable at the moment given NSTEMI/elevated trops. Awaiting cardiac clearance Continue PPI gtt Continue IV venofer Cont G-tube feedings per GI Supportive care DVT Prophylaxis: SCD, heparin gtt Code Status: Full per discussion w/ pt's DPOA/daughter Hospital Classification Declaration: Based on this initial evaluation, and depending on the patient's clinical course, I anticipate that this patient will require hospitalization for 2-3 days for acute respiratory faiure, severe sepsis and close respiratory/hemodynamic monitoring. Disposition: Once the patient is stable to leave the hospital, I anticipate the patient will likely be discharged to the following environment: back to SNF Plan outlined above discussed with patient/family, cardiology, ID, GI, pulm regarding mgmt and dispo Time of note may not reflect time of encounter. Subjective Date patient seen: Jul 30, 2017 Time patient seen: 15:30 ROS Limited/Unobtainable: Yes Allergies: Coded Allergies: No Known Allergies (Unverified , 05/25/13) Subjective No acute o/n events Cr uptrending to 1.6 and Na uptrending s/p trach o n109/29/16 Cont on vent Pt lethargic, arousable Objective Last 24 Hour Vital Signs Date Time Temp Pulse Resp B/P (MAP) Pulse Ox O2 Delivery O2 Flow Rate FiO2 07/30/17 23:10 109 42 80 07/30/17 21:20 76 35 80 07/30/17 20:23 103 105/51 07/30/17 20:00 80 07/30/17 20:00 97.9 103 24 105/51 97 Mechanical Ventilator 80 07/30/17 20:00 117 07/30/17 19:09 91 33 97 Mechanical Ventilator 60 07/30/17 19:01 87 30 95 Mechanical Ventilator 80 07/30/17 19:00 87 41 80 07/30/17 17:14 82 36 80 07/30/17 16:00 80 07/30/17 16:00 85 07/30/17 16:00 98.5 92 19 119/58 98 Mechanical Ventilator 1.0 80 07/30/17 15:27 80 34 80 07/30/17 13:16 86 32 97 Mechanical Ventilator 60 07/30/17 13:06 85 27 95 Mechanical Ventilator 60 07/30/17 13:06 80 27 80 07/30/17 13:00 88 32 109/70 97 Mechanical Ventilator 60 07/30/17 12:00 98.1 93 29 102/45 96 Mechanical Ventilator 60 07/30/17 12:00 94 07/30/17 12:00 60 07/30/17 11:12 103 24 80 07/30/17 11:00 88 28 91/55 96 Mechanical Ventilator 60 07/30/17 10:00 91 26 91/41 98 Mechanical Ventilator 60 07/30/17 09:00 94 25 96/40 97 Mechanical Ventilator 60 07/30/17 08:54 96 28 80 07/30/17 08:09 97 96/43 07/30/17 08:00 60 07/30/17 08:00 93 07/30/17 08:00 98.0 95 24 96/43 97 Mechanical Ventilator 60 07/30/17 07:42 94 25 98 Mechanical Ventilator 60 07/30/17 07:35 92 25 80 07/30/17 07:32 90 22 97 Mechanical Ventilator 60 07/30/17 07:00 92 21 97/40 100 Mechanical Ventilator 60 07/30/17 06:00 90 21 95/43 100 Mechanical Ventilator 60 07/30/17 05:00 91 21 99/50 100 Mechanical Ventilator 60 07/30/17 04:54 86 19 80 07/30/17 04:00 90 07/30/17 04:00 97.8 90 21 98/43 100 Mechanical Ventilator 60 07/30/17 04:00 60 07/30/17 03:28 92 19 80 07/30/17 03:00 92 20 97/43 100 Mechanical Ventilator 60 07/30/17 02:00 88 17 88/39 97 Mechanical Ventilator 60 07/30/17 01:17 91 18 100 Mechanical Ventilator 60 07/30/17 01:12 90 18 100 Mechanical Ventilator 60 07/30/17 01:10 93 19 80 07/30/17 01:00 85 17 100/39 97 Mechanical Ventilator 60 Intake and Output 07/30/17 07/31/17 19:00 07:00 Intake Total 1200 ml 1075 ml Output Total 306 ml Balance 894 ml 1075 ml Free Water 120 ml IV Total 660 ml 870 ml Tube Feeding 420 ml 175 ml Other 30 ml Output Urine Total 305 ml Stool Total 1 ml # Bowel Movements 3 Laboratory Tests 07/30/17 04:40: White Blood Count 17.0H, Red Blood Count 3.44L, Hemoglobin 9.8L, Hematocrit 32.8L, Mean Corpuscular Volume 95, Mean Corpuscular Hemoglobin 28.6, Mean Corpuscular Hemoglobin Concent 30.1L, Red Cell Distribution Width 20.8H, Platelet Count 126L, Mean Platelet Volume 10.1, Neutrophils (%) (Auto) , Lymphocytes (%) (Auto) , Monocytes (%) (Auto) , Eosinophils (%) (Auto) , Basophils (%) (Auto) , Differential Total Cells Counted 100, Neutrophils % ( Manual) 86H, Lymphocytes % (Manual) 3L, Monocytes % (Manual) 3, Eosinophils % ( Manual) 0, Basophils % (Manual) 0, Band Neutrophils 8, Platelet Estimate DecreasedL, Platelet Morphology Normal, Hypochromasia 1+, Anisocytosis 2+, Sodium Level 148H, Potassium Level 4.1, Chloride Level 114H, Carbon Dioxide Level 28, Anion Gap 6, Blood Urea Nitrogen 42H, Creatinine 1.6H, Estimat Glomerular Filtration Rate , Glucose Level 167H, Calcium Level 6.5L 07/30/17 08:30: Vancomycin Level Trough 23.6H 07/30/17 11:15: Arterial Blood pH 7.298L, Arterial Blood Partial Pressure CO2 57.7*H, Arterial Blood Partial Pressure O2 71.2L, Arterial Blood HCO3 27.6H, Arterial Blood Oxygen Saturation 93.5, Arterial Blood Base Excess 0.5, Jamie Test Positive Height (Feet): 5 Height (Inches): 0.00 Weight (Pounds): 145 Objective General: awake, alert, lethargic, on BiPAP Head: normocephalic, without obvious abnormality, atraumatic Eyes: conjunctivae/corneas clear. PERRL, EOM's intact Throat: lips, mucosa, and tongue normal. MMM Neck: supple, symmetrical, trachea midline, and no JVD Lungs: clear to auscultation bilaterally Heart: regular rate and rhythm, S1, S2 normal, no murmur, click, rub or gallop Abdomen: soft, non-tender, non-distended, bowel sounds normal; +PEG c/d/i Extremities: extremities normal, atraumatic, no cyanosis or edema Pulses: 2+ and symmetric Skin: skin color, texture, turgor normal; no rashes or lesions Neurologic: Kilo Manrique M.D. Jul 31, 2017 00:33
[2017-07-31] MEDS ORDERED: Metoprolol 5mg/5ml Inj IVPB ONE (01:45)
[2017-07-31 04:28] LABS: HEMATOCRIT 29.2 % (37.0-47.0); HEMOGLOBIN 9.1 G/DL (12.0-16.0); MEAN CORPUSCULAR VOLUME 94 FL (80-99); PLATELET COUNT 83 K/UL (150-450); RED CELL DISTRIBUTION WIDTH 20.5 % (11.6-14.8); WHITE BLOOD COUNT 15.9 K/UL (4.8-10.8)
[2017-07-31 04:41] LABS: ANION GAP 4 mmol/L (5-15); BLOOD UREA NITROGEN 49 mg/dL (7-18); CALCIUM 6.5 MG/DL (8.5-10.1); CARBON DIOXIDE 29 MMOL/L (21-32); CHLORIDE 113 MMOL/L (98-107); CREATININE 1.7 MG/DL (0.55-1.30); POTASSIUM 3.6 MMOL/L (3.5-5.1); SODIUM 146 MMOL/L (136-145)
[2017-07-31] MEDS: Ipratropium 0.02% Inh Soln 2.5ml UD HHN SCH ×3 (07:35→19:58)
[2017-07-31] MEDS: Meropenem 1 GM in NS 110 ML IVPB SCH ×2 (08:10→20:52)
[2017-07-31] MEDS: Pantoprazole Inj IVP SCH ×2 (09:08→20:54)
[2017-07-31] MEDS: Metoprolol 25mg tab ORAL SCH ×2 (09:09→20:53)
[2017-07-31] MEDS: Spironolactone 25mg tab NG SCH (09:09)
--- NOTE | 2017-07-31 09:09 | General Progress Note ---
Progress Note Progress Note Surgery: trach site clean. trach functional. dressings changed. good volumes on vent. downgraded from ICU cont with trach care and management. can downsize in 2 weeks. can remove sutures in 1 week. Teo Del Valle Jul 31, 2017 09:09
--- NOTE | 2017-07-31 09:09 | 48 Hour Post Anesthesia Eval ---
Post Anesthesia Evaluation Procedure: Tracheostomy Date of Evaluation: Jul 31, 2017 Time of Evaluation: 06:30 Blood Pressure Systolic: 95 0: 55 Pulse Rate: 96 Respiratory Rate: 25 Temperature (Fahrenheit): 98.4 O2 Sat by Pulse Oximetry: 100 Airway: other - trach in place, on vent Nausea: No Vomiting: No Pain Intensity: 0 Hydration Status: adequate Cardiopulmonary Status: at baseline Mental Status/LOC: patient returned to baseline Post-Anesthesia Complications: 0 Follow-up care needed: N/A - further care as per primary team MARLIN BERNAL M.D. Jul 31, 2017 09:09
[2017-07-31] MEDS: D5 1/2NS 1,000 ML IV SCH (10:15)
--- NOTE | 2017-07-31 11:36 | Pulmonolgy Critical Care Note ---
Critical Care - Asmt/Plan Assessment/Plan: ASSESSMENT acute hypoxemic respiratory failure requiring intubation s/p extubation s/p reintubation 07/26 s/p trach 07/30 persistent hypercapnia sepsis with shock PNA UTI with Staph aureus NSTEMI demand ischemia of myocardium severe diffuse gastropathy upper GI bleeding LBBB NSVT ischemic CM acute on chronic diastolic HF CAD s/p PCI acute toxic metabolic encephalopathy on chronic dementia ( likely due to to sepsis, NSTEMI) hxx of CVA acute anemia requiring blood transfusion lactic acidosis transaminitis -resolved severe protein calorie malnutrition dehydration hypernatremia Alzheimer [id number] functional quadriplegia dysphagia, G tube PLAN OF CARE JAMEEL vent support increase AC to 18 ABG in am pulmonary toilet ATC and prn, add CPT with HHN x 48 hrs s/p trach trach care surgery follows abx, ID follows urine cx + E coli MRSA, sputum cx negative, blood cx negative, stool C dif negative, wound cx + Klebsiella,E coli Enterococci off heparin gtt and ASA due to GI bleeding cardio follows serial troponin c/w NSTEMI, troponin trended down not stable for cardiac cath ECHO with EF 45% and RVSP of 28, mild continue BB as BP allows , statin and cautious diuresis monitor cardiorenal parameters, volumes dc IVF increase H2O flushes via G tube s/p blood transfusion HH at baseline monitor HH, with goal to keep Hgb above 8 , stool Ob + anemia w/up c/w anemia of chronic disease and has iron deficiency s/p Venofer x5 doses s/p PPI gtt GI follows gastric lavage by GI 07/17 with evidence of GI bleeding per GI will need EGD when stable with prior cardiac clearance G tube feeding, monitor tolerance , strict aspiration precautions PPI IV bid trend LFT likely due to sepsis and shock - down to normal pain management bowel regimen venous Duplex BLE -negative, SCD CT head negative for acute IC pathology neuro follows, EEG abnormal with evidence of moderate encephalopathy, per neuro toxic metabolic encephalopathy superimposed on on old structural brain disease and dementia case discussed and evaluated by supervising physician Critical Care - Objective Last 24 Hour Vital Signs Date Time Temp Pulse Resp B/P (MAP) Pulse Ox O2 Delivery O2 Flow Rate FiO2 07/31/17 11:02 76 38 100 07/31/17 09:09 92 122/43 07/31/17 09:09 92 25 100 07/31/17 08:58 92 35 100 07/31/17 08:01 98.4 92 25 122/43 97 Mechanical Ventilator 100 07/31/17 07:43 92 34 Mechanical Ventilator 100 07/31/17 07:36 87 33 98 Mechanical Ventilator 100 07/31/17 07:32 95 33 100 07/31/17 07:08 90 16 100 07/31/17 05:05 98 40 100 07/31/17 04:00 96 07/31/17 04:00 98.4 93 25 95/55 100 Mechanical Ventilator 100 07/31/17 04:00 100 07/31/17 03:19 98 40 100 07/31/17 01:45 151 95/62 07/31/17 01:30 151 22 98 Mechanical Ventilator 80 07/31/17 01:18 154 45 99 Mechanical Ventilator 80 07/31/17 01:16 144 45 80 07/31/17 00:00 98.1 152 48 95/62 100 Mechanical Ventilator 80 07/31/17 00:00 80 07/31/17 00:00 111 07/30/17 23:10 109 42 80 07/30/17 21:20 76 35 80 07/30/17 20:23 103 105/51 07/30/17 20:00 80 07/30/17 20:00 97.9 103 24 105/51 97 Mechanical Ventilator 80 07/30/17 20:00 117 07/30/17 19:09 91 33 97 Mechanical Ventilator 80 07/30/17 19:01 87 30 95 Mechanical Ventilator 80 07/30/17 19:00 87 41 80 07/30/17 17:14 82 36 80 07/30/17 16:00 80 07/30/17 16:00 85 07/30/17 16:00 98.5 92 19 119/58 98 Mechanical Ventilator 1.0 80 07/30/17 15:27 80 34 80 07/30/17 13:16 86 32 97 Mechanical Ventilator 60 07/30/17 13:06 85 27 95 Mechanical Ventilator 60 07/30/17 13:06 80 27 80 07/30/17 13:00 88 32 109/70 97 Mechanical Ventilator 60 07/30/17 12:00 98.1 93 29 102/45 96 Mechanical Ventilator 60 07/30/17 12:00 94 07/30/17 12:00 60 Objective: Condition: awake, no signs of respiratory distress, on vent AC 400-16-60% HEENT: atraumatic, normocephalic, Neck: Trach Shiley # 8, secretions scant, yellow, thick Lungs: few scattered rhonchi Heart: HR/BP stable, PICC RUE intact Abdomen: soft, non-tender, G tube Extremities: no C/C/E Critical Care - Subjective ROS Limited/Unobtainable: Yes Interval Events: ABG on 100% FiO2 with evidence of resp acidosis and hypercapnia leucocytosis CXR with extensive PNA s/p trach 07/30 Condition: critical IV Access: PICC EKG Rhythm: Sinus Rhythm FI02: 100 Vent Support Breath Rate: 18 Vent Support Mode: AC Vent Tidal Volume: 400 Sputum Amount: Moderate PEEP: 5.0 PIP: 32 Tube Feeding Amount: 35 I&O: Intake and Output 07/30/17 07/31/17 19:00 07:00 Intake Total 1200 ml 2005 ml Output Total 306 ml 200 ml Balance 894 ml 1805 ml Free Water 120 ml IV Total 660 ml 1520 ml Tube Feeding 420 ml 455 ml Other 30 ml Output Urine Total 305 ml 200 ml Stool Total 1 ml # Bowel Movements 3 CXR: 07/30 Bilateral extensive diffuse interstitial and alveolar infiltrates versus edema, unchanged over one day Sukumar Bloomambrocio)Fariha NP Jul 31, 2017 11:36
--- NOTE | 2017-07-31 11:57 | GI Progress Note ---
Assessment/Plan Problems: (1) S/P percutaneous endoscopic gastrostomy (PEG) tube placement ICD Codes: Z93.1 - Gastrostomy status SNOMED: 845689998 (2) Failure to thrive SNOMED: 30466008 (3) Ventilator dependent ICD Codes: Z99.11 - Dependence on respirator [ventilator] status SNOMED: 957483148 (4) NSTEMI (non-ST elevated myocardial infarction) ICD Codes: I21.4 - Non-ST elevation (NSTEMI) myocardial infarction SNOMED: 297824257 (5) Severe sepsis ICD Codes: A41.9 - Sepsis, unspecified organism; R65.20 - Severe sepsis without septic shock SNOMED: 89671847 (6) Elevated troponin ICD Codes: R74.8 - Abnormal levels of other serum enzymes SNOMED: 615693940, 061572729 (7) Anemia ICD Codes: D64.9 - Anemia, unspecified SNOMED: 490657909 (8) Weakness ICD Codes: R53.1 - Weakness SNOMED: 23633575 (9) Transaminitis ICD Codes: R74.0 - Nonspecific elevation of levels of transaminase and lactic acid dehydrogenase [LDH] SNOMED: 989783197 (10) Protein-calorie malnutrition, severe ICD Codes: E43 - Unspecified severe protein-calorie malnutrition SNOMED: 112034745 (11) Dehydration ICD Codes: E86.0 - Dehydration SNOMED: 77051033 (12) Septic shock ICD Codes: A41.9 - Sepsis, unspecified organism; R65.21 - Severe sepsis with septic shock SNOMED: 10004431 Status: unchanged Status Narrative Discussed with Dr. Sierra. Assessment/Plan Assessment - respiratory failure - dysphagia, s/p prior GJ tube >> now changed to GT - UGIB - no plans for EGD at this time due to ND - NSTEMI - AMS - Anemia - OB stool positive Recommendations now trached EGD to be scheduled pending cardiac clearance, will consider replacement of GJ tube if necessary. GTF per RD monitor H&H closely, stable last few days cardiology f/u PPI q12 abx fu labs Subjective Subjective limited Objective Last 24 Hour Vital Signs Date Time Temp Pulse Resp B/P (MAP) Pulse Ox O2 Delivery O2 Flow Rate FiO2 07/31/17 11:02 76 38 100 07/31/17 09:09 92 122/43 07/31/17 09:09 92 25 100 07/31/17 08:58 92 35 100 07/31/17 08:01 98.4 92 25 122/43 97 Mechanical Ventilator 100 07/31/17 07:43 92 34 Mechanical Ventilator 100 07/31/17 07:36 87 33 98 Mechanical Ventilator 100 07/31/17 07:32 95 33 100 07/31/17 07:08 90 16 100 07/31/17 05:05 98 40 100 07/31/17 04:00 96 07/31/17 04:00 98.4 93 25 95/55 100 Mechanical Ventilator 100 07/31/17 04:00 100 07/31/17 03:19 98 40 100 07/31/17 01:45 151 95/62 07/31/17 01:30 151 22 98 Mechanical Ventilator 80 07/31/17 01:18 154 45 99 Mechanical Ventilator 80 07/31/17 01:16 144 45 80 07/31/17 00:00 98.1 152 48 95/62 100 Mechanical Ventilator 80 07/31/17 00:00 80 07/31/17 00:00 111 07/30/17 23:10 109 42 80 07/30/17 21:20 76 35 80 07/30/17 20:23 103 105/51 07/30/17 20:00 80 07/30/17 20:00 97.9 103 24 105/51 97 Mechanical Ventilator 80 07/30/17 20:00 117 07/30/17 19:09 91 33 97 Mechanical Ventilator 80 07/30/17 19:01 87 30 95 Mechanical Ventilator 80 07/30/17 19:00 87 41 80 07/30/17 17:14 82 36 80 07/30/17 16:00 80 07/30/17 16:00 85 07/30/17 16:00 98.5 92 19 119/58 98 Mechanical Ventilator 1.0 80 07/30/17 15:27 80 34 80 07/30/17 13:16 86 32 97 Mechanical Ventilator 60 07/30/17 13:06 85 27 95 Mechanical Ventilator 60 07/30/17 13:06 80 27 80 07/30/17 13:00 88 32 109/70 97 Mechanical Ventilator 60 07/30/17 12:00 98.1 93 29 102/45 96 Mechanical Ventilator 60 07/30/17 12:00 94 07/30/17 12:00 60 Intake and Output 07/30/17 07/31/17 19:00 07:00 Intake Total 1200 ml 2005 ml Output Total 306 ml 200 ml Balance 894 ml 1805 ml Free Water 120 ml IV Total 660 ml 1520 ml Tube Feeding 420 ml 455 ml Other 30 ml Output Urine Total 305 ml 200 ml Stool Total 1 ml # Bowel Movements 3 Laboratory Tests Test 07/31/17 02:11 07/31/17 03:30 07/31/17 04:00 Arterial Blood pH 7.290 (7.350-7.450) 7.260 (7.350-7.450) Arterial Blood Partial Pressure CO2 54.6 mmHg (35.0-45.0) H 54.0 mmHg (35.0-45.0) H Arterial Blood Partial Pressure O2 82.2 mmHg (75.0-100.0) 98.1 mmHg (75.0-100.0) Arterial Blood HCO3 25.7 mmol/L (22.0-26.0) 23.7 mmol/L (22.0-26.0) Arterial Blood Oxygen Saturation 94.9 % (92.0-98.0) 96.2 % (92.0-98.0) Arterial Blood Base Excess -1.4 -3.6 Jamie Test Positive Positive White Blood Count 15.9 K/UL (4.8-10.8) H Red Blood Count 3.10 M/UL (4.20-5.40) L Hemoglobin 9.1 G/DL (12.0-16.0) L Hematocrit 29.2 % (37.0-47.0) L Mean Corpuscular Volume 94 FL (80-99) Mean Corpuscular Hemoglobin 29.3 PG (27.0-31.0) Mean Corpuscular Hemoglobin Concent 31.1 G/DL (32.0-36.0) L Red Cell Distribution Width 20.5 % (11.6-14.8) H Platelet Count 83 K/UL (150-450) L Mean Platelet Volume 11.6 FL (6.5-10.1) H Neutrophils (%) (Auto) % (45.0-75.0) Lymphocytes (%) (Auto) % (20.0-45.0) Monocytes (%) (Auto) % (1.0-10.0) Eosinophils (%) (Auto) % (0.0-3.0) Basophils (%) (Auto) % (0.0-2.0) Differential Total Cells Counted 100 Neutrophils % (Manual) 88 % (45-75) H Lymphocytes % (Manual) 4 % (20-45) L Monocytes % (Manual) 2 % (1-10) Eosinophils % (Manual) 0 % (0-3) Basophils % (Manual) 0 % (0-2) Band Neutrophils 6 % (0-8) Platelet Estimate Decreased L Platelet Morphology Normal Hypochromasia 1+ Anisocytosis 2+ Sodium Level 146 MMOL/L (136-145) H Potassium Level 3.6 MMOL/L (3.5-5.1) Chloride Level 113 MMOL/L (98-107) H Carbon Dioxide Level 29 MMOL/L (21-32) Anion Gap 4 mmol/L (5-15) L Blood Urea Nitrogen 49 mg/dL (7-18) H Creatinine 1.7 MG/DL (0.55-1.30) H Estimat Glomerular Filtration Rate mL/min (>60) Glucose Level 297 MG/DL (74-106) #H Calcium Level 6.5 MG/DL (8.5-10.1) L Height (Feet): 5 Height (Inches): 0.00 Weight (Pounds): 168 General Appearance: mild distress Cardiovascular: normal rate Respiratory/Chest: normal breath sounds, no respiratory distress, other - trach to vent Abdominal Exam: normal bowel sounds, non tender, soft, GT site - c/d/i Extremities: non-tender [place] Colon N.P. Jul 31, 2017 11:56
--- NOTE | 2017-07-31 12:29 | Diagnostic Imaging Report ---
Indication: Dyspnea Comparison: 07/30/2017 A single view chest radiograph was obtained. Findings: Extensive, heterogeneous patchy airspace opacification of the lungs demonstrated bilaterally. Heart size is stable. Tubes and lines are stable. IMPRESSION: No change of a one-day
[2017-07-31] MEDS: Albuterol/Ipratropium 3ml neb HHN SCH ×2 (13:11→19:58)
--- NOTE | 2017-07-31 16:27 | Neurology Progress Note ---
Interim History Interim History Interim History Ms. Loving continues to be non-verbal. She opens her eyes on deep painful stimuli. She does not make eye contact. She winces on deep pain but does not move. She is still significantly encephalopathic. She is artificially ventilated via her tracheostomy. There has been no significant change in he condition. Review of Systems Neuro Review of Systems Unable to obtain. Objective Physical Exam Last Vital Signs Date Time Temp Pulse Resp B/P (MAP) Pulse Ox O2 Delivery O2 Flow Rate FiO2 07/31/17 16:17 100 07/31/17 14:50 95 38 07/31/17 13:20 Mechanical Ventilator 07/31/17 13:12 96 07/31/17 12:00 97.7 110/56 07/30/17 16:00 1.0 Laboratory Tests Test 07/31/17 02:11 07/31/17 03:30 07/31/17 04:00 Arterial Blood pH 7.290 (7.350-7.450) 7.260 (7.350-7.450) Arterial Blood Partial Pressure CO2 54.6 mmHg (35.0-45.0) H 54.0 mmHg (35.0-45.0) H Arterial Blood Partial Pressure O2 82.2 mmHg (75.0-100.0) 98.1 mmHg (75.0-100.0) Arterial Blood HCO3 25.7 mmol/L (22.0-26.0) 23.7 mmol/L (22.0-26.0) Arterial Blood Oxygen Saturation 94.9 % (92.0-98.0) 96.2 % (92.0-98.0) Arterial Blood Base Excess -1.4 -3.6 Jamie Test Positive Positive White Blood Count 15.9 K/UL (4.8-10.8) H Red Blood Count 3.10 M/UL (4.20-5.40) L Hemoglobin 9.1 G/DL (12.0-16.0) L Hematocrit 29.2 % (37.0-47.0) L Mean Corpuscular Volume 94 FL (80-99) Mean Corpuscular Hemoglobin 29.3 PG (27.0-31.0) Mean Corpuscular Hemoglobin Concent 31.1 G/DL (32.0-36.0) L Red Cell Distribution Width 20.5 % (11.6-14.8) H Platelet Count 83 K/UL (150-450) L Mean Platelet Volume 11.6 FL (6.5-10.1) H Neutrophils (%) (Auto) % (45.0-75.0) Lymphocytes (%) (Auto) % (20.0-45.0) Monocytes (%) (Auto) % (1.0-10.0) Eosinophils (%) (Auto) % (0.0-3.0) Basophils (%) (Auto) % (0.0-2.0) Differential Total Cells Counted 100 Neutrophils % (Manual) 88 % (45-75) H Lymphocytes % (Manual) 4 % (20-45) L Monocytes % (Manual) 2 % (1-10) Eosinophils % (Manual) 0 % (0-3) Basophils % (Manual) 0 % (0-2) Band Neutrophils 6 % (0-8) Platelet Estimate Decreased L Platelet Morphology Normal Hypochromasia 1+ Anisocytosis 2+ Sodium Level 146 MMOL/L (136-145) H Potassium Level 3.6 MMOL/L (3.5-5.1) Chloride Level 113 MMOL/L (98-107) H Carbon Dioxide Level 29 MMOL/L (21-32) Anion Gap 4 mmol/L (5-15) L Blood Urea Nitrogen 49 mg/dL (7-18) H Creatinine 1.7 MG/DL (0.55-1.30) H Estimat Glomerular Filtration Rate mL/min (>60) Glucose Level 297 MG/DL (74-106) #H Calcium Level 6.5 MG/DL (8.5-10.1) L Neurologic Exam Objective PHYSICAL EXAMINATION: GENERAL: She is a well-developed, but lean and ill-looking lady, lying in bed connected to a ventilator via a tracheostomy. HEAD: Normocephalic with a right temporoparietal skull defect. EENT: Examination benign. NECK: No neck rigidity was observed. NEUROLOGICAL EXAMINATION: MENTAL STATUS EXAMINATION: She opened her eyes on deep painful stimuli. She was unable to communicate or follow simple commands. SPEECH: She was intubated. LANGUAGE: Could not be tested adequately because of her altered mental state. CRANIAL NERVE EXAMINATION: II: She did not blink to threat. III, IV & : The external ocular movements were present on OCM and the pupils 3 mm in diameter, equal, round, regular, and reactive to light. V & VII: The corneal reflexes were subdued, but brisker on the right than on the left. She also had mild flattening of the left nasolabial fold. VIII: She did not respond to sounds and had no nystagmus. IX & X: The gag reflex was subdued. XI: The sternocleidomastoids and trapezii did function. XII: Could not be tested. MOTOR SYSTEM: The tone was increased in all four extremities with a mild degree of spasticity, slightly more marked on the left side compared to the right. Examination of muscle mass revealed generalized muscle wasting with bilateral ankle cord contractures. She did not move any of her extremities on deep pain. SENSORY EXAMINATION: She responded minimally to deep pain with wincing in all 4 extremities. REFLEXES: Trace+ on the right and 1+ on the left at the biceps, triceps, brachioradialis, and knees and 0 at both ankles. The plantar responses were extensor bilaterally. COORDINATION, STANCE & GAIT: Could not be tested. Impression/Recommendations Diagnostic Impression 1. Ms. Beatriz Loving is an 87-year-old, lady, of unknown handedness, who does have a past history of hypertension, coronary artery disease, paroxysmal atrial fibrillation, Alzheimer disease, cerebrovascular disease, and right brain surgery for reasons unknown to us, who lives in a senior care. She was hospitalized on 07/16/2017 for shortness of breath associated with hypoxia, elevated troponin, a urinary tract infection, and possibly a pneumonic process. She was stabilized and on 07/21/2017 was extubated. Following that, she was brighter, but later on 07/22/17 she was noted to be more somnolent and slurring her speech. 2. She only responds to deep pain with eye opening and wincing. 3. On neurological examination, at this time, she does have a right temporoparietal skull defect, she only responds to deep pain with eye opening and wincing, has a spastic quadriplegia, and is globally areflexic. 4. The CT scan of the brain without contrast reveals atrophy, deep white matter changes, and a right temporoparietal craniotomy defect, but no acute pathology. 5. Laboratory data on admission revealed that she had a significant leukocytosis with a WBC count of 15.7. She was anemic with a hemoglobin of 9.1. She had a left-sided shift on her white blood cell count. Her arterial blood gas revealed a pCO2 of 51 and a pO2 of 116. A chemistry panel revealed a sodium down to 133, potassium elevated to 5.3, BUN elevated to 24, her glucose elevated to 278, AST elevated to 138, ProBNP was greater than 35,000, her albumin was down to 2.0, and her troponin was elevated to 10.3. Her urinalysis revealed 3+ leukocyte esterase, too numerous to count red blood cells and white blood cells, and many urinary bacteria. 6. The EEG revealed an encephalopathy of moderate degree. 7. Her leukocytosis is better, she is still acidotic and hypercarbic. 8. 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 9. She is still significantly encephalopathic. Her neurologic function is still poor. Recommendations 1. Continue present management. 2. Continue to correct the patient's toxic metabolic imbalances. 3. Correct the patient's anemia to a hemoglobin of greater than 10 G. 4. Observe closely. Ga Dowling M.D., M.S.P.H. GA DOWLING Jul 31, 2017 16:27
--- NOTE | 2017-07-31 17:57 | Cardiac Electrophysiology PN ---
Assessment/Plan Assessment/Plan 1. [id number] myocardial infarction in the setting of left bundle-branch block and severely anemia. Repeat EKG showed normal sinus rhythm with low- voltage QRS, but no ST elevation and left bundle-branch block has already been resolved. Her echocardiogram also showed ejection fraction of 50% with no evidence of left ventricular hypertrophy with mild diastolic dysfunction. Continue medical therapy with Lopressor. 2. Vent dependent Respiratory failure. S/P Tracheostomy. 3. Nonsustained VT. Start Amiodarone 200 bid. 4. Acute toxic metabolic encephalopathy on chronic dementia. 5. Acute anemia due to gi bleed,s/p blood transfusion. 6. Lactic acidosis, likely due to sepsis. DW RN Subjective Subjective Is having runs of 10-20 beats of VT. On Vent via tracheostomy. Objective Last 24 Hour Vital Signs Date Time Temp Pulse Resp B/P (MAP) Pulse Ox O2 Delivery O2 Flow Rate FiO2 07/31/17 16:52 104 36 100 07/31/17 16:17 100 07/31/17 16:16 100 07/31/17 16:00 98.7 101 28 123/59 97 Mechanical Ventilator 100 07/31/17 14:50 95 38 100 07/31/17 13:20 108 42 Mechanical Ventilator 100 07/31/17 13:12 86 43 96 Mechanical Ventilator 100 07/31/17 13:09 87 42 100 07/31/17 12:00 97.7 84 28 110/56 99 Mechanical Ventilator 100 07/31/17 12:00 100 07/31/17 12:00 84 07/31/17 11:02 76 38 100 07/31/17 09:09 92 122/43 07/31/17 09:09 92 25 100 07/31/17 08:58 92 35 100 07/31/17 08:01 98.4 92 25 122/43 97 Mechanical Ventilator 100 07/31/17 08:00 107 07/31/17 08:00 100 07/31/17 07:43 92 34 Mechanical Ventilator 100 07/31/17 07:36 87 33 98 Mechanical Ventilator 100 07/31/17 07:32 95 33 100 07/31/17 07:08 90 16 100 07/31/17 05:05 98 40 100 07/31/17 04:00 96 07/31/17 04:00 98.4 93 25 95/55 100 Mechanical Ventilator 100 07/31/17 04:00 100 07/31/17 03:19 98 40 100 07/31/17 01:45 151 95/62 07/31/17 01:30 151 22 98 Mechanical Ventilator 80 07/31/17 01:18 154 45 99 Mechanical Ventilator 80 07/31/17 01:16 144 45 80 07/31/17 00:00 98.1 152 48 95/62 100 Mechanical Ventilator 80 07/31/17 00:00 80 07/31/17 00:00 111 07/30/17 23:10 109 42 80 07/30/17 21:20 76 35 80 07/30/17 20:23 103 105/51 07/30/17 20:00 80 07/30/17 20:00 97.9 103 24 105/51 97 Mechanical Ventilator 80 07/30/17 20:00 117 07/30/17 19:09 91 33 97 Mechanical Ventilator 80 07/30/17 19:01 87 30 95 Mechanical Ventilator 80 07/30/17 19:00 87 41 80 Intake and Output 07/30/17 07/31/17 19:00 07:00 Intake Total 1200 ml 2005 ml Output Total 306 ml 200 ml Balance 894 ml 1805 ml Free Water 120 ml IV Total 660 ml 1520 ml Tube Feeding 420 ml 455 ml Other 30 ml Output Urine Total 305 ml 200 ml Stool Total 1 ml # Bowel Movements 3 Laboratory Tests Test 07/31/17 02:11 07/31/17 03:30 07/31/17 04:00 Arterial Blood pH 7.290 (7.350-7.450) 7.260 (7.350-7.450) Arterial Blood Partial Pressure CO2 54.6 mmHg (35.0-45.0) H 54.0 mmHg (35.0-45.0) H Arterial Blood Partial Pressure O2 82.2 mmHg (75.0-100.0) 98.1 mmHg (75.0-100.0) Arterial Blood HCO3 25.7 mmol/L (22.0-26.0) 23.7 mmol/L (22.0-26.0) Arterial Blood Oxygen Saturation 94.9 % (92.0-98.0) 96.2 % (92.0-98.0) Arterial Blood Base Excess -1.4 -3.6 Jamie Test Positive Positive White Blood Count 15.9 K/UL (4.8-10.8) H Red Blood Count 3.10 M/UL (4.20-5.40) L Hemoglobin 9.1 G/DL (12.0-16.0) L Hematocrit 29.2 % (37.0-47.0) L Mean Corpuscular Volume 94 FL (80-99) Mean Corpuscular Hemoglobin 29.3 PG (27.0-31.0) Mean Corpuscular Hemoglobin Concent 31.1 G/DL (32.0-36.0) L Red Cell Distribution Width 20.5 % (11.6-14.8) H Platelet Count 83 K/UL (150-450) L Mean Platelet Volume 11.6 FL (6.5-10.1) H Neutrophils (%) (Auto) % (45.0-75.0) Lymphocytes (%) (Auto) % (20.0-45.0) Monocytes (%) (Auto) % (1.0-10.0) Eosinophils (%) (Auto) % (0.0-3.0) Basophils (%) (Auto) % (0.0-2.0) Differential Total Cells Counted 100 Neutrophils % (Manual) 88 % (45-75) H Lymphocytes % (Manual) 4 % (20-45) L Monocytes % (Manual) 2 % (1-10) Eosinophils % (Manual) 0 % (0-3) Basophils % (Manual) 0 % (0-2) Band Neutrophils 6 % (0-8) Platelet Estimate Decreased L Platelet Morphology Normal Hypochromasia 1+ Anisocytosis 2+ Sodium Level 146 MMOL/L (136-145) H Potassium Level 3.6 MMOL/L (3.5-5.1) Chloride Level 113 MMOL/L (98-107) H Carbon Dioxide Level 29 MMOL/L (21-32) Anion Gap 4 mmol/L (5-15) L Blood Urea Nitrogen 49 mg/dL (7-18) H Creatinine 1.7 MG/DL (0.55-1.30) H Estimat Glomerular Filtration Rate mL/min (>60) Glucose Level 297 MG/DL (74-106) #H Calcium Level 6.5 MG/DL (8.5-10.1) L Microbiology Date/Time Source Procedure Growth Status 07/30/17 21:15 Sputum Induced Gram Stain - Final Resulted 07/30/17 21:15 Sputum Induced Sputum Culture Pending Resulted Objective HEAD AND NECK: Shows no JVD. S/P Tracheostomy LUNGS: Decreased breath sounds. Coarse rhonchi. CARDIOVASCULAR: Shows regular S1 and S2 with no gallop. ABDOMEN: Soft. PEG intact EXTREMITIES: No pitting edema. CHELSIE HOUSTON Jul 31, 2017 17:57
[2017-07-31] MEDS: Amiodarone 200mg tab PEG SCH (18:19)
[2017-07-31] MEDS: Dyna-Hex 2% Top Sol 2oz TOPIC SCH (20:52)
[2017-08-01] VITALS: BP 105/50
[2017-08-01] MEDS: Ipratropium 0.02% Inh Soln 2.5ml UD HHN SCH ×3 (01:40→13:32)
[2017-08-01] MEDS: Albuterol/Ipratropium 3ml neb HHN SCH ×3 (01:40→13:31)
[2017-08-01 04:00] VITALS: BP 106/80
[2017-08-01 04:50] LABS: HEMOGLOBIN 9.1 G/DL (12.0-16.0); MEAN CORPUSCULAR VOLUME 95 FL (80-99); PLATELET COUNT 43 K/UL (150-450); RED BLOOD COUNT 3.07 M/UL (4.20-5.40); WHITE BLOOD COUNT 20.7 K/UL (4.8-10.8)
[2017-08-01 05:02] LABS: ANION GAP 7 mmol/L (5-15); BLOOD UREA NITROGEN 55 mg/dL (7-18); CALCIUM 6.5 MG/DL (8.5-10.1); CARBON DIOXIDE 26 MMOL/L (21-32); CHLORIDE 113 MMOL/L (98-107); CREATININE 1.8 MG/DL (0.55-1.30); POTASSIUM 3.9 MMOL/L (3.5-5.1); SODIUM 146 MMOL/L (136-145)
--- NOTE | 2017-08-01 05:13 | General Progress Note ---
Assessment/Plan Problem List: (1) Acute respiratory failure with hypoxia and hypercapnia ICD Codes: J96.01 - Acute respiratory failure with hypoxia; J96.02 - Acute respiratory failure with hypercapnia SNOMED: 30919809, 01454648, 258037805 (2) Severe sepsis ICD Codes: A41.9 - Sepsis, unspecified organism; R65.20 - Severe sepsis without septic shock SNOMED: 37974460 (3) HCAP vs Aspiration pneumonia (4) UTI (urinary tract infection) ICD Codes: N39.0 - Urinary tract infection, site not specified SNOMED: 12263335 (5) Lactic acid acidosis ICD Codes: E87.2 - Acidosis SNOMED: 26167583 (6) NSTEMI (non-ST elevated myocardial infarction) ICD Codes: I21.4 - Non-ST elevation (NSTEMI) myocardial infarction SNOMED: 552301691 (7) Acute on chronic anemia (8) Hyponatremia ICD Codes: E87.1 - Hypo-osmolality and hyponatremia SNOMED: 21511202 (9) paroxsymal atrial fibrillation (10) CAD s/p PCI (11) Ischemic cardiomyopathy ICD Codes: I25.5 - Ischemic cardiomyopathy SNOMED: 968356126 (12) CVA (cerebral vascular accident) ICD Codes: I63.9 - Cerebral infarction, unspecified SNOMED: 600461303 (13) Alzheimer's dementia ICD Codes: G30.9 - Alzheimer's disease, unspecified SNOMED: 66777678 (14) Hypernatremia ICD Codes: E87.0 - Hyperosmolality and hypernatremia SNOMED: 04702550 (15) MABEL (acute kidney injury) ICD Codes: N17.9 - Acute kidney failure, unspecified SNOMED: 31875874 (16) NSVT (nonsustained ventricular tachycardia) ICD Codes: I47.2 - Ventricular tachycardia SNOMED: 126683782 Status: stable Assessment/Plan Pulm, cardiology, ID, GI consulted, appreciate rec's s/p extubation on 07/21/17 re-intubated on 07/26/17 s/p trach on 07/29/17 Hold lasix given MABEL and hypernatremia F/u FFWU sent 07/24 given rising WBC Cont Linezolid, Meropenem per ID; started flagyl and diflucan. Vanco stopped given MABEL F/u cultures Neurology consulted given new onset slurred speech. CT head negative. F/u EEG-- moderate encephalopathy Trend CBC, BMP, lactate Trend trop/EKG --> trop downtrending F/u TTE --> 45% EF with mild LVDD Cont heparin gtt per cardiology (Eliquis on hold) Start amio 200mg BID per cardiology for NSVT s/p 1 unit pRBC transfusion 07/17. Gastric lavage on 07/17 showed e/o bleeding but currently no active signs of bleeding Patient will eventually need EGD/colonoscopy to assess for GIB given acute drop in hemoglobin and positive FOBT. However, patient is unstable at the moment given NSTEMI/elevated trops. Awaiting cardiac clearance PPI BID Continue IV venofer Cont G-tube feedings per GI Supportive care DC planning to LTAC DVT Prophylaxis: SCD, heparin gtt Code Status: Full per discussion w/ pt's DPOA/daughter Hospital Classification Declaration: Based on this initial evaluation, and depending on the patient's clinical course, I anticipate that this patient will require hospitalization for 1-2 days for acute respiratory faiure, severe sepsis and close respiratory/hemodynamic monitoring. Disposition: Once the patient is stable to leave the hospital, I anticipate the patient will likely be discharged to the following environment: back to SNF Plan outlined above discussed with patient/family, cardiology, ID, GI, pulm regarding mgmt and dispo Time of note may not reflect time of encounter. Subjective Date patient seen: Jul 31, 2017 Time patient seen: 15:00 ROS Limited/Unobtainable: Yes Allergies: Coded Allergies: No Known Allergies (Unverified , 05/25/13) Subjective No acute o/n events Cr uptrending to 1.7 and Na down to 146 s/p trach on 07/29/17 Cont on vent Pt lethargic, minimally arousable Objective Last 24 Hour Vital Signs Date Time Temp Pulse Resp B/P (MAP) Pulse Ox O2 Delivery O2 Flow Rate FiO2 08/01/17 04:00 100 08/01/17 04:00 100 08/01/17 04:00 98.2 104 28 106/80 98 Mechanical Ventilator 100 08/01/17 03:11 106 32 100 08/01/17 01:49 110 38 97 Mechanical Ventilator 100 08/01/17 01:40 105 34 100 08/01/17 01:40 105 34 97 Mechanical Ventilator 100 08/01/17 00:00 98.2 109 38 105/50 98 Mechanical Ventilator 100 08/01/17 00:00 90 08/01/17 00:00 100 07/31/17 23:01 101 37 100 07/31/17 21:22 105 38 100 07/31/17 20:53 101 120/77 07/31/17 20:06 101 26 98 Mechanical Ventilator 100 07/31/17 20:00 125 07/31/17 20:00 97.2 90 20 120/77 98 Mechanical Ventilator 100 07/31/17 19:58 108 38 97 Mechanical Ventilator 100 07/31/17 19:58 108 38 100 07/31/17 18:00 104 07/31/17 16:52 104 36 100 07/31/17 16:17 100 07/31/17 16:16 100 07/31/17 16:00 147 07/31/17 16:00 98.7 101 28 123/59 97 Mechanical Ventilator 100 07/31/17 14:50 95 38 100 07/31/17 13:20 108 42 Mechanical Ventilator 100 07/31/17 13:12 86 43 96 Mechanical Ventilator 100 07/31/17 13:09 87 42 100 07/31/17 12:00 97.7 84 28 110/56 99 Mechanical Ventilator 100 07/31/17 12:00 100 07/31/17 12:00 84 07/31/17 11:02 76 38 100 07/31/17 09:09 92 122/43 07/31/17 09:09 92 25 100 07/31/17 08:58 92 35 100 07/31/17 08:01 98.4 92 25 122/43 97 Mechanical Ventilator 100 07/31/17 08:00 107 07/31/17 08:00 100 07/31/17 07:43 92 34 Mechanical Ventilator 100 07/31/17 07:36 87 33 98 Mechanical Ventilator 100 07/31/17 07:32 95 33 100 07/31/17 07:08 90 16 100 Intake and Output 07/31/17 08/01/17 19:00 07:00 Intake Total 520 ml 620 ml Output Total 75 ml Balance 445 ml 620 ml Free Water 120 ml IV Total 620 ml Tube Feeding 280 ml Other 120 ml Output Urine Total 75 ml Laboratory Tests 08/01/17 04:00: White Blood Count 20.7H, Red Blood Count 3.07L, Hemoglobin 9.1L, Hematocrit 29.0L, Mean Corpuscular Volume 95, Mean Corpuscular Hemoglobin 29.7, Mean Corpuscular Hemoglobin Concent 31.4L, Red Cell Distribution Width 20.0H, Platelet Count 43L, Mean Platelet Volume 11.5H, Neutrophils (%) (Auto) , Lymphocytes (%) (Auto) , Monocytes (%) (Auto) , Eosinophils (%) (Auto) , Basophils (%) (Auto) , Neutrophils % (Manual) [Pending], Lymphocytes % (Manual) [Pending], Platelet Estimate [Pending], Platelet Morphology [Pending], Sodium Level [Pending], Potassium Level [Pending], Chloride Level [Pending], Carbon Dioxide Level [Pending], Blood Urea Nitrogen [Pending], Creatinine [Pending], Estimat Glomerular Filtration Rate [Pending], Glucose Level [Pending], Calcium Level [Pending] Height (Feet): 5 Height (Inches): 0.00 Weight (Pounds): 168 Objective General: awake, alert, lethargic, on BiPAP Head: normocephalic, without obvious abnormality, atraumatic Eyes: conjunctivae/corneas clear. PERRL, EOM's intact Throat: lips, mucosa, and tongue normal. MMM Neck: supple, symmetrical, trachea midline, and no JVD Lungs: clear to auscultation bilaterally Heart: regular rate and rhythm, S1, S2 normal, no murmur, click, rub or gallop Abdomen: soft, non-tender, non-distended, bowel sounds normal; +PEG c/d/i Extremities: extremities normal, atraumatic, no cyanosis or edema Pulses: 2+ and symmetric Skin: skin color, texture, turgor normal; no rashes or lesions Neurologic: Kilo Manrique M.D. Aug 01, 2017 05:13
--- NOTE | 2017-08-01 06:30 | Progress Note ---
DATE: 08/01/2017 CARDIOLOGY PROGRESS NOTE SUBJECTIVE: The patient continues to have episodes of nonsustained ventricular tachycardia. She is on ventilator support. She is status post myocardial infarction. OBJECTIVE: VITAL SIGNS: Blood pressure 120/77, pulse 90, and respirations 18. Afebrile. LUNGS: Coarse breath sounds. Scattered rhonchi. HEART: Irregularly irregular rhythm. Normal S1, S2. ABDOMEN: Soft. G-tube intact. EXTREMITIES: No edema. IMPRESSION: 1. Acute myocardial infarction. 2. Acute on chronic systolic and diastolic congestive heart failure. 3. Paroxysmal atrial fibrillation. 4. Nonsustained ventricular tachycardia. 5. Respiratory failure. 6. Encephalopathy with chronic dementia. 7. Sepsis with recovering shock. PLAN: 1. Antimicrobials. 2. Ventilator support via tracheostomy. 3. Skin care. 4. Periodic diuresis. 5. Agree with initiation of amiodarone. 6. Antianginal therapy with ongoing titration. Carlos Cruz M.D. DR: CHRISTOPHER JOB#: [id number] CC:
[2017-08-01 08:00] VITALS: BP 103/53
[2017-08-01] MEDS: Meropenem 1 GM in NS 110 ML IVPB SCH (08:12)
--- NOTE | 2017-08-01 08:30 | Progress Note ---
DATE: 08/01/2017 CARDIOLOGY PROGRESS NOTE SUBJECTIVE: The patient seen and evaluated. Discussed with Dr. Askew from Electrophysiology. She was started on amiodarone yesterday because of recurring ventricular tachycardia in the setting of ischemic heart disease. The patient has tracheostomy and is on ventilator support. She has atrial fibrillation on the monitor with ventricular arrhythmias. OBJECTIVE: VITAL SIGNS: Blood pressure 106/80, pulse 104, respirations 28, afebrile. LUNGS: Coarse breath sound. HEART: Irregularly irregular rhythm. Normal S1, S2. ABDOMEN: Soft. G-tube intact. EXTREMITIES: Trace edema. IMPRESSION AND PLAN: Expect improved heart rate and suppression of arrhythmias with amiodarone. Overall, the patient is at high risk due to comorbidities. She is ventilator dependent. She will require periodic diuresis for her heart failure. Her antianginal regimen will need close titration based on clinical parameters. We will follow with you during this hospital course. Carlos Cruz M.D. DR: LAYNE JOB#: [id number] CC:
[2017-08-01] MEDS: Amiodarone 200mg tab PEG SCH (09:30)
[2017-08-01] MEDS: Pantoprazole Inj IVP SCH (09:30)
[2017-08-01] MEDS: Metoprolol 25mg tab ORAL SCH (09:31)
[2017-08-01] MEDS: Spironolactone 25mg tab NG SCH (09:31)
--- NOTE | 2017-08-01 09:36 | Diagnostic Imaging Report ---
Indication: Dyspnea Technique: XRAY Chest 1v Comparison: 07/31/2017 Findings: Support lines/tubes unchanged in position. Extensive, confluent bilateral interstitial and airspace opacities again noted. There may be slight improved aeration of the right midlung however this may be related to differences in technique/positioning. No definite pneumothorax. No acute osseous abnormality seen. Impression: Persistent extensive confluent bilateral airspace opacities. Question slight improved aeration in the right midlung although this may be related to differences in patient positioning
[2017-08-01 12:00] VITALS: BP 98/58
--- NOTE | 2017-08-01 12:12 | General Progress Note ---
Progress Note Progress Note Surgery: still requiring significant vent support with FiO2 at 100% for hypoxia. pressures good and peep minimal. trach in place and functional without issues. unfortunately very poor prognosis with how dependant she is on the vent. poor lung function overall on maximal medical therapy. \ -continue with trach care and management -can downsize in 2 weeks can remove sutures in 1 week. Teo Del Valle Aug 01, 2017 12:12
--- NOTE | 2017-08-01 13:46 | General Progress Note ---
Assessment/Plan Problem List: (1) Acute respiratory failure with hypoxia and hypercapnia ICD Codes: J96.01 - Acute respiratory failure with hypoxia; J96.02 - Acute respiratory failure with hypercapnia SNOMED: 43279675, 39929676, 308912348 (2) Severe sepsis ICD Codes: A41.9 - Sepsis, unspecified organism; R65.20 - Severe sepsis without septic shock SNOMED: 36070792 (3) HCAP vs Aspiration pneumonia (4) UTI (urinary tract infection) ICD Codes: N39.0 - Urinary tract infection, site not specified SNOMED: 24794075 (5) Lactic acid acidosis ICD Codes: E87.2 - Acidosis SNOMED: 77524478 (6) NSTEMI (non-ST elevated myocardial infarction) ICD Codes: I21.4 - Non-ST elevation (NSTEMI) myocardial infarction SNOMED: 118377634 (7) Acute on chronic anemia (8) Hyponatremia ICD Codes: E87.1 - Hypo-osmolality and hyponatremia SNOMED: 26616095 (9) paroxsymal atrial fibrillation (10) CAD s/p PCI (11) Ischemic cardiomyopathy ICD Codes: I25.5 - Ischemic cardiomyopathy SNOMED: 216832052 (12) CVA (cerebral vascular accident) ICD Codes: I63.9 - Cerebral infarction, unspecified SNOMED: 683551809 (13) Alzheimer's dementia ICD Codes: G30.9 - Alzheimer's disease, unspecified SNOMED: 70889482 (14) Hypernatremia ICD Codes: E87.0 - Hyperosmolality and hypernatremia SNOMED: 28171155 (15) MABEL (acute kidney injury) ICD Codes: N17.9 - Acute kidney failure, unspecified SNOMED: 92570111 (16) NSVT (nonsustained ventricular tachycardia) ICD Codes: I47.2 - Ventricular tachycardia SNOMED: 823242364 Status: stable Assessment/Plan Pulm, cardiology, ID, GI consulted, appreciate rec's s/p extubation on 07/21/17 re-intubated on 07/26/17 s/p trach on 07/29/17 Hold lasix given MABEL and hypernatremia F/u FFWU sent 07/24 given rising WBC Cont Linezolid, Meropenem per ID; started flagyl and diflucan. Vanco stopped given MABEL F/u cultures Neurology consulted given new onset slurred speech. CT head negative. F/u EEG-- moderate encephalopathy Trend CBC, BMP, lactate Trend trop/EKG --> trop downtrending F/u TTE --> 45% EF with mild LVDD Cont heparin gtt per cardiology (Eliquis on hold) Start amio 200mg BID per cardiology for NSVT s/p 1 unit pRBC transfusion 07/17. Gastric lavage on 07/17 showed e/o bleeding but currently no active signs of bleeding Patient will eventually need EGD/colonoscopy to assess for GIB given acute drop in hemoglobin and positive FOBT. However, patient is unstable at the moment given NSTEMI/elevated trops. Awaiting cardiac clearance PPI BID Continue IV venofer Cont G-tube feedings per GI Supportive care DC planning to LTAC DVT Prophylaxis: SCD, heparin gtt Code Status: Full per discussion w/ pt's DPOA/daughter Hospital Classification Declaration: Based on this initial evaluation, and depending on the patient's clinical course, I anticipate that this patient will require hospitalization for 1-2 days for acute respiratory faiure, severe sepsis and close respiratory/hemodynamic monitoring. Disposition: Once the patient is stable to leave the hospital, I anticipate the patient will likely be discharged to the following environment: back to SNF Plan outlined above discussed with patient/family, cardiology, ID, GI, pulm regarding mgmt and dispo Time of note may not reflect time of encounter. Subjective Date patient seen: Aug 01, 2017 Time patient seen: 13:46 ROS Limited/Unobtainable: Yes Allergies: Coded Allergies: No Known Allergies (Unverified , 05/25/13) Subjective No acute o/n events ABG shows worsening respiratory acidosis. Vent setting titrated per pulm Cr uptrending to 1.8 s/p trach on 07/29/17 Cont on vent Pt lethargic, minimally arousable Objective Last 24 Hour Vital Signs Date Time Temp Pulse Resp B/P (MAP) Pulse Ox O2 Delivery O2 Flow Rate FiO2 08/01/17 12:00 100 08/01/17 12:00 98.5 94 30 98/58 98 Mechanical Ventilator 100 08/01/17 11:11 104 34 100 08/01/17 09:41 99 32 100 08/01/17 09:31 92 103/53 08/01/17 08:20 92 34 92 Mechanical Ventilator 100 08/01/17 08:07 91 33 98 Mechanical Ventilator 100 08/01/17 08:03 91 33 100 08/01/17 08:00 98 08/01/17 08:00 97.0 99 27 103/53 92 Mechanical Ventilator 100 08/01/17 08:00 100 08/01/17 05:38 98 31 100 08/01/17 04:00 100 08/01/17 04:00 100 08/01/17 04:00 98.2 104 28 106/80 98 Mechanical Ventilator 100 08/01/17 03:11 106 32 100 08/01/17 01:49 110 38 97 Mechanical Ventilator 100 08/01/17 01:40 105 34 100 08/01/17 01:40 105 34 97 Mechanical Ventilator 100 08/01/17 00:00 98.2 109 38 105/50 98 Mechanical Ventilator 100 08/01/17 00:00 90 08/01/17 00:00 100 07/31/17 23:01 101 37 100 07/31/17 21:22 105 38 100 07/31/17 20:53 101 120/77 07/31/17 20:06 101 26 98 Mechanical Ventilator 100 07/31/17 20:00 125 07/31/17 20:00 97.2 90 20 120/77 98 Mechanical Ventilator 100 07/31/17 19:58 108 38 97 Mechanical Ventilator 100 07/31/17 19:58 108 38 100 07/31/17 18:00 104 07/31/17 16:52 104 36 100 07/31/17 16:17 100 07/31/17 16:16 100 07/31/17 16:00 147 07/31/17 16:00 98.7 101 28 123/59 97 Mechanical Ventilator 100 07/31/17 14:50 95 38 100 Intake and Output 07/31/17 08/01/17 19:00 07:00 Intake Total 520 ml 620 ml Output Total 75 ml 50 ml Balance 445 ml 570 ml Free Water 120 ml IV Total 620 ml Tube Feeding 280 ml Other 120 ml Output Urine Total 75 ml 50 ml Laboratory Tests 08/01/17 04:00: White Blood Count 20.7H, Red Blood Count 3.07L, Hemoglobin 9.1L, Hematocrit 29.0L, Mean Corpuscular Volume 95, Mean Corpuscular Hemoglobin 29.7, Mean Corpuscular Hemoglobin Concent 31.4L, Red Cell Distribution Width 20.0H, Platelet Count 43L, Mean Platelet Volume 11.5H, Neutrophils (%) (Auto) , Lymphocytes (%) (Auto) , Monocytes (%) (Auto) , Eosinophils (%) (Auto) , Basophils (%) (Auto) , Differential Total Cells Counted 100, Neutrophils % ( Manual) 94H, Lymphocytes % (Manual) 2L, Monocytes % (Manual) 1, Eosinophils % ( Manual) 0, Basophils % (Manual) 0, Band Neutrophils 3, Platelet Estimate DecreasedL, Platelet Morphology Normal, Sodium Level 146H, Potassium Level 3.9, Chloride Level 113H, Carbon Dioxide Level 26, Anion Gap 7, Blood Urea Nitrogen 55H, Creatinine 1.8H, Estimat Glomerular Filtration Rate , Glucose Level 187#H, Calcium Level 6.5L 08/01/17 11:40: Arterial Blood pH 7.267L, Arterial Blood Partial Pressure CO2 59.3*H, Arterial Blood Partial Pressure O2 120.9H, Arterial Blood HCO3 26.4H, Arterial Blood Oxygen Saturation 97.9, Arterial Blood Base Excess -1.0, Jamie Test Positive Height (Feet): 5 Height (Inches): 0.00 Weight (Pounds): 170 Objective General: awake, alert, lethargic, on BiPAP Head: normocephalic, without obvious abnormality, atraumatic Eyes: conjunctivae/corneas clear. PERRL, EOM's intact Throat: lips, mucosa, and tongue normal. MMM Neck: supple, symmetrical, trachea midline, and no JVD Lungs: clear to auscultation bilaterally Heart: regular rate and rhythm, S1, S2 normal, no murmur, click, rub or gallop Abdomen: soft, non-tender, non-distended, bowel sounds normal; +PEG c/d/i Extremities: extremities normal, atraumatic, no cyanosis or edema Pulses: 2+ and symmetric Skin: skin color, texture, turgor normal; no rashes or lesions Neurologic: Kilo Manrique M.D. Aug 01, 2017 13:46
--- NOTE | 2017-08-01 14:20 | Neurology Progress Note ---
Interim History Interim History Interim History Ms. Loving continues to be non-verbal. She opens her eyes on deep painful stimuli. She does not make eye contact. She winces on deep pain but does not move. She is still significantly encephalopathic. She is artificially ventilated via her tracheostomy. There has been no significant change in he condition. Review of Systems Neuro Review of Systems Unable to obtain. Objective Physical Exam Last Vital Signs Date Time Temp Pulse Resp B/P (MAP) Pulse Ox O2 Delivery O2 Flow Rate FiO2 08/01/17 14:05 60 08/01/17 13:53 96 31 98 Mechanical Ventilator 08/01/17 12:00 98.5 98/58 07/30/17 16:00 1.0 Laboratory Tests Test 08/01/17 04:00 08/01/17 11:40 White Blood Count 20.7 K/UL (4.8-10.8) H Red Blood Count 3.07 M/UL (4.20-5.40) L Hemoglobin 9.1 G/DL (12.0-16.0) L Hematocrit 29.0 % (37.0-47.0) L Mean Corpuscular Volume 95 FL (80-99) Mean Corpuscular Hemoglobin 29.7 PG (27.0-31.0) Mean Corpuscular Hemoglobin Concent 31.4 G/DL (32.0-36.0) L Red Cell Distribution Width 20.0 % (11.6-14.8) H Platelet Count 43 K/UL (150-450) L Mean Platelet Volume 11.5 FL (6.5-10.1) H Neutrophils (%) (Auto) % (45.0-75.0) Lymphocytes (%) (Auto) % (20.0-45.0) Monocytes (%) (Auto) % (1.0-10.0) Eosinophils (%) (Auto) % (0.0-3.0) Basophils (%) (Auto) % (0.0-2.0) Differential Total Cells Counted 100 Neutrophils % (Manual) 94 % (45-75) H Lymphocytes % (Manual) 2 % (20-45) L Monocytes % (Manual) 1 % (1-10) Eosinophils % (Manual) 0 % (0-3) Basophils % (Manual) 0 % (0-2) Band Neutrophils 3 % (0-8) Platelet Estimate Decreased L Platelet Morphology Normal Sodium Level 146 MMOL/L (136-145) H Potassium Level 3.9 MMOL/L (3.5-5.1) Chloride Level 113 MMOL/L (98-107) H Carbon Dioxide Level 26 MMOL/L (21-32) Anion Gap 7 mmol/L (5-15) Blood Urea Nitrogen 55 mg/dL (7-18) H Creatinine 1.8 MG/DL (0.55-1.30) H Estimat Glomerular Filtration Rate mL/min (>60) Glucose Level 187 MG/DL (74-106) #H Calcium Level 6.5 MG/DL (8.5-10.1) L Arterial Blood pH 7.267 (7.350-7.450) Arterial Blood Partial Pressure CO2 59.3 mmHg (35.0-45.0) *H Arterial Blood Partial Pressure O2 120.9 mmHg (75.0-100.0) H Arterial Blood HCO3 26.4 mmol/L (22.0-26.0) H Arterial Blood Oxygen Saturation 97.9 % (92.0-98.0) Arterial Blood Base Excess -1.0 Jamie Test Positive Neurologic Exam Objective PHYSICAL EXAMINATION: GENERAL: She is a well-developed, but lean and ill-looking lady, lying in bed connected to a ventilator via a tracheostomy. HEAD: Normocephalic with a right temporoparietal skull defect. EENT: Examination benign. NECK: No neck rigidity was observed. NEUROLOGICAL EXAMINATION: MENTAL STATUS EXAMINATION: She opened her eyes on deep painful stimuli. She was unable to communicate or follow simple commands. SPEECH: She was intubated. LANGUAGE: Could not be tested adequately because of her altered mental state. CRANIAL NERVE EXAMINATION: II: She did not blink to threat. III, IV & : The external ocular movements were present on OCM and the pupils 3 mm in diameter, equal, round, regular, and reactive to light. V & VII: The corneal reflexes were subdued, but brisker on the right than on the left. She also had mild flattening of the left nasolabial fold. VIII: She did not respond to sounds and had no nystagmus. IX & X: The gag reflex was subdued. XI: The sternocleidomastoids and trapezii did function. XII: Could not be tested. MOTOR SYSTEM: The tone was increased in all four extremities with a mild degree of spasticity, slightly more marked on the left side compared to the right. Examination of muscle mass revealed generalized muscle wasting with bilateral ankle cord contractures. She did not move any of her extremities on deep pain. SENSORY EXAMINATION: She responded minimally to deep pain with wincing in all 4 extremities. REFLEXES: Trace+ on the right and 1+ on the left at the biceps, triceps, brachioradialis, and knees and 0 at both ankles. The plantar responses were extensor bilaterally. COORDINATION, STANCE & GAIT: Could not be tested. Impression/Recommendations Diagnostic Impression 1. Ms. Beatriz Loving is an 87-year-old, lady, of unknown handedness, who does have a past history of hypertension, coronary artery disease, paroxysmal atrial fibrillation, Alzheimer disease, cerebrovascular disease, and right brain surgery for reasons unknown to us, who lives in a long term. She was hospitalized on 07/16/2017 for shortness of breath associated with hypoxia, elevated troponin, a urinary tract infection, and possibly a pneumonic process. She was stabilized and on 07/21/2017 was extubated. Following that, she was brighter, but later on 07/22/17 she was noted to be more somnolent and slurring her speech. 2. She only responds to deep pain with eye opening and wincing. 3. On neurological examination, at this time, she does have a right temporoparietal skull defect, she only responds to deep pain with eye opening and wincing, has a spastic quadriplegia, and is globally areflexic. 4. The CT scan of the brain without contrast reveals atrophy, deep white matter changes, and a right temporoparietal craniotomy defect, but no acute pathology. 5. Laboratory data on admission revealed that she had a significant leukocytosis with a WBC count of 15.7. She was anemic with a hemoglobin of 9.1. She had a left-sided shift on her white blood cell count. Her arterial blood gas revealed a pCO2 of 51 and a pO2 of 116. A chemistry panel revealed a sodium down to 133, potassium elevated to 5.3, BUN elevated to 24, her glucose elevated to 278, AST elevated to 138, ProBNP was greater than 35,000, her albumin was down to 2.0, and her troponin was elevated to 10.3. Her urinalysis revealed 3+ leukocyte esterase, too numerous to count red blood cells and white blood cells, and many urinary bacteria. 6. The EEG revealed an encephalopathy of moderate degree. 7. Her leukocytosis is worse, her BUN and CR are trending up, she is still acidotic and hypercarbic. 8. 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 9. She is still significantly encephalopathic. Her neurologic function is still poor. Recommendations 1. Continue present management. 2. Continue to correct the patient's toxic metabolic imbalances. 3. Correct the patient's anemia to a hemoglobin of greater than 10 G. 4. Observe closely. Daniel Dowling M.D., M.S.P.Job. DANIEL DOWLING Aug 01, 2017 14:20
[2017-08-01 16:00] VITALS: BP 66/33
--- NOTE | 2017-08-01 16:21 | Infectious Diseases Prog Note ---
Assessment/Plan Assessment/Plan ASSESSMENT AND PLAN: 1. e.coli uti, mrsa uti, pna, sc-negative, ARDS, klebsiella/e.coli/strep g-tube infection, sepsis, legionella negative, respiratory failure/vent, re-intubated leukocytosis worse, ? c.diff., ? fungemia, thu albicans/fungal uti, trach, vent, FIO2 - 60 %, MABEL - CT scan noted and c/w pna/ARDS, no abscess - check labs and chest x-ray - zyvox and meropenem, flagyl - micafungin started and diflucan discontinue secondary to amiodarone being started and drug interaction - SDU and supportive care - check surveillance cultures 2. The patient has severe anemia. 3. Respiratory failure, on ventilator. 4. Dysphagia, on gastrostomy tube. 5. Skin care protocol. Wounds were reviewed. They do not look acutely infected. 6. Hypertension. 7. Cardiomyopathy. 8. CVA. 9. Coronary artery disease. 10. Percutaneous coronary intervention of the left anterior descending. 11. Atrial fibrillation. 12. Alzheimer's. 13. Dementia. 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 15. Blood pressure treatment for hypertension per primary. 16. Allergies are negative. 17. Family number is noncontributory. 18. Social history is negative. 19. MAR was noted. 20. Case was discussed with RN. 21. Continue treatment per primary consultants. 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, vre colonization and isolation Subjective Constitutional: Reports: other - + trach, no pressors, fio2 - 60 %, Denies: fever HEENT: Reports: congestion Respiratory: Reports: shortness of breath Gastrointestinal/Abdominal: Denies: nausea, vomiting, diarrhea Genitourinary: Reports: other - + blake Neurologic: Reports: weakness, other - opens eyes Psychiatric: Reports: no symptoms Skin: Denies: rash Hematologic: Denies: bleeding Musculoskeletal: Denies: pain Allergies: Coded Allergies: No Known Allergies (Unverified , 05/25/13) Objective Vital Signs Last 24 Hour Vital Signs Date Time Temp Pulse Resp B/P (MAP) Pulse Ox O2 Delivery O2 Flow Rate FiO2 08/01/17 15:35 96 27 50 08/01/17 14:05 60 08/01/17 13:53 96 31 98 Mechanical Ventilator 90 08/01/17 13:51 95 34 90 08/01/17 13:31 92 30 97 Mechanical Ventilator 90 08/01/17 12:00 94 08/01/17 12:00 100 08/01/17 12:00 98.5 94 30 98/58 98 Mechanical Ventilator 100 08/01/17 11:11 104 34 100 08/01/17 09:41 99 32 100 08/01/17 09:31 92 103/53 08/01/17 08:20 92 34 92 Mechanical Ventilator 100 08/01/17 08:07 91 33 98 Mechanical Ventilator 100 08/01/17 08:03 91 33 100 08/01/17 08:00 98 08/01/17 08:00 97.0 99 27 103/53 92 Mechanical Ventilator 100 08/01/17 08:00 100 08/01/17 05:38 98 31 100 08/01/17 04:00 100 08/01/17 04:00 100 08/01/17 04:00 98.2 104 28 106/80 98 Mechanical Ventilator 100 08/01/17 03:11 106 32 100 08/01/17 01:49 110 38 97 Mechanical Ventilator 100 08/01/17 01:40 105 34 100 08/01/17 01:40 105 34 97 Mechanical Ventilator 100 08/01/17 00:00 98.2 109 38 105/50 98 Mechanical Ventilator 100 08/01/17 00:00 90 08/01/17 00:00 100 07/31/17 23:01 101 37 100 07/31/17 21:22 105 38 100 07/31/17 20:53 101 120/77 07/31/17 20:06 101 26 98 Mechanical Ventilator 100 07/31/17 20:00 125 07/31/17 20:00 97.2 90 20 120/77 98 Mechanical Ventilator 100 07/31/17 19:58 108 38 97 Mechanical Ventilator 100 07/31/17 19:58 108 38 100 07/31/17 18:00 104 07/31/17 16:52 104 36 100 07/31/17 16:17 100 07/31/17 16:16 100 Height (Feet): 5 Height (Inches): 0.00 Weight (Pounds): 170 General Appearance: other - on vent HEENT: normocephalic, atraumatic, anicteric, mucous membranes moist, no JVD, status post trach Respiratory/Chest: crackles/rales, rhonchi - bilaterally Cardiovascular: normal rate, regular rhythm, no gallop/murmur, no JVD Abdomen: normal bowel sounds, soft, non tender, no organomegaly, non distended Genitourinary: other - + blake - urine clear Extremities: no cyanosis Skin: no rash Neurologic/Psychiatric: mold changer II-XII grossly normal, motor weakness, other - opens eyes Lymphatic: no neck adenopathy Musculoskeletal: no effusion Objective Chest x-ray - 07/26: Impression: Interval endotracheal intubation. ET tube tip 1.9 cm above the dino. Persistent extensive bilateral airspace opacities and bilateral pleural effusions with slight worsening of aeration of the right lower lung compared to the prior exam. No pneumothorax. CT scan: IMPRESSION: Extensive airspace disease within the lungs bilaterally etiology unknown. ARDS and diffuse extensive pneumonia are among the differential considerations. Mild to moderate bilateral pleural effusions Trace ascites Anasarca Atherosclerotic vascular disease Gastrostomy, Blake catheter, endotracheal tube and central venous catheter is in good position. Left total hip arthroplasty Chest x-ray 07/28 - marginal improvement in extensive airspace disease Chest x-ray - 07/30 - Impression: Bilateral extensive diffuse interstitial and alveolar infiltrates versus edema, unchanged over one day Interim exchange of endotracheal tube for tracheostomy. No radiographically evident complication CT scan: IMPRESSION: Extensive airspace disease within the lungs bilaterally etiology unknown. ARDS and diffuse extensive pneumonia are among the differential considerations. Mild to moderate bilateral pleural effusions Trace ascites Anasarca Atherosclerotic vascular disease Gastrostomy, Blake catheter, endotracheal tube and central venous catheter is in good position. 08/01/17 - chest x-ray - Impression: Persistent extensive confluent bilateral airspace opacities. Question slight improved aeration in the right midlung although this may be related to differences in patient positioning Microbiology Date/Time Source Procedure Growth Status 07/24/17 10:50 Blood Blood Culture - Final NO GROWTH AFTER 5 DAYS Complete 07/17/17 01:20 Wound Gram Stain - Final Complete 07/17/17 01:20 Wound Culture - Final Klebsiella Pneumoniae Escherichia Coli Enterococcus Faecalis Complete 07/30/17 21:15 Sputum Induced Gram Stain - Final Resulted 07/30/17 21:15 Sputum Induced Sputum Culture Pending Resulted 07/17/17 08:00 Stool Clostridium difficile Toxin Assay - Final Complete 07/24/17 10:00 Urine,Clean Catch Urine Culture - Final Thu Albicans Complete 07/16/17 19:30 Rectum VRE Culture - Final Enterococcus Faecalis - Vre Complete Microbiology Date/Time Source Procedure Growth Status 07/30/17 21:15 Sputum Induced Gram Stain - Final Resulted 07/30/17 21:15 Sputum Induced Sputum Culture Pending Resulted Laboratory Tests Test 08/01/17 04:00 08/01/17 11:40 White Blood Count 20.7 K/UL (4.8-10.8) H Red Blood Count 3.07 M/UL (4.20-5.40) L Hemoglobin 9.1 G/DL (12.0-16.0) L Hematocrit 29.0 % (37.0-47.0) L Mean Corpuscular Volume 95 FL (80-99) Mean Corpuscular Hemoglobin 29.7 PG (27.0-31.0) Mean Corpuscular Hemoglobin Concent 31.4 G/DL (32.0-36.0) L Red Cell Distribution Width 20.0 % (11.6-14.8) H Platelet Count 43 K/UL (150-450) L Mean Platelet Volume 11.5 FL (6.5-10.1) H Neutrophils (%) (Auto) % (45.0-75.0) Lymphocytes (%) (Auto) % (20.0-45.0) Monocytes (%) (Auto) % (1.0-10.0) Eosinophils (%) (Auto) % (0.0-3.0) Basophils (%) (Auto) % (0.0-2.0) Differential Total Cells Counted 100 Neutrophils % (Manual) 94 % (45-75) H Lymphocytes % (Manual) 2 % (20-45) L Monocytes % (Manual) 1 % (1-10) Eosinophils % (Manual) 0 % (0-3) Basophils % (Manual) 0 % (0-2) Band Neutrophils 3 % (0-8) Platelet Estimate Decreased L Platelet Morphology Normal Sodium Level 146 MMOL/L (136-145) H Potassium Level 3.9 MMOL/L (3.5-5.1) Chloride Level 113 MMOL/L (98-107) H Carbon Dioxide Level 26 MMOL/L (21-32) Anion Gap 7 mmol/L (5-15) Blood Urea Nitrogen 55 mg/dL (7-18) H Creatinine 1.8 MG/DL (0.55-1.30) H Estimat Glomerular Filtration Rate mL/min (>60) Glucose Level 187 MG/DL (74-106) #H Calcium Level 6.5 MG/DL (8.5-10.1) L Arterial Blood pH 7.267 (7.350-7.450) Arterial Blood Partial Pressure CO2 59.3 mmHg (35.0-45.0) *H Arterial Blood Partial Pressure O2 120.9 mmHg (75.0-100.0) H Arterial Blood HCO3 26.4 mmol/L (22.0-26.0) H Arterial Blood Oxygen Saturation 97.9 % (92.0-98.0) Arterial Blood Base Excess -1.0 Jamie Test Positive Current Medications Medications (Trade) Dose Ordered Sig/Analia Route PRN Reason Start Time Stop Time Status Last Admin Dose Admin Acetaminophen (Tylenol) 650 mg Q4H PRN ORAL fever 07/30/17 14:15 08/15/17 22:14 Albuterol/ Ipratropium (Albuterol/ Ipratropium) 3 ml Q4H PRN HHN Shortness of Breath 07/30/17 16:30 08/02/17 12:29 Albuterol/ Ipratropium (Albuterol/ Ipratropium) 3 ml Q6HRT N 07/31/17 13:00 08/05/17 12:59 08/01/17 13:31 Amiodarone HCl (Cordarone) 200 mg EVERY 12 HOURS PEG 07/31/17 18:30 08/30/17 18:29 08/01/17 09:30 Atorvastatin Calcium (Lipitor) 10 mg BEDTIME GT 07/30/17 21:00 08/16/17 20:59 07/31/17 20:53 Chlorhexidine Gluconate (Joana-Hex 2%) 1 applic DAILY@2000 TOPIC 07/30/17 20:00 08/22/17 19:59 07/31/17 20:52 Ipratropium [place] (Atrovent) 500 mcg Q6HRT HHN 07/30/17 19:00 08/04/17 01:02 07/31/17 07:35 Linezolid 300 ml @ 300 mls/hr EVERY 12 HOURS IVPB 07/30/17 21:00 08/06/17 20:59 08/01/17 09:29 Lorazepam (Ativan 2mg/ml 1ml) 2 mg Q4H PRN IV For Anxiety 07/30/17 16:15 08/02/17 16:14 Meropenem 1 gm/ Sodium Chloride 110 ml @ 220 mls/hr Q12HR@0800,2000 IVPB 08/01/17 20:00 08/04/17 19:59 Metoprolol Tartrate (Lopressor) 25 mg Q12HR ORAL 07/31/17 09:00 08/30/17 08:59 08/01/17 09:31 Metronidazole 100 ml @ 100 mls/hr Q8HR IVPB 07/30/17 22:00 08/06/17 21:59 08/01/17 13:58 Micafungin Sodium 100 mg/Sodium Chloride 100 ml @ 100 mls/hr Q24H IVPB 08/01/17 16:15 08/08/17 16:14 UNV Morphine Sulfate (Morphine Sulfate) 2 mg Q4H PRN IVP PAIN 4-10 07/30/17 14:45 08/04/17 01:02 Ondansetron HCl (Zofran) 4 mg Q6H PRN IVP Nausea & Vomiting 07/30/17 16:15 08/15/17 22:14 Pantoprazole (Protonix) 40 mg EVERY 12 HOURS IVP 07/30/17 21:00 08/25/17 20:59 08/01/17 09:30 Polyethylene Glycol (Miralax) 17 gm DAILYPRN PRN GT Constipation 07/30/17 14:15 08/15/17 22:14 MIHAELA TUBBS Aug 01, 2017 16:21
[2017-08-01] MEDS ORDERED: Ipratropium 0.02% Inh Soln 2.5ml UD HHN SCH (19:00)
[2017-08-01] MEDS ORDERED: Albuterol/Ipratropium 3ml neb HHN PRN (19:30)
[2017-08-01] MEDS ORDERED: Morphine Sulfate 2mg/ml Inj IVP PRN (19:30)
[2017-08-01] MEDS ORDERED: LORazepam Inj 2mg/ml 1ml IV PRN (19:30)
[2017-08-01] MEDS ORDERED: GI Cocktail 120ml ORAL PRN (19:30)
[2017-08-01] MEDS ORDERED: Miralax 17gm pkt GT PRN (19:30)
[2017-08-01] MEDS ORDERED: NS 275ml ONE (19:44)
[2017-08-01] MEDS ORDERED: D5 1/2NS 1000ml IV ONE (19:44)
[2017-08-01] MEDS ORDERED: NS 500ML ONE (19:44)
[2017-08-01] MEDS ORDERED: Tubing IV Secondary IV ONE ×3 (19:44)
[2017-08-01] MEDS ORDERED: Dyna-Hex 2% Top Sol 2oz TOPIC SCH (20:00)
[2017-08-01] MEDS ORDERED: Meropenem 1 GM in NS 110 ML IVPB SCH ×4 (20:00)
[2017-08-01] MEDS ORDERED: Albuterol/Ipratropium 3ml neb HHN SCH (20:00)
[2017-08-01] MEDS ORDERED: Pantoprazole Inj IVP SCH (21:00)
[2017-08-01] MEDS ORDERED: Metoprolol 25mg tab ORAL SCH (21:00)
[2017-08-01] MEDS ORDERED: Amiodarone 200mg tab PEG SCH (21:00)
--- NOTE | 2017-08-01 23:41 | Emergency Room Report ---
History of Present Illness General Chief Complaint: Dyspnea/Respdistress Source: Medical Record, PMD Present Illness Allergies: Coded Allergies: No Known Allergies (Unverified , 05/25/13) Patient History Now: No Nursing Documentation-PMH Past Medical History: No History, Except For Hx Cardiac Problems: Yes Hx Hypertension: Yes Hx Cancer: No Hx Gastrointestinal Problems: Yes Hx Neurological Problems: Yes Hx Alzheimer's Disease: Yes Hx Concentration Difficulty: Yes Hx Syncope: Yes Physical Exam Vital Signs Date Time Temp Pulse Resp B/P (MAP) Pulse Ox O2 Delivery O2 Flow Rate FiO2 07/16/17 18:31 98.2 109 26 146/63 81 Non-Rebreather 07/16/17 18:41 100 07/21/17 10:25 2.0 Procedures Critical Care Time Critical Care Time i. I feel this is a highly complex case requiring extensive working including EKG/Rhythm strip, Xray/CT/US, Blood/urine lab work, repeat exams while in ED, and administration of strong opiates/narcotics for pain control, admission to hospital or close patient follow up. Total time: 30 min bedside evaluation and treatment excludes procedures (EKG). Reason for critical care: Cardiac arrest Possible complications: hypotension, hypertension, MO, shock, arrhythmias, metabolic acidosis, end organ damage, respiratory failure. Interventions: ACLS, chest compressions, epinephrine, calcium, bicarbonate Course: Patient became hypotensive and was started on pressors. Patient became bradycardic and then lost pulses. Chest compressions started. Epinephrine given. Given calcium and bicarbonate. Epinephrine given multiple times patient became pulses briefly. Pressors continued. Patient moved to ICU. Upon arrival in ICU patient again lost pulses. Chest compressions continued. Given again multiple rounds of epinephrine but patient remains in asystole. Prognosis is poor. resuscitiative efforts terminated. Patient expires Consultations: nursing staff, EMS, family Performed by: Dr Culp Tolerated well condition = critical j. because of unstable vital signs this patient had a condition that could potentially threaten life or limb. I feel this is a critical patient who required my full attention while patient was considered critical. Total Critical Care Time excluding procedures was greater than 35 minutes CPR/Code Blue CPR/Code Blue Narrative see code blue sheet for full narrative Medical Decision Making Diagnostic Impression: Primary Impression: Septic shock Additional Impressions: Elevated troponin Pneumonia Demand ischemia of myocardium ER Course I was called to the [facility] to respond to this CODE BLUE. Patient became bradycardic and lost pulses. Patient was just started on pressors. Chest compressions started. Given epinephrine multiple times. Given calcium and bicarbonate. Patient regained pulses briefly and during transferred to ICU patient again lost pulses. Chest compressions and continued patient given multiple rounds of epinephrine. Patient remains in asystole. At this time prognosis is poor. Likelihood of neurological outcome is minimal. Resuscitative efforts terminated. Patient expires Last Vital Signs Date Time Temp Pulse Resp B/P (MAP) Pulse Ox O2 Delivery O2 Flow Rate FiO2 08/01/17 17:06 94 27 50 08/01/17 16:00 96.5 66/33 95 Mechanical Ventilator 07/30/17 16:00 1.0 Status: worsened Disposition: Condition: Referrals: JEAN-PIERRE DEUTSCH (PCP) TIMMY CULP M.D. Aug 01, 2017 23:41
--- NOTE | 2017-08-02 13:09 | Discharge Summary ---
Discharge Summary Hospital Course Date of Admission Jul 16, 2017 at 19:26 Date of Discharge Aug 01, 2017 at 19:45 () Admitting Diagnosis acute respiratory failure, sepsis Reason for Hospitalization: acute respiratory failure, sepsis HPI 87y/o female with pmh of ischemic cardiomyopathy (EF 40% per ECHO 07/2017), CVA , CAD s/p PCI to LAD (10/20/16), pAfib on Eliquis, Alzheimer's Dementia, s/p PEG , diffuse severe gastropathy, HTN who presents with SOB. Pt noted to be in respiratory distress w/ hypoxia at SNF. O2 sats in 80s per report. Pt more lethargic. No reports of f/c, n/v, d/c, chest pain. At baseline pt has dementia and is only A&Ox1. In ED, pt noted to by hypoxic and hypercapneic on ABG. She was trialed on BiPAP but failed to improved so she was eventually intubated. Labs showed leukocytosisT to 15.7K, lactic acidosis to 9, elevated troponin to 10. Pt was started on heparin gtt per cardiology. She was also given IVFs, zosyn, and azithro in ED. Consultations Pulmonology, Cardiology, Infectious disease, Gastroenterology Hospital Course Pt was admitted to ICU given acute respiratory failure requiring intubation. Pt was found to be in severe sepsis and was continued on broad-spectrum antibiotics per ID for possible pneumonia and UTI.Pt also w/ NSTEMI and was started on heparin gtt for medical mgmt. TTE showed EF 45%, diastolic dysfunction. There was concern for GI bleed as G-tube lavage w/ e/o blood but pt not stable for endoscopy per GI in setting of NSTEMI. Pt was treated w/ PPI gtt and hgb stabilized. Pt was ultimately extubated on 07/21/17 but she continued to require BiPAP and would desaturate when taken off BiPAP. Pt was in CHF so was given lasix IV w/ some improvement in volume status. Ultimately pt underwent tracheostomy on 07/29/17. Pt with worsening leukocytosis, and antibiotics adjusted per ID. Pt also w/ episodes of NSVT and was started on amiodarone per cardiology. Pt w/ MABEL and hypernatremia likely 2/2 overdiuresis so lasix was held. On 08/01/17 pt with worsening respiratory status despite being on ventilator. ABG showed worsening respiratory acidosis. Pt then had had cardiac arrest and code blue called (of note, multiple discussions w/ daughter had taken place and she insisted on full code). Pt was started on pressors and despite resuscitation efforts w/ multiople rounds of epinephrine she only had brief ROSC. Ultimately, pt w/ no further ROSC so she was pronounced . Family was called. physical exam: Pt unresponsive Pupils fixed and dilated No heart sounds No breath sounds Discharge diagnoses: (1) Acute respiratory failure with hypoxia and hypercapnia ICD Codes: J96.01 - Acute respiratory failure with hypoxia; J96.02 - Acute respiratory failure with hypercapnia SNOMED: 62388753, 75986965, 330193878 (2) Severe sepsis ICD Codes: A41.9 - Sepsis, unspecified organism; R65.20 - Severe sepsis without septic shock SNOMED: 45872160 (3) HCAP vs Aspiration pneumonia (4) UTI (urinary tract infection) ICD Codes: N39.0 - Urinary tract infection, site not specified SNOMED: 76967009 (5) Lactic acid acidosis ICD Codes: E87.2 - Acidosis SNOMED: 33110432 (6) NSTEMI (non-ST elevated myocardial infarction) ICD Codes: I21.4 - Non-ST elevation (NSTEMI) myocardial infarction SNOMED: 438019195 (7) Acute on chronic anemia (8) Hyponatremia ICD Codes: E87.1 - Hypo-osmolality and hyponatremia SNOMED: 27754165 (9) paroxsymal atrial fibrillation (10) CAD s/p PCI (11) Ischemic cardiomyopathy ICD Codes: I25.5 - Ischemic cardiomyopathy SNOMED: 730871255 (12) CVA (cerebral vascular accident) ICD Codes: I63.9 - Cerebral infarction, unspecified SNOMED: 808864241 (13) Alzheimer's dementia ICD Codes: G30.9 - Alzheimer's disease, unspecified SNOMED: 72613141 (14) Hypernatremia ICD Codes: E87.0 - Hyperosmolality and hypernatremia SNOMED: 88209363 (15) MABEL (acute kidney injury) ICD Codes: N17.9 - Acute kidney failure, unspecified SNOMED: 07303101 (16) NSVT (nonsustained ventricular tachycardia) ICD Codes: I47.2 - Ventricular tachycardia SNOMED: 770555432 Discharge Condition Upon Discharge: stable Discharge Disposition Patient was discharged to Discharge Diagnoses: Kilo López M.D. Aug 02, 2017 13:09
--- NOTE | 2017-08-07 11:29 | Discharge Summary ---
Discharge Summary Hospital Course Date of Admission Jul 16, 2017 at 19:26 Date of Discharge Aug 01, 2017 at 19:45 Admitting Diagnosis RESPIRATORY DISTRESS HPI Beatriz Loving is a 87 year old female who was admitted on Jul 16, 2017 at 19:26 for Respiratory Distress Hospital Course [id number] Discharge Discharge Disposition Patient Discharge Diagnoses: Mayda Aguilera NP Aug 07, 2017 11:29
--- NOTE | 2017-08-07 17:30 | Discharge Summary 2 SIG ---
DATE OF ADMISSION: 07/16/2017 DATE OF DISCHARGE: 08/01/2017 BRIEF SUMMARY: The patient is an unfortunate 87-year-old female with history of ischemic cardiomyopathy, CVA, coronary artery disease, status post PCI to LAD on 10/20/2016, history of paroxysmal atrial fibrillation, on Eliquis, Alzheimer's dementia, and status post percutaneous endoscopic gastrostomy with diffuse severe gastropathy, was noted to be in respiratory distress with hypoxia at assisted. O2 saturation was in the 80s and the patient was more lethargic. In ED, she was hypoxic and hypercapnic on ABG. She was initially placed on BiPAP, however, failed to improve. She was eventually intubated. Workup showed leukocytosis and lactic acidosis. She had elevated troponin 10. She was orally intubated and was admitted to intensive care unit and was started on heparin drip. She was started empirically on meropenem, vancomycin, and azithromycin. She was afebrile and was pancultured. Troponin levels were monitored. An EKG showed low voltage QRS. No ST elevation. Echocardiogram showed ejection fraction of 50% with no evidence of left ventricular hypertrophy with mild diastolic dysfunction. The patient had anemia. She was given blood transfusion. Gastrointestinal was also consulted. The patient with positive gastric lavage, however, unable to undergo endoscopy due to elevated troponin and respiratory failure. She was started on Protonix drip. She also underwent neurological evaluation. The patient has acute toxic metabolic encephalopathy. Head CT was negative for acute intracranial bleed or mass effect with chronic age-related changes. Venous duplex of lower extremity was negative for DVT bilaterally. She was given IV Venofer and was eventually started on tube feedings. She was extubated on 07/21/2017 and was placed on BiPAP. She was continued on intravenous vancomycin, Zosyn, and azithromycin. Amikacin was discontinued. Initial blood culture did not isolate any growth and urine culture with E. coli and MRSA Staph. Leukocytosis worsened. Flagyl and Diflucan was added. The patient was re-cultured. Troponin was down trending. She was continued on heparin drip. Goals of care was discussed with family and family wants full treatment done. On 07/26/2017, the patient had worsening respiratory status. She was again orally intubated and was back on mechanical ventilation. Dr. Del Valle was consulted and the patient underwent tracheostomy placement on 07/29/2017. She was transferred to [facility] after tracheostomy. She was having acute kidney injury and hypernatremia. BUN and creatinine were trending up and the patient remained acidotic and hypercarbic. On 08/01/2017, Brandon Munoz was called. The patient became bradycardic and lost pulses. She was started on IV pressors, was given epinephrine, calcium gluconate, and bicarbonate. The patient regained pulses briefly but during transfer to intensive care unit, again had asystole. She was continued on chest compressions with multiple rounds of epinephrine. Resuscitative efforts failed and the patient eventually . FINAL DIAGNOSES: 1. Sepsis. 2. Acute respiratory failure. 3. Status post tracheostomy. 4. Severe sepsis. 5. Healthcare-acquired pneumonia. 6. Aspiration pneumonia. 7. Urinary tract infection. 8. Lactic acid acidosis. 9. Acute yep-GW-nxmzwtrm myocardial infarction. 10. Acute on chronic anemia requiring blood transfusion. 11. Hyponatremia. 12. Paroxysmal atrial fibrillation. 13. CAD status post PCI. 14. Ischemic cardiomyopathy. 15. Cerebrovascular accident. 16. Alzheimer's dementia. 17. Hypernatremia. 18. Acute kidney injury. 19. Nonsustained ventricular tachycardia. Kilo López M.D. I have been assigned to dictate discharge summary on this account and I was not involved in the patient's management. Mayda Aguilera N.P. DR: JAIME JOB#: [id number] CC: TALYA
== END 2017-08-01 19:45 | disposition expired | DRG 4 ==
LOC: EDBD 18:39 → EMR 19:24 → ICU 19:26 → EDBEDREQSVC 20:34 → EDBEDREQ 23:02 → 2W 07-30 14:40 → ICU 08-01 19:25
PROC: 06HM33Z Insertion of Infusion Device into Right Femoral Vein, Percutaneous Approach (ICD-10-PCS; principal; 2017-07-16)
PROC: 5A1955Z Respiratory Ventilation, Greater than 96 Consecutive Hours (ICD-10-PCS; principal; 2017-07-16)
PROC: 0BH17EZ Insertion of Endotracheal Airway into Trachea, Via Natural or Artificial Opening (ICD-10-PCS; principal; 2017-07-16)
PROC: 02HV33Z Insertion of Infusion Device into Superior Vena Cava, Percutaneous Approach (ICD-10-PCS; 2017-07-24)
PROC: 5A1955Z Respiratory Ventilation, Greater than 96 Consecutive Hours (ICD-10-PCS; 2017-07-26)
PROC: 0BH17EZ Insertion of Endotracheal Airway into Trachea, Via Natural or Artificial Opening (ICD-10-PCS; 2017-07-26)
PROC: 0B110F4 Bypass Trachea to Cutaneous with Tracheostomy Device, Open Approach (ICD-10-PCS; 2017-07-29)
DX: A41.01 Sepsis due to Methicillin susceptible Staphylococcus aureus (principal); I21.4 Non-ST elevation (NSTEMI) myocardial infarction; R65.21 Severe sepsis with septic shock; E43 Unspecified severe protein-calorie malnutrition; G92 Toxic encephalopathy; I50.33 Acute on chronic diastolic (congestive) heart failure; J15.211 Pneumonia due to Methicillin susceptible Staphylococcus aureus; N17.9 Acute kidney failure, unspecified; E87.0 Hyperosmolality and hypernatremia; K92.2 Gastrointestinal hemorrhage, unspecified; J96.02 Acute respiratory failure with hypercapnia; R53.2 Functional quadriplegia; J96.01 Acute respiratory failure with hypoxia; J80 Acute respiratory distress syndrome; N39.0 Urinary tract infection, site not specified; I47.1 Supraventricular tachycardia; E87.1 Hypo-osmolality and hyponatremia; E87.2 Acidosis; Z99.11 Dependence on respirator [ventilator] status; Z93.1 Gastrostomy status; D64.9 Anemia, unspecified; B95.61 Methicillin susceptible Staphylococcus aureus infection as the cause of diseases classified elsewhere; Z68.28 Body mass index [BMI] 28.0-28.9, adult; I11.0 Hypertensive heart disease with heart failure; I25.5 Ischemic cardiomyopathy; I25.10 Atherosclerotic heart disease of native coronary artery without angina pectoris; Z98.61 Coronary angioplasty status; I48.0 Paroxysmal atrial fibrillation; Z79.01 Long term (current) use of anticoagulants; G30.9 Alzheimer's disease, unspecified; F02.80 Dementia in other diseases classified elsewhere, unspecified severity, without behavioral disturbance, psychotic disturbance, mood disturbance, and anxiety; K31.9 Disease of stomach and duodenum, unspecified; E86.0 Dehydration; R13.10 Dysphagia, unspecified; R47.1 Dysarthria and anarthria; I44.7 Left bundle-branch block, unspecified; R62.7 Adult failure to thrive
CPT/HCPCS: 31500; 36415; 36569; 36600; 70450; 71010; 71250; 74176; 76937; 80048; 80053; 80061; 80150; 80202; 81003; 82164; 82248; 82270; 82550; 82553; 82607; 82728; 82746; 82803; 82962; 83540; 83550; 83605; 83735; 83880; 84100; 84439; 84443; 84478; 84484; 85007; 85025; 85044; 85610; 85730; 86703; 86850; 86900; 86901; 86920; 87040; 87070; 87081; 87086; 87181; 87205; 87324; 92950; 93005; 93306; 93970; 94002; 94003; 94150; 94640; 94660; 94664; 94760; 95819; J2250; J7620; J8499